=== PATIENT | female | born 1950 | race Native Hawaiian/Other Pacific Islander ===

== ENCOUNTER 2016-12-24 06:19 | Emergency (ER) | payer MEDICARE, OTHER ==
[2016-12-24] MEDS ORDERED: IPRATROPIUM/ALBUTEROL 3 ML NEB INH STA (06:31)
--- NOTE | 2016-12-24 06:32 | ED Physician Documentation ---
PD HPI URI - Stated complaint Stated Complaint: FEVER - Chief complaint Chief Complaint: Fever - History obtained from History obtained from: Patient, Family - History of Present Illness Timing - onset: How many weeks ago (1) Timing details: Gradual onset, Still present Associated symptoms: Fever, Chills, Nasal congestion, Rhinorrhea, Productive cough, Hemoptysis Contributing factors: Sick contact Improves by: Nothing Similar symptoms before: Work up / diagnostics, Treatment Recently seen: Not recently seen - Additional information Additional information: Patient is a 66 year old female who is presenting to the emergency department for cough, congestion and fever. Patient states that the sympotms have been going on for about the last week but they are getting progressively worse. Patient states that she coughed up some blood and was found to have a high fever at home so the family brought her in. Review of Systems Constitutional: reports: Fever, Myalgias Eyes: denies: Loss of vision, Decreased vision Ears: denies: Loss of hearing, Ear pain, Drainage/discharge Nose: reports: Rhinorrhea / runny nose, Congestion, Sinus pressure / pain Throat: denies: Dental pain / toothache, Oral lesions / sores, Sore throat Cardiac: denies: Chest pain / pressure, Pedal edema Respiratory: reports: Dyspnea, Cough GI: denies: Abdominal Pain, Nausea, Vomiting, Constipation, Diarrhea : denies: Dysuria, Frequency, Hesitancy Musculoskeletal: denies: Neck pain, Back pain, Extremity pain, Joint pain, Extremity swelling Neurologic: denies: Generalized weakness, Focal weakness, Numbness Psychiatric: denies: Depressed, Suicidal Immunocompromised: denies: Immunocompromised PD PAST MEDICAL HISTORY - Past Medical History Cardiovascular: Murmur Respiratory: COPD Neuro: None Endocrine/Autoimmune: Type 2 diabetes, HyPOthyroidism GI: GERD LINUX SYSTEM 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: None : Other HEENT: None Psych: None Musculoskeletal: Osteoarthritis Derm: None - Past Surgical History Past Surgical History: Yes General: Appendectomy /LINUX SYSTEM 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: Hysterectomy Cardiovascular: Valve replacement - Present Medications Home Medications: Ambulatory Orders Medication Instructions Recorded Confirmed Fluticasone/Salmeterol [Advair 1 puffs INH BID 10/13/14 09/08/16 500-50 Diskus] Meacham-3 Fatty Acids/Fish Oil [Fish 1,000 mg PO DAILY 10/13/14 09/08/16 Oil 1,000 mg Capsule] Aspirin [Adult Low Dose Aspirin EC] 81 mg PO DAILY 05/12/16 09/08/16 Atorvastatin Calcium 40 mg PO QPM 05/12/16 09/08/16 Levothyroxine [Synthroid] 112 mcg PO DAILY 05/12/16 09/08/16 Losartan [Cozaar] 100 mg PO DAILY 05/12/16 09/08/16 Metoprolol Succinate [Toprol Xl] 12.5 mg PO BID 09/08/16 09/08/16 Multivitamin [Multiple Vitamins] 1 tab PO DAILY 09/08/16 09/08/16 Pantoprazole Sodium [Protonix] 40 mg PO DAILY 09/08/16 09/08/16 Levofloxacin [Levaquin] 750 mg PO DAILY #4 tablet 12/24/16 - Allergies Allergies/Adverse Reactions: Allergies Allergy/AdvReac Type Severity Reaction Status Date / Time gentamicin Allergy Dizziness Verified 12/24/16 06:25 - Social History Does the pt smoke?: No Smoking Status: Former smoker Does the pt drink ETOH?: Yes Does the pt have substance abuse?: No - Immunizations Immunizations are current?: Yes Immunizations: TDAP >10years/unknown - POLST Patient has POLST: No PD ED PE NORMAL - General General: Alert and oriented X 3, Well developed/nourished - HEENT HEENT: Atraumatic, PERRL, Pharynx benign - Neck Neck: Supple, no meningeal sign, No JVD - Cardiac Cardiac: RRR, No murmur - Respiratory Respiratory: No respiratory distress - Abdomen Abdomen: Soft, Non tender, Non distended - Derm Derm: Normal color, No rash - Extremities Extremities: No deformity, No edema - Neuro Neuro: Alert and oriented X 3, coffee grinder 2-12 intact, No motor deficit, No sensory deficit, Normal speech - Psych Psych: Normal mood, Normal affect PD ED PE EXPANDED - General General: Other (diaphoretic) - Respiratory Respiratory: Decreased breath sounds, Right lower lobe, Left lower lobe. No: Labored, Stridor Results - Vitals Vitals: Vital Signs - 24 hr 12/24/16 06:22 Temperature 37.4 C Heart Rate 95 Respiratory 20 Rate Blood Pressure 147/52 H O2 Saturation 99 Oxygen O2 Source [] Room air O2 Source Room air - Labs Labs: Laboratory Tests 12/24/16 12/24/16 12/24/16 06:35 06:37 06:37 WBC 15.9 H RBC 4.05 L Hgb 13.2 Hct 39.8 MCV 98.4 MCH 32.6 H MCHC 33.1 RDW 14.0 Plt Count 159 MPV 8.2 Sodium 137 Potassium 4.0 Chloride 102 Carbon Dioxide 24 Anion Gap 11.0 BUN 27 H Creatinine 1.5 H Estimated GFR (MDRD) 35 L Glucose 168 H Lactic Acid Calcium 9.4 Total Bilirubin 0.8 AST 37 ALT 30 Alkaline Phosphatase 82 Total Protein 8.6 H Albumin 4.2 Globulin 4.4 H Albumin/Globulin Ratio 1.0 Lipase 32 Urine Color YELLOW Urine Clarity CLEAR Urine pH 5.5 Ur Specific [place] 1.025 Urine Protein 100 H Urine Glucose (UA) NEGATIVE Urine Ketones NEGATIVE Urine Occult Blood MODERATE H Urine Nitrite NEGATIVE Urine Bilirubin NEGATIVE Urine Urobilinogen 0.2 (NORMAL) Ur Leukocyte Esterase NEGATIVE Urine RBC 0-5 Urine WBC 0-3 Ur Squamous Epith Cells RARE Squamous Urine Bacteria Rare Ur Microscopic Review INDICATED Urine Culture Comments NOT INDICATED 12/24/16 06:37 WBC RBC Hgb Hct MCV MCH MCHC RDW Plt Count MPV Sodium Potassium Chloride Carbon Dioxide Anion Gap BUN Creatinine Estimated GFR (MDRD) Glucose Lactic Acid 0.9 Calcium Total Bilirubin AST ALT Alkaline Phosphatase Total Protein Albumin Globulin Albumin/Globulin Ratio Lipase Urine Color Urine Clarity Urine pH Ur Specific [place] Urine Protein Urine Glucose (UA) Urine Ketones Urine Occult Blood Urine Nitrite Urine Bilirubin Urine Urobilinogen Ur Leukocyte Esterase Urine RBC Urine WBC Ur Squamous Epith Cells Urine Bacteria Ur Microscopic Review Urine Culture Comments - Rads (name of study) chest x-ray Radiology: EMP read indepedently (new right lower lobe infiltrate, stable consolidation) PD MEDICAL DECISION MAKING - ED course Complexity details: reviewed old records, reviewed results, re-evaluated patient , considered differential, d/w patient, d/w family ED course: Patient was seen and examined at bedside. Labs were drawn and urine was collected. patient had normal vital signs including temperature. Patient was sent for imaging. When patient returned patient was treated with a nebulizer treatment. Chest x-ray revelaed right lower lobe pneumonia. Patient was started on levaquin since she had urinary symptoms and hematuria as well. Patient tolerated the treatement well. Patient had low psi/port score and was stable for discharge with outpatient follow up. Departure - Departure Disposition: 01 Home, Self Care Clinical Impression: Pneumonia Condition: Good Instructions: Pneumonia Tx Follow-Up: Aramis Godfrey MD [Primary Care Provider] - Within 1 week (re-evaluate for symptoms) Prescriptions: Levofloxacin [Levaquin] 750 mg PO DAILY #4 tablet Comments: Your symptoms today are being caused by pneumonia. You had your first dose of antibiotics and you will need to take it daily for the next 4 days. You should take it with yogurt or probiotics to help diminish the GI side effects. You should follow up with your pmd early next week. You may return to the emergency department at any time for new, worsening or uncontrollable symptoms.
[2016-12-24 06:46] LABS: BASOPHILS # (AUTO) 0.1 10^3/uL (0.0-0.1); BASOPHILS % (AUTO) 0.4 %; EOSINOPHILS % (AUTO) 0.3 %; HCT - HEMATOCRIT 39.8 % (37.0-47.0); HGB - HEMOGLOBIN 13.2 g/dL (12.0-16.0); LYMPHOCYTES # (AUTO) 1.2 10^3/uL (1.5-3.5); LYMPHOCYTES % (AUTO) 7.6 %; MEAN CORPUSCULAR HEMOGLOBIN 32.6 pg (27.0-31.0); MEAN CORPUSCULAR HGB CONC 33.1 g/dL (32.0-36.0); MEAN CORPUSCULAR VOLUME 98.4 fL (81.0-99.0); MEAN PLATELET VOLUME 8.2 fL (7.9-10.8); MONOCYTES # (AUTO) 0.9 10^3/uL (0.0-1.0); MONOCYTES % (AUTO) 5.7 %; NEUTROPHILS # (AUTO) 13.7 10^3/uL (1.5-6.6); RED BLOOD COUNT 4.05 10^6/uL (4.20-5.40); UNCORRECTED WHITE BLOOD COUNT 15.9 x10^3/uL; WHITE BLOOD COUNT 15.9 x10^3/uL (4.8-10.8)
[2016-12-24 06:47] LABS: BILIRUBIN,URINE NEGATIVE (NEGATIVE); PH,URINE 5.5 PH (5.0-7.5)
[2016-12-24] MEDS ORDERED: IPRATROPIUM/ALBUTEROL 3 ML NEB INH ONE (06:52)
[2016-12-24 06:54] LABS: UA w/ MICROSCOPIC CHARGE YES
[2016-12-24 06:56] LABS: BILIRUBIN,TOTAL 0.8 mg/dL (0.2-1.0); CALCIUM 9.4 mg/dL (8.5-10.3); CREATININE 1.5 mg/dL (0.4-1.0); TOTAL PROTEIN 8.6 g/dL (6.7-8.2)
[2016-12-24] MEDS ORDERED: levoFLOXacin 250 MG TABLET PO STA ×2 (07:07)
[2016-12-24 07:11] LABS: UR CULTURE IF IND NOT INDICATED; WBC,URINE 0-3 /HPF (0-5)
[2016-12-24] MEDS ORDERED: levoFLOXacin 250 MG TABLET PO ONE (07:16)
--- NOTE | 2016-12-24 07:24 | XRAY Preliminary Report ---
Exam: XR Chest 2 View PA/LAT IMPRESSION: 1. New patchy bibasilar groundglass opacities may reflect pneumonia in the proper clinical setting. 2. Stable somewhat ovoid nodular opacity projecting at the right mid lung. [facility] SITE ID: [id number]
--- NOTE | 2016-12-24 07:26 | XRAY Report ---
EXAM: CHEST RADIOGRAPHY EXAM DATE: 12/24/2016 06:58 AM. CLINICAL HISTORY: Fever, cough. COMPARISON: 09/08/2016. TECHNIQUE: 2 views. FINDINGS: Lungs/Pleura: Mildly low lung volumes. Mild vascular congestion. Patchy groundglass opacities at the lung bases . Ovoid nodular opacity at the right mid lung appear stable. No pleural effusion. No pneum othorax. Mediastinum: Stable cardiac silhouette size and prior sternotomy changes. Atherosclerotic vascular ca lcification. Other: None. IMPRESSION: 1. New patchy bibasilar groundglass opacities may reflect pneumonia in the proper clinical setting. 2. Stable somewhat ovoid nodular opacity projecting at the right mid lung. [facility] Referring Provider Line: [phone] SITE ID: [id number]
[2016-12-24 07:28] VITALS: BP 125/46
[2016-12-24 07:42] LABS: NP AUTO DIFFERENTIAL? NO; NP MAN DIFFERENTIAL? YES; PLATELET ESTIMATE, MANUAL NORMAL (130-450,000) (NORMAL); PLATELET MORPHOLOGY NORMAL APPEARANCE (NORMAL)
== END 2016-12-24 07:45 | disposition home or self-care (01) ==
LOC: ED 06:19
DX: J18.9 Pneumonia, unspecified organism (principal); R31.9 Hematuria, unspecified; J44.9 Chronic obstructive pulmonary disease, unspecified; E11.9 Type 2 diabetes mellitus without complications; E03.9 Hypothyroidism, unspecified; Z95.2 Presence of prosthetic heart valve; Z79.82 Long term (current) use of aspirin; Z87.891 Personal history of nicotine dependence
CPT/HCPCS: 36415; 71020; 80053; 81001; 83605; 83690; 85025; 94640; 99283; 99284; A9270; J7620; 81003; 87086; 94664

== ENCOUNTER 2017-05-19 22:27 | Inpatient (IN) | payer MEDICARE, OTHER ==
[2017-05-19] MEDS ORDERED: SUCRALFATE 1 GM/10 ML UDC PO STA (23:21)
[2017-05-19] MEDS ORDERED: MAG HYDROX/AL HYDROX/SIMETH 30 ML UDC PO STA (23:21)
[2017-05-19] MEDS ORDERED: LIDOCAINE VISCOUS 2% 100 ML BOTTLE MM STA (23:21)
[2017-05-19] MEDS ORDERED: LIDOCAINE VISCOUS 2% 15 ML UDC MM ONE (23:30)
[2017-05-19] MEDS ORDERED: SUCRALFATE 1 GM/10 ML UDC ONE (23:30)
[2017-05-19] MEDS ORDERED: MAG HYDROX/AL HYDROX/SIMETH 30 ML UDC ONE (23:30)
[2017-05-20] MEDS ORDERED: ONDANSETRON 4 MG/2 ML VIAL IVP STA (00:05)
[2017-05-20] MEDS ORDERED: HYDROmorphone 1 MG/ML SYRINGE IVP STA (00:05)
[2017-05-20] MEDS ORDERED: HYDROmorphone 1 MG/ML SYRINGE ONE (00:11)
[2017-05-20] MEDS ORDERED: ONDANSETRON 4 MG/2 ML VIAL ONE (00:11)
[2017-05-20] MEDS ORDERED: SODIUM CHLORIDE 0.9% 1,000 ML IV ONE (00:42)
[2017-05-20] MEDS ORDERED: IOPAMIDOL-300 100 ML VIAL IVP ONE (02:16)
[2017-05-20] MEDS ORDERED: SODIUM CHLORIDE FLUSH 0.9% 10 ML SYRINGE IVP PRN (04:28)
[2017-05-20] MEDS: SODIUM CHLORIDE FLUSH 0.9% 10 ML SYRINGE IVP SCH ×3 (05:09→23:28)
[2017-05-20] MEDS: SODIUM CHLORIDE 0.9% 1,000 ML IV SCH ×2 (05:09→15:42)
[2017-05-20] MEDS: MORPHINE 2 MG/ML SYRINGE IVP PRN ×4 (05:10→23:40)
[2017-05-20] MEDS ORDERED: LEVOTHYROXINE 25 MCG TABLET ONE (06:27)
[2017-05-20] MEDS ORDERED: LEVOTHYROXINE 100 MCG TABLET ONE (06:27)
[2017-05-20] MEDS: LEVOTHYROXINE 112 MCG TABLET PO SCH (06:32)
[2017-05-20] MEDS ORDERED: FLUTICASONE/SALMETEROL 500/50 INHALER INH SCH (07:00)
[2017-05-20] MEDS: LOSARTAN 50 MG TABLET PO SCH (08:27)
[2017-05-20] MEDS: ASPIRIN EC 81 MG TABLET PO SCH (08:27)
[2017-05-20] MEDS: MULTIVITAMIN TABLET PO SCH (08:27)
[2017-05-20] MEDS: METOPROLOL SUCCINATE 25 MG TABLET PO SCH ×2 (08:27→21:34)
[2017-05-20] MEDS: POLYETHYLENE GLYCOL 3350 17 GM PACKET PO SCH (08:31)
[2017-05-20] MEDS ORDERED: PANTOPRAZOLE 40 MG TABLET PO SCH (09:00)
[2017-05-20] MEDS ORDERED: NON FORMULARY MED (Multivitamin [Multiple Vitamins] 1 TAB) PO SCH (09:00)
[2017-05-20] MEDS: HEPARIN 5,000 UNIT/ML VIAL SUBQ SCH ×2 (09:00→21:35)
[2017-05-20] MEDS ORDERED: SALMETEROL INH SCH (09:00)
[2017-05-20] MEDS ORDERED: FLUTICASONE INH SCH (09:00)
[2017-05-20] MEDS ORDERED: AZITHROMYCIN INJ 500 MG in SODIUM CHLORIDE 0.9% 250 ML IV SCH (09:00)
[2017-05-20] MEDS: BUDESONIDE 0.5 MG/2 ML NEB INH SCH ×2 (09:30→19:47)
[2017-05-20] MEDS: FORMOTEROL FUMARATE NEB 20 MCG/2 ML INH SCH ×2 (09:30→19:47)
[2017-05-20] MEDS: metroNIDAZOLE 500 MG/100 ML 100 ML IV SCH ×2 (10:16→17:57)
[2017-05-20] MEDS: ONDANSETRON 4 MG/2 ML VIAL IVP PRN ×2 (10:31→23:40)
[2017-05-20] MEDS: PANTOPRAZOLE 40 MG VIAL IVP SCH (11:00)
[2017-05-20] MEDS: ATORVASTATIN 40 MG TABLET PO SCH ×2 (21:25→21:35)
[2017-05-21] MEDS: SODIUM CHLORIDE 0.9% 1,000 ML IV SCH ×2 (00:46→09:40)
[2017-05-21] MEDS: metroNIDAZOLE 500 MG/100 ML 100 ML IV SCH ×2 (01:38→11:07)
[2017-05-21] MEDS: SODIUM CHLORIDE FLUSH 0.9% 10 ML SYRINGE IVP SCH ×2 (05:34→14:05)
[2017-05-21] MEDS: ONDANSETRON 4 MG/2 ML VIAL IVP PRN (05:59)
[2017-05-21] MEDS: PANTOPRAZOLE 40 MG VIAL IVP SCH (06:01)
[2017-05-21] MEDS: LEVOTHYROXINE 112 MCG TABLET PO SCH (06:03)
[2017-05-21] MEDS: BUDESONIDE 0.5 MG/2 ML NEB INH SCH (07:43)
[2017-05-21] MEDS: FORMOTEROL FUMARATE NEB 20 MCG/2 ML INH SCH (07:44)
[2017-05-21] MEDS: ASPIRIN EC 81 MG TABLET PO SCH (08:50)
[2017-05-21] MEDS: POLYETHYLENE GLYCOL 3350 17 GM PACKET PO SCH (08:50)
[2017-05-21] MEDS: METOPROLOL SUCCINATE 25 MG TABLET PO SCH (08:50)
[2017-05-21] MEDS: LOSARTAN 50 MG TABLET PO SCH (08:50)
[2017-05-21] MEDS: MULTIVITAMIN TABLET PO SCH (08:50)
[2017-05-21] MEDS: HEPARIN 5,000 UNIT/ML VIAL SUBQ SCH (08:51)
[2017-05-21] MEDS ORDERED: DOCUSATE SODIUM 100 MG CAPSULE PO SCH (14:00)
== END 2017-05-21 15:06 | disposition home or self-care (01) | DRG 390 ==
DX: K56.60 Unspecified intestinal obstruction (principal); E78.5 Hyperlipidemia, unspecified; E11.8 Type 2 diabetes mellitus with unspecified complications; I10 Essential (primary) hypertension; K21.9 Gastro-esophageal reflux disease without esophagitis; M19.90 Unspecified osteoarthritis, unspecified site; J45.909 Unspecified asthma, uncomplicated; J44.9 Chronic obstructive pulmonary disease, unspecified; E03.9 Hypothyroidism, unspecified; E11.9 Type 2 diabetes mellitus without complications; Z95.3 Presence of xenogenic heart valve; Z79.82 Long term (current) use of aspirin; Z79.899 Other long term (current) drug therapy; Z87.891 Personal history of nicotine dependence; Z87.01 Personal history of pneumonia (recurrent); Z86.79 Personal history of other diseases of the circulatory system; R91.1 Solitary pulmonary nodule; Z79.51 Long term (current) use of inhaled steroids

== ENCOUNTER 2017-11-11 08:00 | Outpatient (CLI) | payer MEDICARE, OTHER ==
[2017-11-11 16:53] LABS: PT - PROTHROMBIN TIME 59.3 secs (9.9-12.6)
[2017-11-11 17:10] LABS: INR 5.6 (0.8-1.2)
== END 2017-11-11 08:01 | disposition home or self-care (01) ==
LOC: LAB.R 08:00
PROVIDERS: ATTEND Family Medicine
DX: Z95.2 Presence of prosthetic heart valve (principal)
CPT/HCPCS: 85610

== ENCOUNTER 2018-01-18 09:50 | Outpatient (CLI) | payer MEDICARE, OTHER ==
[2018-01-18 10:09] LABS: PT - PROTHROMBIN TIME 11.3 secs (9.9-12.6)
== END 2018-01-18 09:51 | disposition home or self-care (01) ==
LOC: LAB 09:50
PROVIDERS: ATTEND Family Medicine
DX: I10 Essential (primary) hypertension (principal); Z95.2 Presence of prosthetic heart valve; E03.9 Hypothyroidism, unspecified; M12.89 Other specific arthropathies, not elsewhere classified, multiple sites
CPT/HCPCS: 84443; 85610

== ENCOUNTER 2018-01-24 08:44 | Day surgery (SDC) | payer MEDICARE, OTHER ==
[2018-01-24] MEDS ORDERED: ceFAZolin 2 GM/50 ML 2 GM/50 ML BAG IV ONE (08:54)
[2018-01-24] MEDS ORDERED: LACTATED RINGERS 1,000 ML IV ONE (08:57)
[2018-01-24] MEDS ORDERED: BUPIVACAINE 0.5% PF 10 ML VIAL IM ONE (09:30)
[2018-01-24] MEDS ORDERED: LIDOCAINE 1%-EPI 1:100000 20 ML MDV ONE (09:35)
[2018-01-24] MEDS ORDERED: BUPIVACAINE 0.5% PF 10 ML VIAL ONE (09:35)
[2018-01-24] MEDS ORDERED: PROPOFOL 200 MG/20 ML VIAL IVP ONE (12:00)
[2018-01-24] MEDS ORDERED: fentaNYL 250 MCG/5 ML VIAL IVP ONE (12:00)
--- NOTE | 2018-01-24 12:13 | XRAY Report ---
INTRAPROCEDURAL FLUOROSCOPIC PROCEDURE: 01/24/2018 INDICATION: Intraop. TECHNIQUE: Two images, total fluoro time 57 seconds. Total dose 0.09 milligray. FINDINGS: Two images. The final image shows a left central catheter with the tip overlying the superior vena cava. Please refer to the operative report for further details. IMPRESSION: INTRAOPERATIVE FLUORO ABOVE. TD: 01/24/2018 12:12 MTDD
[2018-01-24] MEDS ORDERED: ACETAMINOPHEN 325 MG TABLET PO ONE (12:54)
--- NOTE | 2018-01-24 13:37 | XRAY Report ---
FRONTAL CHEST: 01/24/2018 COMPARISON: Frontal chest 12/24/2016 and intraprocedural views earlier in the day. INDICATION: Port placement. TECHNIQUE: Single frontal view. FINDINGS: Right pleural effusion and right basilar atelectasis are more conspicuous on this exam. No pneumothorax. Mediastinum stable. Sternotomy noted. Left thoracic port, tip overlies possibly the SVC or azygos vein. IMPRESSION: THORACIC PORT ABOVE. LATERAL VIEW MAY HELP IN LOCALIZATION OF THE TIP. TD: 01/24/2018 13:37 [facility]
--- NOTE | 2018-01-24 13:42 | XRAY Report ---
LATERAL CHEST VIEW: 01/24/2018 COMPARISON: Comparison study frontal chest earlier in the day. INDICATION: Line placement. TECHNIQUE: One lateral view only. FINDINGS: Left thoracic port, tip appears to overlie the superior vena cava. Right pleural effusion is noted. Sternotomy and heart valve prosthesis are noted. IMPRESSION: CATHETER TIP APPEARS TO OVERLIE THE SUPERIOR VENA CAVA. TD: 01/24/2018 13:42 [facility]
[2018-01-24 13:44] VITALS: BP 150/72
--- NOTE | 2018-01-24 13:55 | OPERATIVE REPORT ---
Operative Report - General Procedure Date: 01/24/18 Pre-Op Diagnosis: cancer Procedure Performed: indwelling central catheter placement Post Op Diagnosis: cancer - Procedure Note Primary Surgeon: andrew Anesthesia Technique: MAC - Other Other Information/Narrative: Indication for procedure: This is a 67-year-old female with a history of concomitant lung and breast cancer who will require chemotherapy. Findings after obtaining informed consent from the patient she was brought into the operating room and positioned on the operating table in the supine position taking noted pressure points. Shoulder roll was placed. She was administered sedation. She was then prepped and draped in the usual sterile fashion. Perioperative antibiotics were administered. A timeout was taken according to protocol. Using her bony landmarks the finder needle was inserted below the left clavicle and advanced into the left subclavian vein without difficulty. The guidewire was threaded but would not advance. The guidewire was removed and the needle was repositioned however I could not regain access into the subclavian vein. For this reason I attempted ultrasound guidance of subclavian vein cannulation but I was unable to clearly identify the subclavian vein. I then moved to the left internal jugular vein. This was easily accessed under ultrasound guidance. The guidewire was inserted and again did not thread easily. The guidewire was removed and good blood flow from the needle was confirmed. I then exchanged the guidewire for a glide wire which did advance easily.The Port-A-Cath pocket was then created by creating a 1/2 cm incision on the left anterior chest wall and deepened down to the pectoralis fascia. The pocket was created with blunt dissection. The tunneling device was then used to tunnel the catheter from the pocket to the IJ needle insertion site after extending this incision slightly. Under fluoroscopic guidance the dilator and Peel-away sheath were inserted over the Glidewire using a Seldinger technique and was seen to be advancing along appropriate planes and advanced easily. The dilator and wire were removed and the catheter inserted under fluoroscopy. During fluoroscopy the catheter was noted to be flipping up towards the patient' s right subclavian vein as I attempted to advance. I manipulated the catheter several times but was unable to manipulate the catheter to descend into the SVC. I attempted to reinsert both the guide and the Glidewire through the catheter distally to reorient to the catheter but was unable to do so because of the bend in the catheter at the neck. At this point the Guidewires were removed and the catheter was cut at the level of the neck. The distal portion of the catheter was withdrawn through the tunneling site. I then reinserted the Glidewire through the catheter and under fluoroscopic guidance directed down towards the IVC. The wire was noted to be into the right atrium. The catheter was removed. Again under fluoroscopic guidance the dilator and peel- away sheath were inserted over the wire using a Seldinger technique and again were seen to advance along appropriate planes into the SVC. The wire and dilator were removed and the new catheter inserted. This time, however, I had some difficulty advancing the catheter as there seemed to be a kink in the sheath. Sheath was pulled back slightly and eventually I was able to insert the catheter. At this point fluoroscopy demonstrated the catheter to likely be seated in the superior vena cava. The catheter was then pulled back so that no kinks were left in the catheter and trimmed to the appropriate length. It was then connected to the port. The port was then sutured to the pectoralis fascia using 2 3-0 Prolene sutures. Prior to skin closure the port was accessed with a Villegas needle and demonstrated good blood flow with ease of flushing with heparinized saline. The subcutaneous tissue was closed with 3-0 Vicryl and the skin incisions closed with 4-0 Monocryl. Dermabond was applied. The patient was extubated and taken to the recovery room in stable condition. Postoperative chest x-ray demonstrated the catheter to be sitting in the superior vena cava. 25 cc of local anesthetic was used throughout the procedure. EBL 10 cc
== END 2018-01-24 08:45 | disposition home or self-care (01) ==
LOC: SDS 08:44
PROVIDERS: ATTEND Surgery
PROC: 0JH60WZ Insertion of Totally Implantable Vascular Access Device into Chest Subcutaneous Tissue and Fascia, Open Approach (ICD-10-PCS; principal; 2018-01-24 10:00)
DX: C50.919 Malignant neoplasm of unspecified site of unspecified female breast (principal); C34.91 Malignant neoplasm of unspecified part of right bronchus or lung; E11.9 Type 2 diabetes mellitus without complications; Z79.82 Long term (current) use of aspirin; I10 Essential (primary) hypertension; E78.00 Pure hypercholesterolemia, unspecified
CPT/HCPCS: 36561; 71045; A9270; C1788; J0690; J3010; J7120

== ENCOUNTER 2018-03-22 08:00 | Outpatient (CLI) | payer MEDICARE, OTHER ==
[2018-03-22 09:18] LABS: CALCIUM 8.7 mg/dL (8.5-10.3); CREATININE 2.2 mg/dL (0.4-1.0)
[2018-03-22 10:27] LABS: CREATININE,URINE 146.3 mg/dL; PROTEIN/CREATININE RATIO,URINE 0.2 (<=0.2)
== END 2018-03-22 08:01 | disposition home or self-care (01) ==
LOC: LAB.R 08:00
PROVIDERS: ATTEND Internal Medicine Nephrology
DX: N05.9 Unspecified nephritic syndrome with unspecified morphologic changes (principal); R80.9 Proteinuria, unspecified; E83.30 Disorder of phosphorus metabolism, unspecified; N25.81 Secondary hyperparathyroidism of renal origin
CPT/HCPCS: 80048; 82570; 83970; 84100; 84156

== ENCOUNTER 2018-04-02 12:10 | Inpatient (IN) | payer MEDICARE, OTHER ==
[2018-04-02] MEDS ORDERED: MECLIZINE 12.5 MG TABLET PO STA (13:15)
--- NOTE | 2018-04-02 13:18 | ED Physician Documentation ---
PD HPI DYSPNEA - Stated complaint Stated Complaint: COUGHING UP BLOOD - Chief complaint Chief Complaint: Resp - History obtained from History obtained from: Patient, Family () - History of Present Illness Timing - onset: Other (67-year-old woman with history of bovine aortic valve replacement not on anticoagulation and more recently she had a VATS lobectomy for lung cancer in October and has been on chemotherapy via a left chest wall port for the last couple of months. Last chemo was about a week ago. Her last 2 weeks she has had an increasing cough and it has been worsening despite taking Keflex. Now today she has chills and increased shortness of breath, generalized weakness, and gross hemoptysis. There is no leg swelling.) Review of Systems Constitutional: reports: Chills. denies: Fever Nose: denies: Rhinorrhea / runny nose, Congestion Throat: denies: Sore throat Cardiac: denies: Chest pain / pressure, Palpitations, Pedal edema, Calf pain Respiratory: reports: Hemoptysis. denies: Wheezing PD PAST MEDICAL HISTORY - Past Medical History Cardiovascular: Murmur Respiratory: COPD, Other Endocrine/Autoimmune: Type 2 diabetes, HyPOthyroidism GI: GERD PROGRAM SUPERVISOR: None : Other HEENT: None Psych: None Musculoskeletal: Osteoarthritis Derm: None Other Past Medical History: history of Lung CA - Past Surgical History Past Surgical History: Yes General: Appendectomy /PROGRAM SUPERVISOR: Hysterectomy Cardiovascular: Valve replacement - Present Medications Home Medications: Ambulatory Orders Medication Instructions Recorded Confirmed Aspirin [Adult Low Dose Aspirin EC] 81 mg PO DAILY 05/12/16 04/02/18 Levothyroxine [Synthroid] 112 mcg PO QDAC 05/12/16 04/02/18 Pantoprazole Sodium [Protonix] 40 mg PO QDAC 09/08/16 04/02/18 Anastrozole 1 mg PO DAILY 12/21/17 04/02/18 LORazepam [Ativan] 0.5 mg PO Q8HR PRN 03/22/18 04/02/18 Fluticasone/Salmeterol [Advair 1 puffs INH BID 04/02/18 04/02/18 500-50 Diskus] Multivitamin [Theragran] 1 tab PO DAILY 04/02/18 04/02/18 [place]-3 Acid Ethyl Esters [Lovaza] 1 gm PO DAILY 04/02/18 04/02/18 Prochlorperazine Maleate 10 mg PO Q6H PRN 04/02/18 04/02/18 - Allergies Allergies/Adverse Reactions: Allergies Allergy/AdvReac Type Severity Reaction Status Date / Time gentamicin Allergy ototoxicity Verified 04/02/18 12:20 - Social History Does the pt smoke?: No Smoking Status: Never smoker Does the pt drink ETOH?: Yes Does the pt have substance abuse?: No - Family History Family history: reports: Non contributory - Immunizations Immunizations are current?: Yes Immunizations: TDAP >10years/unknown - POLST Patient has POLST: No PD ED PE NORMAL - Vitals Vital signs reviewed: Yes - General General: Alert and oriented X 3, No acute distress, Other (Alopecia from the chemotherapy) - HEENT HEENT: PERRL, EOMI - Neck Neck: Supple, no meningeal sign, No bony TTP - Cardiac Cardiac: RRR, Other (2 out of 6 decrescendo systolic murmur) - Respiratory Respiratory: No respiratory distress, Clear bilaterally - Abdomen Abdomen: Soft, Non tender - Back Back: No CVA TTP, No spinal TTP - Derm Derm: Normal color, Warm and dry - Extremities Extremities: No edema, No calf tenderness / cord - Neuro Neuro: Alert and oriented X 3, Normal speech Results - Vitals Vitals: Vital Signs - 24 hr 04/02/18 04/02/18 04/02/18 12:16 13:30 15:51 Temperature 36.7 C 36.2 C L Heart Rate 86 88 85 Respiratory 18 16 17 Rate Blood Pressure 140/57 H 139/60 H 137/68 H O2 Saturation 100 98 99 04/02/18 04/02/18 16:33 17:52 Temperature 37.3 C Heart Rate 86 83 Respiratory 16 16 Rate Blood Pressure 155/82 H 159/129 H O2 Saturation 99 100 Oxygen O2 Source [Without Activity] Room air O2 Source Room air - Labs Labs: Laboratory Tests 04/02/18 04/02/18 04/02/18 14:13 14:13 14:13 WBC 4.8 RBC 2.02 L Hgb 6.5 L* Hct 19.5 L* MCV 96.5 MCH 32.3 H MCHC 33.5 RDW 15.7 H Plt Count 24 L* MPV 10.2 Neut # 3.0 Lymph # 1.5 [place] # 0.2 Eos # 0.0 Baso # 0.0 Absolute Nucleated RBC 0.00 Nucleated RBC % 0.0 PT 11.4 INR 1.0 D-Dimer Sodium 137 Potassium 4.4 Chloride 104 Carbon Dioxide 23 Anion Gap 10.0 BUN 21 H Creatinine 2.2 H Estimated GFR (MDRD) 22 L Glucose 95 Calcium 8.5 Total Bilirubin 0.8 AST 31 ALT 20 Alkaline Phosphatase 81 Troponin I Total Protein 7.1 Albumin 3.7 Globulin 3.4 Albumin/Globulin Ratio 1.1 Lipase 30 Blood Type Antibody Screen Crossmatch IS Only 04/02/18 04/02/18 04/02/18 15:45 18:20 18:20 WBC RBC Hgb Hct MCV MCH MCHC RDW Plt Count MPV Neut # Lymph # [place] # Eos # Baso # Absolute Nucleated RBC Nucleated RBC % PT INR D-Dimer 629.0 H Sodium Potassium Chloride Carbon Dioxide Anion Gap BUN Creatinine Estimated GFR (MDRD) Glucose Calcium Total Bilirubin AST ALT Alkaline Phosphatase Troponin I < 0.04 Total Protein Albumin Globulin Albumin/Globulin Ratio Lipase Blood Type O POSITIVE Antibody Screen NEGATIVE Crossmatch IS Only See Detail - Rads (name of study) CT CHest Radiology: EMP read contemporaneously (Extensive groundglass opacities throughout the right lung favoring infection.) PD MEDICAL DECISION MAKING - ED course ED course: 67-year-old woman with history of prosthetic aortic valve, lung cancer status post lobectomy undergoing chemotherapy presents with 2 weeks of cough with acute worsening today and hemoptysis. Chest x-ray did not show a clear source. I planned to CT her with contrast but her renal function would not tolerate that. Her blood work is notable for significant anemia and thrombocytopenia. I spoke with Dr. Montes for admission and the concern was there might be a major source of hemoptysis of this was followed by noncontrasted CT showing a pneumonia and I spoke with Dr. Montes again for admission at 5:05 PM. Departure - Departure Disposition: [facility] DC/Xfer Clinical Impression: Hemoptysis, Anemia, Thrombocytopenia, Lung cancer, Maintenance chemotherapy following disease, Pneumonia Condition: Stable Discharge Date/Time: 04/02/18 19:27
[2018-04-02 14:28] LABS: BASOPHILS % (AUTO) 0.4 %; EOSINOPHILS % (AUTO) 0.7 %; LYMPHOCYTES # (AUTO) 1.5 10^3/uL (1.5-3.5); LYMPHOCYTES % (AUTO) 31.6 %; MEAN CORPUSCULAR HEMOGLOBIN 32.3 pg (27.0-31.0); MEAN CORPUSCULAR HGB CONC 33.5 g/dL (32.0-36.0); MEAN CORPUSCULAR VOLUME 96.5 fL (81.0-99.0); MEAN PLATELET VOLUME 10.2 fL (7.9-10.8); MONOCYTES # (AUTO) 0.2 10^3/uL (0.0-1.0); NEUTROPHILS % (AUTO) 62.3 %; RED BLOOD COUNT 2.02 10^6/uL (4.20-5.40); RED CELL DISTRIBUTION WIDTH 15.7 % (12.0-15.0); WHITE BLOOD COUNT 4.8 x10^3/uL (4.8-10.8)
[2018-04-02 14:34] LABS: HGB - HEMOGLOBIN 6.5 g/dL (12.0-16.0); PLT - PLATELET COUNT 24 10^3/uL (130-450)
[2018-04-02 14:39] LABS: ALBUMIN 3.7 g/dL (3.2-5.5); ALBUMIN/GLOBULIN RATIO 1.1 (1.0-2.2); BILIRUBIN,TOTAL 0.8 mg/dL (0.2-1.0); CALCIUM 8.5 mg/dL (8.5-10.3); CREATININE 2.2 mg/dL (0.4-1.0); TOTAL PROTEIN 7.1 g/dL (6.7-8.2)
[2018-04-02 15:33] LABS: PT - PROTHROMBIN TIME 11.4 secs (9.9-12.6)
--- NOTE | 2018-04-02 15:41 | XRAY Report ---
EXAM: CHEST RADIOGRAPHY EXAM DATE: 04/02/2018 03:30 PM. CLINICAL HISTORY: Hemoptysis. COMPARISON: 01/24/2018. TECHNIQUE: 2 views. FINDINGS: Lungs/Pleura: There is increased opacity within the right lung base. The left lung is grossly clear. No evidence of pneumothorax. Mediastinum: There is cardiomegaly. Left Port-A-Cath is in place. Patient has undergone median sterno matias. Other: None. IMPRESSION: 1. There is opacity within the right lower lung which likely represents airspace disease and complex effusion/pleural thickening. 2. Lungs are otherwise clear. 3. There is no evidence of pneumothorax. 4. There is cardiomegaly. [facility] Referring Provider Line: [phone] SITE ID: [id number]
--- NOTE | 2018-04-02 16:59 | CT Report ---
EXAM: CT CHEST EXAM DATE: 04/02/2018 04:21 PM. CLINICAL HISTORY: Hemoptysis. COMPARISONS: 01/19/2015. TECHNIQUE: Routine helical CT imaging was performed through the chest. IV contrast: None. Reconstruct ions: Coronal and sagittal. In accordance with CT protocol optimization, one or more of the following dose reduction techniques w ere utilized for this exam: automated exposure control, adjustment of mA and/or KV based on patient s ize, or use of iterative reconstructive technique. FINDINGS: Lungs/Pleura: No pleural effusion. Postsurgical changes in the right thorax with probable resection o f the right lower lobe. Extensive ground glass throughout the right lung, favored to represent infect ion. Alveolar hemorrhage may also be a consideration given provided clinical history of hemoptysis. T his should be followed to resolution to exclude neoplastic causes of ground glass opacification such as with diffuse bronchioloalveolar carcinoma. The left lung is clear. Mediastinum: Postsurgical changes from median sternotomy. Left-sided chest port with tip in the super ior third of the SVC and oriented laterally. Mitral valve prosthesis. No pericardial effusion. Bones: Postsurgical changes from median sternotomy. Visualized unenhanced upper Abdomen: Status post cholecystectomy. Otherwise unremarkable. Other: None. IMPRESSION: Extensive groundglass opacification throughout the right lung, favor infection, see comment. [facility] Referring Provider Line: [phone] SITE ID: [id number]
[2018-04-02] MEDS ORDERED: AZITHROMYCIN INJ 500 MG in SODIUM CHLORIDE 0.9% 250 ML IV STA (17:05)
[2018-04-02] MEDS ORDERED: cefTRIAXone 1 GM in SODIUM CHLORIDE 0.9% MINIBAG 100 ML IV STA (17:05)
[2018-04-02] MEDS ORDERED: PIPERACILLIN/TAZOBACTAM 4.5 GM in SODIUM CHLORIDE 0.9% MINIBAG 100 ML IV STA (17:22)
[2018-04-02] MEDS ORDERED: ONDANSETRON 4 MG/2 ML VIAL IVP PRN (18:23)
[2018-04-02] MEDS ORDERED: SODIUM CHLORIDE FLUSH 0.9% 10 ML SYRINGE IVP PRN (18:23)
[2018-04-02] MEDS ORDERED: ZOLPIDEM 5 MG TABLET PO PRN (18:23)
[2018-04-02] MEDS ORDERED: LORazepam 0.5 MG TABLET PO PRN (18:30)
[2018-04-02] MEDS ORDERED: cloNIDine 0.1 MG TABLET PO PRN (18:32)
--- NOTE | 2018-04-02 18:36 | HISTORY & PHYSICAL EXAMINATION ---
Chief Complaint - Chief Complaint Chief Complaint: shortness of breath and hemoptysis History of Present Illness - Admitted From Admitted From:: ER - History Obtained From History obtained from: pt - History of Present Illness HPI Comment/Other: Ms. 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 Pt denies fever , and chest pain. Pt report she vomited about 10-20 ml blood when she had a very hard cough. Pt report she has twice hemoptysis before. The vomited volume of blood was similar as before. Pt report she had a penitentiary history of cigarette smoking. Her father had breast caner and from the breast cancer. Pt report her renal function continue to deteriorate since she had all these chemotherapy. Pt report in the last 2 weeks she has been an increasing cough, and even it has became worsening despite she took Keflex. Today morning she had chills but without fever, and increased shortness of breath, generalized weakness, and a small amount of hemoptysis. CT of chest without contrast shows a pneumonia. Pt had significant anemia and thrombocytopenia, CKD stage 4 in ER lab test today. History - Past Medical History Cardiovascular: reports: Murmur Respiratory: reports: COPD, Other Endocrine/Autoimmune: reports: Type 2 diabetes, HyPOthyroidism GI: reports: GERD INSTALLATION DRAFTER: reports: None : reports: Other HEENT: reports: None Psych: reports: None Musculoskeletal: reports: Osteoarthritis Derm: reports: None MRSA Hx?: No Other Past Medical History: history of Lung CA - Past Surgical History General: reports: Appendectomy /INSTALLATION DRAFTER: reports: Hysterectomy Cardiovascular: reports: Valve replacement - Family & Social History Family History: Mother: , Alzheimer's Disease, CAD, Father: , Cancer Family History Comment/Other: Ms. Walls is living [facility] with her . She had three children with 3 grandchildren. Living arrangement: At home Living Situation: With spouse/s.o. - Substance History Use: Uses substance without health or social issues: Tobacco Abuse: Recurrent use of substance despite neg consequences: NONE Dependence: Experiences withdrawal or developed tolerances: NONE - POLST Patient has POLST: No POLST Status: Full Code Meds/Allgy - Home Medications Home Medications: Ambulatory Orders Medication Instructions Recorded Confirmed Aspirin [Adult Low Dose Aspirin EC] 81 mg PO DAILY 05/12/16 04/02/18 Levothyroxine [Synthroid] 112 mcg PO QDAC 05/12/16 04/02/18 Pantoprazole Sodium [Protonix] 40 mg PO QDAC 09/08/16 04/02/18 Anastrozole 1 mg PO DAILY 12/21/17 04/02/18 LORazepam [Ativan] 0.5 mg PO Q8HR PRN 03/22/18 04/02/18 Fluticasone/Salmeterol [Advair 1 puffs INH BID 04/02/18 04/02/18 500-50 Diskus] Multivitamin [Theragran] 1 tab PO DAILY 04/02/18 04/02/18 [place]-3 Acid Ethyl Esters [Lovaza] 1 gm PO DAILY 04/02/18 04/02/18 Prochlorperazine Maleate 10 mg PO Q6H PRN 04/02/18 04/02/18 - Allergies Allergies/Adverse Reactions: Allergies Allergy/AdvReac Type Severity Reaction Status Date / Time gentamicin Allergy ototoxicity Verified 04/02/18 12:20 Review of Systems - Constitutional Constitutional: reports: Fatigue, Chills, Weakness. denies: Fever, Malaise, Poor appetite, Diaphoresis, Night sweats - Eyes Eyes: denies: Pain, Blurred vision, Spots in vision, Field loss, Vision loss, Dipolpia - Ears, Nose & Throat Ears, Nose & Throat: reports: Hearing loss. denies: Ear pain, Hearing aids, Tinnitus, Vertigo, Nasal pain, Nasal discharge, Nosebleeds, Nasal obstruction, Nasal congestion, Postnasal drainage, Dentures, Sore throat, Hoarseness, Mouth lesions, Bleeding gums - Cardiovascular Cariovascular: denies: Irregular heart rate, Palpitations, Chest pain, Edema, Lightheadedness, Syncope, Exertional dyspnea, Decr. exercise tolerance - Respiratory Respiratory: reports: Cough, Sputum production, Hemoptysis, SOB with exertion. denies: Wheezing, Snoring, Orthopnea, SOB at rest, Apnea - Gastrointestinal Gastrointestinal: denies: Abdominal pain, Abdominal distention, Constipation, Diarrhea, Change in bowel habits, Rectal bleeding, Black stools, Bloody stools, Nausea, Vomiting, Bile emesis, Emil blood emesis, Coffee grounds emesis, Reflux /heartburn - Genitourinary Genitourinary: denies: Dysuria, Frequency, Urgency, Hematuria, Incontinence, Flank pain, Nocturia, Urethral discharge - Musculoskeletal Musculoskeletal: denies: Muscle pain, Back pain, Muscle aches, Stiffness, Limited range of motion, Muscle weakness, Gout, Joint pain - Integumentary Integumentary: denies: Rash, Pruritis, Lesions, Dryness, Lumps, Acne, Pigment changes, Nail changes - Neurological Neurological: denies: General weakness, Focal weakness, Headache, Dizziness, Numbness, Memory problems, Pre-existing deficit, Abnormal gait, Seizures, Incoordination, Slurred speech - Psychiatric Psychiatric: denies: Depression, Anxiety, Suicidal, Delusions, Hallucinations, Homicidal - Endocrine Endocrine: denies: Polyuria, Polydypsia, Polyphagia, Intolerance to cold - Hematologic/Lymphatic Hematologic/Lymphatic: reports: Anemia. denies: Bruising, Petechiae, Blood clots, Lymphadenopathy, Bleeding tendencies Exam - Vital Signs Reviewed Vital Signs: Yes Vital Signs: Vital Signs x48h Temp Pulse Resp BP Pulse Ox 04/02/18 17:52 37.3 C 83 16 159/129 H 100 04/02/18 16:33 86 16 155/82 H 99 04/02/18 15:51 36.2 C L 85 17 137/68 H 99 04/02/18 13:30 88 16 139/60 H 98 04/02/18 12:16 36.7 C 86 18 140/57 H 100 - Physical Exam General Appearance: positive: No acute distress, Alert. negative: Lethargic Eyes Bilateral: positive: Normal inspection, PERRL, No lid inflammation, Conjunctivae nml ENT: positive: ENT inspection nml, Pharynx nml, No signs of dehydration. negative: Purulent nasal drainage, Pharyngeal erythema, Oral lesions Neck: positive: Nml inspection, Thyroid nml, No JVD, Trachea midline. negative : Thyromegaly, Lymphadenopathy (R), Lymphadenopathy (L), Stiff neck, Swelling/ bruising, Tracheal deviation Respiratory: positive: Chest non-tender, No respiratory distress, Rhonchi. negative: Wheezes, Rales Cardiovascular: positive: Regular rate & rhythm, No murmur, No gallop. negative : Irregularly irregular, Extrasystoles, Tachycardia, Bradycardia, Systolic murmur, Diastolic murmur Peripheral Pulses: positive: 2+ Abdomen: positive: Non-tender, No organomegaly, Nml bowel sounds, No distention. negative: Tenderness, Guarding, Rebound Back: positive: Nml inspection. negative: CVA tenderness (R), CVA tenderness (L ) Skin: positive: Color nml, No rash, Warm, Dry. negative: Cyanosis, Diaphoresis , Pallor Extremities: positive: Non-tender, Full ROM, Nml appearance. negative: Calf tenderness, Joint swelling, Lucho's sign/cords Neurologic/Psychiatric: positive: Oriented x3, Motor nml, Sensation nml, Mood/ affect nml, Weakness. negative: Sensory loss, Facial droop, Slurred/abnml speech, Depressed mood/affect Conclusion/Plan - Problem List (1) Pneumonia Conclusion/Plan: CT indicate pneumonia, pt also present chill, SOB treat with Zosyn adjust to renal function Levoquin culture blood culture sputum (2) Anemia Conclusion/Plan: it appear mainly secondary to chemotherapy transfusion of blood H&H (3) Thrombocytopenia Conclusion/Plan: it appear mainly secondary to chemotherapy hold blood thinner transfusion of Platelet continue lab monitor, support, closely monitor bleeding (5) Lung cancer Conclusion/Plan: follow up out-pt her oncologist support (6) Breast cancer Conclusion/Plan: follow up out-pt her oncologist support (7) CKD (chronic kidney disease) Conclusion/Plan: it appears worsening with chemotherapy. It is Stage 4 hydration and avoid nephrological toxin agent lab monitor (8) HTN (hypertension) Conclusion/Plan: stable, continue home meds vital monitor (9) History of COPD Conclusion/Plan: stable, continue home meds O2 NC PRN (10) Hypothyroidism Conclusion/Plan: stable, Check TSH (11) DVT prophylaxis Conclusion/Plan: SCD (12) Full code status Conclusion/Plan: pt request full code - Lab Results Fish Bones: 04/03/18 07:50 04/03/18 07:50 Core Measures - Anticipated LOS I expect patient to be DC'd or transferred within 96 hours.: Yes - DVT/VTE - Prophylaxis VTE/DVT Device ordered at admit?: Yes VTE/DVT Prophylaxis med ordered at admit?: No Not Ordered - Medical Reason: Contraindicated
[2018-04-02] MEDS ORDERED: levoFLOXacin 750 MG/150 ML 750 MG/150 ML BAG IV SCH (18:39)
[2018-04-02] MEDS ORDERED: levoFLOXacin 500 MG/100 ML 500 MG/100 ML BAG IV SCH (19:00)
[2018-04-02] MEDS: ACETAMINOPHEN 325 MG TABLET PO PRN (20:02)
[2018-04-02] MEDS: PIPERACILLIN/TAZOBACTAM 2.25 GM in SODIUM CHLORIDE 0.9% MINIBAG 100 ML IV SCH (20:16)
[2018-04-03] MEDS: PIPERACILLIN/TAZOBACTAM 2.25 GM in SODIUM CHLORIDE 0.9% MINIBAG 100 ML IV SCH ×4 (01:11→19:25)
[2018-04-03] MEDS: SODIUM CHLORIDE FLUSH 0.9% 10 ML SYRINGE IVP SCH ×3 (01:11→15:58)
[2018-04-03] MEDS: SODIUM CHLORIDE 0.9% 1,000 ML IV SCH ×2 (01:11→22:51)
[2018-04-03] MEDS: LEVOTHYROXINE 112 MCG TABLET PO SCH (06:49)
[2018-04-03 08:17] LABS: BASOPHILS % (AUTO) 0.5 %; EOSINOPHILS % (AUTO) 1.2 %; HGB - HEMOGLOBIN 8.5 g/dL (12.0-16.0); LYMPHOCYTES # (AUTO) 1.5 10^3/uL (1.5-3.5); MEAN CORPUSCULAR HEMOGLOBIN 31.9 pg (27.0-31.0); MEAN CORPUSCULAR HGB CONC 34.8 g/dL (32.0-36.0); MEAN CORPUSCULAR VOLUME 91.8 fL (81.0-99.0); MEAN PLATELET VOLUME 8.3 fL (7.9-10.8); MONOCYTES # (AUTO) 0.4 10^3/uL (0.0-1.0); MONOCYTES % (AUTO) 10.1 %; NEUTROPHILS # (AUTO) 1.6 10^3/uL (1.5-6.6); NEUTROPHILS % (AUTO) 45.2 %; PLT - PLATELET COUNT 81 10^3/uL (130-450); RED BLOOD COUNT 2.68 10^6/uL (4.20-5.40); RED CELL DISTRIBUTION WIDTH 15.6 % (12.0-15.0); WHITE BLOOD COUNT 3.5 x10^3/uL (4.8-10.8)
[2018-04-03 08:27] LABS: ALBUMIN 3.2 g/dL (3.2-5.5); BILIRUBIN,TOTAL 1.1 mg/dL (0.2-1.0); CALCIUM 8.4 mg/dL (8.5-10.3); CREATININE 2.3 mg/dL (0.4-1.0); MAGNESIUM 1.2 mg/dL (1.7-2.8); TOTAL PROTEIN 6.4 g/dL (6.7-8.2)
[2018-04-03] MEDS: POLYETHYLENE GLYCOL 3350 17 GM PACKET PO SCH (08:27)
[2018-04-03] MEDS: FAMOTIDINE 20 MG TABLET PO SCH (08:27)
[2018-04-03 08:31] LABS: HB2 TOTAL 8.9 g/dL; HEMOGLOBIN A1C 0.43 g/dL; HEMOGLOBIN A1C % 6.6 % (4.6-6.2)
[2018-04-03] MEDS ORDERED: MAGNESIUM SULFATE 2 GRAM 2 GM/50 ML BAG IV SCH ×2 (09:00→14:00)
[2018-04-03] MEDS ORDERED: IPRATROPIUM/ALBUTEROL 3 ML NEB INH PRN (11:00)
--- NOTE | 2018-04-03 14:23 | PROVIDER PROGRESS NOTE ---
Subjective - Prog Note Date Prog Note Date: 04/03/18 - Subjective Pt reports feeling: Improved Subjective: pt report she feel much better, breath better. No fever, chill, CP Current Medications - Current Medications Current Medications: Active Medications Acetaminophen (Tylenol) 650 mg PO Q4HR PRN PRN Reason: Pain 1 to 4 Last Admin: 04/02/18 20:02 Dose: 650 mg Albuterol/Ipratropium (Duoneb) 3 ml INH RTQ4H PRN PRN Reason: Wheezing Clonidine HCl (Catapres) 0.1 mg PO BID PRN PRN Reason: Hypertensive Emergency Famotidine (Pepcid) 20 mg PO DAILY [facility] Last Admin: 04/03/18 08:27 Dose: 20 mg Sodium Chloride (Normal Saline 0.9%) 1,000 mls @ 50 mls/hr IV .Q20H [facility] Last Admin: 04/03/18 01:11 Dose: 50 mls/hr Piperacillin Sod/Tazobactam (Sod 2.25 gm/ Sodium Chloride) 100 mls @ 200 mls/ hr IV Q6H [facility] Last Admin: 04/03/18 13:40 Dose: 200 mls/hr Levofloxacin (Levaquin 500 Mg/100 Ml) 500 mg in 100 mls @ 100 mls/hr IV Q48H [facility] Magnesium Sulfate (Magnesium Sulfate) 2 gm in 50 mls @ 50 mls/hr IV ONCE [facility] Stop: 04/03/18 15:00 Levothyroxine Sodium (Synthroid) 112 mcg PO QDAC [facility] Last Admin: 04/03/18 06:49 Dose: 112 mcg Lorazepam (Ativan) 0.5 mg PO Q8HR PRN PRN Reason: Nausea / Vomiting Ondansetron HCl (Zofran Inj) 4 mg IVP Q6HR PRN PRN Reason: Nausea / Vomiting Polyethylene Glycol (Miralax) 17 gm PO DAILY [facility] Last Admin: 04/03/18 08:27 Dose: 17 gm Sodium Chloride (Normal Saline Flush 0.9%) 10 ml IVP PRN PRN PRN Reason: NEEDED PER PROVIDER ORDERS Sodium Chloride (Normal Saline Flush 0.9%) 10 ml IVP 0100,0900,1700 [facility] Last Admin: 04/03/18 08:27 Dose: Not Given Zolpidem Tartrate (Ambien) 5 mg PO QPM PRN PRN Reason: Insomnia Aspirin [Adult Low Dose Aspirin EC] 81 mg PO DAILY 05/12/16 Levothyroxine [Synthroid] 112 mcg PO QDAC 05/12/16 Pantoprazole Sodium [Protonix] 40 mg PO QDAC 09/08/16 Anastrozole 1 mg PO DAILY 12/21/17 LORazepam [Ativan] 0.5 mg PO Q8HR PRN 03/22/18 Fluticasone/Salmeterol [Advair 500-50 Diskus] 1 puffs INH BID 04/02/18 Multivitamin [Theragran] 1 tab PO DAILY 04/02/18 [place]-3 Acid Ethyl Esters [Lovaza] 1 gm PO DAILY 04/02/18 Prochlorperazine Maleate 10 mg PO Q6H PRN 04/02/18 Objective - Vital Signs/Intake & Output Reviewed Vital Signs: Yes Vital Signs: Vital Signs x48h Temp Pulse Resp BP Pulse Ox 04/03/18 08:00 36.5 C 69 18 145/63 H 100 Intake & Output: Intake & Output 03/31/18 04/01/18 04/02/18 04/03/18 23:59 23:59 23:59 23:59 Intake Total 582 1470 Balance 582 1470 - Objective General Appearance: positive: No acute distress, Alert. negative: Lethargic Eyes Bilateral: positive: Normal inspection, PERRL, No lid inflammation, Conjunctivae nml ENT: positive: ENT inspection nml, Pharynx nml, No signs of dehydration. negative: Purulent nasal drainage, Pharyngeal erythema, Oral lesions Neck: positive: Nml inspection, Thyroid nml, No JVD, Trachea midline. negative : Thyromegaly, Lymphadenopathy (R), Lymphadenopathy (L), Stiff neck, Swelling/ bruising, Tracheal deviation Respiratory: positive: Chest non-tender, No respiratory distress, Other ( reduced lung sound at right lower lobe). negative: Wheezes, Rales Cardiovascular: positive: Regular rate & rhythm. negative: Irregularly irregular, Extrasystoles, Tachycardia, Bradycardia, Systolic murmur, Diastolic murmur Peripheral Pulses: 2+ Radial (R), 2+ Radial (L), 2+ Dorsalis pedis (R), 2+ Dorsalis pedis (L) Abdomen: positive: Non-tender, No organomegaly, Nml bowel sounds, No distention. negative: Tenderness, Guarding, Rebound Back: positive: Nml inspection. negative: CVA tenderness (R), CVA tenderness (L ) Skin: positive: Color nml, No rash, Warm, Dry. negative: Cyanosis, Diaphoresis , Pallor Extremities: positive: Non-tender, Full ROM, Nml appearance. negative: Calf tenderness, Joint swelling, Lucho's sign/cords Neurologic/Psychiatric: positive: Oriented x3, Motor nml, Sensation nml, Mood/ affect nml, Sensory loss. negative: Facial droop, Slurred/abnml speech, Depressed mood/affect - Lab Results Fish Bones: 04/03/18 07:50 04/03/18 07:50 Other Labs: Lab Results x24hrs 04/03/18 04/03/18 04/03/18 Range/Units 07:50 07:50 07:50 WBC (4.8-10.8) x10^3/uL RBC (4.20-5.40) 10^6/uL Hgb (12.0-16.0) g/dL Hct (37.0-47.0) % MCV (81.0-99.0) fL MCH (27.0-31.0) pg MCHC (32.0-36.0) g/dL RDW (12.0-15.0) % Plt Count (130-450) 10^3/uL MPV (7.9-10.8) fL Neut # (1.5-6.6) 10^3/uL Lymph # (1.5-3.5) 10^3/uL [place] # (0.0-1.0) 10^3/uL Eos # (0.0-0.7) 10^3/uL Baso # (0.0-0.1) 10^3/uL Absolute Nucleated RBC x10^3/uL Nucleated RBC % /100WBC Sodium 139 (135-145) mmol/L Potassium 4.4 (3.5-5.0) mmol/L Chloride 107 (101-111) mmol/L Carbon Dioxide 22 (21-32) mmol/L Anion Gap 10.0 (6-13) BUN 20 (6-20) mg/dL Creatinine 2.3 H (0.4-1.0) mg/dL Estimated GFR (MDRD) 21 L (>89) Glucose 88 (70-100) mg/dL Glycated Hemoglobin 6.6 H (4.6-6.2) % Estim Average Glucose 143 H (70-100) Calcium 8.4 L (8.5-10.3) mg/dL Magnesium 1.2 L (1.7-2.8) mg/dL Total Bilirubin 1.1 H (0.2-1.0) mg/dL AST 27 (10-42) IU/L ALT 17 (10-60) IU/L Alkaline Phosphatase 70 (42-121) IU/L Total Protein 6.4 L (6.7-8.2) g/dL Albumin 3.2 (3.2-5.5) g/dL Globulin 3.2 (2.1-4.2) g/dL Albumin/Globulin Ratio 1.0 (1.0-2.2) TSH 13.09 H (0.34-5.60) uIU/mL 04/03/18 Range/Units 07:50 WBC 3.5 L (4.8-10.8) x10^3/uL RBC 2.68 L (4.20-5.40) 10^6/uL Hgb 8.5 L (12.0-16.0) g/dL Hct 24.5 L (37.0-47.0) % MCV 91.8 (81.0-99.0) fL MCH 31.9 H (27.0-31.0) pg MCHC 34.8 (32.0-36.0) g/dL RDW 15.6 H (12.0-15.0) % Plt Count 81 L (130-450) 10^3/uL MPV 8.3 (7.9-10.8) fL Neut # 1.6 (1.5-6.6) 10^3/uL Lymph # 1.5 (1.5-3.5) 10^3/uL [place] # 0.4 (0.0-1.0) 10^3/uL Eos # 0.0 (0.0-0.7) 10^3/uL Baso # 0.0 (0.0-0.1) 10^3/uL Absolute Nucleated RBC 0.00 x10^3/uL Nucleated RBC % 0.0 /100WBC Sodium (135-145) mmol/L Potassium (3.5-5.0) mmol/L Chloride (101-111) mmol/L Carbon Dioxide (21-32) mmol/L Anion Gap (6-13) BUN (6-20) mg/dL Creatinine (0.4-1.0) mg/dL Estimated GFR (MDRD) (>89) Glucose (70-100) mg/dL Glycated Hemoglobin (4.6-6.2) % Estim Average Glucose (70-100) Calcium (8.5-10.3) mg/dL Magnesium (1.7-2.8) mg/dL Total Bilirubin (0.2-1.0) mg/dL AST (10-42) IU/L ALT (10-60) IU/L Alkaline Phosphatase (42-121) IU/L Total Protein (6.7-8.2) g/dL Albumin (3.2-5.5) g/dL Globulin (2.1-4.2) g/dL Albumin/Globulin Ratio (1.0-2.2) TSH (0.34-5.60) uIU/mL ABX Reporting Has patient been on IV antibiotics over the past 48 hours?: Yes Assessment/Plan - Problem List (1) Pneumonia Impression: Conclusion/Plan: pt report she feel much better than yesterday, breath better, 100% sats on room air continue antibiotics continue lab monitor, vital monitor follow up blood and culture culture CT indicate pneumonia, pt also present chill, SOB treat with Zosyn adjust to renal function Levoquin culture blood culture sputum (2) Anemia Conclusion/Plan: after transfusion, HGB 8.5, plt 81 continue lab monitor it appear mainly secondary to chemotherapy transfusion of blood H&H (3) Thrombocytopenia Conclusion/Plan: plt 81, continue monitor it appear mainly secondary to chemotherapy hold blood thinner transfusion of Platelet continue lab monitor, support, closely monitor bleeding (5) Lung cancer Conclusion/Plan: follow up out-pt her oncologist support (6) Breast cancer Conclusion/Plan: follow up out-pt her oncologist support (7) CKD (chronic kidney disease) Conclusion/Plan: stable, continue lab monitor it appears worsening with chemotherapy. It is Stage 4 hydration and avoid nephrological toxin agent lab monitor (8) HTN (hypertension) Conclusion/Plan: stable, continue home meds vital monitor (9) History of COPD Conclusion/Plan: stable stable, continue home meds O2 NC PRN (10) Hypothyroidism Conclusion/Plan: TSH high 13.09. will check T3/4, follow up stable, Check TSH (11) pulmonary HTN ECHO indicate RVSP 58 mmHG, discuss the result with pt, that can partially explain pt's SOB continue support, O2 NC supplement as needed
[2018-04-03 15:09] LABS: HGB - HEMOGLOBIN 8.5 g/dL (12.0-16.0)
[2018-04-04] MEDS: SODIUM CHLORIDE 0.9% 1,000 ML IV SCH (01:11)
[2018-04-04] MEDS: PIPERACILLIN/TAZOBACTAM 2.25 GM in SODIUM CHLORIDE 0.9% MINIBAG 100 ML IV SCH ×4 (01:11→18:58)
[2018-04-04] MEDS: SODIUM CHLORIDE FLUSH 0.9% 10 ML SYRINGE IVP SCH ×3 (01:12→19:46)
[2018-04-04] MEDS: LEVOTHYROXINE 112 MCG TABLET PO SCH (06:16)
[2018-04-04 06:20] LABS: BASOPHILS % (AUTO) 0.3 %; EOSINOPHILS # (AUTO) 0.1 10^3/uL (0.0-0.7); EOSINOPHILS % (AUTO) 2.5 %; LYMPHOCYTES # (AUTO) 1.7 10^3/uL (1.5-3.5); LYMPHOCYTES % (AUTO) 48.5 %; MEAN CORPUSCULAR HEMOGLOBIN 30.8 pg (27.0-31.0); MEAN CORPUSCULAR HGB CONC 33.3 g/dL (32.0-36.0); MEAN CORPUSCULAR VOLUME 92.7 fL (81.0-99.0); MEAN PLATELET VOLUME 7.5 fL (7.9-10.8); MONOCYTES # (AUTO) 0.5 10^3/uL (0.0-1.0); MONOCYTES % (AUTO) 14.7 %; NEUTROPHILS # (AUTO) 1.2 10^3/uL (1.5-6.6); PLT - PLATELET COUNT 81 10^3/uL (130-450); RED BLOOD COUNT 2.59 10^6/uL (4.20-5.40); RED CELL DISTRIBUTION WIDTH 15.7 % (12.0-15.0); WHITE BLOOD COUNT 3.6 x10^3/uL (4.8-10.8)
[2018-04-04 06:36] LABS: ALBUMIN 3.2 g/dL (3.2-5.5); BILIRUBIN,TOTAL 0.6 mg/dL (0.2-1.0); CALCIUM 8.3 mg/dL (8.5-10.3); CREATININE 2.3 mg/dL (0.4-1.0); TOTAL PROTEIN 6.3 g/dL (6.7-8.2)
[2018-04-04] MEDS: POLYETHYLENE GLYCOL 3350 17 GM PACKET PO SCH (10:16)
[2018-04-04] MEDS: FAMOTIDINE 20 MG TABLET PO SCH (10:28)
--- NOTE | 2018-04-04 12:02 | PROVIDER PROGRESS NOTE ---
Subjective - Prog Note Date Prog Note Date: 04/04/18 - Subjective Pt reports feeling: Improved Subjective: pt report she feel better daily, breathing is better. No acute complaint at this point. No fever, chill, chest pain, SOB, bloody vomiting. Current Medications - Current Medications Current Medications: Active Medications Acetaminophen (Tylenol) 650 mg PO Q4HR PRN PRN Reason: Pain 1 to 4 Last Admin: 04/02/18 20:02 Dose: 650 mg Albuterol/Ipratropium (Duoneb) 3 ml INH RTQ4H PRN PRN Reason: Wheezing Clonidine HCl (Catapres) 0.1 mg PO BID PRN PRN Reason: Hypertensive Emergency Famotidine (Pepcid) 20 mg PO DAILY [facility] Last Admin: 04/04/18 10:28 Dose: 20 mg Sodium Chloride (Normal Saline 0.9%) 1,000 mls @ 50 mls/hr IV .Q20H [facility] Last Infusion: 04/04/18 10:17 Dose: 50 mls/hr Piperacillin Sod/Tazobactam (Sod 2.25 gm/ Sodium Chloride) 100 mls @ 200 mls/ hr IV Q6H [facility] Last Admin: 04/04/18 06:16 Dose: 200 mls/hr Levofloxacin (Levaquin 500 Mg/100 Ml) 500 mg in 100 mls @ 100 mls/hr IV Q48H [facility] Levothyroxine Sodium (Synthroid) 112 mcg PO QDAC [facility] Last Admin: 04/04/18 06:16 Dose: 112 mcg Lorazepam (Ativan) 0.5 mg PO Q8HR PRN PRN Reason: Nausea / Vomiting Ondansetron HCl (Zofran Inj) 4 mg IVP Q6HR PRN PRN Reason: Nausea / Vomiting Sodium Chloride (Normal Saline Flush 0.9%) 10 ml IVP PRN PRN PRN Reason: NEEDED PER PROVIDER ORDERS Sodium Chloride (Normal Saline Flush 0.9%) 10 ml IVP 0100,0900,1700 [facility] Last Admin: 04/04/18 07:37 Dose: Not Given Zolpidem Tartrate (Ambien) 5 mg PO QPM PRN PRN Reason: Insomnia Aspirin [Adult Low Dose Aspirin EC] 81 mg PO DAILY 05/12/16 Levothyroxine [Synthroid] 112 mcg PO QDAC 05/12/16 Pantoprazole Sodium [Protonix] 40 mg PO QDAC 09/08/16 Anastrozole 1 mg PO DAILY 12/21/17 LORazepam [Ativan] 0.5 mg PO Q8HR PRN 03/22/18 Fluticasone/Salmeterol [Advair 500-50 Diskus] 1 puffs INH BID 04/02/18 Multivitamin [Theragran] 1 tab PO DAILY 04/02/18 [place]-3 Acid Ethyl Esters [Lovaza] 1 gm PO DAILY 04/02/18 Prochlorperazine Maleate 10 mg PO Q6H PRN 04/02/18 Objective - Vital Signs/Intake & Output Reviewed Vital Signs: Yes Vital Signs: Vital Signs x48h Temp Pulse Resp BP Pulse Ox 04/04/18 08:00 36.5 C 71 16 141/58 H 99 Intake & Output: Intake & Output 04/01/18 04/02/18 04/03/18 04/04/18 23:59 23:59 23:59 23:59 Intake Total 582 3270.000 708.333 Balance 582 3270.000 708.333 - Objective General Appearance: positive: No acute distress, Alert. negative: Lethargic Eyes Bilateral: positive: Normal inspection, PERRL, No lid inflammation, Conjunctivae nml ENT: positive: ENT inspection nml, Pharynx nml, No signs of dehydration. negative: Purulent nasal drainage, Pharyngeal erythema, Oral lesions Neck: positive: Nml inspection, Thyroid nml, No JVD, Trachea midline. negative : Thyromegaly, Lymphadenopathy (R), Lymphadenopathy (L), Stiff neck, Carotid bruit, Swelling/bruising, Tracheal deviation Respiratory: positive: Chest non-tender, No respiratory distress, Breath sounds nml. negative: Wheezes, Rales, Rhonchi Cardiovascular: positive: Regular rate & rhythm, No murmur, No gallop. negative : Irregularly irregular, Extrasystoles, Tachycardia, Bradycardia, Systolic murmur, Diastolic murmur Peripheral Pulses: 2+ Radial (R), 2+ Radial (L), 2+ Dorsalis pedis (R), 2+ Dorsalis pedis (L) Abdomen: positive: Non-tender, No organomegaly, Nml bowel sounds, No distention. negative: Tenderness, Guarding, Rebound Back: positive: Nml inspection. negative: CVA tenderness (R), CVA tenderness (L ) Skin: positive: Color nml, No rash, Warm, Dry. negative: Cyanosis, Diaphoresis , Pallor Extremities: positive: Non-tender, Full ROM, Nml appearance. negative: Calf tenderness, Joint swelling, Lucho's sign/cords Neurologic/Psychiatric: positive: Oriented x3, Sensation nml, Mood/affect nml, Weakness. negative: Sensory loss, Facial droop, Slurred/abnml speech, Depressed mood/affect - Lab Results Fish Bones: 04/04/18 06:13 04/04/18 06:13 Other Labs: Lab Results x24hrs 04/04/18 04/04/18 04/04/18 Range/Units 06:13 06:13 06:13 WBC (4.8-10.8) x10^3/uL RBC (4.20-5.40) 10^6/uL Hgb (12.0-16.0) g/dL Hct (37.0-47.0) % MCV (81.0-99.0) fL MCH (27.0-31.0) pg MCHC (32.0-36.0) g/dL RDW (12.0-15.0) % Plt Count (130-450) 10^3/uL MPV (7.9-10.8) fL Neut # (1.5-6.6) 10^3/uL Lymph # (1.5-3.5) 10^3/uL [place] # (0.0-1.0) 10^3/uL Eos # (0.0-0.7) 10^3/uL Baso # (0.0-0.1) 10^3/uL Absolute Nucleated RBC x10^3/uL Nucleated RBC % /100WBC Sodium 138 (135-145) mmol/L Potassium 4.1 (3.5-5.0) mmol/L Chloride 108 (101-111) mmol/L Carbon Dioxide 22 (21-32) mmol/L Anion Gap 8.0 (6-13) BUN 19 (6-20) mg/dL Creatinine 2.3 H (0.4-1.0) mg/dL Estimated GFR (MDRD) 21 L (>89) Glucose 86 (70-100) mg/dL Calcium 8.3 L (8.5-10.3) mg/dL Total Bilirubin 0.6 (0.2-1.0) mg/dL AST 26 (10-42) IU/L ALT 17 (10-60) IU/L Alkaline Phosphatase 68 (42-121) IU/L Total Protein 6.3 L (6.7-8.2) g/dL Albumin 3.2 (3.2-5.5) g/dL Globulin 3.1 (2.1-4.2) g/dL Albumin/Globulin Ratio 1.0 (1.0-2.2) Free T4 0.69 (0.58-1.64) ng/dL Free T3 pg/mL 2.62 (2.5-3.9) pg/mL 04/04/18 04/03/18 Range/Units 06:13 15:00 WBC 3.6 L (4.8-10.8) x10^3/uL RBC 2.59 L (4.20-5.40) 10^6/uL Hgb 8.0 L 8.5 L (12.0-16.0) g/dL Hct 24.0 L 24.6 L (37.0-47.0) % MCV 92.7 (81.0-99.0) fL MCH 30.8 (27.0-31.0) pg MCHC 33.3 (32.0-36.0) g/dL RDW 15.7 H (12.0-15.0) % Plt Count 81 L (130-450) 10^3/uL MPV 7.5 L (7.9-10.8) fL Neut # 1.2 L (1.5-6.6) 10^3/uL Lymph # 1.7 (1.5-3.5) 10^3/uL [place] # 0.5 (0.0-1.0) 10^3/uL Eos # 0.1 (0.0-0.7) 10^3/uL Baso # 0.0 (0.0-0.1) 10^3/uL Absolute Nucleated RBC 0.01 x10^3/uL Nucleated RBC % 0.2 /100WBC Sodium (135-145) mmol/L Potassium (3.5-5.0) mmol/L Chloride (101-111) mmol/L Carbon Dioxide (21-32) mmol/L Anion Gap (6-13) BUN (6-20) mg/dL Creatinine (0.4-1.0) mg/dL Estimated GFR (MDRD) (>89) Glucose (70-100) mg/dL Calcium (8.5-10.3) mg/dL Total Bilirubin (0.2-1.0) mg/dL AST (10-42) IU/L ALT (10-60) IU/L Alkaline Phosphatase (42-121) IU/L Total Protein (6.7-8.2) g/dL Albumin (3.2-5.5) g/dL Globulin (2.1-4.2) g/dL Albumin/Globulin Ratio (1.0-2.2) Free T4 (0.58-1.64) ng/dL Free T3 pg/mL (2.5-3.9) pg/mL ABX Reporting Has patient been on IV antibiotics over the past 48 hours?: Yes Assessment/Plan - Problem List (1) Pneumonia Impression: Impression: pt report her breath is better, 99% Sat on room air, no fever, chill continue antibiotics preliminary blood culture is negative continue lab and vital monitor pt report she feel much better than yesterday, breath better, 100% sats on room air continue antibiotics continue lab monitor, vital monitor follow up blood and culture culture CT indicate pneumonia, pt also present chill, SOB treat with Zosyn adjust to renal function Levoquin culture blood culture sputum (2) Anemia Conclusion/Plan: slight down HGB 8.0 from 8.5, continue H&H Plt is stable, it appear mainly secondary to chemotherapy, after stop the chemotherapy, expected HGB will be stable, after transfusion, HGB 8.5, plt 81 continue lab monitor it appear mainly secondary to chemotherapy transfusion of blood H&H (3) Thrombocytopenia Conclusion/Plan: stable, PLT plt 81, continue monitor it appear mainly secondary to chemotherapy hold blood thinner transfusion of Platelet continue lab monitor, support, closely monitor bleeding (5) Lung cancer Conclusion/Plan: follow up out-pt her oncologist support (6) Breast cancer Conclusion/Plan: follow up out-pt her oncologist support (7) CKD (chronic kidney disease) Conclusion/Plan: stable, continue lab monitor it appears worsening with chemotherapy. It is Stage 4 hydration and avoid nephrological toxin agent lab monitor (8) HTN (hypertension) Conclusion/Plan: stable, continue home meds vital monitor (9) History of COPD Conclusion/Plan: stable, room air at 99% sats stable stable, continue home meds O2 NC PRN (10) Hypothyroidism Conclusion/Plan: T4/3 are normal, follow up PCP after D/C TSH high 13.09. will check T3/4, follow up stable, Check TSH (11) pulmonary HTN ECHO indicate RVSP 58 mmHG, discuss the result with pt, that can partially explain pt's SOB continue support, O2 NC supplement as needed
--- NOTE | 2018-04-04 12:57 | Nuclear Medicine Report ---
EXAM: VENTILATION/PERFUSION SCAN (V/Q SCAN) EXAM DATE: 04/04/2018 11:18 AM. CLINICAL HISTORY: Elevated D-dimer and SOB. COMPARISON: Chest radiograph 04/02/2018. TECHNIQUE: Patient was administered 39 mCi of technetium 99m DTPA aerosol by inhalation and 8 standar d ventilation images of the lungs were obtained. Next, the patient was injected with 4.9 mCi of techn etium 99m MAA intravenously and 8 standard perfusion images of the lungs were obtained. FINDINGS: Perfusion images demonstrate mildly inhomogeneous perfusion to the lungs bilaterally without convinci ng segmental deficit. Ventilatory images demonstrate corresponding radiotracer distribution without c onvincing mismatch. There is moderate central airway deposition suggesting obstructive pulmonary phys iology. IMPRESSION: 1. No ventilation/perfusion mismatches to indicate pulmonary emboli. Low probability for acute pulmon deysi embolism. 2. Moderate central airway deposition suggesting obstructive pulmonary physiology. [facility] Referring Provider Line: [phone] SITE ID: [id number]
[2018-04-04 19:13] LABS: HGB - HEMOGLOBIN 8.4 g/dL (12.0-16.0)
[2018-04-04] MEDS ORDERED: levoFLOXacin 500 MG/100 ML 500 MG/100 ML BAG IV SCH (21:00)
[2018-04-05] MEDS: ACETAMINOPHEN 325 MG TABLET PO PRN (01:59)
[2018-04-05] MEDS: SODIUM CHLORIDE 0.9% 1,000 ML IV SCH ×4 (01:59→23:41)
[2018-04-05] MEDS: PIPERACILLIN/TAZOBACTAM 2.25 GM in SODIUM CHLORIDE 0.9% MINIBAG 100 ML IV SCH ×4 (02:03→20:06)
[2018-04-05] MEDS ORDERED: SODIUM CHLORIDE FLUSH 0.9% 10 ML SYRINGE IVP PRN (03:55)
[2018-04-05 05:50] LABS: BASOPHILS % (AUTO) 0.5 %; EOSINOPHILS # (AUTO) 0.1 10^3/uL (0.0-0.7); EOSINOPHILS % (AUTO) 2.9 %; HGB - HEMOGLOBIN 7.9 g/dL (12.0-16.0); LYMPHOCYTES # (AUTO) 1.6 10^3/uL (1.5-3.5); LYMPHOCYTES % (AUTO) 48.5 %; MEAN CORPUSCULAR HEMOGLOBIN 30.9 pg (27.0-31.0); MEAN CORPUSCULAR HGB CONC 32.6 g/dL (32.0-36.0); MEAN CORPUSCULAR VOLUME 94.6 fL (81.0-99.0); MEAN PLATELET VOLUME 8.4 fL (7.9-10.8); MONOCYTES # (AUTO) 0.7 10^3/uL (0.0-1.0); MONOCYTES % (AUTO) 19.8 %; NEUTROPHILS # (AUTO) 0.9 10^3/uL (1.5-6.6); NEUTROPHILS % (AUTO) 28.3 %; PLT - PLATELET COUNT 75 10^3/uL (130-450); RED BLOOD COUNT 2.55 10^6/uL (4.20-5.40); RED CELL DISTRIBUTION WIDTH 15.7 % (12.0-15.0); WHITE BLOOD COUNT 3.3 x10^3/uL (4.8-10.8)
[2018-04-05 06:03] LABS: ALBUMIN 3.1 g/dL (3.2-5.5); BILIRUBIN,TOTAL 0.6 mg/dL (0.2-1.0); CALCIUM 8.3 mg/dL (8.5-10.3); CREATININE 2.2 mg/dL (0.4-1.0); TOTAL PROTEIN 6.2 g/dL (6.7-8.2)
[2018-04-05] MEDS: LEVOTHYROXINE 112 MCG TABLET PO SCH (06:20)
[2018-04-05] MEDS: SODIUM CHLORIDE FLUSH 0.9% 10 ML SYRINGE IVP SCH ×4 (06:25→23:27)
[2018-04-05] MEDS: FAMOTIDINE 20 MG TABLET PO SCH (09:54)
[2018-04-05] MEDS ORDERED: ZOLPIDEM 5 MG TABLET PO PRN (13:27)
[2018-04-05] MEDS ORDERED: ONDANSETRON 4 MG/2 ML VIAL IVP PRN (13:29)
[2018-04-05] MEDS ORDERED: LORazepam 0.5 MG TABLET PO PRN (13:29)
[2018-04-05] MEDS ORDERED: ACETAMINOPHEN 325 MG TABLET PO PRN (13:29)
[2018-04-05] MEDS ORDERED: cloNIDine 0.1 MG TABLET PO PRN (13:29)
[2018-04-05] MEDS ORDERED: IPRATROPIUM/ALBUTEROL 3 ML NEB INH PRN (15:11)
--- NOTE | 2018-04-05 15:25 | PROVIDER PROGRESS NOTE ---
Subjective - Prog Note Date Prog Note Date: 04/05/18 Prog Note Time: 15:25 - Subjective Pt reports feeling: Worse Subjective: The patient admits to increased efforts to take a deep breath and overall un- improved condition since yesterday. She denies chest pain induced by activity, worsening SOB, N/V or a new cough. She states that her appetite is not as good today. Current Medications - Current Medications Current Medications: Active Medications Acetaminophen (Tylenol) 650 mg PO Q4HR PRN PRN Reason: Pain 1 to 4 Albuterol/Ipratropium (Duoneb) 3 ml INH Q4HR PRN PRN Reason: Wheezing Albuterol/Ipratropium (Duoneb) 3 ml INH RTTID [facility] Anastrozole (Anastrozole) 1 mg PO DAILY [facility] Aspirin (Ecotrin) 81 mg PO DAILY [facility] Budesonide (Pulmicort) 0.5 mg INH RTBID [facility] Clonidine HCl (Catapres) 0.1 mg PO BID PRN PRN Reason: Hypertensive Emergency Heparin Sodium (Beef Lung) () 30 - 50 unit IVP PRN PRN PRN Reason: Central Line Protocol (<24 hr) Sodium Chloride (Normal Saline 0.9%) 1,000 mls @ 50 mls/hr IV .Q20H [facility] Last Infusion: 04/05/18 14:40 Dose: 50 mls/hr Piperacillin Sod/Tazobactam (Sod 2.25 gm/ Sodium Chloride) 100 mls @ 200 mls/ hr IV Q6H [facility] Last Infusion: 04/05/18 14:57 Dose: Infused Vancomycin HCl 1.5 gm/ Sodium (Chloride) 500 mls @ 250 mls/hr IV 1600 [facility] Last Admin: 04/05/18 17:32 Dose: 250 mls/hr Fluconazole (Diflucan 200 Mg/100 Ml) 100 mls @ 50 mls/hr IV DAILY [facility] PRN Reason: Per Protocol Lactobacillus Rhamnosus (Culturelle) 1 cap PO BID [facility] Lorazepam (Ativan) 0.5 mg PO Q8HR PRN PRN Reason: Nausea / Vomiting Magnesium Oxide (Mag Ox) 400 mg PO BID [facility] Last Admin: 04/05/18 17:31 Dose: 400 mg Ondansetron HCl (Zofran Inj) 4 mg IVP Q6HR PRN PRN Reason: Nausea / Vomiting Sodium Chloride (Normal Saline Flush 0.9%) 10 ml IVP PRN PRN PRN Reason: NEEDED PER PROVIDER ORDERS Sodium Chloride (Normal Saline Flush 0.9%) 10 ml IVP 0100,0900,1700 [facility] Sodium Chloride (Normal Saline Flush 0.9%) 20 ml IVP PRN PRN PRN Reason: After Blood Draw Zolpidem Tartrate (Ambien) 5 mg PO QPM PRN PRN Reason: Insomnia Aspirin [Adult Low Dose Aspirin EC] 81 mg PO DAILY 05/12/16 Levothyroxine [Synthroid] 112 mcg PO QDAC 05/12/16 Pantoprazole Sodium [Protonix] 40 mg PO QDAC 09/08/16 Anastrozole 1 mg PO DAILY 12/21/17 LORazepam [Ativan] 0.5 mg PO Q8HR PRN 03/22/18 Fluticasone/Salmeterol [Advair 500-50 Diskus] 1 puffs INH BID 04/02/18 Multivitamin [Theragran] 1 tab PO DAILY 04/02/18 [place]-3 Acid Ethyl Esters [Lovaza] 1 gm PO DAILY 04/02/18 Prochlorperazine Maleate 10 mg PO Q6H PRN 04/02/18 Objective - Vital Signs/Intake & Output Reviewed Vital Signs: Yes Vital Signs: Vital Signs x48h Temp Pulse Pulse Resp BP Pulse Ox 04/05/18 09:20 74 15 04/05/18 07:44 36.6 C 71 16 148/71 H 98 Intake & Output: Intake & Output 04/02/18 04/03/18 04/04/18 04/05/18 23:59 23:59 23:59 23:59 Intake Total 582 3270.000 3220.000 1281.000 Balance 582 3270.000 3220.000 1281.000 - Objective General Appearance: positive: No acute distress, Alert Eyes Bilateral: positive: Normal inspection, PERRL Eyes: OU Conjunctivae pale ENT: positive: ENT inspection nml, No signs of dehydration, Pharyngeal erythema , Dry mucous membranes, Other (pale appearance to oral mucosa.) Neck: positive: Nml inspection, Thyroid nml, No JVD, Trachea midline Respiratory: positive: Chest non-tender, No respiratory distress, Other ( scattered crackles to bilateral low lobes.) Cardiovascular: positive: Regular rate & rhythm, No gallop, Systolic murmur, Decreased pulse(s) Peripheral Pulses: 1+ Radial (R), 1+ Radial (L) Abdomen: positive: Non-tender, Nml bowel sounds, Other (rounded, soft) Back: positive: Nml inspection Skin: positive: No rash, Warm, Dry, Pallor Extremities: positive: Non-tender, Nml appearance, Pedal edema (BLE, equal dependent.) Neurologic/Psychiatric: positive: Oriented x3, CN's nml (2-12), Motor nml, Sensation nml, Weakness, Depressed mood/affect Reflexes: Bicep (R): 2+, Bicep (L): 2+ - Lab Results Fish Bones: 04/05/18 05:25 04/05/18 05:25 Other Labs: Lab Results x24hrs 04/05/18 04/05/18 04/04/18 Range/Units 05:25 05:25 19:08 WBC 3.3 L (4.8-10.8) x10^3/uL RBC 2.55 L (4.20-5.40) 10^6/uL Hgb 7.9 L 8.4 L (12.0-16.0) g/dL Hct 24.2 L 25.5 L (37.0-47.0) % MCV 94.6 (81.0-99.0) fL MCH 30.9 (27.0-31.0) pg MCHC 32.6 (32.0-36.0) g/dL RDW 15.7 H (12.0-15.0) % Plt Count 75 L (130-450) 10^3/uL MPV 8.4 (7.9-10.8) fL Neut # 0.9 L (1.5-6.6) 10^3/uL Lymph # 1.6 (1.5-3.5) 10^3/uL [place] # 0.7 (0.0-1.0) 10^3/uL Eos # 0.1 (0.0-0.7) 10^3/uL Baso # 0.0 (0.0-0.1) 10^3/uL Absolute Nucleated RBC 0.01 x10^3/uL Nucleated RBC % 0.4 /100WBC Sodium 139 (135-145) mmol/L Potassium 4.2 (3.5-5.0) mmol/L Chloride 109 (101-111) mmol/L Carbon Dioxide 20 L (21-32) mmol/L Anion Gap 10.0 (6-13) BUN 17 (6-20) mg/dL Creatinine 2.2 H (0.4-1.0) mg/dL Estimated GFR (MDRD) 22 L (>89) Glucose 91 (70-100) mg/dL Calcium 8.3 L (8.5-10.3) mg/dL Total Bilirubin 0.6 (0.2-1.0) mg/dL AST 22 (10-42) IU/L ALT 16 (10-60) IU/L Alkaline Phosphatase 69 (42-121) IU/L Total Protein 6.2 L (6.7-8.2) g/dL Albumin 3.1 L (3.2-5.5) g/dL Globulin 3.1 (2.1-4.2) g/dL Albumin/Globulin Ratio 1.0 (1.0-2.2) - Diagnostic Imaging Diagnostic Imaging Results: positive: Final report reviewed Diagnostic Imaging Comments: EXAM: CHEST RADIOGRAPHY EXAM DATE: 04/02/2018 03:30 PM. CLINICAL HISTORY: Hemoptysis. COMPARISON: 01/24/2018. TECHNIQUE: 2 views. FINDINGS: Lungs/Pleura: There is increased opacity within the right lung base. The left lung is grossly clear. No evidence of pneumothorax. Mediastinum: There is cardiomegaly. Left Port-A-Cath is in place. Patient has undergone median sternotomy. Other: None. IMPRESSION: 1. There is opacity within the right lower lung which likely represents airspace disease and complex effusion/pleural thickening. 2. Lungs are otherwise clear. 3. There is no evidence of pneumothorax. 4. There is cardiomegaly. EXAM: CT CHEST EXAM DATE: 04/02/2018 04:21 PM. CLINICAL HISTORY: Hemoptysis. COMPARISONS: 01/19/2015. TECHNIQUE: Routine helical CT imaging was performed through the chest. IV contrast: None. Reconstructions: Coronal and sagittal. In accordance with CT protocol optimization, one or more of the following dose reduction techniques were utilized for this exam: automated exposure control, adjustment of mA and/or KV based on patient size, or use of iterative reconstructive technique. FINDINGS: Lungs/Pleura: No pleural effusion. Postsurgical changes in the right thorax with probable resection of the right lower lobe. Extensive ground glass throughout the right lung, favored to represent infection. Alveolar hemorrhage may also be a consideration given provided clinical history of hemoptysis. This should be followed to resolution to exclude neoplastic causes of ground glass opacification such as with diffuse bronchioloalveolar carcinoma. The left lung is clear. Mediastinum: Postsurgical changes from median sternotomy. Left-sided chest port with tip in the superior third of the SVC and oriented laterally. Mitral valve prosthesis. No pericardial effusion. Bones: Postsurgical changes from median sternotomy. Visualized unenhanced upper Abdomen: Status post cholecystectomy. Otherwise unremarkable. Other: None. IMPRESSION: Extensive groundglass opacification throughout the right lung, favor infection, see comment. EXAM: VENTILATION/PERFUSION SCAN (V/Q SCAN) EXAM DATE: 04/04/2018 11:18 AM. CLINICAL HISTORY: Elevated D-dimer and SOB. COMPARISON: Chest radiograph 04/02/2018. TECHNIQUE: Patient was administered 39 mCi of technetium 99m DTPA aerosol by inhalation and 8 standard ventilation images of the lungs were obtained. Next, the patient was injected with 4.9 mCi of technetium 99m MAA intravenously and 8 standard perfusion images of the lungs were obtained. FINDINGS: Perfusion images demonstrate mildly inhomogeneous perfusion to the lungs bilaterally without convincing segmental deficit. Ventilatory images demonstrate corresponding radiotracer distribution without convincing mismatch. There is moderate central airway deposition suggesting obstructive pulmonary physiology. IMPRESSION: 1. No ventilation/perfusion mismatches to indicate pulmonary emboli. Low probability for acute pulmonary embolism. 2. Moderate central airway deposition suggesting obstructive pulmonary physiology. ABX Reporting Has patient been on IV antibiotics over the past 48 hours?: Yes Assessment/Plan - Problem List (1) Anemia Impression: The patient was found to have a very low H/H upon presentation to the ED back on 04/02/18 of 6.5/19.5, which she was given 2 units of PRBCs. Post transfusion levels were improved to 8.5/24.5. Today, she is stable at 7.9/24.2. Her internal oral mucosa appear pale, and she admits to ongoing moments of SOB with exertion. Plan: Continue to monitor CBC, vital signs and watch for active bleeding. 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 She states that her left breast cancer is considered stable. She is prescribed Anastrazole PO by oncology, who recommends a continuation of this. After meeting with her this evening , he is very reluctant to allow this and wishes that we would HOLD this for now. Plan: Continue to monitor, and plan to meet with oncology tomorrow. Qualifiers: Laterality: left (3) HTN (hypertension) Impression: The patient is post mitral valve repair (open) and has a known history of HTN. She and her admit to using ARBs and beta blockers at home. Blood pressure today was 153/74. Plan: continue to monitor vital signs. (4) Pneumonia Impression: The patient was found to have a right lower lobe pneumonia that was confirmed by a chest CT upon admission. She has a known history of lung CA and is under the care of Elba White, oncology and is nearly complete with her latest 16-week treatment course. All treatment is on hold since she is now being treated for PNA. The patient was slowly improving since admission and was prescribed Zosyn and Levofloxicin. Yesterday, her overall condition began to dwindle and she complained of ongoing SOB with any activity, slight chest pain that occurred after coughing and a loss of appetite today. Antibiotics were changed; Vancomycin added per pharmacy, Levo IV stopped. Anti-fungal started as per neutropenic guidelines in the setting of acute PNA. She was also started on scheduled nebs, respiratory care and scheduled LABA via nebulizer. Plan: Continue to monitor signs of worsening, continue treatment for PNA, daily labs. Qualifiers: Laterality: right Lung location: lower lobe of lung (5) Thrombocytopenia Impression: The patient has low platelets chronically and today her count was 75. In the ED upon presentation, she received 1 unit of platelets as she was compromised by having acute PNA. This is likely caused by her recent chemo treatments. Plan: Continue to monitor daily labs and transfuse platelets for a level of 10 or less. (6) Pulmonary HTN Impression: An echocardiogram was completed on 04/02/18 and showed an elevated RVSP at rest of 58mmHg. The patient is noted to have chronic increased abdominal girth. Plan: Continue treatment of this pneumonia by using nebs, IV antibiotics, steroids, and expectorants.
[2018-04-05] MEDS ORDERED: FLUCONAZOLE 200 MG/100 ML 50 ML IV SCH (16:00)
[2018-04-05] MEDS ORDERED: VANCOMYCIN PER PHARMACY 100 GM in SODIUM CHLORIDE 0.9% 250 ML IV SCH (16:00)
[2018-04-05] MEDS: MAGNESIUM OXIDE 400 MG TABLET PO SCH (17:31)
[2018-04-05] MEDS: VANCOMYCIN INJ 1.5 GM in SODIUM CHLORIDE 0.9% 500 ML IV SCH (17:32)
[2018-04-05] MEDS ORDERED: FLUCONAZOLE 200 MG/100 ML 100 ML IV SCH (18:04)
[2018-04-05] MEDS: LACTOBACILLUS RHAMNOSUS GG CAPSULE PO SCH ×2 (18:53→18:55)
[2018-04-05] MEDS: IPRATROPIUM/ALBUTEROL 3 ML NEB INH SCH (20:25)
[2018-04-05] MEDS: BUDESONIDE 0.5 MG/2 ML NEB INH SCH ×2 (20:25→20:28)
[2018-04-06] MEDS: PIPERACILLIN/TAZOBACTAM 2.25 GM in SODIUM CHLORIDE 0.9% MINIBAG 100 ML IV SCH ×4 (02:06→21:01)
[2018-04-06 06:54] LABS: BASOPHILS % (AUTO) 0.5 %; EOSINOPHILS # (AUTO) 0.1 10^3/uL (0.0-0.7); EOSINOPHILS % (AUTO) 3.1 %; HGB - HEMOGLOBIN 8.6 g/dL (12.0-16.0); LYMPHOCYTES # (AUTO) 1.9 10^3/uL (1.5-3.5); LYMPHOCYTES % (AUTO) 54.8 %; MEAN CORPUSCULAR HEMOGLOBIN 30.6 pg (27.0-31.0); MEAN CORPUSCULAR HGB CONC 32.4 g/dL (32.0-36.0); MEAN CORPUSCULAR VOLUME 94.4 fL (81.0-99.0); MEAN PLATELET VOLUME 8.6 fL (7.9-10.8); MONOCYTES # (AUTO) 0.8 10^3/uL (0.0-1.0); MONOCYTES % (AUTO) 22.5 %; NEUTROPHILS % (AUTO) 19.1 %; PLT - PLATELET COUNT 83 10^3/uL (130-450); RED BLOOD COUNT 2.81 10^6/uL (4.20-5.40); RED CELL DISTRIBUTION WIDTH 15.6 % (12.0-15.0); WHITE BLOOD COUNT 3.4 x10^3/uL (4.8-10.8)
[2018-04-06 06:59] LABS: NEUTROPHILS # (AUTO) 0.6 10^3/uL (1.5-6.6)
[2018-04-06 07:30] LABS: ALBUMIN 3.3 g/dL (3.2-5.5); ALBUMIN/GLOBULIN RATIO 0.9 (1.0-2.2); BILIRUBIN,TOTAL 0.5 mg/dL (0.2-1.0); CALCIUM 8.5 mg/dL (8.5-10.3); CREATININE 2.1 mg/dL (0.4-1.0); MAGNESIUM 1.4 mg/dL (1.7-2.8); TOTAL PROTEIN 6.8 g/dL (6.7-8.2)
[2018-04-06] MEDS: IPRATROPIUM/ALBUTEROL 3 ML NEB INH SCH ×3 (07:43→19:28)
[2018-04-06] MEDS: BUDESONIDE 0.5 MG/2 ML NEB INH SCH ×2 (07:43→19:28)
[2018-04-06] MEDS: SODIUM CHLORIDE FLUSH 0.9% 10 ML SYRINGE IVP SCH ×2 (07:49→18:16)
[2018-04-06] MEDS ORDERED: ANASTROZOLE 1 MG TABLET PO SCH (09:00)
[2018-04-06] MEDS ORDERED: MAGNESIUM SULFATE 2 GRAM 2 GM/50 ML BAG IV ONE (09:15)
[2018-04-06] MEDS: MAGNESIUM OXIDE 400 MG TABLET PO SCH ×2 (10:27→21:14)
[2018-04-06] MEDS: LACTOBACILLUS RHAMNOSUS GG CAPSULE PO SCH ×2 (10:27→21:14)
[2018-04-06] MEDS: ASPIRIN EC 81 MG TABLET PO SCH (10:27)
[2018-04-06] MEDS ORDERED: BENZOCAINE/MENTHOL LOZENGE MM PRN (10:31)
--- NOTE | 2018-04-06 12:11 | PROVIDER PROGRESS NOTE ---
Subjective - Prog Note Date Prog Note Date: 04/06/18 Prog Note Time: 12:09 - Subjective Pt reports feeling: Improved Subjective: Meena feels much improved since yesterday and believes that she may be able to go home in the morning. She denies SOB, chest pain, N/V or a new cough. Objective - Vital Signs/Intake & Output Reviewed Vital Signs: Yes Vital Signs: Vital Signs x48h Temp Pulse Pulse Resp BP Pulse Ox 04/06/18 09:19 36.5 C 85 20 148/56 H 99 04/06/18 07:43 82 16 Intake & Output: Intake & Output 04/03/18 04/04/18 04/05/18 04/06/18 23:59 23:59 23:59 23:59 Intake Total 3270.000 3220.000 2846.833 1236.667 Balance 3270.000 3220.000 2846.833 1236.667 - Objective General Appearance: positive: No acute distress, Alert Eyes Bilateral: positive: Normal inspection, PERRL, No scleral icterus Eyes: OU Conjunctivae pale ENT: positive: ENT inspection nml, Pharynx nml, Pharyngeal erythema, Dry mucous membranes Neck: positive: Nml inspection, Thyroid nml, No JVD, Trachea midline, Lymphadenopathy (R), Lymphadenopathy (L) Respiratory: positive: Chest non-tender, No respiratory distress, Other ( diminished.) Cardiovascular: positive: Regular rate & rhythm, Systolic murmur, Decreased pulse(s) Peripheral Pulses: 2+ Radial (R), 2+ Radial (L) Abdomen: positive: Non-tender, Nml bowel sounds Back: positive: Nml inspection Skin: positive: No rash, Warm, Dry, Pallor Extremities: positive: Non-tender, Full ROM, Pedal edema (mild, dependent BLE) Neurologic/Psychiatric: positive: Oriented x3, CN's nml (2-12), Motor nml, Sensation nml, Depressed mood/affect (mild STM loss) Reflexes: Bicep (R): 2+, Bicep (L): 2+ - Lab Results Fish Bones: 04/07/18 05:37 04/07/18 05:37 Other Labs: Lab Results x24hrs 04/06/18 04/06/18 Range/Units 05:56 05:56 WBC 3.4 L (4.8-10.8) x10^3/uL RBC 2.81 L (4.20-5.40) 10^6/uL Hgb 8.6 L (12.0-16.0) g/dL Hct 26.5 L (37.0-47.0) % MCV 94.4 (81.0-99.0) fL MCH 30.6 (27.0-31.0) pg MCHC 32.4 (32.0-36.0) g/dL RDW 15.6 H (12.0-15.0) % Plt Count 83 L (130-450) 10^3/uL MPV 8.6 (7.9-10.8) fL Neut # 0.6 L (1.5-6.6) 10^3/uL Lymph # 1.9 (1.5-3.5) 10^3/uL [place] # 0.8 (0.0-1.0) 10^3/uL Eos # 0.1 (0.0-0.7) 10^3/uL Baso # 0.0 (0.0-0.1) 10^3/uL Absolute Nucleated RBC 0.01 x10^3/uL Nucleated RBC % 0.2 /100WBC Sodium 141 (135-145) mmol/L Potassium 4.1 (3.5-5.0) mmol/L Chloride 112 H (101-111) mmol/L Carbon Dioxide 20 L (21-32) mmol/L Anion Gap 9.0 (6-13) BUN 15 (6-20) mg/dL Creatinine 2.1 H (0.4-1.0) mg/dL Estimated GFR (MDRD) 23 L (>89) Glucose 90 (70-100) mg/dL Calcium 8.5 (8.5-10.3) mg/dL Magnesium 1.4 L (1.7-2.8) mg/dL Total Bilirubin 0.5 (0.2-1.0) mg/dL AST 31 (10-42) IU/L ALT 18 (10-60) IU/L Alkaline Phosphatase 74 (42-121) IU/L Total Protein 6.8 (6.7-8.2) g/dL Albumin 3.3 (3.2-5.5) g/dL Globulin 3.5 (2.1-4.2) g/dL Albumin/Globulin Ratio 0.9 L (1.0-2.2) - Diagnostic Imaging Diagnostic Imaging Results: positive: Final report reviewed ABX Reporting Has patient been on IV antibiotics over the past 48 hours?: Yes Assessment/Plan - Problem List (1) Pneumonia Impression: The patient was found to have a right lower lobe pneumonia that was confirmed by a chest CT upon admission. She has a known history of lung CA and is under the care of Elba White, oncology and is nearly complete with her latest 16-week treatment course. The patient's lung sounds are improved and overall condition. Anti-fungal, and dual antibiotic coverage seem to be serving her well. She is also getting scheduled nebs, respiratory care and scheduled LABA via nebulizer. Plan: Continue to monitor signs of worsening, continue treatment for PNA, daily labs. The patient has had an extended stay due to her complexity of this pneumonia, which required a change in her IV treatment. She is expected to be discharged by tomorrow. Qualifiers: Laterality: right Lung location: lower lobe of lung (2) Anemia Impression: The patient was found to have a very low H/H upon presentation to the ED back on 04/02/18 of 6.5/19.5, which she was given 2 units of PRBCs. Post transfusion levels were improved to 8.5/24.5. Today, H/H was improved at 8.6/26.5. Her internal oral mucosa appear pale, and she admits to ongoing moments of SOB with exertion. Plan: Continue to monitor CBC, vital signs and watch for active bleeding. 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 Dr. White is aware of this admission and her chemo is on hold until after full PNA treatment. Plan: Continue to monitor respiratory status. (4) Thrombocytopenia Impression: The patient has low platelets chronically and today her count was improved from yesterday at 83. In the ED upon presentation, she received 1 unit of platelets as she was compromised by having acute PNA. This is likely caused by her recent chemo treatments. Plan: Continue to monitor daily labs and transfuse platelets for a level of 10 or less. (5) Breast cancer Impression: The patient denies symptoms and has not required any invasive treatment so far. She states that her left breast cancer is considered stable. She is prescribed Anastrazole PO by oncology, who recommends a continuation of this. This continues to be on HOLD this for now as per family and patient request. Plan: Continue to monitor. Qualifiers: Laterality: left (6) Pulmonary HTN Impression: An echocardiogram was completed on 04/02/18 and showed an elevated RVSP at rest of 58mmHg. The patient is noted to have chronic increased abdominal girth. Plan: Continue treatment of this pneumonia by using nebs, IV antibiotics, steroids, and expectorants. (7) HTN (hypertension) Impression: The patient is post mitral valve repair (open) and has a known history of HTN. She and her admit to using ARBs and beta blockers at home. Blood pressure today was 148/64. Plan: continue to monitor vital signs. Qualifiers: Hypertension type: essential hypertension Qualified Code(s): I10 - Essential (primary) hypertension
[2018-04-06 16:47] LABS: VANCOMYCIN,TROUGH 13.6 ug/mL (5.0-15.0)
[2018-04-06] MEDS: VANCOMYCIN INJ 1.5 GM in SODIUM CHLORIDE 0.9% 500 ML IV SCH (18:06)
[2018-04-06] MEDS: guaiFENesin 600 MG TABLET PO SCH ×2 (18:21→21:14)
[2018-04-06] MEDS: SODIUM CHLORIDE 0.65% NASAL SPRAY NAS SCH ×2 (18:38→21:16)
[2018-04-06] MEDS: FLUCONAZOLE 200 MG/100 ML 100 ML IV SCH (18:39)
[2018-04-06] MEDS ORDERED: levoFLOXacin 500 MG/100 ML 500 MG/100 ML BAG IV SCH (21:00)
[2018-04-07] MEDS: SODIUM CHLORIDE FLUSH 0.9% 10 ML SYRINGE IVP SCH ×3 (00:56→16:02)
[2018-04-07] MEDS: PIPERACILLIN/TAZOBACTAM 2.25 GM in SODIUM CHLORIDE 0.9% MINIBAG 100 ML IV SCH ×4 (02:03→21:07)
[2018-04-07] MEDS: SODIUM CHLORIDE 0.65% NASAL SPRAY NAS SCH ×3 (06:06→23:29)
[2018-04-07 06:18] LABS: ALBUMIN 3.1 g/dL (3.2-5.5); BILIRUBIN,TOTAL 0.7 mg/dL (0.2-1.0); CALCIUM 8.4 mg/dL (8.5-10.3); CREATININE 2.1 mg/dL (0.4-1.0); MAGNESIUM 1.8 mg/dL (1.7-2.8); TOTAL PROTEIN 6.2 g/dL (6.7-8.2)
[2018-04-07 06:25] LABS: BASOPHILS % (AUTO) 0.3 %; EOSINOPHILS % (AUTO) 4.5 %; HGB - HEMOGLOBIN 7.8 g/dL (12.0-16.0); LYMPHOCYTES % (AUTO) 48.6 %; MEAN CORPUSCULAR HEMOGLOBIN 31.1 pg (27.0-31.0); MEAN CORPUSCULAR HGB CONC 32.9 g/dL (32.0-36.0); MEAN CORPUSCULAR VOLUME 94.6 fL (81.0-99.0); MEAN PLATELET VOLUME 7.9 fL (7.9-10.8); MONOCYTES % (AUTO) 31.1 %; NEUTROPHILS % (AUTO) 15.5 %; PLT - PLATELET COUNT 80 10^3/uL (130-450); RED BLOOD COUNT 2.51 10^6/uL (4.20-5.40); RED CELL DISTRIBUTION WIDTH 15.6 % (12.0-15.0); WHITE BLOOD COUNT 3.2 x10^3/uL (4.8-10.8)
[2018-04-07 07:05] LABS: ABNORMAL LYMPHS % (MANUAL) 0 %
[2018-04-07 07:06] LABS: BAND NEUTROPHILS % (MANUAL) 1 %; DIFFERENTIAL COMMENT MANUAL DIFFERENTIAL; EOSINOPHILS # (MANUAL) 0.1 10^3/uL (0-0.7); LYMPHOCYTES # (MANUAL) 2.1 10^3/uL (1.5-3.5); LYMPHOCYTES % (MANUAL) 66 %; MONOCYTES # (MANUAL) 0.3 10^3/uL (0.0-1.0); NEUTROPHILS # (MANUAL) 0.7 10^3/uL (1.5-6.6); NEUTROPHILS % (MANUAL) 22 %; PLATELET ESTIMATE, MANUAL DECREASED (<130,000) (NORMAL); RBC MORPHOLOGY (MULTIPLE) NORMAL APPEARANCE (NORMAL)
[2018-04-07] MEDS: BUDESONIDE 0.5 MG/2 ML NEB INH SCH ×2 (07:43→18:10)
[2018-04-07] MEDS: IPRATROPIUM/ALBUTEROL 3 ML NEB INH SCH ×3 (07:44→18:10)
[2018-04-07] MEDS: SODIUM CHLORIDE 0.9% 1,000 ML IV SCH (08:52)
[2018-04-07] MEDS: ASPIRIN EC 81 MG TABLET PO SCH (08:52)
[2018-04-07] MEDS: guaiFENesin 600 MG TABLET PO SCH ×2 (08:52→20:46)
[2018-04-07] MEDS: MAGNESIUM OXIDE 400 MG TABLET PO SCH ×2 (08:53→20:45)
[2018-04-07] MEDS: LACTOBACILLUS RHAMNOSUS GG CAPSULE PO SCH ×2 (08:53→20:45)
[2018-04-07] MEDS ORDERED: VANCOMYCIN 1 GM VIAL ONE (16:15)
[2018-04-07] MEDS: VANCOMYCIN INJ 1.5 GM in SODIUM CHLORIDE 0.9% 500 ML IV SCH (16:17)
--- NOTE | 2018-04-07 17:43 | PROVIDER PROGRESS NOTE ---
Subjective - Prog Note Date Prog Note Date: 04/07/18 Prog Note Time: 10:00 - Subjective Pt reports feeling: No change Subjective: Although the patient was improved yesterday, today she has increased activity intolerance and becomes easily winded with movement into the bathroom. She denies chest pain, tightness, N/V, or an increased cough or wheezing. I will add a one time dose of oral Prednisone and order for 1 unit of PRBCs to be transfused. Current Medications - Current Medications Current Medications: Active Medications Acetaminophen (Tylenol) 650 mg PO Q4HR PRN PRN Reason: Pain 1 to 4 Albuterol/Ipratropium (Duoneb) 3 ml INH Q4HR PRN PRN Reason: Wheezing Albuterol/Ipratropium (Duoneb) 3 ml INH RTTID [facility] Last Admin: 04/07/18 18:10 Dose: 3 ml Aspirin (Ecotrin) 81 mg PO DAILY [facility] Last Admin: 04/07/18 08:52 Dose: 81 mg Budesonide (Pulmicort) 0.5 mg INH RTBID [facility] Last Admin: 04/07/18 18:10 Dose: 0.5 mg Clonidine HCl (Catapres) 0.1 mg PO BID PRN PRN Reason: Hypertensive Emergency Guaifenesin (Mucinex) 600 mg PO BID [facility] Last Admin: 04/07/18 08:52 Dose: 600 mg Heparin Sodium (Beef Lung) () 30 - 50 unit IVP PRN PRN PRN Reason: Central Line Protocol (<24 hr) Sodium Chloride (Normal Saline 0.9%) 1,000 mls @ 50 mls/hr IV .Q20H [facility] Last Admin: 04/07/18 08:52 Dose: 50 mls/hr Piperacillin Sod/Tazobactam (Sod 2.25 gm/ Sodium Chloride) 100 mls @ 200 mls/ hr IV Q6H [facility] Last Infusion: 04/07/18 14:50 Dose: Infused Vancomycin HCl 1.5 gm/ Sodium (Chloride) 500 mls @ 250 mls/hr IV 1600 [facility] Last Admin: 04/07/18 16:17 Dose: 250 mls/hr Fluconazole (Diflucan 200 Mg/100 Ml) 100 mls @ 50 mls/hr IV Q24H [facility]ASI PRN Reason: Per Protocol Last Infusion: 04/06/18 20:39 Dose: Infused Lactobacillus Rhamnosus (Culturelle) 1 cap PO BID [facility] Last Admin: 04/07/18 08:53 Dose: 1 cap Levothyroxine Sodium (Synthroid) 112 mcg PO QDAC [facility] Lorazepam (Ativan) 0.5 mg PO Q8HR PRN PRN Reason: Nausea / Vomiting Last Admin: 04/07/18 00:07 Dose: 0.5 mg Magnesium Oxide (Mag Ox) 400 mg PO BID [facility] Last Admin: 04/07/18 08:53 Dose: 400 mg Multivitamins (Theragran) 1 tab PO DAILY [facility] [id number] Ethyl Esters (Lovaza) 1 gm PO DAILY [facility] Ondansetron HCl (Zofran Inj) 4 mg IVP Q6HR PRN PRN Reason: Nausea / Vomiting Pantoprazole Sodium (Protonix) 40 mg PO QDAC [facility] Last Admin: 04/07/18 18:08 Dose: 40 mg Prednisone (Deltasone) 20 mg PO DAILYWM [facility] Last Admin: 04/07/18 18:08 Dose: 20 mg Sodium Chloride (Normal Saline Flush 0.9%) 10 ml IVP PRN PRN PRN Reason: NEEDED PER PROVIDER ORDERS Sodium Chloride (Normal Saline Flush 0.9%) 10 ml IVP 0100,0900,1700 [facility] Last Admin: 04/07/18 16:02 Dose: Not Given Sodium Chloride (Normal Saline Flush 0.9%) 20 ml IVP PRN PRN PRN Reason: After Blood Draw Sodium Chloride ([place]) 2 sprays SHAWN TID [facility] Last Admin: 04/07/18 14:19 Dose: 2 sprays Throat Lozenges (Cepacol) 1 lozenge MM Q2HR PRN PRN Reason: Throat pain Last Admin: 04/06/18 11:12 Dose: 1 lozenge Zolpidem Tartrate (Ambien) 5 mg PO QPM PRN PRN Reason: Insomnia Aspirin [Adult Low Dose Aspirin EC] 81 mg PO DAILY 05/12/16 Levothyroxine [Synthroid] 112 mcg PO QDAC 05/12/16 Pantoprazole Sodium [Protonix] 40 mg PO QDAC 09/08/16 Anastrozole 1 mg PO DAILY 12/21/17 LORazepam [Ativan] 0.5 mg PO Q8HR PRN 03/22/18 Fluticasone/Salmeterol [Advair 500-50 Diskus] 1 puffs INH BID 04/02/18 Multivitamin [Theragran] 1 tab PO DAILY 04/02/18 [place]-3 Acid Ethyl Esters [Lovaza] 1 gm PO DAILY 04/02/18 Prochlorperazine Maleate 10 mg PO Q6H PRN 04/02/18 Objective - Vital Signs/Intake & Output Reviewed Vital Signs: Yes Vital Signs: Vital Signs x48h Temp Pulse Pulse Resp BP Pulse Ox 04/07/18 15:38 36.4 C L 73 20 150/73 H 100 04/07/18 13:47 70 14 Intake & Output: Intake & Output 04/04/18 04/05/18 04/06/18 04/07/18 23:59 23:59 23:59 23:59 Intake Total 3220.000 2846.833 3550.000 1130 Balance 3220.000 2846.833 3550.000 1130 - Objective General Appearance: positive: No acute distress, Alert, Anxious Eyes Bilateral: positive: Normal inspection, PERRL Eyes: OU Conjunctivae pale ENT: positive: ENT inspection nml, Pharynx nml, Pharyngeal erythema, Dry mucous membranes Neck: positive: Nml inspection, Thyroid nml, No JVD, Trachea midline, Lymphadenopathy (R), Lymphadenopathy (L) Respiratory: positive: Chest non-tender, No respiratory distress, Breath sounds nml, Other (diminished.) Cardiovascular: positive: Regular rate & rhythm, No gallop, Systolic murmur, Decreased pulse(s) Peripheral Pulses: 2+ Radial (R), 2+ Radial (L) Abdomen: positive: Non-tender, Nml bowel sounds, Other (rounded, soft) Back: positive: Nml inspection Skin: positive: No rash, Warm, Dry, Pallor Extremities: positive: Non-tender, Full ROM, Pedal edema (mild, dependent), Joint swelling Neurologic/Psychiatric: positive: Oriented x3, CN's nml (2-12), Motor nml, Sensation nml, Depressed mood/affect (mild STM loss) Reflexes: Bicep (R): 3+, Bicep (L): 3+ - Lab Results Fish Bones: 04/07/18 05:37 04/07/18 05:37 Other Labs: Lab Results x24hrs 04/07/18 04/07/18 04/07/18 Range/Units 15:15 05:37 05:37 WBC 3.2 L (4.8-10.8) x10^3/uL RBC 2.51 L (4.20-5.40) 10^6/uL Hgb 7.8 L (12.0-16.0) g/dL Hct 23.7 L (37.0-47.0) % MCV 94.6 (81.0-99.0) fL MCH 31.1 H (27.0-31.0) pg MCHC 32.9 (32.0-36.0) g/dL RDW 15.6 H (12.0-15.0) % Plt Count 80 L (130-450) 10^3/uL MPV 7.9 (7.9-10.8) fL Neut # Not Reportable Lymph # Not Reportable [place] # Not Reportable Eos # Not Reportable Baso # Not Reportable Absolute Nucleated RBC Not Reportable Total Counted 100 Band Neuts % (Manual) 1 (0 - 10) % Abnorm Lymph % (Manual) 0 % Nucleated RBC % Not Reportable Neutrophils # (Manual) 0.7 L (1.5-6.6) 10^3/uL Lymphocytes # (Manual) 2.1 (1.5-3.5) 10^3/uL Monocytes # (Manual) 0.3 (0.0-1.0) 10^3/uL Eosinophils # (Manual) 0.1 (0-0.7) 10^3/uL Basophils # (Manual) 0.0 (0-0.1) 10^3/uL Differential Comment MANUAL DIFFERENTIAL Platelet Estimate DECREASED (<130,000) (NORMAL) RBC Morph Micro Appear NORMAL APPEARANCE (NORMAL) Sodium 139 (135-145) mmol/L Potassium 4.2 (3.5-5.0) mmol/L Chloride 112 H (101-111) mmol/L Carbon Dioxide 19 L (21-32) mmol/L Anion Gap 8.0 (6-13) BUN 15 (6-20) mg/dL Creatinine 2.1 H (0.4-1.0) mg/dL Estimated GFR (MDRD) 23 L (>89) Glucose 85 (70-100) mg/dL Calcium 8.4 L (8.5-10.3) mg/dL Magnesium 1.8 (1.7-2.8) mg/dL Total Bilirubin 0.7 (0.2-1.0) mg/dL AST 34 (10-42) IU/L ALT 21 (10-60) IU/L Alkaline Phosphatase 72 (42-121) IU/L Total Protein 6.2 L (6.7-8.2) g/dL Albumin 3.1 L (3.2-5.5) g/dL Globulin 3.1 (2.1-4.2) g/dL Albumin/Globulin Ratio 1.0 (1.0-2.2) Last Dose Date UNKNOWN Last Dose Time UNKNOWN Vancomycin Trough 24.0 H (5.0-15.0) ug/mL - Diagnostic Imaging Diagnostic Imaging Results: positive: Final report reviewed ABX Reporting Has patient been on IV antibiotics over the past 48 hours?: Yes Assessment/Plan - Problem List (1) Pneumonia Impression: The patient was found to have a right lower lobe pneumonia that was confirmed by a chest CT upon admission. She has a known history of lung CA and is under the care of Elba White oncology and is nearly complete with her latest 16-week treatment course. The patient's lung sounds are improved and overall condition. Anti-fungal, and dual antibiotic coverage seem to be serving her well. She is also getting scheduled nebs, respiratory care and scheduled LABA via nebulizer. Today an incentive spirometer was ordered due to decreased activity tolerance. Plan: Continue to monitor signs of worsening, continue treatment for PNA, daily labs. The patient has had an extended stay due to her complexity of this pneumonia, which required a change in her IV treatment. Today, she reports moderate activity intolerance and complains of profound SOB with exertion. Nursing reports that these episodes are charted and she is not found to have low oxygen or low blood pressures. I suspect that this may be a result of being low on red blood cells, so one unit was ordered for tonight. She is expected to be discharged by tomorrow. Qualifiers: Laterality: right Lung location: lower lobe of lung (2) Anemia Impression: She was given 2 units of PRBCs upon admission. Following H/H have been stable, but today some trending down was noticed and her H/H was 7.8 and 23.7. In addition, she describes profound activity intolerance that was first notice last evening, and became worse this AM. She has no evidence of bleeding and this is likely a result of her active chemotherapy and in the setting of acute illness. Plan: Transfuse 1 unit of PRBCs tonight and re-check labs in the AM. 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 Dr. White is aware of this admission and her chemo is on hold until after full PNA treatment. Plan: Continue to monitor respiratory status. (4) Thrombocytopenia Impression: The patient continues to have a low platelet count at 80 today. In the ED upon presentation, she received 1 unit of platelets as she was compromised by having acute PNA. This is likely caused by her recent chemo treatments. Plan: Continue to monitor daily labs and transfuse platelets for a level of 10 or less. (5) Breast cancer Impression: The patient denies symptoms and has not required any invasive treatment so far. She states that her left breast cancer is considered stable. She is prescribed Anastrazole PO by oncology, who recommends a continuation of this. This continues to be on HOLD this for now as per family and patient request. Plan: Continue to monitor. Qualifiers: Laterality: left (6) Pulmonary HTN Impression: An echocardiogram was completed on 04/02/18 and showed an elevated RVSP at rest of 58mmHg. The patient is noted to have chronic increased abdominal girth. Plan: Continue treatment of this pneumonia by using nebs, IV antibiotics, and expectorants. (7) HTN (hypertension) Impression: The patient is post mitral valve repair (open) and has a known history of HTN. She and her admit to using ARBs and beta blockers at home, but this is not listed on her home medication list. Blood pressure today was 150/73. Plan: continue to monitor vital signs. Qualifiers: Hypertension type: essential hypertension Qualified Code(s): I10 - Essential (primary) hypertension
[2018-04-07] MEDS: predniSONE 20 MG TABLET PO SCH (18:08)
[2018-04-07] MEDS: PANTOPRAZOLE 40 MG TABLET PO SCH (18:08)
[2018-04-07] MEDS: FLUCONAZOLE 200 MG/100 ML 100 ML IV SCH (18:49)
[2018-04-07] MEDS ORDERED: FUROSEMIDE 40 MG/4 ML VIAL IVP STA (22:46)
[2018-04-07] MEDS: SODIUM CHLORIDE FLUSH 0.9% 10 ML SYRINGE IVP PRN (23:06)
[2018-04-08] MEDS: SODIUM CHLORIDE FLUSH 0.9% 10 ML SYRINGE IVP SCH ×3 (00:56→18:18)
[2018-04-08] MEDS: PIPERACILLIN/TAZOBACTAM 2.25 GM in SODIUM CHLORIDE 0.9% MINIBAG 100 ML IV SCH ×4 (02:24→20:22)
[2018-04-08] MEDS: SODIUM CHLORIDE FLUSH 0.9% 10 ML SYRINGE IVP PRN ×5 (02:24→15:22)
[2018-04-08 05:03] LABS: BASOPHILS % (AUTO) 0.7 %; EOSINOPHILS % (AUTO) 0.5 %; HGB - HEMOGLOBIN 9.2 g/dL (12.0-16.0); LYMPHOCYTES % (AUTO) 36.2 %; MEAN CORPUSCULAR HEMOGLOBIN 30.7 pg (27.0-31.0); MEAN CORPUSCULAR HGB CONC 33.5 g/dL (32.0-36.0); MEAN CORPUSCULAR VOLUME 91.5 fL (81.0-99.0); MEAN PLATELET VOLUME 7.8 fL (7.9-10.8); MONOCYTES % (AUTO) 20.8 %; NEUTROPHILS % (AUTO) 41.8 %; PLT - PLATELET COUNT 89 10^3/uL (130-450); RED BLOOD COUNT 2.99 10^6/uL (4.20-5.40); RED CELL DISTRIBUTION WIDTH 16.9 % (12.0-15.0); WHITE BLOOD COUNT 2.4 x10^3/uL (4.8-10.8)
[2018-04-08 05:08] LABS: ALBUMIN 3.5 g/dL (3.2-5.5); ALBUMIN/GLOBULIN RATIO 1.1 (1.0-2.2); BILIRUBIN,TOTAL 0.8 mg/dL (0.2-1.0); CALCIUM 8.6 mg/dL (8.5-10.3); MAGNESIUM 1.7 mg/dL (1.7-2.8); TOTAL PROTEIN 6.7 g/dL (6.7-8.2)
[2018-04-08 05:46] LABS: ABNORMAL LYMPHS % (MANUAL) 0 %
[2018-04-08 05:50] LABS: BAND NEUTROPHILS % (MANUAL) 5 %; LYMPHOCYTES # (MANUAL) 0.9 10^3/uL (1.5-3.5); LYMPHOCYTES % (MANUAL) 38 %; MONOCYTES # (MANUAL) 0.3 10^3/uL (0.0-1.0); MYELOCYTES % (MANUAL) 2 %; NEUTROPHILS # (MANUAL) 1.2 10^3/uL (1.5-6.6); NEUTROPHILS % (MANUAL) 43 %; PLATELET ESTIMATE, MANUAL DECREASED (<130,000) (NORMAL); RBC MORPHOLOGY (MULTIPLE) NORMAL APPEARANCE (NORMAL)
[2018-04-08 05:51] LABS: DIFFERENTIAL COMMENT MANUAL DIFFERENTIAL
[2018-04-08] MEDS: PANTOPRAZOLE 40 MG TABLET PO SCH (06:38)
[2018-04-08] MEDS: LEVOTHYROXINE 112 MCG TABLET PO SCH (06:38)
[2018-04-08] MEDS: SODIUM CHLORIDE 0.65% NASAL SPRAY NAS SCH ×3 (06:39→20:40)
--- NOTE | 2018-04-08 08:06 | DISCHARGE SUMMARY ---
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 The patient presented to the ER with complaints of chills, increased shortness of breath, generalized weakness, and gross hemoptysis, where she vomited approximately 10-20 ml of blood when she had a very hard coughing spell that started 2 weeks prior. She admits to this on a previous occasion. She denied fevers, nausea, vomiting or chest pain. 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 Patient reports that her renal function continues to deteriorate since starting chemotherapy and in the last [address] without contrast showed pneumonia. She was found to be significantly anemic and thrombocytopenic, with CKD stage 4 once in the ED. She will be admitted to inpatient for further treatment of her anemia and treatment of pneumonia. - ALLERGIES Allergies/Adverse Reactions: Allergies Allergy/AdvReac Type Severity Reaction Status Date / Time gentamicin Allergy ototoxicity Verified 04/02/18 12:20 - MEDICATIONS Home Medications: Ambulatory Orders Medication Instructions Recorded Confirmed Aspirin [Adult Low Dose Aspirin EC] 81 mg PO DAILY 05/12/16 04/02/18 Levothyroxine [Synthroid] 112 mcg PO QDAC 05/12/16 04/02/18 Pantoprazole Sodium [Protonix] 40 mg PO QDAC 09/08/16 04/02/18 Anastrozole 1 mg PO DAILY 12/21/17 04/02/18 LORazepam [Ativan] 0.5 mg PO Q8HR PRN 03/22/18 04/02/18 Fluticasone/Salmeterol [Advair 1 puffs INH BID 04/02/18 04/02/18 500-50 Diskus] Multivitamin [Theragran] 1 tab PO DAILY 04/02/18 04/02/18 [place]-3 Acid Ethyl Esters [Lovaza] 1 gm PO DAILY 04/02/18 04/02/18 Prochlorperazine Maleate 10 mg PO Q6H PRN 04/02/18 04/02/18 - PHYSICAL EXAM AT DISCHARGE General Appearance: positive: No acute distress, Alert Eyes Bilateral: positive: Normal inspection, PERRL ENT: positive: ENT inspection nml, Pharyngeal erythema, Dry mucous membranes Neck: positive: Nml inspection, Thyroid nml, No JVD, Trachea midline Respiratory: positive: Chest non-tender, No respiratory distress, Wheezes, Other (scattered crackles, very slight wheezing.) Cardiovascular: positive: Regular rate & rhythm, No gallop, Systolic murmur, Decreased pulse(s) Peripheral Pulses: positive: 2+ Abdomen: positive: Non-tender, Nml bowel sounds, Other (rounded, soft) Back: positive: Nml inspection Skin: positive: No rash, Warm, Dry, Pallor Extremities: positive: Non-tender, Full ROM, Pedal edema (chronic, mild), Joint swelling Neurologic/Psychiatric: positive: Oriented x3, CN's nml (2-12), Motor nml, Weakness, Sensory loss, Depressed mood/affect Reflexes: Bicep (R): 3+, Bicep (L): 3+ - LABS Result Diagrams: 04/08/18 04:30 04/08/18 04:30 - DIAGNOSTIC IMAGING Diagnostic Imaging Results: Final report reviewed - TIME SPENT Time Spent in Discharge (Minutes): 60
[2018-04-08] MEDS: predniSONE 20 MG TABLET PO SCH (08:17)
[2018-04-08] MEDS: ASPIRIN EC 81 MG TABLET PO SCH (08:17)
[2018-04-08] MEDS: MULTIVITAMIN TABLET PO SCH (08:17)
[2018-04-08] MEDS: guaiFENesin 600 MG TABLET PO SCH ×2 (08:17→20:36)
[2018-04-08] MEDS: LACTOBACILLUS RHAMNOSUS GG CAPSULE PO SCH ×2 (08:17→20:36)
[2018-04-08] MEDS: MAGNESIUM OXIDE 400 MG TABLET PO SCH ×2 (08:17→20:36)
[2018-04-08] MEDS: OMEGA-3 ACID ETHYL ESTERS 1 GM CAPSULE PO SCH (08:17)
[2018-04-08] MEDS: IPRATROPIUM/ALBUTEROL 3 ML NEB INH SCH ×3 (09:34→19:05)
[2018-04-08] MEDS: BUDESONIDE 0.5 MG/2 ML NEB INH SCH ×2 (09:34→19:05)
--- NOTE | 2018-04-08 14:39 | PROVIDER PROGRESS NOTE ---
Subjective - Prog Note Date Prog Note Date: 04/08/18 Prog Note Time: 12:00 - Subjective Pt reports feeling: No change Subjective: Meena has ongoing SOB with exertion. She denies chest pain, N/V or a new or worsened cough. Current Medications - Current Medications Current Medications: Active Medications Acetaminophen (Tylenol) 650 mg PO Q4HR PRN PRN Reason: Pain 1 to 4 Albuterol/Ipratropium (Duoneb) 3 ml INH Q4HR PRN PRN Reason: Wheezing Albuterol/Ipratropium (Duoneb) 3 ml INH RTTID [facility] Last Admin: 04/08/18 09:34 Dose: 3 ml Aspirin (Ecotrin) 81 mg PO DAILY [facility] Last Admin: 04/08/18 08:17 Dose: 81 mg Budesonide (Pulmicort) 0.5 mg INH RTBID [facility] Last Admin: 04/08/18 09:34 Dose: 0.5 mg Clonidine HCl (Catapres) 0.1 mg PO BID PRN PRN Reason: Hypertensive Emergency Furosemide (Lasix Inj 40 Mg Vial) 20 mg IVP DAILY [facility] Guaifenesin (Mucinex) 600 mg PO BID [facility] Last Admin: 04/08/18 08:17 Dose: 600 mg Heparin Sodium (Beef Lung) () 30 - 50 unit IVP PRN PRN PRN Reason: Central Line Protocol (<24 hr) Piperacillin Sod/Tazobactam (Sod 2.25 gm/ Sodium Chloride) 100 mls @ 200 mls/ hr IV Q6H [facility] Last Admin: 04/08/18 14:29 Dose: 200 mls/hr Vancomycin HCl 1.5 gm/ Sodium (Chloride) 500 mls @ 250 mls/hr IV 1600 [facility] Last Infusion: 04/07/18 18:48 Dose: Infused Fluconazole (Diflucan 200 Mg/100 Ml) 100 mls @ 50 mls/hr IV Q24H [facility] PRN Reason: Per Protocol Last Infusion: 04/07/18 20:49 Dose: Infused Lactobacillus Rhamnosus (Culturelle) 1 cap PO BID [facility] Last Admin: 04/08/18 08:17 Dose: 1 cap Levothyroxine Sodium (Synthroid) 112 mcg PO QDAC [facility] Last Admin: 04/08/18 06:38 Dose: 112 mcg Lorazepam (Ativan) 0.5 mg PO Q8HR PRN PRN Reason: Nausea / Vomiting Last Admin: 04/07/18 00:07 Dose: 0.5 mg Magnesium Oxide (Mag Ox) 400 mg PO BID [facility] Last Admin: 04/08/18 08:17 Dose: 400 mg Multivitamins (Theragran) 1 tab PO DAILY [facility] Last Admin: 04/08/18 08:17 Dose: 1 tab [id number] Ethyl Esters (Lovaza) 1 gm PO DAILY [facility] Last Admin: 04/08/18 08:17 Dose: 1 gm Ondansetron HCl (Zofran Inj) 4 mg IVP Q6HR PRN PRN Reason: Nausea / Vomiting Pantoprazole Sodium (Protonix) 40 mg PO QDAC [facility] Last Admin: 04/08/18 06:38 Dose: 40 mg Prednisone (Deltasone) 20 mg PO DAILYWM [facility] Last Admin: 04/08/18 08:17 Dose: 20 mg Sodium Chloride (Normal Saline Flush 0.9%) 10 ml IVP PRN PRN PRN Reason: NEEDED PER PROVIDER ORDERS Last Admin: 04/08/18 14:29 Dose: 10 ml Sodium Chloride (Normal Saline Flush 0.9%) 10 ml IVP 0100,0900,1700 [facility] Last Admin: 04/08/18 08:18 Dose: 10 ml Sodium Chloride (Normal Saline Flush 0.9%) 20 ml IVP PRN PRN PRN Reason: After Blood Draw Last Admin: 04/08/18 03:08 Dose: 20 ml Sodium Chloride ([employer]) 2 sprays SHAWN TID [facility] Last Admin: 04/08/18 14:29 Dose: 2 sprays Spironolactone (Aldactone) 25 mg PO DAILY [facility] Throat Lozenges (Cepacol) 1 lozenge MM Q2HR PRN PRN Reason: Throat pain Last Admin: 04/06/18 11:12 Dose: 1 lozenge Zolpidem Tartrate (Ambien) 5 mg PO QPM PRN PRN Reason: Insomnia Aspirin [Adult Low Dose Aspirin EC] 81 mg PO DAILY 05/12/16 Levothyroxine [Synthroid] 112 mcg PO QDAC 05/12/16 Pantoprazole Sodium [Protonix] 40 mg PO QDAC 09/08/16 Anastrozole 1 mg PO DAILY 12/21/17 LORazepam [Ativan] 0.5 mg PO Q8HR PRN 03/22/18 Fluticasone/Salmeterol [Advair 500-50 Diskus] 1 puffs INH BID 04/02/18 Multivitamin [Theragran] 1 tab PO DAILY 04/02/18 [place]-3 Acid Ethyl Esters [Lovaza] 1 gm PO DAILY 04/02/18 Prochlorperazine Maleate 10 mg PO Q6H PRN 04/02/18 Objective - Vital Signs/Intake & Output Reviewed Vital Signs: Yes Vital Signs: Vital Signs x48h Temp Pulse Pulse Resp BP Pulse Ox 04/08/18 09:35 79 18 04/08/18 09:00 36.6 C 79 16 159/78 H 100 Intake & Output: Intake & Output 04/05/18 04/06/18 04/07/18 04/08/18 23:59 23:59 23:59 23:59 Intake Total 2846.833 3550.000 2190 1150 Output Total 400 550 Balance 2846.833 3550.000 1790 600 - Objective General Appearance: positive: Alert, Moderate distress Eyes Bilateral: positive: Normal inspection, PERRL Eyes: OU Conjunctivae pale, OU Scleral icterus ENT: positive: ENT inspection nml, Pharynx nml, Pharyngeal erythema, Dry mucous membranes Neck: positive: Nml inspection, Thyroid nml, No JVD, Trachea midline, Lymphadenopathy (R), Lymphadenopathy (L) Respiratory: positive: Chest non-tender, No respiratory distress, Wheezes, Other (scattered crackles.) Cardiovascular: positive: Regular rate & rhythm, Systolic murmur (mitral regurg) , Decreased pulse(s) Peripheral Pulses: 2+ Radial (R), 2+ Radial (L) Abdomen: positive: Non-tender, Nml bowel sounds, Other (Patient complains of bloating, rounded, soft.) Back: positive: Nml inspection Skin: positive: No rash, Warm, Dry, Pallor Extremities: positive: Non-tender, Full ROM, Pedal edema (trace, increased during the day- dependent edema.) Neurologic/Psychiatric: positive: Oriented x3, CN's nml (2-12), Motor nml, Sensation nml, Weakness, Depressed mood/affect Reflexes: Bicep (R): 3+, Bicep (L): 3+ - Lab Results Fish Bones: 04/08/18 04:30 04/08/18 04:30 Other Labs: Lab Results x24hrs 04/08/18 04/08/18 04/08/18 Range/Units 04:35 04:30 04:30 WBC 2.4 L (4.8-10.8) x10^3/uL RBC 2.99 L (4.20-5.40) 10^6/uL Hgb 9.2 L (12.0-16.0) g/dL Hct 27.4 L (37.0-47.0) % MCV 91.5 (81.0-99.0) fL MCH 30.7 (27.0-31.0) pg MCHC 33.5 (32.0-36.0) g/dL RDW 16.9 H (12.0-15.0) % Plt Count 89 L (130-450) 10^3/uL MPV 7.8 L (7.9-10.8) fL Neut # Not Reportable Lymph # Not Reportable Slope # Not Reportable Eos # Not Reportable Baso # Not Reportable Absolute Nucleated RBC Not Reportable Total Counted 100 Band Neuts % (Manual) 5 (0 - 10) % Abnorm Lymph % (Manual) 0 % Myelocytes % 2 H ( - 0) % Nucleated RBC % Not Reportable Neutrophils # (Manual) 1.2 L (1.5-6.6) 10^3/uL Lymphocytes # (Manual) 0.9 L (1.5-3.5) 10^3/uL Monocytes # (Manual) 0.3 (0.0-1.0) 10^3/uL Eosinophils # (Manual) 0.0 (0-0.7) 10^3/uL Basophils # (Manual) 0.0 (0-0.1) 10^3/uL Nucleated RBCs 1 % Differential Comment MANUAL DIFFERENTIAL Manual Slide Review Indicated Platelet Estimate DECREASED (<130,000) (NORMAL) RBC Morph Micro Appear NORMAL APPEARANCE (NORMAL) Sodium 137 (135-145) mmol/L Potassium 5.1 H (3.5-5.0) mmol/L Chloride 109 (101-111) mmol/L Carbon Dioxide 19 L (21-32) mmol/L Anion Gap 9.0 (6-13) BUN 15 (6-20) mg/dL Creatinine 2.0 H (0.4-1.0) mg/dL Estimated GFR (MDRD) 25 L (>89) Glucose 143 H (70-100) mg/dL Calcium 8.6 (8.5-10.3) mg/dL Magnesium 1.7 (1.7-2.8) mg/dL Total Bilirubin 0.8 (0.2-1.0) mg/dL AST 50 H (10-42) IU/L ALT 33 (10-60) IU/L Alkaline Phosphatase 86 (42-121) IU/L B-Natriuretic Peptide 257 H (5-100) pg/mL Total Protein 6.7 (6.7-8.2) g/dL Albumin 3.5 (3.2-5.5) g/dL Globulin 3.2 (2.1-4.2) g/dL Albumin/Globulin Ratio 1.1 (1.0-2.2) Last Dose Date Last Dose Time Vancomycin Trough (5.0-15.0) ug/mL Blood Type Antibody Screen Crossmatch IS Only 04/07/18 04/07/18 Range/Units 18:30 15:15 WBC (4.8-10.8) x10^3/uL RBC (4.20-5.40) 10^6/uL Hgb (12.0-16.0) g/dL Hct (37.0-47.0) % MCV (81.0-99.0) fL MCH (27.0-31.0) pg MCHC (32.0-36.0) g/dL RDW (12.0-15.0) % Plt Count (130-450) 10^3/uL MPV (7.9-10.8) fL Neut # Lymph # Slope # Eos # Baso # Absolute Nucleated RBC Total Counted Band Neuts % (Manual) (0 - 10) % Abnorm Lymph % (Manual) % Myelocytes % ( - 0) % Nucleated RBC % Neutrophils # (Manual) (1.5-6.6) 10^3/uL Lymphocytes # (Manual) (1.5-3.5) 10^3/uL Monocytes # (Manual) (0.0-1.0) 10^3/uL Eosinophils # (Manual) (0-0.7) 10^3/uL Basophils # (Manual) (0-0.1) 10^3/uL Nucleated RBCs % Differential Comment Manual Slide Review Platelet Estimate (NORMAL) RBC Morph Micro Appear (NORMAL) Sodium (135-145) mmol/L Potassium (3.5-5.0) mmol/L Chloride (101-111) mmol/L Carbon Dioxide (21-32) mmol/L Anion Gap (6-13) BUN (6-20) mg/dL Creatinine (0.4-1.0) mg/dL Estimated GFR (MDRD) (>89) Glucose (70-100) mg/dL Calcium (8.5-10.3) mg/dL Magnesium (1.7-2.8) mg/dL Total Bilirubin (0.2-1.0) mg/dL AST (10-42) IU/L ALT (10-60) IU/L Alkaline Phosphatase (42-121) IU/L B-Natriuretic Peptide (5-100) pg/mL Total Protein (6.7-8.2) g/dL Albumin (3.2-5.5) g/dL Globulin (2.1-4.2) g/dL Albumin/Globulin Ratio (1.0-2.2) Last Dose Date UNKNOWN Last Dose Time UNKNOWN Vancomycin Trough 24.0 H (5.0-15.0) ug/mL Blood Type O POSITIVE Antibody Screen NEGATIVE Crossmatch IS Only See Detail - Diagnostic Imaging Diagnostic Imaging Results: positive: Final report reviewed ABX Reporting Has patient been on IV antibiotics over the past 48 hours?: Yes Assessment/Plan - Problem List (1) Pneumonia Impression: The patient was found to have a right lower lobe pneumonia that was confirmed by a chest CT upon admission. She has a known history of lung CA and is under the care of Elba White, oncology and is nearly complete with her latest 16-week treatment course. Anti-fungal, and dual antibiotic coverage seem to be serving her well. She is also getting scheduled nebs, respiratory care and scheduled LABA via nebulizer. Although she was improved after her antibiotic changes, she is still having ongoing activity intolerance in which she becomes easily winded after going into the bathroom or ambulating. A BNP was obtained and was 257 today. Respiratory therapy suggests pulmonary rehab upon discharge. Plan: Continue to monitor signs of worsening, continue treatment for PNA, daily labs, chest x-ray today. The patient has had an extended stay due to her complexity of this pneumonia, which required a change in her IV treatment. Today, she reports moderate activity intolerance and complains of profound SOB with exertion. Nursing reports that these episodes are charted and she is not found to have low oxygen or low blood pressures. I suspect that this may be a result of being low on red blood cells, so one unit was ordered for tonight. She is expected to be discharged by tomorrow. Qualifiers: Laterality: right Lung location: lower lobe of lung (2) Anemia Impression: She was given 2 units of PRBCs upon admission. Following H/H have been stable, but today some trending down was noticed and her H/H was 7.8 and 23.7. In addition, she describes profound activity intolerance that was first notice last evening, and became worse this AM. She has no evidence of bleeding and this is likely a result of her active chemotherapy and in the setting of acute illness. Plan: Transfuse 1 unit of PRBCs tonight and re-check labs in the AM. 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 Dr. White is aware of this admission and her chemo is on hold until after full PNA treatment. Plan: Continue to monitor respiratory status. (4) Thrombocytopenia Impression: The patient continues to have a low platelet count at 80 today. In the ED upon presentation, she received 1 unit of platelets as she was compromised by having acute PNA. This is likely caused by her recent chemo treatments. Plan: Continue to monitor daily labs and transfuse platelets for a level of 10 or less. (5) Breast cancer Impression: The patient denies symptoms and has not required any invasive treatment so far. She states that her left breast cancer is considered stable. She is prescribed Anastrazole PO by oncology, who recommends a continuation of this. This continues to be on HOLD this for now as per family and patient request. Plan: Continue to monitor Qualifiers: Laterality: left (6) Pulmonary HTN Impression: An echocardiogram was completed on 04/02/18 and showed an elevated RVSP at rest of 58mmHg. The patient is noted to have chronic increased abdominal girth. Plan: Continue treatment of this pneumonia by using nebs, IV antibiotics, and expectorants. (7) HTN (hypertension) Impression: The patient is post mitral valve repair (open) and has a known history of HTN. She and her admit to using ARBs and beta blockers at home, but this is not listed on her home medication list. Blood pressure today was 150/73. Plan: continue to monitor vital signs. Qualifiers: Hypertension type: essential hypertension Qualified Code(s): I10 - Essential (primary) hypertension
[2018-04-08] MEDS ORDERED: FUROSEMIDE 40 MG/4 ML VIAL IVP SCH (15:00)
[2018-04-08] MEDS: FUROSEMIDE 20 MG/2 ML VIAL IVP SCH (15:21)
[2018-04-08] MEDS: SPIRONOLACTONE 25 MG TABLET PO SCH (15:21)
[2018-04-08] MEDS: VANCOMYCIN INJ 1.5 GM in SODIUM CHLORIDE 0.9% 500 ML IV SCH (15:45)
--- NOTE | 2018-04-08 18:04 | XRAY Report ---
FRONTAL CHEST: 04/08/2018 CLINICAL INDICATION: Shortness of breath. COMPARISON: CT 04/02/2018. FINDINGS: Frontal view of the chest demonstrates an enlarged cardiac silhouette. Left jugular port is in stable position. Right effusion and patchy basilar airspace disease persists, stable. No new infiltrate or pneumothorax. IMPRESSION: STABLE RIGHT EFFUSION AND PATCHY BASILAR AIRSPACE DISEASE. TD: 04/08/2018 15:11
[2018-04-08] MEDS: FLUCONAZOLE 200 MG/100 ML 100 ML IV SCH (18:18)
[2018-04-09] MEDS: PIPERACILLIN/TAZOBACTAM 2.25 GM in SODIUM CHLORIDE 0.9% MINIBAG 100 ML IV SCH ×2 (01:06→07:40)
[2018-04-09] MEDS: IPRATROPIUM/ALBUTEROL 3 ML NEB INH SCH (06:06)
[2018-04-09] MEDS: BUDESONIDE 0.5 MG/2 ML NEB INH SCH (06:06)
[2018-04-09 06:41] LABS: BASOPHILS % (AUTO) 0.4 %; EOSINOPHILS % (AUTO) 1.1 %; HGB - HEMOGLOBIN 8.7 g/dL (12.0-16.0); LYMPHOCYTES % (AUTO) 35.3 %; MEAN CORPUSCULAR HEMOGLOBIN 30.3 pg (27.0-31.0); MEAN CORPUSCULAR HGB CONC 32.7 g/dL (32.0-36.0); MEAN CORPUSCULAR VOLUME 92.5 fL (81.0-99.0); MEAN PLATELET VOLUME 7.5 fL (7.9-10.8); MONOCYTES % (AUTO) 38.1 %; NEUTROPHILS % (AUTO) 25.1 %; PLT - PLATELET COUNT 108 10^3/uL (130-450); RED BLOOD COUNT 2.86 10^6/uL (4.20-5.40); RED CELL DISTRIBUTION WIDTH 16.8 % (12.0-15.0); WHITE BLOOD COUNT 4.1 x10^3/uL (4.8-10.8)
[2018-04-09 06:44] LABS: ABNORMAL LYMPHS % (MANUAL) 0 %
[2018-04-09] MEDS: PANTOPRAZOLE 40 MG TABLET PO SCH (06:50)
[2018-04-09] MEDS: LEVOTHYROXINE 112 MCG TABLET PO SCH (06:50)
[2018-04-09] MEDS: SODIUM CHLORIDE 0.65% NASAL SPRAY NAS SCH ×2 (06:51→14:25)
[2018-04-09 06:52] LABS: ALBUMIN 3.4 g/dL (3.2-5.5); ALBUMIN/GLOBULIN RATIO 1.1 (1.0-2.2); CALCIUM 8.6 mg/dL (8.5-10.3); CREATININE 2.4 mg/dL (0.4-1.0); TOTAL PROTEIN 6.5 g/dL (6.7-8.2)
[2018-04-09] MEDS: SODIUM CHLORIDE FLUSH 0.9% 10 ML SYRINGE IVP SCH ×2 (06:53→08:51)
[2018-04-09 07:07] LABS: BAND NEUTROPHILS % (MANUAL) 1 %; LYMPHOCYTES # (MANUAL) 1.7 10^3/uL (1.5-3.5); LYMPHOCYTES % (MANUAL) 42 %; MONOCYTES # (MANUAL) 1.3 10^3/uL (0.0-1.0); NEUTROPHILS # (MANUAL) 1.1 10^3/uL (1.5-6.6); NEUTROPHILS % (MANUAL) 25 %; PLATELET ESTIMATE, MANUAL DECREASED (<130,000) (NORMAL); RBC MORPHOLOGY (MULTIPLE) NORMAL APPEARANCE (NORMAL)
[2018-04-09 07:08] LABS: DIFFERENTIAL COMMENT MANUAL DIFFERENTIAL
[2018-04-09] MEDS: predniSONE 20 MG TABLET PO SCH (07:40)
[2018-04-09] MEDS: ASPIRIN EC 81 MG TABLET PO SCH (08:37)
[2018-04-09] MEDS: FUROSEMIDE 20 MG/2 ML VIAL IVP SCH (08:37)
[2018-04-09] MEDS: guaiFENesin 600 MG TABLET PO SCH (08:37)
[2018-04-09] MEDS: MAGNESIUM OXIDE 400 MG TABLET PO SCH (08:37)
[2018-04-09] MEDS: MULTIVITAMIN TABLET PO SCH (08:38)
[2018-04-09] MEDS: OMEGA-3 ACID ETHYL ESTERS 1 GM CAPSULE PO SCH (08:38)
[2018-04-09] MEDS: LACTOBACILLUS RHAMNOSUS GG CAPSULE PO SCH (08:38)
[2018-04-09] MEDS: SPIRONOLACTONE 25 MG TABLET PO SCH (08:45)
[2018-04-09] MEDS: SODIUM CHLORIDE FLUSH 0.9% 10 ML SYRINGE IVP PRN (08:47)
--- NOTE | 2018-04-09 12:55 | Discharge Plan ---
Discharge Plan Disposition: Home, Self Care Condition: Poor Prescriptions: Amox/Clav 500/125 [Augmentin] 1 each PO Q12H #14 tablet Furosemide [Lasix] 20 mg PO DAILY #7 tablet Lactobacillus Rhamnosus GG [Culturelle] 1 cap PO DAILY #10 capsule Magnesium Oxide [Mag Ox] 400 mg PO DAILY #10 tablet predniSONE [Deltasone] 10 mg PO DAILYWM #4 tablet Spironolactone [Aldactone] 25 mg PO DAILY #7 tablet Diet: Regular Activity Restrictions: Activity as Tolerated Shower Restrictions: No (caregiver closely monitor, fall precaution) Assistance Devices: Walker Instruction Topics: Lactobacillus Oral formulations, Amoxicillin Clavulanic Acid tablets, Prednisone tablets, Furosemide tablets, Spironolactone tablets, ED Renal Failure Chronic Additional Instructions or Follow Up instructions: You may follow up your PCP in 2-3 days, follow up oncologist as the schedule, follow up entry level business analyst, and experience designer and pulmonary rehab as out-pt. You may keep hydration, and have CBC/CMP blood work when you see your PCP. Should your symptoms return or worse, you may present ER or call 911 for help. Follow-Up Care: [facility], [facility] No Smoking: If you smoke, Please STOP! Call for help. Follow-up with: Aramis Godfrey MD [Primary Care Provider] -
--- NOTE | 2018-04-09 14:13 | DISCHARGE SUMMARY ---
Discharge Summary Discharge Date: 04/09/18 Discharging Provider: PULIDO Primary Care Provider: Dr. Godfrey Condition at Discharge: Poor Discharge Disposition: 01 Home, Self Care Discharge Facility Name: home - DIAGNOSES Admission Diagnoses: (1) Pneumonia (2) Anemia (3) Thrombocytopenia (5) Lung cancer (6) Breast cancer (7) CKD (chronic kidney disease) (8) HTN (hypertension) (9) History of COPD (10) Hypothyroidism (11) hemoptysis Discharge Diagnoses with Status of Each Condition: (1) Pneumonia no fever, chill, cough. SOB at exertion is better today, per pt report. WBC is back to 4.1 98% sats on room air. continue antibiotics course. (2) Anemia HGB 8.7 now. stable. continue to be managed by oncologist and PCP (3) Thrombocytopenia PLT is back to 108, resolved. (5) Lung cancer continue to be managed by oncologist (6) Breast cancer continue to be managed by oncologist (7) CKD (chronic kidney disease) stage 4. advise pt hydration and avoid nephrotoxical agents. follow up out-pt Primary Clinician (8) HTN (hypertension) stable, continue to be managed by PCP (9) History of COPD resume home regime, continue to be managed by PCP and [employer] Polygraph Operator as out-pt, continue to have pulmonary rehab (10) Hypothyroidism stable, T3/4 normal (11) hemoptysis resolved. continue to be managed by PCP and [employer] Poly[employer] Operator as out-pt (12) shortness of breath is better controlled. pt is prescribed low dosage of Lasix and Aldactone. pt had ECHO reveals RSVP 58. continue to be managed by PCP and [employer] Poly[employer] Operator as out -pt (13) pulmonary HTN pt had RSVP 58. continue to be managed by PCP and [employer] Poly[employer] Operator as out-pt. - HPI History of Present Illness: Ms. 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 Pt denies fever , and chest pain. Pt report she vomited about 10-20 ml blood when she had a very hard cough. Pt report she has twice hemoptysis before. The vomited volume of blood was similar as before. Pt report she had a skilled nursing history of cigarette smoking. Her father had breast caner and from the breast cancer. Pt report her renal function continue to deteriorate since she had all these chemotherapy. Pt report in the last 2 weeks she has been an increasing cough, and even it has became worsening despite she took Keflex. Today morning she had chills but without fever, and increased shortness of breath, generalized weakness, and a small amount of hemoptysis. CT of chest without contrast shows a pneumonia. Pt had significant anemia and thrombocytopenia, CKD stage 4 in ER lab test today. - ALLERGIES Allergies/Adverse Reactions: Allergies Allergy/AdvReac Type Severity Reaction Status Date / Time gentamicin Allergy ototoxicity Verified 04/02/18 12:20 - MEDICATIONS Home Medications: Ambulatory Orders Medication Instructions Recorded Confirmed Aspirin [Adult Low Dose Aspirin EC] 81 mg PO DAILY 05/12/16 04/02/18 Levothyroxine [Synthroid] 112 mcg PO QDAC 05/12/16 04/02/18 Pantoprazole Sodium [Protonix] 40 mg PO QDAC 09/08/16 04/02/18 Anastrozole 1 mg PO DAILY 12/21/17 04/02/18 LORazepam [Ativan] 0.5 mg PO Q8HR PRN 03/22/18 04/02/18 Fluticasone/Salmeterol [Advair 1 puffs INH BID 04/02/18 04/02/18 500-50 Diskus] Multivitamin [Theragran] 1 tab PO DAILY 04/02/18 04/02/18 [place]-3 Acid Ethyl Esters [Lovaza] 1 gm PO DAILY 04/02/18 04/02/18 Prochlorperazine Maleate 10 mg PO Q6H PRN 04/02/18 04/02/18 Amox/Clav 500/125 [Augmentin] 1 each PO Q12H #14 tablet 04/09/18 Furosemide [Lasix] 20 mg PO DAILY #7 tablet 04/09/18 Lactobacillus Rhamnosus GG 1 cap PO DAILY #10 capsule 04/09/18 [Culturelle] Magnesium Oxide [Mag Ox] 400 mg PO DAILY #10 tablet 04/09/18 Spironolactone [Aldactone] 25 mg PO DAILY #7 tablet 04/09/18 predniSONE [Deltasone] 10 mg PO DAILYWM #4 tablet 04/09/18 - PHYSICAL EXAM AT DISCHARGE General Appearance: positive: No acute distress, Alert. negative: Lethargic Eyes Bilateral: positive: Normal inspection, PERRL, No lid inflammation, Conjunctivae nml ENT: positive: ENT inspection nml, Pharynx nml, No signs of dehydration. negative: Purulent nasal drainage, Pharyngeal erythema, Oral lesions Neck: positive: Nml inspection, Thyroid nml, No JVD, Trachea midline. negative : Thyromegaly, Lymphadenopathy (R), Lymphadenopathy (L), Stiff neck, Carotid bruit, Swelling/bruising, Tracheal deviation Respiratory: positive: Chest non-tender, No respiratory distress. negative: Wheezes, Rales, Rhonchi Cardiovascular: positive: Regular rate & rhythm, No murmur. negative: Irregularly irregular, Extrasystoles, Tachycardia, Bradycardia, JVD present, Systolic murmur, Diastolic murmur Peripheral Pulses: positive: 2+ Abdomen: positive: Non-tender, No organomegaly, Nml bowel sounds, No distention. negative: Tenderness, Guarding, Rebound Back: positive: Nml inspection. negative: CVA tenderness (R), CVA tenderness (L ) Skin: positive: Color nml, No rash, Warm, Dry. negative: Cyanosis, Diaphoresis , Pallor Extremities: positive: Non-tender, Full ROM, Nml appearance. negative: Calf tenderness, Joint swelling, Lucho's sign/cords Neurologic/Psychiatric: positive: Oriented x3, Sensation nml, Mood/affect nml. negative: Sensory loss, Facial droop, Slurred/abnml speech, Depressed mood/ affect - LABS Result Diagrams: 04/09/18 06:04 04/09/18 06:04 - DIAGNOSTIC IMAGING Diagnostic Imaging Results Comments: PT NAME: GÓMEZ WALLS MR#: [id number] REG ER/ED AGE: 67 CI DT/TM: 04/02/18 PCP: Aramis Godfrey MD : [id number] ATT: SEX: F ORD: Branden Tompkins MD EXAM: [id number] CT/CHTWO ([id number]) EXAM: CT CHEST EXAM DATE: 04/02/2018 04:21 PM. CLINICAL HISTORY: Hemoptysis. COMPARISONS: 01/19/2015. TECHNIQUE: Routine helical CT imaging was performed through the chest. IV contrast: None. Reconstructions: Coronal and sagittal. In accordance with CT protocol optimization, one or more of the following dose reduction techniques were utilized for this exam: automated exposure control, adjustment of mA and/or KV based on patient size, or use of iterative reconstructive technique. FINDINGS: Lungs/Pleura: No pleural effusion. Postsurgical changes in the right thorax with probable resection of the right lower lobe. Extensive ground glass throughout the right lung, favored to represent infection. Alveolar hemorrhage may also be a consideration given provided clinical history of hemoptysis. This should be followed to resolution to exclude neoplastic causes of ground glass opacification such as with diffuse bronchioloalveolar carcinoma. The left lung is clear. Mediastinum: Postsurgical changes from median sternotomy. Left-sided chest port with tip in the superior third of the SVC and oriented laterally. Mitral valve prosthesis. No pericardial effusion. Bones: Postsurgical changes from median sternotomy. Visualized unenhanced upper Abdomen: Status post cholecystectomy. Otherwise unremarkable. Other: None. IMPRESSION: Extensive groundglass opacification throughout the right lung, favor infection, see comment. [facility] Referring Provider Line: [phone] SITE ID: [id number] Director Of Critical Care: Kevin Radiologist: BREANA CHOI MD Releasing Radiologist: BREANA CHOI MD Released Date Time: 04/02/18 3452 - FOLLOW UP Follow Up: You may follow up your PCP in 2-3 days, follow up oncologist as the schedule, follow up rayon coner, and senior underwriter and pulmonary rehab as out-pt. You may keep hydration, and have CBC/CMP blood work when you see your PCP. Should your symptoms return or worse, you may present ER or call 911 for help. - TIME SPENT Time Spent in Discharge (Minutes): 60
[2018-04-09 14:43] VITALS: BP 160/72
== END 2018-04-09 14:57 | disposition home or self-care (01) | DRG 194 ==
LOC: ED 12:10 → EEVIPCON 18:23 → MS2 18:23 → UNDOADMIN 18:23
PROVIDERS: ADMIT Nurse Practitioner Gerontology; ATTEND Nurse Practitioner Gerontology
PROC: 30243R1 Transfusion of Nonautologous Platelets into Central Vein, Percutaneous Approach (ICD-10-PCS; principal; 2018-04-02)
PROC: 30243N1 Transfusion of Nonautologous Red Blood Cells into Central Vein, Percutaneous Approach (ICD-10-PCS; 2018-04-02)
DX: J18.9 Pneumonia, unspecified organism (principal); D64.9 Anemia, unspecified; D69.6 Thrombocytopenia, unspecified; C34.90 Malignant neoplasm of unspecified part of unspecified bronchus or lung; R04.2 Hemoptysis; J44.0 Chronic obstructive pulmonary disease with (acute) lower respiratory infection; E11.9 Type 2 diabetes mellitus without complications; N18.4 Chronic kidney disease, stage 4 (severe); C34.31 Malignant neoplasm of lower lobe, right bronchus or lung; D70.1 Agranulocytosis secondary to cancer chemotherapy; Z95.828 Presence of other vascular implants and grafts; D69.59 Other secondary thrombocytopenia; T45.1X5A Adverse effect of antineoplastic and immunosuppressive drugs, initial encounter; E03.9 Hypothyroidism, unspecified; I12.9 Hypertensive chronic kidney disease with stage 1 through stage 4 chronic kidney disease, or unspecified chronic kidney disease; E11.22 Type 2 diabetes mellitus with diabetic chronic kidney disease; I27.20 Pulmonary hypertension, unspecified; C50.912 Malignant neoplasm of unspecified site of left female breast; K21.9 Gastro-esophageal reflux disease without esophagitis; Z90.2 Acquired absence of lung [part of]; Z95.3 Presence of xenogenic heart valve; Z80.3 Family history of malignant neoplasm of breast; Z79.82 Long term (current) use of aspirin; Z88.1 Allergy status to other antibiotic agents; Z79.811 Long term (current) use of aromatase inhibitors; Z79.899 Other long term (current) drug therapy; Z72.0 Tobacco use
CPT/HCPCS: 36415; 71045; 71046; 71250; 78582; 80053; 83036; 83690; 83735; 83880; 84439; 84443; 84481; 84484; 85014; 85018; 85025; 85379; 85610; 86850; 86900; 86901; 86920; 87040; 87070; 87205; 93306; 94640; 94761; 96365; 99283; 99284

== ENCOUNTER 2018-06-19 09:05 | Emergency (ER) | payer MEDICARE, OTHER ==
[2018-06-19 09:29] VITALS: BP 146/86
[2018-06-19] MEDS ORDERED: PROPARACAINE 0.5% OPHTH DROPS 15 ML LEFTEYE STA (09:52)
--- NOTE | 2018-06-19 10:34 | ED Physician Documentation ---
History of Present Illness - Stated complaint Stated Complaint: L EYE SWELLING - Chief complaint Chief Complaint: Heent - Additonal information Additional information: hx from pt 67 f was gardening got something in her eye now lower lid swollen and red and has FB sensation and dc no contacts Review of Systems Eyes: reports: Irritation PD PAST MEDICAL HISTORY - Past Medical History Cardiovascular: Murmur Respiratory: COPD, Other Neuro: None Endocrine/Autoimmune: Type 2 diabetes, HyPOthyroidism GI: GERD RECEIVABLE EXECUTIVE: None : Other HEENT: None Psych: None Musculoskeletal: Osteoarthritis Derm: None - Past Surgical History Past Surgical History: Yes General: Appendectomy /RECEIVABLE EXECUTIVE: Hysterectomy Cardiovascular: Valve replacement - Present Medications Home Medications: Ambulatory Orders Medication Instructions Recorded Confirmed Aspirin [Adult Low Dose Aspirin EC] 81 mg PO DAILY 05/12/16 06/07/18 Levothyroxine [Synthroid] 112 mcg PO QDAC 05/12/16 06/07/18 Pantoprazole Sodium [Protonix] 40 mg PO QDAC 09/08/16 06/07/18 Anastrozole 1 mg PO DAILY 12/21/17 06/07/18 Fluticasone/Salmeterol [Advair 1 puffs INH BID 04/02/18 06/07/18 500-50 Diskus] Multivitamin [Theragran] 1 tab PO DAILY 04/02/18 06/07/18 [place]-3 Acid Ethyl Esters [Lovaza] 1 gm PO DAILY 04/02/18 06/07/18 Magnesium Oxide [Mag Ox] 400 mg PO DAILY #10 tablet 04/09/18 06/07/18 Metoprolol Succinate 1 tab PO DAILY 05/10/18 06/07/18 Erythromycin Base [Erythromycin] 1 applic OP Q4H #1 tub 06/19/18 - Allergies Allergies/Adverse Reactions: Allergies Allergy/AdvReac Type Severity Reaction Status Date / Time gentamicin Allergy ototoxicity Verified 06/19/18 09:29 - Social History Does the pt smoke?: No Smoking Status: Never smoker Does the pt drink ETOH?: Yes Does the pt have substance abuse?: No - Immunizations Immunizations are current?: Yes Immunizations: TDAP >10years/unknown - POLST Patient has POLST: No POLST Status: Full Code PD ED PE NORMAL - Vitals Vital signs reviewed: Yes - HEENT HEENT: Other (L eye - lower lid edema, mild erythema, purulent dc in lower lid, no FB even with lid eversion, injected, no uptake with flourescein) - Cardiac Cardiac: RRR - Respiratory Respiratory: No respiratory distress Results - Vitals Vitals: Vital Signs - 24 hr 06/19/18 09:25 Temperature 36.2 C L Heart Rate 91 Respiratory 20 Rate Blood Pressure 146/86 H O2 Saturation 97 Oxygen O2 Source [Without Activity] Room air O2 Source Room air PD MEDICAL DECISION MAKING - Sepsis Event Vital Signs: Vital Signs - 24 hr 06/19/18 09:25 Temperature 36.2 C L Heart Rate 91 Respiratory 20 Rate Blood Pressure 146/86 H O2 Saturation 97 Oxygen O2 Source [Without Activity] Room air O2 Source Room air Departure - Departure Disposition: 01 Home, Self Care Clinical Impression: Conjunctivitis Qualifiers: Conjunctivitis type: acute Acute conjunctivitis type: bacterial Laterality: left Qualified Code(s): H10.32 - Unspecified acute conjunctivitis, left eye Condition: Good Instructions: ED Conjunctivitis Bacterial Follow-Up: Aramis Godfrey MD [Primary Care Provider] - (if not better in 2 days ) Prescriptions: Erythromycin Base [Erythromycin] 1 applic OP Q4H #1 tub Comments: Tylenol and cool compresses for discomfort
== END 2018-06-19 11:12 | disposition home or self-care (01) ==
LOC: ED 09:05
DX: H10.32 Unspecified acute conjunctivitis, left eye (principal); E11.9 Type 2 diabetes mellitus without complications; Z79.82 Long term (current) use of aspirin
CPT/HCPCS: 99281; 99283; J3490

== ENCOUNTER 2018-07-12 08:00 | Outpatient (CLI) | payer MEDICARE, OTHER ==
[2018-07-12 11:57] LABS: CALCIUM 9.2 mg/dL (8.5-10.3); CREATININE 2.4 mg/dL (0.4-1.0)
== END 2018-07-12 08:01 | disposition home or self-care (01) ==
LOC: LAB.R 08:00
PROVIDERS: ATTEND Internal Medicine Nephrology
DX: N05.9 Unspecified nephritic syndrome with unspecified morphologic changes (principal)
CPT/HCPCS: 80048

== ENCOUNTER 2018-09-08 11:57 | Outpatient (CLI) | payer MEDICARE, OTHER ==
--- NOTE | 2018-09-08 12:28 | XRAY Report ---
Reason: PAIN IN RIGHT FOOT Procedure Date: 09/08/2018 Accession Number: [id number] / [id number] Procedure: XRN - Foot 3 View RT CPT Code: FULL RESULT: EXAM: RIGHT FOOT RADIOGRAPHY EXAM DATE: 09/08/2018 12:09 PM. CLINICAL HISTORY: PAIN IN RIGHT FOOT. COMPARISON: None. TECHNIQUE: 3 views. FINDINGS: Bones and Joints: Mild medial subluxation at the second, third, and fourth MTP articulations, greatest at the fourth, possibly secondary to positioning or developmental. Slight irregular bony density along the lateral aspect of the first cuneiform seen on the AP projection which could be secondary to degenerative change. If there is a history of trauma a fracture or infection cannot be excluded. Soft Tissues: Mild soft tissue swelling. No radiopaque foreign body. IMPRESSION: Mild subluxation second, third, and fourth MTP articulations, uncertain significance. Irregularity lateral distal first cuneiform, question degenerative change versus other. Mild soft tissue swelling. If clinical symptoms persist consider MRI RADIA
== END 2018-09-08 11:58 | disposition home or self-care (01) ==
LOC: DI.N 11:57
PROVIDERS: ATTEND Family Medicine
DX: M79.671 Pain in right foot (principal); S93.144A Subluxation of metatarsophalangeal joint of right lesser toe(s), initial encounter

== ENCOUNTER 2018-09-29 09:59 | Outpatient (CLI) | payer MEDICARE, OTHER ==
--- NOTE | 2018-09-29 17:29 | MRI Report ---
Reason: MALIGNANT NEOPLASM UPPER LEFT BREAST Procedure Date: 09/29/2018 Accession Number: [id number] / [id number] Procedure: MRI - Brain W/O CPT Code: FULL RESULT: MRI BRAIN WITHOUT CONTRAST INDICATION: 67-year-old female. Breast cancer. Brain MRI has been requested to assess for possible intracranial metastatic disease. COMPARISON: Head CT 01/06/2015 FINDINGS: There is generalized prominence of the cerebral cortical sulci, essentially unchanged when compared to the prior head CT. Ventricular size is normal. No hydrocephalus. A mild amount of white matter disease is identified in the supratentorial brain, manifested as small T2 hyperintensities that are scattered throughout the periventricular, deep, and subcortical white matter bilaterally. A frontoparietal distribution predominates. Signal intensity of the cortex and white matter is otherwise unremarkable. Flow voids are seen in the main intracranial arteries. The small caliber of the vertebrobasilar system can probably be explained by the presence of fairly large, posterior communicating artery supplying the leadership development instructor bilaterally. No abnormal diffusion restriction is demonstrated. There appears to be a tiny focus of magnetic susceptibility artifact in the midbrain tegmentum on the right (see image 9 of series 801). This may represent artifact or this could represent hemosiderin from previous microhemorrhage. No other potential acute or chronic hemorrhage is identified on the T2*GRE sequence. No abnormal extraaxial fluid collection. No mass effect or midline shift. There is bilateral exophthalmos of uncertain etiology. No intraorbital mass lesion is identified. The paranasal sinuses are essentially clear. No mastoid or middle ear effusion. Marrow signal intensity in the regional skeletal structures appears normal. IMPRESSION: 1. A mild amount of white matter disease is identified in the supratentorial brain. The findings are relatively nonspecific; however, this most likely represents chronic microangiopathy. 2. There appears to be a tiny focus of magnetic susceptibility artifact in the midbrain tegmentum on the right. This could represent artifact or this may represent hemosiderin from previous microhemorrhage. Main differential diagnostic considerations for microhemorrhage in a patient of this age would be prior trauma, amyloid angiopathy and chronic hypertension. 3. Otherwise unremarkable, unenhanced brain MRI. In particular, there is no evidence of intracranial metastatic disease. COMMENT: The possibility of intracranial metastatic disease cannot entirely be excluded on this study performed without IV gadolinium. However, gadolinium could not be administered for the study due to renal insufficiency (creatinine of 2.1 with GFR of 23).
== END 2018-09-29 10:00 | disposition home or self-care (01) ==
LOC: DI 09:59
PROVIDERS: ATTEND Specialist
DX: C50.412 Malignant neoplasm of upper-outer quadrant of left female breast (principal); R90.0 Intracranial space-occupying lesion found on diagnostic imaging of central nervous system; H53.9 Unspecified visual disturbance; Z85.118 Personal history of other malignant neoplasm of bronchus and lung
CPT/HCPCS: 70551

== ENCOUNTER 2018-10-20 11:49 | Outpatient (CLI) | payer MEDICARE, OTHER ==
--- NOTE | 2018-10-20 14:21 | XRAY Report ---
Reason: ACUTE BRONCHITIS, UNSPECIFIED Procedure Date: 10/20/2018 Accession Number: [id number] / [id number] Procedure: XRN - Chest 2 View X-Ray CPT Code: 88683 FULL RESULT: EXAM: CHEST RADIOGRAPHY EXAM DATE: 10/20/2018 12:05 PM. CLINICAL HISTORY: ACUTE BRONCHITIS, UNSPECIFIED. COMPARISON: CHEST 1 VIEW 04/08/2018 2:47 PM. TECHNIQUE: 2 views. FINDINGS: Lungs/Pleura: There is a persistent small right pleural effusion. No new consolidation is identified. No pneumothorax is seen. Mediastinum: Cardiomegaly appears unchanged accounting for differences in technique. Subtle calcification of the aortic arch is noted. Other: The patient is status post median sternotomy with aortic valve repair. Central venous port has been removed in the interval. IMPRESSION: Persistent small right pleural effusion, likely unchanged accounting for differences in technique. Cardiomegaly. No acute superimposed airspace disease is detected. RADIA
== END 2018-10-20 11:50 | disposition home or self-care (01) ==
LOC: DI.N 11:49
PROVIDERS: ATTEND Family Medicine
DX: J20.9 Acute bronchitis, unspecified (principal); J90 Pleural effusion, not elsewhere classified; I51.7 Cardiomegaly
CPT/HCPCS: 71046

== ENCOUNTER 2019-02-03 15:29 | Outpatient (CLI) | payer MEDICARE, OTHER ==
--- NOTE | 2019-02-03 16:33 | XRAY Report ---
Reason: LOBAR PNEUMONIA, UNSPECIFIED ORGANISM Procedure Date: 02/03/2019 Accession Number: [id number] / [id number] Procedure: XRN - Chest 2 View X-Ray CPT Code: 17696 FULL RESULT: EXAM: CHEST RADIOGRAPHY EXAM DATE: 02/03/2019 03:43 PM. CLINICAL HISTORY: Lobar pneumonia, unspecified organism. COMPARISON: CHEST 2 VIEW 10/20/2018 12:09 PM CHEST 2 VIEW PA/LAT 09/08/2016 9:29 AM CHEST W/O 04/02/2018 4:17 PM. TECHNIQUE: 2 views. FINDINGS: Lungs/Pleura: Stable blunting of the right lateral costophrenic sulcus with relative preservation of the posterior costophrenic sulcus favoring loculated pleural fluid versus pleural thickening. Possible trace free-flowing effusion. No confluent airspace opacity. No extraventilatory air. Mediastinum: Stable cardiomegaly. Pulmonary vascular pattern remains prominent but there is no aide edema. Stable sequela of prior median sternotomy with fracture of the superior-most sternotomy wire. Aortic valvuloplasty component in stable position. Clips are noted over the left upper quadrant. Other: None. IMPRESSION: 1. Stable blunting of the right lateral costophrenic sulcus favors pleural thickening versus loculated fluid. Possible trace free-flowing effusion on the lateral radiograph. 2. Stable cardiomegaly with evidence of increased intravascular fluid volume but no aide edema. 3. No appreciable infiltrates. RADIA
== END 2019-02-03 15:30 | disposition home or self-care (01) ==
LOC: DI.N 15:29
PROVIDERS: ATTEND Family Medicine
DX: J18.1 Lobar pneumonia, unspecified organism (principal); I51.7 Cardiomegaly
CPT/HCPCS: 71046

== ENCOUNTER 2019-06-27 12:41 | Outpatient (CLI) | payer MEDICARE, OTHER ==
--- NOTE | 2019-06-27 16:20 | Mammography Report ---
Reason: BREAST CANCER Procedure Date: 06/27/2019 Accession Number: [id number] / [id number] Procedure: HOSSEIN - Diagnostic Dig Bilat CPT Code: FULL RESULT: EXAM: Diagnostic Dig Bilat DATE: 06/27/2019 1:44 PM CLINICAL HISTORY: Diagnostic examination. Personal history of left breast cancer status post lumpectomy June 2018. TECHNIQUE: (B) - Bilateral CC and MLO views were obtained. Left ML, left magnified ML and left magnified CC views are obtained. COMPARISON: 06/30/2018 through 07/18/2010. PARENCHYMAL PATTERN: (A) - The breast(s) demonstrate(s) scattered fibroglandular densities. FINDINGS: Postlumpectomy and posttreatment changes are seen in the left breast including skin thickening. There are no suspicious masses, calcifications, or areas of distortion. IMPRESSION: Probably Benign. BI-RADS category 3. RECOMMENDATION: (6MOS) - Recommend 6 month follow-up exam. Left breast. BI-RADS CATEGORY: (3) - Probably Benign. STANDARD QUALIFYING STATEMENTS: 1. This examination was not reviewed with the aid of Computer-Aided Detection (CAD). 2. A negative or benign imaging report should not preclude biopsy if clinically suspicious findings are present. 3. Dense breasts may obscure an underlying neoplasm. 4. This examination was reviewed with the aid of 3D breast imaging (tomosynthesis).
== END 2019-06-27 12:42 | disposition home or self-care (01) ==
LOC: DI 12:41
PROVIDERS: ATTEND Internal Medicine Hematology & Oncology
DX: C50.912 Malignant neoplasm of unspecified site of left female breast (principal)
CPT/HCPCS: 77062; 77066

== ENCOUNTER 2021-04-01 10:09 | Outpatient (CLI) | payer MEDICARE, OTHER ==
--- NOTE | 2021-04-01 11:45 | DEXA Report ---
PROCEDURE: Dexa Spine and/or Hip INDICATIONS: POSTMENOPAUSAL TECHNIQUE: Dual energy x-ray absorptiometry (DXA) was performed on a [employer] System. Regions measur ed are the AP Spine, femoral neck, and if needed forearm. COMPARISON: None. FINDINGS: Lumbar Spine: Bone Mineral Density 0.988 g/cm/cm,T score -1.6, Left Femoral Neck: Bone Mineral Density 0.777 g/cm/cm, T score -1.8, (T score greater or equal to -1.0: NORMAL) (T score from -1.1 to -2.4: OSTEOPENIA) (T score less than or equal to -2.5 to: OSTEOPOROSIS) Impression: Osteopenia Patients with diagnosis of osteoporosis or osteopenia should have regular bone mineral density assess ment. For those eligible for Medicare, routine testing is allowed once every 2 years. Testing frequ ency can be increased for patients who have rapidly progressing disease or for those who are receivin g medical therapy to restore bone mass. Reviewed by: Eros Arrington MD on 04/01/2021 11:43 AM PDT Approved by: Eros Arrington MD on 04/01/2021 11:43 AM PDT Station ID: [id number]
== END 2021-04-01 10:10 | disposition home or self-care (01) ==
LOC: DI 10:09
PROVIDERS: ATTEND Internal Medicine Hematology & Oncology
DX: M85.89 Other specified disorders of bone density and structure, multiple sites (principal); C34.90 Malignant neoplasm of unspecified part of unspecified bronchus or lung; C50.912 Malignant neoplasm of unspecified site of left female breast; Z90.12 Acquired absence of left breast and nipple

== ENCOUNTER 2021-05-01 17:51 | Outpatient (CLI) | payer MEDICARE, OTHER | END 2021-05-01 17:52 | disposition home or self-care (01) | LOC: COV 17:51 | PROVIDERS: ATTEND Family Medicine | DX: R05 Cough (principal); R09.81 Nasal congestion; J34.89 Other specified disorders of nose and nasal sinuses; Z20.822 Contact with and (suspected) exposure to COVID-19 ==

== ENCOUNTER 2021-12-02 07:44 | Emergency (ER) | payer MEDICARE, OTHER ==
[2021-12-02] MEDS ORDERED: ACETAMINOPHEN 325 MG TABLET PO STA (08:20)
--- NOTE | 2021-12-02 08:51 | XRAY Report ---
PROCEDURE: Chest 1 View X-Ray INDICATIONS: Chest pain TECHNIQUE: One view of the chest was acquired. COMPARISON: 01/07/[address] FINDINGS: Surgical changes and devices: Median sternotomy and valvuloplasty changes. Lungs and pleura: No pleural effusions or pneumothorax. Increased interstitial and airspace opacitie s in both lungs with cephalization of pulmonary vessels. Mediastinum: Mediastinal contours appear normal. Cardiomegaly as seen on prior studies. Bones and chest wall: No suspicious bony lesions. Overlying soft tissues appear unremarkable. IMPRESSION: Cardiomegaly with findings of moderate pulmonary edema. Reviewed by: Alex Dominguez MD on 12/02/2021 8:50 AM PST Approved by: Alex Dominguez MD on 12/02/2021 8:50 AM [facility] Station ID: [id number]
--- NOTE | 2021-12-02 08:53 | ED Physician Documentation ---
PD HPI URI - Stated complaint Stated Complaint: SOA,FEVER - Chief complaint Chief Complaint: Resp - History obtained from History obtained from: Patient - History of Present Illness Timing - onset: How many weeks ago (1) Timing duration: Weeks (1) Timing details: Gradual onset, Still present Associated symptoms: Fever, Chills, Sweats, Nasal congestion, Dry cough, Dyspnea Contributing factors: Sick contact Improves by: Rest, Medication Worsened by: Activity Similar symptoms before: Has not had sx before Recently seen: Clinic - Additional information Additional information: 71-year-old female with a history of breast and lung cancer in remission has been immunized with 2 doses and she has had exposure to a grandchild with COVID and she has developed symptoms 1 week ago. She denies excessive dyspnea or chest pain. Fever +. Has type 2 diabetes. Had recent visit to oncologist with favorable profile. Review of Systems Constitutional: reports: Fever, Chills, Myalgias, Fatigue Eyes: denies: Decreased vision Ears: denies: Ear pain Nose: reports: Congestion. 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: None : Other HEENT: None Psych: None Musculoskeletal: Osteoarthritis Derm: None - Past Surgical History Past Surgical History: Yes General: Appendectomy /BOOK SALESMAN: Hysterectomy Cardiovascular: Valve replacement - Present Medications Home Medications: Ambulatory Orders Medication Instructions Recorded Confirmed Levothyroxine [Synthroid] 100 mcg PO QDAC 05/12/16 04/22/21 Anastrozole 1 mg PO DAILY 12/21/17 04/22/21 Fluticasone/Salmeterol [Advair 1 puffs INH BID 04/02/18 04/22/21 500-50 Diskus] Multivitamin [Theragran] 1 tab PO DAILY 04/02/18 04/22/21 Levothyroxine Sodium 1 tab ORAL DAILY 12/08/19 04/22/21 Magnesium 1 tab ORAL BID 12/08/19 04/22/21 Torsemide 20 mg PO BID 12/08/19 04/22/21 Ascorbic Acid [Vitamin C] 1 cap PO DAILY 03/26/20 04/22/21 Ubidecarenone [Co Q-10] 100 mg PO DAILY 03/26/20 04/22/21 - Allergies Allergies/Adverse Reactions: Allergies Allergy/AdvReac Type Severity Reaction Status Date / Time gentamicin Allergy ototoxicity Verified 12/02/21 07:59 - Social History Does the pt smoke?: No Smoking Status: Never smoker Does the pt drink ETOH?: Yes Does the pt have substance abuse?: No - Immunizations Immunizations are current?: Yes Immunizations: TDAP >10years/unknown - POLST Patient has POLST: No POLST Status: Full Code PD ED PE NORMAL - Vitals Vital signs reviewed: Yes (febrile and tachycardic) - General General: Alert and oriented X 3, No acute distress, Well developed/nourished - HEENT HEENT: Atraumatic, PERRL, EOMI - Neck Neck: Supple, no meningeal sign, No bony TTP - Cardiac Cardiac: RRR, No murmur - Respiratory Respiratory: No respiratory distress, Clear bilaterally - Abdomen Abdomen: Normal bowel sounds, Soft, Non tender, Non distended, No organomegaly - Back Back: No CVA TTP, No spinal TTP - Derm Derm: Normal color, Warm and dry, No rash - Extremities Extremities: No deformity, No edema - Neuro Neuro: Alert and oriented X 3, laborer powerhouse 2-12 intact, No motor deficit, No sensory deficit, Normal speech Eye Opening: Spontaneous Motor: Obeys Commands Verbal: Oriented GCS Score: 15 - Psych Psych: Normal mood, Normal affect Results - Vitals Vitals: Vital Signs - 24 hr 12/02/21 07:49 Temperature 38.4 C H Heart Rate 110 H Respiratory 19 Rate Blood Pressure 139/86 H O2 Saturation 96 Oxygen O2 Source [] Room air O2 Source Room air - Labs Labs: Laboratory Tests 12/02/21 12/02/21 12/02/21 08:30 09:12 09:12 WBC 7.7 RBC 3.51 L Hgb 11.9 L Hct 35.8 L MCV 102.0 H MCH 33.9 H MCHC 33.2 RDW 13.7 Plt Count 88 L MPV 10.6 Neut # (Auto) 5.8 Lymph # (Auto) 1.3 L Josephine # (Auto) 0.4 Eos # (Auto) 0.1 Baso # (Auto) 0.0 Absolute Nucleated RBC 0.00 Nucleated RBC % 0.0 Sodium 135 Potassium 3.3 L Chloride 104 Carbon Dioxide 19 L Anion Gap 12.0 BUN 24 H Creatinine 2.0 H Estimated GFR (MDRD) 24 L Glucose 111 H Calcium 8.7 Total Bilirubin 1.1 H AST 51 H ALT 29 Alkaline Phosphatase 124 H Total Protein 8.2 Albumin 3.6 Globulin 4.6 H Albumin/Globulin Ratio 0.8 L Lipase 43 Nasal Adenovirus (PCR) NOT DETECTED Nasal B. parapertussis DNA (PCR) NOT DETECTED Nasal Coronavir 229E PCR NOT DETECTED Nasal Coronavir HKU1 PCR NOT DETECTED Nasal Coronavir NL63 PCR NOT DETECTED Nasal Coronavir OC43 PCR NOT DETECTED Nasal Enterovir/Rhinovir PCR NOT DETECTED Nasal Influenza B PCR NOT DETECTED Nasal Influenza A PCR NOT DETECTED Nasal Parainfluen 1 PCR NOT DETECTED Nasal Parainfluen 2 PCR NOT DETECTED Nasal Parainfluen 3 PCR NOT DETECTED Nasal Parainfluen 4 PCR NOT DETECTED Nasal RSV (PCR) NOT DETECTED Nasal B.pertussis DNA PCR NOT DETECTED Nasal C.pneumoniae (PCR) NOT DETECTED Kris Human Metapneumo PCR NOT DETECTED Nasal M.pneumoniae (PCR) NOT DETECTED Nasal SARS-CoV-2 (PCR) DETECTED A - Rads (name of study) chest Radiology: Prelim report reviewed (Impression: Cardiomegaly with findings of moderate pulmonary edema.), EMP read indepedently, See rad report PD MEDICAL DECISION MAKING - ED course Complexity details: reviewed old records, reviewed results, re-evaluated patient, considered differential, d/w patient ED course: 71-year-old female with a history of type 2 diabetes and heart disease with congestive heart failure and valvular disease as well as breast and lung cancer in remission has developed COVID. She is immunized she appears to have a mild case 1 week into the illness. She is administered 6 mg of dexamethasone here in the emergency department as well as acetaminophen. Her main concern today in the ED was for pneumonia as she has had this twice in one year previously. I do not find evidence for pneumonia here. Departure - Departure Disposition: 01 Home, Self Care Clinical Impression: COVID-19 Condition: Stable Instructions: COVID-19 [facility], Flu and Cold: Nutrition, Prevention and Treatment Tips Follow-Up: Aramis Godfrey MD [Primary Care Provider] - Comments: Meena, today on your seventh day of illness you are not hypoxic which is a good prognostic indicator for complete recovery. It is important to treat the fever with repeated doses of tylenol to prevent dehydration. Extra fluids are indicated. If you develop progressive shortness of breath or confusion come back to see us. You are still sick and can expect several more days of not feeling well.
[2021-12-02 09:23] LABS: BASOPHILS % (AUTO) 0.1 %; EOSINOPHILS # (AUTO) 0.1 10^3/uL (0.0-0.7); EOSINOPHILS % (AUTO) 0.7 %; HCT - HEMATOCRIT 35.8 % (37.0-47.0); HGB - HEMOGLOBIN 11.9 g/dL (12.0-16.0); LYMPHOCYTES # (AUTO) 1.3 10^3/uL (1.5-3.5); LYMPHOCYTES % (AUTO) 17.4 %; MEAN CORPUSCULAR HEMOGLOBIN 33.9 pg (27.0-31.0); MEAN CORPUSCULAR HGB CONC 33.2 g/dL (32.0-36.0); MEAN PLATELET VOLUME 10.6 fL (7.9-10.8); MONOCYTES # (AUTO) 0.4 10^3/uL (0.0-1.0); MONOCYTES % (AUTO) 5.6 %; NEUTROPHILS # (AUTO) 5.8 10^3/uL (1.5-6.6); NEUTROPHILS % (AUTO) 75.8 %; PLT - PLATELET COUNT 88 10^3/uL (130-450); RED BLOOD COUNT 3.51 10^6/uL (4.20-5.40); RED CELL DISTRIBUTION WIDTH 13.7 % (12.0-15.0); WHITE BLOOD COUNT 7.7 x10^3/uL (4.8-10.8)
[2021-12-02 09:35] LABS: ALBUMIN 3.6 g/dL (3.2-5.5); ALBUMIN/GLOBULIN RATIO 0.8 (1.0-2.2); BILIRUBIN,TOTAL 1.1 mg/dL (0.2-1.0); CALCIUM 8.7 mg/dL (8.5-10.3); POTASSIUM 3.3 mmol/L (3.5-5.0); TOTAL PROTEIN 8.2 g/dL (6.7-8.2)
[2021-12-02 09:53] LABS: B. PARAPERTUSSIS- RESP PCR PAN NOT DETECTED; B. PERTUSSIS- RESP PCR PANEL NOT DETECTED; C. PNEUMONIAE- RESP PCR PANEL NOT DETECTED; CORONAVIRUS 229E-RESP PCR NOT DETECTED; CORONAVIRUS HKU1-RESP PCR NOT DETECTED; CORONAVIRUS NL63-RESP PCR NOT DETECTED; CORONAVIRUS OC43-RESP PCR NOT DETECTED; HUMAN METAPNEUMOVIRUS NOT DETECTED; INFLUENZA A- RESP PCR PANEL NOT DETECTED; INFLUENZA B - RESP PCR PANEL NOT DETECTED; M. PNEUMONIAE- RESP PCR PANEL NOT DETECTED; PARAINFLUENZA VIRUS 1 NOT DETECTED; PARAINFLUENZA VIRUS 2 NOT DETECTED; PARAINFLUENZA VIRUS 3 NOT DETECTED; PARAINFLUENZA VIRUS 4 NOT DETECTED; RHINOVIRUS/ENTEROVIRUS NOT DETECTED; RSV- RESP PCR PANEL NOT DETECTED
[2021-12-02 09:57] LABS: SARS-CoV-2 -RESP PCR PANEL DETECTED
[2021-12-02] MEDS ORDERED: DEXAMETHASONE 10 MG/ML VIAL PO STA (09:57)
[2021-12-02] MEDS ORDERED: CHERRY SYRUP 10 ML UDC PO ONE (09:57)
[2021-12-02 11:03] VITALS: BP 139/76
== END 2021-12-02 11:03 | disposition home or self-care (01) ==
LOC: ED 07:44
DX: U07.1 COVID-19 (principal); E11.9 Type 2 diabetes mellitus without complications
CPT/HCPCS: 36415; 71045; 80053; 83690; 85025; 87631; 99282; 99283; A9270; 0202U

== ENCOUNTER 2022-02-24 09:05 | Emergency (ER) | payer MEDICARE, OTHER ==
--- NOTE | 2022-02-24 10:04 | XRAY Report ---
PROCEDURE: Chest 2 View X-Ray INDICATIONS: cough, shortness of air TECHNIQUE: 2 views of the chest. COMPARISON: Chest radiographs 12/02/2021. FINDINGS: Surgical changes and devices: Sternotomy wires and a prosthetic heart valve are noted. The superiormo st sternotomy wire is fractured, which is stable. Surgical clips are seen in the left axilla. Lungs and pleura: A small right pleural effusion is seen with atelectasis of the right lung base. Pro minence of the central pulmonary vasculature is noted. No pneumothorax. Mediastinum: Mediastinal contours are normal. Heart size is enlarged. Bones and chest wall: No suspicious bony abnormalities. Soft tissues appear unremarkable. IMPRESSION: Cardiomegaly with prominence of the pulmonary vasculature and a small right pleural effu johan are most consistent with pulmonary edema and congestive heart failure. Reviewed by: Matheus Ledesma MD on 02/24/2022 10:03 AM PDT Approved by: Matheus Ledesma MD on 02/24/2022 10:03 AM PDT Station ID: [id number]
--- NOTE | 2022-02-24 10:27 | ED Physician Documentation ---
PD HPI DYSPNEA - Stated complaint Stated Complaint: SOA - Chief complaint Chief Complaint: Resp - History obtained from History obtained from: Patient - History of Present Illness Timing - onset: How many weeks ago (has had cough and dyspnea the past week. HAd COVID In December and had improved, but still some mild cough, which has increased the past week.) Timing - onset during: Light activity Timing - duration: Weeks (the past week with increased cough and dyspnea, but has had some element of it since December.) Timing - details: Gradual onset, Still present Inciting event(s): URI. No: Out of meds Improved by: No: Inhaler/neb Associated symptoms: Cough, Wheezing, Chest pain / discomfort (tightness), Bilateral edema (mild chronic, not recently increased.). No: Fever Similar symptoms before: Has not had sx before Recently seen: Not recently seen Review of Systems Constitutional: reports: Myalgias. denies: Fever, Chills Nose: reports: Congestion. denies: Rhinorrhea / runny nose Throat: denies: Sore throat Cardiac: reports: Chest pain / pressure, Pedal edema (mild). denies: Palpitations, Calf pain Respiratory: reports: Dyspnea, Cough, Wheezing GI: denies: Nausea, Vomiting, Diarrhea, Bloody / black stool Skin: denies: Rash Neurologic: reports: Generalized weakness. denies: Near syncope, Altered mental status PD PAST MEDICAL HISTORY - Past Medical History Cardiovascular: Hypertension, High cholesterol, Murmur Respiratory: COPD, Other (prior lung cancer with lower lobectomy) Neuro: None Endocrine/Autoimmune: Type 2 diabetes, HyPOthyroidism GI: GERD AUTO DEALER: None : Other HEENT: None Psych: None Musculoskeletal: Osteoarthritis Derm: None Other Past Medical History: lung cancer, s/p lobectomy - Past Surgical History Past Surgical History: Yes General: Appendectomy /AUTO DEALER: Hysterectomy Cardiovascular: Valve replacement - Present Medications Home Medications: Ambulatory Orders Medication Instructions Recorded Confirmed Levothyroxine [Synthroid] 100 mcg PO QDAC 05/12/16 02/24/22 Anastrozole 1 mg PO DAILY 12/21/17 02/24/22 Fluticasone/Salmeterol [Advair 1 puffs INH BID 04/02/18 02/24/22 500-50 Diskus] Multivitamin [Theragran] 1 tab PO DAILY 04/02/18 02/24/22 Magnesium 1 tab ORAL BID 12/08/19 02/24/22 Torsemide 20 mg PO BID 12/08/19 02/24/22 Ascorbic Acid [Vitamin C] 1 cap PO DAILY 03/26/20 02/24/22 Ubidecarenone [Co Q-10] 100 mg PO DAILY 03/26/20 02/24/22 Aspirin EC [Ecotrin] 81 mg PO DAILY 02/24/22 02/24/22 Benzonatate [Tessalon] 100 mg PO TID PRN #20 cap 02/24/22 carvediloL [Coreg] 0 mg PO BID 02/24/22 02/24/22 dexAMETHasone [Decadron] 4 mg PO DAILY #5 tablet 02/24/22 guaiFENesin [Guaifenesin ER] 600 mg PO BID 5 Days #10 tab 02/24/22 - Allergies Allergies/Adverse Reactions: Allergies Allergy/AdvReac Type Severity Reaction Status Date / Time gentamicin Allergy ototoxicity Verified 02/24/22 09:17 - Social History Does the pt smoke?: No Smoking Status: Former smoker Does the pt drink ETOH?: Yes Does the pt have substance abuse?: No - Immunizations Immunizations are current?: Yes Immunizations: TDAP >10years/unknown - POLST Patient has POLST: No POLST Status: Full Code PD ED PE NORMAL - Vitals Vital signs reviewed: Yes (not hypoxic) - General General: Alert and oriented X 3, No acute distress, Well developed/nourished - HEENT HEENT: Pharynx benign - Neck Neck: Supple, no meningeal sign, No adenopathy, No JVD - Cardiac Cardiac: RRR, No murmur - Respiratory Respiratory: No: Clear bilaterally (no congested sounds. Has some expiratory wheezing and diminished tidal volume. ) - Abdomen Abdomen: Soft, Non tender - Derm Derm: Normal color, Warm and dry - Extremities Extremities: No tenderness to palpate, Normal ROM s pain, No calf tenderness / cord, Other (1+ edema in ankles and lower legs. ) - Neuro Neuro: Alert and oriented X 3, No motor deficit, Normal speech Results - Vitals Vitals: Oxygen O2 Source [Without Activity] Room air O2 Source Room air - Labs Labs: Laboratory Tests 02/24/22 02/24/22 02/24/22 09:22 11:02 11:02 WBC 6.4 RBC 3.20 L Hgb 11.1 L Hct 34.7 L MCV 108.4 H MCH 34.7 H MCHC 32.0 RDW 14.6 Plt Count 39 L MPV 12.5 H Neut # (Auto) 4.5 Lymph # (Auto) 0.9 L Pan[place] # (Auto) 0.8 Eos # (Auto) 0.1 Baso # (Auto) 0.1 Absolute Nucleated RBC 0.00 Nucleated RBC % 0.0 Sodium 141 Potassium 4.2 Chloride 106 Carbon Dioxide 23 Anion Gap 12.0 BUN 29 H Creatinine 2.2 H Estimated GFR (MDRD) 22 L Glucose 119 H Calcium 8.9 Total Bilirubin 1.1 H AST 38 ALT 25 Alkaline Phosphatase 138 H B-Natriuretic Peptide Total Protein 7.9 Albumin 4.0 Globulin 3.9 Albumin/Globulin Ratio 1.0 Lipase 45 Coronavirus (PCR) NEGATIVE 02/24/22 11:02 WBC RBC Hgb Hct MCV MCH MCHC RDW Plt Count MPV Neut # (Auto) Lymph # (Auto) [place] # (Auto) Eos # (Auto) Baso # (Auto) Absolute Nucleated RBC Nucleated RBC % Sodium Potassium Chloride Carbon Dioxide Anion Gap BUN Creatinine Estimated GFR (MDRD) Glucose Calcium Total Bilirubin AST ALT Alkaline Phosphatase B-Natriuretic Peptide 447 H Total Protein Albumin Globulin Albumin/Globulin Ratio Lipase Coronavirus (PCR) - Rads (name of study) chest xray Radiology: Prelim report reviewed (right pleural effusion and enlarged heart with some vascular congestion. ), EMP read contemporaneously (comparison with prior shows chronic effusion. ), See rad report PD MEDICAL DECISION MAKING - ED course Complexity details: re-evaluated patient (improved with neb treatment. PErhaps some element of fluid congestion, but mostly seems COPD flare. ), considered differential (consider reactive airways/bronchial irritation s/p COVID with perhaps new viral URI. Can get CXR TO eval for pneumonia. Eval for CHF.), d/w patient Departure - Departure Disposition: 01 Home, Self Care Clinical Impression: Cough Dyspnea Qualifiers: Dyspnea type: shortness of breath Qualified Code(s): R06.02 - Shortness of breath Exacerbation of asthma Qualifiers: Asthma severity: mild Asthma persistence: intermittent Qualified Code(s): J45.21 - Mild intermittent asthma with (acute) exacerbation Condition: Stable Record reviewed to determine appropriate education?: Yes Instructions: ED Dyspnea Shortness of Breath Follow-Up: Aramis Godfrey MD [Primary Care Provider] - Prescriptions: dexAMETHasone [Decadron] 4 mg PO DAILY #5 tablet guaiFENesin [Guaifenesin ER] 600 mg PO BID 5 Days #10 tab Benzonatate [Tessalon] 100 mg PO TID PRN #20 cap PRN Reason: Cough Comments: No signs of pneumonia on your x-ray. I presume there is some irritation of the bronchials and airways given your cough and wheezing. Continue with your albuterol inhaler 2 to 3 puffs 4 times a day with the spacer regularly for the next week or so. Also add Decadron steroid daily for the next 5 days. This will be more potent than your Advair to help with inflammation in the airways. Tessalon/benzonatate as needed for cough. Also guaifenesin twice daily for the next 5 days to help with congestion. There may be some element of fluid in the lungs as well but it does not look to be the primary cause of your symptoms. You could increase your torsemide to twice daily for the next 3 days and then resume back to the once daily. Recheck if not improving well over the next few days and return if worse. I transmitted your prescriptions to [facility] pharmacy in [place]. Discharge Date/Time: 02/24/22 12:44
[2022-02-24] MEDS ORDERED: ALBUTEROL NEB 2.5 MG/3 ML INH STA (10:48)
[2022-02-24] MEDS ORDERED: DEXAMETHASONE 10 MG/ML VIAL PO STA (10:49)
[2022-02-24] MEDS ORDERED: guaiFENesin 100 MG/5 ML UDC PO STA (10:49)
[2022-02-24] MEDS ORDERED: BENZONATATE 100 MG CAPSULE PO STA (10:49)
[2022-02-24] MEDS ORDERED: CHERRY SYRUP 10 ML UDC PO ONE (10:49)
[2022-02-24 11:09] LABS: BASOPHILS # (AUTO) 0.1 10^3/uL (0.0-0.1); BASOPHILS % (AUTO) 0.8 %; EOSINOPHILS # (AUTO) 0.1 10^3/uL (0.0-0.7); EOSINOPHILS % (AUTO) 1.7 %; HCT - HEMATOCRIT 34.7 % (37.0-47.0); HGB - HEMOGLOBIN 11.1 g/dL (12.0-16.0); LYMPHOCYTES # (AUTO) 0.9 10^3/uL (1.5-3.5); LYMPHOCYTES % (AUTO) 13.8 %; MEAN CORPUSCULAR HEMOGLOBIN 34.7 pg (27.0-31.0); MEAN CORPUSCULAR VOLUME 108.4 fL (81.0-99.0); MEAN PLATELET VOLUME 12.5 fL (7.9-10.8); MONOCYTES # (AUTO) 0.8 10^3/uL (0.0-1.0); MONOCYTES % (AUTO) 12.8 %; NEUTROPHILS # (AUTO) 4.5 10^3/uL (1.5-6.6); NEUTROPHILS % (AUTO) 70.4 %; PLT - PLATELET COUNT 39 10^3/uL (130-450); RED CELL DISTRIBUTION WIDTH 14.6 % (12.0-15.0); WHITE BLOOD COUNT 6.4 x10^3/uL (4.8-10.8)
[2022-02-24 11:20] LABS: BILIRUBIN,TOTAL 1.1 mg/dL (0.2-1.0); CALCIUM 8.9 mg/dL (8.5-10.3); CREATININE 2.2 mg/dL (0.4-1.0); POTASSIUM 4.2 mmol/L (3.5-5.0); TOTAL PROTEIN 7.9 g/dL (6.7-8.2)
[2022-02-24] MEDS ORDERED: FUROSEMIDE 20 MG TABLET PO STA (11:30)
[2022-02-24] MEDS ORDERED: IPRATROPIUM/ALBUTEROL 3 ML NEB INH STA (11:30)
[2022-02-24 12:44] VITALS: BP 170/98
== END 2022-02-24 12:44 | disposition home or self-care (01) ==
LOC: ED 09:05
DX: J45.21 Mild intermittent asthma with (acute) exacerbation (principal); I10 Essential (primary) hypertension; E11.9 Type 2 diabetes mellitus without complications; Z79.84 Long term (current) use of oral hypoglycemic drugs; Z87.891 Personal history of nicotine dependence
CPT/HCPCS: 36415; 71046; 80053; 83690; 83880; 85025; 94640; 94664; 99284; A9270; U0004

== ENCOUNTER 2022-08-25 10:42 | Outpatient (CLI) | payer MEDICARE, OTHER ==
--- NOTE | 2022-08-25 16:57 | XRAY Report ---
PROCEDURE: Chest 2 View X-Ray INDICATIONS: COUGH TECHNIQUE: 2 view(s) of the chest. COMPARISON: None. FINDINGS: Surgical changes and devices: Mediastinum tenotomy wires and prosthetic heart valve are seen. Surgic al clips are noted in left axilla. Lungs and pleura: No pleural effusions or pneumothorax. Hyperinflation is seen, no focal infiltrate. Mediastinum: Mediastinal contours are normal. Heart size is enlarged. Bones and chest wall: No suspicious bony abnormalities. Soft tissues appear unremarkable. IMPRESSION: COPD. Cardiomegaly. No focal infiltrate, significant pleural effusion or pneumothorax. Reviewed by: Praveen Dey MD on 08/25/2022 4:56 PM PDT Approved by: Praveen Dey MD on 08/25/2022 4:56 PM PDT Station ID: [id number]
== END 2022-08-25 10:43 | disposition home or self-care (01) ==
LOC: DI.N 10:42
PROVIDERS: ATTEND Internal Medicine
DX: J44.9 Chronic obstructive pulmonary disease, unspecified (principal)

== ENCOUNTER 2022-09-21 09:10 | Inpatient (IN) | payer MEDICARE, OTHER ==
--- OUTSIDE RECORDS SUMMARY | 2022-09-21 09:37 | EXTERNAL MEDICAL SUMMARY RPT | Continuity of Care Document ---
:1950 Author Organization [facility] Address [address] [place] [address] Phone Allergies No information. Encounters No information. Functional Status No information. Immunizations No information. Medications No information. Problems No information. Procedures No information. Results/Labs test date author facility value unit interpret ation Result panel 1 (unknown) (no (unknown) (unknown) (no value) (units (unk nown) date) unknown) (unknown) (no (unknown) (unknown) +---------+ (units (un known) date) [phone] +--------- unknown) (unknown) (no (unknown) (unknown) +---------+ (units (un known) date) Hospital +--------- unknown) (unknown) (no (unknown) (unknown) + (units (unknown) date) unknown) --- (unknown) (no (unknown) (unknown) 09/09/22 (units (unkno wn) date) unknown) (unknown) (no (unknown) (unknown) [address] [place] [address] (units (unknown) date) unknown) (unknown) (no (unknown) (unknown) 21 mm magna AVR. (units (unknown) date) It demonstrates unknown) moderate aortic stenosis. There is no (unknown) (no (unknown) (unknown) [address] (units (unkno wn) date) unknown) (unknown) (no (unknown) (unknown) 70%. Diastolic (units (unknown) date) function could not unknown) be accurately assessed due to confounding (unknown) (no (unknown) (unknown) : : 1211 . (units (unknown) date) : : unknown) (unknown) (no (unknown) (unknown) : : [address] : : (units ( unknown) date) unknown) (unknown) (no (unknown) (unknown) : : JUAN CARLOS Watson (units (unknown) date) : : unknown) (unknown) (no (unknown) (unknown) : : Phone: [phone] (units (unknown) date) : unknown) (unknown) (no (unknown) (unknown) :Account #: (units (un known) date) [id number] Gender: unknown) Female BSA: 1.8 m2 : (unknown) (no (unknown) (unknown) :DISEASE : (units (unk nown) date) unknown) (unknown) (no (unknown) (unknown) :: 1950 (units (unknown) date) Age: 71 yrs BP: unknown) 128/65 mmHg: (unknown) (no (unknown) (unknown) :Hospital MRN #: (units (unknown) date) [id number] unknown) ReadingLocation: Weight: 176 lb : (unknown) (no (unknown) (unknown) :Name: GÓMEZ WALLS (units (unknown) date) R Study Date: unknown) 09/09/2022 Height: 63 in : (unknown) (no (unknown) (unknown) :Ordering (units (unkn own) date) Physician: unknown) EMEKA, : (unknown) (no (unknown) (unknown) :TOY Castillo (units (unkn own) date) Performed By: unknown) Franny Carter : (unknown) (no (unknown) (unknown) :Reason For Study: (units (unknown) date) HYPERTENSIVE HEART unknown) AND CHRONIC KIDNEY : (unknown) (no (unknown) (unknown) :Referring: (units (un known) date) TOY HENDRICKSON unknown) : (unknown) (no (unknown) (unknown) sev ratio: 0.30 (units (unknown) date) unknown) (unknown) (no (unknown) (unknown) CATALINA indexed to BSA (units (unknown) date) (cm2/m2): 0.51 unknown) (unknown) (no (unknown) (unknown) Accession Number: (units (unknown) date) [id number] unknown) (unknown) (no (unknown) (unknown) Age/Sex: 71 / F (units (unknown) date) Date of Service: unknown) (unknown) (no (unknown) (unknown) [place], [place] (units ( unknown) date) [id number] unknown) (unknown) (no (unknown) (unknown) Ao V2 VTI: 75.3 cm (units (unknown) date) CATALINA(V,D): 0.87 cm2 unknown) (unknown) (no (unknown) (unknown) Ao V2 max: 350.4 (units (unknown) date) cm/sec LVOT Max unknown) Delvis: 99.7 cm/sec (unknown) (no (unknown) (unknown) Ao V2 mean: 221.3 (units (unknown) date) cm/sec LV V1 max unknown) P.0 mmHg (unknown) (no (unknown) (unknown) Ao max P.1 (units (unknown) date) mmHg LV V1 VTI: unknown) 22.9 cm (unknown) (no (unknown) (unknown) Ao mean P.2 (units (unknown) date) mmHg CATALINA(I,D): 0.93 unknown) cm2 (unknown) (no (unknown) (unknown) Aortic Valve: (units ( unknown) date) There is a unknown) bioprosthetic aortic valve. The peak aortic (unknown) (no (unknown) (unknown) Atria: The left (units (unknown) date) atrium is severely unknown) dilated. The right atrium is severely (unknown) (no (unknown) (unknown) By history patient (units (unknown) date) is status post unknown) aortic valve replacement with a pericardial (unknown) (no (unknown) (unknown) By history patient (units (unknown) date) underwent mitral unknown) valve annuloplasty and [id number]-tm-ygyo repair (unknown) (no (unknown) (unknown) Compared to prior (units (unknown) date) echo a 04/24/2022, unknown) filamentous lesion on the ventricular (unknown) (no (unknown) (unknown) Comparison is made (units (unknown) date) with the unknown) echocardiogram of 04/24/2022. The patient was in (unknown) (no (unknown) (unknown) : 1950 (units (unknown) date) Acct:[id number] unknown) (unknown) (no (unknown) (unknown) Doppler (units (unkno wn) date) Measurements + unknown) Calculations (unknown) (no (unknown) (unknown) Echocardiogram (units (unknown) date) Report unknown) (unknown) (no (unknown) (unknown) Echocardiography (units (unknown) date) Report unknown) (unknown) (no (unknown) (unknown) Electronically (units (unknown) date) signed by: Evelyn unknown) Tiffany Guzman on (unknown) (no (unknown) (unknown) FS: 32.4 % Ao Arch (units (unknown) date) Diam (Prox Trans): unknown) 2.4 cm (unknown) (no (unknown) (unknown) Great Vessels: The (units (unknown) date) aortic root is not unknown) well visualized. The dimensions of the (unknown) (no (unknown) (unknown) IVSd: 1.1 cm (units (u nknown) date) unknown) (unknown) (no (unknown) (unknown) Interpretation (units (unknown) date) Summary unknown) (unknown) (no (unknown) (unknown) [facility] (units (unknown) date) unknown) (unknown) (no (unknown) (unknown) [place] (units (unkno wn) date) unknown) (unknown) (no (unknown) (unknown) [place] A2 area: 32.4 (units (unknown) date) cm2 RA long axis: unknown) 6.2 cm (unknown) (no (unknown) (unknown) [place] A4 area: 30.6 (units (unknown) date) cm2 RA area: 24.8 unknown) cm2 (unknown) (no (unknown) (unknown) LA length (vol): (units (unknown) date) 6.9 cm RA vol: 85.3 unknown) ml (unknown) (no (unknown) (unknown) LA vol index: 66.6 (units (unknown) date) ml/m2 IVC diam: 2.7 unknown) cm (unknown) (no (unknown) (unknown) LA vol: 122.0 ml (units (unknown) date) RA : 46.6 ml/m2 unknown) (unknown) (no (unknown) (unknown) LV brown. (units (unkno wn) date) diameter/BSA unknown) (cm/m2): 2.7 (unknown) (no (unknown) (unknown) LV sys. (units (unkno wn) date) diameter/BSA unknown) (cm/m2): 1.9 (unknown) (no (unknown) (unknown) LVIDd: 5.0 cm LVOT (units (unknown) date) diam: 2.0 cm unknown) (unknown) (no (unknown) (unknown) LVIDs: 3.4 cm asc (units (unknown) date) Aorta Diam: 3.1 cm unknown) (unknown) (no (unknown) (unknown) LVPWd: 0.95 cm (units (unknown) date) unknown) (unknown) (no (unknown) (unknown) Lampron procedure (units (unknown) date) in 2019 and valve unknown) in valve replacement complicated by valve (unknown) (no (unknown) (unknown) Lat Peak E' Delvis: (units (unknown) date) 6.1 cm/sec TR max unknown) P.1 mmHg (unknown) (no (unknown) (unknown) Left Ventricle: (units (unknown) date) The left ventricle unknown) is normal in size. Left ventricular wall (unknown) (no (unknown) (unknown) Loc: ECHO (units (unkn own) date) unknown) (unknown) (no (unknown) (unknown) MMode/2D (units (unkno wn) date) Measurements + unknown) Calculations (unknown) (no (unknown) (unknown) MV V2 VTI: 77.9 cm (units (unknown) date) unknown) (unknown) (no (unknown) (unknown) MV V2 mean: 129.1 (units (unknown) date) cm/sec SV(LVOT): unknown) 70.2 ml (unknown) (no (unknown) (unknown) MV mean P.1 (units (unknown) date) mmHg unknown) (unknown) (no (unknown) (unknown) MVA(VTI): 0.90 cm2 (units (unknown) date) PA V2 max: 127.5 unknown) cm/sec (unknown) (no (unknown) (unknown) Med Peak E' Delvis: (units (unknown) date) 5.0 cm/sec TR max unknown) delvis: 357.5 cm/sec (unknown) (no (unknown) (unknown) Mitral Valve: (units ( unknown) date) There is an unknown) echogenic independently mobile filamentous lesion (unknown) (no (unknown) (unknown) Normal LV size and (units (unknown) date) wall thickness. unknown) Ejection fraction is 65-70%. (unknown) (no (unknown) (unknown) Normal sinus (units (u nknown) date) rhythm. unknown) (unknown) (no (unknown) (unknown) Ordering Provider: (units (unknown) date) Toy Hendrickson MD unknown) (unknown) (no (unknown) (unknown) PA V2 mean: 81.7 (units (unknown) date) cm/sec unknown) (unknown) (no (unknown) (unknown) PA mean P.1 (units (unknown) date) mmHg unknown) (unknown) (no (unknown) (unknown) PA pr(Accel): 46.5 (units (unknown) date) mmHg unknown) (unknown) (no (unknown) (unknown) PASP is stable at (units (unknown) date) 59 mm Hg. Tricuspid unknown) regurgitation looks worse. (unknown) (no (unknown) (unknown) Patient: (units (unkno wn) date) Gómez Walls MR#: unknown) [id number] (unknown) (no (unknown) (unknown) Pericardium/ (units (u nknown) date) Pleura There is no unknown) pericardial effusion. There is no pleural (unknown) (no (unknown) (unknown) Procedure: A (units (u nknown) date) two-dimensional unknown) transthoracic echocardiogram with color flow (unknown) (no (unknown) (unknown) Procedure: EC echo (units (unknown) date) doppler complete unknown) (unknown) (no (unknown) (unknown) Pulmonic Valve: (units (unknown) date) The pulmonic valve unknown) leaflets are thin and pliable; valve (unknown) (no (unknown) (unknown) RVD1 (basal): 4.4 (units (unknown) date) cm unknown) (unknown) (no (unknown) (unknown) RVD2 (mid): 3.7 cm (units (unknown) date) unknown) (unknown) (no (unknown) (unknown) Reading (units (unkno wn) date) Physician: unknown) 2 05:59 AM (unknown) (no (unknown) (unknown) Right Ventricle: (units (unknown) date) The right ventricle unknown) is mildly dilated. The right (unknown) (no (unknown) (unknown) Signed (units (unkno wn) date) unknown) (unknown) (no (unknown) (unknown) TAPSE: 1.7 cm (units ( unknown) date) unknown) (unknown) (no (unknown) (unknown) There is an (units (un known) date) echogenic unknown) independently mobile filamentous lesion on the (unknown) (no (unknown) (unknown) Tricuspid Valve: (units (unknown) date) The tricuspid valve unknown) leaflets are thin and pliable. There is (unknown) (no (unknown) (unknown) (units (unknown) date) unknown) ___ (unknown) (no (unknown) (unknown) across the aortic (units (unknown) date) valve decreased unknown) from 3.9 m/sec to 3.5 m/sec. (unknown) (no (unknown) (unknown) and Doppler was (units (unknown) date) performed. The unknown) study quality was technically adequate. (unknown) (no (unknown) (unknown) ascending aorta (units (unknown) date) are normal. The IVC unknown) is dilated (diameter is greater than 2.1 (unknown) (no (unknown) (unknown) aspect of the (units ( unknown) date) mitral valve is unknown) stable. Aortic stenosis is stable. Peak velocity (unknown) (no (unknown) (unknown) atrial pressure of (units (unknown) date) 8 mm Hg. unknown) (unknown) (no (unknown) (unknown) calculated aortic (units (unknown) date) valve area is 0.87 unknown) cm2. There is trace aortic regurgitation. (unknown) (no (unknown) (unknown) cm) yet it (units (unk nown) date) collapses greater unknown) than 50% with a sniff. This suggests a right (unknown) (no (unknown) (unknown) dilated. (units (unkno wn) date) unknown) (unknown) (no (unknown) (unknown) effusion. (units (unkn own) date) unknown) (unknown) (no (unknown) (unknown) in 2015 (units (unkno wn) date) complicated by unknown) severe mitral stenosis. Unfortunately, she required (unknown) (no (unknown) (unknown) migration (units (unkn own) date) unknown) (unknown) (no (unknown) (unknown) mitral (units (unkno wn) date) regurgitation. unknown) (unknown) (no (unknown) (unknown) mitral stenosis. (units (unknown) date) Mean gradient is 8 unknown) mm He. There is mild-moderate central (unknown) (no (unknown) (unknown) mitral valve. The (units (unknown) date) mitral valve mean unknown) gradient is 8.1 mmHg. There is mild to (unknown) (no (unknown) (unknown) moderate mitral (units (unknown) date) regurgitation. unknown) (unknown) (no (unknown) (unknown) moderate to severe (units (unknown) date) tricuspid unknown) regurgitation. The right ventricular systolic (unknown) (no (unknown) (unknown) motion is normal. (units (unknown) date) There is mild unknown) pulmonic regurgitation. (unknown) (no (unknown) (unknown) on the ventricular (units (unknown) date) side of anterior unknown) mitral leaflet. There is a mechanical (unknown) (no (unknown) (unknown) pressure is (units (un known) date) estimated to be at unknown) least 59 mmHg based on an estimated right (unknown) (no (unknown) (unknown) prosthesis (units (unk nown) date) rocking. No unknown) paravalvular leak. (unknown) (no (unknown) (unknown) sinus bradycardia (units (unknown) date) with heart rates unknown) between 58-65 bpm during the exam. (unknown) (no (unknown) (unknown) status post second (units (unknown) date) ROCAEL 26 mitral unknown) valve placement. (unknown) (no (unknown) (unknown) thickness is (units (u nknown) date) mildly increased. unknown) The ejection fraction is estimated to be 65 (unknown) (no (unknown) (unknown) valvular disease. (units (unknown) date) unknown) (unknown) (no (unknown) (unknown) velocity is 3.5 (units (unknown) date) m/sec. The aortic unknown) valve mean gradient is 26 mmHg. The (unknown) (no (unknown) (unknown) ventricular side (units (unknown) date) of anterior mitral unknown) leaflet. There is moderate associated (unknown) (no (unknown) (unknown) ventricular (units (un known) date) systolic function unknown) is normal. Social History No information. Vital Signs No information.
--- NOTE | 2022-09-21 09:40 | XRAY Report ---
PROCEDURE: Chest 2 View X-Ray INDICATIONS: cough TECHNIQUE: 2 views of the chest were obtained. COMPARISON: None. FINDINGS: Cardiomediastinal silhouette is enlarged. Bibasilar opacities are present as well as blunting of the left costophrenic angle.. No pneumothorax. Osseous and soft tissue structures are unremarkable. Gutierres al wires including stable fractured superior sternal wire is unchanged. Valve replacement is noted. IMPRESSION: Cardiomegaly with appearance of increased vascularity suggestive of edema. Bibasilar opacities including blunting of the right costophrenic angle are present. Findings are sugg estive of effusions. Superimposed areas of developing pneumonia and/or atelectasis cannot be excluded . Reviewed by: Rivka Armijo MD on 09/21/2022 9:38 AM [facility] Approved by: Rivka Armijo MD on 09/21/2022 9:38 AM [facility] Station ID: [id number]
--- NOTE | 2022-09-21 10:38 | ED Physician Documentation ---
History of Present Illness - Stated complaint Stated Complaint: FEVER/WEAKNESS - Chief complaint Chief Complaint: Resp - Additonal information Additional information: Patient 71-year-old female presenting to the emergency department with shortness of breath. Symptoms ongoing x1 week. Past medical significant for hypertension, dyslipidemia, COPD, Breast CA,aortic and mitral valve replacements. Reports initially had cough and congestion which she attributed to an upper respiratory tract infection. Stated that her kids Grandchildren were having similar symptoms. Reports increasing shortness of breath at home. He denies weight gain or lower extremity swelling. Reports chest pain that is associated with coughing and reports that her sputum seems "pink- tinged".Endorses for nausea without vomiting and decreased p.o. intake x2 days. States has had a "small" amount of diarrhea. Review of Systems Ten Systems: 10 systems reviewed and negative Constitutional: reports: Fever, Chills, Fatigue Eyes: denies: Loss of vision Ears: denies: Loss of hearing Nose: reports: Congestion Throat: denies: Sore throat Cardiac: reports: Chest pain / pressure Respiratory: reports: Dyspnea, Cough GI: reports: Nausea, Diarrhea. denies: Abdominal Pain, Vomiting : denies: Dysuria Skin: denies: Rash PD PAST MEDICAL HISTORY - Past Medical History Cardiovascular: Hypertension, High cholesterol, Murmur Respiratory: COPD, Other (prior lung cancer with lower lobectomy) Neuro: None Endocrine/Autoimmune: Type 2 diabetes, HyPOthyroidism GI: GERD PAN HELPER: None : Other HEENT: None Psych: None Musculoskeletal: Osteoarthritis Derm: None - Past Surgical History Past Surgical History: Yes General: Appendectomy /PAN HELPER: Hysterectomy Cardiovascular: Valve replacement - Present Medications Home Medications: Ambulatory Orders Medication Instructions Recorded Confirmed Levothyroxine [Synthroid] 100 mcg PO QDAC 05/12/16 05/12/22 Anastrozole 1 mg PO DAILY 12/21/17 05/12/22 Fluticasone/Salmeterol [Advair 1 puffs INH BID 04/02/18 05/12/22 500-50 Diskus] Multivitamin [Theragran] 1 tab PO DAILY 04/02/18 05/12/22 Magnesium 1 tab ORAL BID 12/08/19 05/12/22 Torsemide 20 mg PO BID 12/08/19 05/12/22 Ascorbic Acid [Vitamin C] 1 cap PO DAILY 03/26/20 05/12/22 Ubidecarenone [Co Q-10] 100 mg PO DAILY 03/26/20 05/12/22 Aspirin EC [Ecotrin] 81 mg PO DAILY 02/24/22 05/12/22 Benzonatate [Tessalon] 100 mg PO TID PRN #20 cap 02/24/22 05/12/22 carvediloL [Coreg] 0 mg PO BID 02/24/22 05/12/22 dexAMETHasone [Decadron] 4 mg PO DAILY #5 tablet 02/24/22 05/12/22 guaiFENesin [Guaifenesin ER] 600 mg PO BID 5 Days #10 tab 02/24/22 05/12/22 - Allergies Allergies/Adverse Reactions: Allergies Allergy/AdvReac Type Severity Reaction Status Date / Time gentamicin Allergy ototoxicity Verified 09/21/22 09:19 - Social History Does the pt smoke?: No Smoking Status: Former smoker Does the pt drink ETOH?: Yes Does the pt have substance abuse?: No - Immunizations Immunizations are current?: Yes Immunizations: TDAP >10years/unknown - POLST Patient has POLST: No POLST Status: Full Code PD ED PE NORMAL - Vitals Vital signs reviewed: Yes (Tachycardic, tachypneic) - General General: Alert and oriented X 3, No acute distress - HEENT HEENT: Atraumatic, PERRL, EOMI, Moist mucous membranes - Neck Neck: Supple, no meningeal sign - Cardiac Cardiac: RRR - Respiratory Respiratory: Other (Bilateral rhonchi) - Abdomen Abdomen: Normal bowel sounds, Non tender - Female Female : Deferred - Rectal Rectal: Deferred - Derm Derm: Normal color - Extremities Extremities: No deformity - Neuro Neuro: Alert and oriented X 3, civil structural designer 2-12 intact, No motor deficit, No sensory deficit, Normal speech Results - Vitals Vitals: Vital Signs - 24 hr 09/21/22 09/21/22 09/21/22 09:16 12:00 13:25 Temperature 37.2 C Heart Rate 140 H 137 H Respiratory 26 H 24 Rate Blood Pressure 125/64 107/70 O2 Saturation 93 91 L 94 If not protocol : Oxygen Flow, liters/minute 09/21/22 15:00 Temperature Heart Rate 143 H Respiratory 26 H Rate Blood Pressure 151/86 H O2 Saturation 92 If not protocol 2 : Oxygen Flow, liters/minute Oxygen O2 Source [Without Activity] Room air O2 Source Nasal cannula - EKG (time done) 1009 Rate: Rate (enter#) (134) Rhythm: NSR [place]: Normal Intervals: Normal OR, QRS normal. No: Prolonged QT Ischemia: ST depression, Non specific changes Compare to prior EKG: Changed from prior EKG - Labs Labs: Laboratory Tests 09/21/22 09/21/22 09/21/22 10:26 10:26 10:26 WBC 11.9 H RBC 3.13 L Hgb 10.4 L Hct 32.6 L MCV 104.2 H MCH 33.2 H MCHC 31.9 L RDW 18.6 H Plt Count 88 L MPV 11.5 H Neut # (Auto) Not Reportable Lymph # (Auto) Not Reportable Cherry # (Auto) Not Reportable Eos # (Auto) Not Reportable Baso # (Auto) Not Reportable Absolute Nucleated RBC Not Reportable Total Counted 100 Band Neuts % (Manual) 5 Abnorm Lymph % (Manual) 0 Nucleated RBC % Not Reportable Neutrophils # (Manual) 10.9 H Lymphocytes # (Manual) 0.6 L Monocytes # (Manual) 0.4 Eosinophils # (Manual) 0.0 Basophils # (Manual) 0.0 Differential Comment MANUAL DIFFERENTIAL Platelet Estimate NORMAL (130-450,000) Platelet Morphology NORMAL APPEARANCE RBC Morph Micro Appear NORMAL APPEARANCE PT 14.7 H INR 1.3 H Sodium 138 Potassium 3.3 L Chloride 103 Carbon Dioxide 22 Anion Gap 13.0 BUN 41 H Creatinine 2.5 H Estimated GFR (MDRD) 19 L Glucose 190 H Lactic Acid Calcium 8.3 L Total Bilirubin 1.1 H AST 43 H ALT 23 Alkaline Phosphatase 91 Troponin I High Sens B-Natriuretic Peptide Total Protein 6.8 Albumin 3.3 Globulin 3.5 Albumin/Globulin Ratio 0.9 L Lipase 25 Urine Color Urine Clarity Urine pH Ur Specific [place] Urine Protein Urine Glucose (UA) Urine Ketones Urine Occult Blood Urine Nitrite Urine Bilirubin Urine Urobilinogen Ur Leukocyte Esterase Urine RBC Urine WBC Ur Squamous Epith Cells Amorphous Sediment Urine Bacteria Urine Casts Ur Microscopic Review Urine Culture Comments Nasal Adenovirus (PCR) Nasal B. parapertussis DNA (PCR) Nasal Coronavir 229E PCR Nasal Coronavir HKU1 PCR Nasal Coronavir NL63 PCR Nasal Coronavir OC43 PCR Nasal Enterovir/Rhinovir PCR Nasal Influenza B PCR Nasal Influenza A PCR Nasal Parainfluen 1 PCR Nasal Parainfluen 2 PCR Nasal Parainfluen 3 PCR Nasal Parainfluen 4 PCR Nasal RSV (PCR) Nasal B.pertussis DNA PCR Nasal C.pneumoniae (PCR) Kris Human Metapneumo PCR Nasal M.pneumoniae (PCR) Nasal SARS-CoV-2 (PCR) 09/21/22 09/21/22 09/21/22 10:26 10:26 10:26 WBC RBC Hgb Hct MCV MCH MCHC RDW Plt Count MPV Neut # (Auto) Lymph # (Auto) Cherry # (Auto) Eos # (Auto) Baso # (Auto) Absolute Nucleated RBC Total Counted Band Neuts % (Manual) Abnorm Lymph % (Manual) Nucleated RBC % Neutrophils # (Manual) Lymphocytes # (Manual) Monocytes # (Manual) Eosinophils # (Manual) Basophils # (Manual) Differential Comment Platelet Estimate Platelet Morphology RBC Morph Micro Appear PT INR Sodium Potassium Chloride Carbon Dioxide Anion Gap BUN Creatinine Estimated GFR (MDRD) Glucose Lactic Acid 2.9 H Calcium Total Bilirubin AST ALT Alkaline Phosphatase Troponin I High Sens 79.1 H* B-Natriuretic Peptide 786 H Total Protein Albumin Globulin Albumin/Globulin Ratio Lipase Urine Color Urine Clarity Urine pH Ur Specific [place] Urine Protein Urine Glucose (UA) Urine Ketones Urine Occult Blood Urine Nitrite Urine Bilirubin Urine Urobilinogen Ur Leukocyte Esterase Urine RBC Urine WBC Ur Squamous Epith Cells Amorphous Sediment Urine Bacteria Urine Casts Ur Microscopic Review Urine Culture Comments Nasal Adenovirus (PCR) Nasal B. parapertussis DNA (PCR) Nasal Coronavir 229E PCR Nasal Coronavir HKU1 PCR Nasal Coronavir NL63 PCR Nasal Coronavir OC43 PCR Nasal Enterovir/Rhinovir PCR Nasal Influenza B PCR Nasal Influenza A PCR Nasal Parainfluen 1 PCR Nasal Parainfluen 2 PCR Nasal Parainfluen 3 PCR Nasal Parainfluen 4 PCR Nasal RSV (PCR) Nasal B.pertussis DNA PCR Nasal C.pneumoniae (PCR) Kris Human Metapneumo PCR Nasal M.pneumoniae (PCR) Nasal SARS-CoV-2 (PCR) 09/21/22 09/21/22 09/21/22 10:30 10:45 12:53 WBC RBC Hgb Hct MCV MCH MCHC RDW Plt Count MPV Neut # (Auto) Lymph # (Auto) Cherry # (Auto) Eos # (Auto) Baso # (Auto) Absolute Nucleated RBC Total Counted Band Neuts % (Manual) Abnorm Lymph % (Manual) Nucleated RBC % Neutrophils # (Manual) Lymphocytes # (Manual) Monocytes # (Manual) Eosinophils # (Manual) Basophils # (Manual) Differential Comment Platelet Estimate Platelet Morphology RBC Morph Micro Appear PT INR Sodium Potassium Chloride Carbon Dioxide Anion Gap BUN Creatinine Estimated GFR (MDRD) Glucose Lactic Acid Calcium Total Bilirubin AST ALT Alkaline Phosphatase Troponin I High Sens 77.0 H* B-Natriuretic Peptide Total Protein Albumin Globulin Albumin/Globulin Ratio Lipase Urine Color YELLOW Urine Clarity HAZY Urine pH 5.5 Ur Specific [place] 1.020 Urine Protein 30 H Urine Glucose (UA) NEGATIVE Urine Ketones NEGATIVE Urine Occult Blood TRACE-INTA Urine Nitrite NEGATIVE Urine Bilirubin NEGATIVE Urine Urobilinogen 0.2 (NORMAL) Ur Leukocyte Esterase NEGATIVE Urine RBC 0-5 Urine WBC 0-3 Ur Squamous Epith Cells RARE Squamous Amorphous Sediment Few Urine Bacteria Rare Urine Casts 3-5 Granular Casts Ur Microscopic Review INDICATED Urine Culture Comments NOT INDICATED Nasal Adenovirus (PCR) NOT DETECTED Nasal B. parapertussis DNA (PCR) NOT DETECTED Nasal Coronavir 229E PCR NOT DETECTED Nasal Coronavir HKU1 PCR NOT DETECTED Nasal Coronavir NL63 PCR NOT DETECTED Nasal Coronavir OC43 PCR NOT DETECTED Nasal Enterovir/Rhinovir PCR NOT DETECTED Nasal Influenza B PCR NOT DETECTED Nasal Influenza A PCR NOT DETECTED Nasal Parainfluen 1 PCR DETECTED A Nasal Parainfluen 2 PCR NOT DETECTED Nasal Parainfluen 3 PCR NOT DETECTED Nasal Parainfluen 4 PCR NOT DETECTED Nasal RSV (PCR) DETECTED A Nasal B.pertussis DNA PCR NOT DETECTED Nasal C.pneumoniae (PCR) NOT DETECTED Kris Human Metapneumo PCR NOT DETECTED Nasal M.pneumoniae (PCR) NOT DETECTED Nasal SARS-CoV-2 (PCR) NOT DETECTED PD MEDICAL DECISION MAKING - ED course Complexity details: reviewed results, re-evaluated patient, d/w patient ED course: Patient 71-year-old female presenting to the emergency department with shortness of breath, cough, Subjective fever. Afebrile, tachycardic And tachypneic but otherwise hemodynamically stable on arrival to the emergency department. Chest x-ray performed here in the emergency department demonstrated edema, with bilateral effusions. No clear pneumonia however this cannot be ruled out per radiology report. Antibiotics ordered. Patient did have a local area reaction to Zithromax. This medication was transitioned to doxycycline. Renal function is at baseline. Patient had low level elevation in troponin which did not Change significantly on repeat. Did have some increased work of breathing and respiratory therapy started on BiPAP. Consulted with hospitalist service who agreed to hospitalize the patient for further evaluation and treatment. Departure - Departure Disposition: 66 [facility] DC/Xfer Clinical Impression: CHF exacerbation, PNA (pneumonia), Chronic renal insufficiency, Hypokalemia Discharge Date/Time: 09/21/22 17:40
[2022-09-21 10:39] LABS: BASOPHILS % (AUTO) 0.8 %; EOSINOPHILS % (AUTO) 2.3 %; HCT - HEMATOCRIT 32.6 % (37.0-47.0); HGB - HEMOGLOBIN 10.4 g/dL (12.0-16.0); LYMPHOCYTES % (AUTO) 6.1 %; MEAN CORPUSCULAR HEMOGLOBIN 33.2 pg (27.0-31.0); MEAN CORPUSCULAR HGB CONC 31.9 g/dL (32.0-36.0); MEAN CORPUSCULAR VOLUME 104.2 fL (81.0-99.0); MEAN PLATELET VOLUME 11.5 fL (7.9-10.8); MONOCYTES % (AUTO) 3.4 %; PLT - PLATELET COUNT 88 10^3/uL (130-450); RED BLOOD COUNT 3.13 10^6/uL (4.20-5.40); RED CELL DISTRIBUTION WIDTH 18.6 % (12.0-15.0); WHITE BLOOD COUNT 11.9 x10^3/uL (4.8-10.8)
[2022-09-21 10:41] LABS: ABNORMAL LYMPHS % (MANUAL) 0 %
[2022-09-21 10:42] LABS: INR 1.3 (0.8-1.2); PT - PROTHROMBIN TIME 14.7 secs (9.9-12.6)
[2022-09-21 10:54] LABS: BILIRUBIN,URINE NEGATIVE (NEGATIVE); GLUCOSE, URINE (UA) NEGATIVE (NEGATIVE); KETONES,URINE (UA) NEGATIVE (NEGATIVE); LEUKOCYTE ESTERASE, URINE NEGATIVE (NEGATIVE); NITRITE,URINE NEGATIVE (NEGATIVE); OCCULT BLOOD,URINE TRACE-INTA (NEGATIVE); PH,URINE 5.5 PH (5.0-7.5); PROTEIN,URINE 30 mg/dL (NEGATIVE); UROBILINOGEN,URINE 0.2 (NORMAL) E.U./dL (NORMAL)
[2022-09-21 10:54] LABS: ALBUMIN 3.3 g/dL (3.2-5.5); ALBUMIN/GLOBULIN RATIO 0.9 (1.0-2.2); BILIRUBIN,TOTAL 1.1 mg/dL (0.2-1.0); CALCIUM 8.3 mg/dL (8.5-10.3); CREATININE 2.5 mg/dL (0.4-1.0); POTASSIUM 3.3 mmol/L (3.5-5.0); TOTAL PROTEIN 6.8 g/dL (6.7-8.2)
[2022-09-21] MEDS ORDERED: AZITHROMYCIN INJ 500 MG in SODIUM CHLORIDE 0.9% 250 ML IV STA (10:56)
[2022-09-21] MEDS ORDERED: cefTRIAXone 1 GM VIAL IVP STA (10:56)
[2022-09-21 10:57] LABS: CLARITY,URINE HAZY (CLEAR)
[2022-09-21] MEDS ORDERED: FUROSEMIDE 20 MG/2 ML VIAL IVP STA ×2 (11:02→15:46)
[2022-09-21 11:14] LABS: BAND NEUTROPHILS % (MANUAL) 5 %; LYMPHOCYTES # (MANUAL) 0.6 10^3/uL (1.5-3.5); LYMPHOCYTES % (MANUAL) 5 %; MONOCYTES # (MANUAL) 0.4 10^3/uL (0.0-1.0); NEUTROPHILS # (MANUAL) 10.9 10^3/uL (1.5-6.6); PLATELET ESTIMATE, MANUAL NORMAL (130-450,000) (NORMAL); PLATELET MORPHOLOGY NORMAL APPEARANCE (NORMAL); RBC MORPHOLOGY (MULTIPLE) NORMAL APPEARANCE (NORMAL)
[2022-09-21 11:15] LABS: DIFFERENTIAL COMMENT MANUAL DIFFERENTIAL
[2022-09-21 11:28] LABS: AMORPHOUS SEDIMENT,UR Few /LPF; BACTERIA,URINE Rare /HPF (None Seen); CASTS, URINE 3-5 Granular Casts /LPF; RBC,URINE 0-5 /HPF (0-5); SQUAMOUS EPITHELIAL CELL,UR RARE Squamous (<= Few); WBC,URINE 0-3 /HPF (0-5)
[2022-09-21] MEDS ORDERED: DOXYCYCLINE INJ 100 MG in SODIUM CHLORIDE 0.9% MINIBAG 100 ML IV STA (11:43)
[2022-09-21 11:59] LABS: B. PARAPERTUSSIS- RESP PCR PAN NOT DETECTED; B. PERTUSSIS- RESP PCR PANEL NOT DETECTED; C. PNEUMONIAE- RESP PCR PANEL NOT DETECTED; CORONAVIRUS 229E-RESP PCR NOT DETECTED; CORONAVIRUS HKU1-RESP PCR NOT DETECTED; CORONAVIRUS NL63-RESP PCR NOT DETECTED; CORONAVIRUS OC43-RESP PCR NOT DETECTED; HUMAN METAPNEUMOVIRUS NOT DETECTED; INFLUENZA A- RESP PCR PANEL NOT DETECTED; INFLUENZA B - RESP PCR PANEL NOT DETECTED; M. PNEUMONIAE- RESP PCR PANEL NOT DETECTED; PARAINFLUENZA VIRUS 1 DETECTED; PARAINFLUENZA VIRUS 2 NOT DETECTED; PARAINFLUENZA VIRUS 3 NOT DETECTED; PARAINFLUENZA VIRUS 4 NOT DETECTED; RHINOVIRUS/ENTEROVIRUS NOT DETECTED; RSV- RESP PCR PANEL DETECTED; SARS-CoV-2 -RESP PCR PANEL NOT DETECTED
[2022-09-21] MEDS: POTASSIUM CHLOR 10 MEQ/100 ML 10 MEQ/100 ML BAG IV SCH ×6 (11:59→22:58)
[2022-09-21] MEDS ORDERED: ACETAMINOPHEN 325 MG TABLET PO PRN (15:37)
[2022-09-21] MEDS ORDERED: ONDANSETRON 4 MG/2 ML VIAL IVP PRN (15:37)
[2022-09-21] MEDS ORDERED: PROCHLORPERAZINE 10 MG/2 ML VIAL IVP PRN (15:37)
[2022-09-21] MEDS ORDERED: LEVALBUTEROL 1.25 MG/3 ML NEB INH PRN (15:48)
--- NOTE | 2022-09-21 15:58 | HISTORY & PHYSICAL EXAMINATION ---
Chief Complaint - Chief Complaint Chief Complaint: SOB History of Present Illness - Admitted From Admitted From:: ED - History Obtained From History obtained from: ED provider and the patient - History of Present Illness HPI Comment/Other: This is a 71-year-old female with a history of lung cancer status post RLL lobectomy and chemotherapy, diabetes mellitus diet controlled, CKD grade 4 with baseline creatinine 2.2, anemia of chronic disease, previous thrombocytopenia, C OPD not on home oxygen, history of TAVR and mitral valve repair, Hx of endocarditis, and history of breast cancer followed by Dr White in [facility]. Her Lidar Analyst is Dr. Evelyn Allen and last Echo done about a year ago showed normal LVEF and normally functioning bioprosthetic aortic valve. Her Stitching Machine Operator is Dr Leach. Patient been having a cough with shortness of breath and a fever at home for approximately a week. She said she got a URI from her grandchildren. She reports worsening shortness of breath and pleuritic chest pain with coughing. Now there have been 2 days of nausea vomiting and diarrhea. Because of feeling worse the last 2 days she came to the ER. In the ER she is found to have oxygen saturations of 91% on room air, resp rate 26, and was started on 2 L of O2 by nasal cannula. Blood pressure was stable but heart rate is 120-140 and ED provider thought it was from missing her B-lakshmi dose due to N.V. Her chest x-ray was done and shows pulmonary edema as well as bilateral opacities. Her lung exam showed rhonchi and wheezing. She started to receive IV antibiotics of Rocephin and Zithromax in the ED but developed skin redness after the Zithromax which was then stopped. Doxycycline was given. Lasix only 20 mg iv x1 was ordered in the ED. Her labs show a creatinine of 2.5, Troponins of 79 and 77, potassium of 3.3. Her respiratory panel showed COVID-negative but positive for parainfluenza 1 and positive for RSV. Her WBC is 11.9 with 5% Bands, Hgb is 10.4 , and plts are 88. Her Lactic Acid is elevated at 2.9. Her EKG was read as sinus tachycardia at a rate of [address]-T changes, that are new since her last EKG of February 2017. The ED provider and I reviewed her EKG and this is atrial flutter, not sinus tachycardia. The ED provider reached out to the Hospitalist team to have this patient admitted for acute respiratory failure with hypoxia, sepsis, pneumonia, CHF exacerbation, COPD exacerbation, new onset Aflutter with RVR, na usea/vomiting/diarrhea with positive parainfluenza and RSV. Her CODE STATUS is Full Code. History - Past Medical History Cardiovascular: reports: Hypertension, High cholesterol, Murmur Respiratory: reports: COPD, Other (prior lung cancer with lower lobectomy) Neuro: reports: None Endocrine/Autoimmune: reports: Type 2 diabetes, HyPOthyroidism GI: reports: GERD LEAD JAVA SOFTWARE ENGINEER: reports: None : reports: Other HEENT: reports: None Psych: reports: None Musculoskeletal: reports: Osteoarthritis Derm: reports: None MRSA Hx?: No - Past Surgical History General: reports: Appendectomy /LEAD JAVA SOFTWARE ENGINEER: reports: Hysterectomy Cardiovascular: reports: Valve replacement - Family & Social History Family History: Mother: , Alzheimer's Disease, CAD, Father: , Cancer Family History Comment/Other: Ms. Walls is living [facility] with her . She had three children with 3 grandchildren. Living arrangement: At home Living Situation: With spouse/s.o. - Substance History Use: Uses substance without health or social issues: Tobacco, Alcohol - POLST Patient has POLST: No POLST Status: Full Code Meds/Allgy - Home Medications Home Medications: Ambulatory Orders Medication Instructions Recorded Confirmed Levothyroxine [Synthroid] 100 mcg PO QDAC 05/12/16 05/12/22 Anastrozole 1 mg PO DAILY 12/21/17 05/12/22 Fluticasone/Salmeterol [Advair 1 puffs INH BID 04/02/18 05/12/22 500-50 Diskus] Multivitamin [Theragran] 1 tab PO DAILY 04/02/18 05/12/22 Magnesium 1 tab ORAL BID 12/08/19 05/12/22 Torsemide 20 mg PO BID 12/08/19 05/12/22 Ascorbic Acid [Vitamin C] 1 cap PO DAILY 03/26/20 05/12/22 Ubidecarenone [Co Q-10] 100 mg PO DAILY 03/26/20 05/12/22 Aspirin EC [Ecotrin] 81 mg PO DAILY 02/24/22 05/12/22 Benzonatate [Tessalon] 100 mg PO TID PRN #20 cap 02/24/22 05/12/22 carvediloL [Coreg] 0 mg PO BID 02/24/22 05/12/22 dexAMETHasone [Decadron] 4 mg PO DAILY #5 tablet 02/24/22 05/12/22 guaiFENesin [Guaifenesin ER] 600 mg PO BID 5 Days #10 tab 02/24/22 05/12/22 - Allergies Allergies/Adverse Reactions: Allergies Allergy/AdvReac Type Severity Reaction Status Date / Time gentamicin Allergy ototoxicity Verified 09/21/22 09:19 Review of Systems - Constitutional Constitutional: reports: Fever - Respiratory Respiratory: reports: Cough, Sputum production - Gastrointestinal Gastrointestinal: reports: Diarrhea, Nausea, Vomiting - All Other Systems All Other Systems: reports: Reviewed and negative Exam - Vital Signs Vital Signs: Vital Signs x48h Temp Pulse Resp BP Pulse Ox O2 Flow Rate 09/21/22 15:00 143 H 26 H 151/86 H 92 2 09/21/22 13:25 94 09/21/22 12:00 137 H 24 107/70 91 L 09/21/22 09:16 37.2 C 140 H 26 H 125/64 93 - Physical Exam General Appearance: positive: Other (In no distress but she is on BiPAP) Eyes Bilateral: positive: No lid inflammation ENT: positive: Other (Cannot evaluate oral mucosa since she is on bite) Neck: positive: Nml inspection Respiratory: positive: Rhonchi Cardiovascular: positive: Tachycardia Abdomen: positive: No distention Skin: positive: Warm, Dry Extremities: positive: No pedal edema Neurologic/Psychiatric: positive: Oriented x3 (Non-focal) Sepsis Event Note (H) - Evaluation Current Stage of Sepsis: Sepsis - Sepsis Criteria Sepsis Criteria: Recorded Heart Rate greater than 90 bpm, Recorded Respiratory Rate greater than 20, Respiratory: Increasing oxygen requirements, Metabolic: lactate > 2 mmol/L, Hematologic: platelets < 100,000; INR > 1.5, or a PTT>60 seconds Conclusion/Plan - Problem List (1) Acute respiratory failure with hypoxia Conclusion/Plan: Continue with supplemental oxygen. The target will be saturations of 80% and above. Treat the underlying problems (CHF exacerbation, COPD exacerbation, pneumonia) (2) Sepsis Conclusion/Plan: This patient is septic by virtue of tachycardia, elevated lactic acid level, elevated white count with elevated bands, Resp rate 26 and the source appears to be her lungs. Admit to the ICU. The patient is in critical condition. We will not order aggressive crystalloid replacement because she is in florid CHF. Follow lactic acid level till it improves. Follow CBC daily Treat empirically the underlying pneumonia and treat her GI sx. (3) New onset atrial flutter Conclusion/Plan: Etiology could be from her underlying pneumonia, COPD exacerbation or lung cancer. Alternatively her underlying valvular disease may be causing this atrial flutter. Troponins have ruled her out for an acute ACS. Will work on rate control (see below). (4) Atrial flutter with rapid ventricular response Conclusion/Plan: We will place the patient on a Cardizem drip and titrate to achieve rate control, heart rate under 100 is the target. We will change her carvedilol to metoprolol, since it is beta-1 selective, in t his patient with COPD exacerbation. We will treat any fever spikes which could add to tachycardia. Will start IV Lopressor pushes if the blood pressure will allow. Her [id number] score =3 Thus anticoagulants would be preferred for stroke prophylaxis however she has a low platelet count (? Chronically). Will continue her daily baby aspirin treatment. Would not begin therapeutic dose heparin drip either, given her low platelet count Follow plt count daily and will consider Coumadin use going forward The DOAC's are probably not an option for her because of her underlying valve disease (DOACs do not have an indication to be used for Afib-flutter caused by cardiac valve disease). We may need to reach out to her oracle identity management consultant, Dr. Evelyn Allen and determine what her recommendations would be. (5) Pneumonia Conclusion/Plan: Will order a sputum cx. Blood cx were done in ED. Await cx results Will cover for a potential bacterial community-acquired pneumonia. Continue with empiric ceftriaxone and doxycycline (6) CHF exacerbation Conclusion/Plan: CHF is seen on chest x-ray. BNP is mildly elevated but she has renal failure which would also increase the BNP. From a April 2022 [facility] [place] note, she was on carvedilol unknown dose twice daily, baby aspirin daily and torsemide 20 mg twice daily. Will give daily IV Lasix 80 mg We will change her carvedilol to metoprolol, since it is beta-1 selective, in this patient with COPD exacerbation Follow I's and O's and daily weights. Obtain a complete Echocardiogram. (7) COPD exacerbation Conclusion/Plan: Will order Xopenex, 4 times daily scheduled and every 4 hours as needed. Will begin Pulmicort via nebulizer. Will give IV Solu-Medrol 80 3 times daily. Will order Mucinex for expectoration and Robitussin for cough suppression if needed. We will change her carvedilol to metoprolol, since Metoprolol is beta-1 selectiv e, in this patient with a COPD exacerbation Continue with supplemental oxygen, target O2 saturations 88% or above (8) Parainfluenza infection Conclusion/Plan: Will order isolation precautions for airborne infection. We will start the patient on clear liquid diet because of her nausea vomiting and diarrhea. Depending on volume of diarrhea, Imodium may need to be ordered. Will order IV antiemetics. Will give some of her meds by IV form (like Pepcid for stress ulcwer prophylaxis) and not p.o. in order to not promote her vomiting (9) RSV infection Conclusion/Plan: Will order isolation precautions for airborne infection. (10) Acute kidney injury superimposed on chronic kidney disease Conclusion/Plan: This may be cardiorenal syndrome and creatinine will improve with diuretics then. This may also be worsened creatinine from volume depletion related to her 2 days of nausea vomiting and diarrhea. Avoid nephrotoxins. Follow BMP daily (11) Thrombocytopenia Conclusion/Plan: As per history. Her anticoagulants depend on whether she has recovery of platelets to greater than 100 (12) Anemia of chronic disease Conclusion/Plan: As per history. Follow CBC daily. Would transfuse if hemoglobin under 8, given her significant CHF (13) DM type 2 (diabetes mellitus, type 2) Conclusion/Plan: Review of this EMR shows that she has recently been a diet-controlled diabetic. We are starting with clear liquids for bowel rest but when her diet is advanced she will need carb controlled diet. Will order before meals and at bedtime fingerstick glucose checks, hypoglycemia protocol, sliding scale insulin coverage and will check her A1c with a.m. labs (14) Heart valve replaced Conclusion/Plan: There are confusing and different documentation regarding her valves in the CMR. 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 1 place says that the aortic valve was done percutaneously with a TAVR however if that was for aortic valve endocarditis they likely would have had an open chest procedure to remove the infected aortic leaflets. Will obtain a complete Echocardiogram. - Lab Results Fish Bones: 09/21/22 10:26 09/21/22 10:26 - EKG Results EKG Interpreted Independently: Yes EKG Comparison: Changed from prior EKG EKG Findings: Atrial flutter with 2:1 (or possibly 3:1) block, rate 143, diffuse nonspecific ST-T changes. Since her EKG from 2017, the tachycardia, atrial flutter and ST-T abnormalities are all new. - Other Other Results/Comments: Attestation: The patient is expected to be discharged or transferred to another facility within 96 hours: Yes.
[2022-09-21] MEDS ORDERED: diltiaZEM INJ 125 MG in DEXTROSE 5% 100 ML IV SCH (16:00)
[2022-09-21 16:47] LABS: ABG PCO2 32 mmHg (34-45); ABG PH 7.48 (7.35-7.45); ABG PO2 115 mmHg (80-100); ABG TCO2 23.9 MMOL/L (21.0-29.0)
[2022-09-21 16:48] LABS: ABG OXYGEN SATURATION 98 % (94-98)
[2022-09-21] MEDS: diltiaZEM INJ 125 MG in DEXTROSE 5% 100 ML IV SCH (17:14)
[2022-09-21] MEDS: INSULIN LISPRO 300 UNIT/3 ML PEN SUBQ SCH ×2 (18:18→21:04)
[2022-09-21] MEDS: methylPREDNISolone SUCCINATE 40 MG/ML VIAL IVP SCH ×2 (18:18→22:22)
[2022-09-21] MEDS: SODIUM CHLORIDE FLUSH 0.9% 10 ML SYRINGE IVP SCH (18:58)
[2022-09-21] MEDS: METOPROLOL 5 MG/5 ML VIAL IVP SCH (20:06)
[2022-09-21] MEDS: SODIUM CHLORIDE FLUSH 0.9% 10 ML SYRINGE IVP PRN (20:45)
[2022-09-21] MEDS ORDERED: HEPARIN 5,000 UNIT/ML VIAL SUBQ SCH (21:00)
[2022-09-21] MEDS: METOPROLOL TARTRATE 50 MG TABLET PO SCH (21:03)
[2022-09-21] MEDS: FAMOTIDINE 20 MG/2 ML VIAL IVP SCH (21:04)
[2022-09-21] MEDS: DOXYCYCLINE INJ 100 MG in SODIUM CHLORIDE 0.9% MINIBAG 100 ML IV SCH (21:04)
[2022-09-21] MEDS: LEVALBUTEROL 1.25 MG/3 ML NEB INH SCH (21:10)
[2022-09-21] MEDS: BUDESONIDE 0.5 MG/2 ML NEB INH SCH (21:10)
[2022-09-21 22:18] LABS: MAGNESIUM 1.7 mg/dL (1.7-2.8); POTASSIUM 3.8 mmol/L (3.5-5.0)
[2022-09-21] MEDS ORDERED: MAGNESIUM OXIDE 400 MG TABLET PO ONE (22:26)
[2022-09-22] MEDS: SODIUM CHLORIDE FLUSH 0.9% 10 ML SYRINGE IVP SCH ×3 (00:42→17:10)
[2022-09-22] MEDS: POTASSIUM CHLOR 10 MEQ/100 ML 10 MEQ/100 ML BAG IV SCH (01:07)
[2022-09-22] MEDS: diltiaZEM INJ 125 MG in DEXTROSE 5% 100 ML IV SCH (05:17)
[2022-09-22 05:26] LABS: BASOPHILS % (AUTO) 0.5 %; HCT - HEMATOCRIT 32.6 % (37.0-47.0); HGB - HEMOGLOBIN 10.1 g/dL (12.0-16.0); LYMPHOCYTES % (AUTO) 11.4 %; MEAN CORPUSCULAR HEMOGLOBIN 32.6 pg (27.0-31.0); MEAN CORPUSCULAR VOLUME 105.2 fL (81.0-99.0); MEAN PLATELET VOLUME 10.5 fL (7.9-10.8); MONOCYTES % (AUTO) 2.7 %; NEUTROPHILS % (AUTO) 85.1 %; PLT - PLATELET COUNT 77 10^3/uL (130-450); RED CELL DISTRIBUTION WIDTH 18.6 % (12.0-15.0); WHITE BLOOD COUNT 7.3 x10^3/uL (4.8-10.8)
[2022-09-22 05:33] LABS: ABNORMAL LYMPHS % (MANUAL) 0 %
[2022-09-22] MEDS: METOPROLOL 5 MG/5 ML VIAL IVP SCH (05:33)
[2022-09-22 05:37] LABS: CALCIUM, IONIZED 0.97 mmol/L (1.15-1.33); VBG PH 7.458 (7.31-7.41)
[2022-09-22 05:40] LABS: CALCIUM 7.8 mg/dL (8.5-10.3); CREATININE 2.6 mg/dL (0.4-1.0); MAGNESIUM 2.2 mg/dL (1.7-2.8); POTASSIUM 4.4 mmol/L (3.5-5.0)
[2022-09-22 05:46] LABS: BAND NEUTROPHILS % (MANUAL) 5 %; LYMPHOCYTES # (MANUAL) 0.6 10^3/uL (1.5-3.5); LYMPHOCYTES % (MANUAL) 8 %; MONOCYTES # (MANUAL) 0.2 10^3/uL (0.0-1.0); NEUTROPHILS # (MANUAL) 6.5 10^3/uL (1.5-6.6)
[2022-09-22 05:47] LABS: DIFFERENTIAL COMMENT MANUAL DIFFERENTIAL; PLATELET ESTIMATE, MANUAL DECREASED (<130,000) (NORMAL); PLATELET MORPHOLOGY NORMAL APPEARANCE (NORMAL); RBC MORPHOLOGY (MULTIPLE) NORMAL APPEARANCE (NORMAL); WBC MORPHOLOGY (MULTIPLE) NORMAL APPEARANCE (NORMAL)
[2022-09-22] MEDS ORDERED: CALCIUM GLUCONATE IN NS 0.9% 2,000 MG/100 ML BAG IV ONE (06:00)
[2022-09-22] MEDS: methylPREDNISolone SUCCINATE 40 MG/ML VIAL IVP SCH ×3 (06:15→22:39)
[2022-09-22] MEDS: LEVOTHYROXINE 100 MCG TABLET PO SCH (06:16)
[2022-09-22] MEDS: SODIUM CHLORIDE FLUSH 0.9% 10 ML SYRINGE IVP PRN ×2 (06:16→20:54)
[2022-09-22] MEDS: BUDESONIDE 0.5 MG/2 ML NEB INH SCH (07:25)
[2022-09-22] MEDS: FAMOTIDINE 20 MG/2 ML VIAL IVP SCH ×2 (08:45→20:54)
[2022-09-22] MEDS: FUROSEMIDE 40 MG/4 ML VIAL IVP SCH (08:45)
[2022-09-22] MEDS: guaiFENesin 600 MG TABLET PO SCH (08:51)
[2022-09-22] MEDS: ASPIRIN EC 81 MG TABLET PO SCH (08:51)
[2022-09-22] MEDS: METOPROLOL TARTRATE 50 MG TABLET PO SCH ×2 (08:51→21:03)
[2022-09-22] MEDS: cefTRIAXone 1 GM in SODIUM CHLORIDE 0.9% MINIBAG 100 ML IV SCH (08:51)
[2022-09-22] MEDS: INSULIN LISPRO 300 UNIT/3 ML PEN SUBQ SCH ×4 (09:03→21:05)
[2022-09-22] MEDS: DOXYCYCLINE INJ 100 MG in SODIUM CHLORIDE 0.9% MINIBAG 100 ML IV SCH ×2 (09:35→20:54)
[2022-09-22] MEDS ORDERED: METOPROLOL 5 MG/5 ML VIAL IVP PRN (09:41)
[2022-09-22] MEDS: LEVALBUTEROL 1.25 MG/3 ML NEB INH SCH ×2 (11:31→15:27)
--- NOTE | 2022-09-22 12:37 | PHARMACY PROGRESS NOTE ---
- Best Possible Medication History Admit Date and Time: 09/21/22 1537 Processed by: Pharmacy Medication History completed: Yes Patient Interview: Completed Secondary Source(s): Pharmacy records As the person ultimately responsible for medication therapy, providers are able to order a medication from an existing home medication list in [facility] via the "Reconcile Routine" prior to Confirmation of that medication by retail support specialist. Such practice is discouraged except when the physician, in their clinical judgment, deems that a medical need exists for a medication without regard to previous use.
[2022-09-22 13:39] LABS: ESTIMATED AVERAGE GLUCOSE 134 mg/dL (70-100); HEMOGLOBIN A1c% 6.3 % (4.27-6.07)
--- NOTE | 2022-09-22 16:26 | PROVIDER PROGRESS NOTE ---
Subjective - Prog Note Date Prog Note Date: 09/22/22 Prog Note Time: 16:24 - Subjective Subjective: She is improved and that she is less short of breath but still requiring 2 L nasal cannula to maintain O2 sats. She came off BiPAP briefly this morning to be able to eat, get up and go to the bathroom. But the activity made her short of breath and tachycardic so she had to go back on BiPAP and her Cardizem drip needed to be increased. Since she is more alert, less dyspneic she is asking for food. Current Medications - Current Medications Current Medications: Active Medications Acetaminophen (Acetaminophen 325 Mg Tablet) 650 mg PO Q4HR PRN PRN Reason: Pain 1 to 4, or Fever Aspirin (Aspirin Ec 81 Mg Tablet) 81 mg PO DAILY [facility] Last Admin: 09/22/22 08:51 Dose: 81 mg Budesonide (Budesonide 0.5 Mg/2 Ml Neb) 0.5 mg INH RTBID KASI Last Admin: 09/22/22 07:25 Dose: 0.5 mg Famotidine (Famotidine 20 Mg/2 Ml Vial) 20 mg IVP BID KASI Last Admin: 09/22/22 08:45 Dose: 20 mg Furosemide (Furosemide 40 Mg/4 Ml Vial) 80 mg IVP DAILY KASI Last Admin: 09/22/22 08:45 Dose: 80 mg Guaifenesin (Guaifenesin 600 Mg Tablet) 600 mg PO DAILY KASI Last Admin: 09/22/22 08:51 Dose: 600 mg Ceftriaxone Sodium 1 gm/ (Sodium Chloride) 100 mls @ 200 mls/hr IV DAILY KASI Last Infusion: 09/22/22 09:25 Dose: Infused Doxycycline Hyclate 100 mg/ (Sodium Chloride) 100 mls @ 100 mls/hr IV BID KASI Last Infusion: 09/22/22 10:40 Dose: Infused Diltiazem HCl 125 mg/ Dextrose 125 mls @ 5 mls/hr IV .Q25H [facility]; Protocol Last Titration: 09/22/22 15:33 Dose: 7.5 mg/hr, 7.5 mls/hr Insulin Human Lispro (Insulin Lispro 300 Unit/3 Ml Pen) 1 - 9 unit SUBQ 0800,1200,1700,2100 [facility]; Protocol Last Admin: 09/22/22 12:08 Dose: 3 unit Levalbuterol HCl (Levalbuterol 1.25 Mg/3 Ml Neb) 1.25 mg INH Q4H PRN PRN Reason: Shortness of Air/Wheezing Levalbuterol HCl (Levalbuterol 1.25 Mg/3 Ml Neb) 1.25 mg INH QID [facility] Last Admin: 09/22/22 15:27 Dose: 1.25 mg Levothyroxine Sodium (Levothyroxine 100 Mcg Tablet) 100 mcg PO QDAC [facility] Last Admin: 09/22/22 06:16 Dose: 100 mcg Methylprednisolone (Methylprednisolone Succinate 40 Mg/Ml Vial) 80 mg IVP TID [facility] Last Admin: 09/22/22 13:11 Dose: 80 mg Metoprolol Tartrate (Metoprolol Tartrate 50 Mg Tablet) 50 mg PO BID [facility] Last Admin: 09/22/22 08:51 Dose: 50 mg Metoprolol Tartrate (Metoprolol 5 Mg/5 Ml Vial) 5 mg IVP Q6HR PRN PRN Reason: NEEDED PER PROVIDER ORDERS Ondansetron HCl (Ondansetron 4 Mg/2 Ml Vial) 4 mg IVP Q6HR PRN PRN Reason: Nausea / Vomiting Prochlorperazine Edisylate (Prochlorperazine 10 Mg/2 Ml Vial) 10 mg IVP Q6HR PRN PRN Reason: Nausea / Vomiting Sodium Chloride (Sodium Chloride Flush 0.9% 10 Ml Syringe) 10 ml IVP 0100,0900,1700 [facility] Last Admin: 09/22/22 11:22 Dose: 10 ml Sodium Chloride (Sodium Chloride Flush 0.9% 10 Ml Syringe) 10 ml IVP PRN PRN PRN Reason: NEEDED PER PROVIDER ORDERS Last Admin: 09/22/22 06:16 Dose: 10 ml Anastrozole 1 mg PO DAILY 12/21/17 Fluticasone/Salmeterol [Advair 500-50 Diskus] 1 puffs INH BID 04/02/18 Multivitamin [Theragran] 1 tab PO DAILY 04/02/18 Torsemide 40 mg PO DAILY 12/08/19 Ascorbic Acid [Vitamin C] 1 cap PO DAILY 03/26/20 Ubidecarenone [Co Q-10] 100 mg PO DAILY 03/26/20 Aspirin EC [Ecotrin] 81 mg PO DAILY 02/24/22 Albuterol Sulfate [Proair Respiclick] 1 - 2 puffs PO BID PRN 09/22/22 Atorvastatin Calcium 40 mg PO HS 09/22/22 Cholecalciferol [Vitamin D3] 1 tab PO DAILY 09/22/22 Cyanocobalamin (Vitamin B-12) [Vitamin B-12] 1,000 mcg PO DAILY 09/22/22 Levothyroxine [Synthroid] 100 mcg PO QDAC 09/22/22 Magnesium Oxide [Mag Ox] 400 mg PO QPM 09/22/22 Metoprolol Succinate 100 mg PO DAILY 09/22/22 Objective - Vital Signs/Intake & Output Reviewed Vital Signs: Yes Vital Signs: Vital Signs Pulse Pulse Resp BP Pulse Ox O2 Flow Rate 09/22/22 16:00 69 23 105/73 100 09/22/22 15:34 62 09/22/22 15:25 114 H 20 09/22/22 15:00 96 21 124/106 H 98 09/22/22 14:00 125 H 17 135/92 H 100 09/22/22 13:45 2 09/22/22 13:00 110 H 127 H 21 122/84 H 97 2 Intake & Output: Intake & Output 09/20/22 09/20/22 09/21/22 09/22/22 00:59 23:59 23:59 23:59 Intake Total 863.734 2875.001 Output Total 1028 205 Balance -342.804 5056.001 - Objective General Appearance: positive: Alert, Mild distress (Gets tachypneic and tachycardic with minimal exertion) Eyes Bilateral: positive: PERRL, EOMI ENT: positive: Other (Hoarse, congested, productive cough, runny nose) Neck: positive: No JVD Respiratory: positive: Wheezes (Every once in a while. Not always present.), Other (Coarse tubular breath sounds in all lung solorzano.) Cardiovascular: positive: Regular rate & rhythm, Tachycardia (She goes between 58 heartbeats a minute as high as 118) Abdomen: positive: Non-tender, No organomegaly, Nml bowel sounds, No distention Skin: positive: Warm, Dry Extremities: positive: Full ROM, Pedal edema Neurologic/Psychiatric: positive: Oriented x3, CN's nml (2-12), Motor nml (Using trapeze above her bed to reach situate herself in bed. That she is so tired that she will need a two-person assist to sit her up.) - Lab Results Fish Bones: 09/22/22 04:35 09/22/22 04:35 Other Labs: Lab Results x24hrs 09/22/22 09/22/22 09/22/22 Range/Units 04:35 04:35 04:35 WBC (4.8-10.8) x10^3/uL RBC (4.20-5.40) 10^6/uL Hgb (12.0-16.0) g/dL Hct (37.0-47.0) % MCV (81.0-99.0) fL MCH (27.0-31.0) pg MCHC (32.0-36.0) g/dL RDW (12.0-15.0) % Plt Count (130-450) 10^3/uL MPV (7.9-10.8) fL Neut # (Auto) Lymph # (Auto) [place] # (Auto) Eos # (Auto) Baso # (Auto) Absolute Nucleated RBC Total Counted Band Neuts % (Manual) (0 - 10) % Abnorm Lymph % (Manual) % Nucleated RBC % Neutrophils # (Manual) (1.5-6.6) 10^3/uL Lymphocytes # (Manual) (1.5-3.5) 10^3/uL Monocytes # (Manual) (0.0-1.0) 10^3/uL Eosinophils # (Manual) (0-0.7) 10^3/uL Basophils # (Manual) (0-0.1) 10^3/uL Differential Comment WBC Morphology (NORMAL) Platelet Estimate (NORMAL) Platelet Morphology (NORMAL) RBC Morph Micro Appear (NORMAL) Bld Gas Analysis Time Sample Site ABG pH (7.35-7.45) ABG pCO2 (34-45) mmHg ABG pO2 (80-100) mmHg ABG HCO3 (22.0-26.0) mmol/L ABG Total CO2 (21.0-29.0) MMOL/L ABG O2 Saturation (94-98) % ABG Base Excess (-2.0-3.0) mmol/L Manav Test VBG pH 7.458 H (7.31-7.41) Ionized Calcium 0.97 L (1.15-1.33) mmol/L O2 Delivery Device FiO2 EPAP cmH2O IPAP cmH2O Sodium 137 (135-145) mmol/L Potassium 4.4 (3.5-5.0) mmol/L Chloride 104 (101-111) mmol/L Carbon Dioxide 21 (21-32) mmol/L Anion Gap 12.0 (6-13) BUN 50 H (6-20) mg/dL Creatinine 2.6 H (0.4-1.0) mg/dL Estimated GFR (MDRD) 18 L (>89) Glucose 191 H (70-100) mg/dL POC Whole Bld Glucose (70 - 100) mg/dL Estimat Average Glucose 134 H (70-100) mg/dL Hemoglobin A1c % 6.3 H (4.27-6.07) % Calcium 7.8 L (8.5-10.3) mg/dL Phosphorus 3.0 (2.5-4.6) mg/dL Magnesium 2.2 (1.7-2.8) mg/dL Nasal Screen MRSA (PCR) (NEGATIVE) 09/22/22 09/21/22 09/21/22 Range/Units 04:35 22:00 20:24 WBC 7.3 (4.8-10.8) x10^3/uL RBC 3.10 L (4.20-5.40) 10^6/uL Hgb 10.1 L (12.0-16.0) g/dL Hct 32.6 L (37.0-47.0) % MCV 105.2 H (81.0-99.0) fL MCH 32.6 H (27.0-31.0) pg MCHC 31.0 L (32.0-36.0) g/dL RDW 18.6 H (12.0-15.0) % Plt Count 77 L (130-450) 10^3/uL MPV 10.5 (7.9-10.8) fL Neut # (Auto) Not Reportable Lymph # (Auto) Not Reportable [place] # (Auto) Not Reportable Eos # (Auto) Not Reportable Baso # (Auto) Not Reportable Absolute Nucleated RBC Not Reportable Total Counted 100 Band Neuts % (Manual) 5 (0 - 10) % Abnorm Lymph % (Manual) 0 % Nucleated RBC % Not Reportable Neutrophils # (Manual) 6.5 (1.5-6.6) 10^3/uL Lymphocytes # (Manual) 0.6 L (1.5-3.5) 10^3/uL Monocytes # (Manual) 0.2 (0.0-1.0) 10^3/uL Eosinophils # (Manual) 0.0 (0-0.7) 10^3/uL Basophils # (Manual) 0.0 (0-0.1) 10^3/uL Differential Comment MANUAL DIFFERENTIAL WBC Morphology NORMAL APPEARANCE (NORMAL) Platelet Estimate DECREASED (<130,000) (NORMAL) Platelet Morphology NORMAL APPEARANCE (NORMAL) RBC Morph Micro Appear NORMAL APPEARANCE (NORMAL) Bld Gas Analysis Time Sample Site ABG pH (7.35-7.45) ABG pCO2 (34-45) mmHg ABG pO2 (80-100) mmHg ABG HCO3 (22.0-26.0) mmol/L ABG Total CO2 (21.0-29.0) MMOL/L ABG O2 Saturation (94-98) % ABG Base Excess (-2.0-3.0) mmol/L Manav Test VBG pH (7.31-7.41) Ionized Calcium (1.15-1.33) mmol/L O2 Delivery Device FiO2 EPAP cmH2O IPAP cmH2O Sodium (135-145) mmol/L Potassium 3.8 (3.5-5.0) mmol/L Chloride (101-111) mmol/L Carbon Dioxide (21-32) mmol/L Anion Gap (6-13) BUN (6-20) mg/dL Creatinine (0.4-1.0) mg/dL Estimated GFR (MDRD) (>89) Glucose (70-100) mg/dL POC Whole Bld Glucose 166 H (70 - 100) mg/dL Estimat Average Glucose (70-100) mg/dL Hemoglobin A1c % (4.27-6.07) % Calcium (8.5-10.3) mg/dL Phosphorus (2.5-4.6) mg/dL Magnesium 1.7 (1.7-2.8) mg/dL Nasal Screen MRSA (PCR) (NEGATIVE) 09/21/22 09/21/22 09/21/22 Range/Units 18:25 17:52 16:40 WBC (4.8-10.8) x10^3/uL RBC (4.20-5.40) 10^6/uL Hgb (12.0-16.0) g/dL Hct (37.0-47.0) % MCV (81.0-99.0) fL MCH (27.0-31.0) pg MCHC (32.0-36.0) g/dL RDW (12.0-15.0) % Plt Count (130-450) 10^3/uL MPV (7.9-10.8) fL Neut # (Auto) Lymph # (Auto) [place] # (Auto) Eos # (Auto) Baso # (Auto) Absolute Nucleated RBC Total Counted Band Neuts % (Manual) (0 - 10) % Abnorm Lymph % (Manual) % Nucleated RBC % Neutrophils # (Manual) (1.5-6.6) 10^3/uL Lymphocytes # (Manual) (1.5-3.5) 10^3/uL Monocytes # (Manual) (0.0-1.0) 10^3/uL Eosinophils # (Manual) (0-0.7) 10^3/uL Basophils # (Manual) (0-0.1) 10^3/uL Differential Comment WBC Morphology (NORMAL) Platelet Estimate (NORMAL) Platelet Morphology (NORMAL) RBC Morph Micro Appear (NORMAL) Bld Gas Analysis Time 1747 Sample Site LEFT BRACHIAL ABG pH 7.48 H (7.35-7.45) ABG pCO2 32 L (34-45) mmHg ABG pO2 115 H (80-100) mmHg ABG HCO3 23.0 (22.0-26.0) mmol/L ABG Total CO2 23.9 (21.0-29.0) MMOL/L ABG O2 Saturation 98 (94-98) % ABG Base Excess 0.0 (-2.0-3.0) mmol/L Manav Test NOT APPLICABLE VBG pH (7.31-7.41) Ionized Calcium (1.15-1.33) mmol/L O2 Delivery Device BiPAP FiO2 30.00 EPAP 5 cmH2O IPAP 10 cmH2O Sodium (135-145) mmol/L Potassium (3.5-5.0) mmol/L Chloride (101-111) mmol/L Carbon Dioxide (21-32) mmol/L Anion Gap (6-13) BUN (6-20) mg/dL Creatinine (0.4-1.0) mg/dL Estimated GFR (MDRD) (>89) Glucose (70-100) mg/dL POC Whole Bld Glucose 147 H (70 - 100) mg/dL Estimat Average Glucose (70-100) mg/dL Hemoglobin A1c % (4.27-6.07) % Calcium (8.5-10.3) mg/dL Phosphorus (2.5-4.6) mg/dL Magnesium (1.7-2.8) mg/dL Nasal Screen MRSA (PCR) NEGATIVE (NEGATIVE) Sepsis Event Note (H) - Evaluation Current Stage of Sepsis: Sepsis - Sepsis Criteria Sepsis Criteria: Recorded Heart Rate greater than 90 bpm, Recorded Respiratory Rate greater than 20, Respiratory: Increasing oxygen requirements, Metabolic: lactate > 2 mmol/L, Hematologic: platelets < 100,000; INR > 1.5, or a PTT>60 seconds Assessment/Plan - Problem List (1) Acute respiratory failure with hypoxia Impression: Due to viral infection. Continue with supplemental oxygen. The target will be saturations of 80% and above. Treat the underlying problems (CHF exacerbation, COPD exacerbation, pneumonia) (2) Sepsis Conclusion/Plan: This patient is septic by virtue of tachycardia, elevated lactic acid level, elevated white count with elevated bands, Resp rate 26 and the source appears to be her lungs. She was admitted to the ICU September 21, and she was regarded in critical condit ion. Aggressive crystalloid replacement was not done due to the fact she is in florid CHF. Follow lactic acid level till it improves. Will order a second level since only one done. A lactic acid level had not been repeated so I will order for today. White cell count has come down to 7.3 and is now normal. We are treating empirically with ceftriaxone and doxycycline in case she has bacterial pneumonia. I will tend to discontinue this in 3 days total treatment if there is no clear sign of bact erial pneumonia. (3) New onset atrial flutter Conclusion/Plan: Etiology could be from her underlying pneumonia, COPD exacerbation or lung cancer. Alternatively her underlying valvular disease may be causing this atrial flutter. Troponins have ruled her out for an acute ACS. Will do a second set since only one done. Will work on rate control (see below). (4) Atrial flutter with rapid ventricular response Conclusion/Plan: She has been placed on a Cardizem drip and that is being titrated to achieve rate control. Heart rate under 100 is the target and her rate has not slowed down consistently. Carvedilol was changed to metoprolol and she was getting both p.o. and IV metoprolol on a scheduled dose. I have changed the IV to as needed and continue the metoprolol p.o. on a regular dose. Her [id number] score =3 Thus anticoagulants would be preferred for stroke prophylaxis however she has a low platelet count (? Chronically) And she is not been begun on therapeutic heparin or Lovenox. Will continue her daily baby aspirin treatment. Follow plt count daily and will consider Coumadin use going forward The DOAC's are probably not an option for her because of her underlying valve disease (DOACs do not have an indication to be used for Afib-flutter caused by cardiac valve disease). We are not at goal today. I will add digoxin 0.25 IV push every 6x4 doses. 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 Evelyn Allen and determine what her recommendations would be. (5) Pneumonia Conclusion/Plan: Blood cultures been negative. Sputum culture gram stain shows moderate gram- positive cocci in pairs. Rare gram-positive bacilli. Rare epithelial cells. Culture is in progress. She is being covered for a potential bacterial community-acquired pneumonia. Continue with empiric ceftriaxone and doxycycline, Day #2. (6) CHF exacerbation Conclusion/Plan: CHF is seen on chest x-ray. BNP is mildly elevated but she has renal failure which would also increase the BNP. From a April 2022 [facility] clinic note, she was on carvedilol unknown dose twice daily, baby aspirin daily and torsemide 20 mg twice daily. Yesterday her output was 1028 cc. Today her output has only been 205 cc. She is being given Lasix 80 mg IV push daily. Minimal response to today's dose. We will change her carvedilol to metoprolol, since it is beta-1 selective, in this patient with COPD exacerbation Follow I's and O's and daily weights. Obtain a complete Echocardiogram when tech is available (tomorrow) (7) COPD exacerbation Conclusion/Plan: On Xopenex, 4 times daily scheduled and every 4 hours as needed, Pulmicort via nebulizer, IV Solu-Medrol 80 3 times daily, Mucinex for expectoration and Robitussin for cough suppression if needed. We will change her carvedilol to metoprolol, since Metoprolol is beta-1 selective, in this patient with a COPD exacerbation Continue with supplemental oxygen, target O2 saturations 88% or above I will lower solumedrol from 80 mg to 40 mg and if no rebound continue to lower the dosing. (8) Parainfluenza infection Conclusion/Plan: She is on isolation precautions. I will advance her diet from clear liquids to a soft mechanical diet because of her nausea vomiting and diarrhea. So far immodium has not been needed. She is on IV Zofran, and IV Pepcid. (9) RSV infection Conclusion/Plan: Will order isolation precautions for airborne infection. (10) Acute kidney injury superimposed on chronic kidney disease Conclusion/Plan: This may be cardiorenal syndrome and creatinine will improve with diuretics then. This may also be worsened creatinine from volume depletion related to her 2 days of nausea vomiting and diarrhea. Avoid nephrotoxins. Creatinine 2.5>>2.6 so stable. Follow BMP daily (11) Thrombocytopenia Conclusion/Plan: As per history. One admit 88>>77 today. Her anticoagulants depend on whether she has recovery of platelets to greater than 100 (12) Anemia of chronic disease Conclusion/Plan: As per history. Follow CBC daily. Would transfuse if hemoglobin under 8, given her significant CHF (13) DM type 2 (diabetes mellitus, type 2) Conclusion/Plan: Review of this EMR shows that she has recently been a diet-controlled diabetic. I started carb controlled diet on her today. 5 choices. Glucose yesterday was 147, 166 even on 80 mg of Solu-Medrol. Today she is 201 and 212. Again on 80 mg of Solu-Medrol. We will continue to watch. I am tapering Solu-Medrol from 80 mg to 40 mg. We will continue before meals and at bedtime fingerstick glucose checks, hypoglycemia protocol, sliding scale insulin coverage and will check her A1c with a.m. labs (14) Heart valve replaced Conclusion/Plan: There are confusing and different documentation regarding her valves in the CMR. 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 1 lizet says that the aortic valve was done percutaneously with a TAVR however if that was for aortic valve endocarditis they likely would have had an open chest procedure to remove the infected aortic leaflets. Will obtain a complete Echocardiogram.
[2022-09-22] MEDS: DIGOXIN 500 MCG/2 ML AMP IVP SCH ×2 (17:04→22:43)
[2022-09-23] MEDS: SODIUM CHLORIDE FLUSH 0.9% 10 ML SYRINGE IVP SCH ×3 (00:13→17:23)
[2022-09-23] MEDS: DIGOXIN 500 MCG/2 ML AMP IVP SCH (05:08)
[2022-09-23 05:15] LABS: BASOPHILS # (AUTO) 0.1 10^3/uL (0.0-0.1); BASOPHILS % (AUTO) 0.6 %; EOSINOPHILS # (AUTO) 0.1 10^3/uL (0.0-0.7); EOSINOPHILS % (AUTO) 0.8 %; HCT - HEMATOCRIT 30.4 % (37.0-47.0); HGB - HEMOGLOBIN 9.8 g/dL (12.0-16.0); LYMPHOCYTES # (AUTO) 0.7 10^3/uL (1.5-3.5); LYMPHOCYTES % (AUTO) 7.3 %; MEAN CORPUSCULAR HEMOGLOBIN 33.2 pg (27.0-31.0); MEAN CORPUSCULAR HGB CONC 32.2 g/dL (32.0-36.0); MEAN CORPUSCULAR VOLUME 103.1 fL (81.0-99.0); MEAN PLATELET VOLUME 11.9 fL (7.9-10.8); MONOCYTES # (AUTO) 0.6 10^3/uL (0.0-1.0); NEUTROPHILS # (AUTO) 8.1 10^3/uL (1.5-6.6); NEUTROPHILS % (AUTO) 84.2 %; NRBC ABSOLUTE COUNT (AUTO) 0.05 x10^3/uL; NUCLEATED RED BLOOD CELLS AUTO 0.5 /100WBC; PLT - PLATELET COUNT 98 10^3/uL (130-450); RED BLOOD COUNT 2.95 10^6/uL (4.20-5.40); RED CELL DISTRIBUTION WIDTH 17.8 % (12.0-15.0); WHITE BLOOD COUNT 9.7 x10^3/uL (4.8-10.8)
[2022-09-23 05:19] LABS: CALCIUM, IONIZED 1.1 mmol/L (1.15-1.33); VBG PH 7.377 (7.31-7.41)
[2022-09-23 05:28] LABS: CALCIUM 8.5 mg/dL (8.5-10.3); CREATININE 3.1 mg/dL (0.4-1.0); MAGNESIUM 2.6 mg/dL (1.7-2.8); PHOSPHORUS 3.2 mg/dL (2.5-4.6); POTASSIUM 4.3 mmol/L (3.5-5.0)
[2022-09-23] MEDS: LEVOTHYROXINE 100 MCG TABLET PO SCH (06:28)
[2022-09-23] MEDS: SODIUM CHLORIDE FLUSH 0.9% 10 ML SYRINGE IVP PRN ×4 (06:28→22:08)
[2022-09-23] MEDS: methylPREDNISolone SUCCINATE 40 MG/ML VIAL IVP SCH ×3 (06:28→22:08)
[2022-09-23] MEDS: LEVALBUTEROL 1.25 MG/3 ML NEB INH SCH ×6 (07:08→20:57)
[2022-09-23] MEDS: BUDESONIDE 0.5 MG/2 ML NEB INH SCH ×3 (08:12→20:57)
[2022-09-23] MEDS: INSULIN LISPRO 300 UNIT/3 ML PEN SUBQ SCH ×4 (08:33→21:13)
[2022-09-23] MEDS: METOPROLOL TARTRATE 50 MG TABLET PO SCH ×2 (09:24→21:10)
[2022-09-23] MEDS: ASPIRIN EC 81 MG TABLET PO SCH (09:24)
--- NOTE | 2022-09-23 09:36 | Ultrasound Report ---
PROCEDURE: Retroperitoneal INDICATIONS: new oliguric renal failure TECHNIQUE: Real-time scanning was performed of the retroperitoneal organs, with image documentation. COMPARISON: CT of abdomen and pelvis dated 05/20/2017 and abdominal ultrasound dated 09/08/2016. FINDINGS: Kidneys: Kidneys are normal in size. Right kidney measures 8.4 cm long; left kidney measures 8.6 cm long. Right renal cortical thickness is 1.0 cm; left renal cortical thickness is 1.5 cm. No solid masses, hydronephrosis, or nephrolithiasis. Bladder: Villanueva catheter is seen in a decompressed urinary bladder. Miscellaneous: No free abdominal fluid. IMPRESSION: 1. Slightly atrophic bilateral kidneys. No hydronephrosis. No solid appearing renal lesion. No gross nephrolithiasis. 2. Villanueva catheter is seen in a decompressed urinary bladder. Reviewed by: Praveen Dey MD on 09/23/2022 9:35 AM PST Approved by: Praveen Dey MD on 09/23/2022 9:35 AM PST Station ID: [id number]
[2022-09-23] MEDS: FAMOTIDINE 20 MG/2 ML VIAL IVP SCH (09:43)
[2022-09-23] MEDS: FUROSEMIDE 40 MG/4 ML VIAL IVP SCH (10:03)
[2022-09-23] MEDS: cefTRIAXone 1 GM in SODIUM CHLORIDE 0.9% MINIBAG 100 ML IV SCH (10:06)
--- NOTE | 2022-09-23 11:37 | PROVIDER PROGRESS NOTE ---
Subjective - Prog Note Date Prog Note Date: 09/23/22 Prog Note Time: 11:44 - Subjective Subjective: Tired, coughing. But able to get out of bed and walk to the bathroom for toileting. It resulted in tachypnea, shortness of breath and slow recovery so s he wants the BiPAP back on. If she has been at rest, not eating, not speaking, she can go to nasal cannula. Urine output is low. Approximately 250 cc between midnight and now. Denies chest pain, abdominal pain Current Medications - Current Medications Current Medications: Active Medications Acetaminophen (Acetaminophen 325 Mg Tablet) 650 mg PO Q4HR PRN PRN Reason: Pain 1 to 4, or Fever Amoxicillin/Clavulanate Potassium (Amox/Clav 500 Mg/125 Mg Tablet) 1 tab PO BID [facility] Stop: 09/25/22 21:59 Aspirin (Aspirin Ec 81 Mg Tablet) 81 mg PO DAILY [facility] Last Admin: 09/23/22 09:24 Dose: 81 mg Budesonide (Budesonide 0.5 Mg/2 Ml Neb) 0.5 mg INH RTBID [facility] Last Admin: 09/23/22 09:26 Dose: 0.5 mg Doxycycline Hyclate (Doxycycline 100 Mg Tablet) 100 mg PO BID [facility] Stop: 09/25/22 21:59 Last Admin: 09/23/22 12:02 Dose: 100 mg Famotidine (Famotidine 20 Mg Tablet) 20 mg PO Q48H [facility] Furosemide (Furosemide 40 Mg/4 Ml Vial) 80 mg IVP DAILY [facility] Last Admin: 09/23/22 10:03 Dose: 80 mg Guaifenesin (Guaifenesin 600 Mg Tablet) 600 mg PO DAILY [facility] Last Admin: 09/23/22 12:02 Dose: 600 mg Insulin Human Lispro (Insulin Lispro 300 Unit/3 Ml Pen) 3 - 11 unit SUBQ 0800,1200,1700,2100 [facility]; Protocol Last Admin: 09/23/22 12:08 Dose: 7 unit Levalbuterol HCl (Levalbuterol 1.25 Mg/3 Ml Neb) 1.25 mg INH Q4H PRN PRN Reason: Shortness of Air/Wheezing Levalbuterol HCl (Levalbuterol 1.25 Mg/3 Ml Neb) 1.25 mg INH QID [facility] Last Admin: 09/23/22 09:35 Dose: 1.25 mg Levothyroxine Sodium (Levothyroxine 100 Mcg Tablet) 100 mcg PO QDAC [facility] Last Admin: 09/23/22 06:28 Dose: 100 mcg Methylprednisolone (Methylprednisolone Succinate 40 Mg/Ml Vial) 40 mg IVP TID [facility] Last Admin: 09/23/22 06:28 Dose: 40 mg Metoprolol Tartrate (Metoprolol Tartrate 50 Mg Tablet) 50 mg PO BID [facility] Last Admin: 09/23/22 09:24 Dose: 50 mg Ondansetron HCl (Ondansetron 4 Mg/2 Ml Vial) 4 mg IVP Q6HR PRN PRN Reason: Nausea / Vomiting Prochlorperazine Edisylate (Prochlorperazine 10 Mg/2 Ml Vial) 10 mg IVP Q6HR PRN PRN Reason: Nausea / Vomiting Sodium Chloride (Sodium Chloride Flush 0.9% 10 Ml Syringe) 10 ml IVP 0100,0900,1700 [facility] Last Admin: 09/23/22 11:39 Dose: Not Given Sodium Chloride (Sodium Chloride Flush 0.9% 10 Ml Syringe) 10 ml IVP PRN PRN PRN Reason: NEEDED PER PROVIDER ORDERS Last Admin: 09/23/22 11:38 Dose: 10 ml Anastrozole 1 mg PO DAILY 12/21/17 Fluticasone/Salmeterol [Advair 500-50 Diskus] 1 puffs INH BID 04/02/18 Multivitamin [Theragran] 1 tab PO DAILY 04/02/18 Torsemide 40 mg PO DAILY 12/08/19 Ascorbic Acid [Vitamin C] 1 cap PO DAILY 03/26/20 Ubidecarenone [Co Q-10] 100 mg PO DAILY 03/26/20 Aspirin EC [Ecotrin] 81 mg PO DAILY 02/24/22 Albuterol Sulfate [Proair Respiclick] 1 - 2 puffs PO BID PRN 09/22/22 Atorvastatin Calcium 40 mg PO HS 09/22/22 Cholecalciferol [Vitamin D3] 1 tab PO DAILY 09/22/22 Cyanocobalamin (Vitamin B-12) [Vitamin B-12] 1,000 mcg PO DAILY 09/22/22 Levothyroxine [Synthroid] 100 mcg PO QDAC 09/22/22 Magnesium Oxide [Mag Ox] 400 mg PO QPM 09/22/22 Metoprolol Succinate 100 mg PO DAILY 09/22/22 Objective - Vital Signs/Intake & Output Reviewed Vital Signs: Yes Vital Signs: Vital Signs Temp Pulse Pulse Resp BP BP Pulse Ox 09/23/22 10:00 75 16 103/69 100 09/23/22 09:36 69 23 09/23/22 09:31 73 09/23/22 09:24 109/78 09/23/22 09:00 75 22 109/78 97 09/23/22 08:00 36.3 C L 82 24 125/78 96 O2 Flow Rate 09/23/22 10:00 30 09/23/22 09:36 09/23/22 09:31 09/23/22 09:24 09/23/22 09:00 09/23/22 08:00 2 Intake & Output: Intake & Output 09/20/22 09/21/22 09/22/22 09/23/22 23:59 23:59 23:59 23:59 Intake Total 922.206 7926.501 465.584 Output Total 1028 290 275 Balance -476.065 5598.501 190.584 - Objective General Appearance: positive: Alert, Mild distress, Other (5 feet 3 inches tall, 78 kg black female) Eyes Bilateral: positive: PERRL, EOMI ENT: positive: No signs of dehydration Neck: negative: Stiff neck Respiratory: positive: Wheezes, Rhonchi, Other (Tachypnea but no tripoding or use of accessory muscles) Cardiovascular: positive: Irregularly irregular, Tachycardia, Systolic murmur Abdomen: positive: Non-tender, No organomegaly, Nml bowel sounds, No distention Skin: positive: Warm, Dry Extremities: positive: Full ROM, Pedal edema Neurologic/Psychiatric: positive: Oriented x3, CN's nml (2-12), Motor nml - Lab Results Fish Bones: 09/23/22 04:36 09/23/22 04:36 Other Labs: Lab Results x24hrs 09/23/22 09/23/22 09/23/22 Range/Units 04:36 04:36 04:36 WBC 9.7 (4.8-10.8) x10^3/uL RBC 2.95 L (4.20-5.40) 10^6/uL Hgb 9.8 L (12.0-16.0) g/dL Hct 30.4 L (37.0-47.0) % MCV 103.1 H (81.0-99.0) fL MCH 33.2 H (27.0-31.0) pg MCHC 32.2 (32.0-36.0) g/dL RDW 17.8 H (12.0-15.0) % Plt Count 98 L (130-450) 10^3/uL MPV 11.9 H (7.9-10.8) fL Neut # (Auto) 8.1 H (1.5-6.6) 10^3/uL Lymph # (Auto) 0.7 L (1.5-3.5) 10^3/uL [place] # (Auto) 0.6 (0.0-1.0) 10^3/uL Eos # (Auto) 0.1 (0.0-0.7) 10^3/uL Baso # (Auto) 0.1 (0.0-0.1) 10^3/uL Absolute Nucleated RBC 0.05 x10^3/uL Nucleated RBC % 0.5 /100WBC VBG pH 7.377 (7.31-7.41) Ionized Calcium 1.10 L (1.15-1.33) mmol/L Sodium 135 (135-145) mmol/L Potassium 4.3 (3.5-5.0) mmol/L Chloride 102 (101-111) mmol/L Carbon Dioxide 20 L (21-32) mmol/L Anion Gap 13.0 (6-13) BUN 76 H (6-20) mg/dL Creatinine 3.1 H (0.4-1.0) mg/dL Estimated GFR (MDRD) 15 L (>89) Glucose 170 H (70-100) mg/dL POC Whole Bld Glucose (70 - 100) mg/dL Estimat Average Glucose (70-100) mg/dL Hemoglobin A1c % (4.27-6.07) % Lactic Acid (0.5-2.2) mmol/L Calcium 8.5 (8.5-10.3) mg/dL Phosphorus 3.2 (2.5-4.6) mg/dL Magnesium 2.6 (1.7-2.8) mg/dL Troponin I High Sens (2.3-14.8) ng/L 09/22/22 09/22/22 09/22/22 Range/Units 21:26 20:50 17:19 WBC (4.8-10.8) x10^3/uL RBC (4.20-5.40) 10^6/uL Hgb (12.0-16.0) g/dL Hct (37.0-47.0) % MCV (81.0-99.0) fL MCH (27.0-31.0) pg MCHC (32.0-36.0) g/dL RDW (12.0-15.0) % Plt Count (130-450) 10^3/uL MPV (7.9-10.8) fL Neut # (Auto) (1.5-6.6) 10^3/uL Lymph # (Auto) (1.5-3.5) 10^3/uL [place] # (Auto) (0.0-1.0) 10^3/uL Eos # (Auto) (0.0-0.7) 10^3/uL Baso # (Auto) (0.0-0.1) 10^3/uL Absolute Nucleated RBC x10^3/uL Nucleated RBC % /100WBC VBG pH (7.31-7.41) Ionized Calcium (1.15-1.33) mmol/L Sodium (135-145) mmol/L Potassium (3.5-5.0) mmol/L Chloride (101-111) mmol/L Carbon Dioxide (21-32) mmol/L Anion Gap (6-13) BUN (6-20) mg/dL Creatinine (0.4-1.0) mg/dL Estimated GFR (MDRD) (>89) Glucose (70-100) mg/dL POC Whole Bld Glucose 298 H (70 - 100) mg/dL Estimat Average Glucose (70-100) mg/dL Hemoglobin A1c % (4.27-6.07) % Lactic Acid 2.6 H (0.5-2.2) mmol/L Calcium (8.5-10.3) mg/dL Phosphorus (2.5-4.6) mg/dL Magnesium (1.7-2.8) mg/dL Troponin I High Sens 49.5 H* (2.3-14.8) ng/L 09/22/22 09/22/22 09/22/22 Range/Units 16:56 11:57 08:11 WBC (4.8-10.8) x10^3/uL RBC (4.20-5.40) 10^6/uL Hgb (12.0-16.0) g/dL Hct (37.0-47.0) % MCV (81.0-99.0) fL MCH (27.0-31.0) pg MCHC (32.0-36.0) g/dL RDW (12.0-15.0) % Plt Count (130-450) 10^3/uL MPV (7.9-10.8) fL Neut # (Auto) (1.5-6.6) 10^3/uL Lymph # (Auto) (1.5-3.5) 10^3/uL [place] # (Auto) (0.0-1.0) 10^3/uL Eos # (Auto) (0.0-0.7) 10^3/uL Baso # (Auto) (0.0-0.1) 10^3/uL Absolute Nucleated RBC x10^3/uL Nucleated RBC % /100WBC VBG pH (7.31-7.41) Ionized Calcium (1.15-1.33) mmol/L Sodium (135-145) mmol/L Potassium (3.5-5.0) mmol/L Chloride (101-111) mmol/L Carbon Dioxide (21-32) mmol/L Anion Gap (6-13) BUN (6-20) mg/dL Creatinine (0.4-1.0) mg/dL Estimated GFR (MDRD) (>89) Glucose (70-100) mg/dL POC Whole Bld Glucose 234 H 212 H 201 H (70 - 100) mg/dL Estimat Average Glucose (70-100) mg/dL Hemoglobin A1c % (4.27-6.07) % Lactic Acid (0.5-2.2) mmol/L Calcium (8.5-10.3) mg/dL Phosphorus (2.5-4.6) mg/dL Magnesium (1.7-2.8) mg/dL Troponin I High Sens (2.3-14.8) ng/L 09/22/22 Range/Units 04:35 WBC (4.8-10.8) x10^3/uL RBC (4.20-5.40) 10^6/uL Hgb (12.0-16.0) g/dL Hct (37.0-47.0) % MCV (81.0-99.0) fL MCH (27.0-31.0) pg MCHC (32.0-36.0) g/dL RDW (12.0-15.0) % Plt Count (130-450) 10^3/uL MPV (7.9-10.8) fL Neut # (Auto) (1.5-6.6) 10^3/uL Lymph # (Auto) (1.5-3.5) 10^3/uL [place] # (Auto) (0.0-1.0) 10^3/uL Eos # (Auto) (0.0-0.7) 10^3/uL Baso # (Auto) (0.0-0.1) 10^3/uL Absolute Nucleated RBC x10^3/uL Nucleated RBC % /100WBC VBG pH (7.31-7.41) Ionized Calcium (1.15-1.33) mmol/L Sodium (135-145) mmol/L Potassium (3.5-5.0) mmol/L Chloride (101-111) mmol/L Carbon Dioxide (21-32) mmol/L Anion Gap (6-13) BUN (6-20) mg/dL Creatinine (0.4-1.0) mg/dL Estimated GFR (MDRD) (>89) Glucose (70-100) mg/dL POC Whole Bld Glucose (70 - 100) mg/dL Estimat Average Glucose 134 H (70-100) mg/dL Hemoglobin A1c % 6.3 H (4.27-6.07) % Lactic Acid (0.5-2.2) mmol/L Calcium (8.5-10.3) mg/dL Phosphorus (2.5-4.6) mg/dL Magnesium (1.7-2.8) mg/dL Troponin I High Sens (2.3-14.8) ng/L Sepsis Event Note (H) - Evaluation Current Stage of Sepsis: Sepsis - Sepsis Criteria Sepsis Criteria: Recorded Heart Rate greater than 90 bpm, Recorded Respiratory Rate greater than 20, Respiratory: Increasing oxygen requirements, Metabolic: lactate > 2 mmol/L, Hematologic: platelets < 100,000; INR > 1.5, or a PTT>60 seconds Assessment/Plan - Problem List (1) Acute kidney injury superimposed on chronic kidney disease Impression: Initially it was thought that she had cardiorenal syndrome and that the creatinine would improve when she was diuresed with diuretics. We also thought that she had dehydration/volume depletion from her diarrhea and nausea and vomiting prior to admission. She tells me that Dr. LANA Leach is her body masker at [facility]. She is already getting Lasix 80 mg IV push daily. The first day she had 1028 cc out. Yesterday she had 290 cc out. As of midnight last night till this morning she has 275 cc out. She has been rate controlled and bradycardic now in the 50s since yesterday afternoon. Blood pressure yesterday was stable. She vary from 116 systolic 128 systolic. Even with the bradycardiac her systolic was 128-134. At around 3 in the morning today she has been 104, 101 systolic but back up to 125 by late morning. Creatinine 2.5>>2.6>>3.1 so she is worsening. Plan: Follow BMP daily I called and left a message at Dr. Leach's office at [phone] to have him give me a call. 500 cc bolus of NS Retroperitoneal ultrasound to make sure there is no hydronephrosis (2) Acute respiratory failure with hypoxia, Improved Impression: Due to viral infection. Continue with supplemental oxygen. The target will be saturations of 80% and above. Treat the underlying problems (CHF exacerbation, COPD exacerbation, pneumonia) Her O2 sats are actually good on nasal cannula. But she feels so much better with BiPAP. She says that she struggles less when she is on BiPAP. As such when she is not eating or going to the bathroom, she prefers to have BiPAP over nasal cannula. (3) New onset atrial flutter Conclusion/Plan: Etiology could be from her underlying pneumonia, COPD exacerbation or lung cancer. Alternatively her underlying valvular disease may be causing this atrial flutter. Troponins have ruled her out for an acute ACS. Will do a second set since only one done. Will work on rate control (see below). (4) Atrial flutter with rapid ventricular response, now rate controlled. Conclusion/Plan: She was placed on a Cardizem drip on admiision to the ICU and that was titrated to achieve rate control. Heart rate under 100 is the target and her rate did slow down consistently. Carvedilol was changed to metoprolol and she was getting both p.o. and IV metoprolol on a scheduled dose. I changed the IV dosing to prn and as continued the metoprolol p.o. on a regular dose. Her [id number] score =3 Thus anticoagulants would be preferred for stroke prophylaxis however she has a low platelet count (? Chronically) And she is not been begun on therapeutic heparin or Lovenox. Will continue her daily baby aspirin treatment. Follow plt count daily and will consider Coumadin use going forward The DOAC's are probably not an option for her because of her underlying valve disease (DOACs do not have an indication to be used for Afib-flutter caused by cardiac valve disease). Since she was not at goal with the Cardizem drip plus the metoprolol p.o. on September 22, I added digoxin 0.25 IV push every 6x4 doses. She dropped her pulse to the 50s and 60s and is now controlled. Cardizem drip has been stopped. I w ill continue metoprolol po to control the rate. No more dig or cardizem for now. I did call Dr. Evelyn Allen's office @ [phone] to determine what her recommendations would be. She is at the hospital and her pager is [phone] so I have left a page for her to call me (5) Pneumonia Conclusion/Plan: Blood cultures been negative. Sputum culture gram stain shows moderate gram- positive cocci in pairs. Rare gram-positive bacilli. Rare epithelial cells. Culture is in progress. She is being covered for a potential bacterial community-acquired pneumonia. Continue with empiric ceftriaxone and doxycycline, Day #3. I will stop IV and change to po for tomorrow. Only do 2 days of oral for a total of 5 days since there is no fever and WBC better.. (6) CHF exacerbation Conclusion/Plan: CHF is seen on chest x-ray. BNP is mildly elevated but she has renal failure which would also increase the BNP. From a April 2022 [facility] [place] [facility] [place] note, she was on carvedilol unknown dose twice daily, baby aspirin daily and torsemide 20 mg twice daily. 09/21 her output was 1028 cc. 09/22 her output has only been 290 cc. She is being given Lasix 80 mg IV push daily. As of this afternon, she is 450 cc. Her carvedilol was changed to metoprolol, since it is beta-1 selective, in this patient with COPD exacerbation Follow I's and O's and daily weights. Obtain a complete Echocardiogram when tech is available (today) (7) COPD exacerbation Conclusion/Plan: On Xopenex, 4 times daily scheduled and every 4 hours as needed, Pulmicort via nebulizer, IV Solu-Medrol 80 3 times daily changed to 40 mg IV tid for a day and now stopped, Mucinex for expectoration and Robitussin for cough suppression if needed. Continue with supplemental oxygen, target O2 saturations 88% or above Watch for rebound since I stopped her steroids this morning. (8) Parainfluenza infection Conclusion/Plan: She is on isolation precautions. Diet advanced 09/22 from clear liquids (for N/V/D) to a soft mechanical diet So far immodium has not been needed. She is on IV Zofran, and IV Pepcid. (9) RSV infection Conclusion/Plan: Will order isolation precautions for airborne infection. (10) Sepsis resolved Conclusion/Plan: This patient was septic by virtue of tachycardia, elevated lactic acid level, elevated white count with elevated bands, Resp rate 26 and the source appears to be her lungs. She was admitted to the ICU September 21, and she was regarded in critical condition. Aggressive crystalloid replacement was not done due to the fact she is in florid CHF. White cell count became normal. Lactic acid improved but did not completely go down to normal. She was 2.9 with admission, and 2.6 yesterday. I do think that she has a viral pneumonia with subsequent complications of the hypoxia, A. fib, congestive heart failure. She is on empiric antibiotic therapy but I do not recommend to be continuing it beyond IV therapy for 3 days, and then p.o. therapy for 2 days for a total of 5 days of therapy.
[2022-09-23] MEDS ORDERED: SODIUM CHLORIDE 0.9% 500 ML IV ONE (11:40)
[2022-09-23] MEDS: guaiFENesin 600 MG TABLET PO SCH (12:02)
[2022-09-23] MEDS: DOXYCYCLINE 100 MG TABLET PO SCH ×2 (12:02→21:10)
[2022-09-24] MEDS: SODIUM CHLORIDE FLUSH 0.9% 10 ML SYRINGE IVP SCH ×3 (01:07→17:08)
[2022-09-24 05:20] LABS: BASOPHILS % (AUTO) 0.3 %; HCT - HEMATOCRIT 30.7 % (37.0-47.0); HGB - HEMOGLOBIN 9.7 g/dL (12.0-16.0); LYMPHOCYTES # (AUTO) 0.6 10^3/uL (1.5-3.5); LYMPHOCYTES % (AUTO) 6.4 %; MEAN CORPUSCULAR HGB CONC 31.6 g/dL (32.0-36.0); MEAN CORPUSCULAR VOLUME 104.4 fL (81.0-99.0); MEAN PLATELET VOLUME 11.5 fL (7.9-10.8); MONOCYTES # (AUTO) 0.6 10^3/uL (0.0-1.0); MONOCYTES % (AUTO) 6.9 %; NEUTROPHILS # (AUTO) 7.1 10^3/uL (1.5-6.6); NRBC ABSOLUTE COUNT (AUTO) 0.06 x10^3/uL; NUCLEATED RED BLOOD CELLS AUTO 0.7 /100WBC; PLT - PLATELET COUNT 110 10^3/uL (130-450); RED BLOOD COUNT 2.94 10^6/uL (4.20-5.40); RED CELL DISTRIBUTION WIDTH 17.8 % (12.0-15.0); WHITE BLOOD COUNT 8.7 x10^3/uL (4.8-10.8)
[2022-09-24 05:25] LABS: CALCIUM, IONIZED 1.11 mmol/L (1.15-1.33); VBG PH 7.366 (7.31-7.41)
[2022-09-24 05:35] LABS: CALCIUM 8.5 mg/dL (8.5-10.3); MAGNESIUM 2.5 mg/dL (1.7-2.8); PHOSPHORUS 4.5 mg/dL (2.5-4.6); POTASSIUM 3.9 mmol/L (3.5-5.0)
[2022-09-24] MEDS: SODIUM CHLORIDE FLUSH 0.9% 10 ML SYRINGE IVP PRN ×2 (06:20→13:57)
[2022-09-24] MEDS: methylPREDNISolone SUCCINATE 40 MG/ML VIAL IVP SCH ×3 (06:20→21:44)
[2022-09-24] MEDS: LEVOTHYROXINE 100 MCG TABLET PO SCH (06:20)
[2022-09-24] MEDS: BUDESONIDE 0.5 MG/2 ML NEB INH SCH ×2 (07:42→22:41)
[2022-09-24] MEDS: LEVALBUTEROL 1.25 MG/3 ML NEB INH SCH ×4 (07:43→22:41)
[2022-09-24] MEDS ORDERED: SODIUM CHLORIDE 0.9% 1,000 ML IV SCH (09:00)
[2022-09-24] MEDS: INSULIN LISPRO 300 UNIT/3 ML PEN SUBQ SCH ×4 (09:43→20:17)
[2022-09-24] MEDS: ASPIRIN EC 81 MG TABLET PO SCH (09:46)
[2022-09-24] MEDS: AMOX/CLAV 500 MG/125 MG TABLET PO SCH ×2 (09:46→20:14)
[2022-09-24] MEDS: DOXYCYCLINE 100 MG TABLET PO SCH ×2 (09:47→20:14)
[2022-09-24] MEDS: METOPROLOL TARTRATE 50 MG TABLET PO SCH ×2 (09:47→20:15)
[2022-09-24] MEDS: TORSEMIDE 20 MG TABLET PO SCH (09:47)
[2022-09-24 16:32] LABS: CALCIUM 8.7 mg/dL (8.5-10.3); CREATININE 2.9 mg/dL (0.4-1.0); POTASSIUM 4.1 mmol/L (3.5-5.0)
[2022-09-24] MEDS ORDERED: METOPROLOL 5 MG/5 ML VIAL IVP STA (18:57)
[2022-09-24] MEDS ORDERED: LORazepam 2 MG/ML VIAL IVP PRN (18:58)
--- NOTE | 2022-09-24 18:59 | PROVIDER PROGRESS NOTE ---
Subjective - Prog Note Date Prog Note Date: 09/24/22 Prog Note Time: 18:59 - Subjective Subjective: We spoke for over 30 minutes. She has a very stressful life. She has a younger daughter who is afflicted with substance abuse problems and mental health issues. As a result this patient/grandmother now has custody of the 89-year-old kids that belonged to her daughter. They had to throw her daughter out of the house. She is not getting along with her . She laments that she is exhausted all the time, cooking, cleaning, trying to take care of these kids. And her does not quite get how debilitated she is. We spoke about her heart disease. The severe mitral and aortic valve stenosis. How this is going to limit her life span. On the one hand she acknowledges that, and would like to think about the inevitability of her , but she says she does not have time to grasp it because the day-to-day moments of life are so all-encompassing with these grandkids and her family situation. And the fact that she just does not get along with her anymore. These are not his blood grandchildren. He is increasingly resentful of the time and energy she develops to other people and not to him. Objective - Vital Signs/Intake & Output Reviewed Vital Signs: Yes Vital Signs: Vital Signs x48h Temp Pulse Pulse Resp BP Pulse Ox O2 Flow Rate 09/24/22 18:00 80 22 97 09/24/22 17:50 65 24 09/24/22 17:00 72 20 149/80 H 95 09/24/22 16:00 36.6 C 74 19 138/75 H 96 09/24/22 15:00 66 20 109/87 H 95 09/24/22 14:00 66 18 144/67 H 96 09/24/22 13:30 60 16 09/24/22 13:00 68 20 98 09/24/22 12:00 36.6 C 70 21 168/76 H 96 09/24/22 11:00 80 18 140/57 H 100 2 Intake & Output: Intake & Output 09/21/22 09/22/22 09/23/22 09/24/22 23:59 23:59 23:59 23:59 Intake Total 504.880 0282.501 1705.584 970 Output Total 2026 299 1181 1005 Balance -541.925 2161.501 505.584 -35 - Objective General Appearance: positive: No acute distress (When she gets anxious, she will get tachycardic and get very short of breath. Nurse works very hard at doing relaxing and calming techniques, to do deep breathing, etc.), Alert ENT: positive: Dry mucous membranes Neck: positive: No JVD. negative: Stiff neck Respiratory: positive: Rales Cardiovascular: positive: Regular rate & rhythm, Systolic murmur, Diastolic murmur Abdomen: positive: Non-tender, No organomegaly, Nml bowel sounds, No distention Skin: positive: Warm, Dry Extremities: positive: Full ROM, Pedal edema Neurologic/Psychiatric: positive: Oriented x3, CN's nml (2-12), Motor nml - Lab Results Fish Bones: 09/25/22 04:35 09/25/22 04:35 Other Labs: Lab Results x24hrs 09/24/22 09/24/22 09/24/22 Range/Units 16:58 16:14 12:24 WBC (4.8-10.8) x10^3/uL RBC (4.20-5.40) 10^6/uL Hgb (12.0-16.0) g/dL Hct (37.0-47.0) % MCV (81.0-99.0) fL MCH (27.0-31.0) pg MCHC (32.0-36.0) g/dL RDW (12.0-15.0) % Plt Count (130-450) 10^3/uL MPV (7.9-10.8) fL Neut # (Auto) (1.5-6.6) 10^3/uL Lymph # (Auto) (1.5-3.5) 10^3/uL Concho # (Auto) (0.0-1.0) 10^3/uL Eos # (Auto) (0.0-0.7) 10^3/uL Baso # (Auto) (0.0-0.1) 10^3/uL Absolute Nucleated RBC x10^3/uL Nucleated RBC % /100WBC VBG pH (7.31-7.41) Ionized Calcium (1.15-1.33) mmol/L Sodium 138 (135-145) mmol/L Potassium 4.1 (3.5-5.0) mmol/L Chloride 102 (101-111) mmol/L Carbon Dioxide 19 L (21-32) mmol/L Anion Gap 17.0 H (6-13) BUN 87 H* (6-20) mg/dL Creatinine 2.9 H (0.4-1.0) mg/dL Estimated GFR (MDRD) 16 L (>89) Glucose 298 H (70-100) mg/dL POC Whole Bld Glucose 254 H 270 H (70 - 100) mg/dL Calcium 8.7 (8.5-10.3) mg/dL Phosphorus (2.5-4.6) mg/dL Magnesium (1.7-2.8) mg/dL 09/24/22 09/24/22 09/24/22 Range/Units 07:38 04:34 04:34 WBC (4.8-10.8) x10^3/uL RBC (4.20-5.40) 10^6/uL Hgb (12.0-16.0) g/dL Hct (37.0-47.0) % MCV (81.0-99.0) fL MCH (27.0-31.0) pg MCHC (32.0-36.0) g/dL RDW (12.0-15.0) % Plt Count (130-450) 10^3/uL MPV (7.9-10.8) fL Neut # (Auto) (1.5-6.6) 10^3/uL Lymph # (Auto) (1.5-3.5) 10^3/uL Concho # (Auto) (0.0-1.0) 10^3/uL Eos # (Auto) (0.0-0.7) 10^3/uL Baso # (Auto) (0.0-0.1) 10^3/uL Absolute Nucleated RBC x10^3/uL Nucleated RBC % /100WBC VBG pH 7.366 (7.31-7.41) Ionized Calcium 1.11 L (1.15-1.33) mmol/L Sodium 139 (135-145) mmol/L Potassium 3.9 (3.5-5.0) mmol/L Chloride 105 (101-111) mmol/L Carbon Dioxide 20 L (21-32) mmol/L Anion Gap 14.0 H (6-13) BUN 86 H* (6-20) mg/dL Creatinine 3.0 H (0.4-1.0) mg/dL Estimated GFR (MDRD) 15 L (>89) Glucose 162 H (70-100) mg/dL POC Whole Bld Glucose 175 H (70 - 100) mg/dL Calcium 8.5 (8.5-10.3) mg/dL Phosphorus 4.5 (2.5-4.6) mg/dL Magnesium 2.5 (1.7-2.8) mg/dL 09/24/22 09/23/22 09/23/22 Range/Units 04:34 21:03 16:33 WBC 8.7 (4.8-10.8) x10^3/uL RBC 2.94 L (4.20-5.40) 10^6/uL Hgb 9.7 L (12.0-16.0) g/dL Hct 30.7 L (37.0-47.0) % MCV 104.4 H (81.0-99.0) fL MCH 33.0 H (27.0-31.0) pg MCHC 31.6 L (32.0-36.0) g/dL RDW 17.8 H (12.0-15.0) % Plt Count 110 L (130-450) 10^3/uL MPV 11.5 H (7.9-10.8) fL Neut # (Auto) 7.1 H (1.5-6.6) 10^3/uL Lymph # (Auto) 0.6 L (1.5-3.5) 10^3/uL [place]cho # (Auto) 0.6 (0.0-1.0) 10^3/uL Eos # (Auto) 0.0 (0.0-0.7) 10^3/uL Baso # (Auto) 0.0 (0.0-0.1) 10^3/uL Absolute Nucleated RBC 0.06 x10^3/uL Nucleated RBC % 0.7 /100WBC VBG pH (7.31-7.41) Ionized Calcium (1.15-1.33) mmol/L Sodium (135-145) mmol/L Potassium (3.5-5.0) mmol/L Chloride (101-111) mmol/L Carbon Dioxide (21-32) mmol/L Anion Gap (6-13) BUN (6-20) mg/dL Creatinine (0.4-1.0) mg/dL Estimated GFR (MDRD) (>89) Glucose (70-100) mg/dL POC Whole Bld Glucose 249 H 215 H (70 - 100) mg/dL Calcium (8.5-10.3) mg/dL Phosphorus (2.5-4.6) mg/dL Magnesium (1.7-2.8) mg/dL 09/23/22 09/23/22 Range/Units 11:52 07:54 WBC (4.8-10.8) x10^3/uL RBC (4.20-5.40) 10^6/uL Hgb (12.0-16.0) g/dL Hct (37.0-47.0) % MCV (81.0-99.0) fL MCH (27.0-31.0) pg MCHC (32.0-36.0) g/dL RDW (12.0-15.0) % Plt Count (130-450) 10^3/uL MPV (7.9-10.8) fL Neut # (Auto) (1.5-6.6) 10^3/uL Lymph # (Auto) (1.5-3.5) 10^3/uL Concho # (Auto) (0.0-1.0) 10^3/uL Eos # (Auto) (0.0-0.7) 10^3/uL Baso # (Auto) (0.0-0.1) 10^3/uL Absolute Nucleated RBC x10^3/uL Nucleated RBC % /100WBC VBG pH (7.31-7.41) Ionized Calcium (1.15-1.33) mmol/L Sodium (135-145) mmol/L Potassium (3.5-5.0) mmol/L Chloride (101-111) mmol/L Carbon Dioxide (21-32) mmol/L Anion Gap (6-13) BUN (6-20) mg/dL Creatinine (0.4-1.0) mg/dL Estimated GFR (MDRD) (>89) Glucose (70-100) mg/dL POC Whole Bld Glucose 251 H 170 H (70 - 100) mg/dL Calcium (8.5-10.3) mg/dL Phosphorus (2.5-4.6) mg/dL Magnesium (1.7-2.8) mg/dL Sepsis Event Note (H) - Evaluation Current Stage of Sepsis: Sepsis - Sepsis Criteria Sepsis Criteria: Recorded Heart Rate greater than 90 bpm, Recorded Respiratory Rate greater than 20, Respiratory: Increasing oxygen requirements, Metabolic: lactate > 2 mmol/L, Hematologic: platelets < 100,000; INR > 1.5, or a PTT>60 seconds Assessment/Plan - Problem List (1) Acute kidney injury superimposed on chronic kidney disease Impression: Initially it was thought that she had cardiorenal syndrome and that the creatinine would improve when she was diuresed with diuretics. We also thought that she had dehydration/volume depletion from her diarrhea and nausea and vomiting prior to admission. She tells me that Dr. LANA Leach is her rehabilitation tech at [facility]. She is already getting Lasix 80 mg IV push daily. The first day she had 1028 cc out. Yesterday she had 290 cc out. As of midnight last night till this morning she has 275 cc out. She has been rate controlled and bradycardic now in the 50s since yesterday afternoon. Blood pressure yesterday was stable. She vary from 116 systolic 128 systolic. Even with the bradycardiac her systolic was 128-134. At around 3 in the morning today she has been 104, 101 systolic but back up to 125 by late morning. Creatinine 2.5>>2.6>>3.1>>3.0 today Plan: Follow BMP daily Dr. Leach said there is not much to do for her. She just please forward a copy of her labs so that he can have a record when he next sees her. 500 cc bolus of NS today Retroperitoneal ultrasound to make sure there is no hydronephrosis recheck this afternoon change lasix usual po dose of torsemide (2) Acute respiratory failure with hypoxia, Improved Impression: She will get hypoxic if she gets tachycardic. Right now a lot of emotional stress decompensates her. Current episode exacerbation Due to viral infection. Continue with supplemental oxygen. The target will be saturations of 80% and above. Treat the underlying problems (CHF exacerbation, COPD exacerbation, pneumonia) Long talk about her anxiety today. I explained that the BiPAP is used for respiratory failure and she is using it more to calm down her nerves. When she gets home she will not have BiPAP. We need to focus on other techniques to help her feel like she is not suffocating. (3) New onset atrial flutter Conclusion/Plan: Etiology could be from her underlying pneumonia, COPD exacerbation or lung cancer. Alternatively her underlying valvular disease may be causing this atrial flutter. Serial troponins were flat. Metoprolol seems to be slowing down her heart rate enough. (4) Atrial flutter with rapid ventricular response, now rate controlled. Conclusion/Plan: She was placed on a Cardizem drip on admiision to the ICU and that was titrated to achieve rate control. Heart rate under 100 is the target and her rate did slow down consistently. Carvedilol was changed to metoprolol and she was getting both p.o. and IV metoprolol on a scheduled dose. I changed the IV dosing to prn and as continued the metoprolol p.o. on a regular dose. Her [id number] score =3 Thus anticoagulants would be preferred for stroke prophylaxis however she has a low platelet count (? Chronically) And she is not been begun on therapeutic heparin or Lovenox. Will continue her daily baby aspirin treatment. Follow plt count daily and will consider Coumadin use going forward The DOAC's are probably not an option for her because of her underlying valve disease (DOACs do not have an indication to be used for Afib-flutter caused by cardiac valve disease). Since she was not at goal with the Cardizem drip plus the metoprolol p.o. on , I added digoxin 0.25 IV push every 6x4 doses. She dropped her pulse to the 50s and 60s and is now controlled. Cardizem drip has been stopped. I will continue metoprolol po to control the rate. No more dig or cardizem for now. I had a long conversation with Dr. Evelyn Allen @ [phone] And goal is to keep her between 50 and 65 pulse rate. Diurese judiciously. It is difficult to balance her fluid intake and output because of her kidney disease. (5) Pneumonia Conclusion/Plan: Blood cultures been negative. Sputum culture gram stain shows moderate gram- positive cocci in pairs. Rare gram-positive bacilli. Rare epithelial cells. Culture is in progress. She is being covered for a potential bacterial community-acquired pneumonia. Continue with empiric ceftriaxone and doxycycline, Day #4. I have stopped IV and she will be switched to p.o. today and tomorrow. Total of 5 days of therapy. (6) CHF exacerbation Conclusion/Plan: CHF is seen on chest x-ray. BNP is mildly elevated but she has renal failure which would also increase the BNP. From a April 2022 [facility] [place] note, she was on carvedilol unknown dose twice daily, baby aspirin daily and torsemide 20 mg twice daily. Urine output has come down since September 22. This is in spite of 80 mg of Lasix IV. But I have probably gotten to her baseline and that her creatinine is coming up. I will now switch to p.o. diuretic. Her usual home diuretic. See how she does with this and her rate control and consider discharge in the next day or 2.Echocardiogram showed an ejection fraction of 60 to 65%. Indeterminant diastolic function due to her valve. Left ventricular septal wall is flattened in systole which is consistent with right ventricular overload. Mild to moderate right ventricular enlargement. The right ventricular systolic function mildly impaired. Atria were not well visualized. The extent of her valvular heart disease is documented. (7) COPD exacerbation Conclusion/Plan: On Xopenex, 4 times daily scheduled and every 4 hours as needed, Pulmicort via nebulizer, IV Solu-Medrol 80 3 times daily changed to 40 mg IV tid . September 23. Mucinex for expectoration and Robitussin for cough suppression if needed. Continue with supplemental oxygen, target O2 saturations 88% or above Stop steroids today. (8) Parainfluenza infection Conclusion/Plan: She is on isolation precautions. Diet advanced 09/22 from clear liquids (for N/V/D) to a soft mechanical diet So far immodium has not been needed. She is on IV Zofran, and IV Pepcid. We will change IV Pepcid to p.o. Pepcid (9) RSV infection Conclusion/Plan: Will order isolation precautions for airborne infection. (10) Sepsis resolved Conclusion/Plan: This patient was septic by virtue of tachycardia, elevated lactic acid level, elevated white count with elevated bands, Resp rate 26 and the source appears to be her lungs. She was admitted to the ICU September 21, and she was regarded in critical condition. Aggressive crystalloid replacement was not done due to the fact she is in florid CHF. White cell count became normal. Lactic acid improved but did not completely go down to normal. She was 2.9 with admission, and 2.6 yesterday. I do think that she has a viral pneumonia with subsequent complications of the hypoxia, A. fib, congestive heart failure. She is on empiric antibiotic therapy but I do not recommend to be continuing it beyond IV therapy for 3 days, and then p.o. therapy for 2 days for a total of 5 days of therapy.
[2022-09-25] MEDS: SODIUM CHLORIDE FLUSH 0.9% 10 ML SYRINGE IVP SCH ×4 (01:25→19:36)
[2022-09-25 05:25] LABS: BASOPHILS % (AUTO) 0.4 %; HCT - HEMATOCRIT 30.9 % (37.0-47.0); LYMPHOCYTES % (AUTO) 5.8 %; MEAN CORPUSCULAR HEMOGLOBIN 33.2 pg (27.0-31.0); MEAN CORPUSCULAR HGB CONC 32.4 g/dL (32.0-36.0); MEAN CORPUSCULAR VOLUME 102.7 fL (81.0-99.0); MEAN PLATELET VOLUME 11.4 fL (7.9-10.8); MONOCYTES % (AUTO) 9.4 %; NEUTROPHILS % (AUTO) 74.8 %; PLT - PLATELET COUNT 139 10^3/uL (130-450); RED BLOOD COUNT 3.01 10^6/uL (4.20-5.40)
[2022-09-25 05:38] LABS: CALCIUM 8.7 mg/dL (8.5-10.3); CREATININE 2.6 mg/dL (0.4-1.0); POTASSIUM 3.6 mmol/L (3.5-5.0)
[2022-09-25 05:39] LABS: ABNORMAL LYMPHS % (MANUAL) 0 %
[2022-09-25] MEDS ORDERED: POTASSIUM CHLORIDE 20 MEQ TABLET PO ONE (06:00)
[2022-09-25 06:04] LABS: BAND NEUTROPHILS % (MANUAL) 8 %; LYMPHOCYTES # (MANUAL) 0.6 10^3/uL (1.5-3.5); LYMPHOCYTES % (MANUAL) 6 %; METAMYELOCYTES % (MANUAL) 3 %; MONOCYTES # (MANUAL) 0.9 10^3/uL (0.0-1.0); MYELOCYTES % (MANUAL) 4 %; NEUTROPHILS # (MANUAL) 7.8 10^3/uL (1.5-6.6)
[2022-09-25 06:06] LABS: DIFFERENTIAL COMMENT MANUAL DIFFERENTIAL; PLATELET ESTIMATE, MANUAL NORMAL (130-450,000) (NORMAL)
[2022-09-25] MEDS: methylPREDNISolone SUCCINATE 40 MG/ML VIAL IVP SCH (06:18)
[2022-09-25] MEDS: SODIUM CHLORIDE FLUSH 0.9% 10 ML SYRINGE IVP PRN (06:18)
[2022-09-25] MEDS: LEVOTHYROXINE 100 MCG TABLET PO SCH (06:18)
[2022-09-25 06:20] LABS: MAGNESIUM 2.3 mg/dL (1.7-2.8); PHOSPHORUS 4.6 mg/dL (2.5-4.6)
[2022-09-25] MEDS: BUDESONIDE 0.5 MG/2 ML NEB INH SCH ×2 (07:33→21:24)
[2022-09-25] MEDS: LEVALBUTEROL 1.25 MG/3 ML NEB INH SCH ×4 (07:33→21:24)
[2022-09-25] MEDS: INSULIN LISPRO 300 UNIT/3 ML PEN SUBQ SCH ×4 (08:02→20:17)
[2022-09-25] MEDS: AMOX/CLAV 500 MG/125 MG TABLET PO SCH ×2 (09:00→20:16)
[2022-09-25] MEDS ORDERED: FAMOTIDINE 20 MG TABLET PO SCH (09:00)
[2022-09-25] MEDS: ASPIRIN EC 81 MG TABLET PO SCH (09:00)
[2022-09-25] MEDS: DOXYCYCLINE 100 MG TABLET PO SCH ×2 (09:00→20:16)
[2022-09-25] MEDS: TORSEMIDE 20 MG TABLET PO SCH (09:01)
[2022-09-25] MEDS: METOPROLOL TARTRATE 50 MG TABLET PO SCH ×2 (09:01→20:22)
--- NOTE | 2022-09-25 16:50 | PROVIDER PROGRESS NOTE ---
Subjective - Prog Note Date Prog Note Date: 09/25/22 Prog Note Time: 16:48 - Subjective Subjective: For the most part she is stable at rest. When she had to go to the bathroom or argues with her family that she gets tachycardic, starts to gasp for air and gets very anxious. Last night was a contentious night between herself, her , and children. Today for the most part she is in the 60s but will occasionally go up 220. Current Medications - Current Medications Current Medications: Active Medications Acetaminophen (Acetaminophen 325 Mg Tablet) 650 mg PO Q4HR PRN PRN Reason: Pain 1 to 4, or Fever Amoxicillin/Clavulanate Potassium (Amox/Clav 500 Mg/125 Mg Tablet) 1 tab PO BID [facility] Stop: 09/25/22 21:59 Last Admin: 09/25/22 09:00 Dose: 1 tab Aspirin (Aspirin Ec 81 Mg Tablet) 81 mg PO DAILY [facility] Last Admin: 09/25/22 09:00 Dose: 81 mg Budesonide (Budesonide 0.5 Mg/2 Ml Neb) 0.5 mg INH RTBID [facility] Last Admin: 09/25/22 07:33 Dose: 0.5 mg Doxycycline Hyclate (Doxycycline 100 Mg Tablet) 100 mg PO BID [facility] Stop: 09/25/22 21:59 Last Admin: 09/25/22 09:00 Dose: 100 mg Famotidine (Famotidine 20 Mg Tablet) 20 mg PO Q48H [facility] Last Admin: 09/25/22 09:00 Dose: 20 mg Insulin Human Lispro (Insulin Lispro 300 Unit/3 Ml Pen) 3 - 11 unit SUBQ 0800,1200,1700,2100 [facility]; Protocol Last Admin: 09/25/22 12:04 Dose: 9 unit Levalbuterol HCl (Levalbuterol 1.25 Mg/3 Ml Neb) 1.25 mg INH Q4H PRN PRN Reason: Shortness of Air/Wheezing Levalbuterol HCl (Levalbuterol 1.25 Mg/3 Ml Neb) 1.25 mg INH QID [facility] Last Admin: 09/25/22 12:17 Dose: 1.25 mg Levothyroxine Sodium (Levothyroxine 100 Mcg Tablet) 100 mcg PO QDAC [facility] Last Admin: 09/25/22 06:18 Dose: 100 mcg Lorazepam (Lorazepam 2 Mg/Ml Vial) 0.5 mg IVP Q2H PRN PRN Reason: Anxiety Last Admin: 09/24/22 20:14 Dose: 0.5 mg Metoprolol Tartrate (Metoprolol Tartrate 50 Mg Tablet) 75 mg PO BID [facility] Ondansetron HCl (Ondansetron 4 Mg/2 Ml Vial) 4 mg IVP Q6HR PRN PRN Reason: Nausea / Vomiting Prochlorperazine Edisylate (Prochlorperazine 10 Mg/2 Ml Vial) 10 mg IVP Q6HR PRN PRN Reason: Nausea / Vomiting Sodium Chloride (Sodium Chloride Flush 0.9% 10 Ml Syringe) 10 ml IVP 0100,0900,1700 [facility] Last Admin: 09/25/22 09:01 Dose: 10 ml Sodium Chloride (Sodium Chloride Flush 0.9% 10 Ml Syringe) 10 ml IVP PRN PRN PRN Reason: NEEDED PER PROVIDER ORDERS Last Admin: 09/25/22 06:18 Dose: 10 ml Torsemide (Torsemide 20 Mg Tablet) 40 mg PO DAILY [facility] Last Admin: 09/25/22 09:01 Dose: 40 mg Anastrozole 1 mg PO DAILY 12/21/17 Fluticasone/Salmeterol [Advair 500-50 Diskus] 1 puffs INH BID 04/02/18 Multivitamin [Theragran] 1 tab PO DAILY 04/02/18 Torsemide 40 mg PO DAILY 12/08/19 Ascorbic Acid [Vitamin C] 1 cap PO DAILY 03/26/20 Ubidecarenone [Co Q-10] 100 mg PO DAILY 03/26/20 Aspirin EC [Ecotrin] 81 mg PO DAILY 02/24/22 Albuterol Sulfate [Proair Respiclick] 1 - 2 puffs PO BID PRN 09/22/22 Atorvastatin Calcium 40 mg PO HS 09/22/22 Cholecalciferol [Vitamin D3] 1 tab PO DAILY 09/22/22 Cyanocobalamin (Vitamin B-12) [Vitamin B-12] 1,000 mcg PO DAILY 09/22/22 Levothyroxine [Synthroid] 100 mcg PO QDAC 09/22/22 Magnesium Oxide [Mag Ox] 400 mg PO QPM 09/22/22 Metoprolol Succinate 100 mg PO DAILY 09/22/22 Objective - Vital Signs/Intake & Output Reviewed Vital Signs: Yes Vital Signs: Vital Signs x48h Temp Pulse Pulse Resp BP BP BP 09/25/22 16:00 36.6 C 61 17 140/83 H 09/25/22 15:00 72 18 151/79 H 09/25/22 14:00 74 22 142/76 H 09/25/22 13:00 70 22 138/65 H 09/25/22 12:19 64 22 09/25/22 12:00 67 21 148/103 H 09/25/22 11:00 36.9 C 67 18 142/64 H 09/25/22 10:00 78 23 143/68 H 09/25/22 09:01 135/75 H 09/25/22 09:00 89 23 138/65 H Pulse Ox 09/25/22 16:00 98 09/25/22 15:00 95 09/25/22 14:00 98 09/25/22 13:00 99 09/25/22 12:19 09/25/22 12:00 98 09/25/22 11:00 98 09/25/22 10:00 98 09/25/22 09:01 09/25/22 09:00 99 Intake & Output: Intake & Output 09/22/22 09/23/22 09/24/22 09/25/22 23:59 23:59 23:59 23:59 Intake Total 4326.591 9200.584 1210 1030 Output Total 290 1200 1405 551 Balance 1263.501 505.584 -195 479 - Objective General Appearance: positive: Alert, Other (Comfortable at rest. Has not had BiPAP for 24 hours.) Eyes Bilateral: positive: PERRL, EOMI ENT: positive: No signs of dehydration Neck: positive: No JVD. negative: Stiff neck Respiratory: positive: No respiratory distress, Wheezes (Faint, not always present). negative: Rales, Rhonchi Cardiovascular: positive: Irregularly irregular, Systolic murmur, Diastolic murmur Abdomen: positive: Non-tender, No organomegaly, Nml bowel sounds, No distention Skin: positive: Warm, Dry Extremities: positive: Full ROM, No pedal edema Neurologic/Psychiatric: positive: Oriented x3, CN's nml (2-12), Motor nml - Lab Results Fish Bones: 09/25/22 04:35 09/25/22 04:35 Other Labs: Lab Results x24hrs 09/25/22 09/25/22 09/25/22 Range/Units 11:38 07:55 04:35 WBC (4.8-10.8) x10^3/uL RBC (4.20-5.40) 10^6/uL Hgb (12.0-16.0) g/dL Hct (37.0-47.0) % MCV (81.0-99.0) fL MCH (27.0-31.0) pg MCHC (32.0-36.0) g/dL RDW (12.0-15.0) % Plt Count (130-450) 10^3/uL MPV (7.9-10.8) fL Neut # (Auto) Lymph # (Auto) [place] # (Auto) Eos # (Auto) Baso # (Auto) Absolute Nucleated RBC Total Counted Band Neuts % (Manual) (0 - 10) % Abnorm Lymph % (Manual) % Metamyelocytes % ( - 0) % Myelocytes % ( - 0) % Nucleated RBC % Neutrophils # (Manual) (1.5-6.6) 10^3/uL Lymphocytes # (Manual) (1.5-3.5) 10^3/uL Monocytes # (Manual) (0.0-1.0) 10^3/uL Eosinophils # (Manual) (0-0.7) 10^3/uL Basophils # (Manual) (0-0.1) 10^3/uL Differential Comment Platelet Estimate (NORMAL) RBC Morph Micro Appear (NORMAL) Sodium (135-145) mmol/L Potassium (3.5-5.0) mmol/L Chloride (101-111) mmol/L Carbon Dioxide (21-32) mmol/L Anion Gap (6-13) BUN (6-20) mg/dL Creatinine (0.4-1.0) mg/dL Estimated GFR (MDRD) (>89) Glucose (70-100) mg/dL POC Whole Bld Glucose 283 H 235 H (70 - 100) mg/dL Calcium (8.5-10.3) mg/dL Phosphorus 4.6 (2.5-4.6) mg/dL Magnesium 2.3 (1.7-2.8) mg/dL 09/25/22 09/25/22 09/24/22 Range/Units 04:35 04:35 20:13 WBC 10.0 (4.8-10.8) x10^3/uL RBC 3.01 L (4.20-5.40) 10^6/uL Hgb 10.0 L (12.0-16.0) g/dL Hct 30.9 L (37.0-47.0) % MCV 102.7 H (81.0-99.0) fL MCH 33.2 H (27.0-31.0) pg MCHC 32.4 (32.0-36.0) g/dL RDW 18.0 H (12.0-15.0) % Plt Count 139 (130-450) 10^3/uL MPV 11.4 H (7.9-10.8) fL Neut # (Auto) Not Reportable Lymph # (Auto) Not Reportable [place] # (Auto) Not Reportable Eos # (Auto) Not Reportable Baso # (Auto) Not Reportable Absolute Nucleated RBC Not Reportable Total Counted 100 Band Neuts % (Manual) 8 (0 - 10) % Abnorm Lymph % (Manual) 0 % Metamyelocytes % 3 H ( - 0) % Myelocytes % 4 H ( - 0) % Nucleated RBC % Not Reportable Neutrophils # (Manual) 7.8 H (1.5-6.6) 10^3/uL Lymphocytes # (Manual) 0.6 L (1.5-3.5) 10^3/uL Monocytes # (Manual) 0.9 (0.0-1.0) 10^3/uL Eosinophils # (Manual) 0.0 (0-0.7) 10^3/uL Basophils # (Manual) 0.0 (0-0.1) 10^3/uL Differential Comment MANUAL DIFFERENTIAL Platelet Estimate NORMAL (130-450,000) (NORMAL) RBC Morph Micro Appear 1+ OVALOCYTES (NORMAL) Sodium 138 (135-145) mmol/L Potassium 3.6 (3.5-5.0) mmol/L Chloride 103 (101-111) mmol/L Carbon Dioxide 19 L (21-32) mmol/L Anion Gap 16.0 H (6-13) BUN 89 H* (6-20) mg/dL Creatinine 2.6 H (0.4-1.0) mg/dL Estimated GFR (MDRD) 18 L (>89) Glucose 195 H (70-100) mg/dL POC Whole Bld Glucose 299 H (70 - 100) mg/dL Calcium 8.7 (8.5-10.3) mg/dL Phosphorus (2.5-4.6) mg/dL Magnesium (1.7-2.8) mg/dL 09/24/22 Range/Units 16:58 WBC (4.8-10.8) x10^3/uL RBC (4.20-5.40) 10^6/uL Hgb (12.0-16.0) g/dL Hct (37.0-47.0) % MCV (81.0-99.0) fL MCH (27.0-31.0) pg MCHC (32.0-36.0) g/dL RDW (12.0-15.0) % Plt Count (130-450) 10^3/uL MPV (7.9-10.8) fL Neut # (Auto) Lymph # (Auto) [place] # (Auto) Eos # (Auto) Baso # (Auto) Absolute Nucleated RBC Total Counted Band Neuts % (Manual) (0 - 10) % Abnorm Lymph % (Manual) % Metamyelocytes % ( - 0) % Myelocytes % ( - 0) % Nucleated RBC % Neutrophils # (Manual) (1.5-6.6) 10^3/uL Lymphocytes # (Manual) (1.5-3.5) 10^3/uL Monocytes # (Manual) (0.0-1.0) 10^3/uL Eosinophils # (Manual) (0-0.7) 10^3/uL Basophils # (Manual) (0-0.1) 10^3/uL Differential Comment Platelet Estimate (NORMAL) RBC Morph Micro Appear (NORMAL) Sodium (135-145) mmol/L Potassium (3.5-5.0) mmol/L Chloride (101-111) mmol/L Carbon Dioxide (21-32) mmol/L Anion Gap (6-13) BUN (6-20) mg/dL Creatinine (0.4-1.0) mg/dL Estimated GFR (MDRD) (>89) Glucose (70-100) mg/dL POC Whole Bld Glucose 254 H (70 - 100) mg/dL Calcium (8.5-10.3) mg/dL Phosphorus (2.5-4.6) mg/dL Magnesium (1.7-2.8) mg/dL Sepsis Event Note (H) - Evaluation Current Stage of Sepsis: Sepsis - Sepsis Criteria Sepsis Criteria: Recorded Heart Rate greater than 90 bpm, Recorded Respiratory Rate greater than 20, Respiratory: Increasing oxygen requirements, Metabolic: lactate > 2 mmol/L, Hematologic: platelets < 100,000; INR > 1.5, or a PTT>60 seconds Assessment/Plan - Problem List (1) Acute kidney injury superimposed on chronic kidney disease Impression: Initially it was thought that she had cardiorenal syndrome and that the creatinine would improve when she was diuresed with diuretics. We also thought that she had dehydration/volume depletion from her diarrhea and nausea and vomiting prior to admission. 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 She is already getting Lasix 80 mg IV push daily. The first day she had 1028 cc out. Yesterday she had 290 cc out. As of midnight last night till this morning she has 275 cc out. She has been rate controlled and bradycardic now in the 50s since yesterday afternoon. Blood pressure yesterday was stable. She vary from 116 systolic 128 systolic. Even with the bradycardiac her systolic was 128-134. Yesterday she was rate controlled. That was until the evening hours when she began having a fight with her and children. The nurse actually had to take the phone out of her hand and disconnect her and say you can't talk to your family right now. You need to calm down, take some deep breaths, and you can talk to them tomorrow Creatinine 2.5>>2.6>>3.1>>3.0>> (500 cc bolus) 2.9>>2.6 today. Retroperitoneal ultrasound did not have any hydronephrosis. Small shrunken kidneys. Plan: Follow BMP daily Dr. Leach said there is not much to do for her. He asked if we could just please forward a copy of her labs so that he can have a record when he next sees her.She has been changed to p.o. torsemide today. Her usual home dose. Urine output has not been spectacular but her BUN and creatinine are responding. And she does not appear to be going into fulminant CHF unless she is tachycardic and fighting with her family. (2) Acute respiratory failure with hypoxia, Improved Impression: She will get hypoxic if she gets tachycardic. Right now a lot of emotional stress decompensates her. Current episode exacerbation Due to viral infection. Continue with supplemental oxygen. The target will be saturations of 80% and above. Treat the underlying problems (CHF exacerbation, COPD exacerbation, pneumonia) Since I spoke to her yesterday, she has not been on BiPAP. She is saturating well on nasal cannula oxygen. She will need to go home on oxygen. (3) New onset atrial flutter Conclusion/Plan: Etiology could be from her underlying pneumonia, COPD exacerbation or lung cancer. Alternatively her underlying valvular disease may be causing this atrial flutter. Serial troponins were flat. Metoprolol seems to be slowing down her heart rate enough. (4) Atrial flutter with rapid ventricular response, now rate controlled. Conclusion/Plan: She was placed on a Cardizem drip on admiision to the ICU and that was titrated to achieve rate control. Heart rate under 100 is the target and her rate did slow down consistently. Carvedilol was changed to metoprolol and she was gettin g both p.o. and IV metoprolol on a scheduled dose. I changed the IV dosing to prn and as continued the metoprolol p.o. on a regular dose. Her [id number] score =3 Thus anticoagulants would be preferred for stroke prophylaxis however she has a low platelet count (? Chronically) And she is not been begun on therapeutic heparin or Lovenox. Will continue her daily baby aspirin treatment. Follow plt count daily and will consider Coumadin use going forward The DOAC's are probably not an option for her because of her underlying valve disease (DOACs do not have an indication to be used for Afib-flutter caused by cardiac valve disease). Since she was not at goal with the Cardizem drip plus the metoprolol p.o. on September 22, I added digoxin 0.25 IV push every 6x4 doses. She dropped her pulse to the 50s and 60s and is now controlled. Cardizem drip has been stopped. I will continue metoprolol po to control the rate. No more dig or cardizem for now. I had a long conversation with Dr. Evelyn Allen @ [phone] And goal is to keep her between 50 and 65 pulse rate. Diurese judiciously. It is difficult to balance her fluid intake and output because of her kidney disease. I will increase her Cardizem to 75 mg p.o. twice daily since she is still having burst of tachycardia over 100 today (5) Pneumonia Conclusion/Plan: Blood cultures been negative. Sputum culture gram stain shows moderate gram- positive cocci in pairs. Rare gram-positive bacilli. Rare epithelial cells. Culture is in progress. She is being covered for a potential bacterial community-acquired pneumonia. Continue with empiric ceftriaxone and doxycycline, Day #4. I have stopped IV and she will be switched to p.o.Yesterday and today. (6) CHF exacerbation Conclusion/Plan: CHF is seen on chest x-ray. BNP is mildly elevated but she has renal failure which would also increase the BNP. From a April 2022 [facility] clinic note, she was on carvedilol unknown dose twice daily, baby aspirin daily and torsemide 20 mg twice daily. Urine output has come down since September 22. This is in spite of 80 mg of Lasix IV. But I have probably gotten to her baseline and that her creatinine is coming up. I switched her to torsemide today, Her usual home diuretic. See how she does with this and her rate control and consider discharge in the next day or 2.Echocardiogram showed an ejection fraction of 60 to 65%. Indeterminant diastolic function due to her valve. Left ventricular septal wall is flattened in systole which is consistent with right ventricular overload. Mild to moderate right ventricular enlargement. The right ventricular systolic function mildly impaired. Atria were not well visualized. The extent of her valvular heart disease is documented. (7) COPD exacerbation Conclusion/Plan: On Xopenex, 4 times daily scheduled and every 4 hours as needed, Pulmicort via nebulizer, IV Solu-Medrol 80 3 times daily changed to 40 mg IV tid . September 23. Mucinex for expectoration and Robitussin for cough suppression if needed. Continue with supplemental oxygen, target O2 saturations 88% or above Stop steroids today. (8) Parainfluenza infection Conclusion/Plan: She is on isolation precautions. Diet advanced 09/22 from clear liquids (for N/V/D) to a soft mechanical diet So far immodium has not been needed. She was on IV Zofran, and IV Pepcid. Pepcid changed to p.o. September 24 (9) RSV infection Conclusion/Plan: Isolation precautions for airborne infection. (10) Sepsis resolved Conclusion/Plan: This patient was septic by virtue of tachycardia, elevated lactic acid level, elevated white count with elevated bands, Resp rate 26 and the source appears to be her lungs. She was admitted to the ICU September 21, and she was regarded in critical condition. Aggressive crystalloid replacement was not done due to the fact she is in florid CHF. White cell count became normal. Lactic acid improved but did not completely go down to normal. She was 2.9 with admission, and 2.6 yesterday. I do think that she has a viral pneumonia with subsequent complications of the hypoxia, A. fib, congestive heart failure. She is on empiric antibiotic therapy but I do not r ecommend to be continuing it beyond IV therapy for 3 days, and then p.o. therapy for 2 days for a total of 5 days of therapy.
[2022-09-25] MEDS ORDERED: METOPROLOL 5 MG/5 ML VIAL IVP ONE (17:31)
[2022-09-25] MEDS ORDERED: ZINC OXIDE 20% OINT 30 GM TUBE TOP PRN (19:47)
[2022-09-26] MEDS: SODIUM CHLORIDE FLUSH 0.9% 10 ML SYRINGE IVP SCH ×2 (04:50→08:43)
[2022-09-26 05:10] LABS: BASOPHILS % (AUTO) 0.4 %; LYMPHOCYTES % (AUTO) 6.5 %; MEAN CORPUSCULAR HEMOGLOBIN 33.1 pg (27.0-31.0); MEAN CORPUSCULAR HGB CONC 32.4 g/dL (32.0-36.0); MEAN CORPUSCULAR VOLUME 102.4 fL (81.0-99.0); MEAN PLATELET VOLUME 9.4 fL (7.9-10.8); MONOCYTES % (AUTO) 12.4 %; NEUTROPHILS % (AUTO) 71.2 %; PLT - PLATELET COUNT 165 10^3/uL (130-450); RED BLOOD COUNT 3.32 10^6/uL (4.20-5.40); RED CELL DISTRIBUTION WIDTH 17.9 % (12.0-15.0); WHITE BLOOD COUNT 11.6 x10^3/uL (4.8-10.8)
[2022-09-26 05:12] LABS: ABNORMAL LYMPHS % (MANUAL) 0 %
[2022-09-26 05:29] LABS: CREATININE 2.4 mg/dL (0.4-1.0); MAGNESIUM 2.1 mg/dL (1.7-2.8); PHOSPHORUS 4.8 mg/dL (2.5-4.6)
[2022-09-26 05:49] LABS: BAND NEUTROPHILS % (MANUAL) 6 %; DIFFERENTIAL COMMENT MANUAL DIFFERENTIAL; LYMPHOCYTES % (MANUAL) 9 %; METAMYELOCYTES % (MANUAL) 1 %; MYELOCYTES % (MANUAL) 1 %; NEUTROPHILS # (MANUAL) 9.3 10^3/uL (1.5-6.6); PLATELET ESTIMATE, MANUAL NORMAL (130-450,000) (NORMAL); RBC MORPHOLOGY (MULTIPLE) NORMAL APPEARANCE (NORMAL)
[2022-09-26] MEDS: LEVOTHYROXINE 100 MCG TABLET PO SCH (06:50)
[2022-09-26] MEDS: BUDESONIDE 0.5 MG/2 ML NEB INH SCH (07:56)
[2022-09-26] MEDS: LEVALBUTEROL 1.25 MG/3 ML NEB INH SCH (07:56)
--- NOTE | 2022-09-26 08:00 | Discharge Plan ---
Discharge Plan Problem Reviewed?: Yes Disposition: Home, Self Care Condition: Stable Prescriptions: Famotidine [Pepcid] 20 mg PO Q48H #30 tab Diet: Low Sodium Activity Restrictions: Activity as Tolerated Shower Restrictions: No Driving Restrictions: No Health Concerns: You are 71 years old and have a history of diabetes, lung cancer, breast cancer and currently untreated lymphoma that became ill with viral pneumonia due to RSV and parainfluenza. This resulted in low oxygen levels, and stress on your body with a new fast heart rate called atrial fibrillation. You have severe valvular heart disease with the 2 valves on the left side of your heart. That valvular heart disease does not allow your body to tolerate fast heart rate. Un fortunately the viral pneumonia and viral infections resulted in the new fast heart rate and you went into severe congestive heart failure. As you have recovered from the viral pneumonia, your heart rate has slowed down, and your oxygen needs have gone away. However any little stress results in severe shortness of breath for you. We spoke about your limited life span, and how sad you are to still have to do so much work in your life in the face of severe heart disease. Plan of Treatment: 1. 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 2. New atrial fibrillation usually results in someone needing blood thinners. However you have severe valvular heart disease so those blood thinners may not be indicated for you. Please discuss this with Dr. Allen. Your atrial fibrillation has resolved and now you are in sinus rhythm. She may decide that you do not need the blood thinners. 3. Dr. Allen explained that your heart rate cannot go above 75 on a regular basis. It does not allow your heart to pump well because of the valves on your left side being so severely narrowed. So try and not to yell, get too emot ional, get into fights, and start letting your family know that you need a lot of help with regards to routine chores of cooking, cleaning, washing laundry, etc. 4. During your stay we had increased her metoprolol. You take a long-acting metoprolol called extended release. We had you on a short acting metoprolol here. By the time you are discharged you are on short acting metoprolol 75 mg twice a day. That is 50 mg more in the course of the day that you would take with your usual long-acting metoprolol of 100 mg a day. I would suggest you continue your metoprolol extended release 100 mg a day. I am going to send a prescription to [facility] for short acting metoprolol 25 mg. On the days that your heart rate is consistently above 75, take the extra 25 mg tablet. You do not have to do that on a daily basis. I am trying to balance keeping your heart rate below 70 versus getting your heart rate to slow below 50. Care Goals: At this time your care goals should center around removing as much stress from your life as possible. I would strongly suggest that you reach out to your family and friends to start helping you more. Your body really cannot take the stress much longer. Assessment: Patient is an alert, oriented, female who is still making her own decisions, as has many difficult decisions to make for her future. No Smoking: If you smoke, Please STOP! Call for help. Follow-up with: Aramis Godfrey MD [Primary Care Provider] -
[2022-09-26] MEDS: METOPROLOL TARTRATE 50 MG TABLET PO SCH (08:41)
[2022-09-26] MEDS: ASPIRIN EC 81 MG TABLET PO SCH (08:42)
[2022-09-26] MEDS: INSULIN LISPRO 300 UNIT/3 ML PEN SUBQ SCH (08:42)
[2022-09-26] MEDS: TORSEMIDE 20 MG TABLET PO SCH (08:42)
[2022-09-26 09:05] VITALS: BP 136/79
--- NOTE | 2022-09-26 10:29 | DISCHARGE SUMMARY ---
"Discharge Summary Admit Date: 09/21/22 Discharge Date: 09/26/22 Discharging Provider: Jamila Montes MD Primary Care Provider: Aramis Godfrey MD Code Status: Do Not Attempt Resuscitation Condition at Discharge: Stable Discharge Disposition: 01 Home, Self Care - DIAGNOSES Discharge Diagnoses with Status of Each Condition: 1. Acute respiratory failure with hypoxia 2. COPD with exacerbation 3. RSV pneumonia with sepsis 4. Acute on chronic renal failure 5. New onset atrial fibrillation, resolved 6. Atrial fibrillation with rapid ventricular rate 7. Acute heart failure due to valvular heart disease 8. Lymphoma 9. Breast cancer 10. History of lung cancer 11. Type 2 DM controlled 12. Anemia of chronic disease - HPI History of Present Illness: This is a 71-year-old female with a history of lung cancer status post RLL lobectomy and chemotherapy, diabetes mellitus diet controlled, CKD grade 4 with baseline creatinine 2.2, anemia of chronic disease, previous thrombocytopenia, COPD not on home oxygen, history of TAVR and mitral valve repair, Hx of endocarditis, and history of breast cancer followed by Dr White in [facility]. Her Podiatrist is Dr. Evelyn Allen and last Echo done about a year ago showed normal LVEF and normally functioning bioprosthetic aortic valve. Her Refrigeration Plant Operator is Dr Leach. Patient been having a cough with shortness of breath and a fever at home for approximately a week. She said she got a URI from her grandchildren. She reports worsening shortness of breath and pleuritic chest pain with coughing. Now there have been 2 days of nausea vomiting and diarrhea. Because of feeling worse the last 2 days she came to the ER. In the ER she is found to have oxygen saturations of 91% on room air, resp rate 26, and was started on 2 L of O2 by nasal cannula. Blood pressure was stable but heart rate is 120-140 and ED provider thought it was from missing her B-lakshmi dose due to N.V. Her chest x-ray was done and shows pulmonary edema as well as bilateral opacities. Her lung exam showed rhonchi and wheezing. She started to receive IV antibiotics of Rocephin and Zithromax in the ED but developed skin redness after the Zithromax which was then stopped. Doxycycline was given. Lasix only 20 mg iv x1 was ordered in the ED. Her labs show a creatinine of 2.5, Troponins of 79 and 77, potassium of 3.3. Her respiratory panel showed COVID-negative but positive for parainfluenza 1 and positive for RSV. Her WBC is 11.9 with 5% Bands, Hgb is 10.4, and plts are 88. Her Lactic Acid is elevated at 2.9. Her EKG was read as sinus tachycardia at a rate of [address]-T changes, that are new since her last EKG of February 2017. The ED provider and I reviewed her EKG and this is atrial flutter, not sinus tachycardia. The ED provider reached out to the Hospitalist team to have this patient admitted for acute respiratory failure with hypoxia, sepsis, pneumonia, CHF exacerbation, COPD exacerbation, new onset Aflutter with RVR, nausea/vomiting/diarrhea with positive parainfluenza and RSV. Her CODE STATUS is Full Code. - Past Medical History Cardiovascular: reports: Hypertension, High cholesterol, Murmur Respiratory: reports: COPD, Other (prior lung cancer with lower lobectomy) Neuro: reports: None Endocrine/Autoimmune: reports: Type 2 diabetes, HyPOthyroidism GI: reports: GERD AUTO OVERHAULER: reports: None : reports: Other HEENT: reports: None Psych: reports: None Musculoskeletal: reports: Osteoarthritis Derm: reports: None MRSA Hx?: No - Past Surgical History General: reports: Appendectomy /AUTO OVERHAULER: reports: Hysterectomy Cardiovascular: reports: Valve replacement - CONSULTS | PROCEDURES Procedures: Chest x-ray is with cardiomegaly, increased vascularity suggestive of edema. Bibasilar opacities blunting the right costophrenic angle. Suggestive of effusion. Retroperitoneal ultrasound is with slightly atrophic bilateral kidneys. No hydronephrosis. No solid appearing lesions. No gross nephrolithiasis. Echocardiogram with normal LV size and systolic function. Ejection fraction 60 to 65%. Dilated RV with mildly reduced systolic function. Moderate to severe tricuspid regurgitation. Status post T MVR with mild regurgitation. Status post AVR with elevated gradients. - HOSPITAL COURSE Hospital Course: The patient was placed in the ICU with severe congestive heart failure. Her heart rate was slowed and at 1 point she needed triple agents. Then she became bradycardic so we backed off on medications to metoprolol only. However there are times that she gets tachycardic in spite of home metoprolol 100 mg a day. While in the hospital she was on short acting metoprolol, 75 mg twice daily. At times she would get excessively bradycardic with that. To compromise, and to keep her heart rate slow, we will send her home on her usual long-acting metoprolol 100 mg a day. And then an extra 25 mg short acting metoprolol on those times where she gets to tachycardic. Long conversation was had with her what job titles mean who described her anatomy at length. The gist of it is that this patient needs to remain euvolemic, and with a slow heart rate. There is not much more that can be done for her from a cardiology perspective. The patient is aware that she is probably living on borrowed time. She needs to reduce the amount of stress in her life considering what is going on with the adoption of 2 grandchildren, and her not being as helpful as she would like. Anxiety was a significant part of her air hunger. She grew to like the BiPAP that we would give her at night for sleep to help her breathe. But we explained for that she did not meet criteria for BiPAP at home or CPAP at home. She was eventually able to be discharged on room air. Acute kidney injury superimposed on chronic kidney disease due to overdiuresis slowly corrected on its own. Her acute respiratory failure with hypoxia resolved. She had a new onset atrial flutter. Serial troponins were flat. Metoprolol controlled her heart rate and she was not a candidate for anticoagulation with a DOAC's considering she has valvular heart disease. I am asking her to please see her primary care provider or Dr. Allen. While we felt that she had a viral pneumonia with RSV and parainfluenza, we were worried about a secondary bacterial pneumonia. Blood cultures were negative. She was treated with ceftriaxone and doxycycline and treatment was stopped after 5 days. COPD exacerbation was treated with Xopenex, and 5 days of steroids. At discharge a long conversation was held with her, her and her brother. I stressed that anxiety and agitation need to be reduced in her life is much as possible. Temperature was 37. Heart rate 82. Blood pressure 136/79. Respirations 17. 97% on room air. When she was first admitted she was in severe respiratory failure requiring BiPAP. At discharge she is able to get up, walk to a chair, walk to the bathroom with mild tachycardia to about 110 and mild tachypnea to about 24 that resolves quickly with rest. She is now sinus arrhythmia, and back to sinus rhythm, not atrial fibrillation. Abdomen is soft, nontender. Lungs have no crackles. Ankles have no edema. Greater than 30 minutes was spent coordinating discharge. - ALLERGIES Allergies/Adverse Reactions: Allergies Allergy/AdvReac Type Severity Reaction Status Date / Time gentamicin Allergy ototoxicity Verified 09/21/22 09:19 azithromycin AdvReac Rash Verified 09/24/22 05:15 - MEDICATIONS Home Medications: Ambulatory Orders Medication Instructions Recorded Confirmed Anastrozole 1 mg PO DAILY 12/21/17 09/22/22 Fluticasone/Salmeterol [Advair 1 puffs INH BID 04/02/18 09/22/22 500-50 Diskus] Multivitamin [Theragran] 1 tab PO DAILY 04/02/18 09/22/22 Torsemide 40 mg PO DAILY 12/08/19 09/22/22 Ascorbic Acid [Vitamin C] 1 cap PO DAILY 03/26/20 09/22/22 Ubidecarenone [Co Q-10] 100 mg PO DAILY 03/26/20 09/22/22 Aspirin EC [Ecotrin] 81 mg PO DAILY 02/24/22 09/22/22 Albuterol Sulfate [Proair 1 - 2 puffs PO BID PRN 09/22/22 09/22/22 Respiclick] Atorvastatin Calcium 40 mg PO HS 09/22/22 09/22/22 Cholecalciferol [Vitamin D3] 1 tab PO DAILY 09/22/22 09/22/22 Cyanocobalamin (Vitamin B-12) 1,000 mcg PO DAILY 09/22/22 09/22/22 [Vitamin B-12] Levothyroxine [Synthroid] 100 mcg PO QDAC 09/22/22 09/22/22 Magnesium Oxide [Mag Ox] 400 mg PO QPM 09/22/22 09/22/22 Metoprolol Succinate 100 mg PO DAILY 09/22/22 09/22/22 Famotidine [Pepcid] 20 mg PO Q48H #30 tab 09/26/22 Metoprolol Tartrate [Lopressor] 25 mg PO DAILY PRN #30 tablet 09/26/22 - LABS Result Diagrams: 09/26/22 05:00 09/26/22 05:00 - SEPSIS Current Stage of Sepsis: Sepsis Sepsis Criteria: Recorded Heart Rate greater than 90 bpm, Recorded Respiratory Rate greater than 20, Respiratory: Increasing oxygen requirements, Metabolic: lactate > 2 mmol/L, Hematologic: platelets < 100,000; INR > 1.5, or a PTT>60 seconds"
== END 2022-09-26 10:30 | disposition home or self-care (01) | DRG 871 ==
LOC: ED 09:10 → ICU 15:37
PROVIDERS: ADMIT Internal Medicine; ATTEND Specialist
DX: J18.9 Pneumonia, unspecified organism (principal); A41.89 Other specified sepsis; J10.08 Influenza due to other identified influenza virus with other specified pneumonia; N18.9 Chronic kidney disease, unspecified; J96.01 Acute respiratory failure with hypoxia; E78.5 Hyperlipidemia, unspecified; J12.1 Respiratory syncytial virus pneumonia; Z20.822 Contact with and (suspected) exposure to COVID-19; E87.6 Hypokalemia; Z85.3 Personal history of malignant neoplasm of breast; E03.9 Hypothyroidism, unspecified; J44.0 Chronic obstructive pulmonary disease with (acute) lower respiratory infection; J44.1 Chronic obstructive pulmonary disease with (acute) exacerbation; Z87.891 Personal history of nicotine dependence; N17.9 Acute kidney failure, unspecified; Y92.538 Other ambulatory health services establishments as the place of occurrence of the external cause; R06.4 Hyperventilation; I48.92 Unspecified atrial flutter; C85.90 Non-Hodgkin lymphoma, unspecified, unspecified site; I13.0 Hypertensive heart and chronic kidney disease with heart failure and stage 1 through stage 4 chronic kidney disease, or unspecified chronic kidney disease; N18.4 Chronic kidney disease, stage 4 (severe); I48.91 Unspecified atrial fibrillation; C50.919 Malignant neoplasm of unspecified site of unspecified female breast; Z85.118 Personal history of other malignant neoplasm of bronchus and lung; Z90.2 Acquired absence of lung [part of]; E11.22 Type 2 diabetes mellitus with diabetic chronic kidney disease; I50.9 Heart failure, unspecified; D63.1 Anemia in chronic kidney disease; D69.6 Thrombocytopenia, unspecified; I35.0 Nonrheumatic aortic (valve) stenosis; I05.0 Rheumatic mitral stenosis; L27.0 Generalized skin eruption due to drugs and medicaments taken internally; T36.3X5A Adverse effect of macrolides, initial encounter; Y92.239 Unspecified place in hospital as the place of occurrence of the external cause
CPT/HCPCS: 36415; 36600; 71046; 76770; 80048; 80053; 81001; 82330; 82803; 83036; 83605; 83690; 83735; 83880; 84100; 84132; 84484; 85025; 85610; 87040; 87070; 87150; 87205; 87633; 93005; 93306; 94640; 94660; 99284; 99285; A9270; J2060; J7626; 81003; 87086

== ENCOUNTER 2022-10-21 18:26 | Outpatient (CLI) | payer MEDICARE, OTHER | END 2022-10-21 23:59 | disposition EMS.NT | LOC: EMS 18:26 | DX: R50.9 Fever, unspecified (principal); R05.9 Cough, unspecified ==

== ENCOUNTER 2023-01-22 10:40 | Emergency (ER) | payer MEDICARE, OTHER ==
[2023-01-22 10:52] VITALS: BP 108/36
--- OUTSIDE RECORDS SUMMARY | 2023-01-22 11:15 | EXTERNAL MEDICAL SUMMARY RPT | Continuity of Care Document ---
:1950 Author Organization [facility] Address [address] [place] [address] Phone Care Team Providers Name Role Phone Unavailable Unavailable Unavailable Aramis Godfrey Unavailable Unavailable Allergies and Intolerances date description facility type (no date) gentamicin [facility] (unknown) Encounters No information. Functional Status No information. Immunizations No information. Medications No information. Problems date description facility 2022-12-13 00:00 Acute on chronic congestive heart failu re [facility] 2022-12-13 00:00 Constipation [facility] 2022-12-13 00:00 [facility]:00 Chronic shortness of breath [facility] p[facility] Procedures date description facility 2022-12-13 00:00 Computed tomography of abdomen and pelv is [facility] without contrast 2022-12-13 00:00 X-ray of chest, single view [facility] 2022-12-13 00:00 XR abdomen 1V [facility] Results/Labs test date author facility value unit interpret ation Result panel 1 (unknown) (no date) (unknown) [place] [facility]) Result panel 2 (unknown) (no date) (unknown) [place] [facility]) Result panel 3 (unknown) (no date) (unknown) [place] [facility]) Result panel 4 (unknown) (no date) (unknown[facility] [place] [facility]) Result panel 5 (unknown) (no date) (unknown[facility]) Result panel 6 (unknown) (no date) (unknown[facility]) Result panel 7 (unknown) (no date) (unknown[facility]) Result panel 8 (unknown) (no date) (unknown[facility]) Result panel 9 (unknown) (no date) (unknown[facility]) Result panel 10 (unknown) (no date) (unknown[facility]) Result panel 11 (unknown) (no date) (unknown[facility]) Result panel 12 (unknown) (no date) (unknown[facility]) Result panel 13 (unknown) (no date) (unknown[facility]) Result panel 14 (unknown) (no date) (unknown[facility]) Result panel 15 (unknown) (no date) (unknown[facility]) Result panel 16 (unknown) (no date) (unknown[facility]) Result panel 17 (unknown) (no date) (unknown[facility]) Result panel 18 (unknown) (no date) (unknown[facility]) Result panel 19 (unknown) (no date) (unknown[facility]) Result panel 20 (unknown) (no date) (unknown[facility]) Result panel 21 (unknown) (no date) (unknown[facility]) Result panel 22 (unknown) (no date) (unknown[facility]) Result panel 23 (unknown) (no date) (unknown[facility]) Result panel 24 (unknown) (no date) (unknown[facility]) Result panel 25 (unknown) (no date) (unknown[facility]) Result panel 26 (unknown) (no date) (unknown[facility]) Result panel 27 (unknown) (no date) (unknown[facility]) Result panel 28 (unknown) (no date) (unknown[facility]) Result panel 29 (unknown) (no date) (unknown[facility]) Result panel 30 (unknown) (no date) (unknown[facility]) Result panel 31 (unknown) (no date) (unknown[facility]) Result panel 32 (unknown) (no date) (unknown[facility]) Result panel 33 (unknown) (no date) (unknown[facility]) Result panel 34 (unknown) (no date) (unknown[facility]) Result panel 35 (unknown) (no date) (unknown[facility]) Result panel 36 (unknown) (no date) (unknown[facility]) Result panel 37 (unknown) (no date) (unknown[facility]) Result panel 38 (unknown) (no date) (unknown[facility]) Result panel 39 (unknown) (no date) (unknown[facility]) Result panel 40 (unknown) (no date) (unknown[facility]) Result panel 41 (unknown) (no date) (unknown[facility]) Result panel 42 (unknown) (no date) (unknown[facility]) Result panel 43 (unknown) (no date) (unknown[facility]) Result panel 44 (unknown) (no date) (unknown[facility]) Result panel 45 (unknown) (no date) (unknown[facility]) Result panel 46 (unknown) (no date) (unknown[facility]) Result panel 47 (unknown) (no date) (unknown[facility]) Result panel 48 (unknown) (no date) (unknown[facility]) Result panel 49 (unknown) (no date) (unknown[facility]) Result panel 50 (unknown) (no date) (unknown[facility]) Result panel 51 (unknown) (no date) (unknown[facility]) Result panel 52 (unknown) (no date) (unknown[facility]) Result panel 53 (unknown) (no date) (unknown[facility]) Result panel 54 (unknown) (no date) (unknown[facility]) Result panel 55 (unknown) (no date) (unknown[facility]) Result panel 56 (unknown) (no date) (unknown[facility]) Result panel 57 (unknown) (no date) (unknown[facility]) Result panel 58 (unknown) (no date) (unknown[facility]) Result panel 59 (unknown) (no date) (unknown[facility]) Result panel 60 (unknown) (no date) (unknown[facility]) Result panel 61 (unknown) (no date) (unknown[facility]) Result panel 62 (unknown) (no date) (unknown[facility]) Result panel 63 (unknown) (no date) (unknown[facility]) Result panel 64 (unknown) (no date) (unknown[facility]) Result panel 65 (unknown) (no date) (unknown[facility]) Result panel 66 (unknown) (no date) (unknown[facility]) Result panel 67 (unknown) (no date) (unknown[facility]) Result panel 68 (unknown) (no date) (unknown[facility]) Result panel 69 (unknown) (no date) (unknown[facility]) Result panel 70 (unknown) (no date) (unknown[facility]) Result panel 71 (unknown) (no date) (unknown[facility]) Result panel 72 (unknown) (no date) (unknown[facility]) Result panel 73 (unknown) (no date) (unknown[facility]) Result panel 74 (unknown) (no date) (unknown[facility]) Result panel 75 (unknown) (no date) (unknown[facility]) Result panel 76 (unknown) (no date) (unknown[facility]) Result panel 77 (unknown) (no date) (unknown[facility]) Result panel 78 (unknown) (no date) (unknown[facility]) Result panel 79 (unknown) (no date) (unknown[facility]) Result panel 80 (unknown) (no date) (unknown[facility]) Result panel 81 (unknown) (no date) (unknown[facility]) Result panel 82 (unknown) (no date) (unknown[facility]) Result panel 83 (unknown) (no date) (unknown[facility]) Result panel 84 (unknown) (no date) (unknown[facility]) Result panel 85 (unknown) (no date) (unknown[facility]) Result panel 86 (unknown) (no date) (unknown[facility]) Result panel 87 (unknown) (no date) (unknown[facility]) Result panel 88 (unknown) (no date) (unknown[facility]) Result panel 89 (unknown) (no date) (unknown[facility]) Result panel 90 (unknown) (no date) (unknown[facility]) Result panel 91 (unknown) (no date) (unknown[facility]) Result panel 92 (unknown) (no date) (unknown[facility]) Result panel 93 (unknown) (no date) (unknown[facility]) Result panel 94 (unknown) (no date) (unknown[facility]) Result panel 95 (unknown) (no date) (unknown[facility]) Result panel 96 (unknown) (no date) (unknown[facility]) Result panel 97 (unknown) (no date) (unknown[facility]) Result panel 98 (unknown) (no date) (unknown[facility]) Result panel 99 (unknown) (no date) (unknown[facility]) Result panel 100 (unknown) (no date) (unknown[facility]) Result panel 101 (unknown) (no date) (unknown[facility]) Result panel 102 (unknown) (no date) (unknown[facility]) Result panel 103 (unknown) (no date) (unknown[facility]) Result panel 104 (unknown) (no date) (unknown[facility]) Result panel 105 (unknown) (no date) (unknown[facility]) Result panel 106 (unknown) (no date) (unknown[facility]) Result panel 107 (unknown) (no date) (unknown[facility]) Result panel 108 (unknown) (no date) (unknown[facility]) Result panel 109 (unknown) (no date) (unknown[facility]) Result panel 110 (unknown) (no date) (unknown[facility]) Result panel 111 (unknown) (no date) (unknown[facility]) Result panel 112 (unknown) (no date) (unknown[facility]) Result panel 113 (unknown) (no date) (unknown[facility]) Result panel 114 (unknown) (no date) (unknown[facility]) Result panel 115 (unknown) (no date) (unknown[facility]) Result panel 116 (unknown) (no date) (unknown[facility]) Result panel 117 (unknown) (no date) (unknown[facility]) Result panel 118 (unknown) (no date) (unknown[facility]) Result panel 119 (unknown) (no date) (unknown[facility]) Result panel 120 (unknown) (no date) (unknown[facility]) Result panel 121 (unknown) (no date) (unknown[facility]) Result panel 122 (unknown) (no date) (unknown[facility]) Result panel 123 (unknown) (no date) (unknown[facility]) Result panel 124 (unknown) (no date) (unknown[facility]) Result panel 125 (unknown) (no date) (unknown[facility]) Result panel 126 (unknown) (no date) (unknown[facility]) Result panel 127 (unknown) (no date) (unknown[facility]) Result panel 128 (unknown) (no date) (unknown[facility]) Result panel 129 (unknown) (no date) (unknown[facility]) Result panel 130 (unknown) (no date) (unknown[facility]) Result panel 131 (unknown) (no date) (unknown[facility]) Result panel 132 (unknown) (no date) (unknown[facility]) Result panel 133 (unknown) (no date) (unknown[facility]) Result panel 134 (unknown) (no date) (unknown[facility]) Result panel 135 (unknown) (no date) (unknown[facility]) Result panel 136 (unknown) (no date) (unknown[facility]) Result panel 137 (unknown) (no date) (unknown[facility]) Result panel 138 (unknown) (no date) (unknown[facility]) Result panel 139 (unknown) (no date) (unknown[facility]) Result panel 140 (unknown) (no date) (unknown[facility]) Result panel 141 (unknown) (no date) (unknown[facility]) Result panel 142 (unknown) (no date) (unknown[facility]) Result panel 143 (unknown) (no date) (unknown[facility]) Result panel 144 (unknown) (no date) (unknown[facility]) Result panel 145 (unknown) (no date) (unknown[facility]) Result panel 146 (unknown) (no date) (unknown[facility]) Result panel 147 (unknown) (no date) (unknown[facility]) Result panel 148 (unknown) (no date) (unknown[facility]) Result panel 149 (unknown) (no date) (unknown[facility]) Result panel 150 (unknown) (no date) (unknown[facility]) Result panel 151 (unknown) (no date) (unknown[facility]) Result panel 152 (unknown) (no date) (unknown[facility]) Result panel 153 (unknown) (no date) (unknown[facility]) Result panel 154 (unknown) (no date) (unknown) [facility]) Result panel 155 (unknown) (no date) (unknown[facility]) Result panel 156 (unknown) (no date) (unknown[facility]) Result panel 157 (unknown) (no date) (unknown[facility]) Result panel 158 (unknown) (no date) (unknown[facility]) Result panel 159 (unknown) (no date) (unknown[facility]) Result panel 160 (unknown) (no date) (unknown) [facility]) Result panel 161 (unknown) (no date) (unknown) [facility]) Result panel 162 (unknown) (no date) (unknown[facility]) Result panel 163 (unknown) (no date) (unknown) [facility]) Result panel 164 (unknown) (no date) (unknown[facility]) Result panel 165 (unknown) (no date) (unknown[facility]) Result panel 166 (unknown) (no date) (unknown[facility]) Result panel 167 (unknown) (no date) (unknown) [facility]) Result panel 168 (unknown) (no date) (unknown) [facility]) Result panel 169 (unknown) (no date) (unknown) [facility]) Result panel 170 (unknown) (no (unknown) (unknown) (no value) (units (unk nown) date) unknown) (unknown) (no (unknown) (unknown) 12/13/22 (units (unkno wn) date) unknown) (unknown) (no (unknown) (unknown) [address] [place] [address] (units (unknown) date) unknown) (unknown) (no (unknown) (unknown) [id number] (units (unkno wn) date) unknown) (unknown) (no (unknown) (unknown) Accession Number: (units (unknown) date) [id number] unknown) (unknown) (no (unknown) (unknown) Age/Sex: 72 / F (units (unknown) date) Date of Service: unknown) (unknown) (no (unknown) (unknown) [place] (units ( unknown) date) [id number] unknown) (unknown) (no (unknown) (unknown) Approved by: (units (u nknown) date) rickie Watters M.D. on 12/13/2022 at 10:50 (unknown) (no (unknown) (unknown) Bones: No (units (unkn own) date) suspicious bony unknown) lesions. Age-appropriate bony degenerative changes (unknown) (no (unknown) (unknown) Bowel: Bowel gas (units (unknown) date) pattern is normal. unknown) There is a mild amount of stool seen (unknown) (no (unknown) (unknown) COMPARISON: None. (units (unknown) date) unknown) (unknown) (no (unknown) (unknown) : 1950 (units (unknown) date) Acct:[id number] unknown) (unknown) (no (unknown) (unknown) Dictated by: (units (u nknown) date) Connor Kumari, rickie Guzman on 12/13/2022 at 10:49 (unknown) (no (unknown) (unknown) FINDINGS: (units (unkn own) date) unknown) (unknown) (no (unknown) (unknown) IMPRESSION: There (units (unknown) date) is only a mild unknown) amount of stool seen within the distal colon. (unknown) (no (unknown) (unknown) INDICATIONS: no (units (unknown) date) bm, constipation unknown) (unknown) (no (unknown) (unknown) [facility] (units (unknown) date) unknown) (unknown) (no (unknown) (unknown) Loc: ED (units (unkno wn) date) unknown) (unknown) (no (unknown) (unknown) Ordering (units (unkno wn) date) Provider: unknown) Jennifer Guallpa D.O. (unknown) (no (unknown) (unknown) PROCEDURE: XR (units ( unknown) date) ABDOMEN 1V unknown) (unknown) (no (unknown) (unknown) Patient: (units (unkno wn) date) Gómez Walls MR#: unknown) [id number] (unknown) (no (unknown) (unknown) Postoperative and (units (unknown) date) degenerative unknown) changes are seen. (unknown) (no (unknown) (unknown) Procedure: XR (units ( unknown) date) abdomen 1V unknown) (unknown) (no (unknown) (unknown) Signed (units (unkno wn) date) unknown) (unknown) (no (unknown) (unknown) Small right-sided (units (unknown) date) pleural effusion. unknown) (unknown) (no (unknown) (unknown) Soft tissues: No (units (unknown) date) suspicious unknown) abdominal calcifications. Visualized solid organ (unknown) (no (unknown) (unknown) Surgical changes (units (unknown) date) and devices: A unknown) percutaneously placed aortic valve replacement (unknown) (no (unknown) (unknown) TECHNIQUE: One (units (unknown) date) view of the unknown) abdomen acquired. (unknown) (no (unknown) (unknown) XRay Report (units (un known) date) unknown) (unknown) (no (unknown) (unknown) appear normal in (units (unknown) date) size. There is a unknown) small right-sided pleural effusion. (unknown) (no (unknown) (unknown) are seen. (units (unkn own) date) unknown) (unknown) (no (unknown) (unknown) can be (units (unkno wn) date) unknown) (unknown) (no (unknown) (unknown) contours (units (unkno wn) date) unknown) (unknown) (no (unknown) (unknown) distal colon. (units ( unknown) date) unknown) (unknown) (no (unknown) (unknown) seen. (units (unkno wn) date) Cholecystectomy unknown) clips are seen. Left breast clips are seen. (unknown) (no (unknown) (unknown) within the (units (unk nown) date) unknown) Result panel 171 (unknown) (no (unknown) (unknown) (no value) (units (unk nown) date) unknown) (unknown) (no (unknown) (unknown) 12/13/22 11:27 (units (unknown) date) unknown) (unknown) (no (unknown) (unknown) 12/13/22 (units (unkno wn) date) unknown) (unknown) (no (unknown) (unknown) 1 inh INHALATION (units (unknown) date) BID unknown) (unknown) (no (unknown) (unknown) 1 mg PO DAILY (units ( unknown) date) unknown) (unknown) (no (unknown) (unknown) 100 mcg PO DAILY (units (unknown) date) unknown) (unknown) (no (unknown) (unknown) 100 mg PO DAILY (units (unknown) date) Qty: 90 0RF unknown) (unknown) (no (unknown) (unknown) 100 mg PO DAILY (units (unknown) date) unknown) (unknown) (no (unknown) (unknown) 10:16 (units (unkno wn) date) unknown) (unknown) (no (unknown) (unknown) 3097 (units (unkno wn) date) unknown) (unknown) (no (unknown) (unknown) 325 mg PO DAILY (units (unknown) date) unknown) (unknown) (no (unknown) (unknown) 40 mg PO BEDTIME (units (unknown) date) unknown) (unknown) (no (unknown) (unknown) 40 mg PO DAILY (units (unknown) date) unknown) (unknown) (no (unknown) (unknown) 64 mg PO DAILY (units (unknown) date) unknown) (unknown) (no (unknown) (unknown) 81 mg PO DAILY (units (unknown) date) unknown) (unknown) (no (unknown) (unknown) Age/Sex: 72 / F (units (unknown) date) unknown) (unknown) (no (unknown) (unknown) Allergies (units (unkn own) date) unknown) (unknown) (no (unknown) (unknown) Allergy/AdvReac (units (unknown) date) Type Severity unknown) Reaction Status Date / Time (unknown) (no (unknown) (unknown) Blood Pressure (units (unknown) date) 191/97 H 12/13/22 unknown) 10:16 (unknown) (no (unknown) (unknown) Blood Pressure (units (unknown) date) 191/97 H unknown) (unknown) (no (unknown) (unknown) Chief Complaint: (units (unknown) date) Back Pain/Injury unknown) (unknown) (no (unknown) (unknown) Course (units (unkno wn) date) unknown) (unknown) (no (unknown) (unknown) : 1950 (units (unknown) date) Acct:[id number] unknown) (unknown) (no (unknown) (unknown) Date of Service: (units (unknown) date) 12/13/22 unknown) (unknown) (no (unknown) (unknown) Departure (units (unkn own) date) unknown) (unknown) (no (unknown) (unknown) Discharge Plan (units (unknown) date) unknown) (unknown) (no (unknown) (unknown) ED Orders (units (unkn own) date) unknown) (unknown) (no (unknown) (unknown) ER Physician: (units ( unknown) date) Olga Talbert unknown) P.A-C (unknown) (no (unknown) (unknown) Emergency Report (units (unknown) date) unknown) (unknown) (no (unknown) (unknown) Exam (units (unkno wn) date) unknown) (unknown) (no (unknown) (unknown) General (units (unkno wn) date) unknown) (unknown) (no (unknown) (unknown) HPI - Back (units (unk nown) date) Pain/Injury unknown) (unknown) (no (unknown) (unknown) Home Medications (units (unknown) date) unknown) (unknown) (no (unknown) (unknown) Initial Vital (units ( unknown) date) Signs unknown) (unknown) (no (unknown) (unknown) Initial Vital (units ( unknown) date) Signs: unknown) (unknown) (no (unknown) (unknown) [facility] (units (unknown) date) [address] [place] [address] unknown) [place] [address] (unknown) (no (unknown) (unknown) Aramis Godfrey, (units (unknown) date) MD [Primary Care unknown) Provider] (unknown) (no (unknown) (unknown) Medication (units (unk nown) date) Instructions unknown) Recorded Confirmed (unknown) (no (unknown) (unknown) Medication (units (unk nown) date) Instructions unknown) Recorded (unknown) (no (unknown) (unknown) No Action (units (unkn own) date) unknown) (unknown) (no (unknown) (unknown) Ordered: (units (unkno wn) date) unknown) (unknown) (no (unknown) (unknown) Orders (units (unkno wn) date) unknown) (unknown) (no (unknown) (unknown) Oxygen Delivery (units (unknown) date) Method 12/13/22 unknown) 10:16 (unknown) (no (unknown) (unknown) Oxygen Delivery (units (unknown) date) Method Room Air unknown) (unknown) (no (unknown) (unknown) Patient History (units (unknown) date) unknown) (unknown) (no (unknown) (unknown) Patient: (units (unkno wn) date) Gómez Walls MR#: unknown) [id number] (unknown) (no (unknown) (unknown) Prescriptions: (units (unknown) date) unknown) (unknown) (no (unknown) (unknown) Previous Rx's (units ( unknown) date) unknown) (unknown) (no (unknown) (unknown) Pulse Oximetry (units (unknown) date) 96 12/13/22 10:16 unknown) (unknown) (no (unknown) (unknown) Pulse Oximetry (units (unknown) date) 96 unknown) (unknown) (no (unknown) (unknown) Pulse Rate 60 (units ( unknown) date) 12/13/22 10:16 unknown) (unknown) (no (unknown) (unknown) Pulse Rate 60 (units ( unknown) date) unknown) (unknown) (no (unknown) (unknown) Referrals: (units (unk nown) date) unknown) (unknown) (no (unknown) (unknown) Related Data (units (u nknown) date) unknown) (unknown) (no (unknown) (unknown) Respiratory Rate (units (unknown) date) 18 12/13/22 10:16 unknown) (unknown) (no (unknown) (unknown) Respiratory Rate (units (unknown) date) 18 unknown) (unknown) (no (unknown) (unknown) Signed By: (units (unk nown) date) unknown) (unknown) (no (unknown) (unknown) Smoking Status: (units (unknown) date) Former smoker unknown) (unknown) (no (unknown) (unknown) Social History (units (unknown) date) (Reviewed unknown) 10/15/22 @ 18:46 by Ciara Pacheoc DO) (unknown) (no (unknown) (unknown) Source: patient (units (unknown) date) unknown) (unknown) (no (unknown) (unknown) Stated (units (unkno wn) date) Complaint: unknown) Constipation no BM x7days (unknown) (no (unknown) (unknown) Substance Use (units ( unknown) date) Type: does not unknown) use (unknown) (no (unknown) (unknown) Temperature 97.7 (units (unknown) date) F 12/13/22 10:16 unknown) (unknown) (no (unknown) (unknown) Temperature 97.7 (units (unknown) date) F unknown) (unknown) (no (unknown) (unknown) Time Seen by (units (u nknown) date) Provider: unknown) 12/13/22 12:32 (unknown) (no (unknown) (unknown) Vital Signs - 8 (units (unknown) date) hr unknown) (unknown) (no (unknown) (unknown) Vital Signs (units (un known) date) unknown) (unknown) (no (unknown) (unknown) Vital signs: (units (u nknown) date) unknown) (unknown) (no (unknown) (unknown) XR abdomen 1V (units ( unknown) date) Stat unknown) (unknown) (no (unknown) (unknown) alcohol intake (units (unknown) date) frequency: unknown) holidays/special occasions only (unknown) (no (unknown) (unknown) alcohol intake: (units (unknown) date) current unknown) (unknown) (no (unknown) (unknown) allopurinol 100 (units (unknown) date) mg tablet 100 mg unknown) PO DAILY 10/15/22 10/15/22 (unknown) (no (unknown) (unknown) allopurinol 100 (units (unknown) date) mg tablet unknown) (unknown) (no (unknown) (unknown) anastrozole 1 mg (units (unknown) date) tablet 1 mg PO unknown) DAILY 10/15/22 10/15/22 (unknown) (no (unknown) (unknown) anastrozole 1 mg (units (unknown) date) tablet unknown) (unknown) (no (unknown) (unknown) aspirin 81 mg (units ( unknown) date) Capsule unknown) (unknown) (no (unknown) (unknown) aspirin 81 mg (units ( unknown) date) capsule 81 mg PO unknown) DAILY 10/15/22 10/15/22 (unknown) (no (unknown) (unknown) atorvastatin 40 (units (unknown) date) mg tablet 40 mg unknown) PO BEDTIME 10/15/22 10/15/22 (unknown) (no (unknown) (unknown) atorvastatin 40 (units (unknown) date) mg tablet unknown) (unknown) (no (unknown) (unknown) device (units (unkno wn) date) unknown) (unknown) (no (unknown) (unknown) ferrous sulfate (units (unknown) date) 325 mg (65 mg 325 unknown) mg PO DAILY 10/15/22 10/15/22 (unknown) (no (unknown) (unknown) ferrous sulfate (units (unknown) date) 325 mg (65 mg unknown) iron) Tablet (unknown) (no (unknown) (unknown) fluticasone 500 (units (unknown) date) mcg-salmeterol 50 unknown) 1 inh inhalation BID 10/15/22 10/15/22 (unknown) (no (unknown) (unknown) fluticasone (units (un known) date) propion-salmetero unknown) l [Advair Diskus] 500-50 mcg/dose blister with (unknown) (no (unknown) (unknown) gentamicin (units (unk nown) date) Allergy Verified unknown) 10/15/22 17:02 (unknown) (no (unknown) (unknown) household (units (unkn own) date) members: spouse unknown) (unknown) (no (unknown) (unknown) inhalation (units (unk nown) date) (Advair Diskus) unknown) (unknown) (no (unknown) (unknown) iron) tablet (units (u nknown) date) unknown) (unknown) (no (unknown) (unknown) levothyroxine (units ( unknown) date) 100 mcg tablet unknown) 100 mcg PO DAILY 10/15/22 10/15/22 (unknown) (no (unknown) (unknown) levothyroxine (units ( unknown) date) 100 mcg tablet unknown) (unknown) (no (unknown) (unknown) magnesium (units (unkn own) date) chloride 64 mg 64 unknown) mg PO DAILY 10/15/22 10/15/22 (unknown) (no (unknown) (unknown) magnesium (units (unkn own) date) chloride 64 mg unknown) Tablet Extended Release (unknown) (no (unknown) (unknown) mcg/dose blistr (units (unknown) date) powdr for unknown) (unknown) (no (unknown) (unknown) metoprolol (units (unk nown) date) succinate 100 mg unknown) 100 mg PO DAILY #90 tabs 10/18/22 (unknown) (no (unknown) (unknown) metoprolol (units (unk nown) date) succinate 100 mg unknown) tablet extended release 24 hr (unknown) (no (unknown) (unknown) tablet,extended (units (unknown) date) release 24 hr unknown) (unknown) (no (unknown) (unknown) tablet,extended (units (unknown) date) release unknown) (unknown) (no (unknown) (unknown) torsemide 20 mg (units (unknown) date) tablet 40 mg PO unknown) DAILY 10/15/22 10/15/22 (unknown) (no (unknown) (unknown) torsemide 20 mg (units (unknown) date) tablet unknown) Result panel 172 (unknown) (no date) (unknown) (unknown) 0 /ul (unkn own) (unknown) (no date) (unknown) (unknown) 0.6 % (unkn own) (unknown) (no date) (unknown) (unknown) 100 /ul (unkn own) (unknown) (no date) (unknown) (unknown) 1000 /ul (unkn own) (unknown) (no date) (unknown) (unknown) 102.6 fl (unkn own) (unknown) (no date) (unknown) (unknown) 16.0 % (unkn own) (unknown) (no date) (unknown) (unknown) 19.0 % (unkn own) (unknown) (no date) (unknown) (unknown) 19.9 % (unkn own) (unknown) (no date) (unknown) (unknown) 2.3 % (unkn own) (unknown) (no date) (unknown) (unknown) 2.92 x10 6/ul (unkn own) (unknown) (no date) (unknown) (unknown) 29.9 % (unkn own) (unknown) (no date) (unknown) (unknown) 32.1 % (unkn own) (unknown) (no date) (unknown) (unknown) 32.9 pg (unkn own) (unknown) (no date) (unknown) (unknown) 3300 /ul (unkn own) (unknown) (no date) (unknown) (unknown) 5.3 x10 3/ul (unkn own) (unknown) (no date) (unknown) (unknown) 62.1 % (unkn own) (unknown) (no date) (unknown) (unknown) 800 /ul (unkn own) (unknown) (no date) (unknown) (unknown) 86 x10 3/ul (unkn own) (unknown) (no date) (unknown) (unknown) 9.6 g/dl (unkn own) Result panel 173 (unknown) (no date) (unknown) (unknown) 0.9 mg/dl (unkn own) (unknown) (no date) (unknown) (unknown) 1.0 (units unknown) (unknown) (unknown) (no date) (unknown) (unknown) 103 mmol/l (unkn own) (unknown) (no date) (unknown) (unknown) 130 u/l (unkn own) (unknown) (no date) (unknown) (unknown) 132 mg/dl (unkn own) (unknown) (no date) (unknown) (unknown) 132 mg/dl (unkn own) (unknown) (no date) (unknown) (unknown) 138 mmol/l (unkn own) (unknown) (no date) (unknown) (unknown) 15.7 (units unknown) (unknown) (unknown) (no date) (unknown) (unknown) 2.35 mg/dl (unkn own) (unknown) (no date) (unknown) (unknown) 21 iu/l (unkn own) (unknown) (no date) (unknown) (unknown) 21 ml/min (unkn own) (unknown) (no date) (unknown) (unknown) 21 ml/min (unkn own) (unknown) (no date) (unknown) (unknown) 25 mmol/l (unkn own) (unknown) (no date) (unknown) (unknown) 3.8 g/dl (unkn own) (unknown) (no date) (unknown) (unknown) 3.9 g/dl (unkn own) (unknown) (no date) (unknown) (unknown) 37 mg/dl (unkn own) (unknown) (no date) (unknown) (unknown) 4.1 mmol/l (unkn own) (unknown) (no date) (unknown) (unknown) 42 iu/l (unkn own) (unknown) (no date) (unknown) (unknown) 7.7 g/dl (unkn own) (unknown) (no date) (unknown) (unknown) 8.5 mg/dl (unkn own) Result panel 174 (unknown) (no date) (unknown) (unknown) 201 u/l (unkn own) Result panel 175 (unknown) (no (unknown) (unknown) (no value) (units (unk nown) date) unknown) (unknown) (no (unknown) (unknown) 12/13/22 (units (unkno wn) date) 12/13/22 12/13/22 unknown) Range/Units (unknown) (no (unknown) (unknown) 12/13/22 11:27 (units (unknown) date) unknown) (unknown) (no (unknown) (unknown) 12/13/22 12:35 (units (unknown) date) unknown) (unknown) (no (unknown) (unknown) 12/13/22 13:15 (units (unknown) date) unknown) (unknown) (no (unknown) (unknown) 12/13/22 (units (unkno wn) date) unknown) (unknown) (no (unknown) (unknown) 1 inh INHALATION (units (unknown) date) BID unknown) (unknown) (no (unknown) (unknown) 1 mg PO DAILY (units ( unknown) date) unknown) (unknown) (no (unknown) (unknown) 100 mcg PO DAILY (units (unknown) date) unknown) (unknown) (no (unknown) (unknown) 100 mg PO DAILY (units (unknown) date) Qty: 90 0RF unknown) (unknown) (no (unknown) (unknown) 100 mg PO DAILY (units (unknown) date) unknown) (unknown) (no (unknown) (unknown) 10:16 (units (unkno wn) date) unknown) (unknown) (no (unknown) (unknown) 12:35 12:35 (units (un known) date) 12:35 unknown) (unknown) (no (unknown) (unknown) 3097 (units (unkno wn) date) unknown) (unknown) (no (unknown) (unknown) 325 mg PO DAILY (units (unknown) date) unknown) (unknown) (no (unknown) (unknown) 40 mg PO BEDTIME (units (unknown) date) unknown) (unknown) (no (unknown) (unknown) 40 mg PO DAILY (units (unknown) date) unknown) (unknown) (no (unknown) (unknown) 64 mg PO DAILY (units (unknown) date) unknown) (unknown) (no (unknown) (unknown) 81 mg PO DAILY (units (unknown) date) unknown) (unknown) (no (unknown) (unknown) ALT 21 (<35) (units (u nknown) date) IU/L unknown) (unknown) (no (unknown) (unknown) AST 42 H (14-36) (units (unknown) date) IU/L unknown) (unknown) (no (unknown) (unknown) Age/Sex: 72 / F (units (unknown) date) unknown) (unknown) (no (unknown) (unknown) Albumin 3.8 (units (un known) date) (3.5-5.0) g/dL unknown) (unknown) (no (unknown) (unknown) Albumin/Globulin (units (unknown) date) Ratio 1.0 unknown) (1.0-2.8) (unknown) (no (unknown) (unknown) Alkaline (units (unkno wn) date) Phosphatase 130 H unknown) (38-126) U/L (unknown) (no (unknown) (unknown) Allergies (units (unkn own) date) unknown) (unknown) (no (unknown) (unknown) Allergy/AdvReac (units (unknown) date) Type Severity unknown) Reaction Status Date / Time (unknown) (no (unknown) (unknown) BUN 37 H (7-17) (units (unknown) date) mg/dL unknown) (unknown) (no (unknown) (unknown) BUN/Creatinine (units (unknown) date) Ratio 15.7 (6-22) unknown) (unknown) (no (unknown) (unknown) Baso # (Auto) 0 (units (unknown) date) (0-100) /uL unknown) (unknown) (no (unknown) (unknown) Baso % (Auto) (units ( unknown) date) 0.6 (0-2) % unknown) (unknown) (no (unknown) (unknown) Bedside Urine (units ( unknown) date) Bilirubin - unknown) Negative (unknown) (no (unknown) (unknown) Bedside Urine (units ( unknown) date) Glucose Negative unknown) (unknown) (no (unknown) (unknown) Bedside Urine (units ( unknown) date) Ketone - Negative unknown) (unknown) (no (unknown) (unknown) Bedside Urine (units ( unknown) date) Leukocytes +/- 15 unknown) (unknown) (no (unknown) (unknown) Bedside Urine (units ( unknown) date) Nitrite - unknown) Negative (unknown) (no (unknown) (unknown) Bedside Urine (units ( unknown) date) Occult Blood - unknown) Negative (unknown) (no (unknown) (unknown) Bedside Urine (units ( unknown) date) Protein + 30 unknown) (unknown) (no (unknown) (unknown) Bedside Urine (units ( unknown) date) Urobilinogen - unknown) Negative (unknown) (no (unknown) (unknown) Bedside Urine pH (units (unknown) date) 6.5 unknown) (unknown) (no (unknown) (unknown) Blood Pressure (units (unknown) date) 191/97 H 12/13/22 unknown) 10:16 (unknown) (no (unknown) (unknown) Blood Pressure (units (unknown) date) 191/97 H unknown) (unknown) (no (unknown) (unknown) CBC Auto Diff (units ( unknown) date) [Complete Blood unknown) Count AUTO DIFF] Stat (unknown) (no (unknown) (unknown) CMP (units (unkno wn) date) [Comprehensive unknown) Metabolic Panel] Stat (unknown) (no (unknown) (unknown) Calcium 8.5 (units (un known) date) (8.4-10.2) mg/dL unknown) (unknown) (no (unknown) (unknown) Carbon Dioxide (units (unknown) date) 25 (22-32) mmol/L unknown) (unknown) (no (unknown) (unknown) Chief Complaint: (units (unknown) date) Back Pain/Injury unknown) (unknown) (no (unknown) (unknown) Chloride 103 (units (u nknown) date) (98-107) mmol/L unknown) (unknown) (no (unknown) (unknown) Course (units (unkno wn) date) unknown) (unknown) (no (unknown) (unknown) Creatinine 2.35 (units (unknown) date) H (0.52-1.04) unknown) mg/dL (unknown) (no (unknown) (unknown) : 1950 (units (unknown) date) Acct:[id number] unknown) (unknown) (no (unknown) (unknown) Date of Service: (units (unknown) date) 12/13/22 unknown) (unknown) (no (unknown) (unknown) Departure (units (unkn own) date) unknown) (unknown) (no (unknown) (unknown) Discharge Plan (units (unknown) date) unknown) (unknown) (no (unknown) (unknown) ED Orders (units (unkn own) date) unknown) (unknown) (no (unknown) (unknown) ER Physician: (units ( unknown) date) Olga Talbert unknown) P.A-C (unknown) (no (unknown) (unknown) Emergency Report (units (unknown) date) unknown) (unknown) (no (unknown) (unknown) Eos # (Auto) 100 (units (unknown) date) (0-450) /uL unknown) (unknown) (no (unknown) (unknown) Eos % (Auto) 2.3 (units (unknown) date) (2-4) % unknown) (unknown) (no (unknown) (unknown) Esterase (units (unkno wn) date) unknown) (unknown) (no (unknown) (unknown) Estimated GFR 21 (units (unknown) date) L (>60) mL/min unknown) (unknown) (no (unknown) (unknown) Exam (units (unkno wn) date) unknown) (unknown) (no (unknown) (unknown) General (units (unkno wn) date) unknown) (unknown) (no (unknown) (unknown) Globulin 3.9 (units (u nknown) date) (1.7-4.1) g/dL unknown) (unknown) (no (unknown) (unknown) Glucose 132 H (units ( unknown) date) (80-110) mg/dL unknown) (unknown) (no (unknown) (unknown) HPI - Back (units (unk nown) date) Pain/Injury unknown) (unknown) (no (unknown) (unknown) Hct 29.9 L (units (unk nown) date) (36-46) % unknown) (unknown) (no (unknown) (unknown) Hgb 9.6 L (units (unkn own) date) (12.0-16.0) g/dL unknown) (unknown) (no (unknown) (unknown) Home Medications (units (unknown) date) unknown) (unknown) (no (unknown) (unknown) Initial Vital (units ( unknown) date) Signs unknown) (unknown) (no (unknown) (unknown) Initial Vital (units ( unknown) date) Signs: unknown) (unknown) (no (unknown) (unknown) [facility] (units (unknown) date) [address] unknown) [place] [address] (unknown) (no (unknown) (unknown) Lab Data (units (unkno wn) date) unknown) (unknown) (no (unknown) (unknown) Lab Results (units (un known) date) unknown) (unknown) (no (unknown) (unknown) Labs: (units (unkno wn) date) unknown) (unknown) (no (unknown) (unknown) Lipase 201 (units (unk nown) date) (23-300) U/L unknown) (unknown) (no (unknown) (unknown) Lipase Stat (units (un known) date) unknown) (unknown) (no (unknown) (unknown) Aramis Godfrey, (units (unknown) date) [Primary Care unknown) Provider] (unknown) (no (unknown) (unknown) Lymph # (Auto) (units (unknown) date) 1000 L unknown) ([id number]) /uL (unknown) (no (unknown) (unknown) Lymph % (Auto) (units (unknown) date) 19.0 L (25-40) % unknown) (unknown) (no (unknown) (unknown) MCH 32.9 (26-34) (units (unknown) date) PG unknown) (unknown) (no (unknown) (unknown) MCHC 32.1 (units (unkn own) date) (30-36) % unknown) (unknown) (no (unknown) (unknown) MCV 102.6 H (units (un known) date) (80-100) fL unknown) (unknown) (no (unknown) (unknown) MDM - Back (units (unk nown) date) Pain/Injury unknown) (unknown) (no (unknown) (unknown) Medication (units (unk nown) date) Instructions unknown) Recorded Confirmed (unknown) (no (unknown) (unknown) Medication (units (unk nown) date) Instructions unknown) Recorded (unknown) (no (unknown) (unknown) Stone # (Auto) (units ( unknown) date) 800 (0-900) /uL unknown) (unknown) (no (unknown) (unknown) [place] % (Auto) (units ( unknown) date) 16.0 H (3-14) % unknown) (unknown) (no (unknown) (unknown) Neut # (Auto) (units ( unknown) date) 3300 (9035-7978) unknown) /uL (unknown) (no (unknown) (unknown) Neut % (Auto) (units ( unknown) date) 62.1 (50-75) % unknown) (unknown) (no (unknown) (unknown) No Action (units (unkn own) date) unknown) (unknown) (no (unknown) (unknown) Ordered: (units (unkno wn) date) unknown) (unknown) (no (unknown) (unknown) Orders (units (unkno wn) date) unknown) (unknown) (no (unknown) (unknown) Oxygen Delivery (units (unknown) date) Method 12/13/22 unknown) 10:16 (unknown) (no (unknown) (unknown) Oxygen Delivery (units (unknown) date) Method Room Air unknown) (unknown) (no (unknown) (unknown) Patient History (units (unknown) date) unknown) (unknown) (no (unknown) (unknown) Patient: (units (unkno wn) date) Gómez Walls MR#: unknown) [id number] (unknown) (no (unknown) (unknown) Plt Count 86 L (units (unknown) date) (150-400) X103/uL unknown) (unknown) (no (unknown) (unknown) Potassium 4.1 (units ( unknown) date) (3.4-5.1) mmol/L unknown) (unknown) (no (unknown) (unknown) Prescriptions: (units (unknown) date) unknown) (unknown) (no (unknown) (unknown) Previous Rx's (units ( unknown) date) unknown) (unknown) (no (unknown) (unknown) Pulse Oximetry (units (unknown) date) 96 12/13/22 10:16 unknown) (unknown) (no (unknown) (unknown) Pulse Oximetry (units (unknown) date) 96 unknown) (unknown) (no (unknown) (unknown) Pulse Rate 60 (units ( unknown) date) 12/13/22 10:16 unknown) (unknown) (no (unknown) (unknown) Pulse Rate 60 (units ( unknown) date) unknown) (unknown) (no (unknown) (unknown) RBC 2.92 L (units (unk nown) date) (4.0-5.2) X106/uL unknown) (unknown) (no (unknown) (unknown) RDW 19.9 H (units (unk nown) date) (11.6-14.8) % unknown) (unknown) (no (unknown) (unknown) Referrals: (units (unk nown) date) unknown) (unknown) (no (unknown) (unknown) Related Data (units (u nknown) date) unknown) (unknown) (no (unknown) (unknown) Respiratory Rate (units (unknown) date) 18 12/13/22 10:16 unknown) (unknown) (no (unknown) (unknown) Respiratory Rate (units (unknown) date) 18 unknown) (unknown) (no (unknown) (unknown) Signed By: (units (unk nown) date) unknown) (unknown) (no (unknown) (unknown) Smoking Status: (units (unknown) date) Former smoker unknown) (unknown) (no (unknown) (unknown) Social History (units (unknown) date) (Reviewed unknown) 10/15/22 @ 18:46 by Ciara Pacheco DO) (unknown) (no (unknown) (unknown) Sodium 138 (units (unk nown) date) (137-145) mmol/L unknown) (unknown) (no (unknown) (unknown) Source: patient (units (unknown) date) unknown) (unknown) (no (unknown) (unknown) Stated (units (unkno wn) date) Complaint: unknown) Constipation no BM x7days (unknown) (no (unknown) (unknown) Substance Use (units ( unknown) date) Type: does not unknown) use (unknown) (no (unknown) (unknown) Temperature 97.7 (units (unknown) date) F 12/13/22 10:16 unknown) (unknown) (no (unknown) (unknown) Temperature 97.7 (units (unknown) date) F unknown) (unknown) (no (unknown) (unknown) Time Seen by (units (u nknown) date) Provider: unknown) 12/13/22 12:32 (unknown) (no (unknown) (unknown) Total Bilirubin (units (unknown) date) 0.9 (0.2-1.3) unknown) mg/dL (unknown) (no (unknown) (unknown) Total Protein (units ( unknown) date) 7.7 (6.3-8.2) unknown) g/dL (unknown) (no (unknown) (unknown) Urinalysis and (units (unknown) date) Microscopic Stat unknown) (unknown) (no (unknown) (unknown) Urine Dip (units (unkn own) date) unknown) (unknown) (no (unknown) (unknown) Urine Specific (units (unknown) date) [place] 1.01 unknown) (unknown) (no (unknown) (unknown) Vital Signs - 8 (units (unknown) date) hr unknown) (unknown) (no (unknown) (unknown) Vital Signs (units (un known) date) unknown) (unknown) (no (unknown) (unknown) Vital signs: (units (u nknown) date) unknown) (unknown) (no (unknown) (unknown) WBC 5.3 (units (unkno wn) date) (4.5-11.0) unknown) X103/uL (unknown) (no (unknown) (unknown) XR abdomen 1V (units ( unknown) date) Stat unknown) (unknown) (no (unknown) (unknown) [Embedded Image (units (unknown) date) Not Available] unknown) (unknown) (no (unknown) (unknown) alcohol intake (units (unknown) date) frequency: unknown) holidays/special occasions only (unknown) (no (unknown) (unknown) alcohol intake: (units (unknown) date) current unknown) (unknown) (no (unknown) (unknown) allopurinol 100 (units (unknown) date) mg tablet 100 mg unknown) PO DAILY 10/15/22 10/15/22 (unknown) (no (unknown) (unknown) allopurinol 100 (units (unknown) date) mg tablet unknown) (unknown) (no (unknown) (unknown) anastrozole 1 mg (units (unknown) date) tablet 1 mg PO unknown) DAILY 10/15/22 10/15/22 (unknown) (no (unknown) (unknown) anastrozole 1 mg (units (unknown) date) tablet unknown) (unknown) (no (unknown) (unknown) aspirin 81 mg (units ( unknown) date) Capsule unknown) (unknown) (no (unknown) (unknown) aspirin 81 mg (units ( unknown) date) capsule 81 mg PO unknown) DAILY 10/15/22 10/15/22 (unknown) (no (unknown) (unknown) atorvastatin 40 (units (unknown) date) mg tablet 40 mg unknown) PO BEDTIME 10/15/22 10/15/22 (unknown) (no (unknown) (unknown) atorvastatin 40 (units (unknown) date) mg tablet unknown) (unknown) (no (unknown) (unknown) device (units (unkno wn) date) unknown) (unknown) (no (unknown) (unknown) ferrous sulfate (units (unknown) date) 325 mg (65 mg 325 unknown) mg PO DAILY 10/15/22 10/15/22 (unknown) (no (unknown) (unknown) ferrous sulfate (units (unknown) date) 325 mg (65 mg unknown) iron) Tablet (unknown) (no (unknown) (unknown) fluticasone 500 (units (unknown) date) mcg-salmeterol 50 unknown) 1 inh inhalation BID 10/15/22 10/15/22 (unknown) (no (unknown) (unknown) fluticasone (units (un known) date) propion-salmetero unknown) l [Advair Diskus] 500-50 mcg/dose blister with (unknown) (no (unknown) (unknown) gentamicin (units (unk nown) date) Allergy Verified unknown) 10/15/22 17:02 (unknown) (no (unknown) (unknown) household (units (unkn own) date) members: spouse unknown) (unknown) (no (unknown) (unknown) inhalation (units (unk nown) date) (Advair Diskus) unknown) (unknown) (no (unknown) (unknown) iron) tablet (units (u nknown) date) unknown) (unknown) (no (unknown) (unknown) levothyroxine (units ( unknown) date) 100 mcg tablet unknown) 100 mcg PO DAILY 10/15/22 10/15/22 (unknown) (no (unknown) (unknown) levothyroxine (units ( unknown) date) 100 mcg tablet unknown) (unknown) (no (unknown) (unknown) magnesium (units (unkn own) date) chloride 64 mg 64 unknown) mg PO DAILY 10/15/22 10/15/22 (unknown) (no (unknown) (unknown) magnesium (units (unkn own) date) chloride 64 mg unknown) Tablet Extended Release (unknown) (no (unknown) (unknown) mcg/dose blistr (units (unknown) date) powdr for unknown) (unknown) (no (unknown) (unknown) metoprolol (units (unk nown) date) succinate 100 mg unknown) 100 mg PO DAILY #90 tabs 10/18/22 (unknown) (no (unknown) (unknown) metoprolol (units (unk nown) date) succinate 100 mg unknown) tablet extended release 24 hr (unknown) (no (unknown) (unknown) tablet,extended (units (unknown) date) release 24 hr unknown) (unknown) (no (unknown) (unknown) tablet,extended (units (unknown) date) release unknown) (unknown) (no (unknown) (unknown) torsemide 20 mg (units (unknown) date) tablet 40 mg PO unknown) DAILY 10/15/22 10/15/22 (unknown) (no (unknown) (unknown) torsemide 20 mg (units (unknown) date) tablet unknown) Result panel 176 (unknown) (no date) (unknown) (unknown) 0-1/HPF (units (unkn own) unknown) (unknown) (no date) (unknown) (unknown) 1 (units (unkn own) unknown) (unknown) (no date) (unknown) (unknown) 1-5 /HPF (units (unkn own) unknown) (unknown) (no date) (unknown) (unknown) 1-5/HPF (units (unkn own) unknown) (unknown) (no date) (unknown) (unknown) 1.0 e.u./dl (unkn own) (unknown) (no date) (unknown) (unknown) 1.010 (units (unkn own) unknown) (unknown) (no date) (unknown) (unknown) 7.0 (units (unkn own) unknown) (unknown) (no date) (unknown) (unknown) CLEAR (units (unkn own) unknown) (unknown) (no date) (unknown) (unknown) Few (2-10) (units (un known) unknown) (unknown) (no date) (unknown) (unknown) NEGATIVE (units (unkn own) unknown) (unknown) (no date) (unknown) (unknown) NEGATIVE g/dl (unkn own) (unknown) (no date) (unknown) (unknown) Specimen (units (unkn own) Cultured unknown) (unknown) (no date) (unknown) (unknown) YELLOW (units (unkn own) unknown) (unknown) (no date) (unknown) (unknown) YELLOW (units (unkn own) unknown) Result panel 177 (unknown) (no (unknown) (unknown) (no value) (units (unk nown) date) unknown) (unknown) (no (unknown) (unknown) 12/13/22 (units (unkno wn) date) unknown) (unknown) (no (unknown) (unknown) [address] [place] [address] (units (unknown) date) unknown) (unknown) (no (unknown) (unknown) [address] (units (unkno wn) date) unknown) (unknown) (no (unknown) (unknown) Accession (units (unkn own) date) Number: unknown) [id number] (unknown) (no (unknown) (unknown) Age/Sex: 72 / F (units (unknown) date) Date of Service: unknown) (unknown) (no (unknown) (unknown) [place]units ( unknown[place] date[place] [id number] unknown) (unknown) (no (unknown) (unknown) Approved by: (units (u nknown) date) job Watters) Thomas on 12/13/2022 at 13:39 (unknown) (no (unknown) (unknown) Bones and chest (units (unknown) date) wall: No unknown) suspicious bony lesions. Age-appropriate bony (unknown) (no (unknown) (unknown) COMPARISON: (units (un known) date) [facility], unknown) CR, XR CHEST 2V, 2022, 16:46. [place] (unknown) (no (unknown) (unknown) : 1950 (units (unknown) date) Acct:[id number] unknown) (unknown) (no (unknown) (unknown) Dictated by: (units (u nknown) date) job Watters) Thomas on 12/13/2022 at 13:38 (unknown) (no (unknown) (unknown) FINDINGS: (units (unkn own) date) unknown) (unknown) (no (unknown) (unknown) Generalized (units (un known) date) interstitial unknown) prominence can be seen. No pneumothorax is seen. (unknown) (no (unknown) (unknown) Hospital, CR, (units ( unknown) date) unknown) (unknown) (no (unknown) (unknown) IMPRESSION: (units (un known) date) Cardiomegaly, unknown) pleural effusions, and interstitial prominence. CHF (unknown) (no (unknown) (unknown) INDICATIONS: (units (u nknown) date) short of breath unknown) (unknown) (no (unknown) (unknown) [facility] (units (unknown) date) unknown) (unknown) (no (unknown) (unknown) Loc: ED (units (unkno wn) date) unknown) (unknown) (no (unknown) (unknown) Lungs and (units (unkn own) date) pleura: Bilateral unknown) pleural effusions are seen, right larger than (unknown) (no (unknown) (unknown) Mediastinum: (units (u nknown) date) Mediastinal unknown) contours appear normal. Heart size is prominently (unknown) (no (unknown) (unknown) Ordering (units (unkno wn) date) Provider: unknown) Jennifer Guallpa D.O. 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 (unknown) (no (unknown) (unknown) Procedure: XR (units ( unknown) date) chest 1V unknown) (unknown) (no (unknown) (unknown) Signed (units (unkno wn) date) unknown) (unknown) (no (unknown) (unknown) Surgical changes (units (unknown) date) and devices: unknown) Sternotomy wires and prosthetic valves are seen. (unknown) (no (unknown) (unknown) TECHNIQUE: One (units (unknown) date) view of the chest unknown) was acquired. (unknown) (no (unknown) (unknown) XR CHEST 1V, (units (u nknown) date) 10/16/2022, 6:41. unknown) (unknown) (no (unknown) (unknown) XRay Report (units (un known) date) unknown) (unknown) (no (unknown) (unknown) changes are (units (un known) date) seen. Overlying unknown) soft tissues appear unremarkable. (unknown) (no (unknown) (unknown) degenerative (units (u nknown) date) unknown) (unknown) (no (unknown) (unknown) enlarged. (units (unkn own) date) unknown) (unknown) (no (unknown) (unknown) is (units (unkno wn) date) unknown) (unknown) (no (unknown) (unknown) left. (units (unkno wn) date) unknown) (unknown) (no (unknown) (unknown) suspected. (units (unk nown) date) unknown) Result panel 178 (unknown) (no (unknown) (unknown) (no value) (units (unk nown) date) unknown) (unknown) (no (unknown) (unknown) 12/13/22 (units (unkno wn) date) 12/13/22 12/13/22 unknown) Range/Units (unknown) (no (unknown) (unknown) 12/13/22 11:27 (units (unknown) date) unknown) (unknown) (no (unknown) (unknown) 12/13/22 12:35 (units (unknown) date) unknown) (unknown) (no (unknown) (unknown) 12/13/22 13:15 (units (unknown) date) unknown) (unknown) (no (unknown) (unknown) 12/13/22 14:05 (units (unknown) date) unknown) (unknown) (no (unknown) (unknown) 12/13/22 14:23 (units (unknown) date) unknown) (unknown) (no (unknown) (unknown) 12/13/22 14:24 (units (unknown) date) unknown) (unknown) (no (unknown) (unknown) 12/13/22 (units (unkno wn) date) Range/Units unknown) (unknown) (no (unknown) (unknown) 12/13/22 (units (unkno wn) date) unknown) (unknown) (no (unknown) (unknown) 1 inh INHALATION (units (unknown) date) BID unknown) (unknown) (no (unknown) (unknown) 1 mg PO DAILY (units ( unknown) date) unknown) (unknown) (no (unknown) (unknown) 100 mcg PO DAILY (units (unknown) date) unknown) (unknown) (no (unknown) (unknown) 100 mg PO DAILY (units (unknown) date) Qty: 90 0RF unknown) (unknown) (no (unknown) (unknown) 100 mg PO DAILY (units (unknown) date) unknown) (unknown) (no (unknown) (unknown) 10:16 12/13/22 (units (unknown) date) unknown) (unknown) (no (unknown) (unknown) 12:10 12/13/22 (units (unknown) date) unknown) (unknown) (no (unknown) (unknown) 12:11 12/13/22 (units (unknown) date) unknown) (unknown) (no (unknown) (unknown) 12:11 (units (unkno wn) date) unknown) (unknown) (no (unknown) (unknown) 12:30 12/13/22 (units (unknown) date) unknown) (unknown) (no (unknown) (unknown) 12:35 12:35 (units (un known) date) 12:35 unknown) (unknown) (no (unknown) (unknown) 13:00 (units (unkno wn) date) unknown) (unknown) (no (unknown) (unknown) 13:03 12/13/22 (units (unknown) date) unknown) (unknown) (no (unknown) (unknown) 13:15 (units (unkno wn) date) unknown) (unknown) (no (unknown) (unknown) 13:30 (units (unkno wn) date) unknown) (unknown) (no (unknown) (unknown) 14:00 12/13/22 (units (unknown) date) unknown) (unknown) (no (unknown) (unknown) 14:01 12/13/22 (units (unknown) date) unknown) (unknown) (no (unknown) (unknown) 14:01 (units (unkno wn) date) unknown) (unknown) (no (unknown) (unknown) 3097 (units (unkno wn) date) unknown) (unknown) (no (unknown) (unknown) 325 mg PO DAILY (units (unknown) date) unknown) (unknown) (no (unknown) (unknown) 40 mg PO BEDTIME (units (unknown) date) unknown) (unknown) (no (unknown) (unknown) 40 mg PO DAILY (units (unknown) date) unknown) (unknown) (no (unknown) (unknown) 64 mg PO DAILY (units (unknown) date) unknown) (unknown) (no (unknown) (unknown) 81 mg PO DAILY (units (unknown) date) unknown) (unknown) (no (unknown) (unknown) ALT (<35) IU/L (units (unknown) date) unknown) (unknown) (no (unknown) (unknown) ALT 21 (<35) (units (u nknown) date) IU/L unknown) (unknown) (no (unknown) (unknown) AST (14-36) IU/L (units (unknown) date) unknown) (unknown) (no (unknown) (unknown) AST 42 H (14-36) (units (unknown) date) IU/L unknown) (unknown) (no (unknown) (unknown) Age/Sex: 72 / F (units (unknown) date) unknown) (unknown) (no (unknown) (unknown) Albumin (units (unkno wn) date) (3.5-5.0) g/dL unknown) (unknown) (no (unknown) (unknown) Albumin 3.8 (units (un known) date) (3.5-5.0) g/dL unknown) (unknown) (no (unknown) (unknown) Albumin/Globulin (units (unknown) date) Ratio (1.0-2.8) unknown) (unknown) (no (unknown) (unknown) Albumin/Globulin (units (unknown) date) Ratio 1.0 unknown) (1.0-2.8) (unknown) (no (unknown) (unknown) Alkaline (units (unkno wn) date) Phosphatase unknown) (38-126) U/L (unknown) (no (unknown) (unknown) Alkaline (units (unkno wn) date) Phosphatase 130 H unknown) (38-126) U/L (unknown) (no (unknown) (unknown) Allergies (units (unkn own) date) unknown) (unknown) (no (unknown) (unknown) Allergy/AdvReac (units (unknown) date) Type Severity unknown) Reaction Status Date / Time (unknown) (no (unknown) (unknown) BNP [NT-proBNP (units (unknown) date) (BNP-Adult 18+)] unknown) Stat (unknown) (no (unknown) (unknown) BUN (7-17) mg/dL (units (unknown) date) unknown) (unknown) (no (unknown) (unknown) BUN 37 H (7-17) (units (unknown) date) mg/dL unknown) (unknown) (no (unknown) (unknown) BUN/Creatinine (units (unknown) date) Ratio (6-22) unknown) (unknown) (no (unknown) (unknown) BUN/Creatinine (units (unknown) date) Ratio 15.7 (6-22) unknown) (unknown) (no (unknown) (unknown) Baso # (Auto) (units ( unknown) date) (0-100) /uL unknown) (unknown) (no (unknown) (unknown) Baso # (Auto) 0 (units (unknown) date) (0-100) /uL unknown) (unknown) (no (unknown) (unknown) Baso % (Auto) (units ( unknown) date) (0-2) % unknown) (unknown) (no (unknown) (unknown) Baso % (Auto) (units ( unknown) date) 0.6 (0-2) % unknown) (unknown) (no (unknown) (unknown) Bedside Urine (units ( unknown) date) Bilirubin - unknown) Negative (unknown) (no (unknown) (unknown) Bedside Urine (units ( unknown) date) Glucose Negative unknown) (unknown) (no (unknown) (unknown) Bedside Urine (units ( unknown) date) Ketone - Negative unknown) (unknown) (no (unknown) (unknown) Bedside Urine (units ( unknown) date) Leukocytes +/- 15 unknown) (unknown) (no (unknown) (unknown) Bedside Urine (units ( unknown) date) Nitrite - unknown) Negative (unknown) (no (unknown) (unknown) Bedside Urine (units ( unknown) date) Occult Blood - unknown) Negative (unknown) (no (unknown) (unknown) Bedside Urine (units ( unknown) date) Protein + 30 unknown) (unknown) (no (unknown) (unknown) Bedside Urine (units ( unknown) date) Urobilinogen - unknown) Negative (unknown) (no (unknown) (unknown) Bedside Urine pH (units (unknown) date) 6.5 unknown) (unknown) (no (unknown) (unknown) Blood Pressure (units (unknown) date) 160/73 H unknown) (unknown) (no (unknown) (unknown) Blood Pressure (units (unknown) date) 165/87 H unknown) (unknown) (no (unknown) (unknown) Blood Pressure (units (unknown) date) 191/97 H 12/13/22 unknown) 10:16 (unknown) (no (unknown) (unknown) Blood Pressure (units (unknown) date) 191/97 H 168/71 H unknown) (unknown) (no (unknown) (unknown) Blood Pressure (units (unknown) date) unknown) (unknown) (no (unknown) (unknown) CBC Auto Diff (units ( unknown) date) [Complete Blood unknown) Count AUTO DIFF] Stat (unknown) (no (unknown) (unknown) CMP (units (unkno wn) date) [Comprehensive unknown) Metabolic Panel] Stat (unknown) (no (unknown) (unknown) CT chest abd pel (units (unknown) date) w con Stat unknown) (unknown) (no (unknown) (unknown) Calcium (units (unkno wn) date) (8.4-10.2) mg/dL unknown) (unknown) (no (unknown) (unknown) Calcium 8.5 (units (un known) date) (8.4-10.2) mg/dL unknown) (unknown) (no (unknown) (unknown) Carbon Dioxide (units (unknown) date) (22-32) mmol/L unknown) (unknown) (no (unknown) (unknown) Carbon Dioxide (units (unknown) date) 25 (22-32) mmol/L unknown) (unknown) (no (unknown) (unknown) Chest [XR chest (units (unknown) date) 1V] Stat unknown) (unknown) (no (unknown) (unknown) Chief Complaint: (units (unknown) date) Back Pain/Injury unknown) (unknown) (no (unknown) (unknown) Chloride (units (unkno wn) date) (98-107) mmol/L unknown) (unknown) (no (unknown) (unknown) Chloride 103 (units (u nknown) date) (98-107) mmol/L unknown) (unknown) (no (unknown) (unknown) Course (units (unkno wn) date) unknown) (unknown) (no (unknown) (unknown) Creatinine (units (unk nown) date) (0.52-1.04) mg/dL unknown) (unknown) (no (unknown) (unknown) Creatinine 2.35 (units (unknown) date) H (0.52-1.04) unknown) mg/dL (unknown) (no (unknown) (unknown) : 1950 (units (unknown) date) Acct:[id number] unknown) (unknown) (no (unknown) (unknown) Date of Service: (units (unknown) date) 12/13/22 unknown) (unknown) (no (unknown) (unknown) Departure (units (unkn own) date) unknown) (unknown) (no (unknown) (unknown) Discharge Plan (units (unknown) date) unknown) (unknown) (no (unknown) (unknown) Documented By: (units (unknown) date) KB unknown) (unknown) (no (unknown) (unknown) ED Orders (units (unkn own) date) unknown) (unknown) (no (unknown) (unknown) EKG-12 Lead Stat (units (unknown) date) unknown) (unknown) (no (unknown) (unknown) ER Physician: (units ( unknown) date) Olga Talbert unknown) P.A-C (unknown) (no (unknown) (unknown) Emergency Report (units (unknown) date) unknown) (unknown) (no (unknown) (unknown) Eos # (Auto) (units (u nknown) date) (0-450) /uL unknown) (unknown) (no (unknown) (unknown) Eos # (Auto) 100 (units (unknown) date) (0-450) /uL unknown) (unknown) (no (unknown) (unknown) Eos % (Auto) (units (u nknown) date) (2-4) % unknown) (unknown) (no (unknown) (unknown) Eos % (Auto) 2.3 (units (unknown) date) (2-4) % unknown) (unknown) (no (unknown) (unknown) Esterase (units (unkno wn) date) unknown) (unknown) (no (unknown) (unknown) Estimated GFR (units ( unknown) date) (>60) mL/min unknown) (unknown) (no (unknown) (unknown) Estimated GFR 21 (units (unknown) date) L (>60) mL/min unknown) (unknown) (no (unknown) (unknown) Exam (units (unkno wn) date) unknown) (unknown) (no (unknown) (unknown) General (units (unkno wn) date) unknown) (unknown) (no (unknown) (unknown) Globulin (units (unkno wn) date) (1.7-4.1) g/dL unknown) (unknown) (no (unknown) (unknown) Globulin 3.9 (units (u nknown) date) (1.7-4.1) g/dL unknown) (unknown) (no (unknown) (unknown) Glucose (80-110) (units (unknown) date) mg/dL unknown) (unknown) (no (unknown) (unknown) Glucose 132 H (units ( unknown) date) (80-110) mg/dL unknown) (unknown) (no (unknown) (unknown) HPI - Back (units (unk nown) date) Pain/Injury unknown) (unknown) (no (unknown) (unknown) Hct (36-46) % (units ( unknown) date) unknown) (unknown) (no (unknown) (unknown) Hct 29.9 L (units (unk nown) date) (36-46) % unknown) (unknown) (no (unknown) (unknown) Hgb (12.0-16.0) (units (unknown) date) g/dL unknown) (unknown) (no (unknown) (unknown) Hgb 9.6 L (units (unkn own) date) (12.0-16.0) g/dL unknown) (unknown) (no (unknown) (unknown) Home Medications (units (unknown) date) unknown) (unknown) (no (unknown) (unknown) Initial Vital (units ( unknown) date) Signs unknown) (unknown) (no (unknown) (unknown) Initial Vital (units ( unknown) date) Signs: unknown) (unknown) (no (unknown) (unknown) [facility] (units (unknown) date) [address] unknown) [place] [address] (unknown) (no (unknown) (unknown) Lab Data (units (unkno wn) date) unknown) (unknown) (no (unknown) (unknown) Lab Results (units (un known) date) unknown) (unknown) (no (unknown) (unknown) Labs: (units (unkno wn) date) unknown) (unknown) (no (unknown) (unknown) Last Admin: (units (un known) date) 12/13/22 14:15 unknown) Dose: 1,000 mls/hr (unknown) (no (unknown) (unknown) Lipase (23-300) (units (unknown) date) U/L unknown) (unknown) (no (unknown) (unknown) Lipase 201 (units (unk nown) date) (23-300) U/L unknown) (unknown) (no (unknown) (unknown) Lipase Stat (units (un known) date) unknown) (unknown) (no (unknown) (unknown) Aramis Godfrey, (units (unknown) date) [Primary Care unknown) Provider] (unknown) (no (unknown) (unknown) Lymph # (Auto) (units (unknown) date) (0633-5573) /uL unknown) (unknown) (no (unknown) (unknown) Lymph # (Auto) (units (unknown) date) 1000 L unknown) (8026-4176) /uL (unknown) (no (unknown) (unknown) Lymph % (Auto) (units (unknown) date) (25-40) % unknown) (unknown) (no (unknown) (unknown) Lymph % (Auto) (units (unknown) date) 19.0 L (25-40) % unknown) (unknown) (no (unknown) (unknown) MCH (26-34) PG (units (unknown) date) unknown) (unknown) (no (unknown) (unknown) MCH 32.9 (26-34) (units (unknown) date) PG unknown) (unknown) (no (unknown) (unknown) MCHC (30-36) % (units (unknown) date) unknown) (unknown) (no (unknown) (unknown) MCHC 32.1 (units (unkn own) date) (30-36) % unknown) (unknown) (no (unknown) (unknown) MCV (80-100) fL (units (unknown) date) unknown) (unknown) (no (unknown) (unknown) MCV 102.6 H (units (un known) date) (80-100) fL unknown) (unknown) (no (unknown) (unknown) MDM - Back (units (unk nown) date) Pain/Injury unknown) (unknown) (no (unknown) (unknown) Medication (units (unk nown) date) Instructions unknown) Recorded Confirmed (unknown) (no (unknown) (unknown) Medication (units (unk nown) date) Instructions unknown) Recorded (unknown) (no (unknown) (unknown) [place] # (Auto) (units ( unknown) date) (0-900) /uL unknown) (unknown) (no (unknown) (unknown) Stone # (Auto) (units ( unknown) date) 800 (0-900) /uL unknown) (unknown) (no (unknown) (unknown) Stone % (Auto) (units ( unknown) date) (3-14) % unknown) (unknown) (no (unknown) (unknown) Stone % (Auto) (units ( unknown) date) 16.0 H (3-14) % unknown) (unknown) (no (unknown) (unknown) Neut # (Auto) (units ( unknown) date) (3910-2607) /uL unknown) (unknown) (no (unknown) (unknown) Neut # (Auto) (units ( unknown) date) 3300 (0219-3210) unknown) /uL (unknown) (no (unknown) (unknown) Neut % (Auto) (units ( unknown) date) (50-75) % unknown) (unknown) (no (unknown) (unknown) Neut % (Auto) (units ( unknown) date) 62.1 (50-75) % unknown) (unknown) (no (unknown) (unknown) No Action (units (unkn own) date) unknown) (unknown) (no (unknown) (unknown) Ordered: (units (unkno wn) date) unknown) (unknown) (no (unknown) (unknown) Orders (units (unkno wn) date) unknown) (unknown) (no (unknown) (unknown) Oxygen Delivery (units (unknown) date) Method 12/13/22 unknown) 10:16 (unknown) (no (unknown) (unknown) Oxygen Delivery (units (unknown) date) Method Room Air unknown) (unknown) (no (unknown) (unknown) Oxygen Delivery (units (unknown) date) Method unknown) (unknown) (no (unknown) (unknown) Patient History (units (unknown) date) unknown) (unknown) (no (unknown) (unknown) Patient: (units (unkno wn) date) Gómez Walls MR#: unknown) [id number] (unknown) (no (unknown) (unknown) Plt Count (units (unkn own) date) (150-400) X103/uL unknown) (unknown) (no (unknown) (unknown) Plt Count 86 L (units (unknown) date) (150-400) X103/uL unknown) (unknown) (no (unknown) (unknown) Potassium (units (unkn own) date) (3.4-5.1) mmol/L unknown) (unknown) (no (unknown) (unknown) Potassium 4.1 (units ( unknown) date) (3.4-5.1) mmol/L unknown) (unknown) (no (unknown) (unknown) Prescriptions: (units (unknown) date) unknown) (unknown) (no (unknown) (unknown) Previous Rx's (units ( unknown) date) unknown) (unknown) (no (unknown) (unknown) Pulse Oximetry (units (unknown) date) 94 98 98 unknown) (unknown) (no (unknown) (unknown) Pulse Oximetry (units (unknown) date) 96 12/13/22 10:16 unknown) (unknown) (no (unknown) (unknown) Pulse Oximetry (units (unknown) date) 96 95 unknown) (unknown) (no (unknown) (unknown) Pulse Oximetry (units (unknown) date) 97 96 unknown) (unknown) (no (unknown) (unknown) Pulse Oximetry (units (unknown) date) 98 98 unknown) (unknown) (no (unknown) (unknown) Pulse Rate 60 (units ( unknown) date) 12/13/22 10:16 unknown) (unknown) (no (unknown) (unknown) Pulse Rate 60 59 (units (unknown) date) L unknown) (unknown) (no (unknown) (unknown) Pulse Rate 60 (units ( unknown) date) unknown) (unknown) (no (unknown) (unknown) Pulse Rate 65 65 (units (unknown) date) unknown) (unknown) (no (unknown) (unknown) Pulse Rate 66 63 (units (unknown) date) 61 unknown) (unknown) (no (unknown) (unknown) RBC (4.0-5.2) (units ( unknown) date) X106/uL unknown) (unknown) (no (unknown) (unknown) RBC 2.92 L (units (unk nown) date) (4.0-5.2) X106/uL unknown) (unknown) (no (unknown) (unknown) RDW (11.6-14.8) (units (unknown) date) % unknown) (unknown) (no (unknown) (unknown) RDW 19.9 H (units (unk nown) date) (11.6-14.8) % unknown) (unknown) (no (unknown) (unknown) Referrals: (units (unk nown) date) unknown) (unknown) (no (unknown) (unknown) Related Data (units (u nknown) date) unknown) (unknown) (no (unknown) (unknown) Respiratory Rate (units (unknown) date) 18 12/13/22 10:16 unknown) (unknown) (no (unknown) (unknown) Respiratory Rate (units (unknown) date) 18 unknown) (unknown) (no (unknown) (unknown) Respiratory Rate (units (unknown) date) unknown) (unknown) (no (unknown) (unknown) Signed By: (units (unk nown) date) unknown) (unknown) (no (unknown) (unknown) Smoking Status: (units (unknown) date) Former smoker unknown) (unknown) (no (unknown) (unknown) Social History (units (unknown) date) (Reviewed unknown) 10/15/22 @ 18:46 by Ciara Pacheco DO) (unknown) (no (unknown) (unknown) Sodium (137-145) (units (unknown) date) mmol/L unknown) (unknown) (no (unknown) (unknown) Sodium 138 (units (unk nown) date) (137-145) mmol/L unknown) (unknown) (no (unknown) (unknown) Sodium Chloride (units (unknown) date) (Normal Saline unknown) 0.9%) 500 mls @ 1,000 mls/hr IV BOLUS ONE (unknown) (no (unknown) (unknown) Source: patient (units (unknown) date) unknown) (unknown) (no (unknown) (unknown) Stated (units (unkno wn) date) Complaint: unknown) Constipation no BM x7days (unknown) (no (unknown) (unknown) Stop: 12/13/22 (units (unknown) date) 14:39 unknown) (unknown) (no (unknown) (unknown) Substance Use (units ( unknown) date) Type: does not unknown) use (unknown) (no (unknown) (unknown) Temperature 97.7 (units (unknown) date) F 12/13/22 10:16 unknown) (unknown) (no (unknown) (unknown) Temperature 97.7 (units (unknown) date) F unknown) (unknown) (no (unknown) (unknown) Temperature (units (un known) date) unknown) (unknown) (no (unknown) (unknown) Time Seen by (units (u nknown) date) Provider: unknown) 12/13/22 12:32 (unknown) (no (unknown) (unknown) Total Bilirubin (units (unknown) date) (0.2-1.3) mg/dL unknown) (unknown) (no (unknown) (unknown) Total Bilirubin (units (unknown) date) 0.9 (0.2-1.3) unknown) mg/dL (unknown) (no (unknown) (unknown) Total Protein (units ( unknown) date) (6.3-8.2) g/dL unknown) (unknown) (no (unknown) (unknown) Total Protein (units ( unknown) date) 7.7 (6.3-8.2) unknown) g/dL (unknown) (no (unknown) (unknown) Troponin + CK (units ( unknown) date) Cardiac Panel unknown) Stat (unknown) (no (unknown) (unknown) Ur Culture (units (unk nown) date) Indicated? unknown) Specimen cultured (unknown) (no (unknown) (unknown) Ur Culture (units (unk nown) date) Indicated? unknown) (unknown) (no (unknown) (unknown) Ur Leukocyte (units (u nknown) date) Esterase unknown) (NEGATIVE) (unknown) (no (unknown) (unknown) Ur Leukocyte (units (u nknown) date) Esterase 1+ H unknown) (NEGATIVE) (unknown) (no (unknown) (unknown) Ur Specific (units (un known) date) [place] unknown) (1.000-1.035) (unknown) (no (unknown) (unknown) Ur Specific (units (un known) date) [place] 1.010 unknown) (1.000-1.035) (unknown) (no (unknown) (unknown) Ur Squamous (units (un known) date) Epith Cells unknown) (0-5/HPF) (unknown) (no (unknown) (unknown) Ur Squamous (units (un known) date) Epith Cells 1-5 unknown) /hpf (0-5/HPF) (unknown) (no (unknown) (unknown) Urinalysis and (units (unknown) date) Microscopic Stat unknown) (unknown) (no (unknown) (unknown) Urine Appearance (units (unknown) date) Clear unknown) (unknown) (no (unknown) (unknown) Urine Appearance (units (unknown) date) unknown) (unknown) (no (unknown) (unknown) Urine Bacteria (units (unknown) date) (None) unknown) (unknown) (no (unknown) (unknown) Urine Bacteria (units (unknown) date) Few (2-10) H unknown) (None) (unknown) (no (unknown) (unknown) Urine Bilirubin (units (unknown) date) (NEGATIVE) unknown) (unknown) (no (unknown) (unknown) Urine Bilirubin (units (unknown) date) Negative unknown) (NEGATIVE) (unknown) (no (unknown) (unknown) Urine Color (units (un known) date) Yellow unknown) (unknown) (no (unknown) (unknown) Urine Color (units (un known) date) unknown) (unknown) (no (unknown) (unknown) Urine Culture (units ( unknown) date) Stat unknown) (unknown) (no (unknown) (unknown) Urine Dip (units (unkn own) date) unknown) (unknown) (no (unknown) (unknown) Urine Glucose (units ( unknown) date) (UA) (Negative) unknown) g/dL (unknown) (no (unknown) (unknown) Urine Glucose (units ( unknown) date) (UA) Negative unknown) (Negative) g/dL (unknown) (no (unknown) (unknown) Urine Ketones (units ( unknown) date) (NEGATIVE) unknown) (unknown) (no (unknown) (unknown) Urine Ketones (units ( unknown) date) Negative unknown) (NEGATIVE) (unknown) (no (unknown) (unknown) Urine Nitrate (units ( unknown) date) (Negative) unknown) (unknown) (no (unknown) (unknown) Urine Nitrate (units ( unknown) date) Negative unknown) (Negative) (unknown) (no (unknown) (unknown) Urine Occult (units (u nknown) date) Blood (Negative) unknown) (unknown) (no (unknown) (unknown) Urine Occult (units (u nknown) date) Blood Negative unknown) (Negative) (unknown) (no (unknown) (unknown) Urine Protein (units ( unknown) date) (Negative) unknown) (unknown) (no (unknown) (unknown) Urine Protein 1+ (units (unknown) date) H (Negative) unknown) (unknown) (no (unknown) (unknown) Urine RBC (units (unkn own) date) (0-5/HPF) unknown) (unknown) (no (unknown) (unknown) Urine RBC (units (unkn own) date) 0-1/hpf (0-5/HPF) unknown) (unknown) (no (unknown) (unknown) Urine Specific (units (unknown) date) [place] 1.01 unknown) (unknown) (no (unknown) (unknown) Urine (units (unkno wn) date) Urobilinogen unknown) (0.2) E.U./dL (unknown) (no (unknown) (unknown) Urine (units (unkno wn) date) Urobilinogen 1.0 unknown) (0.2) E.U./dL (unknown) (no (unknown) (unknown) Urine WBC (units (unkn own) date) (0-5/HPF) unknown) (unknown) (no (unknown) (unknown) Urine WBC (units (unkn own) date) 1-5/hpf (0-5/HPF) unknown) (unknown) (no (unknown) (unknown) Urine pH (units (unkno wn) date) (4.5-8.0) unknown) (unknown) (no (unknown) (unknown) Urine pH 7.0 (units (u nknown) date) (4.5-8.0) unknown) (unknown) (no (unknown) (unknown) Vital Signs - 8 (units (unknown) date) hr unknown) (unknown) (no (unknown) (unknown) Vital Signs (units (un known) date) unknown) (unknown) (no (unknown) (unknown) Vital signs: (units (u nknown) date) unknown) (unknown) (no (unknown) (unknown) WBC (4.5-11.0) (units (unknown) date) X103/uL unknown) (unknown) (no (unknown) (unknown) WBC 5.3 (units (unkno wn) date) (4.5-11.0) unknown) X103/uL (unknown) (no (unknown) (unknown) XR abdomen 1V (units ( unknown) date) Stat unknown) (unknown) (no (unknown) (unknown) [Embedded Image (units (unknown) date) Not Available] unknown) (unknown) (no (unknown) (unknown) alcohol intake (units (unknown) date) frequency: unknown) holidays/special occasions only (unknown) (no (unknown) (unknown) alcohol intake: (units (unknown) date) current unknown) (unknown) (no (unknown) (unknown) allopurinol 100 (units (unknown) date) mg tablet 100 mg unknown) PO DAILY 10/15/22 10/15/22 (unknown) (no (unknown) (unknown) allopurinol 100 (units (unknown) date) mg tablet unknown) (unknown) (no (unknown) (unknown) anastrozole 1 mg (units (unknown) date) tablet 1 mg PO unknown) DAILY 10/15/22 10/15/22 (unknown) (no (unknown) (unknown) anastrozole 1 mg (units (unknown) date) tablet unknown) (unknown) (no (unknown) (unknown) aspirin 81 mg (units ( unknown) date) Capsule unknown) (unknown) (no (unknown) (unknown) aspirin 81 mg (units ( unknown) date) capsule 81 mg PO unknown) DAILY 10/15/22 10/15/22 (unknown) (no (unknown) (unknown) atorvastatin 40 (units (unknown) date) mg tablet 40 mg unknown) PO BEDTIME 10/15/22 10/15/22 (unknown) (no (unknown) (unknown) atorvastatin 40 (units (unknown) date) mg tablet unknown) (unknown) (no (unknown) (unknown) device (units (unkno wn) date) unknown) (unknown) (no (unknown) (unknown) ferrous sulfate (units (unknown) date) 325 mg (65 mg 325 unknown) mg PO DAILY 10/15/22 10/15/22 (unknown) (no (unknown) (unknown) ferrous sulfate (units (unknown) date) 325 mg (65 mg unknown) iron) Tablet (unknown) (no (unknown) (unknown) fluticasone 500 (units (unknown) date) mcg-salmeterol 50 unknown) 1 inh inhalation BID 10/15/22 10/15/22 (unknown) (no (unknown) (unknown) fluticasone (units (un known) date) propion-salmetero unknown) l [Advair Diskus] 500-50 mcg/dose blister with (unknown) (no (unknown) (unknown) gentamicin (units (unk nown) date) Allergy Verified unknown) 10/15/22 17:02 (unknown) (no (unknown) (unknown) household (units (unkn own) date) members: spouse unknown) (unknown) (no (unknown) (unknown) inhalation (units (unk nown) date) (Advair Diskus) unknown) (unknown) (no (unknown) (unknown) iron) tablet (units (u nknown) date) unknown) (unknown) (no (unknown) (unknown) levothyroxine (units ( unknown) date) 100 mcg tablet unknown) 100 mcg PO DAILY 10/15/22 10/15/22 (unknown) (no (unknown) (unknown) levothyroxine (units ( unknown) date) 100 mcg tablet unknown) (unknown) (no (unknown) (unknown) magnesium (units (unkn own) date) chloride 64 mg 64 unknown) mg PO DAILY 10/15/22 10/15/22 (unknown) (no (unknown) (unknown) magnesium (units (unkn own) date) chloride 64 mg unknown) Tablet Extended Release (unknown) (no (unknown) (unknown) mcg/dose blistr (units (unknown) date) powdr for unknown) (unknown) (no (unknown) (unknown) metoprolol (units (unk nown) date) succinate 100 mg unknown) 100 mg PO DAILY #90 tabs 10/18/22 (unknown) (no (unknown) (unknown) metoprolol (units (unk nown) date) succinate 100 mg unknown) tablet extended release 24 hr (unknown) (no (unknown) (unknown) tablet,extended (units (unknown) date) release 24 hr unknown) (unknown) (no (unknown) (unknown) tablet,extended (units (unknown) date) release unknown) (unknown) (no (unknown) (unknown) torsemide 20 mg (units (unknown) date) tablet 40 mg PO unknown) DAILY 10/15/22 10/15/22 (unknown) (no (unknown) (unknown) torsemide 20 mg (units (unknown) date) tablet unknown) Result panel 179 (unknown) (no date) (unknown) (unknown) 0 /ul (unkn own) (unknown) (no date) (unknown) (unknown) 0.6 % (unkn own) (unknown) (no date) (unknown) (unknown) 100 /ul (unkn own) (unknown) (no date) (unknown) (unknown) 1000 /ul (unkn own) (unknown) (no date) (unknown) (unknown) 102.6 fl (unkn own) (unknown) (no date) (unknown) (unknown) 16.0 % (unkn own) (unknown) (no date) (unknown) (unknown) 19.0 % (unkn own) (unknown) (no date) (unknown) (unknown) 19.9 % (unkn own) (unknown) (no date) (unknown) (unknown) 2.3 % (unkn own) (unknown) (no date) (unknown) (unknown) 2.92 x10 6/ul (unkn own) (unknown) (no date) (unknown) (unknown) 29.9 % (unkn own) (unknown) (no date) (unknown) (unknown) 32.1 % (unkn own) (unknown) (no date) (unknown) (unknown) 32.9 pg (unkn own) (unknown) (no date) (unknown) (unknown) 3300 /ul (unkn own) (unknown) (no date) (unknown) (unknown) 5.3 x10 3/ul (unkn own) (unknown) (no date) (unknown) (unknown) 62.1 % (unkn own) (unknown) (no date) (unknown) (unknown) 800 /ul (unkn own) (unknown) (no date) (unknown) (unknown) 86 x10 3/ul (unkn own) (unknown) (no date) (unknown) (unknown) 9.6 g/dl (unkn own) Result panel 180 (unknown) (no date) (unknown) (unknown) 0 /ul (unkn own) (unknown) (no date) (unknown) (unknown) 0.6 % (unkn own) (unknown) (no date) (unknown) (unknown) 1 (units unknown) (unknown) (unknown) (no date) (unknown) (unknown) 100 /ul (unkn own) (unknown) (no date) (unknown) (unknown) 1000 /ul (unkn own) (unknown) (no date) (unknown) (unknown) 102.6 fl (unkn own) (unknown) (no date) (unknown) (unknown) 16.0 % (unkn own) (unknown) (no date) (unknown) (unknown) 19.0 % (unkn own) (unknown) (no date) (unknown) (unknown) 19.9 % (unkn own) (unknown) (no date) (unknown) (unknown) 2.3 % (unkn own) (unknown) (no date) (unknown) (unknown) 2.92 x10 6/ul (unkn own) (unknown) (no date) (unknown) (unknown) 29.9 % (unkn own) (unknown) (no date) (unknown) (unknown) 3 (units unknown) (unknown) (unknown) (no date) (unknown) (unknown) 32.1 % (unkn own) (unknown) (no date) (unknown) (unknown) 32.9 pg (unkn own) (unknown) (no date) (unknown) (unknown) 3300 /ul (unkn own) (unknown) (no date) (unknown) (unknown) 5.3 x10 3/ul (unkn own) (unknown) (no date) (unknown) (unknown) 62.1 % (unkn own) (unknown) (no date) (unknown) (unknown) 800 /ul (unkn own) (unknown) (no date) (unknown) (unknown) 86 x10 3/ul (unkn own) (unknown) (no date) (unknown) (unknown) 9.6 g/dl (unkn own) Result panel 181 (unknown) (no date) (unknown) (unknown) 150 u/l (unkn own) Result panel 182 (unknown) (no date) (unknown) (unknown) 0.030 ng/ml (unkn own) (unknown) (no date) (unknown) (unknown) 0.030 ng/ml (unkn own) (unknown) (no date) (unknown) (unknown) 150 u/l (unkn own) (unknown) (no date) (unknown) (unknown) 4890 pg/ml (unkn own) (unknown) (no date) (unknown) (unknown) 4890 pg/ml (unkn own) Result panel 183 (unknown) (no date) (unknown) (unknown) 0.030 ng/ml (unkn own) (unknown) (no date) (unknown) (unknown) 0.030 ng/ml (unkn own) (unknown) (no date) (unknown) (unknown) 0.6 % (unkn own) (unknown) (no date) (unknown) (unknown) 0.85 ng/ml (unkn own) (unknown) (no date) (unknown) (unknown) 150 u/l (unkn own) (unknown) (no date) (unknown) (unknown) 4890 pg/ml (unkn own) (unknown) (no date) (unknown) (unknown) 4890 pg/ml (unkn own) Result panel 184 (unknown) (no (unknown) (unknown) (no value) (units (unk nown) date) unknown) (unknown) (no (unknown) (unknown) 12/13/22 (units (unkno wn) date) 12/13/22 12/13/22 unknown) Range/Units (unknown) (no (unknown) (unknown) 12/13/22 (units (unkno wn) date) 12/13/22 unknown) Range/Units (unknown) (no (unknown) (unknown) 12/13/22 11:27 (units (unknown) date) unknown) (unknown) (no (unknown) (unknown) 12/13/22 12:35 (units (unknown) date) unknown) (unknown) (no (unknown) (unknown) 12/13/22 13:15 (units (unknown) date) unknown) (unknown) (no (unknown) (unknown) 12/13/22 14:05 (units (unknown) date) unknown) (unknown) (no (unknown) (unknown) 12/13/22 14:24 (units (unknown) date) unknown) (unknown) (no (unknown) (unknown) 12/13/22 (units (unkno wn) date) unknown) (unknown) (no (unknown) (unknown) 1 inh INHALATION (units (unknown) date) BID unknown) (unknown) (no (unknown) (unknown) 1 mg PO DAILY (units ( unknown) date) unknown) (unknown) (no (unknown) (unknown) 100 mcg PO DAILY (units (unknown) date) unknown) (unknown) (no (unknown) (unknown) 100 mg PO DAILY (units (unknown) date) Qty: 90 0RF unknown) (unknown) (no (unknown) (unknown) 100 mg PO DAILY (units (unknown) date) unknown) (unknown) (no (unknown) (unknown) 10:16 12/13/22 (units (unknown) date) unknown) (unknown) (no (unknown) (unknown) 12:10 12/13/22 (units (unknown) date) unknown) (unknown) (no (unknown) (unknown) 12:11 12/13/22 (units (unknown) date) unknown) (unknown) (no (unknown) (unknown) 12:11 (units (unkno wn) date) unknown) (unknown) (no (unknown) (unknown) 12:30 12/13/22 (units (unknown) date) unknown) (unknown) (no (unknown) (unknown) 12:35 12:35 (units (un known) date) 12:35 unknown) (unknown) (no (unknown) (unknown) 12:35 13:15 (units (un known) date) unknown) (unknown) (no (unknown) (unknown) 13:00 (units (unkno wn) date) unknown) (unknown) (no (unknown) (unknown) 13:03 12/13/22 (units (unknown) date) unknown) (unknown) (no (unknown) (unknown) 13:30 (units (unkno wn) date) unknown) (unknown) (no (unknown) (unknown) 14:00 12/13/22 (units (unknown) date) unknown) (unknown) (no (unknown) (unknown) 14:01 12/13/22 (units (unknown) date) unknown) (unknown) (no (unknown) (unknown) 14:01 (units (unkno wn) date) unknown) (unknown) (no (unknown) (unknown) 3097 (units (unkno wn) date) unknown) (unknown) (no (unknown) (unknown) 325 mg PO DAILY (units (unknown) date) unknown) (unknown) (no (unknown) (unknown) 40 mg PO BEDTIME (units (unknown) date) unknown) (unknown) (no (unknown) (unknown) 40 mg PO DAILY (units (unknown) date) unknown) (unknown) (no (unknown) (unknown) 64 mg PO DAILY (units (unknown) date) unknown) (unknown) (no (unknown) (unknown) 81 mg PO DAILY (units (unknown) date) unknown) (unknown) (no (unknown) (unknown) ALT (<35) IU/L (units (unknown) date) unknown) (unknown) (no (unknown) (unknown) ALT 21 (<35) (units (u nknown) date) IU/L unknown) (unknown) (no (unknown) (unknown) AST (14-36) IU/L (units (unknown) date) unknown) (unknown) (no (unknown) (unknown) AST 42 H (14-36) (units (unknown) date) IU/L unknown) (unknown) (no (unknown) (unknown) Age/Sex: 72 / F (units (unknown) date) unknown) (unknown) (no (unknown) (unknown) Albumin (units (unkno wn) date) (3.5-5.0) g/dL unknown) (unknown) (no (unknown) (unknown) Albumin 3.8 (units (un known) date) (3.5-5.0) g/dL unknown) (unknown) (no (unknown) (unknown) Albumin/Globulin (units (unknown) date) Ratio (1.0-2.8) unknown) (unknown) (no (unknown) (unknown) Albumin/Globulin (units (unknown) date) Ratio 1.0 unknown) (1.0-2.8) (unknown) (no (unknown) (unknown) Alkaline (units (unkno wn) date) Phosphatase unknown) (38-126) U/L (unknown) (no (unknown) (unknown) Alkaline (units (unkno wn) date) Phosphatase 130 H unknown) (38-126) U/L (unknown) (no (unknown) (unknown) Allergies (units (unkn own) date) unknown) (unknown) (no (unknown) (unknown) Allergy/AdvReac (units (unknown) date) Type Severity unknown) Reaction Status Date / Time (unknown) (no (unknown) (unknown) Anisocytosis 3+ (units (unknown) date) H unknown) (unknown) (no (unknown) (unknown) Anisocytosis (units (u nknown) date) unknown) (unknown) (no (unknown) (unknown) BNP [NT-proBNP (units (unknown) date) (BNP-Adult 18+)] unknown) Stat (unknown) (no (unknown) (unknown) BUN (7-17) mg/dL (units (unknown) date) unknown) (unknown) (no (unknown) (unknown) BUN 37 H (7-17) (units (unknown) date) mg/dL unknown) (unknown) (no (unknown) (unknown) BUN/Creatinine (units (unknown) date) Ratio (6-22) unknown) (unknown) (no (unknown) (unknown) BUN/Creatinine (units (unknown) date) Ratio 15.7 (6-22) unknown) (unknown) (no (unknown) (unknown) Baso # (Auto) (units ( unknown) date) (0-100) /uL unknown) (unknown) (no (unknown) (unknown) Baso # (Auto) 0 (units (unknown) date) (0-100) /uL unknown) (unknown) (no (unknown) (unknown) Baso % (Auto) (units ( unknown) date) (0-2) % unknown) (unknown) (no (unknown) (unknown) Baso % (Auto) (units ( unknown) date) 0.6 (0-2) % unknown) (unknown) (no (unknown) (unknown) Bedside Urine (units ( unknown) date) Bilirubin - unknown) Negative (unknown) (no (unknown) (unknown) Bedside Urine (units ( unknown) date) Glucose Negative unknown) (unknown) (no (unknown) (unknown) Bedside Urine (units ( unknown) date) Ketone - Negative unknown) (unknown) (no (unknown) (unknown) Bedside Urine (units ( unknown) date) Leukocytes +/- 15 unknown) (unknown) (no (unknown) (unknown) Bedside Urine (units ( unknown) date) Nitrite - unknown) Negative (unknown) (no (unknown) (unknown) Bedside Urine (units ( unknown) date) Occult Blood - unknown) Negative (unknown) (no (unknown) (unknown) Bedside Urine (units ( unknown) date) Protein + 30 unknown) (unknown) (no (unknown) (unknown) Bedside Urine (units ( unknown) date) Urobilinogen - unknown) Negative (unknown) (no (unknown) (unknown) Bedside Urine pH (units (unknown) date) 6.5 unknown) (unknown) (no (unknown) (unknown) Blood Pressure (units (unknown) date) 160/73 H unknown) (unknown) (no (unknown) (unknown) Blood Pressure (units (unknown) date) 165/87 H unknown) (unknown) (no (unknown) (unknown) Blood Pressure (units (unknown) date) 191/97 H 12/13/22 unknown) 10:16 (unknown) (no (unknown) (unknown) Blood Pressure (units (unknown) date) 191/97 H 168/71 H unknown) (unknown) (no (unknown) (unknown) Blood Pressure (units (unknown) date) unknown) (unknown) (no (unknown) (unknown) CBC Auto Diff (units ( unknown) date) [Complete Blood unknown) Count AUTO DIFF] Stat (unknown) (no (unknown) (unknown) CK-MB (CK-2) (units (u nknown) date) (<2.37) ng/mL unknown) (unknown) (no (unknown) (unknown) CK-MB (CK-2) (units (u nknown) date) 0.85 (<2.37) unknown) ng/mL (unknown) (no (unknown) (unknown) CK-MB (CK-2) Rel (units (unknown) date) Index (1.5-5.0) % unknown) (unknown) (no (unknown) (unknown) CK-MB (CK-2) Rel (units (unknown) date) Index 0.6 L unknown) (1.5-5.0) % (unknown) (no (unknown) (unknown) CMP (units (unkno wn) date) [Comprehensive unknown) Metabolic Panel] Stat (unknown) (no (unknown) (unknown) CT chest abd pel (units (unknown) date) w con Stat unknown) (unknown) (no (unknown) (unknown) Calcium (units (unkno wn) date) (8.4-10.2) mg/dL unknown) (unknown) (no (unknown) (unknown) Calcium 8.5 (units (un known) date) (8.4-10.2) mg/dL unknown) (unknown) (no (unknown) (unknown) Carbon Dioxide (units (unknown) date) (22-32) mmol/L unknown) (unknown) (no (unknown) (unknown) Carbon Dioxide (units (unknown) date) 25 (22-32) mmol/L unknown) (unknown) (no (unknown) (unknown) Chest [XR chest (units (unknown) date) 1V] Stat unknown) (unknown) (no (unknown) (unknown) Chief Complaint: (units (unknown) date) Back Pain/Injury unknown) (unknown) (no (unknown) (unknown) Chloride (units (unkno wn) date) (98-107) mmol/L unknown) (unknown) (no (unknown) (unknown) Chloride 103 (units (u nknown) date) (98-107) mmol/L unknown) (unknown) (no (unknown) (unknown) Course (units (unkno wn) date) unknown) (unknown) (no (unknown) (unknown) Creatinine (units (unk nown) date) (0.52-1.04) mg/dL unknown) (unknown) (no (unknown) (unknown) Creatinine 2.35 (units (unknown) date) H (0.52-1.04) unknown) mg/dL (unknown) (no (unknown) (unknown) : 1950 (units (unknown) date) Acct:[id number] unknown) (unknown) (no (unknown) (unknown) Date of Service: (units (unknown) date) 12/13/22 unknown) (unknown) (no (unknown) (unknown) Departure (units (unkn own) date) unknown) (unknown) (no (unknown) (unknown) Discharge Plan (units (unknown) date) unknown) (unknown) (no (unknown) (unknown) Discontinued (units (u nknown) date) Medications unknown) (unknown) (no (unknown) (unknown) Documented By: (units (unknown) date) KB unknown) (unknown) (no (unknown) (unknown) ED Orders (units (unkn own) date) unknown) (unknown) (no (unknown) (unknown) EKG-12 Lead Stat (units (unknown) date) unknown) (unknown) (no (unknown) (unknown) ER Physician: (units ( unknown) date) Olga Talbert unknown) P.A-C (unknown) (no (unknown) (unknown) Emergency Report (units (unknown) date) unknown) (unknown) (no (unknown) (unknown) Eos # (Auto) (units (u nknown) date) (0-450) /uL unknown) (unknown) (no (unknown) (unknown) Eos # (Auto) 100 (units (unknown) date) (0-450) /uL unknown) (unknown) (no (unknown) (unknown) Eos % (Auto) (units (u nknown) date) (2-4) % unknown) (unknown) (no (unknown) (unknown) Eos % (Auto) 2.3 (units (unknown) date) (2-4) % unknown) (unknown) (no (unknown) (unknown) Esterase (units (unkno wn) date) unknown) (unknown) (no (unknown) (unknown) Estimated GFR (units ( unknown) date) (>60) mL/min unknown) (unknown) (no (unknown) (unknown) Estimated GFR 21 (units (unknown) date) L (>60) mL/min unknown) (unknown) (no (unknown) (unknown) Exam (units (unkno wn) date) unknown) (unknown) (no (unknown) (unknown) General (units (unkno wn) date) unknown) (unknown) (no (unknown) (unknown) Globulin (units (unkno wn) date) (1.7-4.1) g/dL unknown) (unknown) (no (unknown) (unknown) Globulin 3.9 (units (u nknown) date) (1.7-4.1) g/dL unknown) (unknown) (no (unknown) (unknown) Glucose (80-110) (units (unknown) date) mg/dL unknown) (unknown) (no (unknown) (unknown) Glucose 132 H (units ( unknown) date) (80-110) mg/dL unknown) (unknown) (no (unknown) (unknown) HPI - Back (units (unk nown) date) Pain/Injury unknown) (unknown) (no (unknown) (unknown) Hct (36-46) % (units ( unknown) date) unknown) (unknown) (no (unknown) (unknown) Hct 29.9 L (units (unk nown) date) (36-46) % unknown) (unknown) (no (unknown) (unknown) Hgb (12.0-16.0) (units (unknown) date) g/dL unknown) (unknown) (no (unknown) (unknown) Hgb 9.6 L (units (unkn own) date) (12.0-16.0) g/dL unknown) (unknown) (no (unknown) (unknown) Home Medications (units (unknown) date) unknown) (unknown) (no (unknown) (unknown) Initial Vital (units ( unknown) date) Signs unknown) (unknown) (no (unknown) (unknown) Initial Vital (units ( unknown) date) Signs: unknown) (unknown) (no (unknown) (unknown) [facility] (units (unknown) date) [address] unknown) [place] [address] (unknown) (no (unknown) (unknown) Lab Data (units (unkno wn) date) unknown) (unknown) (no (unknown) (unknown) Lab Results (units (un known) date) unknown) (unknown) (no (unknown) (unknown) Labs: (units (unkno wn) date) unknown) (unknown) (no (unknown) (unknown) Last Admin: (units (un known) date) 12/13/22 14:15 unknown) Dose: 1,000 mls/hr (unknown) (no (unknown) (unknown) Lipase (23-300) (units (unknown) date) U/L unknown) (unknown) (no (unknown) (unknown) Lipase 201 (units (unk nown) date) (23-300) U/L unknown) (unknown) (no (unknown) (unknown) Lipase Stat (units (un known) date) unknown) (unknown) (no (unknown) (unknown) Aramis Godfrey, (units (unknown) date) [Primary Care unknown) Provider] (unknown) (no (unknown) (unknown) Lymph # (Auto) (units (unknown) date) (0452-1817) /uL unknown) (unknown) (no (unknown) (unknown) Lymph # (Auto) (units (unknown) date) 1000 L unknown) (8453-4369) /uL (unknown) (no (unknown) (unknown) Lymph % (Auto) (units (unknown) date) (25-40) % unknown) (unknown) (no (unknown) (unknown) Lymph % (Auto) (units (unknown) date) 19.0 L (25-40) % unknown) (unknown) (no (unknown) (unknown) MCH (26-34) PG (units (unknown) date) unknown) (unknown) (no (unknown) (unknown) MCH 32.9 (26-34) (units (unknown) date) PG unknown) (unknown) (no (unknown) (unknown) MCHC (30-36) % (units (unknown) date) unknown) (unknown) (no (unknown) (unknown) MCHC 32.1 (units (unkn own) date) (30-36) % unknown) (unknown) (no (unknown) (unknown) MCV (80-100) fL (units (unknown) date) unknown) (unknown) (no (unknown) (unknown) MCV 102.6 H (units (un known) date) (80-100) fL unknown) (unknown) (no (unknown) (unknown) MDM - Back (units (unk nown) date) Pain/Injury unknown) (unknown) (no (unknown) (unknown) Macrocytosis 1+ (units (unknown) date) H unknown) (unknown) (no (unknown) (unknown) Macrocytosis (units (u nknown) date) unknown) (unknown) (no (unknown) (unknown) Medication (units (unk nown) date) Instructions unknown) Recorded Confirmed (unknown) (no (unknown) (unknown) Medication (units (unk nown) date) Instructions unknown) Recorded (unknown) (no (unknown) (unknown) Stone # (Auto) (units ( unknown) date) (0-900) /uL unknown) (unknown) (no (unknown) (unknown) Stone # (Auto) (units ( unknown) date) 800 (0-900) /uL unknown) (unknown) (no (unknown) (unknown) Stone % (Auto) (units ( unknown) date) (3-14) % unknown) (unknown) (no (unknown) (unknown) Stone % (Auto) (units ( unknown) date) 16.0 H (3-14) % unknown) (unknown) (no (unknown) (unknown) NT-Pro-B (units (unkno wn) date) Natriuret Pep unknown) (<125) pg/mL (unknown) (no (unknown) (unknown) NT-Pro-B (units (unkno wn) date) Natriuret Pep unknown) 4890 H (<125) pg/mL (unknown) (no (unknown) (unknown) Neut # (Auto) (units ( unknown) date) (9892-4327) /uL unknown) (unknown) (no (unknown) (unknown) Neut # (Auto) (units ( unknown) date) 3300 (4865-7465) unknown) /uL (unknown) (no (unknown) (unknown) Neut % (Auto) (units ( unknown) date) (50-75) % unknown) (unknown) (no (unknown) (unknown) Neut % (Auto) (units ( unknown) date) 62.1 (50-75) % unknown) (unknown) (no (unknown) (unknown) No Action (units (unkn own) date) unknown) (unknown) (no (unknown) (unknown) Ordered: (units (unkno wn) date) unknown) (unknown) (no (unknown) (unknown) Orders (units (unkno wn) date) unknown) (unknown) (no (unknown) (unknown) Oxygen Delivery (units (unknown) date) Method 12/13/22 unknown) 10:16 (unknown) (no (unknown) (unknown) Oxygen Delivery (units (unknown) date) Method Room Air unknown) (unknown) (no (unknown) (unknown) Oxygen Delivery (units (unknown) date) Method unknown) (unknown) (no (unknown) (unknown) Patient History (units (unknown) date) unknown) (unknown) (no (unknown) (unknown) Patient: (units (unkno wn) date) Gómez Walls MR#: unknown) [id number] (unknown) (no (unknown) (unknown) Plt Count (units (unkn own) date) (150-400) X103/uL unknown) (unknown) (no (unknown) (unknown) Plt Count 86 L (units (unknown) date) (150-400) X103/uL unknown) (unknown) (no (unknown) (unknown) Potassium (units (unkn own) date) (3.4-5.1) mmol/L unknown) (unknown) (no (unknown) (unknown) Potassium 4.1 (units ( unknown) date) (3.4-5.1) mmol/L unknown) (unknown) (no (unknown) (unknown) Prescriptions: (units (unknown) date) unknown) (unknown) (no (unknown) (unknown) Previous Rx's (units ( unknown) date) unknown) (unknown) (no (unknown) (unknown) Pulse Oximetry (units (unknown) date) 94 98 98 unknown) (unknown) (no (unknown) (unknown) Pulse Oximetry (units (unknown) date) 96 12/13/22 10:16 unknown) (unknown) (no (unknown) (unknown) Pulse Oximetry (units (unknown) date) 96 95 unknown) (unknown) (no (unknown) (unknown) Pulse Oximetry (units (unknown) date) 97 96 unknown) (unknown) (no (unknown) (unknown) Pulse Oximetry (units (unknown) date) 98 98 unknown) (unknown) (no (unknown) (unknown) Pulse Rate 60 (units ( unknown) date) 12/13/22 10:16 unknown) (unknown) (no (unknown) (unknown) Pulse Rate 60 59 (units (unknown) date) L unknown) (unknown) (no (unknown) (unknown) Pulse Rate 60 (units ( unknown) date) unknown) (unknown) (no (unknown) (unknown) Pulse Rate 65 65 (units (unknown) date) unknown) (unknown) (no (unknown) (unknown) Pulse Rate 66 63 (units (unknown) date) 61 unknown) (unknown) (no (unknown) (unknown) RBC (4.0-5.2) (units ( unknown) date) X106/uL unknown) (unknown) (no (unknown) (unknown) RBC 2.92 L (units (unk nown) date) (4.0-5.2) X106/uL unknown) (unknown) (no (unknown) (unknown) RBC Morphology (units (unknown) date) Not Reportable unknown) (unknown) (no (unknown) (unknown) RBC Morphology (units (unknown) date) unknown) (unknown) (no (unknown) (unknown) RDW (11.6-14.8) (units (unknown) date) % unknown) (unknown) (no (unknown) (unknown) RDW 19.9 H (units (unk nown) date) (11.6-14.8) % unknown) (unknown) (no (unknown) (unknown) Referrals: (units (unk nown) date) unknown) (unknown) (no (unknown) (unknown) Related Data (units (u nknown) date) unknown) (unknown) (no (unknown) (unknown) Respiratory Rate (units (unknown) date) 18 12/13/22 10:16 unknown) (unknown) (no (unknown) (unknown) Respiratory Rate (units (unknown) date) 18 unknown) (unknown) (no (unknown) (unknown) Respiratory Rate (units (unknown) date) unknown) (unknown) (no (unknown) (unknown) Signed By: (units (unk nown) date) unknown) (unknown) (no (unknown) (unknown) Smoking Status: (units (unknown) date) Former smoker unknown) (unknown) (no (unknown) (unknown) Social History (units (unknown) date) (Reviewed unknown) 10/15/22 @ 18:46 by Ciara Pacheco DO) (unknown) (no (unknown) (unknown) Sodium (137-145) (units (unknown) date) mmol/L unknown) (unknown) (no (unknown) (unknown) Sodium 138 (units (unk nown) date) (137-145) mmol/L unknown) (unknown) (no (unknown) (unknown) Sodium Chloride (units (unknown) date) (Normal Saline unknown) 0.9%) 500 mls @ 1,000 mls/hr IV BOLUS ONE (unknown) (no (unknown) (unknown) Source: patient (units (unknown) date) unknown) (unknown) (no (unknown) (unknown) Stated (units (unkno wn) date) Complaint: unknown) Constipation no BM x7days (unknown) (no (unknown) (unknown) Stop: 12/13/22 (units (unknown) date) 14:39 unknown) (unknown) (no (unknown) (unknown) Substance Use (units ( unknown) date) Type: does not unknown) use (unknown) (no (unknown) (unknown) Temperature 97.7 (units (unknown) date) F 12/13/22 10:16 unknown) (unknown) (no (unknown) (unknown) Temperature 97.7 (units (unknown) date) F unknown) (unknown) (no (unknown) (unknown) Temperature (units (un known) date) unknown) (unknown) (no (unknown) (unknown) Time Seen by (units (u nknown) date) Provider: unknown) 12/13/22 12:32 (unknown) (no (unknown) (unknown) Total Bilirubin (units (unknown) date) (0.2-1.3) mg/dL unknown) (unknown) (no (unknown) (unknown) Total Bilirubin (units (unknown) date) 0.9 (0.2-1.3) unknown) mg/dL (unknown) (no (unknown) (unknown) Total Creatine (units (unknown) date) Kinase (30-135) unknown) U/L (unknown) (no (unknown) (unknown) Total Creatine (units (unknown) date) Kinase 150 H unknown) (30-135) U/L (unknown) (no (unknown) (unknown) Total Protein (units ( unknown) date) (6.3-8.2) g/dL unknown) (unknown) (no (unknown) (unknown) Total Protein (units ( unknown) date) 7.7 (6.3-8.2) unknown) g/dL (unknown) (no (unknown) (unknown) Troponin + CK (units ( unknown) date) Cardiac Panel unknown) Stat (unknown) (no (unknown) (unknown) Troponin I (units (unk nown) date) (0.01-0.034) unknown) ng/mL (unknown) (no (unknown) (unknown) Troponin I 0.030 (units (unknown) date) (0.01-0.034) unknown) ng/mL (unknown) (no (unknown) (unknown) Ur Culture (units (unk nown) date) Indicated? unknown) Specimen cultured (unknown) (no (unknown) (unknown) Ur Culture (units (unk nown) date) Indicated? unknown) (unknown) (no (unknown) (unknown) Ur Leukocyte (units (u nknown) date) Esterase unknown) (NEGATIVE) (unknown) (no (unknown) (unknown) Ur Leukocyte (units (u nknown) date) Esterase 1+ H unknown) (NEGATIVE) (unknown) (no (unknown) (unknown) Ur Specific (units (un known) date) [place] unknown) (1.000-1.035) (unknown) (no (unknown) (unknown) Ur Specific (units (un known) date) [place] 1.010 unknown) (1.000-1.035) (unknown) (no (unknown) (unknown) Ur Squamous (units (un known) date) Epith Cells unknown) (0-5/HPF) (unknown) (no (unknown) (unknown) Ur Squamous (units (un known) date) Epith Cells 1-5 unknown) /hpf (0-5/HPF) (unknown) (no (unknown) (unknown) Urinalysis and (units (unknown) date) Microscopic Stat unknown) (unknown) (no (unknown) (unknown) Urine Appearance (units (unknown) date) Clear unknown) (unknown) (no (unknown) (unknown) Urine Appearance (units (unknown) date) unknown) (unknown) (no (unknown) (unknown) Urine Bacteria (units (unknown) date) (None) unknown) (unknown) (no (unknown) (unknown) Urine Bacteria (units (unknown) date) Few (2-10) H unknown) (None) (unknown) (no (unknown) (unknown) Urine Bilirubin (units (unknown) date) (NEGATIVE) unknown) (unknown) (no (unknown) (unknown) Urine Bilirubin (units (unknown) date) Negative unknown) (NEGATIVE) (unknown) (no (unknown) (unknown) Urine Color (units (un known) date) Yellow unknown) (unknown) (no (unknown) (unknown) Urine Color (units (un known) date) unknown) (unknown) (no (unknown) (unknown) Urine Culture (units ( unknown) date) Stat unknown) (unknown) (no (unknown) (unknown) Urine Dip (units (unkn own) date) unknown) (unknown) (no (unknown) (unknown) Urine Glucose (units ( unknown) date) (UA) (Negative) unknown) g/dL (unknown) (no (unknown) (unknown) Urine Glucose (units ( unknown) date) (UA) Negative unknown) (Negative) g/dL (unknown) (no (unknown) (unknown) Urine Ketones (units ( unknown) date) (NEGATIVE) unknown) (unknown) (no (unknown) (unknown) Urine Ketones (units ( unknown) date) Negative unknown) (NEGATIVE) (unknown) (no (unknown) (unknown) Urine Nitrate (units ( unknown) date) (Negative) unknown) (unknown) (no (unknown) (unknown) Urine Nitrate (units ( unknown) date) Negative unknown) (Negative) (unknown) (no (unknown) (unknown) Urine Occult (units (u nknown) date) Blood (Negative) unknown) (unknown) (no (unknown) (unknown) Urine Occult (units (u nknown) date) Blood Negative unknown) (Negative) (unknown) (no (unknown) (unknown) Urine Protein (units ( unknown) date) (Negative) unknown) (unknown) (no (unknown) (unknown) Urine Protein 1+ (units (unknown) date) H (Negative) unknown) (unknown) (no (unknown) (unknown) Urine RBC (units (unkn own) date) (0-5/HPF) unknown) (unknown) (no (unknown) (unknown) Urine RBC (units (unkn own) date) 0-1/hpf (0-5/HPF) unknown) (unknown) (no (unknown) (unknown) Urine Specific (units (unknown) date) [place] 1.01 unknown) (unknown) (no (unknown) (unknown) Urine (units (unkno wn) date) Urobilinogen unknown) (0.2) E.U./dL (unknown) (no (unknown) (unknown) Urine (units (unkno wn) date) Urobilinogen 1.0 unknown) (0.2) E.U./dL (unknown) (no (unknown) (unknown) Urine WBC (units (unkn own) date) (0-5/HPF) unknown) (unknown) (no (unknown) (unknown) Urine WBC (units (unkn own) date) 1-5/hpf (0-5/HPF) unknown) (unknown) (no (unknown) (unknown) Urine pH (units (unkno wn) date) (4.5-8.0) unknown) (unknown) (no (unknown) (unknown) Urine pH 7.0 (units (u nknown) date) (4.5-8.0) unknown) (unknown) (no (unknown) (unknown) Vital Signs - 8 (units (unknown) date) hr unknown) (unknown) (no (unknown) (unknown) Vital Signs (units (un known) date) unknown) (unknown) (no (unknown) (unknown) Vital signs: (units (u nknown) date) unknown) (unknown) (no (unknown) (unknown) WBC (4.5-11.0) (units (unknown) date) X103/uL unknown) (unknown) (no (unknown) (unknown) WBC 5.3 (units (unkno wn) date) (4.5-11.0) unknown) X103/uL (unknown) (no (unknown) (unknown) XR abdomen 1V (units ( unknown) date) Stat unknown) (unknown) (no (unknown) (unknown) [Embedded Image (units (unknown) date) Not Available] unknown) (unknown) (no (unknown) (unknown) alcohol intake (units (unknown) date) frequency: unknown) holidays/special occasions only (unknown) (no (unknown) (unknown) alcohol intake: (units (unknown) date) current unknown) (unknown) (no (unknown) (unknown) allopurinol 100 (units (unknown) date) mg tablet 100 mg unknown) PO DAILY 10/15/22 10/15/22 (unknown) (no (unknown) (unknown) allopurinol 100 (units (unknown) date) mg tablet unknown) (unknown) (no (unknown) (unknown) anastrozole 1 mg (units (unknown) date) tablet 1 mg PO unknown) DAILY 10/15/22 10/15/22 (unknown) (no (unknown) (unknown) anastrozole 1 mg (units (unknown) date) tablet unknown) (unknown) (no (unknown) (unknown) aspirin 81 mg (units ( unknown) date) Capsule unknown) (unknown) (no (unknown) (unknown) aspirin 81 mg (units ( unknown) date) capsule 81 mg PO unknown) DAILY 10/15/22 10/15/22 (unknown) (no (unknown) (unknown) atorvastatin 40 (units (unknown) date) mg tablet 40 mg unknown) PO BEDTIME 10/15/22 10/15/22 (unknown) (no (unknown) (unknown) atorvastatin 40 (units (unknown) date) mg tablet unknown) (unknown) (no (unknown) (unknown) device (units (unkno wn) date) unknown) (unknown) (no (unknown) (unknown) ferrous sulfate (units (unknown) date) 325 mg (65 mg 325 unknown) mg PO DAILY 10/15/22 10/15/22 (unknown) (no (unknown) (unknown) ferrous sulfate (units (unknown) date) 325 mg (65 mg unknown) iron) Tablet (unknown) (no (unknown) (unknown) fluticasone 500 (units (unknown) date) mcg-salmeterol 50 unknown) 1 inh inhalation BID 10/15/22 10/15/22 (unknown) (no (unknown) (unknown) fluticasone (units (un known) date) propion-salmetero unknown) l [Advair Diskus] 500-50 mcg/dose blister with (unknown) (no (unknown) (unknown) gentamicin (units (unk nown) date) Allergy Verified unknown) 10/15/22 17:02 (unknown) (no (unknown) (unknown) household (units (unkn own) date) members: spouse unknown) (unknown) (no (unknown) (unknown) inhalation (units (unk nown) date) (Advair Diskus) unknown) (unknown) (no (unknown) (unknown) iron) tablet (units (u nknown) date) unknown) (unknown) (no (unknown) (unknown) levothyroxine (units ( unknown) date) 100 mcg tablet unknown) 100 mcg PO DAILY 10/15/22 10/15/22 (unknown) (no (unknown) (unknown) levothyroxine (units ( unknown) date) 100 mcg tablet unknown) (unknown) (no (unknown) (unknown) magnesium (units (unkn own) date) chloride 64 mg 64 unknown) mg PO DAILY 10/15/22 10/15/22 (unknown) (no (unknown) (unknown) magnesium (units (unkn own) date) chloride 64 mg unknown) Tablet Extended Release (unknown) (no (unknown) (unknown) mcg/dose blistr (units (unknown) date) powdr for unknown) (unknown) (no (unknown) (unknown) metoprolol (units (unk nown) date) succinate 100 mg unknown) 100 mg PO DAILY #90 tabs 10/18/22 (unknown) (no (unknown) (unknown) metoprolol (units (unk nown) date) succinate 100 mg unknown) tablet extended release 24 hr (unknown) (no (unknown) (unknown) tablet,extended (units (unknown) date) release 24 hr unknown) (unknown) (no (unknown) (unknown) tablet,extended (units (unknown) date) release unknown) (unknown) (no (unknown) (unknown) torsemide 20 mg (units (unknown) date) tablet 40 mg PO unknown) DAILY 10/15/22 10/15/22 (unknown) (no (unknown) (unknown) torsemide 20 mg (units (unknown) date) tablet unknown) Result panel 185 (unknown) (no (unknown) (unknown) (no value) (units (unk nown) date) unknown) (unknown) (no (unknown) (unknown) 12/13/22 (units (unkno wn) date) unknown) (unknown) (no (unknown) (unknown) 12/13/2022, 14:22. (units (unknown) date) unknown) (unknown) (no (unknown) (unknown) [address] [place] [address] (units (unknown) date) unknown) (unknown) (no (unknown) (unknown) 16:35. (units (unkno wn) date) unknown) (unknown) (no (unknown) (unknown) [id number] (units (unkno wn) date) unknown) (unknown) (no (unknown) (unknown) ABDOMEN: (units (unkno wn) date) unknown) (unknown) (no (unknown) (unknown) Abdominal Nodes: (units (unknown) date) No enlarged unknown) retroperitoneal or mesenteric lymph nodes. (unknown) (no (unknown) (unknown) Accession Number: (units (unknown) date) [id number] unknown) (unknown) (no (unknown) (unknown) Additional (units (unk nown) date) findings: unknown) (unknown) (no (unknown) (unknown) Adrenal Glands: (units (unknown) date) Unremarkable. unknown) (unknown) (no (unknown) (unknown) Age/Sex: 72 / F (units (unknown) date) Date of Service: unknown) (unknown) (no (unknown) (unknown) [place], [place] (units ( unknown) date) [id number] unknown) (unknown) (no (unknown) (unknown) Approved by: (units (u nknown) date) rickie Watters M.D. on 12/13/2022 at 15:11 (unknown) (no (unknown) (unknown) Areas of (units (unkno wn) date) abdominal fatty unknown) stranding can be seen. Please correlate with (unknown) (no (unknown) (unknown) At least moderate (units (unknown) date) cardiomegaly. unknown) (unknown) (no (unknown) (unknown) Axial sections (units (unknown) date) were acquired from unknown) the lung bases to the pubic symphysis. (unknown) (no (unknown) (unknown) Biliary ducts: (units (unknown) date) Unremarkable. unknown) (unknown) (no (unknown) (unknown) Bladder: Normal (units (unknown) date) wall thickness. No unknown) stones. (unknown) (no (unknown) (unknown) Bones: (units (unkno wn) date) Unremarkable. unknown) Sternotomy wires are seen. (unknown) (no (unknown) (unknown) CHEST 1V, (units (unkn own) date) unknown) (unknown) (no (unknown) (unknown) [facility]: ([facility] (un known) [facility] 04/28/2022, (unknown) (no (unknown) (unknown) CT Scan Report (units (unknown) date) unknown) (unknown) (no (unknown) (unknown) Cholecystectomy (units (unknown) date) unknown) (unknown) (no (unknown) (unknown) Coronal and (units (un known) date) unknown) (unknown) (no (unknown) (unknown) : 1950 (units (unknown) date) Acct:[id number] unknown) (unknown) (no (unknown) (unknown) Dictated by: (units (u nknown) date) Connor Kumari, unknown) Thomas on 12/13/2022 at 15:07 (unknown) (no (unknown) (unknown) FINDINGS: (units (unkn own) date) unknown) (unknown) (no (unknown) (unknown) Gallbladder: (units (u nknown) date) Removed. unknown) (unknown) (no (unknown) (unknown) Heart: There is (units (unknown) date) at least moderate unknown) cardiomegaly. Prosthetic valves are (unknown) (no (unknown) (unknown) Hysterectomy (units (u nknown) date) unknown) (unknown) (no (unknown) (unknown) IMPRESSION: No (units (unknown) date) significant bowel unknown) abnormality is seen. (unknown) (no (unknown) (unknown) INDICATIONS: abd (units (unknown) date) pain RUQ LUQ unknown) (unknown) (no (unknown) (unknown) Image quality: (units (unknown) date) Excellent. unknown) (unknown) (no (unknown) (unknown) In (units (unkno wn) date) unknown) (unknown) (no (unknown) (unknown) [facility] (units (unknown) date) unknown) (unknown) (no (unknown) (unknown) [facility], (units (unknown) date) CR, XR ABDOMEN 1V, unknown) 12/13/2022, 11:38. [facility], CR, XR (unknown) (no (unknown) (unknown) Left Kidney: No (units (unknown) date) stones or unknown) hydronephrosis. (unknown) (no (unknown) (unknown) Left Ureter: No (units (unknown) date) hydroureter. unknown) (unknown) (no (unknown) (unknown) Liver: (units (unkno wn) date) Unremarkable. unknown) (unknown) (no (unknown) (unknown) Loc: ED (units (unkno wn) date) unknown) (unknown) (no (unknown) (unknown) Lung bases: There (units (unknown) date) is a small unknown) right-sided pleural effusion. (unknown) (no (unknown) (unknown) Mild ascites. (units ( unknown) date) unknown) (unknown) (no (unknown) (unknown) Miscellaneous: No (units (unknown) date) inguinal hernias unknown) are seen. (unknown) (no (unknown) (unknown) No significant (units (unknown) date) stool can be seen unknown) within the colon (unknown) (no (unknown) (unknown) Ordering (units (unkno wn) date) Provider: unknown) Olga Talbert P.A-C (unknown) (no (unknown) (unknown) PELVIS: (units (unkno wn) date) unknown) (unknown) (no (unknown) (unknown) PROCEDURE: CT (units ( unknown) date) ABDOMEN PELVIS WO unknown) CON (unknown) (no (unknown) (unknown) Pancreas: (units (unkn own) date) Unremarkable. unknown) (unknown) (no (unknown) (unknown) Patient: (units (unkno wn) date) Gómez Walls MR#: unknown) [id number] (unknown) (no (unknown) (unknown) Pelvic Nodes: (units ( unknown) date) Unremarkable. unknown) (unknown) (no (unknown) (unknown) Pelvic Organs: (units (unknown) date) This patient is unknown) status post hysterectomy. No adnexal masses are (unknown) (no (unknown) (unknown) Peritoneum: Mild (units (unknown) date) ascites is seen. unknown) No free air. (unknown) (no (unknown) (unknown) Procedure: CT (units ( unknown) date) abdomen pelvis wo unknown) con (unknown) (no (unknown) (unknown) Prosthetic (units (unk nown) date) cardiac valves unknown) partially seen (unknown) (no (unknown) (unknown) Right Kidney: No (units (unknown) date) stones or unknown) hydronephrosis. (unknown) (no (unknown) (unknown) Right Ureter: No (units (unknown) date) hydroureter. unknown) (unknown) (no (unknown) (unknown) Signed (units (unkno wn) date) unknown) (unknown) (no (unknown) (unknown) Small right-sided (units (unknown) date) pleural effusion. unknown) (unknown) (no (unknown) (unknown) Spleen: (units (unkno wn) date) Unremarkable. unknown) (unknown) (no (unknown) (unknown) Sternotomy (units (unk nown) date) unknown) (unknown) (no (unknown) (unknown) Stomach and (units (un known) date) Bowel: Stomach, unknown) small bowel loops, and colon are unremarkable. No (unknown) (no (unknown) (unknown) TECHNIQUE: (units (unk nown) date) unknown) (unknown) (no (unknown) (unknown) URINARY: (units (unkno wn) date) unknown) (unknown) (no (unknown) (unknown) Ventral Wall: No (units (unknown) date) hernia. Areas of unknown) abdominal wall fatty stranding can be (unknown) (no (unknown) (unknown) Vessels: Aorta (units (unknown) date) and inferior vena unknown) cava are normal in size. Atherosclerotic (unknown) (no (unknown) (unknown) automated (units (unkn own) date) exposure control, unknown) adjustment of mA and/or kV according to patient (unknown) (no (unknown) (unknown) calcification (units ( unknown) date) unknown) (unknown) (no (unknown) (unknown) cellulitis. (units (un known) date) unknown) (unknown) (no (unknown) (unknown) is noted. (units (unkn own) date) unknown) (unknown) (no (unknown) (unknown) partially seen. (units (unknown) date) unknown) (unknown) (no (unknown) (unknown) sagittal (units (unkno wn) date) reformats were unknown) performed. For radiation dose reduction, the following (unknown) (no (unknown) (unknown) seen. (units (unkno wn) date) unknown) (unknown) (no (unknown) (unknown) significant stool (units (unknown) date) can be seen within unknown) the colon. (unknown) (no (unknown) (unknown) size. (units (unkno wn) date) unknown) (unknown) (no (unknown) (unknown) was used: (units (unkn own) date) unknown) Result panel 186 (unknown) (no (unknown) (unknown) (no value) (units (unk nown) date) unknown) (unknown) (no (unknown) (unknown) 12/13/22 (units (unkno wn) date) 12/13/22 12/13/22 unknown) Range/Units (unknown) (no (unknown) (unknown) 12/13/22 (units (unkno wn) date) 12/13/22 unknown) Range/Units (unknown) (no (unknown) (unknown) 12/13/22 11:27 (units (unknown) date) unknown) (unknown) (no (unknown) (unknown) 12/13/22 12:35 (units (unknown) date) unknown) (unknown) (no (unknown) (unknown) 12/13/22 13:15 (units (unknown) date) unknown) (unknown) (no (unknown) (unknown) 12/13/22 14:24 (units (unknown) date) unknown) (unknown) (no (unknown) (unknown) 12/13/22 (units (unkno wn) date) unknown) (unknown) (no (unknown) (unknown) 1 inh INHALATION (units (unknown) date) BID unknown) (unknown) (no (unknown) (unknown) 1 mg PO DAILY (units ( unknown) date) unknown) (unknown) (no (unknown) (unknown) 100 mcg PO DAILY (units (unknown) date) unknown) (unknown) (no (unknown) (unknown) 100 mg PO DAILY (units (unknown) date) Qty: 90 0RF unknown) (unknown) (no (unknown) (unknown) 100 mg PO DAILY (units (unknown) date) unknown) (unknown) (no (unknown) (unknown) 10:16 12/13/22 (units (unknown) date) unknown) (unknown) (no (unknown) (unknown) 12:10 12/13/22 (units (unknown) date) unknown) (unknown) (no (unknown) (unknown) 12:11 12/13/22 (units (unknown) date) unknown) (unknown) (no (unknown) (unknown) 12:11 (units (unkno wn) date) unknown) (unknown) (no (unknown) (unknown) 12:30 12/13/22 (units (unknown) date) unknown) (unknown) (no (unknown) (unknown) 12:35 12:35 (units (un known) date) 12:35 unknown) (unknown) (no (unknown) (unknown) 12:35 13:15 (units (un known) date) unknown) (unknown) (no (unknown) (unknown) 13:00 (units (unkno wn) date) unknown) (unknown) (no (unknown) (unknown) 13:03 12/13/22 (units (unknown) date) unknown) (unknown) (no (unknown) (unknown) 13:30 (units (unkno wn) date) unknown) (unknown) (no (unknown) (unknown) 14:00 12/13/22 (units (unknown) date) unknown) (unknown) (no (unknown) (unknown) 14:01 12/13/22 (units (unknown) date) unknown) (unknown) (no (unknown) (unknown) 14:01 (units (unkno wn) date) unknown) (unknown) (no (unknown) (unknown) 3097 (units (unkno wn) date) unknown) (unknown) (no (unknown) (unknown) 325 mg PO DAILY (units (unknown) date) unknown) (unknown) (no (unknown) (unknown) 40 mg PO BEDTIME (units (unknown) date) unknown) (unknown) (no (unknown) (unknown) 40 mg PO DAILY (units (unknown) date) unknown) (unknown) (no (unknown) (unknown) 64 mg PO DAILY (units (unknown) date) unknown) (unknown) (no (unknown) (unknown) 81 mg PO DAILY (units (unknown) date) unknown) (unknown) (no (unknown) (unknown) ALT (<35) IU/L (units (unknown) date) unknown) (unknown) (no (unknown) (unknown) ALT 21 (<35) (units (u nknown) date) IU/L unknown) (unknown) (no (unknown) (unknown) AST (14-36) IU/L (units (unknown) date) unknown) (unknown) (no (unknown) (unknown) AST 42 H (14-36) (units (unknown) date) IU/L unknown) (unknown) (no (unknown) (unknown) Age/Sex: 72 / F (units (unknown) date) unknown) (unknown) (no (unknown) (unknown) Albumin (units (unkno wn) date) (3.5-5.0) g/dL unknown) (unknown) (no (unknown) (unknown) Albumin 3.8 (units (un known) date) (3.5-5.0) g/dL unknown) (unknown) (no (unknown) (unknown) Albumin/Globulin (units (unknown) date) Ratio (1.0-2.8) unknown) (unknown) (no (unknown) (unknown) Albumin/Globulin (units (unknown) date) Ratio 1.0 unknown) (1.0-2.8) (unknown) (no (unknown) (unknown) Alkaline (units (unkno wn) date) Phosphatase unknown) (38-126) U/L (unknown) (no (unknown) (unknown) Alkaline (units (unkno wn) date) Phosphatase 130 H unknown) (38-126) U/L (unknown) (no (unknown) (unknown) Allergies (units (unkn own) date) unknown) (unknown) (no (unknown) (unknown) Allergy/AdvReac (units (unknown) date) Type Severity unknown) Reaction Status Date / Time (unknown) (no (unknown) (unknown) Anisocytosis 3+ (units (unknown) date) H unknown) (unknown) (no (unknown) (unknown) Anisocytosis (units (u nknown) date) unknown) (unknown) (no (unknown) (unknown) BNP [NT-proBNP (units (unknown) date) (BNP-Adult 18+)] unknown) Stat (unknown) (no (unknown) (unknown) BUN (7-17) mg/dL (units (unknown) date) unknown) (unknown) (no (unknown) (unknown) BUN 37 H (7-17) (units (unknown) date) mg/dL unknown) (unknown) (no (unknown) (unknown) BUN/Creatinine (units (unknown) date) Ratio (6-22) unknown) (unknown) (no (unknown) (unknown) BUN/Creatinine (units (unknown) date) Ratio 15.7 (6-22) unknown) (unknown) (no (unknown) (unknown) Baso # (Auto) (units ( unknown) date) (0-100) /uL unknown) (unknown) (no (unknown) (unknown) Baso # (Auto) 0 (units (unknown) date) (0-100) /uL unknown) (unknown) (no (unknown) (unknown) Baso % (Auto) (units ( unknown) date) (0-2) % unknown) (unknown) (no (unknown) (unknown) Baso % (Auto) (units ( unknown) date) 0.6 (0-2) % unknown) (unknown) (no (unknown) (unknown) Bedside Urine (units ( unknown) date) Bilirubin - unknown) Negative (unknown) (no (unknown) (unknown) Bedside Urine (units ( unknown) date) Glucose Negative unknown) (unknown) (no (unknown) (unknown) Bedside Urine (units ( unknown) date) Ketone - Negative unknown) (unknown) (no (unknown) (unknown) Bedside Urine (units ( unknown) date) Leukocytes +/- 15 unknown) (unknown) (no (unknown) (unknown) Bedside Urine (units ( unknown) date) Nitrite - unknown) Negative (unknown) (no (unknown) (unknown) Bedside Urine (units ( unknown) date) Occult Blood - unknown) Negative (unknown) (no (unknown) (unknown) Bedside Urine (units ( unknown) date) Protein + 30 unknown) (unknown) (no (unknown) (unknown) Bedside Urine (units ( unknown) date) Urobilinogen - unknown) Negative (unknown) (no (unknown) (unknown) Bedside Urine pH (units (unknown) date) 6.5 unknown) (unknown) (no (unknown) (unknown) Blood Pressure (units (unknown) date) 160/73 H unknown) (unknown) (no (unknown) (unknown) Blood Pressure (units (unknown) date) 165/87 H unknown) (unknown) (no (unknown) (unknown) Blood Pressure (units (unknown) date) 191/97 H 12/13/22 unknown) 10:16 (unknown) (no (unknown) (unknown) Blood Pressure (units (unknown) date) 191/97 H 168/71 H unknown) (unknown) (no (unknown) (unknown) Blood Pressure (units (unknown) date) unknown) (unknown) (no (unknown) (unknown) CBC Auto Diff (units ( unknown) date) [Complete Blood unknown) Count AUTO DIFF] Stat (unknown) (no (unknown) (unknown) CK-MB (CK-2) (units (u nknown) date) (<2.37) ng/mL unknown) (unknown) (no (unknown) (unknown) CK-MB (CK-2) (units (u nknown) date) 0.85 (<2.37) unknown) ng/mL (unknown) (no (unknown) (unknown) CK-MB (CK-2) Rel (units (unknown) date) Index (1.5-5.0) % unknown) (unknown) (no (unknown) (unknown) CK-MB (CK-2) Rel (units (unknown) date) Index 0.6 L unknown) (1.5-5.0) % (unknown) (no (unknown) (unknown) CMP (units (unkno wn) date) [Comprehensive unknown) Metabolic Panel] Stat (unknown) (no (unknown) (unknown) Calcium (units (unkno wn) date) (8.4-10.2) mg/dL unknown) (unknown) (no (unknown) (unknown) Calcium 8.5 (units (un known) date) (8.4-10.2) mg/dL unknown) (unknown) (no (unknown) (unknown) Carbon Dioxide (units (unknown) date) (22-32) mmol/L unknown) (unknown) (no (unknown) (unknown) Carbon Dioxide (units (unknown) date) 25 (22-32) mmol/L unknown) (unknown) (no (unknown) (unknown) Chest [XR chest (units (unknown) date) 1V] Stat unknown) (unknown) (no (unknown) (unknown) Chief Complaint: (units (unknown) date) Back Pain/Injury unknown) (unknown) (no (unknown) (unknown) Chloride (units (unkno wn) date) (98-107) mmol/L unknown) (unknown) (no (unknown) (unknown) Chloride 103 (units (u nknown) date) (98-107) mmol/L unknown) (unknown) (no (unknown) (unknown) Course (units (unkno wn) date) unknown) (unknown) (no (unknown) (unknown) Creatinine (units (unk nown) date) (0.52-1.04) mg/dL unknown) (unknown) (no (unknown) (unknown) Creatinine 2.35 (units (unknown) date) H (0.52-1.04) unknown) mg/dL (unknown) (no (unknown) (unknown) : 1950 (units (unknown) date) Acct:[id number] unknown) (unknown) (no (unknown) (unknown) Date of Service: (units (unknown) date) 12/13/22 unknown) (unknown) (no (unknown) (unknown) Departure (units (unkn own) date) unknown) (unknown) (no (unknown) (unknown) Discharge Plan (units (unknown) date) unknown) (unknown) (no (unknown) (unknown) Discontinued (units (u nknown) date) Medications unknown) (unknown) (no (unknown) (unknown) Documented By: (units (unknown) date) KB unknown) (unknown) (no (unknown) (unknown) ED Orders (units (unkn own) date) unknown) (unknown) (no (unknown) (unknown) EKG-12 Lead Stat (units (unknown) date) unknown) (unknown) (no (unknown) (unknown) ER Physician: (units ( unknown) date) Olga Talbert unknown) P.A-C (unknown) (no (unknown) (unknown) Emergency Report (units (unknown) date) unknown) (unknown) (no (unknown) (unknown) Eos # (Auto) (units (u nknown) date) (0-450) /uL unknown) (unknown) (no (unknown) (unknown) Eos # (Auto) 100 (units (unknown) date) (0-450) /uL unknown) (unknown) (no (unknown) (unknown) Eos % (Auto) (units (u nknown) date) (2-4) % unknown) (unknown) (no (unknown) (unknown) Eos % (Auto) 2.3 (units (unknown) date) (2-4) % unknown) (unknown) (no (unknown) (unknown) Esterase (units (unkno wn) date) unknown) (unknown) (no (unknown) (unknown) Estimated GFR (units ( unknown) date) (>60) mL/min unknown) (unknown) (no (unknown) (unknown) Estimated GFR 21 (units (unknown) date) L (>60) mL/min unknown) (unknown) (no (unknown) (unknown) Exam (units (unkno wn) date) unknown) (unknown) (no (unknown) (unknown) General (units (unkno wn) date) unknown) (unknown) (no (unknown) (unknown) Globulin (units (unkno wn) date) (1.7-4.1) g/dL unknown) (unknown) (no (unknown) (unknown) Globulin 3.9 (units (u nknown) date) (1.7-4.1) g/dL unknown) (unknown) (no (unknown) (unknown) Glucose (80-110) (units (unknown) date) mg/dL unknown) (unknown) (no (unknown) (unknown) Glucose 132 H (units ( unknown) date) (80-110) mg/dL unknown) (unknown) (no (unknown) (unknown) HPI - Back (units (unk nown) date) Pain/Injury unknown) (unknown) (no (unknown) (unknown) Hct (36-46) % (units ( unknown) date) unknown) (unknown) (no (unknown) (unknown) Hct 29.9 L (units (unk nown) date) (36-46) % unknown) (unknown) (no (unknown) (unknown) Hgb (12.0-16.0) (units (unknown) date) g/dL unknown) (unknown) (no (unknown) (unknown) Hgb 9.6 L (units (unkn own) date) (12.0-16.0) g/dL unknown) (unknown) (no (unknown) (unknown) Home Medications (units (unknown) date) unknown) (unknown) (no (unknown) (unknown) Initial Vital (units ( unknown) date) Signs unknown) (unknown) (no (unknown) (unknown) Initial Vital (units ( unknown) date) Signs: unknown) (unknown) (no (unknown) (unknown) [facility] (units (unknown) date) [address] unknown) [place] [address] (unknown) (no (unknown) (unknown) Lab Data (units (unkno wn) date) unknown) (unknown) (no (unknown) (unknown) Lab Results (units (un known) date) unknown) (unknown) (no (unknown) (unknown) Labs: (units (unkno wn) date) unknown) (unknown) (no (unknown) (unknown) Last Admin: (units (un known) date) 12/13/22 14:15 unknown) Dose: 1,000 mls/hr (unknown) (no (unknown) (unknown) Lipase (23-300) (units (unknown) date) U/L unknown) (unknown) (no (unknown) (unknown) Lipase 201 (units (unk nown) date) (23-300) U/L unknown) (unknown) (no (unknown) (unknown) Lipase Stat (units (un known) date) unknown) (unknown) (no (unknown) (unknown) Aramis Godfrey, (units (unknown) date) MD [Primary Care unknown) Provider] (unknown) (no (unknown) (unknown) Lymph # (Auto) (units (unknown) date) (8500-3247) /uL unknown) (unknown) (no (unknown) (unknown) Lymph # (Auto) (units (unknown) date) 1000 L unknown) (9045-4025) /uL (unknown) (no (unknown) (unknown) Lymph % (Auto) (units (unknown) date) (25-40) % unknown) (unknown) (no (unknown) (unknown) Lymph % (Auto) (units (unknown) date) 19.0 L (25-40) % unknown) (unknown) (no (unknown) (unknown) MCH (26-34) PG (units (unknown) date) unknown) (unknown) (no (unknown) (unknown) MCH 32.9 (26-34) (units (unknown) date) PG unknown) (unknown) (no (unknown) (unknown) MCHC (30-36) % (units (unknown) date) unknown) (unknown) (no (unknown) (unknown) MCHC 32.1 (units (unkn own) date) (30-36) % unknown) (unknown) (no (unknown) (unknown) MCV (80-100) fL (units (unknown) date) unknown) (unknown) (no (unknown) (unknown) MCV 102.6 H (units (un known) date) (80-100) fL unknown) (unknown) (no (unknown) (unknown) MDM - Back (units (unk nown) date) Pain/Injury unknown) (unknown) (no (unknown) (unknown) Macrocytosis 1+ (units (unknown) date) H unknown) (unknown) (no (unknown) (unknown) Macrocytosis (units (u nknown) date) unknown) (unknown) (no (unknown) (unknown) Medication (units (unk nown) date) Instructions unknown) Recorded Confirmed (unknown) (no (unknown) (unknown) Medication (units (unk nown) date) Instructions unknown) Recorded (unknown) (no (unknown) (unknown) Stone # (Auto) (units ( unknown) date) (0-900) /uL unknown) (unknown) (no (unknown) (unknown) Stone # (Auto) (units ( unknown) date) 800 (0-900) /uL unknown) (unknown) (no (unknown) (unknown) Stone % (Auto) (units ( unknown) date) (3-14) % unknown) (unknown) (no (unknown) (unknown) Stone % (Auto) (units ( unknown) date) 16.0 H (3-14) % unknown) (unknown) (no (unknown) (unknown) NT-Pro-B (units (unkno wn) date) Natriuret Pep unknown) (<125) pg/mL (unknown) (no (unknown) (unknown) NT-Pro-B (units (unkno wn) date) Natriuret Pep unknown) 4890 H (<125) pg/mL (unknown) (no (unknown) (unknown) Neut # (Auto) (units ( unknown) date) (2031-1542) /uL unknown) (unknown) (no (unknown) (unknown) Neut # (Auto) (units ( unknown) date) 3300 (5377-1534) unknown) /uL (unknown) (no (unknown) (unknown) Neut % (Auto) (units ( unknown) date) (50-75) % unknown) (unknown) (no (unknown) (unknown) Neut % (Auto) (units ( unknown) date) 62.1 (50-75) % unknown) (unknown) (no (unknown) (unknown) No Action (units (unkn own) date) unknown) (unknown) (no (unknown) (unknown) Ordered: (units (unkno wn) date) unknown) (unknown) (no (unknown) (unknown) Orders (units (unkno wn) date) unknown) (unknown) (no (unknown) (unknown) Oxygen Delivery (units (unknown) date) Method 12/13/22 unknown) 10:16 (unknown) (no (unknown) (unknown) Oxygen Delivery (units (unknown) date) Method Room Air unknown) (unknown) (no (unknown) (unknown) Oxygen Delivery (units (unknown) date) Method unknown) (unknown) (no (unknown) (unknown) Patient History (units (unknown) date) unknown) (unknown) (no (unknown) (unknown) Patient: (units (unkno wn) date) Gómez Walls MR#: unknown) [id number] (unknown) (no (unknown) (unknown) Plt Count (units (unkn own) date) (150-400) X103/uL unknown) (unknown) (no (unknown) (unknown) Plt Count 86 L (units (unknown) date) (150-400) X103/uL unknown) (unknown) (no (unknown) (unknown) Potassium (units (unkn own) date) (3.4-5.1) mmol/L unknown) (unknown) (no (unknown) (unknown) Potassium 4.1 (units ( unknown) date) (3.4-5.1) mmol/L unknown) (unknown) (no (unknown) (unknown) Prescriptions: (units (unknown) date) unknown) (unknown) (no (unknown) (unknown) Previous Rx's (units ( unknown) date) unknown) (unknown) (no (unknown) (unknown) Pulse Oximetry (units (unknown) date) 94 98 98 unknown) (unknown) (no (unknown) (unknown) Pulse Oximetry (units (unknown) date) 96 12/13/22 10:16 unknown) (unknown) (no (unknown) (unknown) Pulse Oximetry (units (unknown) date) 96 95 unknown) (unknown) (no (unknown) (unknown) Pulse Oximetry (units (unknown) date) 97 96 unknown) (unknown) (no (unknown) (unknown) Pulse Oximetry (units (unknown) date) 98 98 unknown) (unknown) (no (unknown) (unknown) Pulse Rate 60 (units ( unknown) date) 12/13/22 10:16 unknown) (unknown) (no (unknown) (unknown) Pulse Rate 60 59 (units (unknown) date) L unknown) (unknown) (no (unknown) (unknown) Pulse Rate 60 (units ( unknown) date) unknown) (unknown) (no (unknown) (unknown) Pulse Rate 65 65 (units (unknown) date) unknown) (unknown) (no (unknown) (unknown) Pulse Rate 66 63 (units (unknown) date) 61 unknown) (unknown) (no (unknown) (unknown) RBC (4.0-5.2) (units ( unknown) date) X106/uL unknown) (unknown) (no (unknown) (unknown) RBC 2.92 L (units (unk nown) date) (4.0-5.2) X106/uL unknown) (unknown) (no (unknown) (unknown) RBC Morphology (units (unknown) date) Not Reportable unknown) (unknown) (no (unknown) (unknown) RBC Morphology (units (unknown) date) unknown) (unknown) (no (unknown) (unknown) RDW (11.6-14.8) (units (unknown) date) % unknown) (unknown) (no (unknown) (unknown) RDW 19.9 H (units (unk nown) date) (11.6-14.8) % unknown) (unknown) (no (unknown) (unknown) Referrals: (units (unk nown) date) unknown) (unknown) (no (unknown) (unknown) Related Data (units (u nknown) date) unknown) (unknown) (no (unknown) (unknown) Respiratory Rate (units (unknown) date) 18 12/13/22 10:16 unknown) (unknown) (no (unknown) (unknown) Respiratory Rate (units (unknown) date) 18 unknown) (unknown) (no (unknown) (unknown) Respiratory Rate (units (unknown) date) unknown) (unknown) (no (unknown) (unknown) Signed By: (units (unk nown) date) unknown) (unknown) (no (unknown) (unknown) Smoking Status: (units (unknown) date) Former smoker unknown) (unknown) (no (unknown) (unknown) Social History (units (unknown) date) (Reviewed unknown) 10/15/22 @ 18:46 by Ciara Pacheco DO) (unknown) (no (unknown) (unknown) Sodium (137-145) (units (unknown) date) mmol/L unknown) (unknown) (no (unknown) (unknown) Sodium 138 (units (unk nown) date) (137-145) mmol/L unknown) (unknown) (no (unknown) (unknown) Sodium Chloride (units (unknown) date) (Normal Saline unknown) 0.9%) 500 mls @ 1,000 mls/hr IV BOLUS ONE (unknown) (no (unknown) (unknown) Source: patient (units (unknown) date) unknown) (unknown) (no (unknown) (unknown) Stated (units (unkno wn) date) Complaint: unknown) Constipation no BM x7days (unknown) (no (unknown) (unknown) Stop: 12/13/22 (units (unknown) date) 14:39 unknown) (unknown) (no (unknown) (unknown) Substance Use (units ( unknown) date) Type: does not unknown) use (unknown) (no (unknown) (unknown) Temperature 97.7 (units (unknown) date) F 12/13/22 10:16 unknown) (unknown) (no (unknown) (unknown) Temperature 97.7 (units (unknown) date) F unknown) (unknown) (no (unknown) (unknown) Temperature (units (un known) date) unknown) (unknown) (no (unknown) (unknown) Time Seen by (units (u nknown) date) Provider: unknown) 01/29/23 12:32 (unknown) (no (unknown) (unknown) Total Bilirubin (units (unknown) date) (0.2-1.3) mg/dL unknown) (unknown) (no (unknown) (unknown) Total Bilirubin (units (unknown) date) 0.9 (0.2-1.3) unknown) mg/dL (unknown) (no (unknown) (unknown) Total Creatine (units (unknown) date) Kinase (30-135) unknown) U/L (unknown) (no (unknown) (unknown) Total Creatine (units (unknown) date) Kinase 150 H unknown) (30-135) U/L (unknown) (no (unknown) (unknown) Total Protein (units ( unknown) date) (6.3-8.2) g/dL unknown) (unknown) (no (unknown) (unknown) Total Protein (units ( unknown) date) 7.7 (6.3-8.2) unknown) g/dL (unknown) (no (unknown) (unknown) Troponin + CK (units ( unknown) date) Cardiac Panel unknown) Stat (unknown) (no (unknown) (unknown) Troponin I (units (unk nown) date) (0.01-0.034) unknown) ng/mL (unknown) (no (unknown) (unknown) Troponin I 0.030 (units (unknown) date) (0.01-0.034) unknown) ng/mL (unknown) (no (unknown) (unknown) Ur Culture (units (unk nown) date) Indicated? unknown) Specimen cultured (unknown) (no (unknown) (unknown) Ur Culture (units (unk nown) date) Indicated? unknown) (unknown) (no (unknown) (unknown) Ur Leukocyte (units (u nknown) date) Esterase unknown) (NEGATIVE) (unknown) (no (unknown) (unknown) Ur Leukocyte (units (u nknown) date) Esterase 1+ H unknown) (NEGATIVE) (unknown) (no (unknown) (unknown) Ur Specific (units (un known) date) [place] unknown) (1.000-1.035) (unknown) (no (unknown) (unknown) Ur Specific (units (un known) date) [place] 1.010 unknown) (1.000-1.035) (unknown) (no (unknown) (unknown) Ur Squamous (units (un known) date) Epith Cells unknown) (0-5/HPF) (unknown) (no (unknown) (unknown) Ur Squamous (units (un known) date) Epith Cells 1-5 unknown) /hpf (0-5/HPF) (unknown) (no (unknown) (unknown) Urinalysis and (units (unknown) date) Microscopic Stat unknown) (unknown) (no (unknown) (unknown) Urine Appearance (units (unknown) date) Clear unknown) (unknown) (no (unknown) (unknown) Urine Appearance (units (unknown) date) unknown) (unknown) (no (unknown) (unknown) Urine Bacteria (units (unknown) date) (None) unknown) (unknown) (no (unknown) (unknown) Urine Bacteria (units (unknown) date) Few (2-10) H unknown) (None) (unknown) (no (unknown) (unknown) Urine Bilirubin (units (unknown) date) (NEGATIVE) unknown) (unknown) (no (unknown) (unknown) Urine Bilirubin (units (unknown) date) Negative unknown) (NEGATIVE) (unknown) (no (unknown) (unknown) Urine Color (units (un known) date) Yellow unknown) (unknown) (no (unknown) (unknown) Urine Color (units (un known) date) unknown) (unknown) (no (unknown) (unknown) Urine Culture (units ( unknown) date) Stat unknown) (unknown) (no (unknown) (unknown) Urine Dip (units (unkn own) date) unknown) (unknown) (no (unknown) (unknown) Urine Glucose (units ( unknown) date) (UA) (Negative) unknown) g/dL (unknown) (no (unknown) (unknown) Urine Glucose (units ( unknown) date) (UA) Negative unknown) (Negative) g/dL (unknown) (no (unknown) (unknown) Urine Ketones (units ( unknown) date) (NEGATIVE) unknown) (unknown) (no (unknown) (unknown) Urine Ketones (units ( unknown) date) Negative unknown) (NEGATIVE) (unknown) (no (unknown) (unknown) Urine Nitrate (units ( unknown) date) (Negative) unknown) (unknown) (no (unknown) (unknown) Urine Nitrate (units ( unknown) date) Negative unknown) (Negative) (unknown) (no (unknown) (unknown) Urine Occult (units (u nknown) date) Blood (Negative) unknown) (unknown) (no (unknown) (unknown) Urine Occult (units (u nknown) date) Blood Negative unknown) (Negative) (unknown) (no (unknown) (unknown) Urine Protein (units ( unknown) date) (Negative) unknown) (unknown) (no (unknown) (unknown) Urine Protein 1+ (units (unknown) date) H (Negative) unknown) (unknown) (no (unknown) (unknown) Urine RBC (units (unkn own) date) (0-5/HPF) unknown) (unknown) (no (unknown) (unknown) Urine RBC (units (unkn own) date) 0-1/hpf (0-5/HPF) unknown) (unknown) (no (unknown) (unknown) Urine Specific (units (unknown) date) [place] 1.01 unknown) (unknown) (no (unknown) (unknown) Urine (units (unkno wn) date) Urobilinogen unknown) (0.2) E.U./dL (unknown) (no (unknown) (unknown) Urine (units (unkno wn) date) Urobilinogen 1.0 unknown) (0.2) E.U./dL (unknown) (no (unknown) (unknown) Urine WBC (units (unkn own) date) (0-5/HPF) unknown) (unknown) (no (unknown) (unknown) Urine WBC (units (unkn own) date) 1-5/hpf (0-5/HPF) unknown) (unknown) (no (unknown) (unknown) Urine pH (units (unkno wn) date) (4.5-8.0) unknown) (unknown) (no (unknown) (unknown) Urine pH 7.0 (units (u nknown) date) (4.5-8.0) unknown) (unknown) (no (unknown) (unknown) Vital Signs - 8 (units (unknown) date) hr unknown) (unknown) (no (unknown) (unknown) Vital Signs (units (un known) date) unknown) (unknown) (no (unknown) (unknown) Vital signs: (units (u nknown) date) unknown) (unknown) (no (unknown) (unknown) WBC (4.5-11.0) (units (unknown) date) X103/uL unknown) (unknown) (no (unknown) (unknown) WBC 5.3 (units (unkno wn) date) (4.5-11.0) unknown) X103/uL (unknown) (no (unknown) (unknown) XR abdomen 1V (units ( unknown) date) Stat unknown) (unknown) (no (unknown) (unknown) [Embedded Image (units (unknown) date) Not Available] unknown) (unknown) (no (unknown) (unknown) alcohol intake (units (unknown) date) frequency: unknown) holidays/special occasions only (unknown) (no (unknown) (unknown) alcohol intake: (units (unknown) date) current unknown) (unknown) (no (unknown) (unknown) allopurinol 100 (units (unknown) date) mg tablet 100 mg unknown) PO DAILY 10/15/22 10/15/22 (unknown) (no (unknown) (unknown) allopurinol 100 (units (unknown) date) mg tablet unknown) (unknown) (no (unknown) (unknown) anastrozole 1 mg (units (unknown) date) tablet 1 mg PO unknown) DAILY 10/15/22 10/15/22 (unknown) (no (unknown) (unknown) anastrozole 1 mg (units (unknown) date) tablet unknown) (unknown) (no (unknown) (unknown) aspirin 81 mg (units ( unknown) date) Capsule unknown) (unknown) (no (unknown) (unknown) aspirin 81 mg (units ( unknown) date) capsule 81 mg PO unknown) DAILY 10/15/22 10/15/22 (unknown) (no (unknown) (unknown) atorvastatin 40 (units (unknown) date) mg tablet 40 mg unknown) PO BEDTIME 10/15/22 10/15/22 (unknown) (no (unknown) (unknown) atorvastatin 40 (units (unknown) date) mg tablet unknown) (unknown) (no (unknown) (unknown) device (units (unkno wn) date) unknown) (unknown) (no (unknown) (unknown) ferrous sulfate (units (unknown) date) 325 mg (65 mg 325 unknown) mg PO DAILY 10/15/22 10/15/22 (unknown) (no (unknown) (unknown) ferrous sulfate (units (unknown) date) 325 mg (65 mg unknown) iron) Tablet (unknown) (no (unknown) (unknown) fluticasone 500 (units (unknown) date) mcg-salmeterol 50 unknown) 1 inh inhalation BID 10/15/22 10/15/22 (unknown) (no (unknown) (unknown) fluticasone (units (un known) date) propion-salmetero unknown) l [Advair Diskus] 500-50 mcg/dose blister with (unknown) (no (unknown) (unknown) gentamicin (units (unk nown) date) Allergy Verified unknown) 10/15/22 17:02 (unknown) (no (unknown) (unknown) household (units (unkn own) date) members: spouse unknown) (unknown) (no (unknown) (unknown) inhalation (units (unk nown) date) (Advair Diskus) unknown) (unknown) (no (unknown) (unknown) iron) tablet (units (u nknown) date) unknown) (unknown) (no (unknown) (unknown) levothyroxine (units ( unknown) date) 100 mcg tablet unknown) 100 mcg PO DAILY 10/15/22 10/15/22 (unknown) (no (unknown) (unknown) levothyroxine (units ( unknown) date) 100 mcg tablet unknown) (unknown) (no (unknown) (unknown) magnesium (units (unkn own) date) chloride 64 mg 64 unknown) mg PO DAILY 10/15/22 10/15/22 (unknown) (no (unknown) (unknown) magnesium (units (unkn own) date) chloride 64 mg unknown) Tablet Extended Release (unknown) (no (unknown) (unknown) mcg/dose blistr (units (unknown) date) powdr for unknown) (unknown) (no (unknown) (unknown) metoprolol (units (unk nown) date) succinate 100 mg unknown) 100 mg PO DAILY #90 tabs 10/18/22 (unknown) (no (unknown) (unknown) metoprolol (units (unk nown) date) succinate 100 mg unknown) tablet extended release 24 hr (unknown) (no (unknown) (unknown) tablet,extended (units (unknown) date) release 24 hr unknown) (unknown) (no (unknown) (unknown) tablet,extended (units (unknown) date) release unknown) (unknown) (no (unknown) (unknown) torsemide 20 mg (units (unknown) date) tablet 40 mg PO unknown) DAILY 10/15/22 10/15/22 (unknown) (no (unknown) (unknown) torsemide 20 mg (units (unknown) date) tablet unknown) Result panel 187 (unknown) (no (unknown) (unknown) (no value) (units (unk nown) date) unknown) (unknown) (no (unknown) (unknown) 12/13/22 (units (unkno wn) date) 12/13/22 12/13/22 unknown) Range/Units (unknown) (no (unknown) (unknown) 12/13/22 (units (unkno wn) date) 12/13/22 unknown) Range/Units (unknown) (no (unknown) (unknown) 12/13/22 11:27 (units (unknown) date) unknown) (unknown) (no (unknown) (unknown) 12/13/22 12:35 (units (unknown) date) unknown) (unknown) (no (unknown) (unknown) 12/13/22 13:15 (units (unknown) date) unknown) (unknown) (no (unknown) (unknown) 12/13/22 14:24 (units (unknown) date) unknown) (unknown) (no (unknown) (unknown) 12/13/22 15:35 (units (unknown) date) unknown) (unknown) (no (unknown) (unknown) 12/13/22 (units (unkno wn) date) unknown) (unknown) (no (unknown) (unknown) 1 inh INHALATION (units (unknown) date) BID unknown) (unknown) (no (unknown) (unknown) 1 mg PO DAILY (units ( unknown) date) unknown) (unknown) (no (unknown) (unknown) 100 mcg PO DAILY (units (unknown) date) unknown) (unknown) (no (unknown) (unknown) 100 mg PO DAILY (units (unknown) date) Qty: 90 0RF unknown) (unknown) (no (unknown) (unknown) 100 mg PO DAILY (units (unknown) date) unknown) (unknown) (no (unknown) (unknown) 10:16 12/13/22 (units (unknown) date) unknown) (unknown) (no (unknown) (unknown) 12:10 12/13/22 (units (unknown) date) unknown) (unknown) (no (unknown) (unknown) 12:11 12/13/22 (units (unknown) date) unknown) (unknown) (no (unknown) (unknown) 12:11 (units (unkno wn) date) unknown) (unknown) (no (unknown) (unknown) 12:30 12/13/22 (units (unknown) date) unknown) (unknown) (no (unknown) (unknown) 12:35 12:35 (units (un known) date) 12:35 unknown) (unknown) (no (unknown) (unknown) 12:35 13:15 (units (un known) date) unknown) (unknown) (no (unknown) (unknown) 13:00 (units (unkno wn) date) unknown) (unknown) (no (unknown) (unknown) 13:03 12/13/22 (units (unknown) date) unknown) (unknown) (no (unknown) (unknown) 13:30 (units (unkno wn) date) unknown) (unknown) (no (unknown) (unknown) 14:00 12/13/22 (units (unknown) date) unknown) (unknown) (no (unknown) (unknown) 14:01 12/13/22 (units (unknown) date) unknown) (unknown) (no (unknown) (unknown) 14:01 (units (unkno wn) date) unknown) (unknown) (no (unknown) (unknown) 3097 (units (unkno wn) date) unknown) (unknown) (no (unknown) (unknown) 325 mg PO DAILY (units (unknown) date) unknown) (unknown) (no (unknown) (unknown) 40 mg PO BEDTIME (units (unknown) date) unknown) (unknown) (no (unknown) (unknown) 40 mg PO DAILY (units (unknown) date) unknown) (unknown) (no (unknown) (unknown) 64 mg PO DAILY (units (unknown) date) unknown) (unknown) (no (unknown) (unknown) 81 mg PO DAILY (units (unknown) date) unknown) (unknown) (no (unknown) (unknown) ALT (<35) IU/L (units (unknown) date) unknown) (unknown) (no (unknown) (unknown) ALT 21 (<35) (units (u nknown) date) IU/L unknown) (unknown) (no (unknown) (unknown) AST (14-36) IU/L (units (unknown) date) unknown) (unknown) (no (unknown) (unknown) AST 42 H (14-36) (units (unknown) date) IU/L unknown) (unknown) (no (unknown) (unknown) Age/Sex: 72 / F (units (unknown) date) unknown) (unknown) (no (unknown) (unknown) Albumin (units (unkno wn) date) (3.5-5.0) g/dL unknown) (unknown) (no (unknown) (unknown) Albumin 3.8 (units (un known) date) (3.5-5.0) g/dL unknown) (unknown) (no (unknown) (unknown) Albumin/Globulin (units (unknown) date) Ratio (1.0-2.8) unknown) (unknown) (no (unknown) (unknown) Albumin/Globulin (units (unknown) date) Ratio 1.0 unknown) (1.0-2.8) (unknown) (no (unknown) (unknown) Alkaline (units (unkno wn) date) Phosphatase unknown) (38-126) U/L (unknown) (no (unknown) (unknown) Alkaline (units (unkno wn) date) Phosphatase 130 H unknown) (38-126) U/L (unknown) (no (unknown) (unknown) Allergies (units (unkn own) date) unknown) (unknown) (no (unknown) (unknown) Allergy/AdvReac (units (unknown) date) Type Severity unknown) Reaction Status Date / Time (unknown) (no (unknown) (unknown) Anisocytosis 3+ (units (unknown) date) H unknown) (unknown) (no (unknown) (unknown) Anisocytosis (units (u nknown) date) unknown) (unknown) (no (unknown) (unknown) BNP [NT-proBNP (units (unknown) date) (BNP-Adult 18+)] unknown) Stat (unknown) (no (unknown) (unknown) BUN (7-17) mg/dL (units (unknown) date) unknown) (unknown) (no (unknown) (unknown) BUN 37 H (7-17) (units (unknown) date) mg/dL unknown) (unknown) (no (unknown) (unknown) BUN/Creatinine (units (unknown) date) Ratio (6-22) unknown) (unknown) (no (unknown) (unknown) BUN/Creatinine (units (unknown) date) Ratio 15.7 (6-22) unknown) (unknown) (no (unknown) (unknown) Baso # (Auto) (units ( unknown) date) (0-100) /uL unknown) (unknown) (no (unknown) (unknown) Baso # (Auto) 0 (units (unknown) date) (0-100) /uL unknown) (unknown) (no (unknown) (unknown) Baso % (Auto) (units ( unknown) date) (0-2) % unknown) (unknown) (no (unknown) (unknown) Baso % (Auto) (units ( unknown) date) 0.6 (0-2) % unknown) (unknown) (no (unknown) (unknown) Bedside Urine (units ( unknown) date) Bilirubin - unknown) Negative (unknown) (no (unknown) (unknown) Bedside Urine (units ( unknown) date) Glucose Negative unknown) (unknown) (no (unknown) (unknown) Bedside Urine (units ( unknown) date) Ketone - Negative unknown) (unknown) (no (unknown) (unknown) Bedside Urine (units ( unknown) date) Leukocytes +/- 15 unknown) (unknown) (no (unknown) (unknown) Bedside Urine (units ( unknown) date) Nitrite - unknown) Negative (unknown) (no (unknown) (unknown) Bedside Urine (units ( unknown) date) Occult Blood - unknown) Negative (unknown) (no (unknown) (unknown) Bedside Urine (units ( unknown) date) Protein + 30 unknown) (unknown) (no (unknown) (unknown) Bedside Urine (units ( unknown) date) Urobilinogen - unknown) Negative (unknown) (no (unknown) (unknown) Bedside Urine pH (units (unknown) date) 6.5 unknown) (unknown) (no (unknown) (unknown) Blood Pressure (units (unknown) date) 160/73 H unknown) (unknown) (no (unknown) (unknown) Blood Pressure (units (unknown) date) 165/87 H unknown) (unknown) (no (unknown) (unknown) Blood Pressure (units (unknown) date) 191/97 H 12/13/22 unknown) 10:16 (unknown) (no (unknown) (unknown) Blood Pressure (units (unknown) date) 191/97 H 168/71 H unknown) (unknown) (no (unknown) (unknown) Blood Pressure (units (unknown) date) unknown) (unknown) (no (unknown) (unknown) CBC Auto Diff (units ( unknown) date) [Complete Blood unknown) Count AUTO DIFF] Stat (unknown) (no (unknown) (unknown) CK-MB (CK-2) (units (u nknown) date) (<2.37) ng/mL unknown) (unknown) (no (unknown) (unknown) CK-MB (CK-2) (units (u nknown) date) 0.85 (<2.37) unknown) ng/mL (unknown) (no (unknown) (unknown) CK-MB (CK-2) Rel (units (unknown) date) Index (1.5-5.0) % unknown) (unknown) (no (unknown) (unknown) CK-MB (CK-2) Rel (units (unknown) date) Index 0.6 L unknown) (1.5-5.0) % (unknown) (no (unknown) (unknown) CMP (units (unkno wn) date) [Comprehensive unknown) Metabolic Panel] Stat (unknown) (no (unknown) (unknown) CT abdomen (units (unk nown) date) pelvis wo con unknown) Stat (unknown) (no (unknown) (unknown) Calcium (units (unkno wn) date) (8.4-10.2) mg/dL unknown) (unknown) (no (unknown) (unknown) Calcium 8.5 (units (un known) date) (8.4-10.2) mg/dL unknown) (unknown) (no (unknown) (unknown) Carbon Dioxide (units (unknown) date) (22-32) mmol/L unknown) (unknown) (no (unknown) (unknown) Carbon Dioxide (units (unknown) date) 25 (22-32) mmol/L unknown) (unknown) (no (unknown) (unknown) Chest [XR chest (units (unknown) date) 1V] Stat unknown) (unknown) (no (unknown) (unknown) Chief Complaint: (units (unknown) date) Back Pain/Injury unknown) (unknown) (no (unknown) (unknown) Chloride (units (unkno wn) date) (98-107) mmol/L unknown) (unknown) (no (unknown) (unknown) Chloride 103 (units (u nknown) date) (98-107) mmol/L unknown) (unknown) (no (unknown) (unknown) Course (units (unkno wn) date) unknown) (unknown) (no (unknown) (unknown) Creatinine (units (unk nown) date) (0.52-1.04) mg/dL unknown) (unknown) (no (unknown) (unknown) Creatinine 2.35 (units (unknown) date) H (0.52-1.04) unknown) mg/dL (unknown) (no (unknown) (unknown) : 1950 (units (unknown) date) Acct:[id number] unknown) (unknown) (no (unknown) (unknown) Date of Service: (units (unknown) date) 12/13/22 unknown) (unknown) (no (unknown) (unknown) Departure (units (unkn own) date) unknown) (unknown) (no (unknown) (unknown) Discharge Plan (units (unknown) date) unknown) (unknown) (no (unknown) (unknown) Discontinued (units (u nknown) date) Medications unknown) (unknown) (no (unknown) (unknown) Documented By: (units (unknown) date) KB unknown) (unknown) (no (unknown) (unknown) ED Orders (units (unkn own) date) unknown) (unknown) (no (unknown) (unknown) EKG-12 Lead Stat (units (unknown) date) unknown) (unknown) (no (unknown) (unknown) ER Physician: (units ( unknown) date) Olga Talbert unknown) P.A-C (unknown) (no (unknown) (unknown) Emergency Report (units (unknown) date) unknown) (unknown) (no (unknown) (unknown) Eos # (Auto) (units (u nknown) date) (0-450) /uL unknown) (unknown) (no (unknown) (unknown) Eos # (Auto) 100 (units (unknown) date) (0-450) /uL unknown) (unknown) (no (unknown) (unknown) Eos % (Auto) (units (u nknown) date) (2-4) % unknown) (unknown) (no (unknown) (unknown) Eos % (Auto) 2.3 (units (unknown) date) (2-4) % unknown) (unknown) (no (unknown) (unknown) Esterase (units (unkno wn) date) unknown) (unknown) (no (unknown) (unknown) Estimated GFR (units ( unknown) date) (>60) mL/min unknown) (unknown) (no (unknown) (unknown) Estimated GFR 21 (units (unknown) date) L (>60) mL/min unknown) (unknown) (no (unknown) (unknown) Exam (units (unkno wn) date) unknown) (unknown) (no (unknown) (unknown) General (units (unkno wn) date) unknown) (unknown) (no (unknown) (unknown) Globulin (units (unkno wn) date) (1.7-4.1) g/dL unknown) (unknown) (no (unknown) (unknown) Globulin 3.9 (units (u nknown) date) (1.7-4.1) g/dL unknown) (unknown) (no (unknown) (unknown) Glucose (80-110) (units (unknown) date) mg/dL unknown) (unknown) (no (unknown) (unknown) Glucose 132 H (units ( unknown) date) (80-110) mg/dL unknown) (unknown) (no (unknown) (unknown) HPI - Back (units (unk nown) date) Pain/Injury unknown) (unknown) (no (unknown) (unknown) Hct (36-46) % (units ( unknown) date) unknown) (unknown) (no (unknown) (unknown) Hct 29.9 L (units (unk nown) date) (36-46) % unknown) (unknown) (no (unknown) (unknown) Hgb (12.0-16.0) (units (unknown) date) g/dL unknown) (unknown) (no (unknown) (unknown) Hgb 9.6 L (units (unkn own) date) (12.0-16.0) g/dL unknown) (unknown) (no (unknown) (unknown) Home Medications (units (unknown) date) unknown) (unknown) (no (unknown) (unknown) Initial Vital (units ( unknown) date) Signs unknown) (unknown) (no (unknown) (unknown) Initial Vital (units ( unknown) date) Signs: unknown) (unknown) (no (unknown) (unknown) [facility] (units (unknown) date) [address] unknown) [place] [address] (unknown) (no (unknown) (unknown) Lab Data (units (unkno wn) date) unknown) (unknown) (no (unknown) (unknown) Lab Results (units (un known) date) unknown) (unknown) (no (unknown) (unknown) Labs: (units (unkno wn) date) unknown) (unknown) (no (unknown) (unknown) Last Admin: (units (un known) date) 12/13/22 14:15 unknown) Dose: 1,000 mls/hr (unknown) (no (unknown) (unknown) Lipase (23-300) (units (unknown) date) U/L unknown) (unknown) (no (unknown) (unknown) Lipase 201 (units (unk nown) date) (23-300) U/L unknown) (unknown) (no (unknown) (unknown) Lipase Stat (units (un known) date) unknown) (unknown) (no (unknown) (unknown) Aramis Godfrey, (units (unknown) date) [Primary Care unknown) Provider] (unknown) (no (unknown) (unknown) Lymph # (Auto) (units (unknown) date) (7990-8647) /uL unknown) (unknown) (no (unknown) (unknown) Lymph # (Auto) (units (unknown) date) 1000 L unknown) (9727-8931) /uL (unknown) (no (unknown) (unknown) Lymph % (Auto) (units (unknown) date) (25-40) % unknown) (unknown) (no (unknown) (unknown) Lymph % (Auto) (units (unknown) date) 19.0 L (25-40) % unknown) (unknown) (no (unknown) (unknown) MCH (26-34) PG (units (unknown) date) unknown) (unknown) (no (unknown) (unknown) MCH 32.9 (26-34) (units (unknown) date) PG unknown) (unknown) (no (unknown) (unknown) MCHC (30-36) % (units (unknown) date) unknown) (unknown) (no (unknown) (unknown) MCHC 32.1 (units (unkn own) date) (30-36) % unknown) (unknown) (no (unknown) (unknown) MCV (80-100) fL (units (unknown) date) unknown) (unknown) (no (unknown) (unknown) MCV 102.6 H (units (un known) date) (80-100) fL unknown) (unknown) (no (unknown) (unknown) MDM - Back (units (unk nown) date) Pain/Injury unknown) (unknown) (no (unknown) (unknown) Macrocytosis 1+ (units (unknown) date) H unknown) (unknown) (no (unknown) (unknown) Macrocytosis (units (u nknown) date) unknown) (unknown) (no (unknown) (unknown) Medication (units (unk nown) date) Instructions unknown) Recorded Confirmed (unknown) (no (unknown) (unknown) Medication (units (unk nown) date) Instructions unknown) Recorded (unknown) (no (unknown) (unknown) Stone # (Auto) (units ( unknown) date) (0-900) /uL unknown) (unknown) (no (unknown) (unknown) Stone # (Auto) (units ( unknown) date) 800 (0-900) /uL unknown) (unknown) (no (unknown) (unknown) Stone % (Auto) (units ( unknown) date) (3-14) % unknown) (unknown) (no (unknown) (unknown) Stone % (Auto) (units ( unknown) date) 16.0 H (3-14) % unknown) (unknown) (no (unknown) (unknown) NT-Pro-B (units (unkno wn) date) Natriuret Pep unknown) (<125) pg/mL (unknown) (no (unknown) (unknown) NT-Pro-B (units (unkno wn) date) Natriuret Pep unknown) 4890 H (<125) pg/mL (unknown) (no (unknown) (unknown) Neut # (Auto) (units ( unknown) date) (4134-4688) /uL unknown) (unknown) (no (unknown) (unknown) Neut # (Auto) (units ( unknown) date) 3300 (7859-8085) unknown) /uL (unknown) (no (unknown) (unknown) Neut % (Auto) (units ( unknown) date) (50-75) % unknown) (unknown) (no (unknown) (unknown) Neut % (Auto) (units ( unknown) date) 62.1 (50-75) % unknown) (unknown) (no (unknown) (unknown) No Action (units (unkn own) date) unknown) (unknown) (no (unknown) (unknown) Ordered: (units (unkno wn) date) unknown) (unknown) (no (unknown) (unknown) Orders (units (unkno wn) date) unknown) (unknown) (no (unknown) (unknown) Oxygen Delivery (units (unknown) date) Method 12/13/22 unknown) 10:16 (unknown) (no (unknown) (unknown) Oxygen Delivery (units (unknown) date) Method Room Air unknown) (unknown) (no (unknown) (unknown) Oxygen Delivery (units (unknown) date) Method unknown) (unknown) (no (unknown) (unknown) Patient History (units (unknown) date) unknown) (unknown) (no (unknown) (unknown) Patient: (units (unkno wn) date) Gómez Walls MR#: unknown) [id number] (unknown) (no (unknown) (unknown) Plt Count (units (unkn own) date) (150-400) X103/uL unknown) (unknown) (no (unknown) (unknown) Plt Count 86 L (units (unknown) date) (150-400) X103/uL unknown) (unknown) (no (unknown) (unknown) Potassium (units (unkn own) date) (3.4-5.1) mmol/L unknown) (unknown) (no (unknown) (unknown) Potassium 4.1 (units ( unknown) date) (3.4-5.1) mmol/L unknown) (unknown) (no (unknown) (unknown) Prescriptions: (units (unknown) date) unknown) (unknown) (no (unknown) (unknown) Previous Rx's (units ( unknown) date) unknown) (unknown) (no (unknown) (unknown) Pulse Oximetry (units (unknown) date) 94 98 98 unknown) (unknown) (no (unknown) (unknown) Pulse Oximetry (units (unknown) date) 96 12/13/22 10:16 unknown) (unknown) (no (unknown) (unknown) Pulse Oximetry (units (unknown) date) 96 95 unknown) (unknown) (no (unknown) (unknown) Pulse Oximetry (units (unknown) date) 97 96 unknown) (unknown) (no (unknown) (unknown) Pulse Oximetry (units (unknown) date) 98 98 unknown) (unknown) (no (unknown) (unknown) Pulse Rate 60 (units ( unknown) date) 12/13/22 10:16 unknown) (unknown) (no (unknown) (unknown) Pulse Rate 60 59 (units (unknown) date) L unknown) (unknown) (no (unknown) (unknown) Pulse Rate 60 (units ( unknown) date) unknown) (unknown) (no (unknown) (unknown) Pulse Rate 65 65 (units (unknown) date) unknown) (unknown) (no (unknown) (unknown) Pulse Rate 66 63 (units (unknown) date) 61 unknown) (unknown) (no (unknown) (unknown) RBC (4.0-5.2) (units ( unknown) date) X106/uL unknown) (unknown) (no (unknown) (unknown) RBC 2.92 L (units (unk nown) date) (4.0-5.2) X106/uL unknown) (unknown) (no (unknown) (unknown) RBC Morphology (units (unknown) date) Not Reportable unknown) (unknown) (no (unknown) (unknown) RBC Morphology (units (unknown) date) unknown) (unknown) (no (unknown) (unknown) RDW (11.6-14.8) (units (unknown) date) % unknown) (unknown) (no (unknown) (unknown) RDW 19.9 H (units (unk nown) date) (11.6-14.8) % unknown) (unknown) (no (unknown) (unknown) Referrals: (units (unk nown) date) unknown) (unknown) (no (unknown) (unknown) Related Data (units (u nknown) date) unknown) (unknown) (no (unknown) (unknown) Respiratory Rate (units (unknown) date) 18 12/13/22 10:16 unknown) (unknown) (no (unknown) (unknown) Respiratory Rate (units (unknown) date) 18 unknown) (unknown) (no (unknown) (unknown) Respiratory Rate (units (unknown) date) unknown) (unknown) (no (unknown) (unknown) Signed By: (units (unk nown) date) unknown) (unknown) (no (unknown) (unknown) Smoking Status: (units (unknown) date) Former smoker unknown) (unknown) (no (unknown) (unknown) Social History (units (unknown) date) (Reviewed unknown) 10/15/22 @ 18:46 by Ciara Pacheco DO) (unknown) (no (unknown) (unknown) Sodium (137-145) (units (unknown) date) mmol/L unknown) (unknown) (no (unknown) (unknown) Sodium 138 (units (unk nown) date) (137-145) mmol/L unknown) (unknown) (no (unknown) (unknown) Sodium Chloride (units (unknown) date) (Normal Saline unknown) 0.9%) 500 mls @ 1,000 mls/hr IV BOLUS ONE (unknown) (no (unknown) (unknown) Source: patient (units (unknown) date) unknown) (unknown) (no (unknown) (unknown) Stated (units (unkno wn) date) Complaint: unknown) Constipation no BM x7days (unknown) (no (unknown) (unknown) Stop: 12/13/22 (units (unknown) date) 14:39 unknown) (unknown) (no (unknown) (unknown) Substance Use (units ( unknown) date) Type: does not unknown) use (unknown) (no (unknown) (unknown) Temperature 97.7 (units (unknown) date) F 12/13/22 10:16 unknown) (unknown) (no (unknown) (unknown) Temperature 97.7 (units (unknown) date) F unknown) (unknown) (no (unknown) (unknown) Temperature (units (un known) date) unknown) (unknown) (no (unknown) (unknown) Time Seen by (units (u nknown) date) Provider: unknown) 12/13/22 12:32 (unknown) (no (unknown) (unknown) Total Bilirubin (units (unknown) date) (0.2-1.3) mg/dL unknown) (unknown) (no (unknown) (unknown) Total Bilirubin (units (unknown) date) 0.9 (0.2-1.3) unknown) mg/dL (unknown) (no (unknown) (unknown) Total Creatine (units (unknown) date) Kinase (30-135) unknown) U/L (unknown) (no (unknown) (unknown) Total Creatine (units (unknown) date) Kinase 150 H unknown) (30-135) U/L (unknown) (no (unknown) (unknown) Total Protein (units ( unknown) date) (6.3-8.2) g/dL unknown) (unknown) (no (unknown) (unknown) Total Protein (units ( unknown) date) 7.7 (6.3-8.2) unknown) g/dL (unknown) (no (unknown) (unknown) Troponin + CK (units ( unknown) date) Cardiac Panel unknown) Stat (unknown) (no (unknown) (unknown) Troponin I (units (unk nown) date) (0.01-0.034) unknown) ng/mL (unknown) (no (unknown) (unknown) Troponin I 0.030 (units (unknown) date) (0.01-0.034) unknown) ng/mL (unknown) (no (unknown) (unknown) Ur Culture (units (unk nown) date) Indicated? unknown) Specimen cultured (unknown) (no (unknown) (unknown) Ur Culture (units (unk nown) date) Indicated? unknown) (unknown) (no (unknown) (unknown) Ur Leukocyte (units (u nknown) date) Esterase unknown) (NEGATIVE) (unknown) (no (unknown) (unknown) Ur Leukocyte (units (u nknown) date) Esterase 1+ H unknown) (NEGATIVE) (unknown) (no (unknown) (unknown) Ur Specific (units (un known) date) [place] unknown) (1.000-1.035) (unknown) (no (unknown) (unknown) Ur Specific (units (un known) date) [place] 1.010 unknown) (1.000-1.035) (unknown) (no (unknown) (unknown) Ur Squamous (units (un known) date) Epith Cells unknown) (0-5/HPF) (unknown) (no (unknown) (unknown) Ur Squamous (units (un known) date) Epith Cells 1-5 unknown) /hpf (0-5/HPF) (unknown) (no (unknown) (unknown) Urinalysis and (units (unknown) date) Microscopic Stat unknown) (unknown) (no (unknown) (unknown) Urine Appearance (units (unknown) date) Clear unknown) (unknown) (no (unknown) (unknown) Urine Appearance (units (unknown) date) unknown) (unknown) (no (unknown) (unknown) Urine Bacteria (units (unknown) date) (None) unknown) (unknown) (no (unknown) (unknown) Urine Bacteria (units (unknown) date) Few (2-10) H unknown) (None) (unknown) (no (unknown) (unknown) Urine Bilirubin (units (unknown) date) (NEGATIVE) unknown) (unknown) (no (unknown) (unknown) Urine Bilirubin (units (unknown) date) Negative unknown) (NEGATIVE) (unknown) (no (unknown) (unknown) Urine Color (units (un known) date) Yellow unknown) (unknown) (no (unknown) (unknown) Urine Color (units (un known) date) unknown) (unknown) (no (unknown) (unknown) Urine Culture (units ( unknown) date) Stat unknown) (unknown) (no (unknown) (unknown) Urine Dip (units (unkn own) date) unknown) (unknown) (no (unknown) (unknown) Urine Glucose (units ( unknown) date) (UA) (Negative) unknown) g/dL (unknown) (no (unknown) (unknown) Urine Glucose (units ( unknown) date) (UA) Negative unknown) (Negative) g/dL (unknown) (no (unknown) (unknown) Urine Ketones (units ( unknown) date) (NEGATIVE) unknown) (unknown) (no (unknown) (unknown) Urine Ketones (units ( unknown) date) Negative unknown) (NEGATIVE) (unknown) (no (unknown) (unknown) Urine Nitrate (units ( unknown) date) (Negative) unknown) (unknown) (no (unknown) (unknown) Urine Nitrate (units ( unknown) date) Negative unknown) (Negative) (unknown) (no (unknown) (unknown) Urine Occult (units (u nknown) date) Blood (Negative) unknown) (unknown) (no (unknown) (unknown) Urine Occult (units (u nknown) date) Blood Negative unknown) (Negative) (unknown) (no (unknown) (unknown) Urine Protein (units ( unknown) date) (Negative) unknown) (unknown) (no (unknown) (unknown) Urine Protein 1+ (units (unknown) date) H (Negative) unknown) (unknown) (no (unknown) (unknown) Urine RBC (units (unkn own) date) (0-5/HPF) unknown) (unknown) (no (unknown) (unknown) Urine RBC (units (unkn own) date) 0-1/hpf (0-5/HPF) unknown) (unknown) (no (unknown) (unknown) Urine Specific (units (unknown) date) [place] 1.01 unknown) (unknown) (no (unknown) (unknown) Urine (units (unkno wn) date) Urobilinogen unknown) (0.2) E.U./dL (unknown) (no (unknown) (unknown) Urine (units (unkno wn) date) Urobilinogen 1.0 unknown) (0.2) E.U./dL (unknown) (no (unknown) (unknown) Urine WBC (units (unkn own) date) (0-5/HPF) unknown) (unknown) (no (unknown) (unknown) Urine WBC (units (unkn own) date) 1-5/hpf (0-5/HPF) unknown) (unknown) (no (unknown) (unknown) Urine pH (units (unkno wn) date) (4.5-8.0) unknown) (unknown) (no (unknown) (unknown) Urine pH 7.0 (units (u nknown) date) (4.5-8.0) unknown) (unknown) (no (unknown) (unknown) Vital Signs - 8 (units (unknown) date) hr unknown) (unknown) (no (unknown) (unknown) Vital Signs (units (un known) date) unknown) (unknown) (no (unknown) (unknown) Vital signs: (units (u nknown) date) unknown) (unknown) (no (unknown) (unknown) WBC (4.5-11.0) (units (unknown) date) X103/uL unknown) (unknown) (no (unknown) (unknown) WBC 5.3 (units (unkno wn) date) (4.5-11.0) unknown) X103/uL (unknown) (no (unknown) (unknown) XR abdomen 1V (units ( unknown) date) Stat unknown) (unknown) (no (unknown) (unknown) [Embedded Image (units (unknown) date) Not Available] unknown) (unknown) (no (unknown) (unknown) alcohol intake (units (unknown) date) frequency: unknown) holidays/special occasions only (unknown) (no (unknown) (unknown) alcohol intake: (units (unknown) date) current unknown) (unknown) (no (unknown) (unknown) allopurinol 100 (units (unknown) date) mg tablet 100 mg unknown) PO DAILY 10/15/22 10/15/22 (unknown) (no (unknown) (unknown) allopurinol 100 (units (unknown) date) mg tablet unknown) (unknown) (no (unknown) (unknown) anastrozole 1 mg (units (unknown) date) tablet 1 mg PO unknown) DAILY 10/15/22 10/15/22 (unknown) (no (unknown) (unknown) anastrozole 1 mg (units (unknown) date) tablet unknown) (unknown) (no (unknown) (unknown) aspirin 81 mg (units ( unknown) date) Capsule unknown) (unknown) (no (unknown) (unknown) aspirin 81 mg (units ( unknown) date) capsule 81 mg PO unknown) DAILY 10/15/22 10/15/22 (unknown) (no (unknown) (unknown) atorvastatin 40 (units (unknown) date) mg tablet 40 mg unknown) PO BEDTIME 10/15/22 10/15/22 (unknown) (no (unknown) (unknown) atorvastatin 40 (units (unknown) date) mg tablet unknown) (unknown) (no (unknown) (unknown) device (units (unkno wn) date) unknown) (unknown) (no (unknown) (unknown) ferrous sulfate (units (unknown) date) 325 mg (65 mg 325 unknown) mg PO DAILY 10/15/22 10/15/22 (unknown) (no (unknown) (unknown) ferrous sulfate (units (unknown) date) 325 mg (65 mg unknown) iron) Tablet (unknown) (no (unknown) (unknown) fluticasone 500 (units (unknown) date) mcg-salmeterol 50 unknown) 1 inh inhalation BID 10/15/22 10/15/22 (unknown) (no (unknown) (unknown) fluticasone (units (un known) date) propion-salmetero unknown) l [Advair Diskus] 500-50 mcg/dose blister with (unknown) (no (unknown) (unknown) gentamicin (units (unk nown) date) Allergy Verified unknown) 10/15/22 17:02 (unknown) (no (unknown) (unknown) household (units (unkn own) date) members: spouse unknown) (unknown) (no (unknown) (unknown) inhalation (units (unk nown) date) (Advair Diskus) unknown) (unknown) (no (unknown) (unknown) iron) tablet (units (u nknown) date) unknown) (unknown) (no (unknown) (unknown) levothyroxine (units ( unknown) date) 100 mcg tablet unknown) 100 mcg PO DAILY 10/15/22 10/15/22 (unknown) (no (unknown) (unknown) levothyroxine (units ( unknown) date) 100 mcg tablet unknown) (unknown) (no (unknown) (unknown) magnesium (units (unkn own) date) chloride 64 mg 64 unknown) mg PO DAILY 10/15/22 10/15/22 (unknown) (no (unknown) (unknown) magnesium (units (unkn own) date) chloride 64 mg unknown) Tablet Extended Release (unknown) (no (unknown) (unknown) mcg/dose blistr (units (unknown) date) powdr for unknown) (unknown) (no (unknown) (unknown) metoprolol (units (unk nown) date) succinate 100 mg unknown) 100 mg PO DAILY #90 tabs 10/18/22 (unknown) (no (unknown) (unknown) metoprolol (units (unk nown) date) succinate 100 mg unknown) tablet extended release 24 hr (unknown) (no (unknown) (unknown) tablet,extended (units (unknown) date) release 24 hr unknown) (unknown) (no (unknown) (unknown) tablet,extended (units (unknown) date) release unknown) (unknown) (no (unknown) (unknown) torsemide 20 mg (units (unknown) date) tablet 40 mg PO unknown) DAILY 10/15/22 10/15/22 (unknown) (no (unknown) (unknown) torsemide 20 mg (units (unknown) date) tablet unknown) Result panel 188 (unknown) (no (unknown) (unknown) (no value) (units (unk nown) date) unknown) (unknown) (no (unknown) (unknown) 12/13/22 (units (unkno wn) date) 12/13/22 12/13/22 unknown) Range/Units (unknown) (no (unknown) (unknown) 12/13/22 (units (unkno wn) date) 12/13/22 unknown) Range/Units (unknown) (no (unknown) (unknown) 12/13/22 11:27 (units (unknown) date) unknown) (unknown) (no (unknown) (unknown) 12/13/22 12:35 (units (unknown) date) unknown) (unknown) (no (unknown) (unknown) 12/13/22 13:15 (units (unknown) date) unknown) (unknown) (no (unknown) (unknown) 12/13/22 14:24 (units (unknown) date) unknown) (unknown) (no (unknown) (unknown) 12/13/22 15:35 (units (unknown) date) unknown) (unknown) (no (unknown) (unknown) 12/13/22 (units (unkno wn) date) unknown) (unknown) (no (unknown) (unknown) 1 inh INHALATION (units (unknown) date) BID unknown) (unknown) (no (unknown) (unknown) 1 mg PO DAILY (units ( unknown) date) unknown) (unknown) (no (unknown) (unknown) 100 mcg PO DAILY (units (unknown) date) unknown) (unknown) (no (unknown) (unknown) 100 mg PO DAILY (units (unknown) date) Qty: 90 0RF unknown) (unknown) (no (unknown) (unknown) 100 mg PO DAILY (units (unknown) date) unknown) (unknown) (no (unknown) (unknown) 10:16 12/13/22 (units (unknown) date) unknown) (unknown) (no (unknown) (unknown) 12:10 12/13/22 (units (unknown) date) unknown) (unknown) (no (unknown) (unknown) 12:11 12/13/22 (units (unknown) date) unknown) (unknown) (no (unknown) (unknown) 12:11 (units (unkno wn) date) unknown) (unknown) (no (unknown) (unknown) 12:30 12/13/22 (units (unknown) date) unknown) (unknown) (no (unknown) (unknown) 12:35 12:35 (units (un known) date) 12:35 unknown) (unknown) (no (unknown) (unknown) 12:35 13:15 (units (un known) date) unknown) (unknown) (no (unknown) (unknown) 13:00 (units (unkno wn) date) unknown) (unknown) (no (unknown) (unknown) 13:03 12/13/22 (units (unknown) date) unknown) (unknown) (no (unknown) (unknown) 13:30 (units (unkno wn) date) unknown) (unknown) (no (unknown) (unknown) 14:00 12/13/22 (units (unknown) date) unknown) (unknown) (no (unknown) (unknown) 14:01 12/13/22 (units (unknown) date) unknown) (unknown) (no (unknown) (unknown) 14:01 (units (unkno wn) date) unknown) (unknown) (no (unknown) (unknown) 3097 (units (unkno wn) date) unknown) (unknown) (no (unknown) (unknown) 325 mg PO DAILY (units (unknown) date) unknown) (unknown) (no (unknown) (unknown) 40 mg PO BEDTIME (units (unknown) date) unknown) (unknown) (no (unknown) (unknown) 40 mg PO DAILY (units (unknown) date) unknown) (unknown) (no (unknown) (unknown) 64 mg PO DAILY (units (unknown) date) unknown) (unknown) (no (unknown) (unknown) 81 mg PO DAILY (units (unknown) date) unknown) (unknown) (no (unknown) (unknown) ALT (<35) IU/L (units (unknown) date) unknown) (unknown) (no (unknown) (unknown) ALT 21 (<35) (units (u nknown) date) IU/L unknown) (unknown) (no (unknown) (unknown) AST (14-36) IU/L (units (unknown) date) unknown) (unknown) (no (unknown) (unknown) AST 42 H (14-36) (units (unknown) date) IU/L unknown) (unknown) (no (unknown) (unknown) Age/Sex: 72 / F (units (unknown) date) unknown) (unknown) (no (unknown) (unknown) Albumin (units (unkno wn) date) (3.5-5.0) g/dL unknown) (unknown) (no (unknown) (unknown) Albumin 3.8 (units (un known) date) (3.5-5.0) g/dL unknown) (unknown) (no (unknown) (unknown) Albumin/Globulin (units (unknown) date) Ratio (1.0-2.8) unknown) (unknown) (no (unknown) (unknown) Albumin/Globulin (units (unknown) date) Ratio 1.0 unknown) (1.0-2.8) (unknown) (no (unknown) (unknown) Alkaline (units (unkno wn) date) Phosphatase unknown) (38-126) U/L (unknown) (no (unknown) (unknown) Alkaline (units (unkno wn) date) Phosphatase 130 H unknown) (38-126) U/L (unknown) (no (unknown) (unknown) Allergies (units (unkn own) date) unknown) (unknown) (no (unknown) (unknown) Allergy/AdvReac (units (unknown) date) Type Severity unknown) Reaction Status Date / Time (unknown) (no (unknown) (unknown) Anisocytosis 3+ (units (unknown) date) H unknown) (unknown) (no (unknown) (unknown) Anisocytosis (units (u nknown) date) unknown) (unknown) (no (unknown) (unknown) BNP [NT-proBNP (units (unknown) date) (BNP-Adult 18+)] unknown) Stat (unknown) (no (unknown) (unknown) BUN (7-17) mg/dL (units (unknown) date) unknown) (unknown) (no (unknown) (unknown) BUN 37 H (7-17) (units (unknown) date) mg/dL unknown) (unknown) (no (unknown) (unknown) BUN/Creatinine (units (unknown) date) Ratio (6-22) unknown) (unknown) (no (unknown) (unknown) BUN/Creatinine (units (unknown) date) Ratio 15.7 (6-22) unknown) (unknown) (no (unknown) (unknown) Baso # (Auto) (units ( unknown) date) (0-100) /uL unknown) (unknown) (no (unknown) (unknown) Baso # (Auto) 0 (units (unknown) date) (0-100) /uL unknown) (unknown) (no (unknown) (unknown) Baso % (Auto) (units ( unknown) date) (0-2) % unknown) (unknown) (no (unknown) (unknown) Baso % (Auto) (units ( unknown) date) 0.6 (0-2) % unknown) (unknown) (no (unknown) (unknown) Bedside Urine (units ( unknown) date) Bilirubin - unknown) Negative (unknown) (no (unknown) (unknown) Bedside Urine (units ( unknown) date) Glucose Negative unknown) (unknown) (no (unknown) (unknown) Bedside Urine (units ( unknown) date) Ketone - Negative unknown) (unknown) (no (unknown) (unknown) Bedside Urine (units ( unknown) date) Leukocytes +/- 15 unknown) (unknown) (no (unknown) (unknown) Bedside Urine (units ( unknown) date) Nitrite - unknown) Negative (unknown) (no (unknown) (unknown) Bedside Urine (units ( unknown) date) Occult Blood - unknown) Negative (unknown) (no (unknown) (unknown) Bedside Urine (units ( unknown) date) Protein + 30 unknown) (unknown) (no (unknown) (unknown) Bedside Urine (units ( unknown) date) Urobilinogen - unknown) Negative (unknown) (no (unknown) (unknown) Bedside Urine pH (units (unknown) date) 6.5 unknown) (unknown) (no (unknown) (unknown) Blood Pressure (units (unknown) date) 160/73 H unknown) (unknown) (no (unknown) (unknown) Blood Pressure (units (unknown) date) 165/87 H unknown) (unknown) (no (unknown) (unknown) Blood Pressure (units (unknown) date) 191/97 H 12/13/22 unknown) 10:16 (unknown) (no (unknown) (unknown) Blood Pressure (units (unknown) date) 191/97 H 168/71 H unknown) (unknown) (no (unknown) (unknown) Blood Pressure (units (unknown) date) unknown) (unknown) (no (unknown) (unknown) CBC Auto Diff (units ( unknown) date) [Complete Blood unknown) Count AUTO DIFF] Stat (unknown) (no (unknown) (unknown) CK-MB (CK-2) (units (u nknown) date) (<2.37) ng/mL unknown) (unknown) (no (unknown) (unknown) CK-MB (CK-2) (units (u nknown) date) 0.85 (<2.37) unknown) ng/mL (unknown) (no (unknown) (unknown) CK-MB (CK-2) Rel (units (unknown) date) Index (1.5-5.0) % unknown) (unknown) (no (unknown) (unknown) CK-MB (CK-2) Rel (units (unknown) date) Index 0.6 L unknown) (1.5-5.0) % (unknown) (no (unknown) (unknown) CMP (units (unkno wn) date) [Comprehensive unknown) Metabolic Panel] Stat (unknown) (no (unknown) (unknown) CT abdomen (units (unk nown) date) pelvis wo con unknown) Stat (unknown) (no (unknown) (unknown) Calcium (units (unkno wn) date) (8.4-10.2) mg/dL unknown) (unknown) (no (unknown) (unknown) Calcium 8.5 (units (un known) date) (8.4-10.2) mg/dL unknown) (unknown) (no (unknown) (unknown) Carbon Dioxide (units (unknown) date) (22-32) mmol/L unknown) (unknown) (no (unknown) (unknown) Carbon Dioxide (units (unknown) date) 25 (22-32) mmol/L unknown) (unknown) (no (unknown) (unknown) Chest [XR chest (units (unknown) date) 1V] Stat unknown) (unknown) (no (unknown) (unknown) Chief Complaint: (units (unknown) date) Back Pain/Injury unknown) (unknown) (no (unknown) (unknown) Chloride (units (unkno wn) date) (98-107) mmol/L unknown) (unknown) (no (unknown) (unknown) Chloride 103 (units (u nknown) date) (98-107) mmol/L unknown) (unknown) (no (unknown) (unknown) Course (units (unkno wn) date) unknown) (unknown) (no (unknown) (unknown) Creatinine (units (unk nown) date) (0.52-1.04) mg/dL unknown) (unknown) (no (unknown) (unknown) Creatinine 2.35 (units (unknown) date) H (0.52-1.04) unknown) mg/dL (unknown) (no (unknown) (unknown) : 1950 (units (unknown) date) Acct:[id number] unknown) (unknown) (no (unknown) (unknown) Date of Service: (units (unknown) date) 12/13/22 unknown) (unknown) (no (unknown) (unknown) Departure (units (unkn own) date) unknown) (unknown) (no (unknown) (unknown) Discharge Plan (units (unknown) date) unknown) (unknown) (no (unknown) (unknown) Discontinued (units (u nknown) date) Medications unknown) (unknown) (no (unknown) (unknown) Documented By: (units (unknown) date) KB unknown) (unknown) (no (unknown) (unknown) ED Orders (units (unkn own) date) unknown) (unknown) (no (unknown) (unknown) EKG-12 Lead Stat (units (unknown) date) unknown) (unknown) (no (unknown) (unknown) ER Physician: (units ( unknown) date) Yarczower,Olga unknown) P.A-C (unknown) (no (unknown) (unknown) Emergency Report (units (unknown) date) unknown) (unknown) (no (unknown) (unknown) Eos # (Auto) (units (u nknown) date) (0-450) /uL unknown) (unknown) (no (unknown) (unknown) Eos # (Auto) 100 (units (unknown) date) (0-450) /uL unknown) (unknown) (no (unknown) (unknown) Eos % (Auto) (units (u nknown) date) (2-4) % unknown) (unknown) (no (unknown) (unknown) Eos % (Auto) 2.3 (units (unknown) date) (2-4) % unknown) (unknown) (no (unknown) (unknown) Esterase (units (unkno wn) date) unknown) (unknown) (no (unknown) (unknown) Estimated GFR (units ( unknown) date) (>60) mL/min unknown) (unknown) (no (unknown) (unknown) Estimated GFR 21 (units (unknown) date) L (>60) mL/min unknown) (unknown) (no (unknown) (unknown) Exam (units (unkno wn) date) unknown) (unknown) (no (unknown) (unknown) Furosemide 60 (units ( unknown) date) mg/ Sodium unknown) (Chloride) 56 mls @ 112 mls/hr IV NOW ONE (unknown) (no (unknown) (unknown) General (units (unkno wn) date) unknown) (unknown) (no (unknown) (unknown) Globulin (units (unkno wn) date) (1.7-4.1) g/dL unknown) (unknown) (no (unknown) (unknown) Globulin 3.9 (units (u nknown) date) (1.7-4.1) g/dL unknown) (unknown) (no (unknown) (unknown) Glucose (80-110) (units (unknown) date) mg/dL unknown) (unknown) (no (unknown) (unknown) Glucose 132 H (units ( unknown) date) (80-110) mg/dL unknown) (unknown) (no (unknown) (unknown) HPI - Back (units (unk nown) date) Pain/Injury unknown) (unknown) (no (unknown) (unknown) Hct (36-46) % (units ( unknown) date) unknown) (unknown) (no (unknown) (unknown) Hct 29.9 L (units (unk nown) date) (36-46) % unknown) (unknown) (no (unknown) (unknown) Hgb (12.0-16.0) (units (unknown) date) g/dL unknown) (unknown) (no (unknown) (unknown) Hgb 9.6 L (units (unkn own) date) (12.0-16.0) g/dL unknown) (unknown) (no (unknown) (unknown) Home Medications (units (unknown) date) unknown) (unknown) (no (unknown) (unknown) Initial Vital (units ( unknown) date) Signs unknown) (unknown) (no (unknown) (unknown) Initial Vital (units ( unknown) date) Signs: unknown) (unknown) (no (unknown) (unknown) [facility] (units (unknown) date) [address] [place] [address] unknown) [place] [address] (unknown) (no (unknown) (unknown) Lab Data (units (unkno wn) date) unknown) (unknown) (no (unknown) (unknown) Lab Results (units (un known) date) unknown) (unknown) (no (unknown) (unknown) Labs: (units (unkno wn) date) unknown) (unknown) (no (unknown) (unknown) Last Admin: (units (un known) date) 12/13/22 14:15 unknown) Dose: 1,000 mls/hr (unknown) (no (unknown) (unknown) Lipase (23-300) (units (unknown) date) U/L unknown) (unknown) (no (unknown) (unknown) Lipase 201 (units (unk nown) date) (23-300) U/L unknown) (unknown) (no (unknown) (unknown) Lipase Stat (units (un known) date) unknown) (unknown) (no (unknown) (unknown) Aramis Godfrey, (units (unknown) date) [Primary Care unknown) Provider] (unknown) (no (unknown) (unknown) Lymph # (Auto) (units (unknown) date) (5018-7587) /uL unknown) (unknown) (no (unknown) (unknown) Lymph # (Auto) (units (unknown) date) 1000 L unknown) (9661-2265) /uL (unknown) (no (unknown) (unknown) Lymph % (Auto) (units (unknown) date) (25-40) % unknown) (unknown) (no (unknown) (unknown) Lymph % (Auto) (units (unknown) date) 19.0 L (25-40) % unknown) (unknown) (no (unknown) (unknown) MCH (26-34) PG (units (unknown) date) unknown) (unknown) (no (unknown) (unknown) MCH 32.9 (26-34) (units (unknown) date) PG unknown) (unknown) (no (unknown) (unknown) MCHC (30-36) % (units (unknown) date) unknown) (unknown) (no (unknown) (unknown) MCHC 32.1 (units (unkn own) date) (30-36) % unknown) (unknown) (no (unknown) (unknown) MCV (80-100) fL (units (unknown) date) unknown) (unknown) (no (unknown) (unknown) MCV 102.6 H (units (un known) date) (80-100) fL unknown) (unknown) (no (unknown) (unknown) MDM - Back (units (unk nown) date) Pain/Injury unknown) (unknown) (no (unknown) (unknown) Macrocytosis 1+ (units (unknown) date) H unknown) (unknown) (no (unknown) (unknown) Macrocytosis (units (u nknown) date) unknown) (unknown) (no (unknown) (unknown) Medication (units (unk nown) date) Instructions unknown) Recorded Confirmed (unknown) (no (unknown) (unknown) Medication (units (unk nown) date) Instructions unknown) Recorded (unknown) (no (unknown) (unknown) Stone # (Auto) (units ( unknown) date) (0-900) /uL unknown) (unknown) (no (unknown) (unknown) Stone # (Auto) (units ( unknown) date) 800 (0-900) /uL unknown) (unknown) (no (unknown) (unknown) Stone % (Auto) (units ( unknown) date) (3-14) % unknown) (unknown) (no (unknown) (unknown) Stone % (Auto) (units ( unknown) date) 16.0 H (3-14) % unknown) (unknown) (no (unknown) (unknown) NT-Pro-B (units (unkno wn) date) Natriuret Pep unknown) (<125) pg/mL (unknown) (no (unknown) (unknown) NT-Pro-B (units (unkno wn) date) Natriuret Pep unknown) 4890 H (<125) pg/mL (unknown) (no (unknown) (unknown) Neut # (Auto) (units ( unknown) date) (2056-9869) /uL unknown) (unknown) (no (unknown) (unknown) Neut # (Auto) (units ( unknown) date) 3300 (8172-7918) unknown) /uL (unknown) (no (unknown) (unknown) Neut % (Auto) (units ( unknown) date) (50-75) % unknown) (unknown) (no (unknown) (unknown) Neut % (Auto) (units ( unknown) date) 62.1 (50-75) % unknown) (unknown) (no (unknown) (unknown) No Action (units (unkn own) date) unknown) (unknown) (no (unknown) (unknown) Ordered: (units (unkno wn) date) unknown) (unknown) (no (unknown) (unknown) Orders (units (unkno wn) date) unknown) (unknown) (no (unknown) (unknown) Oxygen Delivery (units (unknown) date) Method 12/13/22 unknown) 10:16 (unknown) (no (unknown) (unknown) Oxygen Delivery (units (unknown) date) Method Room Air unknown) (unknown) (no (unknown) (unknown) Oxygen Delivery (units (unknown) date) Method unknown) (unknown) (no (unknown) (unknown) Patient History (units (unknown) date) unknown) (unknown) (no (unknown) (unknown) Patient: (units (unkno wn) date) Gómez Walls MR#: unknown) [id number] (unknown) (no (unknown) (unknown) Plt Count (units (unkn own) date) (150-400) X103/uL unknown) (unknown) (no (unknown) (unknown) Plt Count 86 L (units (unknown) date) (150-400) X103/uL unknown) (unknown) (no (unknown) (unknown) Potassium (units (unkn own) date) (3.4-5.1) mmol/L unknown) (unknown) (no (unknown) (unknown) Potassium 4.1 (units ( unknown) date) (3.4-5.1) mmol/L unknown) (unknown) (no (unknown) (unknown) Prescriptions: (units (unknown) date) unknown) (unknown) (no (unknown) (unknown) Previous Rx's (units ( unknown) date) unknown) (unknown) (no (unknown) (unknown) Pulse Oximetry (units (unknown) date) 94 98 98 unknown) (unknown) (no (unknown) (unknown) Pulse Oximetry (units (unknown) date) 96 12/13/22 10:16 unknown) (unknown) (no (unknown) (unknown) Pulse Oximetry (units (unknown) date) 96 95 unknown) (unknown) (no (unknown) (unknown) Pulse Oximetry (units (unknown) date) 97 96 unknown) (unknown) (no (unknown) (unknown) Pulse Oximetry (units (unknown) date) 98 98 unknown) (unknown) (no (unknown) (unknown) Pulse Rate 60 (units ( unknown) date) 12/13/22 10:16 unknown) (unknown) (no (unknown) (unknown) Pulse Rate 60 59 (units (unknown) date) L unknown) (unknown) (no (unknown) (unknown) Pulse Rate 60 (units ( unknown) date) unknown) (unknown) (no (unknown) (unknown) Pulse Rate 65 65 (units (unknown) date) unknown) (unknown) (no (unknown) (unknown) Pulse Rate 66 63 (units (unknown) date) 61 unknown) (unknown) (no (unknown) (unknown) RBC (4.0-5.2) (units ( unknown) date) X106/uL unknown) (unknown) (no (unknown) (unknown) RBC 2.92 L (units (unk nown) date) (4.0-5.2) X106/uL unknown) (unknown) (no (unknown) (unknown) RBC Morphology (units (unknown) date) Not Reportable unknown) (unknown) (no (unknown) (unknown) RBC Morphology (units (unknown) date) unknown) (unknown) (no (unknown) (unknown) RDW (11.6-14.8) (units (unknown) date) % unknown) (unknown) (no (unknown) (unknown) RDW 19.9 H (units (unk nown) date) (11.6-14.8) % unknown) (unknown) (no (unknown) (unknown) Referrals: (units (unk nown) date) unknown) (unknown) (no (unknown) (unknown) Related Data (units (u nknown) date) unknown) (unknown) (no (unknown) (unknown) Respiratory Rate (units (unknown) date) 18 12/13/22 10:16 unknown) (unknown) (no (unknown) (unknown) Respiratory Rate (units (unknown) date) 18 unknown) (unknown) (no (unknown) (unknown) Respiratory Rate (units (unknown) date) unknown) (unknown) (no (unknown) (unknown) Signed By: (units (unk nown) date) unknown) (unknown) (no (unknown) (unknown) Smoking Status: (units (unknown) date) Former smoker unknown) (unknown) (no (unknown) (unknown) Social History (units (unknown) date) (Reviewed unknown) 10/15/22 @ 18:46 by Ciara Pacheco DO) (unknown) (no (unknown) (unknown) Sodium (137-145) (units (unknown) date) mmol/L unknown) (unknown) (no (unknown) (unknown) Sodium 138 (units (unk nown) date) (137-145) mmol/L unknown) (unknown) (no (unknown) (unknown) Sodium Chloride (units (unknown) date) (Normal Saline unknown) 0.9%) 500 mls @ 1,000 mls/hr IV BOLUS ONE (unknown) (no (unknown) (unknown) Source: patient (units (unknown) date) unknown) (unknown) (no (unknown) (unknown) Stated (units (unkno wn) date) Complaint: unknown) Constipation no BM x7days (unknown) (no (unknown) (unknown) Stop: 12/13/22 (units (unknown) date) 14:39 unknown) (unknown) (no (unknown) (unknown) Stop: 12/13/22 (units (unknown) date) 15:45 unknown) (unknown) (no (unknown) (unknown) Substance Use (units ( unknown) date) Type: does not unknown) use (unknown) (no (unknown) (unknown) Temperature 97.7 (units (unknown) date) F 12/13/22 10:16 unknown) (unknown) (no (unknown) (unknown) Temperature 97.7 (units (unknown) date) F unknown) (unknown) (no (unknown) (unknown) Temperature (units (un known) date) unknown) (unknown) (no (unknown) (unknown) Time Seen by (units (u nknown) date) Provider: unknown) 12/13/22 12:32 (unknown) (no (unknown) (unknown) Total Bilirubin (units (unknown) date) (0.2-1.3) mg/dL unknown) (unknown) (no (unknown) (unknown) Total Bilirubin (units (unknown) date) 0.9 (0.2-1.3) unknown) mg/dL (unknown) (no (unknown) (unknown) Total Creatine (units (unknown) date) Kinase (30-135) unknown) U/L (unknown) (no (unknown) (unknown) Total Creatine (units (unknown) date) Kinase 150 H unknown) (30-135) U/L (unknown) (no (unknown) (unknown) Total Protein (units ( unknown) date) (6.3-8.2) g/dL unknown) (unknown) (no (unknown) (unknown) Total Protein (units ( unknown) date) 7.7 (6.3-8.2) unknown) g/dL (unknown) (no (unknown) (unknown) Troponin + CK (units ( unknown) date) Cardiac Panel unknown) Stat (unknown) (no (unknown) (unknown) Troponin I (units (unk nown) date) (0.01-0.034) unknown) ng/mL (unknown) (no (unknown) (unknown) Troponin I 0.030 (units (unknown) date) (0.01-0.034) unknown) ng/mL (unknown) (no (unknown) (unknown) Ur Culture (units (unk nown) date) Indicated? unknown) Specimen cultured (unknown) (no (unknown) (unknown) Ur Culture (units (unk nown) date) Indicated? unknown) (unknown) (no (unknown) (unknown) Ur Leukocyte (units (u nknown) date) Esterase unknown) (NEGATIVE) (unknown) (no (unknown) (unknown) Ur Leukocyte (units (u nknown) date) Esterase 1+ H unknown) (NEGATIVE) (unknown) (no (unknown) (unknown) Ur Specific (units (un known) date) [place] unknown) (1.000-1.035) (unknown) (no (unknown) (unknown) Ur Specific (units (un known) date) [place] 1.010 unknown) (1.000-1.035) (unknown) (no (unknown) (unknown) Ur Squamous (units (un known) date) Epith Cells unknown) (0-5/HPF) (unknown) (no (unknown) (unknown) Ur Squamous (units (un known) date) Epith Cells 1-5 unknown) /hpf (0-5/HPF) (unknown) (no (unknown) (unknown) Urinalysis and (units (unknown) date) Microscopic Stat unknown) (unknown) (no (unknown) (unknown) Urine Appearance (units (unknown) date) Clear unknown) (unknown) (no (unknown) (unknown) Urine Appearance (units (unknown) date) unknown) (unknown) (no (unknown) (unknown) Urine Bacteria (units (unknown) date) (None) unknown) (unknown) (no (unknown) (unknown) Urine Bacteria (units (unknown) date) Few (2-10) H unknown) (None) (unknown) (no (unknown) (unknown) Urine Bilirubin (units (unknown) date) (NEGATIVE) unknown) (unknown) (no (unknown) (unknown) Urine Bilirubin (units (unknown) date) Negative unknown) (NEGATIVE) (unknown) (no (unknown) (unknown) Urine Color (units (un known) date) Yellow unknown) (unknown) (no (unknown) (unknown) Urine Color (units (un known) date) unknown) (unknown) (no (unknown) (unknown) Urine Culture (units ( unknown) date) Stat unknown) (unknown) (no (unknown) (unknown) Urine Dip (units (unkn own) date) unknown) (unknown) (no (unknown) (unknown) Urine Glucose (units ( unknown) date) (UA) (Negative) unknown) g/dL (unknown) (no (unknown) (unknown) Urine Glucose (units ( unknown) date) (UA) Negative unknown) (Negative) g/dL (unknown) (no (unknown) (unknown) Urine Ketones (units ( unknown) date) (NEGATIVE) unknown) (unknown) (no (unknown) (unknown) Urine Ketones (units ( unknown) date) Negative unknown) (NEGATIVE) (unknown) (no (unknown) (unknown) Urine Nitrate (units ( unknown) date) (Negative) unknown) (unknown) (no (unknown) (unknown) Urine Nitrate (units ( unknown) date) Negative unknown) (Negative) (unknown) (no (unknown) (unknown) Urine Occult (units (u nknown) date) Blood (Negative) unknown) (unknown) (no (unknown) (unknown) Urine Occult (units (u nknown) date) Blood Negative unknown) (Negative) (unknown) (no (unknown) (unknown) Urine Protein (units ( unknown) date) (Negative) unknown) (unknown) (no (unknown) (unknown) Urine Protein 1+ (units (unknown) date) H (Negative) unknown) (unknown) (no (unknown) (unknown) Urine RBC (units (unkn own) date) (0-5/HPF) unknown) (unknown) (no (unknown) (unknown) Urine RBC (units (unkn own) date) 0-1/hpf (0-5/HPF) unknown) (unknown) (no (unknown) (unknown) Urine Specific (units (unknown) date) [place] 1.01 unknown) (unknown) (no (unknown) (unknown) Urine (units (unkno wn) date) Urobilinogen unknown) (0.2) E.U./dL (unknown) (no (unknown) (unknown) Urine (units (unkno wn) date) Urobilinogen 1.0 unknown) (0.2) E.U./dL (unknown) (no (unknown) (unknown) Urine WBC (units (unkn own) date) (0-5/HPF) unknown) (unknown) (no (unknown) (unknown) Urine WBC (units (unkn own) date) 1-5/hpf (0-5/HPF) unknown) (unknown) (no (unknown) (unknown) Urine pH (units (unkno wn) date) (4.5-8.0) unknown) (unknown) (no (unknown) (unknown) Urine pH 7.0 (units (u nknown) date) (4.5-8.0) unknown) (unknown) (no (unknown) (unknown) Vital Signs - 8 (units (unknown) date) hr unknown) (unknown) (no (unknown) (unknown) Vital Signs (units (un known) date) unknown) (unknown) (no (unknown) (unknown) Vital signs: (units (u nknown) date) unknown) (unknown) (no (unknown) (unknown) WBC (4.5-11.0) (units (unknown) date) X103/uL unknown) (unknown) (no (unknown) (unknown) WBC 5.3 (units (unkno wn) date) (4.5-11.0) unknown) X103/uL (unknown) (no (unknown) (unknown) XR abdomen 1V (units ( unknown) date) Stat unknown) (unknown) (no (unknown) (unknown) [Embedded Image (units (unknown) date) Not Available] unknown) (unknown) (no (unknown) (unknown) alcohol intake (units (unknown) date) frequency: unknown) holidays/special occasions only (unknown) (no (unknown) (unknown) alcohol intake: (units (unknown) date) current unknown) (unknown) (no (unknown) (unknown) allopurinol 100 (units (unknown) date) mg tablet 100 mg unknown) PO DAILY 10/15/22 10/15/22 (unknown) (no (unknown) (unknown) allopurinol 100 (units (unknown) date) mg tablet unknown) (unknown) (no (unknown) (unknown) anastrozole 1 mg (units (unknown) date) tablet 1 mg PO unknown) DAILY 10/15/22 10/15/22 (unknown) (no (unknown) (unknown) anastrozole 1 mg (units (unknown) date) tablet unknown) (unknown) (no (unknown) (unknown) aspirin 81 mg (units ( unknown) date) Capsule unknown) (unknown) (no (unknown) (unknown) aspirin 81 mg (units ( unknown) date) capsule 81 mg PO unknown) DAILY 10/15/22 10/15/22 (unknown) (no (unknown) (unknown) atorvastatin 40 (units (unknown) date) mg tablet 40 mg unknown) PO BEDTIME 10/15/22 10/15/22 (unknown) (no (unknown) (unknown) atorvastatin 40 (units (unknown) date) mg tablet unknown) (unknown) (no (unknown) (unknown) device (units (unkno wn) date) unknown) (unknown) (no (unknown) (unknown) ferrous sulfate (units (unknown) date) 325 mg (65 mg 325 unknown) mg PO DAILY 10/15/22 10/15/22 (unknown) (no (unknown) (unknown) ferrous sulfate (units (unknown) date) 325 mg (65 mg unknown) iron) Tablet (unknown) (no (unknown) (unknown) fluticasone 500 (units (unknown) date) mcg-salmeterol 50 unknown) 1 inh inhalation BID 10/15/22 10/15/22 (unknown) (no (unknown) (unknown) fluticasone (units (un known) date) propion-salmetero unknown) l [Advair Diskus] 500-50 mcg/dose blister with (unknown) (no (unknown) (unknown) gentamicin (units (unk nown) date) Allergy Verified unknown) 10/15/22 17:02 (unknown) (no (unknown) (unknown) household (units (unkn own) date) members: spouse unknown) (unknown) (no (unknown) (unknown) inhalation (units (unk nown) date) (Advair Diskus) unknown) (unknown) (no (unknown) (unknown) iron) tablet (units (u nknown) date) unknown) (unknown) (no (unknown) (unknown) levothyroxine (units ( unknown) date) 100 mcg tablet unknown) 100 mcg PO DAILY 10/15/22 10/15/22 (unknown) (no (unknown) (unknown) levothyroxine (units ( unknown) date) 100 mcg tablet unknown) (unknown) (no (unknown) (unknown) magnesium (units (unkn own) date) chloride 64 mg 64 unknown) mg PO DAILY 10/15/22 10/15/22 (unknown) (no (unknown) (unknown) magnesium (units (unkn own) date) chloride 64 mg unknown) Tablet Extended Release (unknown) (no (unknown) (unknown) mcg/dose blistr (units (unknown) date) powdr for unknown) (unknown) (no (unknown) (unknown) metoprolol (units (unk nown) date) succinate 100 mg unknown) 100 mg PO DAILY #90 tabs 10/18/22 (unknown) (no (unknown) (unknown) metoprolol (units (unk nown) date) succinate 100 mg unknown) tablet extended release 24 hr (unknown) (no (unknown) (unknown) tablet,extended (units (unknown) date) release 24 hr unknown) (unknown) (no (unknown) (unknown) tablet,extended (units (unknown) date) release unknown) (unknown) (no (unknown) (unknown) torsemide 20 mg (units (unknown) date) tablet 40 mg PO unknown) DAILY 10/15/22 10/15/22 (unknown) (no (unknown) (unknown) torsemide 20 mg (units (unknown) date) tablet unknown) Result panel 189 (unknown) (no (unknown) (unknown) (no value) (units (unk nown) date) unknown) (unknown) (no (unknown) (unknown) 12/13/22 (units (unkno wn) date) 12/13/22 12/13/22 unknown) Range/Units (unknown) (no (unknown) (unknown) 12/13/22 (units (unkno wn) date) 12/13/22 unknown) Range/Units (unknown) (no (unknown) (unknown) 12/13/22 11:27 (units (unknown) date) unknown) (unknown) (no (unknown) (unknown) 12/13/22 12:35 (units (unknown) date) unknown) (unknown) (no (unknown) (unknown) 12/13/22 13:15 (units (unknown) date) unknown) (unknown) (no (unknown) (unknown) 12/13/22 14:24 (units (unknown) date) unknown) (unknown) (no (unknown) (unknown) 12/13/22 15:35 (units (unknown) date) unknown) (unknown) (no (unknown) (unknown) 12/13/22 (units (unkno wn) date) unknown) (unknown) (no (unknown) (unknown) 1 inh INHALATION (units (unknown) date) BID unknown) (unknown) (no (unknown) (unknown) 1 mg PO DAILY (units ( unknown) date) unknown) (unknown) (no (unknown) (unknown) 100 mcg PO DAILY (units (unknown) date) unknown) (unknown) (no (unknown) (unknown) 100 mg PO DAILY (units (unknown) date) Qty: 90 0RF unknown) (unknown) (no (unknown) (unknown) 100 mg PO DAILY (units (unknown) date) unknown) (unknown) (no (unknown) (unknown) 10:16 12/13/22 (units (unknown) date) unknown) (unknown) (no (unknown) (unknown) 12:10 12/13/22 (units (unknown) date) unknown) (unknown) (no (unknown) (unknown) 12:11 12/13/22 (units (unknown) date) unknown) (unknown) (no (unknown) (unknown) 12:11 (units (unkno wn) date) unknown) (unknown) (no (unknown) (unknown) 12:30 12/13/22 (units (unknown) date) unknown) (unknown) (no (unknown) (unknown) 12:35 12:35 (units (un known) date) 12:35 unknown) (unknown) (no (unknown) (unknown) 12:35 13:15 (units (un known) date) unknown) (unknown) (no (unknown) (unknown) 13:00 (units (unkno wn) date) unknown) (unknown) (no (unknown) (unknown) 13:03 12/13/22 (units (unknown) date) unknown) (unknown) (no (unknown) (unknown) 13:30 (units (unkno wn) date) unknown) (unknown) (no (unknown) (unknown) 14:00 12/13/22 (units (unknown) date) unknown) (unknown) (no (unknown) (unknown) 14:01 12/13/22 (units (unknown) date) unknown) (unknown) (no (unknown) (unknown) 14:01 (units (unkno wn) date) unknown) (unknown) (no (unknown) (unknown) 14:30 12/13/22 (units (unknown) date) unknown) (unknown) (no (unknown) (unknown) 14:51 12/13/22 (units (unknown) date) unknown) (unknown) (no (unknown) (unknown) 14:51 (units (unkno wn) date) unknown) (unknown) (no (unknown) (unknown) 15:00 12/13/22 (units (unknown) date) unknown) (unknown) (no (unknown) (unknown) 15:01 12/13/22 (units (unknown) date) unknown) (unknown) (no (unknown) (unknown) 15:01 (units (unkno wn) date) unknown) (unknown) (no (unknown) (unknown) 15:30 12/13/22 (units (unknown) date) unknown) (unknown) (no (unknown) (unknown) 15:31 12/13/22 (units (unknown) date) unknown) (unknown) (no (unknown) (unknown) 15:31 (units (unkno wn) date) unknown) (unknown) (no (unknown) (unknown) 16:01 (units (unkno wn) date) unknown) (unknown) (no (unknown) (unknown) 3097 (units (unkno wn) date) unknown) (unknown) (no (unknown) (unknown) 325 mg PO DAILY (units (unknown) date) unknown) (unknown) (no (unknown) (unknown) 40 mg PO BEDTIME (units (unknown) date) unknown) (unknown) (no (unknown) (unknown) 40 mg PO DAILY (units (unknown) date) unknown) (unknown) (no (unknown) (unknown) 64 mg PO DAILY (units (unknown) date) unknown) (unknown) (no (unknown) (unknown) 81 mg PO DAILY (units (unknown) date) unknown) (unknown) (no (unknown) (unknown) ALT (<35) IU/L (units (unknown) date) unknown) (unknown) (no (unknown) (unknown) ALT 21 (<35) (units (u nknown) date) IU/L unknown) (unknown) (no (unknown) (unknown) AST (14-36) IU/L (units (unknown) date) unknown) (unknown) (no (unknown) (unknown) AST 42 H (14-36) (units (unknown) date) IU/L unknown) (unknown) (no (unknown) (unknown) Age/Sex: 72 / F (units (unknown) date) unknown) (unknown) (no (unknown) (unknown) Albumin (units (unkno wn) date) (3.5-5.0) g/dL unknown) (unknown) (no (unknown) (unknown) Albumin 3.8 (units (un known) date) (3.5-5.0) g/dL unknown) (unknown) (no (unknown) (unknown) Albumin/Globulin (units (unknown) date) Ratio (1.0-2.8) unknown) (unknown) (no (unknown) (unknown) Albumin/Globulin (units (unknown) date) Ratio 1.0 unknown) (1.0-2.8) (unknown) (no (unknown) (unknown) Alkaline (units (unkno wn) date) Phosphatase unknown) (38-126) U/L (unknown) (no (unknown) (unknown) Alkaline (units (unkno wn) date) Phosphatase 130 H unknown) (38-126) U/L (unknown) (no (unknown) (unknown) Allergies (units (unkn own) date) unknown) (unknown) (no (unknown) (unknown) Allergy/AdvReac (units (unknown) date) Type Severity unknown) Reaction Status Date / Time (unknown) (no (unknown) (unknown) Anisocytosis 3+ (units (unknown) date) H unknown) (unknown) (no (unknown) (unknown) Anisocytosis (units (u nknown) date) unknown) (unknown) (no (unknown) (unknown) BNP [NT-proBNP (units (unknown) date) (BNP-Adult 18+)] unknown) Stat (unknown) (no (unknown) (unknown) BUN (7-17) mg/dL (units (unknown) date) unknown) (unknown) (no (unknown) (unknown) BUN 37 H (7-17) (units (unknown) date) mg/dL unknown) (unknown) (no (unknown) (unknown) BUN/Creatinine (units (unknown) date) Ratio (6-22) unknown) (unknown) (no (unknown) (unknown) BUN/Creatinine (units (unknown) date) Ratio 15.7 (6-22) unknown) (unknown) (no (unknown) (unknown) Baso # (Auto) (units ( unknown) date) (0-100) /uL unknown) (unknown) (no (unknown) (unknown) Baso # (Auto) 0 (units (unknown) date) (0-100) /uL unknown) (unknown) (no (unknown) (unknown) Baso % (Auto) (units ( unknown) date) (0-2) % unknown) (unknown) (no (unknown) (unknown) Baso % (Auto) (units ( unknown) date) 0.6 (0-2) % unknown) (unknown) (no (unknown) (unknown) Bedside Urine (units ( unknown) date) Bilirubin - unknown) Negative (unknown) (no (unknown) (unknown) Bedside Urine (units ( unknown) date) Glucose Negative unknown) (unknown) (no (unknown) (unknown) Bedside Urine (units ( unknown) date) Ketone - Negative unknown) (unknown) (no (unknown) (unknown) Bedside Urine (units ( unknown) date) Leukocytes +/- 15 unknown) (unknown) (no (unknown) (unknown) Bedside Urine (units ( unknown) date) Nitrite - unknown) Negative (unknown) (no (unknown) (unknown) Bedside Urine (units ( unknown) date) Occult Blood - unknown) Negative (unknown) (no (unknown) (unknown) Bedside Urine (units ( unknown) date) Protein + 30 unknown) (unknown) (no (unknown) (unknown) Bedside Urine (units ( unknown) date) Urobilinogen - unknown) Negative (unknown) (no (unknown) (unknown) Bedside Urine pH (units (unknown) date) 6.5 unknown) (unknown) (no (unknown) (unknown) Blood Pressure (units (unknown) date) 160/73 H unknown) (unknown) (no (unknown) (unknown) Blood Pressure (units (unknown) date) 163/75 H unknown) (unknown) (no (unknown) (unknown) Blood Pressure (units (unknown) date) 165/87 H unknown) (unknown) (no (unknown) (unknown) Blood Pressure (units (unknown) date) 181/72 H unknown) (unknown) (no (unknown) (unknown) Blood Pressure (units (unknown) date) 181/75 H unknown) (unknown) (no (unknown) (unknown) Blood Pressure (units (unknown) date) 191/97 H 12/13/22 unknown) 10:16 (unknown) (no (unknown) (unknown) Blood Pressure (units (unknown) date) 191/97 H 168/71 H unknown) (unknown) (no (unknown) (unknown) Blood Pressure (units (unknown) date) unknown) (unknown) (no (unknown) (unknown) CBC Auto Diff (units ( unknown) date) [Complete Blood unknown) Count AUTO DIFF] Stat (unknown) (no (unknown) (unknown) CK-MB (CK-2) (units (u nknown) date) (<2.37) ng/mL unknown) (unknown) (no (unknown) (unknown) CK-MB (CK-2) (units (u nknown) date) 0.85 (<2.37) unknown) ng/mL (unknown) (no (unknown) (unknown) CK-MB (CK-2) Rel (units (unknown) date) Index (1.5-5.0) % unknown) (unknown) (no (unknown) (unknown) CK-MB (CK-2) Rel (units (unknown) date) Index 0.6 L unknown) (1.5-5.0) % (unknown) (no (unknown) (unknown) CMP (units (unkno wn) date) [Comprehensive unknown) Metabolic Panel] Stat (unknown) (no (unknown) (unknown) CT abdomen (units (unk nown) date) pelvis wo con unknown) Stat (unknown) (no (unknown) (unknown) Calcium (units (unkno wn) date) (8.4-10.2) mg/dL unknown) (unknown) (no (unknown) (unknown) Calcium 8.5 (units (un known) date) (8.4-10.2) mg/dL unknown) (unknown) (no (unknown) (unknown) Carbon Dioxide (units (unknown) date) (22-32) mmol/L unknown) (unknown) (no (unknown) (unknown) Carbon Dioxide (units (unknown) date) 25 (22-32) mmol/L unknown) (unknown) (no (unknown) (unknown) Chest [XR chest (units (unknown) date) 1V] Stat unknown) (unknown) (no (unknown) (unknown) Chief Complaint: (units (unknown) date) Back Pain/Injury unknown) (unknown) (no (unknown) (unknown) Chloride (units (unkno wn) date) (98-107) mmol/L unknown) (unknown) (no (unknown) (unknown) Chloride 103 (units (u nknown) date) (98-107) mmol/L unknown) (unknown) (no (unknown) (unknown) Course (units (unkno wn) date) unknown) (unknown) (no (unknown) (unknown) Creatinine (units (unk nown) date) (0.52-1.04) mg/dL unknown) (unknown) (no (unknown) (unknown) Creatinine 2.35 (units (unknown) date) H (0.52-1.04) unknown) mg/dL (unknown) (no (unknown) (unknown) : 1950 (units (unknown) date) Acct:[id number] unknown) (unknown) (no (unknown) (unknown) Date of Service: (units (unknown) date) 12/13/22 unknown) (unknown) (no (unknown) (unknown) Departure (units (unkn own) date) unknown) (unknown) (no (unknown) (unknown) Discharge Plan (units (unknown) date) unknown) (unknown) (no (unknown) (unknown) Discontinued (units (u nknown) date) Medications unknown) (unknown) (no (unknown) (unknown) Documented By: (units (unknown) date) KB unknown) (unknown) (no (unknown) (unknown) ED Orders (units (unkn own) date) unknown) (unknown) (no (unknown) (unknown) EKG-12 Lead Stat (units (unknown) date) unknown) (unknown) (no (unknown) (unknown) ER Physician: (units ( unknown) date) Olga Talbert unknown) P.A-C (unknown) (no (unknown) (unknown) Emergency Report (units (unknown) date) unknown) (unknown) (no (unknown) (unknown) Eos # (Auto) (units (u nknown) date) (0-450) /uL unknown) (unknown) (no (unknown) (unknown) Eos # (Auto) 100 (units (unknown) date) (0-450) /uL unknown) (unknown) (no (unknown) (unknown) Eos % (Auto) (units (u nknown) date) (2-4) % unknown) (unknown) (no (unknown) (unknown) Eos % (Auto) 2.3 (units (unknown) date) (2-4) % unknown) (unknown) (no (unknown) (unknown) Esterase (units (unkno wn) date) unknown) (unknown) (no (unknown) (unknown) Estimated GFR (units ( unknown) date) (>60) mL/min unknown) (unknown) (no (unknown) (unknown) Estimated GFR 21 (units (unknown) date) L (>60) mL/min unknown) (unknown) (no (unknown) (unknown) Exam (units (unkno wn) date) unknown) (unknown) (no (unknown) (unknown) Furosemide 60 (units ( unknown) date) mg/ Sodium unknown) (Chloride) 56 mls @ 112 mls/hr IV NOW ONE (unknown) (no (unknown) (unknown) General (units (unkno wn) date) unknown) (unknown) (no (unknown) (unknown) Globulin (units (unkno wn) date) (1.7-4.1) g/dL unknown) (unknown) (no (unknown) (unknown) Globulin 3.9 (units (u nknown) date) (1.7-4.1) g/dL unknown) (unknown) (no (unknown) (unknown) Glucose (80-110) (units (unknown) date) mg/dL unknown) (unknown) (no (unknown) (unknown) Glucose 132 H (units ( unknown) date) (80-110) mg/dL unknown) (unknown) (no (unknown) (unknown) HPI - Back (units (unk nown) date) Pain/Injury unknown) (unknown) (no (unknown) (unknown) Hct (36-46) % (units ( unknown) date) unknown) (unknown) (no (unknown) (unknown) Hct 29.9 L (units (unk nown) date) (36-46) % unknown) (unknown) (no (unknown) (unknown) Hgb (12.0-16.0) (units (unknown) date) g/dL unknown) (unknown) (no (unknown) (unknown) Hgb 9.6 L (units (unkn own) date) (12.0-16.0) g/dL unknown) (unknown) (no (unknown) (unknown) Home Medications (units (unknown) date) unknown) (unknown) (no (unknown) (unknown) Initial Vital (units ( unknown) date) Signs unknown) (unknown) (no (unknown) (unknown) Initial Vital (units ( unknown) date) Signs: unknown) (unknown) (no (unknown) (unknown) [facility] (units (unknown) date) [address] [place] [address] unknown) [place] [address] (unknown) (no (unknown) (unknown) Lab Data (units (unkno wn) date) unknown) (unknown) (no (unknown) (unknown) Lab Results (units (un known) date) unknown) (unknown) (no (unknown) (unknown) Labs: (units (unkno wn) date) unknown) (unknown) (no (unknown) (unknown) Last Admin: (units (un known) date) 12/13/22 14:15 unknown) Dose: 1,000 mls/hr (unknown) (no (unknown) (unknown) Last Admin: (units (un known) date) 12/13/22 16:10 unknown) Dose: 112 mls/hr (unknown) (no (unknown) (unknown) Lipase (23-300) (units (unknown) date) U/L unknown) (unknown) (no (unknown) (unknown) Lipase 201 (units (unk nown) date) (23-300) U/L unknown) (unknown) (no (unknown) (unknown) Lipase Stat (units (un known) date) unknown) (unknown) (no (unknown) (unknown) Aramis Godfrey, (units (unknown) date) [Primary Care unknown) Provider] (unknown) (no (unknown) (unknown) Lymph # (Auto) (units (unknown) date) (3596-1156) /uL unknown) (unknown) (no (unknown) (unknown) Lymph # (Auto) (units (unknown) date) 1000 L unknown) (3948-2733) /uL (unknown) (no (unknown) (unknown) Lymph % (Auto) (units (unknown) date) (25-40) % unknown) (unknown) (no (unknown) (unknown) Lymph % (Auto) (units (unknown) date) 19.0 L (25-40) % unknown) (unknown) (no (unknown) (unknown) MCH (26-34) PG (units (unknown) date) unknown) (unknown) (no (unknown) (unknown) MCH 32.9 (26-34) (units (unknown) date) PG unknown) (unknown) (no (unknown) (unknown) MCHC (30-36) % (units (unknown) date) unknown) (unknown) (no (unknown) (unknown) MCHC 32.1 (units (unkn own) date) (30-36) % unknown) (unknown) (no (unknown) (unknown) MCV (80-100) fL (units (unknown) date) unknown) (unknown) (no (unknown) (unknown) MCV 102.6 H (units (un known) date) (80-100) fL unknown) (unknown) (no (unknown) (unknown) MDM - Back (units (unk nown) date) Pain/Injury unknown) (unknown) (no (unknown) (unknown) Macrocytosis 1+ (units (unknown) date) H unknown) (unknown) (no (unknown) (unknown) Macrocytosis (units (u nknown) date) unknown) (unknown) (no (unknown) (unknown) Medication (units (unk nown) date) Instructions unknown) Recorded Confirmed (unknown) (no (unknown) (unknown) Medication (units (unk nown) date) Instructions unknown) Recorded (unknown) (no (unknown) (unknown) Stone # (Auto) (units ( unknown) date) (0-900) /uL unknown) (unknown) (no (unknown) (unknown) Stone # (Auto) (units ( unknown) date) 800 (0-900) /uL unknown) (unknown) (no (unknown) (unknown) Stone % (Auto) (units ( unknown) date) (3-14) % unknown) (unknown) (no (unknown) (unknown) Stone % (Auto) (units ( unknown) date) 16.0 H (3-14) % unknown) (unknown) (no (unknown) (unknown) NT-Pro-B (units (unkno wn) date) Natriuret Pep unknown) (<125) pg/mL (unknown) (no (unknown) (unknown) NT-Pro-B (units (unkno wn) date) Natriuret Pep unknown) 4890 H (<125) pg/mL (unknown) (no (unknown) (unknown) Neut # (Auto) (units ( unknown) date) (4955-0271) /uL unknown) (unknown) (no (unknown) (unknown) Neut # (Auto) (units ( unknown) date) 3300 (3477-0276) unknown) /uL (unknown) (no (unknown) (unknown) Neut % (Auto) (units ( unknown) date) (50-75) % unknown) (unknown) (no (unknown) (unknown) Neut % (Auto) (units ( unknown) date) 62.1 (50-75) % unknown) (unknown) (no (unknown) (unknown) No Action (units (unkn own) date) unknown) (unknown) (no (unknown) (unknown) Ordered: (units (unkno wn) date) unknown) (unknown) (no (unknown) (unknown) Orders (units (unkno wn) date) unknown) (unknown) (no (unknown) (unknown) Oxygen Delivery (units (unknown) date) Method 12/13/22 unknown) 10:16 (unknown) (no (unknown) (unknown) Oxygen Delivery (units (unknown) date) Method Room Air unknown) (unknown) (no (unknown) (unknown) Oxygen Delivery (units (unknown) date) Method unknown) (unknown) (no (unknown) (unknown) Patient History (units (unknown) date) unknown) (unknown) (no (unknown) (unknown) Patient: (units (unkno wn) date) Gómez Walls MR#: unknown) [id number] (unknown) (no (unknown) (unknown) Plt Count (units (unkn own) date) (150-400) X103/uL unknown) (unknown) (no (unknown) (unknown) Plt Count 86 L (units (unknown) date) (150-400) X103/uL unknown) (unknown) (no (unknown) (unknown) Potassium (units (unkn own) date) (3.4-5.1) mmol/L unknown) (unknown) (no (unknown) (unknown) Potassium 4.1 (units ( unknown) date) (3.4-5.1) mmol/L unknown) (unknown) (no (unknown) (unknown) Prescriptions: (units (unknown) date) unknown) (unknown) (no (unknown) (unknown) Previous Rx's (units ( unknown) date) unknown) (unknown) (no (unknown) (unknown) Pulse Oximetry (units (unknown) date) 94 98 98 unknown) (unknown) (no (unknown) (unknown) Pulse Oximetry (units (unknown) date) 95 unknown) (unknown) (no (unknown) (unknown) Pulse Oximetry (units (unknown) date) 96 12/13/22 10:16 unknown) (unknown) (no (unknown) (unknown) Pulse Oximetry (units (unknown) date) 96 95 unknown) (unknown) (no (unknown) (unknown) Pulse Oximetry (units (unknown) date) 97 96 unknown) (unknown) (no (unknown) (unknown) Pulse Oximetry (units (unknown) date) 97 97 unknown) (unknown) (no (unknown) (unknown) Pulse Oximetry (units (unknown) date) 97 98 unknown) (unknown) (no (unknown) (unknown) Pulse Oximetry (units (unknown) date) 98 98 unknown) (unknown) (no (unknown) (unknown) Pulse Oximetry (units (unknown) date) 98 99 unknown) (unknown) (no (unknown) (unknown) Pulse Rate 60 (units ( unknown) date) 12/13/22 10:16 unknown) (unknown) (no (unknown) (unknown) Pulse Rate 60 59 (units (unknown) date) L unknown) (unknown) (no (unknown) (unknown) Pulse Rate 60 (units ( unknown) date) unknown) (unknown) (no (unknown) (unknown) Pulse Rate 63 63 (units (unknown) date) unknown) (unknown) (no (unknown) (unknown) Pulse Rate 63 64 (units (unknown) date) unknown) (unknown) (no (unknown) (unknown) Pulse Rate 65 65 (units (unknown) date) unknown) (unknown) (no (unknown) (unknown) Pulse Rate 66 63 (units (unknown) date) 61 unknown) (unknown) (no (unknown) (unknown) Pulse Rate 73 (units ( unknown) date) unknown) (unknown) (no (unknown) (unknown) RBC (4.0-5.2) (units ( unknown) date) X106/uL unknown) (unknown) (no (unknown) (unknown) RBC 2.92 L (units (unk nown) date) (4.0-5.2) X106/uL unknown) (unknown) (no (unknown) (unknown) RBC Morphology (units (unknown) date) Not Reportable unknown) (unknown) (no (unknown) (unknown) RBC Morphology (units (unknown) date) unknown) (unknown) (no (unknown) (unknown) RDW (11.6-14.8) (units (unknown) date) % unknown) (unknown) (no (unknown) (unknown) RDW 19.9 H (units (unk nown) date) (11.6-14.8) % unknown) (unknown) (no (unknown) (unknown) Referrals: (units (unk nown) date) unknown) (unknown) (no (unknown) (unknown) Related Data (units (u nknown) date) unknown) (unknown) (no (unknown) (unknown) Respiratory Rate (units (unknown) date) 18 12/13/22 10:16 unknown) (unknown) (no (unknown) (unknown) Respiratory Rate (units (unknown) date) 18 unknown) (unknown) (no (unknown) (unknown) Respiratory Rate (units (unknown) date) 20 unknown) (unknown) (no (unknown) (unknown) Respiratory Rate (units (unknown) date) unknown) (unknown) (no (unknown) (unknown) Signed By: (units (unk nown) date) unknown) (unknown) (no (unknown) (unknown) Smoking Status: (units (unknown) date) Former smoker unknown) (unknown) (no (unknown) (unknown) Social History (units (unknown) date) (Reviewed unknown) 10/15/22 @ 18:46 by Ciara Pacheco DO) (unknown) (no (unknown) (unknown) Sodium (137-145) (units (unknown) date) mmol/L unknown) (unknown) (no (unknown) (unknown) Sodium 138 (units (unk nown) date) (137-145) mmol/L unknown) (unknown) (no (unknown) (unknown) Sodium Chloride (units (unknown) date) (Normal Saline unknown) 0.9%) 500 mls @ 1,000 mls/hr IV BOLUS ONE (unknown) (no (unknown) (unknown) Source: patient (units (unknown) date) unknown) (unknown) (no (unknown) (unknown) Stated (units (unkno wn) date) Complaint: unknown) Constipation no BM x7days (unknown) (no (unknown) (unknown) Stop: 12/13/22 (units (unknown) date) 14:39 unknown) (unknown) (no (unknown) (unknown) Stop: 12/13/22 (units (unknown) date) 15:45 unknown) (unknown) (no (unknown) (unknown) Substance Use (units ( unknown) date) Type: does not unknown) use (unknown) (no (unknown) (unknown) Temperature 97.7 (units (unknown) date) F 12/13/22 10:16 unknown) (unknown) (no (unknown) (unknown) Temperature 97.7 (units (unknown) date) F unknown) (unknown) (no (unknown) (unknown) Temperature (units (un known) date) unknown) (unknown) (no (unknown) (unknown) Time Seen by (units (u nknown) date) Provider: unknown) 12/13/22 12:32 (unknown) (no (unknown) (unknown) Total Bilirubin (units (unknown) date) (0.2-1.3) mg/dL unknown) (unknown) (no (unknown) (unknown) Total Bilirubin (units (unknown) date) 0.9 (0.2-1.3) unknown) mg/dL (unknown) (no (unknown) (unknown) Total Creatine (units (unknown) date) Kinase (30-135) unknown) U/L (unknown) (no (unknown) (unknown) Total Creatine (units (unknown) date) Kinase 150 H unknown) (30-135) U/L (unknown) (no (unknown) (unknown) Total Protein (units ( unknown) date) (6.3-8.2) g/dL unknown) (unknown) (no (unknown) (unknown) Total Protein (units ( unknown) date) 7.7 (6.3-8.2) unknown) g/dL (unknown) (no (unknown) (unknown) Troponin + CK (units ( unknown) date) Cardiac Panel unknown) Stat (unknown) (no (unknown) (unknown) Troponin I (units (unk nown) date) (0.01-0.034) unknown) ng/mL (unknown) (no (unknown) (unknown) Troponin I 0.030 (units (unknown) date) (0.01-0.034) unknown) ng/mL (unknown) (no (unknown) (unknown) Ur Culture (units (unk nown) date) Indicated? unknown) Specimen cultured (unknown) (no (unknown) (unknown) Ur Culture (units (unk nown) date) Indicated? unknown) (unknown) (no (unknown) (unknown) Ur Leukocyte (units (u nknown) date) Esterase unknown) (NEGATIVE) (unknown) (no (unknown) (unknown) Ur Leukocyte (units (u nknown) date) Esterase 1+ H unknown) (NEGATIVE) (unknown) (no (unknown) (unknown) Ur Specific (units (un known) date) [place] unknown) (1.000-1.035) (unknown) (no (unknown) (unknown) Ur Specific (units (un known) date) [place] 1.010 unknown) (1.000-1.035) (unknown) (no (unknown) (unknown) Ur Squamous (units (un known) date) Epith Cells unknown) (0-5/HPF) (unknown) (no (unknown) (unknown) Ur Squamous (units (un known) date) Epith Cells 1-5 unknown) /hpf (0-5/HPF) (unknown) (no (unknown) (unknown) Urinalysis and (units (unknown) date) Microscopic Stat unknown) (unknown) (no (unknown) (unknown) Urine Appearance (units (unknown) date) Clear unknown) (unknown) (no (unknown) (unknown) Urine Appearance (units (unknown) date) unknown) (unknown) (no (unknown) (unknown) Urine Bacteria (units (unknown) date) (None) unknown) (unknown) (no (unknown) (unknown) Urine Bacteria (units (unknown) date) Few (2-10) H unknown) (None) (unknown) (no (unknown) (unknown) Urine Bilirubin (units (unknown) date) (NEGATIVE) unknown) (unknown) (no (unknown) (unknown) Urine Bilirubin (units (unknown) date) Negative unknown) (NEGATIVE) (unknown) (no (unknown) (unknown) Urine Color (units (un known) date) Yellow unknown) (unknown) (no (unknown) (unknown) Urine Color (units (un known) date) unknown) (unknown) (no (unknown) (unknown) Urine Culture (units ( unknown) date) Stat unknown) (unknown) (no (unknown) (unknown) Urine Dip (units (unkn own) date) unknown) (unknown) (no (unknown) (unknown) Urine Glucose (units ( unknown) date) (UA) (Negative) unknown) g/dL (unknown) (no (unknown) (unknown) Urine Glucose (units ( unknown) date) (UA) Negative unknown) (Negative) g/dL (unknown) (no (unknown) (unknown) Urine Ketones (units ( unknown) date) (NEGATIVE) unknown) (unknown) (no (unknown) (unknown) Urine Ketones (units ( unknown) date) Negative unknown) (NEGATIVE) (unknown) (no (unknown) (unknown) Urine Nitrate (units ( unknown) date) (Negative) unknown) (unknown) (no (unknown) (unknown) Urine Nitrate (units ( unknown) date) Negative unknown) (Negative) (unknown) (no (unknown) (unknown) Urine Occult (units (u nknown) date) Blood (Negative) unknown) (unknown) (no (unknown) (unknown) Urine Occult (units (u nknown) date) Blood Negative unknown) (Negative) (unknown) (no (unknown) (unknown) Urine Protein (units ( unknown) date) (Negative) unknown) (unknown) (no (unknown) (unknown) Urine Protein 1+ (units (unknown) date) H (Negative) unknown) (unknown) (no (unknown) (unknown) Urine RBC (units (unkn own) date) (0-5/HPF) unknown) (unknown) (no (unknown) (unknown) Urine RBC (units (unkn own) date) 0-1/hpf (0-5/HPF) unknown) (unknown) (no (unknown) (unknown) Urine Specific (units (unknown) date) [place] 1.01 unknown) (unknown) (no (unknown) (unknown) Urine (units (unkno wn) date) Urobilinogen unknown) (0.2) E.U./dL (unknown) (no (unknown) (unknown) Urine (units (unkno wn) date) Urobilinogen 1.0 unknown) (0.2) E.U./dL (unknown) (no (unknown) (unknown) Urine WBC (units (unkn own) date) (0-5/HPF) unknown) (unknown) (no (unknown) (unknown) Urine WBC (units (unkn own) date) 1-5/hpf (0-5/HPF) unknown) (unknown) (no (unknown) (unknown) Urine pH (units (unkno wn) date) (4.5-8.0) unknown) (unknown) (no (unknown) (unknown) Urine pH 7.0 (units (u nknown) date) (4.5-8.0) unknown) (unknown) (no (unknown) (unknown) Vital Signs - 8 (units (unknown) date) hr unknown) (unknown) (no (unknown) (unknown) Vital Signs (units (un known) date) unknown) (unknown) (no (unknown) (unknown) Vital signs: (units (u nknown) date) unknown) (unknown) (no (unknown) (unknown) WBC (4.5-11.0) (units (unknown) date) X103/uL unknown) (unknown) (no (unknown) (unknown) WBC 5.3 (units (unkno wn) date) (4.5-11.0) unknown) X103/uL (unknown) (no (unknown) (unknown) XR abdomen 1V (units ( unknown) date) Stat unknown) (unknown) (no (unknown) (unknown) [Embedded Image (units (unknown) date) Not Available] unknown) (unknown) (no (unknown) (unknown) alcohol intake (units (unknown) date) frequency: unknown) holidays/special occasions only (unknown) (no (unknown) (unknown) alcohol intake: (units (unknown) date) current unknown) (unknown) (no (unknown) (unknown) allopurinol 100 (units (unknown) date) mg tablet 100 mg unknown) PO DAILY 10/15/22 10/15/22 (unknown) (no (unknown) (unknown) allopurinol 100 (units (unknown) date) mg tablet unknown) (unknown) (no (unknown) (unknown) anastrozole 1 mg (units (unknown) date) tablet 1 mg PO unknown) DAILY 10/15/22 10/15/22 (unknown) (no (unknown) (unknown) anastrozole 1 mg (units (unknown) date) tablet unknown) (unknown) (no (unknown) (unknown) aspirin 81 mg (units ( unknown) date) Capsule unknown) (unknown) (no (unknown) (unknown) aspirin 81 mg (units ( unknown) date) capsule 81 mg PO unknown) DAILY 10/15/22 10/15/22 (unknown) (no (unknown) (unknown) atorvastatin 40 (units (unknown) date) mg tablet 40 mg unknown) PO BEDTIME 10/15/22 10/15/22 (unknown) (no (unknown) (unknown) atorvastatin 40 (units (unknown) date) mg tablet unknown) (unknown) (no (unknown) (unknown) device (units (unkno wn) date) unknown) (unknown) (no (unknown) (unknown) ferrous sulfate (units (unknown) date) 325 mg (65 mg 325 unknown) mg PO DAILY 10/15/22 10/15/22 (unknown) (no (unknown) (unknown) ferrous sulfate (units (unknown) date) 325 mg (65 mg unknown) iron) Tablet (unknown) (no (unknown) (unknown) fluticasone 500 (units (unknown) date) mcg-salmeterol 50 unknown) 1 inh inhalation BID 10/15/22 10/15/22 (unknown) (no (unknown) (unknown) fluticasone (units (un known) date) propion-salmetero unknown) l [Advair Diskus] 500-50 mcg/dose blister with (unknown) (no (unknown) (unknown) gentamicin (units (unk nown) date) Allergy Verified unknown) 10/15/22 17:02 (unknown) (no (unknown) (unknown) household (units (unkn own) date) members: spouse unknown) (unknown) (no (unknown) (unknown) inhalation (units (unk nown) date) (Advair Diskus) unknown) (unknown) (no (unknown) (unknown) iron) tablet (units (u nknown) date) unknown) (unknown) (no (unknown) (unknown) levothyroxine (units ( unknown) date) 100 mcg tablet unknown) 100 mcg PO DAILY 10/15/22 10/15/22 (unknown) (no (unknown) (unknown) levothyroxine (units ( unknown) date) 100 mcg tablet unknown) (unknown) (no (unknown) (unknown) magnesium (units (unkn own) date) chloride 64 mg 64 unknown) mg PO DAILY 10/15/22 10/15/22 (unknown) (no (unknown) (unknown) magnesium (units (unkn own) date) chloride 64 mg unknown) Tablet Extended Release (unknown) (no (unknown) (unknown) mcg/dose blistr (units (unknown) date) powdr for unknown) (unknown) (no (unknown) (unknown) metoprolol (units (unk nown) date) succinate 100 mg unknown) 100 mg PO DAILY #90 tabs 10/18/22 (unknown) (no (unknown) (unknown) metoprolol (units (unk nown) date) succinate 100 mg unknown) tablet extended release 24 hr (unknown) (no (unknown) (unknown) tablet,extended (units (unknown) date) release 24 hr unknown) (unknown) (no (unknown) (unknown) tablet,extended (units (unknown) date) release unknown) (unknown) (no (unknown) (unknown) torsemide 20 mg (units (unknown) date) tablet 40 mg PO unknown) DAILY 10/15/22 10/15/22 (unknown) (no (unknown) (unknown) torsemide 20 mg (units (unknown) date) tablet unknown) Result panel 190 (unknown) (no (unknown) (unknown) (no value) (units (unk nown) date) unknown) (unknown) (no (unknown) (unknown) *Please continue (units (unknown) date) to take your unknown) regular medications as directed. (unknown) (no (unknown) (unknown) *Please follow (units (unknown) date) up with your unknown) primary care provider in as soon as possible call (unknown) (no (unknown) (unknown) *Return to (units (unk nown) date) Emergency unknown) Department if you should have any new, worsening or (unknown) (no (unknown) (unknown) *What to do: (units (u nknown) date) unknown) (unknown) (no (unknown) (unknown) *You have been (units (unknown) date) diagnosed with unknown) Exacerbation of congestive heart failure which (unknown) (no (unknown) (unknown) 12/13/22 (units (unkno wn) date) 12/13/22 12/13/22 unknown) Range/Units (unknown) (no (unknown) (unknown) 12/13/22 (units (unkno wn) date) 12/13/22 unknown) Range/Units (unknown) (no (unknown) (unknown) 12/13/22 12:35 (units (unknown) date) unknown) (unknown) (no (unknown) (unknown) 12/13/22 13:15 (units (unknown) date) unknown) (unknown) (no (unknown) (unknown) 12/13/22 14:24 (units (unknown) date) unknown) (unknown) (no (unknown) (unknown) 12/13/22 15:35 (units (unknown) date) unknown) (unknown) (no (unknown) (unknown) 12/13/22 (units (unkno wn) date) unknown) (unknown) (no (unknown) (unknown) 1 inh INHALATION (units (unknown) date) BID unknown) (unknown) (no (unknown) (unknown) 1 mg PO DAILY (units ( unknown) date) unknown) (unknown) (no (unknown) (unknown) 100 mcg PO DAILY (units (unknown) date) unknown) (unknown) (no (unknown) (unknown) 100 mg PO DAILY (units (unknown) date) Qty: 90 0RF unknown) (unknown) (no (unknown) (unknown) 100 mg PO DAILY (units (unknown) date) unknown) (unknown) (no (unknown) (unknown) 101 F, shaking (units (unknown) date) chills, worsening unknown) pain, persistent vomiting or other bothersome (unknown) (no (unknown) (unknown) 12:35 12:35 (units (un known) date) 12:35 unknown) (unknown) (no (unknown) (unknown) 12:35 13:15 (units (un known) date) unknown) (unknown) (no (unknown) (unknown) 14:30 12/13/22 (units (unknown) date) unknown) (unknown) (no (unknown) (unknown) 14:51 12/13/22 (units (unknown) date) unknown) (unknown) (no (unknown) (unknown) 14:51 (units (unkno wn) date) unknown) (unknown) (no (unknown) (unknown) 15:00 12/13/22 (units (unknown) date) unknown) (unknown) (no (unknown) (unknown) 15:01 12/13/22 (units (unknown) date) unknown) (unknown) (no (unknown) (unknown) 15:01 (units (unkno wn) date) unknown) (unknown) (no (unknown) (unknown) 15:30 12/13/22 (units (unknown) date) unknown) (unknown) (no (unknown) (unknown) 15:31 12/13/22 (units (unknown) date) unknown) (unknown) (no (unknown) (unknown) 15:31 (units (unkno wn) date) unknown) (unknown) (no (unknown) (unknown) 16:01 12/13/22 (units (unknown) date) unknown) (unknown) (no (unknown) (unknown) 16:30 12/13/22 (units (unknown) date) unknown) (unknown) (no (unknown) (unknown) 17:18 (units (unkno wn) date) unknown) (unknown) (no (unknown) (unknown) 17:19 12/13/22 (units (unknown) date) unknown) (unknown) (no (unknown) (unknown) 17:25 (units (unkno wn) date) unknown) (unknown) (no (unknown) (unknown) 3097 (units (unkno wn) date) unknown) (unknown) (no (unknown) (unknown) 325 mg PO DAILY (units (unknown) date) unknown) (unknown) (no (unknown) (unknown) 40 mg PO BEDTIME (units (unknown) date) unknown) (unknown) (no (unknown) (unknown) 40 mg PO DAILY (units (unknown) date) unknown) (unknown) (no (unknown) (unknown) 64 mg PO DAILY (units (unknown) date) unknown) (unknown) (no (unknown) (unknown) 81 mg PO DAILY (units (unknown) date) unknown) (unknown) (no (unknown) (unknown) ALT (<35) IU/L (units (unknown) date) unknown) (unknown) (no (unknown) (unknown) ALT 21 (<35) (units (u nknown) date) IU/L unknown) (unknown) (no (unknown) (unknown) AST (14-36) IU/L (units (unknown) date) unknown) (unknown) (no (unknown) (unknown) AST 42 H (14-36) (units (unknown) date) IU/L unknown) (unknown) (no (unknown) (unknown) Activity (units (unkno wn) date) Restrictions/Juan unknown) tional Instructions: (unknown) (no (unknown) (unknown) Admin: 12/13/22 (units (unknown) date) 14:15 Dose: 1,000 unknown) mls/hr (unknown) (no (unknown) (unknown) Admin: 12/13/22 (units (unknown) date) 16:10 Dose: 112 unknown) mls/hr (unknown) (no (unknown) (unknown) Age/Sex: 72 / F (units (unknown) date) unknown) (unknown) (no (unknown) (unknown) Albumin (units (unkno wn) date) (3.5-5.0) g/dL unknown) (unknown) (no (unknown) (unknown) Albumin 3.8 (units (un known) date) (3.5-5.0) g/dL unknown) (unknown) (no (unknown) (unknown) Albumin/Globulin (units (unknown) date) Ratio (1.0-2.8) unknown) (unknown) (no (unknown) (unknown) Albumin/Globulin (units (unknown) date) Ratio 1.0 unknown) (1.0-2.8) (unknown) (no (unknown) (unknown) Alkaline (units (unkno wn) date) Phosphatase unknown) (38-126) U/L (unknown) (no (unknown) (unknown) Alkaline (units (unkno wn) date) Phosphatase 130 H unknown) (38-126) U/L (unknown) (no (unknown) (unknown) Allergies (units (unkn own) date) unknown) (unknown) (no (unknown) (unknown) Allergy/AdvReac (units (unknown) date) Type Severity unknown) Reaction Status Date / Time (unknown) (no (unknown) (unknown) Anemia (units (unkno wn) date) associated with unknown) chronic renal failure, Chronic shortness of breath, (unknown) (no (unknown) (unknown) Anisocytosis 3+ (units (unknown) date) H unknown) (unknown) (no (unknown) (unknown) Anisocytosis (units (u nknown) date) unknown) (unknown) (no (unknown) (unknown) BUN (7-17) mg/dL (units (unknown) date) unknown) (unknown) (no (unknown) (unknown) BUN 37 H (7-17) (units (unknown) date) mg/dL unknown) (unknown) (no (unknown) (unknown) BUN/Creatinine (units (unknown) date) Ratio (6-22) unknown) (unknown) (no (unknown) (unknown) BUN/Creatinine (units (unknown) date) Ratio 15.7 (6-22) unknown) (unknown) (no (unknown) (unknown) Baso # (Auto) (units ( unknown) date) (0-100) /uL unknown) (unknown) (no (unknown) (unknown) Baso # (Auto) 0 (units (unknown) date) (0-100) /uL unknown) (unknown) (no (unknown) (unknown) Baso % (Auto) (units ( unknown) date) (0-2) % unknown) (unknown) (no (unknown) (unknown) Baso % (Auto) (units ( unknown) date) 0.6 (0-2) % unknown) (unknown) (no (unknown) (unknown) Bedside Urine (units ( unknown) date) Bilirubin - unknown) Negative (unknown) (no (unknown) (unknown) Bedside Urine (units ( unknown) date) Glucose Negative unknown) (unknown) (no (unknown) (unknown) Bedside Urine (units ( unknown) date) Ketone - Negative unknown) (unknown) (no (unknown) (unknown) Bedside Urine (units ( unknown) date) Leukocytes +/- 15 unknown) (unknown) (no (unknown) (unknown) Bedside Urine (units ( unknown) date) Nitrite - unknown) Negative (unknown) (no (unknown) (unknown) Bedside Urine (units ( unknown) date) Occult Blood - unknown) Negative (unknown) (no (unknown) (unknown) Bedside Urine (units ( unknown) date) Protein + 30 unknown) (unknown) (no (unknown) (unknown) Bedside Urine (units ( unknown) date) Urobilinogen - unknown) Negative (unknown) (no (unknown) (unknown) Bedside Urine pH (units (unknown) date) 6.5 unknown) (unknown) (no (unknown) (unknown) Blood Pressure (units (unknown) date) 143/72 H unknown) (unknown) (no (unknown) (unknown) Blood Pressure (units (unknown) date) 163/75 H unknown) (unknown) (no (unknown) (unknown) Blood Pressure (units (unknown) date) 181/72 H unknown) (unknown) (no (unknown) (unknown) Blood Pressure (units (unknown) date) 181/75 H unknown) (unknown) (no (unknown) (unknown) Blood Pressure (units (unknown) date) 191/97 H 12/13/22 unknown) 10:16 (unknown) (no (unknown) (unknown) Blood Pressure (units (unknown) date) unknown) (unknown) (no (unknown) (unknown) CHF exacerbation (units (unknown) date) unknown) (unknown) (no (unknown) (unknown) CK-MB (CK-2) (units (u nknown) date) (<2.37) ng/mL unknown) (unknown) (no (unknown) (unknown) CK-MB (CK-2) (units (u nknown) date) 0.85 (<2.37) unknown) ng/mL (unknown) (no (unknown) (unknown) CK-MB (CK-2) Rel (units (unknown) date) Index (1.5-5.0) % unknown) (unknown) (no (unknown) (unknown) CK-MB (CK-2) Rel (units (unknown) date) Index 0.6 L unknown) (1.5-5.0) % (unknown) (no (unknown) (unknown) CT abdomen (units (unk n) date) pelvis wo con unknown) Stat (unknown) (no (unknown) (unknown) Calcium (units (unkno wn) date) (8.4-10.2) mg/dL unknown) (unknown) (no (unknown) (unknown) Calcium 8.5 (units (un known) date) (8.4-10.2) mg/dL unknown) (unknown) (no (unknown) (unknown) Carbon Dioxide (units (unknown) date) (22-32) mmol/L unknown) (unknown) (no (unknown) (unknown) Carbon Dioxide (units (unknown) date) 25 (22-32) mmol/L unknown) (unknown) (no (unknown) (unknown) Chest [XR chest (units (unknown) date) 1V] Stat unknown) (unknown) (no (unknown) (unknown) Chief Complaint: (units (unknown) date) Back Pain/Injury unknown) (unknown) (no (unknown) (unknown) Chloride (units (unkno wn) date) (98-107) mmol/L unknown) (unknown) (no (unknown) (unknown) Chloride 103 (units (u nknown) date) (98-107) mmol/L unknown) (unknown) (no (unknown) (unknown) Clinical (units (unkno wn) date) Impression: unknown) (unknown) (no (unknown) (unknown) Constipation, (units ( unknown) date) unspecified unknown) (unknown) (no (unknown) (unknown) Course (units (unkno wn) date) unknown) (unknown) (no (unknown) (unknown) Creatinine (units (unk n) date) (0.52-1.04) mg/dL unknown) (unknown) (no (unknown) (unknown) Creatinine 2.35 (units (unknown) date) H (0.52-1.04) unknown) mg/dL (unknown) (no (unknown) (unknown) : 1950 (units (unknown) date) Acct:[id number] unknown) (unknown) (no (unknown) (unknown) Date of Service: (units (unknown) date) 12/13/22 unknown) (unknown) (no (unknown) (unknown) Departure (units (unkn own) date) unknown) (unknown) (no (unknown) (unknown) Discharge Plan (units (unknown) date) unknown) (unknown) (no (unknown) (unknown) Discontinued (units (u nknown) date) Medications unknown) (unknown) (no (unknown) (unknown) Documented By: (units (unknown) date) KB unknown) (unknown) (no (unknown) (unknown) Documented By: (units (unknown) date) RLS unknown) (unknown) (no (unknown) (unknown) ED Orders (units (unkn own) date) unknown) (unknown) (no (unknown) (unknown) EKG-12 Lead Stat (units (unknown) date) unknown) (unknown) (no (unknown) (unknown) ER Physician: (units ( unknown) date) Olga Talbert unknown) P.A-C (unknown) (no (unknown) (unknown) Emergency Report (units (unknown) date) unknown) (unknown) (no (unknown) (unknown) Eos # (Auto) (units (u nknown) date) (0-450) /uL unknown) (unknown) (no (unknown) (unknown) Eos # (Auto) 100 (units (unknown) date) (0-450) /uL unknown) (unknown) (no (unknown) (unknown) Eos % (Auto) (units (u nknown) date) (2-4) % unknown) (unknown) (no (unknown) (unknown) Eos % (Auto) 2.3 (units (unknown) date) (2-4) % unknown) (unknown) (no (unknown) (unknown) Esterase (units (unkno wn) date) unknown) (unknown) (no (unknown) (unknown) Estimated GFR (units ( unknown) date) (>60) mL/min unknown) (unknown) (no (unknown) (unknown) Estimated GFR 21 (units (unknown) date) L (>60) mL/min unknown) (unknown) (no (unknown) (unknown) Exam (units (unkno wn) date) unknown) (unknown) (no (unknown) (unknown) Furosemide 60 (units ( unknown) date) mg/ Sodium unknown) (Chloride) 56 mls @ 112 mls/hr IV NOW ONE (unknown) (no (unknown) (unknown) General (units (unkno wn) date) unknown) (unknown) (no (unknown) (unknown) Globulin (units (unkno wn) date) (1.7-4.1) g/dL unknown) (unknown) (no (unknown) (unknown) Globulin 3.9 (units (u nknown) date) (1.7-4.1) g/dL unknown) (unknown) (no (unknown) (unknown) Glucose (80-110) (units (unknown) date) mg/dL unknown) (unknown) (no (unknown) (unknown) Glucose 132 H (units ( unknown) date) (80-110) mg/dL unknown) (unknown) (no (unknown) (unknown) HPI - Back (units (unk nown) date) Pain/Injury unknown) (unknown) (no (unknown) (unknown) Hct (36-46) % (units ( unknown) date) unknown) (unknown) (no (unknown) (unknown) Hct 29.9 L (units (unk nown) date) (36-46) % unknown) (unknown) (no (unknown) (unknown) He also reported (units (unknown) date) constipation. unknown) Imaging studies confirmed congestive heart (unknown) (no (unknown) (unknown) Heart failure (units ( unknown) date) type: unspecified unknown) Qualified Code(s): I50.9 - Heart failure, (unknown) (no (unknown) (unknown) Hgb (12.0-16.0) (units (unknown) date) g/dL unknown) (unknown) (no (unknown) (unknown) Hgb 9.6 L (units (unkn own) date) (12.0-16.0) g/dL unknown) (unknown) (no (unknown) (unknown) Home Medications (units (unknown) date) unknown) (unknown) (no (unknown) (unknown) Initial Vital (units ( unknown) date) Signs unknown) (unknown) (no (unknown) (unknown) Initial Vital (units ( unknown) date) Signs: unknown) (unknown) (no (unknown) (unknown) Instructions: DI (units (unknown) date) for Heart Failure unknown) (unknown) (no (unknown) (unknown) [facility] (units (unknown) date) [address] unknown) [place] [id number] (unknown) (no (unknown) (unknown) Lab Data (units (unkno wn) date) unknown) (unknown) (no (unknown) (unknown) Lab Results (units (un known) date) unknown) (unknown) (no (unknown) (unknown) Labs: (units (unkno wn) date) unknown) (unknown) (no (unknown) (unknown) Last Infusion: (units (unknown) date) 12/13/22 15:38 unknown) Dose: 0 mls/hr (unknown) (no (unknown) (unknown) Last Infusion: (units (unknown) date) 12/13/22 17:04 unknown) Dose: 0 mls/hr (unknown) (no (unknown) (unknown) Lipase (23-300) (units (unknown) date) U/L unknown) (unknown) (no (unknown) (unknown) Lipase 201 (units (unk nown) date) (23-300) U/L unknown) (unknown) (no (unknown) (unknown) Aramis Godfrey, (units (unknown) date) [Primary Care unknown) Provider] (unknown) (no (unknown) (unknown) Lymph # (Auto) (units (unknown) date) ([id number]) /uL unknown) (unknown) (no (unknown) (unknown) Lymph # (Auto) (units (unknown) date) 1000 L unknown) ([id number]) /uL (unknown) (no (unknown) (unknown) Lymph % (Auto) (units (unknown) date) (25-40) % unknown) (unknown) (no (unknown) (unknown) Lymph % (Auto) (units (unknown) date) 19.0 L (25-40) % unknown) (unknown) (no (unknown) (unknown) M[facility] (26-34) PG (units (unknown) date) unknown) (unknown) (no (unknown) (unknown) MCH 32.9 (26-34) (units (unknown) date) PG unknown) (unknown) (no (unknown) (unknown) MCHC (30-36) % (units (unknown) date) unknown) (unknown) (no (unknown) (unknown) MCHC 32.1 (units (unkn own) date) (30-36) % unknown) (unknown) (no (unknown) (unknown) MCV (80-100) fL (units (unknown) date) unknown) (unknown) (no (unknown) (unknown) MCV 102.6 H (units (un known) date) (80-100) fL unknown) (unknown) (no (unknown) (unknown) MDM - Back (units (unk nown) date) Pain/Injury unknown) (unknown) (no (unknown) (unknown) Macrocytosis 1+ (units (unknown) date) H unknown) (unknown) (no (unknown) (unknown) Macrocytosis (units (u nknown) date) unknown) (unknown) (no (unknown) (unknown) Medication (units (unk nown) date) Instructions unknown) Recorded Confirmed (unknown) (no (unknown) (unknown) Medication (units (unk nown) date) Instructions unknown) Recorded (unknown) (no (unknown) (unknown) Stone # (Auto) (units ( unknown) date) (0-900) /uL unknown) (unknown) (no (unknown) (unknown) Stone # (Auto) (units ( unknown) date) 800 (0-900) /uL unknown) (unknown) (no (unknown) (unknown) Stone % (Auto) (units ( unknown) date) (3-14) % unknown) (unknown) (no (unknown) (unknown) Stone % (Auto) (units ( unknown) date) 16.0 H (3-14) % unknown) (unknown) (no (unknown) (unknown) NT-Pro-B (units (unkno wn) date) Natriuret Pep unknown) (<125) pg/mL (unknown) (no (unknown) (unknown) NT-Pro-B (units (unkno wn) date) Natriuret Pep unknown) 4890 H (<125) pg/mL (unknown) (no (unknown) (unknown) Neut # (Auto) (units ( unknown) date) (1837-0346) /uL unknown) (unknown) (no (unknown) (unknown) Neut # (Auto) (units ( unknown) date) 3300 (6883-4578) unknown) /uL (unknown) (no (unknown) (unknown) Neut % (Auto) (units ( unknown) date) (50-75) % unknown) (unknown) (no (unknown) (unknown) Neut % (Auto) (units ( unknown) date) 62.1 (50-75) % unknown) (unknown) (no (unknown) (unknown) No Action (units (unkn own) date) unknown) (unknown) (no (unknown) (unknown) No new (units (unkno wn) date) medications given unknown) (unknown) (no (unknown) (unknown) Ordered: (units (unkno wn) date) unknown) (unknown) (no (unknown) (unknown) Orders (units (unkno wn) date) unknown) (unknown) (no (unknown) (unknown) Oxygen Delivery (units (unknown) date) Method 12/13/22 unknown) 10:16 (unknown) (no (unknown) (unknown) Patient (units (unkno wn) date) Disposition: Home unknown) (unknown) (no (unknown) (unknown) Patient History (units (unknown) date) unknown) (unknown) (no (unknown) (unknown) Patient: (units (unkno wn) date) Gómez Walls MR#: unknown) [id number] (unknown) (no (unknown) (unknown) Plt Count (units (unkn own) date) (150-400) X103/uL unknown) (unknown) (no (unknown) (unknown) Plt Count 86 L (units (unknown) date) (150-400) X103/uL unknown) (unknown) (no (unknown) (unknown) Potassium (units (unkn own) date) (3.4-5.1) mmol/L unknown) (unknown) (no (unknown) (unknown) Potassium 4.1 (units ( unknown) date) (3.4-5.1) mmol/L unknown) (unknown) (no (unknown) (unknown) Prescriptions: (units (unknown) date) unknown) (unknown) (no (unknown) (unknown) Previous Rx's (units ( unknown) date) unknown) (unknown) (no (unknown) (unknown) Pulse Oximetry (units (unknown) date) 95 97 92 unknown) (unknown) (no (unknown) (unknown) Pulse Oximetry (units (unknown) date) 96 12/13/22 10:16 unknown) (unknown) (no (unknown) (unknown) Pulse Oximetry (units (unknown) date) 97 97 unknown) (unknown) (no (unknown) (unknown) Pulse Oximetry (units (unknown) date) 97 98 unknown) (unknown) (no (unknown) (unknown) Pulse Oximetry (units (unknown) date) 98 99 unknown) (unknown) (no (unknown) (unknown) Pulse Rate 60 (units ( unknown) date) 12/13/22 10:16 unknown) (unknown) (no (unknown) (unknown) Pulse Rate 63 63 (units (unknown) date) unknown) (unknown) (no (unknown) (unknown) Pulse Rate 63 64 (units (unknown) date) unknown) (unknown) (no (unknown) (unknown) Pulse Rate 65 65 (units (unknown) date) unknown) (unknown) (no (unknown) (unknown) Pulse Rate 69 (units ( unknown) date) unknown) (unknown) (no (unknown) (unknown) Pulse Rate 73 65 (units (unknown) date) 72 unknown) (unknown) (no (unknown) (unknown) Qualifiers: (units (un known) date) unknown) (unknown) (no (unknown) (unknown) RBC (4.0-5.2) (units ( unknown) date) X106/uL unknown) (unknown) (no (unknown) (unknown) RBC 2.92 L (units (unk nown) date) (4.0-5.2) X106/uL unknown) (unknown) (no (unknown) (unknown) RBC Morphology (units (unknown) date) Not Reportable unknown) (unknown) (no (unknown) (unknown) RBC Morphology (units (unknown) date) unknown) (unknown) (no (unknown) (unknown) RDW (11.6-14.8) (units (unknown) date) % unknown) (unknown) (no (unknown) (unknown) RDW 19.9 H (units (unk nown) date) (11.6-14.8) % unknown) (unknown) (no (unknown) (unknown) Referrals: (units (unk nown) date) unknown) (unknown) (no (unknown) (unknown) Related Data (units (u nknown) date) unknown) (unknown) (no (unknown) (unknown) Respiratory Rate (units (unknown) date) 16 unknown) (unknown) (no (unknown) (unknown) Respiratory Rate (units (unknown) date) 18 12/13/22 10:16 unknown) (unknown) (no (unknown) (unknown) Respiratory Rate (units (unknown) date) 20 unknown) (unknown) (no (unknown) (unknown) Respiratory Rate (units (unknown) date) unknown) (unknown) (no (unknown) (unknown) Signed By: (units (unk nown) date) unknown) (unknown) (no (unknown) (unknown) Smoking Status: (units (unknown) date) Former smoker unknown) (unknown) (no (unknown) (unknown) Social History (units (unknown) date) (Reviewed unknown) 10/15/22 @ 18:46 by Ciara Pacheco DO) (unknown) (no (unknown) (unknown) Sodium (137-145) (units (unknown) date) mmol/L unknown) (unknown) (no (unknown) (unknown) Sodium 138 (units (unk nown) date) (137-145) mmol/L unknown) (unknown) (no (unknown) (unknown) Sodium Chloride (units (unknown) date) (Normal Saline unknown) 0.9%) 500 mls @ 1,000 mls/hr IV BOLUS ONE (unknown) (no (unknown) (unknown) Source: patient (units (unknown) date) unknown) (unknown) (no (unknown) (unknown) Stand Alone (units (un known) date) Forms: Patient unknown) Portal/API (unknown) (no (unknown) (unknown) Stated (units (unkno wn) date) Complaint: unknown) Constipation no BM x7days (unknown) (no (unknown) (unknown) Stop: 12/13/22 (units (unknown) date) 14:39 unknown) (unknown) (no (unknown) (unknown) Stop: 12/13/22 (units (unknown) date) 15:45 unknown) (unknown) (no (unknown) (unknown) Substance Use (units ( unknown) date) Type: does not unknown) use (unknown) (no (unknown) (unknown) Temperature 97.7 (units (unknown) date) F 12/13/22 10:16 unknown) (unknown) (no (unknown) (unknown) Time Seen by (units (u nknown) date) Provider: unknown) 12/13/22 12:32 (unknown) (no (unknown) (unknown) Total Bilirubin (units (unknown) date) (0.2-1.3) mg/dL unknown) (unknown) (no (unknown) (unknown) Total Bilirubin (units (unknown) date) 0.9 (0.2-1.3) unknown) mg/dL (unknown) (no (unknown) (unknown) Total Creatine (units (unknown) date) Kinase (30-135) unknown) U/L (unknown) (no (unknown) (unknown) Total Creatine (units (unknown) date) Kinase 150 H unknown) (30-135) U/L (unknown) (no (unknown) (unknown) Total Protein (units ( unknown) date) (6.3-8.2) g/dL unknown) (unknown) (no (unknown) (unknown) Total Protein (units ( unknown) date) 7.7 (6.3-8.2) unknown) g/dL (unknown) (no (unknown) (unknown) Troponin I (units (unk nown) date) (0.01-0.034) unknown) ng/mL (unknown) (no (unknown) (unknown) Troponin I 0.030 (units (unknown) date) (0.01-0.034) unknown) ng/mL (unknown) (no (unknown) (unknown) Ur Culture (units (unk nown) date) Indicated? unknown) Specimen cultured (unknown) (no (unknown) (unknown) Ur Culture (units (unk nown) date) Indicated? unknown) (unknown) (no (unknown) (unknown) Ur Leukocyte (units (u nknown) date) Esterase unknown) (NEGATIVE) (unknown) (no (unknown) (unknown) Ur Leukocyte (units (u nknown) date) Esterase 1+ H unknown) (NEGATIVE) (unknown) (no (unknown) (unknown) Ur Specific (units (un known) date) [place] unknown) (1.000-1.035) (unknown) (no (unknown) (unknown) Ur Specific (units (un known) date) [place] 1.010 unknown) (1.000-1.035) (unknown) (no (unknown) (unknown) Ur Squamous (units (un known) date) Epith Cells unknown) (0-5/HPF) (unknown) (no (unknown) (unknown) Ur Squamous (units (un known) date) Epith Cells 1-5 unknown) /hpf (0-5/HPF) (unknown) (no (unknown) (unknown) Urinalysis and (units (unknown) date) Microscopic Stat unknown) (unknown) (no (unknown) (unknown) Urine Appearance (units (unknown) date) Clear unknown) (unknown) (no (unknown) (unknown) Urine Appearance (units (unknown) date) unknown) (unknown) (no (unknown) (unknown) Urine Bacteria (units (unknown) date) (None) unknown) (unknown) (no (unknown) (unknown) Urine Bacteria (units (unknown) date) Few (2-10) H unknown) (None) (unknown) (no (unknown) (unknown) Urine Bilirubin (units (unknown) date) (NEGATIVE) unknown) (unknown) (no (unknown) (unknown) Urine Bilirubin (units (unknown) date) Negative unknown) (NEGATIVE) (unknown) (no (unknown) (unknown) Urine Color (units (un known) date) Yellow unknown) (unknown) (no (unknown) (unknown) Urine Color (units (un known) date) unknown) (unknown) (no (unknown) (unknown) Urine Culture (units ( unknown) date) Stat unknown) (unknown) (no (unknown) (unknown) Urine Dip (units (unkn own) date) unknown) (unknown) (no (unknown) (unknown) Urine Glucose (units ( unknown) date) (UA) (Negative) unknown) g/dL (unknown) (no (unknown) (unknown) Urine Glucose (units ( unknown) date) (UA) Negative unknown) (Negative) g/dL (unknown) (no (unknown) (unknown) Urine Ketones (units ( unknown) date) (NEGATIVE) unknown) (unknown) (no (unknown) (unknown) Urine Ketones (units ( unknown) date) Negative unknown) (NEGATIVE) (unknown) (no (unknown) (unknown) Urine Nitrate (units ( unknown) date) (Negative) unknown) (unknown) (no (unknown) (unknown) Urine Nitrate (units ( unknown) date) Negative unknown) (Negative) (unknown) (no (unknown) (unknown) Urine Occult (units (u nknown) date) Blood (Negative) unknown) (unknown) (no (unknown) (unknown) Urine Occult (units (u nknown) date) Blood Negative unknown) (Negative) (unknown) (no (unknown) (unknown) Urine Protein (units ( unknown) date) (Negative) unknown) (unknown) (no (unknown) (unknown) Urine Protein 1+ (units (unknown) date) H (Negative) unknown) (unknown) (no (unknown) (unknown) Urine RBC (units (unkn own) date) (0-5/HPF) unknown) (unknown) (no (unknown) (unknown) Urine RBC (units (unkn own) date) 0-1/hpf (0-5/HPF) unknown) (unknown) (no (unknown) (unknown) Urine Specific (units (unknown) date) [place] 1.01 unknown) (unknown) (no (unknown) (unknown) Urine (units (unkno wn) date) Urobilinogen unknown) (0.2) E.U./dL (unknown) (no (unknown) (unknown) Urine (units (unkno wn) date) Urobilinogen 1.0 unknown) (0.2) E.U./dL (unknown) (no (unknown) (unknown) Urine WBC (units (unkn own) date) (0-5/HPF) unknown) (unknown) (no (unknown) (unknown) Urine WBC (units (unkn own) date) 1-5/hpf (0-5/HPF) unknown) (unknown) (no (unknown) (unknown) Urine pH (units (unkno wn) date) (4.5-8.0) unknown) (unknown) (no (unknown) (unknown) Urine pH 7.0 (units (u nknown) date) (4.5-8.0) unknown) (unknown) (no (unknown) (unknown) Vital Signs - 8 (units (unknown) date) hr unknown) (unknown) (no (unknown) (unknown) Vital Signs (units (un known) date) unknown) (unknown) (no (unknown) (unknown) Vital signs: (units (u nknown) date) unknown) (unknown) (no (unknown) (unknown) WBC (4.5-11.0) (units (unknown) date) X103/uL unknown) (unknown) (no (unknown) (unknown) WBC 5.3 (units (unkno wn) date) (4.5-11.0) unknown) X103/uL (unknown) (no (unknown) (unknown) [Embedded Image (units (unknown) date) Not Available] unknown) (unknown) (no (unknown) (unknown) alcohol intake (units (unknown) date) frequency: unknown) holidays/special occasions only (unknown) (no (unknown) (unknown) alcohol intake: (units (unknown) date) current unknown) (unknown) (no (unknown) (unknown) allopurinol 100 (units (unknown) date) mg tablet 100 mg unknown) PO DAILY 10/15/22 10/15/22 (unknown) (no (unknown) (unknown) allopurinol 100 (units (unknown) date) mg tablet unknown) (unknown) (no (unknown) (unknown) anastrozole 1 mg (units (unknown) date) tablet 1 mg PO unknown) DAILY 10/15/22 10/15/22 (unknown) (no (unknown) (unknown) anastrozole 1 mg (units (unknown) date) tablet unknown) (unknown) (no (unknown) (unknown) and then (units (unkno wn) date) continue with unknown) your usual dose 40 mg daily unless it would be changed (unknown) (no (unknown) (unknown) aspirin 81 mg (units ( unknown) date) Capsule unknown) (unknown) (no (unknown) (unknown) aspirin 81 mg (units ( unknown) date) capsule 81 mg PO unknown) DAILY 10/15/22 10/15/22 (unknown) (no (unknown) (unknown) atorvastatin 40 (units (unknown) date) mg tablet 40 mg unknown) PO BEDTIME 10/15/22 10/15/22 (unknown) (no (unknown) (unknown) atorvastatin 40 (units (unknown) date) mg tablet unknown) (unknown) (no (unknown) (unknown) by your (units (unkno wn) date) hand bulldozer or unknown) primary care provider (unknown) (no (unknown) (unknown) concerning (units (unk nown) date) symptoms, such as unknown) Worsening shortness of breath,fever greater than (unknown) (no (unknown) (unknown) device (units (unkno wn) date) unknown) (unknown) (no (unknown) (unknown) failure, no (units (un known) date) acute unknown) intra-abdominal findings. (unknown) (no (unknown) (unknown) ferrous sulfate (units (unknown) date) 325 mg (65 mg 325 unknown) mg PO DAILY 10/15/22 10/15/22 (unknown) (no (unknown) (unknown) ferrous sulfate (units (unknown) date) 325 mg (65 mg unknown) iron) Tablet (unknown) (no (unknown) (unknown) fluticasone 500 (units (unknown) date) mcg-salmeterol 50 unknown) 1 inh inhalation BID 10/15/22 10/15/22 (unknown) (no (unknown) (unknown) fluticasone (units (un known) date) propion-salmetero unknown) l [Advair Diskus] 500-50 mcg/dose blister with (unknown) (no (unknown) (unknown) for an (units (unkno wn) date) appointment. Let unknown) them know you were seen in the Emergency Department and (unknown) (no (unknown) (unknown) gentamicin (units (unk nown) date) Allergy Verified unknown) 10/15/22 17:02 (unknown) (no (unknown) (unknown) household (units (unkn own) date) members: spouse unknown) (unknown) (no (unknown) (unknown) however for next (units (unknown) date) 2 days please unknown) increase the dose of the torsemide to 40 (unknown) (no (unknown) (unknown) if constipation (units (unknown) date) continues to be a unknown) problem, try stool softeners, occasional (unknown) (no (unknown) (unknown) in turn can (units (un known) date) trigger worsening unknown) shortness of breath and dyspnea on exertion as (unknown) (no (unknown) (unknown) inhalation (units (unk nown) date) (Advair Diskus) unknown) (unknown) (no (unknown) (unknown) iron) tablet (units (u nknown) date) unknown) (unknown) (no (unknown) (unknown) levothyroxine (units ( unknown) date) 100 mcg tablet unknown) 100 mcg PO DAILY 10/15/22 10/15/22 (unknown) (no (unknown) (unknown) levothyroxine (units ( unknown) date) 100 mcg tablet unknown) (unknown) (no (unknown) (unknown) magnesium (units (unkn own) date) chloride 64 mg 64 unknown) mg PO DAILY 10/15/22 10/15/22 (unknown) (no (unknown) (unknown) magnesium (units (unkn own) date) chloride 64 mg unknown) Tablet Extended Release (unknown) (no (unknown) (unknown) mcg/dose blistr (units (unknown) date) powdr for unknown) (unknown) (no (unknown) (unknown) metoprolol (units (unk nown) date) succinate 100 mg unknown) 100 mg PO DAILY #90 tabs 10/18/22 (unknown) (no (unknown) (unknown) metoprolol (units (unk nown) date) succinate 100 mg unknown) tablet extended release 24 hr (unknown) (no (unknown) (unknown) mg twice daily (units (unknown) date) unknown) (unknown) (no (unknown) (unknown) record of (units (unkn own) date) today's note if unknown) your PCP is in our system (unknown) (no (unknown) (unknown) senna laxative. (units (unknown) date) unknown) (unknown) (no (unknown) (unknown) symptoms (units (unkno wn) date) unknown) (unknown) (no (unknown) (unknown) tablet,extended (units (unknown) date) release 24 hr unknown) (unknown) (no (unknown) (unknown) tablet,extended (units (unknown) date) release unknown) (unknown) (no (unknown) (unknown) that we ask that (units (unknown) date) you be seen in unknown) follow up. We will electronically transmit a (unknown) (no (unknown) (unknown) torsemide 20 mg (units (unknown) date) tablet 40 mg PO unknown) DAILY 10/15/22 10/15/22 (unknown) (no (unknown) (unknown) torsemide 20 mg (units (unknown) date) tablet unknown) (unknown) (no (unknown) (unknown) unspecified (units (un known) date) unknown) (unknown) (no (unknown) (unknown) well as anemia, (units (unknown) date) which also could unknown) be a culprit of your symptoms. Result panel 191 (unknown) (no (unknown) (unknown) (no value) (units (unk nown) date) unknown) (unknown) (no (unknown) (unknown) *Please continue (units (unknown) date) to take your unknown) regular medications as directed. (unknown) (no (unknown) (unknown) *Please follow up (units (unknown) date) with your primary unknown) care provider in as soon as possible call (unknown) (no (unknown) (unknown) *Return to (units (unk nown) date) Emergency unknown) Department if you should have any new, worsening or (unknown) (no (unknown) (unknown) *What to do: (units (u nknown) date) unknown) (unknown) (no (unknown) (unknown) *You have been (units (unknown) date) diagnosed with unknown) Exacerbation of congestive heart failure which (unknown) (no (unknown) (unknown) 12/13/22 12/13/22 (units (unknown) date) 12/13/22 unknown) Range/Units (unknown) (no (unknown) (unknown) 12/13/22 12/13/22 (units (unknown) date) Range/Units unknown) (unknown) (no (unknown) (unknown) 12/13/22 12:35 (units (unknown) date) unknown) (unknown) (no (unknown) (unknown) 12/13/22 13:15 (units (unknown) date) unknown) (unknown) (no (unknown) (unknown) 12/13/22 14:24 (units (unknown) date) unknown) (unknown) (no (unknown) (unknown) 12/13/22 15:35 (units (unknown) date) unknown) (unknown) (no (unknown) (unknown) 12/13/22 (units (unkno wn) date) unknown) (unknown) (no (unknown) (unknown) 1 inh INHALATION (units (unknown) date) BID unknown) (unknown) (no (unknown) (unknown) 1 mg PO DAILY (units ( unknown) date) unknown) (unknown) (no (unknown) (unknown) 100 mcg PO DAILY (units (unknown) date) unknown) (unknown) (no (unknown) (unknown) 100 mg PO DAILY (units (unknown) date) Qty: 90 0RF unknown) (unknown) (no (unknown) (unknown) 100 mg PO DAILY (units (unknown) date) unknown) (unknown) (no (unknown) (unknown) 101 F, shaking (units (unknown) date) chills, worsening unknown) pain, persistent vomiting or other bothersome (unknown) (no (unknown) (unknown) 12 point review (units (unknown) date) of systems is unknown) negative except for those stated above (unknown) (no (unknown) (unknown) 12:35 12:35 12:35 (units (unknown) date) unknown) (unknown) (no (unknown) (unknown) 12:35 13:15 (units (un known) date) unknown) (unknown) (no (unknown) (unknown) 14:30 12/13/22 (units (unknown) date) unknown) (unknown) (no (unknown) (unknown) 14:51 12/13/22 (units (unknown) date) unknown) (unknown) (no (unknown) (unknown) 14:51 (units (unkno wn) date) unknown) (unknown) (no (unknown) (unknown) 15:00 12/13/22 (units (unknown) date) unknown) (unknown) (no (unknown) (unknown) 15:01 12/13/22 (units (unknown) date) unknown) (unknown) (no (unknown) (unknown) 15:01 (units (unkno wn) date) unknown) (unknown) (no (unknown) (unknown) 15:30 12/13/22 (units (unknown) date) unknown) (unknown) (no (unknown) (unknown) 15:31 12/13/22 (units (unknown) date) unknown) (unknown) (no (unknown) (unknown) 15:31 (units (unkno wn) date) unknown) (unknown) (no (unknown) (unknown) 16:01 12/13/22 (units (unknown) date) unknown) (unknown) (no (unknown) (unknown) 16:30 12/13/22 (units (unknown) date) unknown) (unknown) (no (unknown) (unknown) 17:18 (units (unkno wn) date) unknown) (unknown) (no (unknown) (unknown) 17:19 12/13/22 (units (unknown) date) unknown) (unknown) (no (unknown) (unknown) 17:25 (units (unkno wn) date) unknown) (unknown) (no (unknown) (unknown) 2018 ), she (units (un known) date) follows routinely unknown) with her oncologist, also cardiac history (unknown) (no (unknown) (unknown) 3097 (units (unkno wn) date) unknown) (unknown) (no (unknown) (unknown) 325 mg PO DAILY (units (unknown) date) unknown) (unknown) (no (unknown) (unknown) 40 mg PO BEDTIME (units (unknown) date) unknown) (unknown) (no (unknown) (unknown) 40 mg PO DAILY (units (unknown) date) unknown) (unknown) (no (unknown) (unknown) 64 mg PO DAILY (units (unknown) date) unknown) (unknown) (no (unknown) (unknown) 81 mg PO DAILY (units (unknown) date) unknown) (unknown) (no (unknown) (unknown) ALT (<35) IU/L (units (unknown) date) unknown) (unknown) (no (unknown) (unknown) ALT 21 (<35) IU/L (units (unknown) date) unknown) (unknown) (no (unknown) (unknown) AST (14-36) IU/L (units (unknown) date) unknown) (unknown) (no (unknown) (unknown) AST 42 H (14-36) (units (unknown) date) IU/L unknown) (unknown) (no (unknown) (unknown) Activity (units (unkno wn) date) Restrictions/Addit unknown) ional Instructions: (unknown) (no (unknown) (unknown) Additionally (units (u nknown) date) patient is aware unknown) of being anemic for some time, takes iron. She (unknown) (no (unknown) (unknown) Admin: 12/13/22 (units (unknown) date) 14:15 Dose: 1,000 unknown) mls/hr (unknown) (no (unknown) (unknown) Admin: 12/13/22 (units (unknown) date) 16:10 Dose: 112 unknown) mls/hr (unknown) (no (unknown) (unknown) Age/Sex: 72 / F (units (unknown) date) unknown) (unknown) (no (unknown) (unknown) Albumin (3.5-5.0) (units (unknown) date) g/dL unknown) (unknown) (no (unknown) (unknown) Albumin 3.8 (units (un known) date) (3.5-5.0) g/dL unknown) (unknown) (no (unknown) (unknown) Albumin/Globulin (units (unknown) date) Ratio (1.0-2.8) unknown) (unknown) (no (unknown) (unknown) Albumin/Globulin (units (unknown) date) Ratio 1.0 unknown) (1.0-2.8) (unknown) (no (unknown) (unknown) Alkaline (units (unkno wn) date) Phosphatase unknown) (38-126) U/L (unknown) (no (unknown) (unknown) Alkaline (units (unkno wn) date) Phosphatase 130 H unknown) (38-126) U/L (unknown) (no (unknown) (unknown) Allergies (units (unkn own) date) unknown) (unknown) (no (unknown) (unknown) Allergy/AdvReac (units (unknown) date) Type Severity unknown) Reaction Status Date / Time (unknown) (no (unknown) (unknown) 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, Chronic shortness of breath, (unknown) (no (unknown) (unknown) Anisocytosis 3+ H (units (unknown) date) unknown) (unknown) (no (unknown) (unknown) Anisocytosis (units (u nknown) date) unknown) (unknown) (no (unknown) (unknown) BUN (7-17) mg/dL (units (unknown) date) unknown) (unknown) (no (unknown) (unknown) BUN 37 H (7-17) (units (unknown) date) mg/dL unknown) (unknown) (no (unknown) (unknown) BUN/Creatinine (units (unknown) date) Ratio (6-22) unknown) (unknown) (no (unknown) (unknown) BUN/Creatinine (units (unknown) date) Ratio 15.7 (6-22) unknown) (unknown) (no (unknown) (unknown) Baso # (Auto) (units ( unknown) date) (0-100) /uL unknown) (unknown) (no (unknown) (unknown) Baso # (Auto) 0 (units (unknown) date) (0-100) /uL unknown) (unknown) (no (unknown) (unknown) Baso % (Auto) (units ( unknown) date) (0-2) % unknown) (unknown) (no (unknown) (unknown) Baso % (Auto) 0.6 (units (unknown) date) (0-2) % unknown) (unknown) (no (unknown) (unknown) Bedside Urine (units ( unknown) date) Bilirubin - unknown) Negative (unknown) (no (unknown) (unknown) Bedside Urine (units ( unknown) date) Glucose Negative unknown) (unknown) (no (unknown) (unknown) Bedside Urine (units ( unknown) date) Ketone - Negative unknown) (unknown) (no (unknown) (unknown) Bedside Urine (units ( unknown) date) Leukocytes +/- 15 unknown) (unknown) (no (unknown) (unknown) Bedside Urine (units ( unknown) date) Nitrite - Negative unknown) (unknown) (no (unknown) (unknown) Bedside Urine (units ( unknown) date) Occult Blood - unknown) Negative (unknown) (no (unknown) (unknown) Bedside Urine (units ( unknown) date) Protein + 30 unknown) (unknown) (no (unknown) (unknown) Bedside Urine (units ( unknown) date) Urobilinogen - unknown) Negative (unknown) (no (unknown) (unknown) Bedside Urine pH (units (unknown) date) 6.5 unknown) (unknown) (no (unknown) (unknown) Blood Pressure (units (unknown) date) 143/72 H unknown) (unknown) (no (unknown) (unknown) Blood Pressure (units (unknown) date) 163/75 H unknown) (unknown) (no (unknown) (unknown) Blood Pressure (units (unknown) date) 181/72 H unknown) (unknown) (no (unknown) (unknown) Blood Pressure (units (unknown) date) 181/75 H unknown) (unknown) (no (unknown) (unknown) Blood Pressure (units (unknown) date) 191/97 H 12/13/22 unknown) 10:16 (unknown) (no (unknown) (unknown) Blood Pressure (units (unknown) date) unknown) (unknown) (no (unknown) (unknown) CARDIOVASCULAR: (units (unknown) date) Denies chest pain, unknown) palpitations, orthopnea, edema, (unknown) (no (unknown) (unknown) CHF exacerbation (units (unknown) date) unknown) (unknown) (no (unknown) (unknown) CK-MB (CK-2) (units (u nknown) date) (<2.37) ng/mL unknown) (unknown) (no (unknown) (unknown) CK-MB (CK-2) 0.85 (units (unknown) date) (<2.37) ng/mL unknown) (unknown) (no (unknown) (unknown) CK-MB (CK-2) Rel (units (unknown) date) Index (1.5-5.0) % unknown) (unknown) (no (unknown) (unknown) CK-MB (CK-2) Rel (units (unknown) date) Index 0.6 L unknown) (1.5-5.0) % (unknown) (no (unknown) (unknown) CT abdomen pelvis (units (unknown) date) wo con Stat unknown) (unknown) (no (unknown) (unknown) Calcium (units (unkno wn) date) (8.4-10.2) mg/dL unknown) (unknown) (no (unknown) (unknown) Calcium 8.5 (units (un known) date) (8.4-10.2) mg/dL unknown) (unknown) (no (unknown) (unknown) Carbon Dioxide (units (unknown) date) (22-32) mmol/L unknown) (unknown) (no (unknown) (unknown) Carbon Dioxide 25 (units (unknown) date) (22-32) mmol/L unknown) (unknown) (no (unknown) (unknown) Chest [XR chest (units (unknown) date) 1V] Stat unknown) (unknown) (no (unknown) (unknown) Chief Complaint: (units (unknown) date) Back Pain/Injury unknown) (unknown) (no (unknown) (unknown) Chloride (98-107) (units (unknown) date) mmol/L unknown) (unknown) (no (unknown) (unknown) Chloride 103 (units (u nknown) date) (98-107) mmol/L unknown) (unknown) (no (unknown) (unknown) Clinical (units (unkno wn) date) Impression: unknown) (unknown) (no (unknown) (unknown) Constipation, (units ( unknown) date) unspecified unknown) (unknown) (no (unknown) (unknown) Course (units (unkno wn) date) unknown) (unknown) (no (unknown) (unknown) Creatinine (units (unk nown) date) (0.52-1.04) mg/dL unknown) (unknown) (no (unknown) (unknown) Creatinine 2.35 H (units (unknown) date) (0.52-1.04) mg/dL unknown) (unknown) (no (unknown) (unknown) : 1950 (units (unknown) date) Acct:[id number] unknown) (unknown) (no (unknown) (unknown) Date of Service: (units (unknown) date) 12/13/22 unknown) (unknown) (no (unknown) (unknown) Departure (units (unkn own) date) unknown) (unknown) (no (unknown) (unknown) Discharge Plan (units (unknown) date) unknown) (unknown) (no (unknown) (unknown) Discontinued (units (u nknown) date) Medications unknown) (unknown) (no (unknown) (unknown) Documented By: KB (units (unknown) date) unknown) (unknown) (no (unknown) (unknown) Documented By: (units (unknown) date) RLS unknown) (unknown) (no (unknown) (unknown) ED Orders (units (unkn own) date) unknown) (unknown) (no (unknown) (unknown) EKG-12 Lead Stat (units (unknown) date) unknown) (unknown) (no (unknown) (unknown) ER Physician: (units ( unknown) date) Olga Talbert unknown) P.A-C (unknown) (no (unknown) (unknown) Emergency Report (units (unknown) date) unknown) (unknown) (no (unknown) (unknown) Eos # (Auto) (units (u nknown) date) (0-450) /uL unknown) (unknown) (no (unknown) (unknown) Eos # (Auto) 100 (units (unknown) date) (0-450) /uL unknown) (unknown) (no (unknown) (unknown) Eos % (Auto) (units (u nknown) date) (2-4) % unknown) (unknown) (no (unknown) (unknown) Eos % (Auto) 2.3 (units (unknown) date) (2-4) % unknown) (unknown) (no (unknown) (unknown) Esterase (units (unkno wn) date) unknown) (unknown) (no (unknown) (unknown) Estimated GFR (units ( unknown) date) (>60) mL/min unknown) (unknown) (no (unknown) (unknown) Estimated GFR 21 (units (unknown) date) L (>60) mL/min unknown) (unknown) (no (unknown) (unknown) Exam (units (unkno wn) date) unknown) (unknown) (no (unknown) (unknown) Furosemide 60 mg/ (units (unknown) date) Sodium (Chloride) unknown) 56 mls @ 112 mls/hr IV NOW ONE (unknown) (no (unknown) (unknown) GASTROINTESTINAL: (units (unknown) date) Denies nausea, unknown) vomiting, abdominal pain, diarrhea, (unknown) (no (unknown) (unknown) GENERAL: Denies (units (unknown) date) chills, admits to unknown) fatigue, no malaise, fever, sweats. (unknown) (no (unknown) (unknown) : Denies (units (unk nown) date) dysuria, unknown) frequency, incontinence, hematuria, urinary retention. (unknown) (no (unknown) (unknown) General (units (unkno wn) date) unknown) (unknown) (no (unknown) (unknown) Globulin (units (unkno wn) date) (1.7-4.1) g/dL unknown) (unknown) (no (unknown) (unknown) Globulin 3.9 (units (u nknown) date) (1.7-4.1) g/dL unknown) (unknown) (no (unknown) (unknown) Glucose (80-110) (units (unknown) date) mg/dL unknown) (unknown) (no (unknown) (unknown) Glucose 132 H (units ( unknown) date) (80-110) mg/dL unknown) (unknown) (no (unknown) (unknown) HEENT: Denies (units ( unknown) date) sinus pain, ear unknown) pain, sore throat, difficulty swallowing, (unknown) (no (unknown) (unknown) HPI - Back (units (unk nown) date) Pain/Injury unknown) (unknown) (no (unknown) (unknown) HPI Narrative: (units (unknown) date) unknown) (unknown) (no (unknown) (unknown) Has had (units (unkno wn) date) colonoscopy many unknown) years ago, over 15 years she admits, with 1 benign (unknown) (no (unknown) (unknown) Hct (36-46) % (units ( unknown) date) unknown) (unknown) (no (unknown) (unknown) Hct 29.9 L (units (unk nown) date) (36-46) % unknown) (unknown) (no (unknown) (unknown) He also reported (units (unknown) date) constipation. unknown) Imaging studies confirmed congestive heart (unknown) (no (unknown) (unknown) Heart failure (units ( unknown) date) type: unspecified unknown) Qualified Code(s): I50.9 - Heart failure, (unknown) (no (unknown) (unknown) Hgb (12.0-16.0) (units (unknown) date) g/dL unknown) (unknown) (no (unknown) (unknown) Hgb 9.6 L (units (unkn own) date) (12.0-16.0) g/dL unknown) (unknown) (no (unknown) (unknown) History of (units (unk nown) date) Present Illness unknown) (unknown) (no (unknown) (unknown) Home Medications (units (unknown) date) unknown) (unknown) (no (unknown) (unknown) Initial Vital (units ( unknown) date) Signs unknown) (unknown) (no (unknown) (unknown) Initial Vital (units ( unknown) date) Signs: unknown) (unknown) (no (unknown) (unknown) Instructions: DI (units (unknown) date) for Heart Failure unknown) (unknown) (no (unknown) (unknown) [facility] (units (unknown) date) [address] unknown) [place] [address] (unknown) (no (unknown) (unknown) Lab Data (units (unkno wn) date) unknown) (unknown) (no (unknown) (unknown) Lab Results (units (un known) date) unknown) (unknown) (no (unknown) (unknown) Labs: (units (unkno wn) date) unknown) (unknown) (no (unknown) (unknown) Last Infusion: (units (unknown) date) 12/13/22 15:38 unknown) Dose: 0 mls/hr (unknown) (no (unknown) (unknown) Last Infusion: (units (unknown) date) 12/13/22 17:04 unknown) Dose: 0 mls/hr (unknown) (no (unknown) (unknown) Lipase (23-300) (units (unknown) date) U/L unknown) (unknown) (no (unknown) (unknown) Lipase 201 (units (unk nown) date) (23-300) U/L unknown) (unknown) (no (unknown) (unknown) Aramis Godfrey, (units (unknown) date) [Primary Care unknown) Provider] (unknown) (no (unknown) (unknown) Lymph # (Auto) (units (unknown) date) (7116-3613) /uL unknown) (unknown) (no (unknown) (unknown) Lymph # (Auto) (units (unknown) date) 1000 L (8253-9279) unknown) /uL (unknown) (no (unknown) (unknown) Lymph % (Auto) (units (unknown) date) (25-40) % unknown) (unknown) (no (unknown) (unknown) Lymph % (Auto) (units (unknown) date) 19.0 L (25-40) % unknown) (unknown) (no (unknown) (unknown) MCH (26-34) PG (units (unknown) date) unknown) (unknown) (no (unknown) (unknown) MCH 32.9 (26-34) (units (unknown) date) PG unknown) (unknown) (no (unknown) (unknown) MCHC (30-36) % (units (unknown) date) unknown) (unknown) (no (unknown) (unknown) MCHC 32.1 (30-36) (units (unknown) date) % unknown) (unknown) (no (unknown) (unknown) MCV (80-100) fL (units (unknown) date) unknown) (unknown) (no (unknown) (unknown) MCV 102.6 H (units (un known) date) (80-100) fL unknown) (unknown) (no (unknown) (unknown) MDM - Back (units (unk nown) date) Pain/Injury unknown) (unknown) (no (unknown) (unknown) MUSCULOSKELETAL: (units (unknown) date) denies weakness, unknown) joint pain, or bony pain (unknown) (no (unknown) (unknown) Macrocytosis 1+ H (units (unknown) date) unknown) (unknown) (no (unknown) (unknown) Macrocytosis (units (u nknown) date) unknown) (unknown) (no (unknown) (unknown) Medication (units (unk nown) date) Instructions unknown) Recorded Confirmed (unknown) (no (unknown) (unknown) Medication (units (unk nown) date) Instructions unknown) Recorded (unknown) (no (unknown) (unknown) Stone # (Auto) (units ( unknown) date) (0-900) /uL unknown) (unknown) (no (unknown) (unknown) Stone # (Auto) 800 (units (unknown) date) (0-900) /uL unknown) (unknown) (no (unknown) (unknown) Stone % (Auto) (units ( unknown) date) (3-14) % unknown) (unknown) (no (unknown) (unknown) Stone % (Auto) (units ( unknown) date) 16.0 H (3-14) % unknown) (unknown) (no (unknown) (unknown) NEUROLOGIC: (units (un known) date) Denies weakness, unknown) headache, numbness, change in speech, confusion, (unknown) (no (unknown) (unknown) NT-Pro-B (units (unkno wn) date) Natriuret Pep unknown) (<125) pg/mL (unknown) (no (unknown) (unknown) NT-Pro-B (units (unkno wn) date) Natriuret Pep 4890 unknown) H (<125) pg/mL (unknown) (no (unknown) (unknown) Narrative: (units (unk nown) date) unknown) (unknown) (no (unknown) (unknown) Neut # (Auto) (units ( unknown) date) (7031-3920) /uL unknown) (unknown) (no (unknown) (unknown) Neut # (Auto) (units ( unknown) date) 3300 (5716-3582) unknown) /uL (unknown) (no (unknown) (unknown) Neut % (Auto) (units ( unknown) date) (50-75) % unknown) (unknown) (no (unknown) (unknown) Neut % (Auto) (units ( unknown) date) 62.1 (50-75) % unknown) (unknown) (no (unknown) (unknown) No Action (units (unkn own) date) unknown) (unknown) (no (unknown) (unknown) No blood in stool (units (unknown) date) unknown) (unknown) (no (unknown) (unknown) No new (units (unkno wn) date) medications given unknown) (unknown) (no (unknown) (unknown) Onset (ago): (units (u nknown) date) day(s) (7) unknown) (unknown) (no (unknown) (unknown) Ordered: (units (unkno wn) date) unknown) (unknown) (no (unknown) (unknown) Orders (units (unkno wn) date) unknown) (unknown) (no (unknown) (unknown) Oxygen Delivery (units (unknown) date) Method 12/13/22 unknown) 10:16 (unknown) (no (unknown) (unknown) PSYCHIATRIC: No (units (unknown) date) concerning unknown) psychosocial issues. (unknown) (no (unknown) (unknown) Patient (units (unkno wn) date) Disposition: Home unknown) (unknown) (no (unknown) (unknown) Patient History (units (unknown) date) unknown) (unknown) (no (unknown) (unknown) Patient also (units (u nknown) date) noted she is more unknown) short of breath then usual, and has difficulty (unknown) (no (unknown) (unknown) Patient got (units (un known) date) alarmed about unknown) change in BM, and tried OTC miralax and colace wo (unknown) (no (unknown) (unknown) Patient states (units (unknown) date) she does not eat unknown) as much but she does have difficulty to Lose (unknown) (no (unknown) (unknown) Patient: (units (unkno wn) date) Gómez Walls MR#: unknown) [id number] (unknown) (no (unknown) (unknown) Plt Count (units (unkn own) date) (150-400) X103/uL unknown) (unknown) (no (unknown) (unknown) Plt Count 86 L (units (unknown) date) (150-400) X103/uL unknown) (unknown) (no (unknown) (unknown) Potassium (units (unkn own) date) (3.4-5.1) mmol/L unknown) (unknown) (no (unknown) (unknown) Potassium 4.1 (units ( unknown) date) (3.4-5.1) mmol/L unknown) (unknown) (no (unknown) (unknown) Prescriptions: (units (unknown) date) unknown) (unknown) (no (unknown) (unknown) Previous Rx's (units ( unknown) date) unknown) (unknown) (no (unknown) (unknown) Pulse Oximetry 95 (units (unknown) date) 97 92 unknown) (unknown) (no (unknown) (unknown) Pulse Oximetry 96 (units (unknown) date) 12/13/22 10:16 unknown) (unknown) (no (unknown) (unknown) Pulse Oximetry 97 (units (unknown) date) 97 unknown) (unknown) (no (unknown) (unknown) Pulse Oximetry 97 (units (unknown) date) 98 unknown) (unknown) (no (unknown) (unknown) Pulse Oximetry 98 (units (unknown) date) 99 unknown) (unknown) (no (unknown) (unknown) Pulse Rate 60 (units ( unknown) date) 12/13/22 10:16 unknown) (unknown) (no (unknown) (unknown) Pulse Rate 63 63 (units (unknown) date) unknown) (unknown) (no (unknown) (unknown) Pulse Rate 63 64 (units (unknown) date) unknown) (unknown) (no (unknown) (unknown) Pulse Rate 65 65 (units (unknown) date) unknown) (unknown) (no (unknown) (unknown) Pulse Rate 69 (units ( unknown) date) unknown) (unknown) (no (unknown) (unknown) Pulse Rate 73 65 (units (unknown) date) 72 unknown) (unknown) (no (unknown) (unknown) Qualifiers: (units (un known) date) unknown) (unknown) (no (unknown) (unknown) RBC (4.0-5.2) (units ( unknown) date) X106/uL unknown) (unknown) (no (unknown) (unknown) RBC 2.92 L (units (unk nown) date) (4.0-5.2) X106/uL unknown) (unknown) (no (unknown) (unknown) RBC Morphology (units (unknown) date) Not Reportable unknown) (unknown) (no (unknown) (unknown) RBC Morphology (units (unknown) date) unknown) (unknown) (no (unknown) (unknown) RDW (11.6-14.8) % (units (unknown) date) unknown) (unknown) (no (unknown) (unknown) RDW 19.9 H (units (unk nown) date) (11.6-14.8) % unknown) (unknown) (no (unknown) (unknown) RESPIRATORY: (units (u nknown) date) Denies dyspnea, unknown) cough, wheezing, hemoptysis, sputum. (unknown) (no (unknown) (unknown) Referrals: (units (unk nown) date) unknown) (unknown) (no (unknown) (unknown) Related Data (units (u nknown) date) unknown) (unknown) (no (unknown) (unknown) Respiratory Rate (units (unknown) date) 16 unknown) (unknown) (no (unknown) (unknown) Respiratory Rate (units (unknown) date) 18 12/13/22 10:16 unknown) (unknown) (no (unknown) (unknown) Respiratory Rate (units (unknown) date) 20 unknown) (unknown) (no (unknown) (unknown) Respiratory Rate (units (unknown) date) unknown) (unknown) (no (unknown) (unknown) Review of Systems (units (unknown) date) unknown) (unknown) (no (unknown) (unknown) SKIN: Denies (units (u nknown) date) rash, skin unknown) lesions, or other (unknown) (no (unknown) (unknown) She admits to (units ( unknown) date) flatulence, urge unknown) to defecate, but not much comes out (unknown) (no (unknown) (unknown) She does not take (units (unknown) date) blood thinners, unknown) but on low dose ASA (unknown) (no (unknown) (unknown) She sees multiple (units (unknown) date) specialists, unknown) cardiology, nephrology, oncology, has a close (unknown) (no (unknown) (unknown) She states for (units (unknown) date) about 1 week she unknown) noticed some weight abdominal pain initially (unknown) (no (unknown) (unknown) Signed By: (units (unk nown) date) unknown) (unknown) (no (unknown) (unknown) Smoking Status: (units (unknown) date) Former smoker unknown) (unknown) (no (unknown) (unknown) Social History (units (unknown) date) (Reviewed 10/15/22 unknown) @ 18:46 by Ciara Pacheco DO) (unknown) (no (unknown) (unknown) Sodium (137-145) (units (unknown) date) mmol/L unknown) (unknown) (no (unknown) (unknown) Sodium 138 (units (unk nown) date) (137-145) mmol/L unknown) (unknown) (no (unknown) (unknown) Sodium Chloride (units (unknown) date) (Normal Saline unknown) 0.9%) 500 mls @ 1,000 mls/hr IV BOLUS ONE (unknown) (no (unknown) (unknown) Source: patient (units (unknown) date) unknown) (unknown) (no (unknown) (unknown) Stand Alone (units (un known) date) Forms: Patient unknown) Portal/API (unknown) (no (unknown) (unknown) Stated Complaint: (units (unknown) date) Constipation no BM unknown) x7days (unknown) (no (unknown) (unknown) Stop: 12/13/22 (units (unknown) date) 14:39 unknown) (unknown) (no (unknown) (unknown) Stop: 12/13/22 (units (unknown) date) 15:45 unknown) (unknown) (no (unknown) (unknown) Substance Use (units ( unknown) date) Type: does not use unknown) (unknown) (no (unknown) (unknown) Temperature 97.7 (units (unknown) date) F 12/13/22 10:16 unknown) (unknown) (no (unknown) (unknown) Time Seen by (units (u nknown) date) Provider: 12/13/22 unknown) 12:32 (unknown) (no (unknown) (unknown) Total Bilirubin (units (unknown) date) (0.2-1.3) mg/dL unknown) (unknown) (no (unknown) (unknown) Total Bilirubin (units (unknown) date) 0.9 (0.2-1.3) unknown) mg/dL (unknown) (no (unknown) (unknown) Total Creatine (units (unknown) date) Kinase (30-135) unknown) U/L (unknown) (no (unknown) (unknown) Total Creatine (units (unknown) date) Kinase 150 H unknown) (30-135) U/L (unknown) (no (unknown) (unknown) Total Protein (units ( unknown) date) (6.3-8.2) g/dL unknown) (unknown) (no (unknown) (unknown) Total Protein 7.7 (units (unknown) date) (6.3-8.2) g/dL unknown) (unknown) (no (unknown) (unknown) Troponin I (units (unk nown) date) (0.01-0.034) ng/mL unknown) (unknown) (no (unknown) (unknown) Troponin I 0.030 (units (unknown) date) (0.01-0.034) ng/mL unknown) (unknown) (no (unknown) (unknown) Ur Culture (units (unk nown) date) Indicated? unknown) Specimen cultured (unknown) (no (unknown) (unknown) Ur Culture (units (unk nown) date) Indicated? unknown) (unknown) (no (unknown) (unknown) Ur Leukocyte (units (u nknown) date) Esterase unknown) (NEGATIVE) (unknown) (no (unknown) (unknown) Ur Leukocyte (units (u nknown) date) Esterase 1+ H unknown) (NEGATIVE) (unknown) (no (unknown) (unknown) Ur Specific (units (un known) date) [place] unknown) (1.000-1.035) (unknown) (no (unknown) (unknown) Ur Specific (units (un known) date) [place] 1.010 unknown) (1.000-1.035) (unknown) (no (unknown) (unknown) Ur Squamous Epith (units (unknown) date) Cells (0-5/HPF) unknown) (unknown) (no (unknown) (unknown) Ur Squamous Epith (units (unknown) date) Cells 1-5 /hpf unknown) (0-5/HPF) (unknown) (no (unknown) (unknown) Urinalysis and (units (unknown) date) Microscopic Stat unknown) (unknown) (no (unknown) (unknown) Urine Appearance (units (unknown) date) Clear unknown) (unknown) (no (unknown) (unknown) Urine Appearance (units (unknown) date) unknown) (unknown) (no (unknown) (unknown) Urine Bacteria (units (unknown) date) (None) unknown) (unknown) (no (unknown) (unknown) Urine Bacteria (units (unknown) date) Few (2-10) H unknown) (None) (unknown) (no (unknown) (unknown) Urine Bilirubin (units (unknown) date) (NEGATIVE) unknown) (unknown) (no (unknown) (unknown) Urine Bilirubin (units (unknown) date) Negative unknown) (NEGATIVE) (unknown) (no (unknown) (unknown) Urine Color (units (un known) date) Yellow unknown) (unknown) (no (unknown) (unknown) Urine Color (units (un known) date) unknown) (unknown) (no (unknown) (unknown) Urine Culture (units ( unknown) date) Stat unknown) (unknown) (no (unknown) (unknown) Urine Dip (units (unkn own) date) unknown) (unknown) (no (unknown) (unknown) Urine Glucose (units ( unknown) date) (UA) (Negative) unknown) g/dL (unknown) (no (unknown) (unknown) Urine Glucose (units ( unknown) date) (UA) Negative unknown) (Negative) g/dL (unknown) (no (unknown) (unknown) Urine Ketones (units ( unknown) date) (NEGATIVE) unknown) (unknown) (no (unknown) (unknown) Urine Ketones (units ( unknown) date) Negative unknown) (NEGATIVE) (unknown) (no (unknown) (unknown) Urine Nitrate (units ( unknown) date) (Negative) unknown) (unknown) (no (unknown) (unknown) Urine Nitrate (units ( unknown) date) Negative unknown) (Negative) (unknown) (no (unknown) (unknown) Urine Occult (units (u nknown) date) Blood (Negative) unknown) (unknown) (no (unknown) (unknown) Urine Occult (units (u nknown) date) Blood Negative unknown) (Negative) (unknown) (no (unknown) (unknown) Urine Protein (units ( unknown) date) (Negative) unknown) (unknown) (no (unknown) (unknown) Urine Protein 1+ (units (unknown) date) H (Negative) unknown) (unknown) (no (unknown) (unknown) Urine RBC (units (unkn own) date) (0-5/HPF) unknown) (unknown) (no (unknown) (unknown) Urine RBC 0-1/hpf (units (unknown) date) (0-5/HPF) unknown) (unknown) (no (unknown) (unknown) Urine Specific (units (unknown) date) [place] 1.01 unknown) (unknown) (no (unknown) (unknown) Urine (units (unkno wn) date) Urobilinogen (0.2) unknown) E.U./dL (unknown) (no (unknown) (unknown) Urine (units (unkno wn) date) Urobilinogen 1.0 unknown) (0.2) E.U./dL (unknown) (no (unknown) (unknown) Urine WBC (units (unkn own) date) (0-5/HPF) unknown) (unknown) (no (unknown) (unknown) Urine WBC 1-5/hpf (units (unknown) date) (0-5/HPF) unknown) (unknown) (no (unknown) (unknown) Urine pH (units (unkno wn) date) (4.5-8.0) unknown) (unknown) (no (unknown) (unknown) Urine pH 7.0 (units (u nknown) date) (4.5-8.0) unknown) (unknown) (no (unknown) (unknown) Vital Signs - 8 (units (unknown) date) hr unknown) (unknown) (no (unknown) (unknown) Vital Signs (units (un known) date) unknown) (unknown) (no (unknown) (unknown) Vital signs: (units (u nknown) date) unknown) (unknown) (no (unknown) (unknown) WBC (4.5-11.0) (units (unknown) date) X103/uL unknown) (unknown) (no (unknown) (unknown) WBC 5.3 (units (unkno wn) date) (4.5-11.0) X103/uL unknown) (unknown) (no (unknown) (unknown) [Embedded Image (units (unknown) date) Not Available] unknown) (unknown) (no (unknown) (unknown) adjuvant (units (unkno wn) date) chemotherapyand 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 mastectomy, (unknown) (no (unknown) (unknown) alcohol intake (units (unknown) date) frequency: unknown) holidays/special occasions only (unknown) (no (unknown) (unknown) alcohol intake: (units (unknown) date) current unknown) (unknown) (no (unknown) (unknown) allopurinol 100 (units (unknown) date) mg tablet 100 mg unknown) PO DAILY 10/15/22 10/15/22 (unknown) (no (unknown) (unknown) allopurinol 100 (units (unknown) date) mg tablet unknown) (unknown) (no (unknown) (unknown) also has poor (units ( unknown) date) renal function, unknown) she is on multi drug regimen for her many medical (unknown) (no (unknown) (unknown) anastrozole 1 mg (units (unknown) date) tablet 1 mg PO unknown) DAILY 10/15/22 10/15/22 (unknown) (no (unknown) (unknown) anastrozole 1 mg (units (unknown) date) tablet unknown) (unknown) (no (unknown) (unknown) and then continue (units (unknown) date) with your usual unknown) dose 40 mg daily unless it would be changed (unknown) (no (unknown) (unknown) aspirin 81 mg (units ( unknown) date) Capsule unknown) (unknown) (no (unknown) (unknown) aspirin 81 mg (units ( unknown) date) capsule 81 mg PO unknown) DAILY 10/15/22 10/15/22 (unknown) (no (unknown) (unknown) atorvastatin 40 (units (unknown) date) mg tablet 40 mg PO unknown) BEDTIME 10/15/22 10/15/22 (unknown) (no (unknown) (unknown) atorvastatin 40 (units (unknown) date) mg tablet unknown) (unknown) (no (unknown) (unknown) by your (units (unkno wn) date) hand bulldozer or unknown) primary care provider (unknown) (no (unknown) (unknown) concerning (units (unk nown) date) symptoms, such as unknown) Worsening shortness of breath,fever greater than (unknown) (no (unknown) (unknown) conditions (units (unk nown) date) unknown) (unknown) (no (unknown) (unknown) constipation, (units ( unknown) date) melena. unknown) (unknown) (no (unknown) (unknown) device (units (unkno wn) date) unknown) (unknown) (no (unknown) (unknown) dizziness. (units (unk nown) date) unknown) (unknown) (no (unknown) (unknown) emergency room (units (unknown) date) with complaints of unknown) constipation. (unknown) (no (unknown) (unknown) failure, no acute (units (unknown) date) intra-abdominal unknown) findings. (unknown) (no (unknown) (unknown) ferrous sulfate (units (unknown) date) 325 mg (65 mg 325 unknown) mg PO DAILY 10/15/22 10/15/22 (unknown) (no (unknown) (unknown) ferrous sulfate (units (unknown) date) 325 mg (65 mg unknown) iron) Tablet (unknown) (no (unknown) (unknown) fluticasone 500 (units (unknown) date) mcg-salmeterol 50 unknown) 1 inh inhalation BID 10/15/22 10/15/22 (unknown) (no (unknown) (unknown) fluticasone (units (un known) date) propion-salmeterol unknown) [Advair Diskus] 500-50 mcg/dose blister with (unknown) (no (unknown) (unknown) follow with her (units (unknown) date) PCP, whom she is unknown) planningto see tomorrow (unknown) (no (unknown) (unknown) for an (units (unkno wn) date) appointment. Let unknown) them know you were seen in the Emergency Department and (unknown) (no (unknown) (unknown) for viral (units (unkn own) date) pneumonia unknown) (COVID-19 in October 2022) exacerbation of CHF presents to (unknown) (no (unknown) (unknown) gentamicin (units (unk nown) date) Allergy Verified unknown) 10/15/22 17:02 (unknown) (no (unknown) (unknown) her appetite was (units (unknown) date) poor as well. unknown) (unknown) (no (unknown) (unknown) household (units (unkn own) date) members: spouse unknown) (unknown) (no (unknown) (unknown) however for next (units (unknown) date) 2 days please unknown) increase the dose of the torsemide to 40 (unknown) (no (unknown) (unknown) if constipation (units (unknown) date) continues to be a unknown) problem, try stool softeners, occasional (unknown) (no (unknown) (unknown) in turn can (units (un known) date) trigger worsening unknown) shortness of breath and dyspnea on exertion as (unknown) (no (unknown) (unknown) including lung (units (unknown) date) cancer, status unknown) post partial lobectomy right lung, treated with (unknown) (no (unknown) (unknown) including mitral (units (unknown) date) valve replacement, unknown) congestive heart failure, recent admission (unknown) (no (unknown) (unknown) inhalation (units (unk nown) date) (Advair Diskus) unknown) (unknown) (no (unknown) (unknown) iron) tablet (units (u nknown) date) unknown) (unknown) (no (unknown) (unknown) levothyroxine 100 (units (unknown) date) mcg tablet 100 mcg unknown) PO DAILY 10/15/22 10/15/22 (unknown) (no (unknown) (unknown) levothyroxine 100 (units (unknown) date) mcg tablet unknown) (unknown) (no (unknown) (unknown) magnesium (units (unkn own) date) chloride 64 mg 64 unknown) mg PO DAILY 10/15/22 10/15/22 (unknown) (no (unknown) (unknown) magnesium (units (unkn own) date) chloride 64 mg unknown) Tablet Extended Release (unknown) (no (unknown) (unknown) mcg/dose blistr (units (unknown) date) powdr for unknown) (unknown) (no (unknown) (unknown) metoprolol (units (unk nown) date) succinate 100 mg unknown) 100 mg PO DAILY #90 tabs 10/18/22 (unknown) (no (unknown) (unknown) metoprolol (units (unk nown) date) succinate 100 mg unknown) tablet extended release 24 hr (unknown) (no (unknown) (unknown) mg twice daily (units (unknown) date) unknown) (unknown) (no (unknown) (unknown) negotiating steps (units (unknown) date) with some dyspnea unknown) on excertion (unknown) (no (unknown) (unknown) patient has very (units (unknown) date) little bowel unknown) movement, which was mostly soft. She did admit (unknown) (no (unknown) (unknown) polyp removed. (units (unknown) date) unknown) (unknown) (no (unknown) (unknown) radiation and now (units (unknown) date) on anastrozole unknown) (both diagnosis and treatment took place in (unknown) (no (unknown) (unknown) record of today's (units (unknown) date) note if your PCP unknown) is in our system (unknown) (no (unknown) (unknown) seizures, (units (unkn own) date) incoordination. unknown) (unknown) (no (unknown) (unknown) senna laxative. (units (unknown) date) unknown) (unknown) (no (unknown) (unknown) settled in the (units ( unknown) date) midback, also she unknown) has had sensation of bloatedness, low appetite. (unknown) (no (unknown) (unknown) significant (units (un known) date) improvement unknown) (unknown) (no (unknown) (unknown) started in right (units (unknown) date) upper quadrant unknown) then migrated to left upper quadrant, then (unknown) (no (unknown) (unknown) symptoms (units (unkno wn) date) unknown) (unknown) (no (unknown) (unknown) tablet,extended (units (unknown) date) release 24 hr unknown) (unknown) (no (unknown) (unknown) tablet,extended (units (unknown) date) release unknown) (unknown) (no (unknown) (unknown) that we ask that (units (unknown) date) you be seen in unknown) follow up. We will electronically transmit a (unknown) (no (unknown) (unknown) the patient is 72 (units (unknown) date) years old unknown) female, with extensive medical history (unknown) (no (unknown) (unknown) torsemide 20 mg (units (unknown) date) tablet 40 mg PO unknown) DAILY 10/15/22 10/15/22 (unknown) (no (unknown) (unknown) torsemide 20 mg (units (unknown) date) tablet unknown) (unknown) (no (unknown) (unknown) unspecified (units (un known) date) unknown) (unknown) (no (unknown) (unknown) weight. she (units (un known) date) describes her unknown) bowel habits as regular however within past week, (unknown) (no (unknown) (unknown) well as anemia, (units (unknown) date) which also could unknown) be a culprit of your symptoms. Result panel 192 (unknown) (no (unknown) (unknown) (no value) (units (unk nown) date) unknown) (unknown) (no (unknown) (unknown) *Please continue (units (unknown) date) to take your unknown) regular medications as directed. (unknown) (no (unknown) (unknown) *Please follow up (units (unknown) date) with your primary unknown) care provider in as soon as possible call (unknown) (no (unknown) (unknown) *Return to (units (unk nown) date) Emergency unknown) Department if you should have any new, worsening or (unknown) (no (unknown) (unknown) *What to do: (units (u nknown) date) unknown) (unknown) (no (unknown) (unknown) *You have been (units (unknown) date) diagnosed with unknown) Exacerbation of congestive heart failure which (unknown) (no (unknown) (unknown) 12/13/22 12/13/22 (units (unknown) date) 12/13/22 unknown) Range/Units (unknown) (no (unknown) (unknown) 12/13/22 12/13/22 (units (unknown) date) Range/Units unknown) (unknown) (no (unknown) (unknown) 12/13/22 12:35 (units (unknown) date) unknown) (unknown) (no (unknown) (unknown) 12/13/22 13:15 (units (unknown) date) unknown) (unknown) (no (unknown) (unknown) 12/13/22 14:24 (units (unknown) date) unknown) (unknown) (no (unknown) (unknown) 12/13/22 15:35 (units (unknown) date) unknown) (unknown) (no (unknown) (unknown) 12/13/22 (units (unkno wn) date) unknown) (unknown) (no (unknown) (unknown) 1 inh INHALATION (units (unknown) date) BID unknown) (unknown) (no (unknown) (unknown) 1 mg PO DAILY (units ( unknown) date) unknown) (unknown) (no (unknown) (unknown) 100 mcg PO DAILY (units (unknown) date) unknown) (unknown) (no (unknown) (unknown) 100 mg PO DAILY (units (unknown) date) Qty: 90 0RF unknown) (unknown) (no (unknown) (unknown) 100 mg PO DAILY (units (unknown) date) unknown) (unknown) (no (unknown) (unknown) 101 F, shaking (units (unknown) date) chills, worsening unknown) pain, persistent vomiting or other bothersome (unknown) (no (unknown) (unknown) 12:35 12:35 12:35 (units (unknown) date) unknown) (unknown) (no (unknown) (unknown) 12:35 13:15 (units (un known) date) unknown) (unknown) (no (unknown) (unknown) 14:30 12/13/22 (units (unknown) date) unknown) (unknown) (no (unknown) (unknown) 14:51 12/13/22 (units (unknown) date) unknown) (unknown) (no (unknown) (unknown) 14:51 (units (unkno wn) date) unknown) (unknown) (no (unknown) (unknown) 15:00 12/13/22 (units (unknown) date) unknown) (unknown) (no (unknown) (unknown) 15:01 12/13/22 (units (unknown) date) unknown) (unknown) (no (unknown) (unknown) 15:01 (units (unkno wn) date) unknown) (unknown) (no (unknown) (unknown) 15:30 12/13/22 (units (unknown) date) unknown) (unknown) (no (unknown) (unknown) 15:31 12/13/22 (units (unknown) date) unknown) (unknown) (no (unknown) (unknown) 15:31 (units (unkno wn) date) unknown) (unknown) (no (unknown) (unknown) 16:01 12/13/22 (units (unknown) date) unknown) (unknown) (no (unknown) (unknown) 16:30 12/13/22 (units (unknown) date) unknown) (unknown) (no (unknown) (unknown) 17:18 (units (unkno wn) date) unknown) (unknown) (no (unknown) (unknown) 17:19 12/13/22 (units (unknown) date) unknown) (unknown) (no (unknown) (unknown) 17:25 (units (unkno wn) date) unknown) (unknown) (no (unknown) (unknown) 2018 ), she (units (un known) date) follows routinely unknown) with her oncologist, also cardiac history (unknown) (no (unknown) (unknown) 3097 (units (unkno wn) date) unknown) (unknown) (no (unknown) (unknown) 325 mg PO DAILY (units (unknown) date) unknown) (unknown) (no (unknown) (unknown) 40 mg PO BEDTIME (units (unknown) date) unknown) (unknown) (no (unknown) (unknown) 40 mg PO DAILY (units (unknown) date) unknown) (unknown) (no (unknown) (unknown) 64 mg PO DAILY (units (unknown) date) unknown) (unknown) (no (unknown) (unknown) 81 mg PO DAILY (units (unknown) date) unknown) (unknown) (no (unknown) (unknown) ? (units (unkno wn) date) unknown) (unknown) (no (unknown) (unknown) ALT (<35) IU/L (units (unknown) date) unknown) (unknown) (no (unknown) (unknown) ALT 21 (<35) IU/L (units (unknown) date) unknown) (unknown) (no (unknown) (unknown) AST (14-36) IU/L (units (unknown) date) unknown) (unknown) (no (unknown) (unknown) AST 42 H (14-36) (units (unknown) date) IU/L unknown) (unknown) (no (unknown) (unknown) Abdominal x-ray: (units (unknown) date) unknown) (unknown) (no (unknown) (unknown) Activity (units (unkno wn) date) Restrictions/Additi unknown) onal Instructions: (unknown) (no (unknown) (unknown) Additionally (units (u nknown) date) patient is aware of unknown) being anemic for some time, takes iron. She (unknown) (no (unknown) (unknown) Admin: 12/13/22 (units (unknown) date) 14:15 Dose: 1,000 unknown) mls/hr (unknown) (no (unknown) (unknown) Admin: 12/13/22 (units (unknown) date) 16:10 Dose: 112 unknown) mls/hr (unknown) (no (unknown) (unknown) Age/Sex: 72 / F (units (unknown) date) unknown) (unknown) (no (unknown) (unknown) Albumin (3.5-5.0) (units (unknown) date) g/dL unknown) (unknown) (no (unknown) (unknown) Albumin 3.8 (units (un known) date) (3.5-5.0) g/dL unknown) (unknown) (no (unknown) (unknown) Albumin/Globulin (units (unknown) date) Ratio (1.0-2.8) unknown) (unknown) (no (unknown) (unknown) Albumin/Globulin (units (unknown) date) Ratio 1.0 (1.0-2.8) unknown) (unknown) (no (unknown) (unknown) Alkaline (units (unkno wn) date) Phosphatase unknown) (38-126) U/L (unknown) (no (unknown) (unknown) Alkaline (units (unkno wn) date) Phosphatase 130 H unknown) (38-126) U/L (unknown) (no (unknown) (unknown) Allergies (units (unkn own) date) unknown) (unknown) (no (unknown) (unknown) Allergy/AdvReac (units (unknown) date) Type Severity unknown) Reaction Status Date / Time (unknown) (no (unknown) (unknown) 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 No flank tenderness. (unknown) (no (unknown) (unknown) BUN (7-17) mg/dL (units (unknown) date) unknown) (unknown) (no (unknown) (unknown) BUN 37 H (7-17) (units (unknown) date) mg/dL unknown) (unknown) (no (unknown) (unknown) BUN/Creatinine (units (unknown) date) Ratio (6-22) unknown) (unknown) (no (unknown) (unknown) BUN/Creatinine (units (unknown) date) Ratio 15.7 (6-22) unknown) (unknown) (no (unknown) (unknown) Baso # (Auto) (units ( unknown) date) (0-100) /uL unknown) (unknown) (no (unknown) (unknown) Baso # (Auto) 0 (units (unknown) date) (0-100) /uL unknown) (unknown) (no (unknown) (unknown) Baso % (Auto) (units ( unknown) date) (0-2) % unknown) (unknown) (no (unknown) (unknown) Baso % (Auto) 0.6 (units (unknown) date) (0-2) % unknown) (unknown) (no (unknown) (unknown) Bedside Urine (units ( unknown) date) Bilirubin - unknown) Negative (unknown) (no (unknown) (unknown) Bedside Urine (units ( unknown) date) Glucose Negative unknown) (unknown) (no (unknown) (unknown) Bedside Urine (units ( unknown) date) Ketone - Negative unknown) (unknown) (no (unknown) (unknown) Bedside Urine (units ( unknown) date) Leukocytes +/- 15 unknown) (unknown) (no (unknown) (unknown) Bedside Urine (units ( unknown) date) Nitrite - Negative unknown) (unknown) (no (unknown) (unknown) Bedside Urine (units ( unknown) date) Occult Blood - unknown) Negative (unknown) (no (unknown) (unknown) Bedside Urine (units ( unknown) date) Protein + 30 unknown) (unknown) (no (unknown) (unknown) Bedside Urine (units ( unknown) date) Urobilinogen - unknown) Negative (unknown) (no (unknown) (unknown) Bedside Urine pH (units (unknown) date) 6.5 unknown) (unknown) (no (unknown) (unknown) Blood Pressure (units (unknown) date) 143/72 H unknown) (unknown) (no (unknown) (unknown) Blood Pressure (units (unknown) date) 163/75 H unknown) (unknown) (no (unknown) (unknown) Blood Pressure (units (unknown) date) 181/72 H unknown) (unknown) (no (unknown) (unknown) Blood Pressure (units (unknown) date) 181/75 H unknown) (unknown) (no (unknown) (unknown) Blood Pressure (units (unknown) date) 191/97 H 12/13/22 unknown) 10:16 (unknown) (no (unknown) (unknown) Blood Pressure (units (unknown) date) unknown) (unknown) (no (unknown) (unknown) CARDIOVASCULAR: (units (unknown) date) Denies chest pain, unknown) palpitations, admits to orthopnea, no leg (unknown) (no (unknown) (unknown) CARDIOVASCULAR: (units (unknown) date) Regular rate and unknown) rhythm without murmurs, gallops, or rubs. (unknown) (no (unknown) (unknown) CHF exacerbation (units (unknown) date) unknown) (unknown) (no (unknown) (unknown) CK-MB (CK-2) (units (u nknown) date) (<2.37) ng/mL unknown) (unknown) (no (unknown) (unknown) CK-MB (CK-2) 0.85 (units (unknown) date) (<2.37) ng/mL unknown) (unknown) (no (unknown) (unknown) CK-MB (CK-2) Rel (units (unknown) date) Index (1.5-5.0) % unknown) (unknown) (no (unknown) (unknown) CK-MB (CK-2) Rel (units (unknown) date) Index 0.6 L unknown) (1.5-5.0) % (unknown) (no (unknown) (unknown) CT abdomen pelvis (units (unknown) date) wo con Stat unknown) (unknown) (no (unknown) (unknown) Calcium (8.4-10.2) (units (unknown) date) mg/dL unknown) (unknown) (no (unknown) (unknown) Calcium 8.5 (units (un known) date) (8.4-10.2) mg/dL unknown) (unknown) (no (unknown) (unknown) Carbon Dioxide (units (unknown) date) (22-32) mmol/L unknown) (unknown) (no (unknown) (unknown) Carbon Dioxide 25 (units (unknown) date) (22-32) mmol/L unknown) (unknown) (no (unknown) (unknown) Chest [XR chest (units (unknown) date) 1V] Stat unknown) (unknown) (no (unknown) (unknown) Chest x-ray: (units (u nknown) date) unknown) (unknown) (no (unknown) (unknown) Chief Complaint: (units (unknown) date) Back Pain/Injury unknown) (unknown) (no (unknown) (unknown) Chloride (98-107) (units (unknown) date) mmol/L unknown) (unknown) (no (unknown) (unknown) Chloride 103 (units (u nknown) date) (98-107) mmol/L unknown) (unknown) (no (unknown) (unknown) Clinical (units (unkno wn) date) Impression: unknown) (unknown) (no (unknown) (unknown) Constipation, (units ( unknown) date) unspecified unknown) (unknown) (no (unknown) (unknown) Course (units (unkno wn) date) unknown) (unknown) (no (unknown) (unknown) Creatinine (units (unk nown) date) (0.52-1.04) mg/dL unknown) (unknown) (no (unknown) (unknown) Creatinine 2.35 H (units (unknown) date) (0.52-1.04) mg/dL unknown) (unknown) (no (unknown) (unknown) : 1950 (units (unknown) date) Acct:[id number] unknown) (unknown) (no (unknown) (unknown) Date of Service: (units (unknown) date) 12/13/22 unknown) (unknown) (no (unknown) (unknown) Departure (units (unkn own) date) unknown) (unknown) (no (unknown) (unknown) Discharge Plan (units (unknown) date) unknown) (unknown) (no (unknown) (unknown) Discontinued (units (u nknown) date) Medications unknown) (unknown) (no (unknown) (unknown) Documented By: KB (units (unknown) date) unknown) (unknown) (no (unknown) (unknown) Documented By: RLS (units (unknown) date) unknown) (unknown) (no (unknown) (unknown) ED Orders (units (unkn own) date) unknown) (unknown) (no (unknown) (unknown) EKG-12 Lead Stat (units (unknown) date) unknown) (unknown) (no (unknown) (unknown) ENT: Nose without (units (unknown) date) bleeding, purulent unknown) drainage. Throat without erythema, (unknown) (no (unknown) (unknown) ER Physician: (units ( unknown) date) Olga Talbert unknown) P.A-C (unknown) (no (unknown) (unknown) EXTREMITIES: No (units (unknown) date) edema LE unknown) (unknown) (no (unknown) (unknown) EYES: Pupils equal (units (unknown) date) round and reactive. unknown) Extraocular motions intact. No scleral (unknown) (no (unknown) (unknown) Emergency Report (units (unknown) date) unknown) (unknown) (no (unknown) (unknown) Eos # (Auto) (units (u nknown) date) (0-450) /uL unknown) (unknown) (no (unknown) (unknown) Eos # (Auto) 100 (units (unknown) date) (0-450) /uL unknown) (unknown) (no (unknown) (unknown) Eos % (Auto) (2-4) (units (unknown) date) % unknown) (unknown) (no (unknown) (unknown) Eos % (Auto) 2.3 (units (unknown) date) (2-4) % unknown) (unknown) (no (unknown) (unknown) Esterase (units (unkno wn) date) unknown) (unknown) (no (unknown) (unknown) Estimated GFR (units ( unknown) date) (>60) mL/min unknown) (unknown) (no (unknown) (unknown) Estimated GFR 21 L (units (unknown) date) (>60) mL/min unknown) (unknown) (no (unknown) (unknown) Exam Narrative: (units (unknown) date) unknown) (unknown) (no (unknown) (unknown) Exam (units (unkno wn) date) unknown) (unknown) (no (unknown) (unknown) Furosemide 60 mg/ (units (unknown) date) Sodium (Chloride) unknown) 56 mls @ 112 mls/hr IV NOW ONE (unknown) (no (unknown) (unknown) GASTROINTESTINAL: (units (unknown) date) Abdomen soft, unknown) non-tender, slightly distended. Normal BS no (unknown) (no (unknown) (unknown) GASTROINTESTINAL: (units (unknown) date) Denies nausea, unknown) vomiting, has had RUQ and LUQ abdominal pain, (unknown) (no (unknown) (unknown) GENERAL: 72 year (units (unknown) date) old patient appears unknown) stated age. Well-developed patient, in no (unknown) (no (unknown) (unknown) GENERAL: Denies (units (unknown) date) chills, admits to unknown) fatigue, no malaise, fever, sweats. (unknown) (no (unknown) (unknown) : Denies (units (unk nown) date) dysuria,has a unknown) frequency, takes diuretics (unknown) (no (unknown) (unknown) General (units (unkno wn) date) unknown) (unknown) (no (unknown) (unknown) Globulin (1.7-4.1) (units (unknown) date) g/dL unknown) (unknown) (no (unknown) (unknown) Globulin 3.9 (units (u nknown) date) (1.7-4.1) g/dL unknown) (unknown) (no (unknown) (unknown) Glucose (80-110) (units (unknown) date) mg/dL unknown) (unknown) (no (unknown) (unknown) Glucose 132 H (units ( unknown) date) (80-110) mg/dL unknown) (unknown) (no (unknown) (unknown) HEAD: Atraumatic. (units (unknown) date) Normocephalic. unknown) (unknown) (no (unknown) (unknown) HEENT: Denies (units ( unknown) date) sinus pain, ear unknown) pain, sore throat, difficulty swallowing, (unknown) (no (unknown) (unknown) HPI - Back (units (unk nown) date) Pain/Injury unknown) (unknown) (no (unknown) (unknown) HPI Narrative: (units (unknown) date) unknown) (unknown) (no (unknown) (unknown) Has had (units (unkno wn) date) colonoscopy many unknown) years ago, over 15 years she admits, with 1 benign (unknown) (no (unknown) (unknown) Hct (36-46) % (units ( unknown) date) unknown) (unknown) (no (unknown) (unknown) Hct 29.9 L (36-46) (units (unknown) date) % unknown) (unknown) (no (unknown) (unknown) He also reported (units (unknown) date) constipation. unknown) Imaging studies confirmed congestive heart (unknown) (no (unknown) (unknown) Heart failure (units ( unknown) date) type: unspecified unknown) Qualified Code(s): I50.9 - Heart failure, (unknown) (no (unknown) (unknown) Hgb (12.0-16.0) (units (unknown) date) g/dL unknown) (unknown) (no (unknown) (unknown) Hgb 9.6 L (units (unkn own) date) (12.0-16.0) g/dL unknown) (unknown) (no (unknown) (unknown) History of Present (units (unknown) date) Illness unknown) (unknown) (no (unknown) (unknown) Home Medications (units (unknown) date) unknown) (unknown) (no (unknown) (unknown) IMPRESSION:? (units (u nknown) date) Cardiomegaly, unknown) pleural effusions, and interstitial prominence.? CHF (unknown) (no (unknown) (unknown) IMPRESSION:? There (units (unknown) date) is only a mild unknown) amount of stool seen within the distal colon.? (unknown) (no (unknown) (unknown) Imaging Data (units (u nknown) date) unknown) (unknown) (no (unknown) (unknown) Initial Vital (units ( unknown) date) Signs unknown) (unknown) (no (unknown) (unknown) Initial Vital (units ( unknown) date) Signs: unknown) (unknown) (no (unknown) (unknown) Instructions: DI (units (unknown) date) for Heart Failure unknown) (unknown) (no (unknown) (unknown) [facility] (units (unknown) date) [address] unknown) [place] [address] (unknown) (no (unknown) (unknown) Lab Data (units (unkno wn) date) unknown) (unknown) (no (unknown) (unknown) Lab Results (units (un known) date) unknown) (unknown) (no (unknown) (unknown) Lab results (units (un known) date) narrative: unknown) (unknown) (no (unknown) (unknown) Labs: (units (unkno wn) date) unknown) (unknown) (no (unknown) (unknown) Last Infusion: (units (unknown) date) 12/13/22 15:38 unknown) Dose: 0 mls/hr (unknown) (no (unknown) (unknown) Last Infusion: (units (unknown) date) 12/13/22 17:04 unknown) Dose: 0 mls/hr (unknown) (no (unknown) (unknown) Lipase (23-300) (units (unknown) date) U/L unknown) (unknown) (no (unknown) (unknown) Lipase 201 (units (unk nown) date) (23-300) U/L unknown) (unknown) (no (unknown) (unknown) Aramis Godfrey, (units (unknown) date) [Primary Care unknown) Provider] (unknown) (no (unknown) (unknown) Lymph # (Auto) (units (unknown) date) ([phone]) /uL unknown) (unknown) (no (unknown) (unknown) Lymph # (Auto) (units (unknown) date) 1000 L ([id number]) unknown) /uL (unknown) (no (unknown) (unknown) Lymph % (Auto) (units (unknown) date) (25-40) % unknown) (unknown) (no (unknown) (unknown) Lymph % (Auto) (units (unknown) date) 19.0 L (25-40) % unknown) (unknown) (no (unknown) (unknown) MCH (26-34) PG (units (unknown) date) unknown) (unknown) (no (unknown) (unknown) MCH 32.9 (26-34) (units (unknown) date) PG unknown) (unknown) (no (unknown) (unknown) MCHC (30-36) % (units (unknown) date) unknown) (unknown) (no (unknown) (unknown) MCHC 32.1 (30-36) (units (unknown) date) % unknown) (unknown) (no (unknown) (unknown) MCV (80-100) fL (units (unknown) date) unknown) (unknown) (no (unknown) (unknown) MCV 102.6 H (units (un known) date) (80-100) fL unknown) (unknown) (no (unknown) (unknown) MDM - Back (units (unk nown) date) Pain/Injury unknown) (unknown) (no (unknown) (unknown) MUSCULOSKELETAL: (units (unknown) date) denies weakness, unknown) joint pain, or bony pain (unknown) (no (unknown) (unknown) Macrocytosis 1+ H (units (unknown) date) unknown) (unknown) (no (unknown) (unknown) Macrocytosis (units (u nknown) date) unknown) (unknown) (no (unknown) (unknown) Medication (units (unk nown) date) Instructions unknown) Recorded Confirmed (unknown) (no (unknown) (unknown) Medication (units (unk nown) date) Instructions unknown) Recorded (unknown) (no (unknown) (unknown) Stone # (Auto) (units ( unknown) date) (0-900) /uL unknown) (unknown) (no (unknown) (unknown) Stone # (Auto) 800 (units (unknown) date) (0-900) /uL unknown) (unknown) (no (unknown) (unknown) Stone % (Auto) (units ( unknown) date) (3-14) % unknown) (unknown) (no (unknown) (unknown) Stone % (Auto) 16.0 (units (unknown) date) H (3-14) % unknown) (unknown) (no (unknown) (unknown) NECK: Trachea (units ( unknown) date) midline. Non tender unknown) (unknown) (no (unknown) (unknown) NEURO: AOx3. (units (u nknown) date) unknown) (unknown) (no (unknown) (unknown) NEUROLOGIC: Denies (units (unknown) date) weakness, headache, unknown) numbness, change in speech, confusion, (unknown) (no (unknown) (unknown) NT-Pro-B Natriuret (units (unknown) date) Pep (<125) pg/mL unknown) (unknown) (no (unknown) (unknown) NT-Pro-B Natriuret (units (unknown) date) Pep 4890 H (<125) unknown) pg/mL (unknown) (no (unknown) (unknown) Narrative (units (unkn own) date) unknown) (unknown) (no (unknown) (unknown) Narrative: (units (unk nown) date) unknown) (unknown) (no (unknown) (unknown) Neut # (Auto) (units ( unknown) date) (0224-3378) /uL unknown) (unknown) (no (unknown) (unknown) Neut # (Auto) 3300 (units (unknown) date) (0972-0625) /uL unknown) (unknown) (no (unknown) (unknown) Neut % (Auto) (units ( unknown) date) (50-75) % unknown) (unknown) (no (unknown) (unknown) Neut % (Auto) 62.1 (units (unknown) date) (50-75) % unknown) (unknown) (no (unknown) (unknown) No Action (units (unkn own) date) unknown) (unknown) (no (unknown) (unknown) No blood in stool (units (unknown) date) unknown) (unknown) (no (unknown) (unknown) No new medications (units (unknown) date) given unknown) (unknown) (no (unknown) (unknown) Onset (ago): (units (u nknown) date) day(s) (7) unknown) (unknown) (no (unknown) (unknown) Ordered: (units (unkno wn) date) unknown) (unknown) (no (unknown) (unknown) Orders (units (unkno wn) date) unknown) (unknown) (no (unknown) (unknown) Oxygen Delivery (units (unknown) date) Method 12/13/22 unknown) 10:16 (unknown) (no (unknown) (unknown) PSYCHIATRIC: No (units (unknown) date) concerning unknown) psychosocial issues. (unknown) (no (unknown) (unknown) Patient (units (unkno wn) date) Disposition: Home unknown) (unknown) (no (unknown) (unknown) Patient History (units (unknown) date) unknown) (unknown) (no (unknown) (unknown) Patient also noted (units (unknown) date) she is more short unknown) of breath then usual, and has difficulty (unknown) (no (unknown) (unknown) Patient got (units (un known) date) alarmed about unknown) change in BM, and tried OTC miralax and colace wo (unknown) (no (unknown) (unknown) Patient states she (units (unknown) date) does not eat as unknown) much but she does have difficulty to Lose (unknown) (no (unknown) (unknown) Patient: (units (unkno wn) date) Gómez Walls MR#: unknown) [id number] (unknown) (no (unknown) (unknown) Plt Count (units (unkn own) date) (150-400) X103/uL unknown) (unknown) (no (unknown) (unknown) Plt Count 86 L (units (unknown) date) (150-400) X103/uL unknown) (unknown) (no (unknown) (unknown) Postoperative and (units (unknown) date) degenerative unknown) changes are seen.? 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 (unknown) (no (unknown) (unknown) Potassium (units (unkn own) date) (3.4-5.1) mmol/L unknown) (unknown) (no (unknown) (unknown) Potassium 4.1 (units ( unknown) date) (3.4-5.1) mmol/L unknown) (unknown) (no (unknown) (unknown) Prescriptions: (units (unknown) date) unknown) (unknown) (no (unknown) (unknown) Previous Rx's (units ( unknown) date) unknown) (unknown) (no (unknown) (unknown) Pulse Oximetry 95 (units (unknown) date) 97 92 unknown) (unknown) (no (unknown) (unknown) Pulse Oximetry 96 (units (unknown) date) 12/13/22 10:16 unknown) (unknown) (no (unknown) (unknown) Pulse Oximetry 97 (units (unknown) date) 97 unknown) (unknown) (no (unknown) (unknown) Pulse Oximetry 97 (units (unknown) date) 98 unknown) (unknown) (no (unknown) (unknown) Pulse Oximetry 98 (units (unknown) date) 99 unknown) (unknown) (no (unknown) (unknown) Pulse Rate 60 (units ( unknown) date) 12/13/22 10:16 unknown) (unknown) (no (unknown) (unknown) Pulse Rate 63 63 (units (unknown) date) unknown) (unknown) (no (unknown) (unknown) Pulse Rate 63 64 (units (unknown) date) unknown) (unknown) (no (unknown) (unknown) Pulse Rate 65 65 (units (unknown) date) unknown) (unknown) (no (unknown) (unknown) Pulse Rate 69 (units ( unknown) date) unknown) (unknown) (no (unknown) (unknown) Pulse Rate 73 65 (units (unknown) date) 72 unknown) (unknown) (no (unknown) (unknown) Qualifiers: (units (un known) date) unknown) (unknown) (no (unknown) (unknown) RBC (4.0-5.2) (units ( unknown) date) X106/uL unknown) (unknown) (no (unknown) (unknown) RBC 2.92 L (units (unk nown) date) (4.0-5.2) X106/uL unknown) (unknown) (no (unknown) (unknown) RBC Morphology Not (units (unknown) date) Reportable unknown) (unknown) (no (unknown) (unknown) RBC Morphology (units (unknown) date) unknown) (unknown) (no (unknown) (unknown) RDW (11.6-14.8) % (units (unknown) date) unknown) (unknown) (no (unknown) (unknown) RDW 19.9 H (units (unk nown) date) (11.6-14.8) % unknown) (unknown) (no (unknown) (unknown) RESPIRATORY: (units (u nknown) date) admits to dyspnea, unknown) no cough, wheezing, hemoptysis, sputum. (unknown) (no (unknown) (unknown) RESPIRATORY: there (units (unknown) date) are scattered rales unknown) not cleared with cough (unknown) (no (unknown) (unknown) Radiologist's (units ( unknown) date) Impression: unknown) (unknown) (no (unknown) (unknown) Referrals: (units (unk nown) date) unknown) (unknown) (no (unknown) (unknown) Related Data (units (u nknown) date) unknown) (unknown) (no (unknown) (unknown) Respiratory Rate (units (unknown) date) 16 unknown) (unknown) (no (unknown) (unknown) Respiratory Rate (units (unknown) date) 18 12/13/22 10:16 unknown) (unknown) (no (unknown) (unknown) Respiratory Rate (units (unknown) date) 20 unknown) (unknown) (no (unknown) (unknown) Respiratory Rate (units (unknown) date) unknown) (unknown) (no (unknown) (unknown) Review of Systems (units (unknown) date) unknown) (unknown) (no (unknown) (unknown) SKIN: Denies rash, (units (unknown) date) skin lesions, or unknown) other feels skin is dry (unknown) (no (unknown) (unknown) SKIN: No rash or (units (unknown) date) erythema of visible unknown) areas dry skin noted (unknown) (no (unknown) (unknown) She admits to (units ( unknown) date) flatulence, urge to unknown) defecate, but not much comes out (unknown) (no (unknown) (unknown) She does not take (units (unknown) date) blood thinners, but unknown) on low dose ASA (unknown) (no (unknown) (unknown) She sees multiple (units (unknown) date) specialists, unknown) cardiology, nephrology, oncology, has a close (unknown) (no (unknown) (unknown) She states for (units (unknown) date) about 1 week she unknown) noticed some weight abdominal pain initially (unknown) (no (unknown) (unknown) Signed By: (units (unk nown) date) unknown) (unknown) (no (unknown) (unknown) Small right-sided (units (unknown) date) pleural effusion. unknown) (unknown) (no (unknown) (unknown) Smoking Status: (units (unknown) date) Former smoker unknown) (unknown) (no (unknown) (unknown) Social History (units (unknown) date) (Reviewed 12/13/22 unknown) @ 22:22 by Olga Talbert PA-C) (unknown) (no (unknown) (unknown) Sodium (137-145) (units (unknown) date) mmol/L unknown) (unknown) (no (unknown) (unknown) Sodium 138 (units (unk nown) date) (137-145) mmol/L unknown) (unknown) (no (unknown) (unknown) Sodium Chloride (units (unknown) date) (Normal Saline unknown) 0.9%) 500 mls @ 1,000 mls/hr IV BOLUS ONE (unknown) (no (unknown) (unknown) Source: patient (units (unknown) date) unknown) (unknown) (no (unknown) (unknown) Stand Alone Forms: (units (unknown) date) Patient Portal/API unknown) (unknown) (no (unknown) (unknown) Stated Complaint: (units (unknown) date) Constipation no BM unknown) x7days (unknown) (no (unknown) (unknown) Stop: 12/13/22 (units (unknown) date) 14:39 unknown) (unknown) (no (unknown) (unknown) Stop: 12/13/22 (units (unknown) date) 15:45 unknown) (unknown) (no (unknown) (unknown) Substance Use (units ( unknown) date) Type: does not use unknown) (unknown) (no (unknown) (unknown) Temperature 97.7 F (units (unknown) date) 12/13/22 10:16 unknown) (unknown) (no (unknown) (unknown) Time Seen by (units (u nknown) date) Provider: 12/13/22 unknown) 12:32 (unknown) (no (unknown) (unknown) Total Bilirubin (units (unknown) date) (0.2-1.3) mg/dL unknown) (unknown) (no (unknown) (unknown) Total Bilirubin (units (unknown) date) 0.9 (0.2-1.3) mg/dL unknown) (unknown) (no (unknown) (unknown) Total Creatine (units (unknown) date) Kinase (30-135) U/L unknown) (unknown) (no (unknown) (unknown) Total Creatine (units (unknown) date) Kinase 150 H unknown) (30-135) U/L (unknown) (no (unknown) (unknown) Total Protein (units ( unknown) date) (6.3-8.2) g/dL unknown) (unknown) (no (unknown) (unknown) Total Protein 7.7 (units (unknown) date) (6.3-8.2) g/dL unknown) (unknown) (no (unknown) (unknown) Troponin I (units (unk nown) date) (0.01-0.034) ng/mL unknown) (unknown) (no (unknown) (unknown) Troponin I 0.030 (units (unknown) date) (0.01-0.034) ng/mL unknown) (unknown) (no (unknown) (unknown) Ur Culture (units (unk nown) date) Indicated? Specimen unknown) cultured (unknown) (no (unknown) (unknown) Ur Culture (units (unk nown) date) Indicated? unknown) (unknown) (no (unknown) (unknown) Ur Leukocyte (units (u nknown) date) Esterase (NEGATIVE) unknown) (unknown) (no (unknown) (unknown) Ur Leukocyte (units (u nknown) date) Esterase 1+ H unknown) (NEGATIVE) (unknown) (no (unknown) (unknown) Ur Specific (units (un known) date) [place] unknown) (1.000-1.035) (unknown) (no (unknown) (unknown) Ur Specific (units (un known) date) [place] 1.010 unknown) (1.000-1.035) (unknown) (no (unknown) (unknown) Ur Squamous Epith (units (unknown) date) Cells (0-5/HPF) unknown) (unknown) (no (unknown) (unknown) Ur Squamous Epith (units (unknown) date) Cells 1-5 /hpf unknown) (0-5/HPF) (unknown) (no (unknown) (unknown) Urinalysis and (units (unknown) date) Microscopic Stat unknown) (unknown) (no (unknown) (unknown) Urine Appearance (units (unknown) date) Clear unknown) (unknown) (no (unknown) (unknown) Urine Appearance (units (unknown) date) unknown) (unknown) (no (unknown) (unknown) Urine Bacteria (units (unknown) date) (None) unknown) (unknown) (no (unknown) (unknown) Urine Bacteria Few (units (unknown) date) (2-10) H (None) unknown) (unknown) (no (unknown) (unknown) Urine Bilirubin (units (unknown) date) (NEGATIVE) unknown) (unknown) (no (unknown) (unknown) Urine Bilirubin (units (unknown) date) Negative (NEGATIVE) unknown) (unknown) (no (unknown) (unknown) Urine Color Yellow (units (unknown) date) unknown) (unknown) (no (unknown) (unknown) Urine Color (units (un known) date) unknown) (unknown) (no (unknown) (unknown) Urine Culture Stat (units (unknown) date) unknown) (unknown) (no (unknown) (unknown) Urine Dip (units (unkn own) date) unknown) (unknown) (no (unknown) (unknown) Urine Glucose (UA) (units (unknown) date) (Negative) g/dL unknown) (unknown) (no (unknown) (unknown) Urine Glucose (UA) (units (unknown) date) Negative (Negative) unknown) g/dL (unknown) (no (unknown) (unknown) Urine Ketones (units ( unknown) date) (NEGATIVE) unknown) (unknown) (no (unknown) (unknown) Urine Ketones (units ( unknown) date) Negative (NEGATIVE) unknown) (unknown) (no (unknown) (unknown) Urine Nitrate (units ( unknown) date) (Negative) unknown) (unknown) (no (unknown) (unknown) Urine Nitrate (units ( unknown) date) Negative (Negative) unknown) (unknown) (no (unknown) (unknown) Urine Occult Blood (units (unknown) date) (Negative) unknown) (unknown) (no (unknown) (unknown) Urine Occult Blood (units (unknown) date) Negative (Negative) unknown) (unknown) (no (unknown) (unknown) Urine Protein (units ( unknown) date) (Negative) unknown) (unknown) (no (unknown) (unknown) Urine Protein 1+ H (units (unknown) date) (Negative) unknown) (unknown) (no (unknown) (unknown) Urine RBC (units (unkn own) date) (0-5/HPF) unknown) (unknown) (no (unknown) (unknown) Urine RBC 0-1/hpf (units (unknown) date) (0-5/HPF) unknown) (unknown) (no (unknown) (unknown) Urine Specific (units (unknown) date) [place] 1.01 unknown) (unknown) (no (unknown) (unknown) Urine Urobilinogen (units (unknown) date) (0.2) E.U./dL unknown) (unknown) (no (unknown) (unknown) Urine Urobilinogen (units (unknown) date) 1.0 (0.2) E.U./dL unknown) (unknown) (no (unknown) (unknown) Urine WBC (units (unkn own) date) (0-5/HPF) unknown) (unknown) (no (unknown) (unknown) Urine WBC 1-5/hpf (units (unknown) date) (0-5/HPF) unknown) (unknown) (no (unknown) (unknown) Urine pH (4.5-8.0) (units (unknown) date) unknown) (unknown) (no (unknown) (unknown) Urine pH 7.0 (units (u nknown) date) (4.5-8.0) unknown) (unknown) (no (unknown) (unknown) Vital Signs - 8 hr (units (unknown) date) unknown) (unknown) (no (unknown) (unknown) Vital Signs (units (un known) date) unknown) (unknown) (no (unknown) (unknown) Vital signs: (units (u nknown) date) unknown) (unknown) (no (unknown) (unknown) WBC (4.5-11.0) (units (unknown) date) X103/uL unknown) (unknown) (no (unknown) (unknown) WBC 5.3 (4.5-11.0) (units (unknown) date) X103/uL unknown) (unknown) (no (unknown) (unknown) [Embedded Image (units (unknown) date) Not Available] unknown) (unknown) (no (unknown) (unknown) acute distress. 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 mastectomy, (unknown) (no (unknown) (unknown) alcohol intake (units (unknown) date) frequency: unknown) holidays/special occasions only (unknown) (no (unknown) (unknown) alcohol intake: (units (unknown) date) current unknown) (unknown) (no (unknown) (unknown) allopurinol 100 mg (units (unknown) date) tablet 100 mg PO unknown) DAILY 10/15/22 10/15/22 (unknown) (no (unknown) (unknown) allopurinol 100 mg (units (unknown) date) tablet unknown) (unknown) (no (unknown) (unknown) also has poor (units ( unknown) date) renal function, she unknown) is on multi drug regimen for her many medical (unknown) (no (unknown) (unknown) anastrozole 1 mg (units (unknown) date) tablet 1 mg PO unknown) DAILY 10/15/22 10/15/22 (unknown) (no (unknown) (unknown) anastrozole 1 mg (units (unknown) date) tablet unknown) (unknown) (no (unknown) (unknown) and believes she (units (unknown) date) has a constipation, unknown) no melena. (unknown) (no (unknown) (unknown) and then continue (units (unknown) date) with your usual unknown) dose 40 mg daily unless it would be changed (unknown) (no (unknown) (unknown) aspirin 81 mg (units ( unknown) date) Capsule unknown) (unknown) (no (unknown) (unknown) aspirin 81 mg (units ( unknown) date) capsule 81 mg PO unknown) DAILY 10/15/22 10/15/22 (unknown) (no (unknown) (unknown) atorvastatin 40 mg (units (unknown) date) tablet 40 mg PO unknown) BEDTIME 10/15/22 10/15/22 (unknown) (no (unknown) (unknown) atorvastatin 40 mg (units (unknown) date) tablet unknown) (unknown) (no (unknown) (unknown) by your (units (unkno wn) date) hand bulldozer or unknown) primary care provider (unknown) (no (unknown) (unknown) cardiac enzymes (units (unknown) date) were NL however BNP unknown) is high suggesting exacerbation of her CHF (unknown) (no (unknown) (unknown) concerning (units (unk nown) date) symptoms, such as unknown) Worsening shortness of breath,fever greater than (unknown) (no (unknown) (unknown) conditions (units (unk nown) date) unknown) (unknown) (no (unknown) (unknown) device (units (o wn) date) unknown) (unknown) (no (unknown) (unknown) dizziness. (units (unk nown) date) unknown) (unknown) (no (unknown) (unknown) edema, (units (unkno wn) date) unknown) (unknown) (no (unknown) (unknown) emergency room (units (unknown) date) with complaints of unknown) constipation. (unknown) (no (unknown) (unknown) failure, no acute (units (unknown) date) intra-abdominal unknown) findings. (unknown) (no (unknown) (unknown) ferrous sulfate (units (unknown) date) 325 mg (65 mg 325 unknown) mg PO DAILY 10/15/22 10/15/22 (unknown) (no (unknown) (unknown) ferrous sulfate (units (unknown) date) 325 mg (65 mg iron) unknown) Tablet (unknown) (no (unknown) (unknown) fluticasone 500 (units (unknown) date) mcg-salmeterol 50 1 unknown) inh inhalation BID 10/15/22 10/15/22 (unknown) (no (unknown) (unknown) fluticasone (units (un known) date) propion-salmeterol unknown) [Advair Diskus] 500-50 mcg/dose blister with (unknown) (no (unknown) (unknown) follow with her (units (unknown) date) PCP, whom she is unknown) planningto see tomorrow (unknown) (no (unknown) (unknown) for an (units (unkno wn) date) appointment. Let unknown) them know you were seen in the Emergency Department and (unknown) (no (unknown) (unknown) for viral (units (unkn own) date) pneumonia (COVID-19 unknown) in October 2022) exacerbation of CHF presents to (unknown) (no (unknown) (unknown) gentamicin Allergy (units (unknown) date) Verified 10/15/22 unknown) 17:02 (unknown) (no (unknown) (unknown) her appetite was (units (unknown) date) poor as well. unknown) (unknown) (no (unknown) (unknown) household members: (units (unknown) date) spouse unknown) (unknown) (no (unknown) (unknown) however for next 2 (units (unknown) date) days please unknown) increase the dose of the torsemide to 40 (unknown) (no (unknown) (unknown) icterus. No (units (un known) date) injection or unknown) drainage. (unknown) (no (unknown) (unknown) if constipation (units (unknown) date) continues to be a unknown) problem, try stool softeners, occasional (unknown) (no (unknown) (unknown) in turn can (units (un known) date) trigger worsening unknown) shortness of breath and dyspnea on exertion as (unknown) (no (unknown) (unknown) including lung (units (unknown) date) cancer, status post unknown) partial lobectomy right lung, treated with (unknown) (no (unknown) (unknown) including mitral (units (unknown) date) valve replacement, unknown) congestive heart failure, recent admission (unknown) (no (unknown) (unknown) inhalation (Advair (units (unknown) date) Diskus) unknown) (unknown) (no (unknown) (unknown) iron) tablet (units (u nknown) date) unknown) (unknown) (no (unknown) (unknown) is (units (unkno wn) date) unknown) (unknown) (no (unknown) (unknown) labs reviewed (units ( unknown) date) patient has CRD st unknown) IV, chronic anemia and now thrombocytopenia (unknown) (no (unknown) (unknown) levothyroxine 100 (units (unknown) date) mcg tablet 100 mcg unknown) PO DAILY 10/15/22 10/15/22 (unknown) (no (unknown) (unknown) levothyroxine 100 (units (unknown) date) mcg tablet unknown) (unknown) (no (unknown) (unknown) magnesium chloride (units (unknown) date) 64 mg 64 mg PO unknown) DAILY 10/15/22 10/15/22 (unknown) (no (unknown) (unknown) magnesium chloride (units (unknown) date) 64 mg Tablet unknown) Extended Release (unknown) (no (unknown) (unknown) mcg/dose blistr (units (unknown) date) powdr for unknown) (unknown) (no (unknown) (unknown) metoprolol (units (unk nown) date) succinate 100 mg unknown) 100 mg PO DAILY #90 tabs 10/18/22 (unknown) (no (unknown) (unknown) metoprolol (units (unk nown) date) succinate 100 mg unknown) tablet extended release 24 hr (unknown) (no (unknown) (unknown) mg twice daily (units (unknown) date) unknown) (unknown) (no (unknown) (unknown) mid trunk obesity (units (unknown) date) noted unknown) (unknown) (no (unknown) (unknown) negotiating steps (units (unknown) date) with some dyspnea unknown) on excertion (unknown) (no (unknown) (unknown) no incontinence, (units (unknown) date) hematuria, urinary unknown) retention. (unknown) (no (unknown) (unknown) organomegaly (units (u nknown) date) unknown) (unknown) (no (unknown) (unknown) patient has very (units (unknown) date) little bowel unknown) movement, which was mostly soft. She did admit (unknown) (no (unknown) (unknown) polyp removed. (units (unknown) date) unknown) (unknown) (no (unknown) (unknown) radiation and now (units (unknown) date) on anastrozole unknown) (both diagnosis and treatment took place in (unknown) (no (unknown) (unknown) record of today's (units (unknown) date) note if your PCP is unknown) in our system (unknown) (no (unknown) (unknown) seizures, (units (unkn own) date) incoordination. unknown) (unknown) (no (unknown) (unknown) senna laxative. (units (unknown) date) unknown) (unknown) (no (unknown) (unknown) settled in the (units ( unknown) date) midback, also she unknown) has had sensation of bloatedness, low appetite. (unknown) (no (unknown) (unknown) significant (units (un known) date) improvement unknown) (unknown) (no (unknown) (unknown) started in right (units (unknown) date) upper quadrant then unknown) migrated to left upper quadrant, then (unknown) (no (unknown) (unknown) suspected. (units (unk nown) date) unknown) (unknown) (no (unknown) (unknown) symptoms (units (unkno wn) date) unknown) (unknown) (no (unknown) (unknown) tablet,extended (units (unknown) date) release 24 hr unknown) (unknown) (no (unknown) (unknown) tablet,extended (units (unknown) date) release unknown) (unknown) (no (unknown) (unknown) that we ask that (units (unknown) date) you be seen in unknown) follow up. We will electronically transmit a (unknown) (no (unknown) (unknown) the patient is 72 (units (unknown) date) years old unknown) female, with extensive medical history (unknown) (no (unknown) (unknown) tonsillar (units (unkn own) date) hypertrophy or unknown) exudate. Airway patent. (unknown) (no (unknown) (unknown) torsemide 20 mg (units (unknown) date) tablet 40 mg PO unknown) DAILY 10/15/22 10/15/22 (unknown) (no (unknown) (unknown) torsemide 20 mg (units (unknown) date) tablet unknown) (unknown) (no (unknown) (unknown) unspecified (units (un known) date) unknown) (unknown) (no (unknown) (unknown) weight. she (units (un known) date) describes her bowel unknown) habits as regular however within past week, (unknown) (no (unknown) (unknown) well as anemia, (units (unknown) date) which also could be unknown) a culprit of your symptoms. Result panel 193 (unknown) (no (unknown) (unknown) (no value) (units (unk nown) date) unknown) (unknown) (no (unknown) (unknown) <Electronically (units (unknown) date) signed by Olga unknown) P.A-C Yarczower> (unknown) (no (unknown) (unknown) *Please continue (units (unknown) date) to take your unknown) regular medications as directed. (unknown) (no (unknown) (unknown) *Please follow up (units (unknown) date) with your primary unknown) care provider in as soon as possible call (unknown) (no (unknown) (unknown) *Return to (units (unk nown) date) Emergency unknown) Department if you should have any new, worsening or (unknown) (no (unknown) (unknown) *What to do: (units (u nknown) date) unknown) (unknown) (no (unknown) (unknown) *You have been (units (unknown) date) diagnosed with unknown) Exacerbation of congestive heart failure which (unknown) (no (unknown) (unknown) 12/13/22 12/13/22 (units (unknown) date) 12/13/22 unknown) Range/Units (unknown) (no (unknown) (unknown) 12/13/22 12/13/22 (units (unknown) date) Range/Units unknown) (unknown) (no (unknown) (unknown) 12/13/22 12:35 (units (unknown) date) unknown) (unknown) (no (unknown) (unknown) 12/13/22 13:15 (units (unknown) date) unknown) (unknown) (no (unknown) (unknown) 12/13/22 14:24 (units (unknown) date) unknown) (unknown) (no (unknown) (unknown) 12/13/22 15:35 (units (unknown) date) unknown) (unknown) (no (unknown) (unknown) 12/13/22 2235 (units ( unknown) date) unknown) (unknown) (no (unknown) (unknown) 12/13/22 (units (unkno wn) date) unknown) (unknown) (no (unknown) (unknown) 1 inh INHALATION (units (unknown) date) BID unknown) (unknown) (no (unknown) (unknown) 1 mg PO DAILY (units ( unknown) date) unknown) (unknown) (no (unknown) (unknown) 100 mcg PO DAILY (units (unknown) date) unknown) (unknown) (no (unknown) (unknown) 100 mg PO DAILY (units (unknown) date) Qty: 90 0RF unknown) (unknown) (no (unknown) (unknown) 100 mg PO DAILY (units (unknown) date) unknown) (unknown) (no (unknown) (unknown) 101 F, shaking (units (unknown) date) chills, worsening unknown) pain, persistent vomiting or other bothersome (unknown) (no (unknown) (unknown) 12:35 12:35 12:35 (units (unknown) date) unknown) (unknown) (no (unknown) (unknown) 12:35 13:15 (units (un known) date) unknown) (unknown) (no (unknown) (unknown) 14:30 12/13/22 (units (unknown) date) unknown) (unknown) (no (unknown) (unknown) 14:51 12/13/22 (units (unknown) date) unknown) (unknown) (no (unknown) (unknown) 14:51 (units (unkno wn) date) unknown) (unknown) (no (unknown) (unknown) 15:00 12/13/22 (units (unknown) date) unknown) (unknown) (no (unknown) (unknown) 15:01 12/13/22 (units (unknown) date) unknown) (unknown) (no (unknown) (unknown) 15:01 (units (unkno wn) date) unknown) (unknown) (no (unknown) (unknown) 15:30 12/13/22 (units (unknown) date) unknown) (unknown) (no (unknown) (unknown) 15:31 12/13/22 (units (unknown) date) unknown) (unknown) (no (unknown) (unknown) 15:31 (units (unkno wn) date) unknown) (unknown) (no (unknown) (unknown) 16:01 12/13/22 (units (unknown) date) unknown) (unknown) (no (unknown) (unknown) 16:30 12/13/22 (units (unknown) date) unknown) (unknown) (no (unknown) (unknown) 17:18 (units (unkno wn) date) unknown) (unknown) (no (unknown) (unknown) 17:19 12/13/22 (units (unknown) date) unknown) (unknown) (no (unknown) (unknown) 17:25 (units (unkno wn) date) unknown) (unknown) (no (unknown) (unknown) 2018 ), she (units (un known) date) follows routinely unknown) with her oncologist, also cardiac history (unknown) (no (unknown) (unknown) 3097 (units (unkno wn) date) unknown) (unknown) (no (unknown) (unknown) 325 mg PO DAILY (units (unknown) date) unknown) (unknown) (no (unknown) (unknown) 40 mg PO BEDTIME (units (unknown) date) unknown) (unknown) (no (unknown) (unknown) 40 mg PO DAILY (units (unknown) date) unknown) (unknown) (no (unknown) (unknown) 64 mg PO DAILY (units (unknown) date) unknown) (unknown) (no (unknown) (unknown) 81 mg PO DAILY (units (unknown) date) unknown) (unknown) (no (unknown) (unknown) ? (units (unkno wn) date) unknown) (unknown) (no (unknown) (unknown) ALT (<35) IU/L (units (unknown) date) unknown) (unknown) (no (unknown) (unknown) ALT 21 (<35) IU/L (units (unknown) date) unknown) (unknown) (no (unknown) (unknown) AST (14-36) IU/L (units (unknown) date) unknown) (unknown) (no (unknown) (unknown) AST 42 H (14-36) (units (unknown) date) IU/L unknown) (unknown) (no (unknown) (unknown) Abdominal x-ray: (units (unknown) date) unknown) (unknown) (no (unknown) (unknown) Activity (units (unkno wn) date) Restrictions/Additi unknown) onal Instructions: (unknown) (no (unknown) (unknown) Additional (units (unk nown) date) findings:? unknown) (unknown) (no (unknown) (unknown) Additionally (units (u nknown) date) patient is aware of unknown) being anemic for some time, takes iron. She (unknown) (no (unknown) (unknown) Admin: 12/13/22 (units (unknown) date) 14:15 Dose: 1,000 unknown) mls/hr (unknown) (no (unknown) (unknown) Admin: 12/13/22 (units (unknown) date) 16:10 Dose: 112 unknown) mls/hr (unknown) (no (unknown) (unknown) Age/Sex: 72 / F (units (unknown) date) unknown) (unknown) (no (unknown) (unknown) Albumin (3.5-5.0) (units (unknown) date) g/dL unknown) (unknown) (no (unknown) (unknown) Albumin 3.8 (units (un known) date) (3.5-5.0) g/dL unknown) (unknown) (no (unknown) (unknown) Albumin/Globulin (units (unknown) date) Ratio (1.0-2.8) unknown) (unknown) (no (unknown) (unknown) Albumin/Globulin (units (unknown) date) Ratio 1.0 (1.0-2.8) unknown) (unknown) (no (unknown) (unknown) Alkaline (units (unkno wn) date) Phosphatase unknown) (38-126) U/L (unknown) (no (unknown) (unknown) Alkaline (units (unkno wn) date) Phosphatase 130 H unknown) (38-126) U/L (unknown) (no (unknown) (unknown) Allergies (units (unkn own) date) unknown) (unknown) (no (unknown) (unknown) Allergy/AdvReac (units (unknown) date) Type Severity unknown) Reaction Status Date / Time (unknown) (no (unknown) (unknown) 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 Please correlate with (unknown) (no (unknown) (unknown) At least moderate (units (unknown) date) cardiomegaly.? unknown) (unknown) (no (unknown) (unknown) BACK: Nontender (units (unknown) date) without deformity unknown) or crepitance. No flank tenderness. (unknown) (no (unknown) (unknown) BUN (7-17) mg/dL (units (unknown) date) unknown) (unknown) (no (unknown) (unknown) BUN 37 H (7-17) (units (unknown) date) mg/dL unknown) (unknown) (no (unknown) (unknown) BUN/Creatinine (units (unknown) date) Ratio (6-22) unknown) (unknown) (no (unknown) (unknown) BUN/Creatinine (units (unknown) date) Ratio 15.7 (6-22) unknown) (unknown) (no (unknown) (unknown) Baso # (Auto) (units ( unknown) date) (0-100) /uL unknown) (unknown) (no (unknown) (unknown) Baso # (Auto) 0 (units (unknown) date) (0-100) /uL unknown) (unknown) (no (unknown) (unknown) Baso % (Auto) (units ( unknown) date) (0-2) % unknown) (unknown) (no (unknown) (unknown) Baso % (Auto) 0.6 (units (unknown) date) (0-2) % unknown) (unknown) (no (unknown) (unknown) Bedside Urine (units ( unknown) date) Bilirubin - unknown) Negative (unknown) (no (unknown) (unknown) Bedside Urine (units ( unknown) date) Glucose Negative unknown) (unknown) (no (unknown) (unknown) Bedside Urine (units ( unknown) date) Ketone - Negative unknown) (unknown) (no (unknown) (unknown) Bedside Urine (units ( unknown) date) Leukocytes +/- 15 unknown) (unknown) (no (unknown) (unknown) Bedside Urine (units ( unknown) date) Nitrite - Negative unknown) (unknown) (no (unknown) (unknown) Bedside Urine (units ( unknown) date) Occult Blood - unknown) Negative (unknown) (no (unknown) (unknown) Bedside Urine (units ( unknown) date) Protein + 30 unknown) (unknown) (no (unknown) (unknown) Bedside Urine (units ( unknown) date) Urobilinogen - unknown) Negative (unknown) (no (unknown) (unknown) Bedside Urine pH (units (unknown) date) 6.5 unknown) (unknown) (no (unknown) (unknown) Blood Pressure (units (unknown) date) 143/72 H unknown) (unknown) (no (unknown) (unknown) Blood Pressure (units (unknown) date) 163/75 H unknown) (unknown) (no (unknown) (unknown) Blood Pressure (units (unknown) date) 181/72 H unknown) (unknown) (no (unknown) (unknown) Blood Pressure (units (unknown) date) 181/75 H unknown) (unknown) (no (unknown) (unknown) Blood Pressure (units (unknown) date) 191/97 H 12/13/22 unknown) 10:16 (unknown) (no (unknown) (unknown) Blood Pressure (units (unknown) date) unknown) (unknown) (no (unknown) (unknown) Bones:? (units (unkno wn) date) Unremarkable.? unknown) Sternotomy wires are seen.? (unknown) (no (unknown) (unknown) CARDIOVASCULAR: (units (unknown) date) Denies chest pain, unknown) palpitations, admits to orthopnea, no leg (unknown) (no (unknown) (unknown) CARDIOVASCULAR: (units (unknown) date) Regular rate and unknown) rhythm without murmurs, gallops, or rubs. (unknown) (no (unknown) (unknown) CHF exacerbation (units (unknown) date) unknown) (unknown) (no (unknown) (unknown) CK-MB (CK-2) (units (u nknown) date) (<2.37) ng/mL unknown) (unknown) (no (unknown) (unknown) CK-MB (CK-2) 0.85 (units (unknown) date) (<2.37) ng/mL unknown) (unknown) (no (unknown) (unknown) CK-MB (CK-2) Rel (units (unknown) date) Index (1.5-5.0) % unknown) (unknown) (no (unknown) (unknown) CK-MB (CK-2) Rel (units (unknown) date) Index 0.6 L unknown) (1.5-5.0) % (unknown) (no (unknown) (unknown) CT abdomen pelvis (units (unknown) date) wo con Stat unknown) (unknown) (no (unknown) (unknown) CT scan - (units (unkn own) date) abdomen/pelvis: unknown) (unknown) (no (unknown) (unknown) Calcium (8.4-10.2) (units (unknown) date) mg/dL unknown) (unknown) (no (unknown) (unknown) Calcium 8.5 (units (un known) date) (8.4-10.2) mg/dL unknown) (unknown) (no (unknown) (unknown) Carbon Dioxide (units (unknown) date) (22-32) mmol/L unknown) (unknown) (no (unknown) (unknown) Carbon Dioxide 25 (units (unknown) date) (22-32) mmol/L unknown) (unknown) (no (unknown) (unknown) Chest [XR chest (units (unknown) date) 1V] Stat unknown) (unknown) (no (unknown) (unknown) Chest x-ray: (units (u nknown) date) unknown) (unknown) (no (unknown) (unknown) Chief Complaint: (units (unknown) date) Back Pain/Injury unknown) (unknown) (no (unknown) (unknown) Chloride (98-107) (units (unknown) date) mmol/L unknown) (unknown) (no (unknown) (unknown) Chloride 103 (units (u nknown) date) (98-107) mmol/L unknown) (unknown) (no (unknown) (unknown) Cholecystectomy (units (unknown) date) unknown) (unknown) (no (unknown) (unknown) Clinical (units (unkno wn) date) Impression: unknown) (unknown) (no (unknown) (unknown) Constipation, (units ( unknown) date) unspecified unknown) (unknown) (no (unknown) (unknown) Course (units (unkno wn) date) unknown) (unknown) (no (unknown) (unknown) Creatinine (units (unk nown) date) (0.52-1.04) mg/dL unknown) (unknown) (no (unknown) (unknown) Creatinine 2.35 H (units (unknown) date) (0.52-1.04) mg/dL unknown) (unknown) (no (unknown) (unknown) : 1950 (units (unknown) date) Acct:[id number] unknown) (unknown) (no (unknown) (unknown) Date of Service: (units (unknown) date) 12/13/22 unknown) (unknown) (no (unknown) (unknown) Departure (units (unkn own) date) unknown) (unknown) (no (unknown) (unknown) Discharge Plan (units (unknown) date) unknown) (unknown) (no (unknown) (unknown) Discontinued (units (u nknown) date) Medications unknown) (unknown) (no (unknown) (unknown) Discussed with (units (unknown) date) patient diagnosis unknown) (unknown) (no (unknown) (unknown) Documented By: KB (units (unknown) date) unknown) (unknown) (no (unknown) (unknown) Documented By: RLS (units (unknown) date) unknown) (unknown) (no (unknown) (unknown) ED Orders (units (unkn own) date) unknown) (unknown) (no (unknown) (unknown) EKG-12 Lead Stat (units (unknown) date) unknown) (unknown) (no (unknown) (unknown) ENT: Nose without (units (unknown) date) bleeding, purulent unknown) drainage. Throat without erythema, (unknown) (no (unknown) (unknown) ER Physician: (units ( unknown) date) Olga Talbert unknown) P.A-C (unknown) (no (unknown) (unknown) EXTREMITIES: No (units (unknown) date) edema LE unknown) (unknown) (no (unknown) (unknown) EYES: Pupils equal (units (unknown) date) round and reactive. unknown) Extraocular motions intact. No scleral (unknown) (no (unknown) (unknown) Emergency Report (units (unknown) date) unknown) (unknown) (no (unknown) (unknown) Eos # (Auto) (units (u nknown) date) (0-450) /uL unknown) (unknown) (no (unknown) (unknown) Eos # (Auto) 100 (units (unknown) date) (0-450) /uL unknown) (unknown) (no (unknown) (unknown) Eos % (Auto) (2-4) (units (unknown) date) % unknown) (unknown) (no (unknown) (unknown) Eos % (Auto) 2.3 (units (unknown) date) (2-4) % unknown) (unknown) (no (unknown) (unknown) Esterase (units (unkno wn) date) unknown) (unknown) (no (unknown) (unknown) Estimated GFR (units ( unknown) date) (>60) mL/min unknown) (unknown) (no (unknown) (unknown) Estimated GFR 21 L (units (unknown) date) (>60) mL/min unknown) (unknown) (no (unknown) (unknown) Exam Narrative: (units (unknown) date) unknown) (unknown) (no (unknown) (unknown) Exam (units (unkno wn) date) unknown) (unknown) (no (unknown) (unknown) Findings and (units (u nknown) date) discharge diagnosis unknown) discussed with patient/family followed by (unknown) (no (unknown) (unknown) Furosemide 60 mg/ (units (unknown) date) Sodium (Chloride) unknown) 56 mls @ 112 mls/hr IV NOW ONE (unknown) (no (unknown) (unknown) GASTROINTESTINAL: (units (unknown) date) Abdomen soft, unknown) non-tender, slightly distended. Normal BS no (unknown) (no (unknown) (unknown) GASTROINTESTINAL: (units (unknown) date) Denies nausea, unknown) vomiting, has had RUQ and LUQ abdominal pain, (unknown) (no (unknown) (unknown) GENERAL: 72 year (units (unknown) date) old patient appears unknown) stated age. Well-developed patient, in no (unknown) (no (unknown) (unknown) GENERAL: Denies (units (unknown) date) chills, admits to unknown) fatigue, no malaise, fever, sweats. (unknown) (no (unknown) (unknown) : Denies (units (unk nown) date) dysuria,has a unknown) frequency, takes diuretics (unknown) (no (unknown) (unknown) General (units (unkno wn) date) unknown) (unknown) (no (unknown) (unknown) Globulin (1.7-4.1) (units (unknown) date) g/dL unknown) (unknown) (no (unknown) (unknown) Globulin 3.9 (units (u nknown) date) (1.7-4.1) g/dL unknown) (unknown) (no (unknown) (unknown) Glucose (80-110) (units (unknown) date) mg/dL unknown) (unknown) (no (unknown) (unknown) Glucose 132 H (units ( unknown) date) (80-110) mg/dL unknown) (unknown) (no (unknown) (unknown) HEAD: Atraumatic. (units (unknown) date) Normocephalic. unknown) (unknown) (no (unknown) (unknown) HEENT: Denies (units ( unknown) date) sinus pain, ear unknown) pain, sore throat, difficulty swallowing, (unknown) (no (unknown) (unknown) HPI - Back (units (unk nown) date) Pain/Injury unknown) (unknown) (no (unknown) (unknown) HPI Narrative: (units (unknown) date) unknown) (unknown) (no (unknown) (unknown) Has had (units (unkno wn) date) colonoscopy many unknown) years ago, over 15 years she admits, with 1 benign (unknown) (no (unknown) (unknown) Hct (36-46) % (units ( unknown) date) unknown) (unknown) (no (unknown) (unknown) Hct 29.9 L (36-46) (units (unknown) date) % unknown) (unknown) (no (unknown) (unknown) He also reported (units (unknown) date) constipation. unknown) Imaging studies confirmed congestive heart (unknown) (no (unknown) (unknown) Heart failure (units ( unknown) date) type: unspecified unknown) Qualified Code(s): I50.9 - Heart failure, (unknown) (no (unknown) (unknown) Her SOB seem to (units (unknown) date) improve, she was unknown) able to ambulate on her own. (unknown) (no (unknown) (unknown) Hgb (12.0-16.0) (units (unknown) date) g/dL unknown) (unknown) (no (unknown) (unknown) Hgb 9.6 L (units (unkn own) date) (12.0-16.0) g/dL unknown) (unknown) (no (unknown) (unknown) History of Present (units (unknown) date) Illness unknown) (unknown) (no (unknown) (unknown) Home Medications (units (unknown) date) unknown) (unknown) (no (unknown) (unknown) Hysterectomy (units (u nknown) date) unknown) (unknown) (no (unknown) (unknown) IMPRESSION:? (units (u nknown) date) Cardiomegaly, unknown) pleural effusions, and interstitial prominence.? CHF (unknown) (no (unknown) (unknown) IMPRESSION:? No (units (unknown) date) significant bowel unknown) abnormality is seen. (unknown) (no (unknown) (unknown) IMPRESSION:? There (units (unknown) date) is only a mild unknown) amount of stool seen within the distal colon.? (unknown) (no (unknown) (unknown) Imaging Data (units (u nknown) date) unknown) (unknown) (no (unknown) (unknown) Imaging reviewed: (units (unknown) date) yes unknown) (unknown) (no (unknown) (unknown) Initial Vital (units ( unknown) date) Signs unknown) (unknown) (no (unknown) (unknown) Initial Vital (units ( unknown) date) Signs: unknown) (unknown) (no (unknown) (unknown) Instructions: DI (units (unknown) date) for Heart Failure unknown) (unknown) (no (unknown) (unknown) [facility] (units (unknown) date) [address] [place] [address] unknown) [place] [address] (unknown) (no (unknown) (unknown) Lab Data (units (unkno wn) date) unknown) (unknown) (no (unknown) (unknown) Lab Results (units (un known) date) unknown) (unknown) (no (unknown) (unknown) Lab results (units (un known) date) narrative: unknown) (unknown) (no (unknown) (unknown) Labs reviewed and (units (unknown) date) interpreted by unknown) myself: yes (unknown) (no (unknown) (unknown) Labs: (units (unkno wn) date) unknown) (unknown) (no (unknown) (unknown) Last Infusion: (units (unknown) date) 12/13/22 15:38 unknown) Dose: 0 mls/hr (unknown) (no (unknown) (unknown) Last Infusion: (units (unknown) date) 12/13/22 17:04 unknown) Dose: 0 mls/hr (unknown) (no (unknown) (unknown) Lipase (23-300) (units (unknown) date) U/L unknown) (unknown) (no (unknown) (unknown) Lipase 201 (units (unk nown) date) (23-300) U/L unknown) (unknown) (no (unknown) (unknown) Aramis Godfrey, (units (unknown) date) [Primary Care unknown) Provider] (unknown) (no (unknown) (unknown) Lymph # (Auto) (units (unknown) date) (1365-7155) /uL unknown) (unknown) (no (unknown) (unknown) Lymph # (Auto) (units (unknown) date) 1000 L (7505-1257) unknown) /uL (unknown) (no (unknown) (unknown) Lymph % (Auto) (units (unknown) date) (25-40) % unknown) (unknown) (no (unknown) (unknown) Lymph % (Auto) (units (unknown) date) 19.0 L (25-40) % unknown) (unknown) (no (unknown) (unknown) MCH (26-34) PG (units (unknown) date) unknown) (unknown) (no (unknown) (unknown) MCH 32.9 (26-34) (units (unknown) date) PG unknown) (unknown) (no (unknown) (unknown) MCHC (30-36) % (units (unknown) date) unknown) (unknown) (no (unknown) (unknown) MCHC 32.1 (30-36) (units (unknown) date) % unknown) (unknown) (no (unknown) (unknown) MCV (80-100) fL (units (unknown) date) unknown) (unknown) (no (unknown) (unknown) MCV 102.6 H (units (un known) date) (80-100) fL unknown) (unknown) (no (unknown) (unknown) MDM - Back (units (unk nown) date) Pain/Injury unknown) (unknown) (no (unknown) (unknown) MDM Narrative (units ( unknown) date) unknown) (unknown) (no (unknown) (unknown) MUSCULOSKELETAL: (units (unknown) date) denies weakness, unknown) joint pain, or bony pain (unknown) (no (unknown) (unknown) Macrocytosis 1+ H (units (unknown) date) unknown) (unknown) (no (unknown) (unknown) Macrocytosis (units (u nknown) date) unknown) (unknown) (no (unknown) (unknown) Medical decision (units (unknown) date) making narrative: unknown) (unknown) (no (unknown) (unknown) Medication (units (unk nown) date) Instructions unknown) Recorded Confirmed (unknown) (no (unknown) (unknown) Medication (units (unk nown) date) Instructions unknown) Recorded (unknown) (no (unknown) (unknown) Mild ascites. (units ( unknown) date) unknown) (unknown) (no (unknown) (unknown) Miscellaneous: No (units (unknown) date) inguinal hernias unknown) are seen. ? ? (unknown) (no (unknown) (unknown) Stone # (Auto) (units ( unknown) date) (0-900) /uL unknown) (unknown) (no (unknown) (unknown) Stone # (Auto) 800 (units (unknown) date) (0-900) /uL unknown) (unknown) (no (unknown) (unknown) Stone % (Auto) (units ( unknown) date) (3-14) % unknown) (unknown) (no (unknown) (unknown) Stone % (Auto) 16.0 (units (unknown) date) H (3-14) % unknown) (unknown) (no (unknown) (unknown) NECK: Trachea (units ( unknown) date) midline. Non tender unknown) (unknown) (no (unknown) (unknown) NEURO: AOx3. (units (u nknown) date) unknown) (unknown) (no (unknown) (unknown) NEUROLOGIC: Denies (units (unknown) date) weakness, headache, unknown) numbness, change in speech, confusion, (unknown) (no (unknown) (unknown) NT-Pro-B Natriuret (units (unknown) date) Pep (<125) pg/mL unknown) (unknown) (no (unknown) (unknown) NT-Pro-B Natriuret (units (unknown) date) Pep 4890 H (<125) unknown) pg/mL (unknown) (no (unknown) (unknown) Narrative (units (unkn own) date) unknown) (unknown) (no (unknown) (unknown) Narrative: (units (unk nown) date) unknown) (unknown) (no (unknown) (unknown) Neut # (Auto) (units ( unknown) date) (1812-7743) /uL unknown) (unknown) (no (unknown) (unknown) Neut # (Auto) 3300 (units (unknown) date) (8996-7877) /uL unknown) (unknown) (no (unknown) (unknown) Neut % (Auto) (units ( unknown) date) (50-75) % unknown) (unknown) (no (unknown) (unknown) Neut % (Auto) 62.1 (units (unknown) date) (50-75) % unknown) (unknown) (no (unknown) (unknown) No Action (units (unkn own) date) unknown) (unknown) (no (unknown) (unknown) No blood in stool (units (unknown) date) unknown) (unknown) (no (unknown) (unknown) No new medications (units (unknown) date) given unknown) (unknown) (no (unknown) (unknown) No significant (units (unknown) date) stool can be seen unknown) within the colon (unknown) (no (unknown) (unknown) Onset (ago): (units (u nknown) date) day(s) (7) unknown) (unknown) (no (unknown) (unknown) Ordered: (units (unkno wn) date) unknown) (unknown) (no (unknown) (unknown) Orders (units (unkno wn) date) unknown) (unknown) (no (unknown) (unknown) Oxygen Delivery (units (unknown) date) Method 12/13/22 unknown) 10:16 (unknown) (no (unknown) (unknown) PELVIS: (units (unkno wn) date) unknown) (unknown) (no (unknown) (unknown) PSYCHIATRIC: No (units (unknown) date) concerning unknown) psychosocial issues. (unknown) (no (unknown) (unknown) Patient (units (unkno wn) date) Disposition: Home unknown) (unknown) (no (unknown) (unknown) Patient History (units (unknown) date) unknown) (unknown) (no (unknown) (unknown) Patient also noted (units (unknown) date) she is more short unknown) of breath then usual, and has difficulty (unknown) (no (unknown) (unknown) Patient got (units (un known) date) alarmed about unknown) change in BM, and tried OTC miralax and colace wo (unknown) (no (unknown) (unknown) Patient states she (units (unknown) date) does not eat as unknown) much but she does have difficulty to Lose (unknown) (no (unknown) (unknown) Patient's symptoms (units (unknown) date) improved over unknown) duration of stay with above-stated therapies. (unknown) (no (unknown) (unknown) Patient: (units (unkno wn) date) Gómez Walls MR#: unknown) [id number] (unknown) (no (unknown) (unknown) Pelvic Nodes: (units ( unknown) date) Unremarkable. unknown) (unknown) (no (unknown) (unknown) Pelvic Organs: (units (unknown) date) This patient is unknown) status post hysterectomy. No adnexal masses are (unknown) (no (unknown) (unknown) Plt Count (units (unkn own) date) (150-400) X103/uL unknown) (unknown) (no (unknown) (unknown) Plt Count 86 L (units (unknown) date) (150-400) X103/uL unknown) (unknown) (no (unknown) (unknown) Postoperative and (units (unknown) date) degenerative unknown) changes are seen.? 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 (unknown) (no (unknown) (unknown) Pulse Oximetry 95 (units (unknown) date) 97 92 unknown) (unknown) (no (unknown) (unknown) Pulse Oximetry 96 (units (unknown) date) 12/13/22 10:16 unknown) (unknown) (no (unknown) (unknown) Pulse Oximetry 97 (units (unknown) date) 97 unknown) (unknown) (no (unknown) (unknown) Pulse Oximetry 97 (units (unknown) date) 98 unknown) (unknown) (no (unknown) (unknown) Pulse Oximetry 98 (units (unknown) date) 99 unknown) (unknown) (no (unknown) (unknown) Pulse Rate 60 (units ( unknown) date) 12/13/22 10:16 unknown) (unknown) (no (unknown) (unknown) Pulse Rate 63 63 (units (unknown) date) unknown) (unknown) (no (unknown) (unknown) Pulse Rate 63 64 (units (unknown) date) unknown) (unknown) (no (unknown) (unknown) Pulse Rate 65 65 (units (unknown) date) unknown) (unknown) (no (unknown) (unknown) Pulse Rate 69 (units ( unknown) date) unknown) (unknown) (no (unknown) (unknown) Pulse Rate 73 65 (units (unknown) date) 72 unknown) (unknown) (no (unknown) (unknown) Qualifiers: (units (un known) date) unknown) (unknown) (no (unknown) (unknown) RBC (4.0-5.2) (units ( unknown) date) X106/uL unknown) (unknown) (no (unknown) (unknown) RBC 2.92 L (units (unk nown) date) (4.0-5.2) X106/uL unknown) (unknown) (no (unknown) (unknown) RBC Morphology Not (units (unknown) date) Reportable unknown) (unknown) (no (unknown) (unknown) RBC Morphology (units (unknown) date) unknown) (unknown) (no (unknown) (unknown) RDW (11.6-14.8) % (units (unknown) date) unknown) (unknown) (no (unknown) (unknown) RDW 19.9 H (units (unk nown) date) (11.6-14.8) % unknown) (unknown) (no (unknown) (unknown) RESPIRATORY: (units (u nknown) date) admits to dyspnea, unknown) no cough, wheezing, hemoptysis, sputum. (unknown) (no (unknown) (unknown) RESPIRATORY: there (units (unknown) date) are scattered rales unknown) not cleared with cough (unknown) (no (unknown) (unknown) Radiologist's (units ( unknown) date) Impression: unknown) (unknown) (no (unknown) (unknown) Referrals: (units (unk nown) date) unknown) (unknown) (no (unknown) (unknown) Related Data (units (u nknown) date) unknown) (unknown) (no (unknown) (unknown) Respiratory Rate (units (unknown) date) 16 unknown) (unknown) (no (unknown) (unknown) Respiratory Rate (units (unknown) date) 18 12/13/22 10:16 unknown) (unknown) (no (unknown) (unknown) Respiratory Rate (units (unknown) date) 20 unknown) (unknown) (no (unknown) (unknown) Respiratory Rate (units (unknown) date) unknown) (unknown) (no (unknown) (unknown) Return precautions (units (unknown) date) discussed with unknown) patient/family whom verbalize understanding of (unknown) (no (unknown) (unknown) Review of Systems (units (unknown) date) unknown) (unknown) (no (unknown) (unknown) SKIN: Denies rash, (units (unknown) date) skin lesions, or unknown) other feels skin is dry (unknown) (no (unknown) (unknown) SKIN: No rash or (units (unknown) date) erythema of visible unknown) areas dry skin noted (unknown) (no (unknown) (unknown) She admits to (units ( unknown) date) flatulence, urge to unknown) defecate, but not much comes out (unknown) (no (unknown) (unknown) She does not take (units (unknown) date) blood thinners, but unknown) on low dose ASA (unknown) (no (unknown) (unknown) She sees multiple (units (unknown) date) specialists, unknown) cardiology, nephrology, oncology, has a close (unknown) (no (unknown) (unknown) She states for (units (unknown) date) about 1 week she unknown) noticed some weight abdominal pain initially (unknown) (no (unknown) (unknown) She was instructed (units (unknown) date) to follow up with unknown) her PCP, cardiology (unknown) (no (unknown) (unknown) Signed By: (units (unk nown) date) unknown) (unknown) (no (unknown) (unknown) Small right-sided (units (unknown) date) pleural effusion. unknown) (unknown) (no (unknown) (unknown) Small right-sided (units (unknown) date) pleural effusion.? unknown) (unknown) (no (unknown) (unknown) Smoking Status: (units (unknown) date) Former smoker unknown) (unknown) (no (unknown) (unknown) Social History (units (unknown) date) (Reviewed 12/13/22 unknown) @ 22:22 by Olga Talbert PA-C) (unknown) (no (unknown) (unknown) Sodium (137-145) (units (unknown) date) mmol/L unknown) (unknown) (no (unknown) (unknown) Sodium 138 (units (unk nown) date) (137-145) mmol/L unknown) (unknown) (no (unknown) (unknown) Sodium Chloride (units (unknown) date) (Normal Saline unknown) 0.9%) 500 mls @ 1,000 mls/hr IV BOLUS ONE (unknown) (no (unknown) (unknown) Source: patient (units (unknown) date) unknown) (unknown) (no (unknown) (unknown) Stand Alone Forms: (units (unknown) date) Patient Portal/API unknown) (unknown) (no (unknown) (unknown) Stated Complaint: (units (unknown) date) Constipation no BM unknown) x7days (unknown) (no (unknown) (unknown) Sternotomy (units (unk nown) date) unknown) (unknown) (no (unknown) (unknown) Stop: 12/13/22 (units (unknown) date) 14:39 unknown) (unknown) (no (unknown) (unknown) Stop: 12/13/22 (units (unknown) date) 15:45 unknown) (unknown) (no (unknown) (unknown) Substance Use (units ( unknown) date) Type: does not use unknown) (unknown) (no (unknown) (unknown) Temperature 97.7 F (units (unknown) date) 12/13/22 10:16 unknown) (unknown) (no (unknown) (unknown) Time Seen by (units (u nknown) date) Provider: 12/13/22 unknown) 12:32 (unknown) (no (unknown) (unknown) Total Bilirubin (units (unknown) date) (0.2-1.3) mg/dL unknown) (unknown) (no (unknown) (unknown) Total Bilirubin (units (unknown) date) 0.9 (0.2-1.3) mg/dL unknown) (unknown) (no (unknown) (unknown) Total Creatine (units (unknown) date) Kinase (30-135) U/L unknown) (unknown) (no (unknown) (unknown) Total Creatine (units (unknown) date) Kinase 150 H unknown) (30-135) U/L (unknown) (no (unknown) (unknown) Total Protein (units ( unknown) date) (6.3-8.2) g/dL unknown) (unknown) (no (unknown) (unknown) Total Protein 7.7 (units (unknown) date) (6.3-8.2) g/dL unknown) (unknown) (no (unknown) (unknown) Troponin I (units (unk nown) date) (0.01-0.034) ng/mL unknown) (unknown) (no (unknown) (unknown) Troponin I 0.030 (units (unknown) date) (0.01-0.034) ng/mL unknown) (unknown) (no (unknown) (unknown) Ur Culture (units (unk nown) date) Indicated? Specimen unknown) cultured (unknown) (no (unknown) (unknown) Ur Culture (units (unk nown) date) Indicated? unknown) (unknown) (no (unknown) (unknown) Ur Leukocyte (units (u nknown) date) Esterase (NEGATIVE) unknown) (unknown) (no (unknown) (unknown) Ur Leukocyte (units (u nknown) date) Esterase 1+ H unknown) (NEGATIVE) (unknown) (no (unknown) (unknown) Ur Specific (units (un known) date) [place] unknown) (1.000-1.035) (unknown) (no (unknown) (unknown) Ur Specific (units (un known) date) [place] 1.010 unknown) (1.000-1.035) (unknown) (no (unknown) (unknown) Ur Squamous Epith (units (unknown) date) Cells (0-5/HPF) unknown) (unknown) (no (unknown) (unknown) Ur Squamous Epith (units (unknown) date) Cells 1-5 /hpf unknown) (0-5/HPF) (unknown) (no (unknown) (unknown) Urinalysis and (units (unknown) date) Microscopic Stat unknown) (unknown) (no (unknown) (unknown) Urine Appearance (units (unknown) date) Clear unknown) (unknown) (no (unknown) (unknown) Urine Appearance (units (unknown) date) unknown) (unknown) (no (unknown) (unknown) Urine Bacteria (units (unknown) date) (None) unknown) (unknown) (no (unknown) (unknown) Urine Bacteria Few (units (unknown) date) (2-10) H (None) unknown) (unknown) (no (unknown) (unknown) Urine Bilirubin (units (unknown) date) (NEGATIVE) unknown) (unknown) (no (unknown) (unknown) Urine Bilirubin (units (unknown) date) Negative (NEGATIVE) unknown) (unknown) (no (unknown) (unknown) Urine Color Yellow (units (unknown) date) unknown) (unknown) (no (unknown) (unknown) Urine Color (units (un known) date) unknown) (unknown) (no (unknown) (unknown) Urine Culture Stat (units (unknown) date) unknown) (unknown) (no (unknown) (unknown) Urine Dip (units (unkn own) date) unknown) (unknown) (no (unknown) (unknown) Urine Glucose (UA) (units (unknown) date) (Negative) g/dL unknown) (unknown) (no (unknown) (unknown) Urine Glucose (UA) (units (unknown) date) Negative (Negative) unknown) g/dL (unknown) (no (unknown) (unknown) Urine Ketones (units ( unknown) date) (NEGATIVE) unknown) (unknown) (no (unknown) (unknown) Urine Ketones (units ( unknown) date) Negative (NEGATIVE) unknown) (unknown) (no (unknown) (unknown) Urine Nitrate (units ( unknown) date) (Negative) unknown) (unknown) (no (unknown) (unknown) Urine Nitrate (units ( unknown) date) Negative (Negative) unknown) (unknown) (no (unknown) (unknown) Urine Occult Blood (units (unknown) date) (Negative) unknown) (unknown) (no (unknown) (unknown) Urine Occult Blood (units (unknown) date) Negative (Negative) unknown) (unknown) (no (unknown) (unknown) Urine Protein (units ( unknown) date) (Negative) unknown) (unknown) (no (unknown) (unknown) Urine Protein 1+ H (units (unknown) date) (Negative) unknown) (unknown) (no (unknown) (unknown) Urine RBC (units (unkn own) date) (0-5/HPF) unknown) (unknown) (no (unknown) (unknown) Urine RBC 0-1/hpf (units (unknown) date) (0-5/HPF) unknown) (unknown) (no (unknown) (unknown) Urine Specific (units (unknown) date) [place] 1.01 unknown) (unknown) (no (unknown) (unknown) Urine Urobilinogen (units (unknown) date) (0.2) E.U./dL unknown) (unknown) (no (unknown) (unknown) Urine Urobilinogen (units (unknown) date) 1.0 (0.2) E.U./dL unknown) (unknown) (no (unknown) (unknown) Urine WBC (units (unkn own) date) (0-5/HPF) unknown) (unknown) (no (unknown) (unknown) Urine WBC 1-5/hpf (units (unknown) date) (0-5/HPF) unknown) (unknown) (no (unknown) (unknown) Urine pH (4.5-8.0) (units (unknown) date) unknown) (unknown) (no (unknown) (unknown) Urine pH 7.0 (units (u nknown) date) (4.5-8.0) unknown) (unknown) (no (unknown) (unknown) Vital Signs - 8 hr (units (unknown) date) unknown) (unknown) (no (unknown) (unknown) Vital Signs (units (un known) date) unknown) (unknown) (no (unknown) (unknown) Vital signs: (units (u nknown) date) unknown) (unknown) (no (unknown) (unknown) WBC (4.5-11.0) (units (unknown) date) X103/uL unknown) (unknown) (no (unknown) (unknown) WBC 5.3 (4.5-11.0) (units (unknown) date) X103/uL unknown) (unknown) (no (unknown) (unknown) [Embedded Image (units (unknown) date) Not Available] unknown) (unknown) (no (unknown) (unknown) acute distress. 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 mastectomy, (unknown) (no (unknown) (unknown) alcohol intake (units (unknown) date) frequency: unknown) holidays/special occasions only (unknown) (no (unknown) (unknown) alcohol intake: (units (unknown) date) current unknown) (unknown) (no (unknown) (unknown) allopurinol 100 mg (units (unknown) date) tablet 100 mg PO unknown) DAILY 10/15/22 10/15/22 (unknown) (no (unknown) (unknown) allopurinol 100 mg (units (unknown) date) tablet unknown) (unknown) (no (unknown) (unknown) also has poor (units ( unknown) date) renal function, she unknown) is on multi drug regimen for her many medical (unknown) (no (unknown) (unknown) anastrozole 1 mg (units (unknown) date) tablet 1 mg PO unknown) DAILY 10/15/22 10/15/22 (unknown) (no (unknown) (unknown) anastrozole 1 mg (units (unknown) date) tablet unknown) (unknown) (no (unknown) (unknown) and believes she (units (unknown) date) has a constipation, unknown) no melena. (unknown) (no (unknown) (unknown) and then continue (units (unknown) date) with your usual unknown) dose 40 mg daily unless it would be changed (unknown) (no (unknown) (unknown) apparently patient (units (unknown) date) has several issues unknown) including exacerbation of CHF which may (unknown) (no (unknown) (unknown) aspirin 81 mg (units ( unknown) date) Capsule unknown) (unknown) (no (unknown) (unknown) aspirin 81 mg (units ( unknown) date) capsule 81 mg PO unknown) DAILY 10/15/22 10/15/22 (unknown) (no (unknown) (unknown) atorvastatin 40 mg (units (unknown) date) tablet 40 mg PO unknown) BEDTIME 10/15/22 10/15/22 (unknown) (no (unknown) (unknown) atorvastatin 40 mg (units (unknown) date) tablet unknown) (unknown) (no (unknown) (unknown) by your (units (unkno wn) date) hand bulldozer or unknown) primary care provider (unknown) (no (unknown) (unknown) cardiac enzymes (units (unknown) date) were NL however BNP unknown) is high suggesting exacerbation of her CHF (unknown) (no (unknown) (unknown) cellulitis. (units (un known) date) unknown) (unknown) (no (unknown) (unknown) concerning (units (unk nown) date) symptoms, such as unknown) Worsening shortness of breath,fever greater than (unknown) (no (unknown) (unknown) conditions (units (unk nown) date) unknown) (unknown) (no (unknown) (unknown) continue to work (units (unknown) date) with her unknown) oncologist, monitor anemia and thrombocytopenia (unknown) (no (unknown) (unknown) device (units (unkno wn) date) unknown) (unknown) (no (unknown) (unknown) diagnosis and plan (units (unknown) date) unknown) (unknown) (no (unknown) (unknown) dizziness. (units (unk nown) date) unknown) (unknown) (no (unknown) (unknown) edema, (units (unkno wn) date) unknown) (unknown) (no (unknown) (unknown) emergency room (units (unknown) date) with complaints of unknown) constipation. (unknown) (no (unknown) (unknown) explain her (units (un known) date) dyspnea, as well as unknown) anemia (unknown) (no (unknown) (unknown) failure, no acute (units (unknown) date) intra-abdominal unknown) findings. (unknown) (no (unknown) (unknown) ferrous sulfate (units (unknown) date) 325 mg (65 mg 325 unknown) mg PO DAILY 10/15/22 10/15/22 (unknown) (no (unknown) (unknown) ferrous sulfate (units (unknown) date) 325 mg (65 mg iron) unknown) Tablet (unknown) (no (unknown) (unknown) fluticasone 500 (units (unknown) date) mcg-salmeterol 50 1 unknown) inh inhalation BID 10/15/22 10/15/22 (unknown) (no (unknown) (unknown) fluticasone (units (un known) date) propion-salmeterol unknown) [Advair Diskus] 500-50 mcg/dose blister with (unknown) (no (unknown) (unknown) follow with her (units (unknown) date) PCP, whom she is unknown) planningto see tomorrow (unknown) (no (unknown) (unknown) for an (units (unkno wn) date) appointment. Let unknown) them know you were seen in the Emergency Department and (unknown) (no (unknown) (unknown) for viral (units (unkn own) date) pneumonia (COVID-19 unknown) in October 2022) exacerbation of CHF presents to (unknown) (no (unknown) (unknown) gentamicin Allergy (units (unknown) date) Verified 10/15/22 unknown) 17:02 (unknown) (no (unknown) (unknown) her appetite was (units (unknown) date) poor as well. unknown) (unknown) (no (unknown) (unknown) her symptoms (units (u nknown) date) unknown) (unknown) (no (unknown) (unknown) household members: (units (unknown) date) spouse unknown) (unknown) (no (unknown) (unknown) however for next 2 (units (unknown) date) days please unknown) increase the dose of the torsemide to 40 (unknown) (no (unknown) (unknown) icterus. No (units (un known) date) injection or unknown) drainage. (unknown) (no (unknown) (unknown) if constipation (units (unknown) date) continues to be a unknown) problem, try stool softeners, occasional (unknown) (no (unknown) (unknown) in turn can (units (un known) date) trigger worsening unknown) shortness of breath and dyspnea on exertion as (unknown) (no (unknown) (unknown) including lung (units (unknown) date) cancer, status post unknown) partial lobectomy right lung, treated with (unknown) (no (unknown) (unknown) including mitral (units (unknown) date) valve replacement, unknown) congestive heart failure, recent admission (unknown) (no (unknown) (unknown) inhalation (Advair (units (unknown) date) Diskus) unknown) (unknown) (no (unknown) (unknown) iron) tablet (units (u nknown) date) unknown) (unknown) (no (unknown) (unknown) is (units (unkno wn) date) unknown) (unknown) (no (unknown) (unknown) labs reviewed (units ( unknown) date) patient has CRD st unknown) IV, chronic anemia and now thrombocytopenia (unknown) (no (unknown) (unknown) levothyroxine 100 (units (unknown) date) mcg tablet 100 mcg unknown) PO DAILY 10/15/22 10/15/22 (unknown) (no (unknown) (unknown) levothyroxine 100 (units (unknown) date) mcg tablet unknown) (unknown) (no (unknown) (unknown) magnesium chloride (units (unknown) date) 64 mg 64 mg PO unknown) DAILY 10/15/22 10/15/22 (unknown) (no (unknown) (unknown) magnesium chloride (units (unknown) date) 64 mg Tablet unknown) Extended Release (unknown) (no (unknown) (unknown) mcg/dose blistr (units (unknown) date) powdr for unknown) (unknown) (no (unknown) (unknown) metoprolol (units (unk nown) date) succinate 100 mg unknown) 100 mg PO DAILY #90 tabs 10/18/22 (unknown) (no (unknown) (unknown) metoprolol (units (unk nown) date) succinate 100 mg unknown) tablet extended release 24 hr (unknown) (no (unknown) (unknown) mg twice daily (units (unknown) date) unknown) (unknown) (no (unknown) (unknown) mid trunk obesity (units (unknown) date) noted unknown) (unknown) (no (unknown) (unknown) negotiating steps (units (unknown) date) with some dyspnea unknown) on excertion (unknown) (no (unknown) (unknown) no clear etiology (units (unknown) date) of her unknown) constipation, acute intra abdominal findings to explain (unknown) (no (unknown) (unknown) no incontinence, (units (unknown) date) hematuria, urinary unknown) retention. (unknown) (no (unknown) (unknown) organomegaly (units (u nknown) date) unknown) (unknown) (no (unknown) (unknown) patient has very (units (unknown) date) little bowel unknown) movement, which was mostly soft. She did admit (unknown) (no (unknown) (unknown) patient was given (units (unknown) date) IV diuretics, and unknown) was able to void. (unknown) (no (unknown) (unknown) polyp removed. (units (unknown) date) unknown) (unknown) (no (unknown) (unknown) radiation and now (units (unknown) date) on anastrozole unknown) (both diagnosis and treatment took place in (unknown) (no (unknown) (unknown) record of today's (units (unknown) date) note if your PCP is unknown) in our system (unknown) (no (unknown) (unknown) seen.? (units (unkno wn) date) unknown) (unknown) (no (unknown) (unknown) seizures, (units (unkn own) date) incoordination. unknown) (unknown) (no (unknown) (unknown) senna laxative. (units (unknown) date) unknown) (unknown) (no (unknown) (unknown) settled in the (units ( unknown) date) midback, also she unknown) has had sensation of bloatedness, low appetite. (unknown) (no (unknown) (unknown) significant (units (un known) date) improvement unknown) (unknown) (no (unknown) (unknown) started in right (units (unknown) date) upper quadrant then unknown) migrated to left upper quadrant, then (unknown) (no (unknown) (unknown) suspected. (units (unk nown) date) unknown) (unknown) (no (unknown) (unknown) symptoms (units (unkno wn) date) unknown) (unknown) (no (unknown) (unknown) tablet,extended (units (unknown) date) release 24 hr unknown) (unknown) (no (unknown) (unknown) tablet,extended (units (unknown) date) release unknown) (unknown) (no (unknown) (unknown) that we ask that (units (unknown) date) you be seen in unknown) follow up. We will electronically transmit a (unknown) (no (unknown) (unknown) the patient is 72 (units (unknown) date) years old unknown) female, with extensive medical history (unknown) (no (unknown) (unknown) tonsillar (units (unkn own) date) hypertrophy or unknown) exudate. Airway patent. (unknown) (no (unknown) (unknown) torsemide 20 mg (units (unknown) date) tablet 40 mg PO unknown) DAILY 10/15/22 10/15/22 (unknown) (no (unknown) (unknown) torsemide 20 mg (units (unknown) date) tablet unknown) (unknown) (no (unknown) (unknown) unspecified (units (un known) date) unknown) (unknown) (no (unknown) (unknown) verbalization of (units (unknown) date) understanding unknown) (unknown) (no (unknown) (unknown) weight. she (units (un known) date) describes her bowel unknown) habits as regular however within past week, (unknown) (no (unknown) (unknown) well as anemia, (units (unknown) date) which also could be unknown) a culprit of your symptoms. Result panel 194 (unknown) (no date) (unknown) (unknown) No growth. 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 Deemed unknown) unsuitable for further studies. Result panel 196 (unknown) (no (unknown) (unknown) (no value) (units (unk nown) date) unknown) (unknown) (no (unknown) (unknown) <Electronically (units (unknown) date) signed by Jennifer unknown) Saloni Amaro.O.> (unknown) (no (unknown) (unknown) <Electronically (units (unknown) date) signed by Jennifer unknown) Prem Guallpa.OAgustin> (unknown) (no (unknown) (unknown) <Electronically (units (unknown) date) signed by Olga unknown) Guille Talbert> (unknown) (no (unknown) (unknown) <Jennifer Guallpa, (units (unknown) date) DO - Last Filed: unknown) 12/16/22 19:54> (unknown) (no (unknown) (unknown) <Olga Talbert, (units (unknown) date) DARIUS - Last Filed: unknown) 12/13/22 22:35> (unknown) (no (unknown) (unknown) <cosigner> (units (unk nown) date) unknown) (unknown) (no (unknown) (unknown) *Please continue (units (unknown) date) to take your unknown) regular medications as directed. (unknown) (no (unknown) (unknown) *Please follow up (units (unknown) date) with your primary unknown) care provider in as soon as possible call (unknown) (no (unknown) (unknown) *Return to (units (unk nown) date) Emergency unknown) Department if you should have any new, worsening or (unknown) (no (unknown) (unknown) *What to do: (units (u nknown) date) unknown) (unknown) (no (unknown) (unknown) *You have been (units (unknown) date) diagnosed with unknown) Exacerbation of congestive heart failure which (unknown) (no (unknown) (unknown) 12/13/22 12/13/22 (units (unknown) date) 12/13/22 unknown) Range/Units (unknown) (no (unknown) (unknown) 12/13/22 12/13/22 (units (unknown) date) Range/Units unknown) (unknown) (no (unknown) (unknown) 12/13/22 12:35 (units (unknown) date) unknown) (unknown) (no (unknown) (unknown) 12/13/225 (units ( unknown) date) unknown) (unknown) (no (unknown) (unknown) 12/13/22 (units (unkno wn) date) unknown) (unknown) (no (unknown) (unknown) 12/16/22 1954 (units ( unknown) date) unknown) (unknown) (no (unknown) (unknown) 1 inh INHALATION (units (unknown) date) BID unknown) (unknown) (no (unknown) (unknown) 1 mg PO DAILY (units ( unknown) date) unknown) (unknown) (no (unknown) (unknown) 100 mcg PO DAILY (units (unknown) date) unknown) (unknown) (no (unknown) (unknown) 100 mg PO DAILY (units (unknown) date) Qty: 90 0RF unknown) (unknown) (no (unknown) (unknown) 100 mg PO DAILY (units (unknown) date) unknown) (unknown) (no (unknown) (unknown) 101 F, shaking (units (unknown) date) chills, worsening unknown) pain, persistent vomiting or other bothersome (unknown) (no (unknown) (unknown) 12:35 12:35 12:35 (units (unknown) date) unknown) (unknown) (no (unknown) (unknown) 12:35 13:15 (units (un known) date) unknown) (unknown) (no (unknown) (unknown) 14:30 12/13/22 (units (unknown) date) unknown) (unknown) (no (unknown) (unknown) 14:51 12/13/22 (units (unknown) date) unknown) (unknown) (no (unknown) (unknown) 14:51 (units (unkno wn) date) unknown) (unknown) (no (unknown) (unknown) 15:00 12/13/22 (units (unknown) date) unknown) (unknown) (no (unknown) (unknown) 15:01 12/13/22 (units (unknown) date) unknown) (unknown) (no (unknown) (unknown) 15:01 (units (unkno wn) date) unknown) (unknown) (no (unknown) (unknown) 15:30 12/13/22 (units (unknown) date) unknown) (unknown) (no (unknown) (unknown) 15:31 12/13/22 (units (unknown) date) unknown) (unknown) (no (unknown) (unknown) 15:31 (units (unkno wn) date) unknown) (unknown) (no (unknown) (unknown) 16:01 12/13/22 (units (unknown) date) unknown) (unknown) (no (unknown) (unknown) 16:30 12/13/22 (units (unknown) date) unknown) (unknown) (no (unknown) (unknown) 17:18 (units (unkno wn) date) unknown) (unknown) (no (unknown) (unknown) 17:19 12/13/22 (units (unknown) date) unknown) (unknown) (no (unknown) (unknown) 17:25 (units (unkno wn) date) unknown) (unknown) (no (unknown) (unknown) 2018 ), she (units (un known) date) follows routinely unknown) with her oncologist, also cardiac history (unknown) (no (unknown) (unknown) 3097 (units (unkno wn) date) unknown) (unknown) (no (unknown) (unknown) 325 mg PO DAILY (units (unknown) date) unknown) (unknown) (no (unknown) (unknown) 40 mg PO BEDTIME (units (unknown) date) unknown) (unknown) (no (unknown) (unknown) 40 mg PO DAILY (units (unknown) date) unknown) (unknown) (no (unknown) (unknown) 64 mg PO DAILY (units (unknown) date) unknown) (unknown) (no (unknown) (unknown) 81 mg PO DAILY (units (unknown) date) unknown) (unknown) (no (unknown) (unknown) ? (units (unkno wn) date) unknown) (unknown) (no (unknown) (unknown) ALT (<35) IU/L (units (unknown) date) unknown) (unknown) (no (unknown) (unknown) ALT 21 (<35) IU/L (units (unknown) date) unknown) (unknown) (no (unknown) (unknown) AST (14-36) IU/L (units (unknown) date) unknown) (unknown) (no (unknown) (unknown) AST 42 H (14-36) (units (unknown) date) IU/L unknown) (unknown) (no (unknown) (unknown) Abdominal x-ray: (units (unknown) date) unknown) (unknown) (no (unknown) (unknown) Activity (units (unkno wn) date) Restrictions/Additi unknown) onal Instructions: (unknown) (no (unknown) (unknown) Additional (units (unk nown) date) findings:? unknown) (unknown) (no (unknown) (unknown) Additionally (units (u nknown) date) patient is aware of unknown) being anemic for some time, takes iron. She (unknown) (no (unknown) (unknown) Admin: 12/13/22 (units (unknown) date) 14:15 Dose: 1,000 unknown) mls/hr (unknown) (no (unknown) (unknown) Admin: 12/13/22 (units (unknown) date) 16:10 Dose: 112 unknown) mls/hr (unknown) (no (unknown) (unknown) Age/Sex: 72 / F (units (unknown) date) unknown) (unknown) (no (unknown) (unknown) Albumin (3.5-5.0) (units (unknown) date) g/dL unknown) (unknown) (no (unknown) (unknown) Albumin 3.8 (units (un known) date) (3.5-5.0) g/dL unknown) (unknown) (no (unknown) (unknown) Albumin/Globulin (units (unknown) date) Ratio (1.0-2.8) unknown) (unknown) (no (unknown) (unknown) Albumin/Globulin (units (unknown) date) Ratio 1.0 (1.0-2.8) unknown) (unknown) (no (unknown) (unknown) Alkaline (units (unkno wn) date) Phosphatase unknown) (38-126) U/L (unknown) (no (unknown) (unknown) Alkaline (units (unkno wn) date) Phosphatase 130 H unknown) (38-126) U/L (unknown) (no (unknown) (unknown) Allergies (units (unkn own) date) unknown) (unknown) (no (unknown) (unknown) Allergy/AdvReac (units (unknown) date) Type Severity unknown) Reaction Status Date / Time (unknown) (no (unknown) (unknown) 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 Please correlate with (unknown) (no (unknown) (unknown) At least moderate (units (unknown) date) cardiomegaly.? unknown) (unknown) (no (unknown) (unknown) BACK: Nontender (units (unknown) date) without deformity unknown) or crepitance. No flank tenderness. (unknown) (no (unknown) (unknown) BUN (7-17) mg/dL (units (unknown) date) unknown) (unknown) (no (unknown) (unknown) BUN 37 H (7-17) (units (unknown) date) mg/dL unknown) (unknown) (no (unknown) (unknown) BUN/Creatinine (units (unknown) date) Ratio (6-22) unknown) (unknown) (no (unknown) (unknown) BUN/Creatinine (units (unknown) date) Ratio 15.7 (6-22) unknown) (unknown) (no (unknown) (unknown) Baso # (Auto) (units ( unknown) date) (0-100) /uL unknown) (unknown) (no (unknown) (unknown) Baso # (Auto) 0 (units (unknown) date) (0-100) /uL unknown) (unknown) (no (unknown) (unknown) Baso % (Auto) (units ( unknown) date) (0-2) % unknown) (unknown) (no (unknown) (unknown) Baso % (Auto) 0.6 (units (unknown) date) (0-2) % unknown) (unknown) (no (unknown) (unknown) Bedside Urine (units ( unknown) date) Bilirubin - unknown) Negative (unknown) (no (unknown) (unknown) Bedside Urine (units ( unknown) date) Glucose Negative unknown) (unknown) (no (unknown) (unknown) Bedside Urine (units ( unknown) date) Ketone - Negative unknown) (unknown) (no (unknown) (unknown) Bedside Urine (units ( unknown) date) Leukocytes +/- 15 unknown) (unknown) (no (unknown) (unknown) Bedside Urine (units ( unknown) date) Nitrite - Negative unknown) (unknown) (no (unknown) (unknown) Bedside Urine (units ( unknown) date) Occult Blood - unknown) Negative (unknown) (no (unknown) (unknown) Bedside Urine (units ( unknown) date) Protein + 30 unknown) (unknown) (no (unknown) (unknown) Bedside Urine (units ( unknown) date) Urobilinogen - unknown) Negative (unknown) (no (unknown) (unknown) Bedside Urine pH (units (unknown) date) 6.5 unknown) (unknown) (no (unknown) (unknown) Blood Pressure (units (unknown) date) 143/72 H unknown) (unknown) (no (unknown) (unknown) Blood Pressure (units (unknown) date) 163/75 H unknown) (unknown) (no (unknown) (unknown) Blood Pressure (units (unknown) date) 181/72 H unknown) (unknown) (no (unknown) (unknown) Blood Pressure (units (unknown) date) 181/75 H unknown) (unknown) (no (unknown) (unknown) Blood Pressure (units (unknown) date) 191/97 H 12/13/22 unknown) 10:16 (unknown) (no (unknown) (unknown) Blood Pressure (units (unknown) date) unknown) (unknown) (no (unknown) (unknown) Bones:? (units (unkno wn) date) Unremarkable.? unknown) Sternotomy wires are seen.? (unknown) (no (unknown) (unknown) CARDIOVASCULAR: (units (unknown) date) Denies chest pain, unknown) palpitations, admits to orthopnea, no leg (unknown) (no (unknown) (unknown) CARDIOVASCULAR: (units (unknown) date) Regular rate and unknown) rhythm without murmurs, gallops, or rubs. (unknown) (no (unknown) (unknown) CHF exacerbation (units (unknown) date) unknown) (unknown) (no (unknown) (unknown) CK-MB (CK-2) (units (u nknown) date) (<2.37) ng/mL unknown) (unknown) (no (unknown) (unknown) CK-MB (CK-2) 0.85 (units (unknown) date) (<2.37) ng/mL unknown) (unknown) (no (unknown) (unknown) CK-MB (CK-2) Rel (units (unknown) date) Index (1.5-5.0) % unknown) (unknown) (no (unknown) (unknown) CK-MB (CK-2) Rel (units (unknown) date) Index 0.6 L unknown) (1.5-5.0) % (unknown) (no (unknown) (unknown) CT scan - (units (unkn own) date) abdomen/pelvis: unknown) (unknown) (no (unknown) (unknown) Calcium (8.4-10.2) (units (unknown) date) mg/dL unknown) (unknown) (no (unknown) (unknown) Calcium 8.5 (units (un known) date) (8.4-10.2) mg/dL unknown) (unknown) (no (unknown) (unknown) Carbon Dioxide (units (unknown) date) (22-32) mmol/L unknown) (unknown) (no (unknown) (unknown) Carbon Dioxide 25 (units (unknown) date) (22-32) mmol/L unknown) (unknown) (no (unknown) (unknown) Chest x-ray: (units (u nknown) date) unknown) (unknown) (no (unknown) (unknown) Chief Complaint: (units (unknown) date) Back Pain/Injury unknown) (unknown) (no (unknown) (unknown) Chloride (98-107) (units (unknown) date) mmol/L unknown) (unknown) (no (unknown) (unknown) Chloride 103 (units (u nknown) date) (98-107) mmol/L unknown) (unknown) (no (unknown) (unknown) Cholecystectomy (units (unknown) date) unknown) (unknown) (no (unknown) (unknown) Chronic kidney (units (unknown) date) disease is stable. unknown) She did urinate with diuretics here in the (unknown) (no (unknown) (unknown) Clinical (units (unkno wn) date) Impression: unknown) (unknown) (no (unknown) (unknown) Constipation, (units ( unknown) date) unspecified unknown) (unknown) (no (unknown) (unknown) Cosign (units (unkno wn) date) unknown) (unknown) (no (unknown) (unknown) Course (units (unkno wn) date) unknown) (unknown) (no (unknown) (unknown) Creatinine (units (unk nown) date) (0.52-1.04) mg/dL unknown) (unknown) (no (unknown) (unknown) Creatinine 2.35 H (units (unknown) date) (0.52-1.04) mg/dL unknown) (unknown) (no (unknown) (unknown) : 1950 (units (unknown) date) Acct:[id number] unknown) (unknown) (no (unknown) (unknown) Date of Service: (units (unknown) date) 12/13/22 unknown) (unknown) (no (unknown) (unknown) Departure (units (unkn own) date) unknown) (unknown) (no (unknown) (unknown) Discharge Plan (units (unknown) date) unknown) (unknown) (no (unknown) (unknown) Discontinued (units (u nknown) date) Medications unknown) (unknown) (no (unknown) (unknown) Discussed with (units (unknown) date) patient diagnosis unknown) (unknown) (no (unknown) (unknown) Documented By: KB (units (unknown) date) unknown) (unknown) (no (unknown) (unknown) Documented By: RLS (units (unknown) date) unknown) (unknown) (no (unknown) (unknown) ECG Data (units (unkno wn) date) unknown) (unknown) (no (unknown) (unknown) ED Attending (units (u nknown) date) Cosignature unknown) Attestation: (unknown) (no (unknown) (unknown) ED. Breathing (units ( unknown) date) improved. She is unknown) not hypoxic. Troponin is negative. (unknown) (no (unknown) (unknown) ENT: Nose without (units (unknown) date) bleeding, purulent unknown) drainage. Throat without erythema, (unknown) (no (unknown) (unknown) ER Physician: (units ( unknown) date) Olga Talbert unknown) P.A-C (unknown) (no (unknown) (unknown) EXTREMITIES: No (units (unknown) date) edema LE unknown) (unknown) (no (unknown) (unknown) EYES: Pupils equal (units (unknown) date) round and reactive. unknown) Extraocular motions intact. No scleral (unknown) (no (unknown) (unknown) Emergency Report (units (unknown) date) unknown) (unknown) (no (unknown) (unknown) Eos # (Auto) (units (u nknown) date) (0-450) /uL unknown) (unknown) (no (unknown) (unknown) Eos # (Auto) 100 (units (unknown) date) (0-450) /uL unknown) (unknown) (no (unknown) (unknown) Eos % (Auto) (2-4) (units (unknown) date) % unknown) (unknown) (no (unknown) (unknown) Eos % (Auto) 2.3 (units (unknown) date) (2-4) % unknown) (unknown) (no (unknown) (unknown) Esterase (units (unkno wn) date) unknown) (unknown) (no (unknown) (unknown) Estimated GFR (units ( unknown) date) (>60) mL/min unknown) (unknown) (no (unknown) (unknown) Estimated GFR 21 L (units (unknown) date) (>60) mL/min unknown) (unknown) (no (unknown) (unknown) Exam Narrative: (units (unknown) date) unknown) (unknown) (no (unknown) (unknown) Exam (units (unkno wn) date) unknown) (unknown) (no (unknown) (unknown) Findings and (units (u nknown) date) discharge diagnosis unknown) discussed with patient/family followed by (unknown) (no (unknown) (unknown) Furosemide 60 mg/ (units (unknown) date) Sodium (Chloride) unknown) 56 mls @ 112 mls/hr IV NOW ONE (unknown) (no (unknown) (unknown) GASTROINTESTINAL: (units (unknown) date) Abdomen soft, unknown) non-tender, slightly distended. Normal BS no (unknown) (no (unknown) (unknown) GASTROINTESTINAL: (units (unknown) date) Denies nausea, unknown) vomiting, has had RUQ and LUQ abdominal pain, (unknown) (no (unknown) (unknown) GENERAL: 72 year (units (unknown) date) old patient appears unknown) stated age. Well-developed patient, in no (unknown) (no (unknown) (unknown) GENERAL: Denies (units (unknown) date) chills, admits to unknown) fatigue, no malaise, fever, sweats. (unknown) (no (unknown) (unknown) : Denies (units (unk nown) date) dysuria,has a unknown) frequency, takes diuretics (unknown) (no (unknown) (unknown) General (units (unkno wn) date) unknown) (unknown) (no (unknown) (unknown) Globulin (1.7-4.1) (units (unknown) date) g/dL unknown) (unknown) (no (unknown) (unknown) Globulin 3.9 (units (u nknown) date) (1.7-4.1) g/dL unknown) (unknown) (no (unknown) (unknown) Glucose (80-110) (units (unknown) date) mg/dL unknown) (unknown) (no (unknown) (unknown) Glucose 132 H (units ( unknown) date) (80-110) mg/dL unknown) (unknown) (no (unknown) (unknown) HEAD: Atraumatic. (units (unknown) date) Normocephalic. unknown) (unknown) (no (unknown) (unknown) HEENT: Denies (units ( unknown) date) sinus pain, ear unknown) pain, sore throat, difficulty swallowing, (unknown) (no (unknown) (unknown) HPI - Back (units (unk nown) date) Pain/Injury unknown) (unknown) (no (unknown) (unknown) HPI Narrative: (units (unknown) date) unknown) (unknown) (no (unknown) (unknown) Has had (units (unkno wn) date) colonoscopy many unknown) years ago, over 15 years she admits, with 1 benign (unknown) (no (unknown) (unknown) Hct (36-46) % (units ( unknown) date) unknown) (unknown) (no (unknown) (unknown) Hct 29.9 L (36-46) (units (unknown) date) % unknown) (unknown) (no (unknown) (unknown) He also reported (units (unknown) date) constipation. unknown) Imaging studies confirmed congestive heart (unknown) (no (unknown) (unknown) Heart failure (units ( unknown) date) type: unspecified unknown) Qualified Code(s): I50.9 - Heart failure, (unknown) (no (unknown) (unknown) Her SOB seem to (units (unknown) date) improve, she was unknown) able to ambulate on her own. (unknown) (no (unknown) (unknown) Hgb (12.0-16.0) (units (unknown) date) g/dL unknown) (unknown) (no (unknown) (unknown) Hgb 9.6 L (units (unkn own) date) (12.0-16.0) g/dL unknown) (unknown) (no (unknown) (unknown) History of Present (units (unknown) date) Illness unknown) (unknown) (no (unknown) (unknown) Home Medications (units (unknown) date) unknown) (unknown) (no (unknown) (unknown) Hysterectomy (units (u nknown) date) unknown) (unknown) (no (unknown) (unknown) I saw and (units (unkn own) date) evaluated patient unknown) myself. She is complaining of shortness of breath (unknown) (no (unknown) (unknown) I was immediately (units (unknown) date) available in the unknown) department for consultation. Documentation (unknown) (no (unknown) (unknown) IMPRESSION:? (units (u nknown) date) Cardiomegaly, unknown) pleural effusions, and interstitial prominence.? CHF (unknown) (no (unknown) (unknown) IMPRESSION:? No (units (unknown) date) significant bowel unknown) abnormality is seen. (unknown) (no (unknown) (unknown) IMPRESSION:? There (units (unknown) date) is only a mild unknown) amount of stool seen within the distal colon.? (unknown) (no (unknown) (unknown) Imaging Data (units (u nknown) date) unknown) (unknown) (no (unknown) (unknown) Imaging reviewed: (units (unknown) date) yes unknown) (unknown) (no (unknown) (unknown) Initial Vital (units ( unknown) date) Signs unknown) (unknown) (no (unknown) (unknown) Initial Vital (units ( unknown) date) Signs: unknown) (unknown) (no (unknown) (unknown) Instructions: DI (units (unknown) date) for Heart Failure unknown) (unknown) (no (unknown) (unknown) Interpretation: (units (unknown) date) unknown) (unknown) (no (unknown) (unknown) [facility] (units (unknown) date) [address] unknown) [place] [address] (unknown) (no (unknown) (unknown) Lab Data (units (unkno wn) date) unknown) (unknown) (no (unknown) (unknown) Lab Results (units (un known) date) unknown) (unknown) (no (unknown) (unknown) Lab results (units (un known) date) narrative: unknown) (unknown) (no (unknown) (unknown) Labs reviewed and (units (unknown) date) interpreted by unknown) myself: yes (unknown) (no (unknown) (unknown) Labs: (units (unkno wn) date) unknown) (unknown) (no (unknown) (unknown) Last Infusion: (units (unknown) date) 12/13/22 15:38 unknown) Dose: 0 mls/hr (unknown) (no (unknown) (unknown) Last Infusion: (units (unknown) date) 12/13/22 17:04 unknown) Dose: 0 mls/hr (unknown) (no (unknown) (unknown) Lipase (23-300) (units (unknown) date) U/L unknown) (unknown) (no (unknown) (unknown) Lipase 201 (units (unk nown) date) (23-300) U/L unknown) (unknown) (no (unknown) (unknown) Aramis Godfrey, (units (unknown) date) [Primary Care unknown) Provider] (unknown) (no (unknown) (unknown) Lymph # (Auto) (units (unknown) date) (0373-4803) /uL unknown) (unknown) (no (unknown) (unknown) Lymph # (Auto) (units (unknown) date) 1000 L (5196-6245) unknown) /uL (unknown) (no (unknown) (unknown) Lymph % (Auto) (units (unknown) date) (25-40) % unknown) (unknown) (no (unknown) (unknown) Lymph % (Auto) (units (unknown) date) 19.0 L (25-40) % unknown) (unknown) (no (unknown) (unknown) MCH (26-34) PG (units (unknown) date) unknown) (unknown) (no (unknown) (unknown) MCH 32.9 (26-34) (units (unknown) date) PG unknown) (unknown) (no (unknown) (unknown) MCHC (30-36) % (units (unknown) date) unknown) (unknown) (no (unknown) (unknown) MCHC 32.1 (30-36) (units (unknown) date) % unknown) (unknown) (no (unknown) (unknown) MCV (80-100) fL (units (unknown) date) unknown) (unknown) (no (unknown) (unknown) MCV 102.6 H (units (un known) date) (80-100) fL unknown) (unknown) (no (unknown) (unknown) MDM - Back (units (unk nown) date) Pain/Injury unknown) (unknown) (no (unknown) (unknown) MDM Narrative (units ( unknown) date) unknown) (unknown) (no (unknown) (unknown) MUSCULOSKELETAL: (units (unknown) date) denies weakness, unknown) joint pain, or bony pain (unknown) (no (unknown) (unknown) Macrocytosis 1+ H (units (unknown) date) unknown) (unknown) (no (unknown) (unknown) Macrocytosis (units (u nknown) date) unknown) (unknown) (no (unknown) (unknown) Medical decision (units (unknown) date) making narrative: unknown) (unknown) (no (unknown) (unknown) Medication (units (unk nown) date) Instructions unknown) Recorded Confirmed (unknown) (no (unknown) (unknown) Medication (units (unk nown) date) Instructions unknown) Recorded (unknown) (no (unknown) (unknown) Mild ascites. (units ( unknown) date) unknown) (unknown) (no (unknown) (unknown) Miscellaneous: No (units (unknown) date) inguinal hernias unknown) are seen. ? ? (unknown) (no (unknown) (unknown) Stone # (Auto) (units ( unknown) date) (0-900) /uL unknown) (unknown) (no (unknown) (unknown) Stone # (Auto) 800 (units (unknown) date) (0-900) /uL unknown) (unknown) (no (unknown) (unknown) Stone % (Auto) (units ( unknown) date) (3-14) % unknown) (unknown) (no (unknown) (unknown) Stone % (Auto) 16.0 (units (unknown) date) H (3-14) % unknown) (unknown) (no (unknown) (unknown) NECK: Trachea (units ( unknown) date) midline. Non tender unknown) (unknown) (no (unknown) (unknown) NEURO: AOx3. (units (u nknown) date) unknown) (unknown) (no (unknown) (unknown) NEUROLOGIC: Denies (units (unknown) date) weakness, headache, unknown) numbness, change in speech, confusion, (unknown) (no (unknown) (unknown) NT-Pro-B Natriuret (units (unknown) date) Pep (<125) pg/mL unknown) (unknown) (no (unknown) (unknown) NT-Pro-B Natriuret (units (unknown) date) Pep 4890 H (<125) unknown) pg/mL (unknown) (no (unknown) (unknown) Narrative (units (unkn own) date) unknown) (unknown) (no (unknown) (unknown) Narrative: (units (unk nown) date) unknown) (unknown) (no (unknown) (unknown) Neut # (Auto) (units ( unknown) date) (8508-6675) /uL unknown) (unknown) (no (unknown) (unknown) Neut # (Auto) 3300 (units (unknown) date) (5986-3551) /uL unknown) (unknown) (no (unknown) (unknown) Neut % (Auto) (units ( unknown) date) (50-75) % unknown) (unknown) (no (unknown) (unknown) Neut % (Auto) 62.1 (units (unknown) date) (50-75) % unknown) (unknown) (no (unknown) (unknown) No Action (units (unkn own) date) unknown) (unknown) (no (unknown) (unknown) No blood in stool (units (unknown) date) unknown) (unknown) (no (unknown) (unknown) No new medications (units (unknown) date) given unknown) (unknown) (no (unknown) (unknown) No significant (units (unknown) date) stool can be seen unknown) within the colon (unknown) (no (unknown) (unknown) Onset (ago): (units (u nknown) date) day(s) (7) unknown) (unknown) (no (unknown) (unknown) Ordered: (units (unkno wn) date) unknown) (unknown) (no (unknown) (unknown) Orders (units (unkno wn) date) unknown) (unknown) (no (unknown) (unknown) Oxygen Delivery (units (unknown) date) Method 12/13/22 unknown) 10:16 (unknown) (no (unknown) (unknown) PELVIS: (units (unkno wn) date) unknown) (unknown) (no (unknown) (unknown) PSYCHIATRIC: No (units (unknown) date) concerning unknown) psychosocial issues. (unknown) (no (unknown) (unknown) Patient (units (unkno wn) date) Disposition: Home unknown) (unknown) (no (unknown) (unknown) Patient History (units (unknown) date) unknown) (unknown) (no (unknown) (unknown) Patient also noted (units (unknown) date) she is more short unknown) of breath then usual, and has difficulty (unknown) (no (unknown) (unknown) Patient got (units (un known) date) alarmed about unknown) change in BM, and tried OTC miralax and colace wo (unknown) (no (unknown) (unknown) Patient states she (units (unknown) date) does not eat as unknown) much but she does have difficulty to Lose (unknown) (no (unknown) (unknown) Patient's symptoms (units (unknown) date) improved over unknown) duration of stay with above-stated therapies. (unknown) (no (unknown) (unknown) Patient: (units (unkno wn) date) Gómez Walls MR#: unknown) [id number] (unknown) (no (unknown) (unknown) Pelvic Nodes: (units ( unknown) date) Unremarkable. unknown) (unknown) (no (unknown) (unknown) Pelvic Organs: (units (unknown) date) This patient is unknown) status post hysterectomy. No adnexal masses are (unknown) (no (unknown) (unknown) Plt Count (units (unkn own) date) (150-400) X103/uL unknown) (unknown) (no (unknown) (unknown) Plt Count 86 L (units (unknown) date) (150-400) X103/uL unknown) (unknown) (no (unknown) (unknown) Postoperative and (units (unknown) date) degenerative unknown) changes are seen.? 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 (unknown) (no (unknown) (unknown) Pulse Oximetry 95 (units (unknown) date) 97 92 unknown) (unknown) (no (unknown) (unknown) Pulse Oximetry 96 (units (unknown) date) 12/13/22 10:16 unknown) (unknown) (no (unknown) (unknown) Pulse Oximetry 97 (units (unknown) date) 97 unknown) (unknown) (no (unknown) (unknown) Pulse Oximetry 97 (units (unknown) date) 98 unknown) (unknown) (no (unknown) (unknown) Pulse Oximetry 98 (units (unknown) date) 99 unknown) (unknown) (no (unknown) (unknown) Pulse Rate 60 (units ( unknown) date) 12/13/22 10:16 unknown) (unknown) (no (unknown) (unknown) Pulse Rate 63 63 (units (unknown) date) unknown) (unknown) (no (unknown) (unknown) Pulse Rate 63 64 (units (unknown) date) unknown) (unknown) (no (unknown) (unknown) Pulse Rate 65 65 (units (unknown) date) unknown) (unknown) (no (unknown) (unknown) Pulse Rate 69 (units ( unknown) date) unknown) (unknown) (no (unknown) (unknown) Pulse Rate 73 65 (units (unknown) date) 72 unknown) (unknown) (no (unknown) (unknown) Qualifiers: (units (un known) date) unknown) (unknown) (no (unknown) (unknown) RBC (4.0-5.2) (units ( unknown) date) X106/uL unknown) (unknown) (no (unknown) (unknown) RBC 2.92 L (units (unk nown) date) (4.0-5.2) X106/uL unknown) (unknown) (no (unknown) (unknown) RBC Morphology Not (units (unknown) date) Reportable unknown) (unknown) (no (unknown) (unknown) RBC Morphology (units (unknown) date) unknown) (unknown) (no (unknown) (unknown) RDW (11.6-14.8) % (units (unknown) date) unknown) (unknown) (no (unknown) (unknown) RDW 19.9 H (units (unk nown) date) (11.6-14.8) % unknown) (unknown) (no (unknown) (unknown) RESPIRATORY: (units (u nknown) date) admits to dyspnea, unknown) no cough, wheezing, hemoptysis, sputum. (unknown) (no (unknown) (unknown) RESPIRATORY: there (units (unknown) date) are scattered rales unknown) not cleared with cough (unknown) (no (unknown) (unknown) Radiologist's (units ( unknown) date) Impression: unknown) (unknown) (no (unknown) (unknown) Referrals: (units (unk nown) date) unknown) (unknown) (no (unknown) (unknown) Related Data (units (u nknown) date) unknown) (unknown) (no (unknown) (unknown) Respiratory Rate (units (unknown) date) 16 unknown) (unknown) (no (unknown) (unknown) Respiratory Rate (units (unknown) date) 18 12/13/22 10:16 unknown) (unknown) (no (unknown) (unknown) Respiratory Rate (units (unknown) date) 20 unknown) (unknown) (no (unknown) (unknown) Respiratory Rate (units (unknown) date) unknown) (unknown) (no (unknown) (unknown) Return precautions (units (unknown) date) discussed with unknown) patient/family whom verbalize understanding of (unknown) (no (unknown) (unknown) Review of Systems (units (unknown) date) unknown) (unknown) (no (unknown) (unknown) SKIN: Denies rash, (units (unknown) date) skin lesions, or unknown) other feels skin is dry (unknown) (no (unknown) (unknown) SKIN: No rash or (units (unknown) date) erythema of visible unknown) areas dry skin noted (unknown) (no (unknown) (unknown) She admits to (units ( unknown) date) flatulence, urge to unknown) defecate, but not much comes out (unknown) (no (unknown) (unknown) She does not take (units (unknown) date) blood thinners, but unknown) on low dose ASA (unknown) (no (unknown) (unknown) She sees multiple (units (unknown) date) specialists, unknown) cardiology, nephrology, oncology, has a close (unknown) (no (unknown) (unknown) She states for (units (unknown) date) about 1 week she unknown) noticed some weight abdominal pain initially (unknown) (no (unknown) (unknown) She was instructed (units (unknown) date) to follow up with unknown) her PCP, cardiology (unknown) (no (unknown) (unknown) Signed By: (units (unk nown) date) unknown) (unknown) (no (unknown) (unknown) Small right-sided (units (unknown) date) pleural effusion. unknown) (unknown) (no (unknown) (unknown) Small right-sided (units (unknown) date) pleural effusion.? unknown) (unknown) (no (unknown) (unknown) Smoking Status: (units (unknown) date) Former smoker unknown) (unknown) (no (unknown) (unknown) Social History (units (unknown) date) (Reviewed 12/13/22 unknown) @ 22:22 by Olga Talbert PA-C) (unknown) (no (unknown) (unknown) Sodium (137-145) (units (unknown) date) mmol/L unknown) (unknown) (no (unknown) (unknown) Sodium 138 (units (unk nown) date) (137-145) mmol/L unknown) (unknown) (no (unknown) (unknown) Sodium Chloride (units (unknown) date) (Normal Saline unknown) 0.9%) 500 mls @ 1,000 mls/hr IV BOLUS ONE (unknown) (no (unknown) (unknown) Source: patient (units (unknown) date) unknown) (unknown) (no (unknown) (unknown) Stand Alone Forms: (units (unknown) date) Patient Portal/API unknown) (unknown) (no (unknown) (unknown) Stated Complaint: (units (unknown) date) Constipation no BM unknown) x7days (unknown) (no (unknown) (unknown) Sternotomy (units (unk nown) date) unknown) (unknown) (no (unknown) (unknown) Stop: 12/13/22 (units (unknown) date) 14:39 unknown) (unknown) (no (unknown) (unknown) Stop: 12/13/22 (units (unknown) date) 15:45 unknown) (unknown) (no (unknown) (unknown) Substance Use (units ( unknown) date) Type: does not use unknown) (unknown) (no (unknown) (unknown) Temperature 97.7 F (units (unknown) date) 12/13/22 10:16 unknown) (unknown) (no (unknown) (unknown) Time Seen by (units (u nknown) date) Provider: 12/13/22 unknown) 12:32 (unknown) (no (unknown) (unknown) Total Bilirubin (units (unknown) date) (0.2-1.3) mg/dL unknown) (unknown) (no (unknown) (unknown) Total Bilirubin (units (unknown) date) 0.9 (0.2-1.3) mg/dL unknown) (unknown) (no (unknown) (unknown) Total Creatine (units (unknown) date) Kinase (30-135) U/L unknown) (unknown) (no (unknown) (unknown) Total Creatine (units (unknown) date) Kinase 150 H unknown) (30-135) U/L (unknown) (no (unknown) (unknown) Total Protein (units ( unknown) date) (6.3-8.2) g/dL unknown) (unknown) (no (unknown) (unknown) Total Protein 7.7 (units (unknown) date) (6.3-8.2) g/dL unknown) (unknown) (no (unknown) (unknown) Troponin I (units (unk nown) date) (0.01-0.034) ng/mL unknown) (unknown) (no (unknown) (unknown) Troponin I 0.030 (units (unknown) date) (0.01-0.034) ng/mL unknown) (unknown) (no (unknown) (unknown) Ur Culture (units (unk nown) date) Indicated? Specimen unknown) cultured (unknown) (no (unknown) (unknown) Ur Culture (units (unk nown) date) Indicated? unknown) (unknown) (no (unknown) (unknown) Ur Leukocyte (units (u nknown) date) Esterase (NEGATIVE) unknown) (unknown) (no (unknown) (unknown) Ur Leukocyte (units (u nknown) date) Esterase 1+ H unknown) (NEGATIVE) (unknown) (no (unknown) (unknown) Ur Specific (units (un known) date) [place] unknown) (1.000-1.035) (unknown) (no (unknown) (unknown) Ur Specific (units (un known) date) [place] 1.010 unknown) (1.000-1.035) (unknown) (no (unknown) (unknown) Ur Squamous Epith (units (unknown) date) Cells (0-5/HPF) unknown) (unknown) (no (unknown) (unknown) Ur Squamous Epith (units (unknown) date) Cells 1-5 /hpf unknown) (0-5/HPF) (unknown) (no (unknown) (unknown) Urine Appearance (units (unknown) date) Clear unknown) (unknown) (no (unknown) (unknown) Urine Appearance (units (unknown) date) unknown) (unknown) (no (unknown) (unknown) Urine Bacteria (units (unknown) date) (None) unknown) (unknown) (no (unknown) (unknown) Urine Bacteria Few (units (unknown) date) (2-10) H (None) unknown) (unknown) (no (unknown) (unknown) Urine Bilirubin (units (unknown) date) (NEGATIVE) unknown) (unknown) (no (unknown) (unknown) Urine Bilirubin (units (unknown) date) Negative (NEGATIVE) unknown) (unknown) (no (unknown) (unknown) Urine Color Yellow (units (unknown) date) unknown) (unknown) (no (unknown) (unknown) Urine Color (units (un known) date) unknown) (unknown) (no (unknown) (unknown) Urine Dip (units (unkn own) date) unknown) (unknown) (no (unknown) (unknown) Urine Glucose (UA) (units (unknown) date) (Negative) g/dL unknown) (unknown) (no (unknown) (unknown) Urine Glucose (UA) (units (unknown) date) Negative (Negative) unknown) g/dL (unknown) (no (unknown) (unknown) Urine Ketones (units ( unknown) date) (NEGATIVE) unknown) (unknown) (no (unknown) (unknown) Urine Ketones (units ( unknown) date) Negative (NEGATIVE) unknown) (unknown) (no (unknown) (unknown) Urine Nitrate (units ( unknown) date) (Negative) unknown) (unknown) (no (unknown) (unknown) Urine Nitrate (units ( unknown) date) Negative (Negative) unknown) (unknown) (no (unknown) (unknown) Urine Occult Blood (units (unknown) date) (Negative) unknown) (unknown) (no (unknown) (unknown) Urine Occult Blood (units (unknown) date) Negative (Negative) unknown) (unknown) (no (unknown) (unknown) Urine Protein (units ( unknown) date) (Negative) unknown) (unknown) (no (unknown) (unknown) Urine Protein 1+ H (units (unknown) date) (Negative) unknown) (unknown) (no (unknown) (unknown) Urine RBC (units (unkn own) date) (0-5/HPF) unknown) (unknown) (no (unknown) (unknown) Urine RBC 0-1/hpf (units (unknown) date) (0-5/HPF) unknown) (unknown) (no (unknown) (unknown) Urine Specific (units (unknown) date) [place] 1.01 unknown) (unknown) (no (unknown) (unknown) Urine Urobilinogen (units (unknown) date) (0.2) E.U./dL unknown) (unknown) (no (unknown) (unknown) Urine Urobilinogen (units (unknown) date) 1.0 (0.2) E.U./dL unknown) (unknown) (no (unknown) (unknown) Urine WBC (units (unkn own) date) (0-5/HPF) unknown) (unknown) (no (unknown) (unknown) Urine WBC 1-5/hpf (units (unknown) date) (0-5/HPF) unknown) (unknown) (no (unknown) (unknown) Urine pH (4.5-8.0) (units (unknown) date) unknown) (unknown) (no (unknown) (unknown) Urine pH 7.0 (units (u nknown) date) (4.5-8.0) unknown) (unknown) (no (unknown) (unknown) Vital Signs - 8 hr (units (unknown) date) unknown) (unknown) (no (unknown) (unknown) Vital Signs (units (un known) date) unknown) (unknown) (no (unknown) (unknown) Vital signs: (units (u nknown) date) unknown) (unknown) (no (unknown) (unknown) WBC (4.5-11.0) (units (unknown) date) X103/uL unknown) (unknown) (no (unknown) (unknown) WBC 5.3 (4.5-11.0) (units (unknown) date) X103/uL unknown) (unknown) (no (unknown) (unknown) [Embedded Image (units (unknown) date) Not Available] unknown) (unknown) (no (unknown) (unknown) acute distress. 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 mastectomy, (unknown) (no (unknown) (unknown) alcohol intake (units (unknown) date) frequency: unknown) holidays/special occasions only (unknown) (no (unknown) (unknown) alcohol intake: (units (unknown) date) current unknown) (unknown) (no (unknown) (unknown) allopurinol 100 mg (units (unknown) date) tablet 100 mg PO unknown) DAILY 10/15/22 10/15/22 (unknown) (no (unknown) (unknown) allopurinol 100 mg (units (unknown) date) tablet unknown) (unknown) (no (unknown) (unknown) also has poor (units ( unknown) date) renal function, she unknown) is on multi drug regimen for her many medical (unknown) (no (unknown) (unknown) anastrozole 1 mg (units (unknown) date) tablet 1 mg PO unknown) DAILY 10/15/22 10/15/22 (unknown) (no (unknown) (unknown) anastrozole 1 mg (units (unknown) date) tablet unknown) (unknown) (no (unknown) (unknown) and believes she (units (unknown) date) has a constipation, unknown) no melena. (unknown) (no (unknown) (unknown) and then continue (units (unknown) date) with your usual unknown) dose 40 mg daily unless it would be changed (unknown) (no (unknown) (unknown) apparently patient (units (unknown) date) has several issues unknown) including exacerbation of CHF which may (unknown) (no (unknown) (unknown) aspirin 81 mg (units ( unknown) date) Capsule unknown) (unknown) (no (unknown) (unknown) aspirin 81 mg (units ( unknown) date) capsule 81 mg PO unknown) DAILY 10/15/22 10/15/22 (unknown) (no (unknown) (unknown) atorvastatin 40 mg (units (unknown) date) tablet 40 mg PO unknown) BEDTIME 10/15/22 10/15/22 (unknown) (no (unknown) (unknown) atorvastatin 40 mg (units (unknown) date) tablet unknown) (unknown) (no (unknown) (unknown) botnick-undetermin (units (unknown) date) ed rhythm possible unknown) sinus P wave is seen in V3 low voltage (unknown) (no (unknown) (unknown) by your (units (unkno wn) date) hand bulldozer or unknown) primary care provider (unknown) (no (unknown) (unknown) cardiac enzymes (units (unknown) date) were NL however BNP unknown) is high suggesting exacerbation of her CHF (unknown) (no (unknown) (unknown) cellulitis. (units (un known) date) unknown) (unknown) (no (unknown) (unknown) concerning (units (unk nown) date) symptoms, such as unknown) Worsening shortness of breath,fever greater than (unknown) (no (unknown) (unknown) conditions (units (unk nown) date) unknown) (unknown) (no (unknown) (unknown) continue to work (units (unknown) date) with her unknown) oncologist, monitor anemia and thrombocytopenia (unknown) (no (unknown) (unknown) device (units (unkno wn) date) unknown) (unknown) (no (unknown) (unknown) diagnosis and plan (units (unknown) date) unknown) (unknown) (no (unknown) (unknown) dizziness. (units (unk nown) date) unknown) (unknown) (no (unknown) (unknown) edema, (units (unkno wn) date) unknown) (unknown) (no (unknown) (unknown) emergency room (units (unknown) date) with complaints of unknown) constipation. (unknown) (no (unknown) (unknown) explain her (units (un known) date) dyspnea, as well as unknown) anemia (unknown) (no (unknown) (unknown) failure, no acute (units (unknown) date) intra-abdominal unknown) findings. (unknown) (no (unknown) (unknown) ferrous sulfate (units (unknown) date) 325 mg (65 mg 325 unknown) mg PO DAILY 10/15/22 10/15/22 (unknown) (no (unknown) (unknown) ferrous sulfate (units (unknown) date) 325 mg (65 mg iron) unknown) Tablet (unknown) (no (unknown) (unknown) fluticasone 500 (units (unknown) date) mcg-salmeterol 50 1 unknown) inh inhalation BID 10/15/22 10/15/22 (unknown) (no (unknown) (unknown) fluticasone (units (un known) date) propion-salmeterol unknown) [Advair Diskus] 500-50 mcg/dose blister with (unknown) (no (unknown) (unknown) follow with her (units (unknown) date) PCP, whom she is unknown) planningto see tomorrow (unknown) (no (unknown) (unknown) for an (units (unkno wn) date) appointment. Let unknown) them know you were seen in the Emergency Department and (unknown) (no (unknown) (unknown) for viral (units (unkn own) date) pneumonia (COVID-19 unknown) in October 2022) exacerbation of CHF presents to (unknown) (no (unknown) (unknown) gentamicin Allergy (units (unknown) date) Verified 10/15/22 unknown) 17:02 (unknown) (no (unknown) (unknown) has been reviewed. (units (unknown) date) unknown) (unknown) (no (unknown) (unknown) her appetite was (units (unknown) date) poor as well. unknown) (unknown) (no (unknown) (unknown) her symptoms (units (u nknown) date) unknown) (unknown) (no (unknown) (unknown) household members: (units (unknown) date) spouse unknown) (unknown) (no (unknown) (unknown) however for next 2 (units (unknown) date) days please unknown) increase the dose of the torsemide to 40 (unknown) (no (unknown) (unknown) icterus. No (units (un known) date) injection or unknown) drainage. (unknown) (no (unknown) (unknown) if constipation (units (unknown) date) continues to be a unknown) problem, try stool softeners, occasional (unknown) (no (unknown) (unknown) in turn can (units (un known) date) trigger worsening unknown) shortness of breath and dyspnea on exertion as (unknown) (no (unknown) (unknown) including lung (units (unknown) date) cancer, status post unknown) partial lobectomy right lung, treated with (unknown) (no (unknown) (unknown) including mitral (units (unknown) date) valve replacement, unknown) congestive heart failure, recent admission (unknown) (no (unknown) (unknown) inhalation (Advair (units (unknown) date) Diskus) unknown) (unknown) (no (unknown) (unknown) iron) tablet (units (u nknown) date) unknown) (unknown) (no (unknown) (unknown) is (units (unkno wn) date) unknown) (unknown) (no (unknown) (unknown) labs reviewed (units ( unknown) date) patient has CRD st unknown) IV, chronic anemia and now thrombocytopenia (unknown) (no (unknown) (unknown) levothyroxine 100 (units (unknown) date) mcg tablet 100 mcg unknown) PO DAILY 10/15/22 10/15/22 (unknown) (no (unknown) (unknown) levothyroxine 100 (units (unknown) date) mcg tablet unknown) (unknown) (no (unknown) (unknown) magnesium chloride (units (unknown) date) 64 mg 64 mg PO unknown) DAILY 10/15/22 10/15/22 (unknown) (no (unknown) (unknown) magnesium chloride (units (unknown) date) 64 mg Tablet unknown) Extended Release (unknown) (no (unknown) (unknown) mcg/dose blistr (units (unknown) date) powdr for unknown) (unknown) (no (unknown) (unknown) metoprolol (units (unk nown) date) succinate 100 mg unknown) 100 mg PO DAILY #90 tabs 10/18/22 (unknown) (no (unknown) (unknown) metoprolol (units (unk nown) date) succinate 100 mg unknown) tablet extended release 24 hr (unknown) (no (unknown) (unknown) mg twice daily (units (unknown) date) unknown) (unknown) (no (unknown) (unknown) mid trunk obesity (units (unknown) date) noted unknown) (unknown) (no (unknown) (unknown) negotiating steps (units (unknown) date) with some dyspnea unknown) on excertion (unknown) (no (unknown) (unknown) no clear etiology (units (unknown) date) of her unknown) constipation, acute intra abdominal findings to explain (unknown) (no (unknown) (unknown) no incontinence, (units (unknown) date) hematuria, urinary unknown) retention. (unknown) (no (unknown) (unknown) organomegaly (units (u nknown) date) unknown) (unknown) (no (unknown) (unknown) patient has very (units (unknown) date) little bowel unknown) movement, which was mostly soft. She did admit (unknown) (no (unknown) (unknown) patient was given (units (unknown) date) IV diuretics, and unknown) was able to void. (unknown) (no (unknown) (unknown) polyp removed. (units (unknown) date) unknown) (unknown) (no (unknown) (unknown) radiation and now (units (unknown) date) on anastrozole unknown) (both diagnosis and treatment took place in (unknown) (no (unknown) (unknown) record of today's (units (unknown) date) note if your PCP is unknown) in our system (unknown) (no (unknown) (unknown) regular rate (units (u nknown) date) narrow complex unknown) previous EKG 2022 did show normal sinus rhythm (unknown) (no (unknown) (unknown) seen.? (units (unkno wn) date) unknown) (unknown) (no (unknown) (unknown) seizures, (units (unkn own) date) incoordination. unknown) (unknown) (no (unknown) (unknown) senna laxative. (units (unknown) date) unknown) (unknown) (no (unknown) (unknown) settled in the (units ( unknown) date) midback, also she unknown) has had sensation of bloatedness, low appetite. (unknown) (no (unknown) (unknown) significant (units (un known) date) improvement unknown) (unknown) (no (unknown) (unknown) started in right (units (unknown) date) upper quadrant then unknown) migrated to left upper quadrant, then (unknown) (no (unknown) (unknown) suspected. (units (unk nown) date) unknown) (unknown) (no (unknown) (unknown) symptoms (units (unkno wn) date) unknown) (unknown) (no (unknown) (unknown) tablet,extended (units (unknown) date) release 24 hr unknown) (unknown) (no (unknown) (unknown) tablet,extended (units (unknown) date) release unknown) (unknown) (no (unknown) (unknown) that we ask that (units (unknown) date) you be seen in unknown) follow up. We will electronically transmit a (unknown) (no (unknown) (unknown) the patient is 72 (units (unknown) date) years old unknown) female, with extensive medical history (unknown) (no (unknown) (unknown) tonsillar (units (unkn own) date) hypertrophy or unknown) exudate. Airway patent. (unknown) (no (unknown) (unknown) torsemide 20 mg (units (unknown) date) tablet 40 mg PO unknown) DAILY 10/15/22 10/15/22 (unknown) (no (unknown) (unknown) torsemide 20 mg (units (unknown) date) tablet unknown) (unknown) (no (unknown) (unknown) unspecified (units (un known) date) unknown) (unknown) (no (unknown) (unknown) verbalization of (units (unknown) date) understanding unknown) (unknown) (no (unknown) (unknown) weight. she (units (un known) date) describes her bowel unknown) habits as regular however within past week, (unknown) (no (unknown) (unknown) well as anemia, (units (unknown) date) which also could be unknown) a culprit of your symptoms. (unknown) (no (unknown) (unknown) with orthopnea. (units (unknown) date) History of unknown) congestive heart failure, BNP elevated at 48 90. Social History date description facility 2022-12-13 00:00 Ex-smoker (finding) [facility] Vital Signs date measurement value units 2022-12-13 00:00 BMI 29.7 kg/m2 2022-12-13 00:00 BP_diastolic 72 mmHg 2022-12-13 00:00 BP_systolic 143 mmHg 2022-12-13 00:00 heart_rate 69 /min 2022-12-13 00:00 height_metric 160.02 cm 2022-12-13 00:00 height_standard 63 in 2022-12-13 00:00 o2_saturation 99 % 2022-12-13 00:00 respiration_rate 16 /min 2022-12-13 00:00 temperature_metric 36.5 C 2022-12-13 00:00 temperature_standard 97.7 F 2022-12-13 00:00 weight_metric 76.2 kg 2022-12-13 00:00 weight_standard 167.99 lb
--- NOTE | 2023-01-22 11:42 | ED Physician Documentation ---
PD HPI UPPER EXT INJURY - Stated complaint Stated Complaint: LFT ARM PX - Chief complaint Chief Complaint: Ext Problem - History obtained from History obtained from: Patient - Additonal information Additional information: This is a 72-year-old woman who presents with her . She has a history of aortic and mitral valve replacements, lung cancer status post lobectomy, CKD, anemia of chronic disease, COPD, and breast cancer. The beginning of October she was at [facility] for colder pneumonia and ever since then she has had pain in the proximal left forearm at the site of an IV placement. She also has increased shortness of breath and pedal edema despite taking her maximum dose of torsemide, 2 in the morning and 2 at night. PD PAST MEDICAL HISTORY - Past Medical History Cardiovascular: Hypertension, High cholesterol, Murmur Respiratory: COPD, Other (prior lung cancer with lower lobectomy) Neuro: None Endocrine/Autoimmune: Type 2 diabetes, HyPOthyroidism GI: GERD CLOTH FRAMER: None : Other HEENT: None Psych: None Musculoskeletal: Osteoarthritis Derm: None - Past Surgical History Past Surgical History: Yes General: Appendectomy /CLOTH FRAMER: Hysterectomy Cardiovascular: Valve replacement - Present Medications Home Medications: Ambulatory Orders Medication Instructions Recorded Confirmed Anastrozole 1 mg PO DAILY 12/21/17 11/10/22 Fluticasone/Salmeterol [Advair 1 puffs INH BID 04/02/18 11/10/22 500-50 Diskus] Multivitamin [Theragran] 1 tab PO DAILY 04/02/18 11/10/22 Torsemide 40 mg PO DAILY 12/08/19 11/10/22 Ubidecarenone [Co Q-10] 100 mg PO DAILY 03/26/20 11/10/22 Aspirin EC [Ecotrin] 81 mg PO DAILY 02/24/22 11/10/22 Albuterol Sulfate [Proair 1 - 2 puffs PO BID PRN 09/22/22 11/10/22 Respiclick] Atorvastatin Calcium 40 mg PO HS 09/22/22 11/10/22 Cholecalciferol [Vitamin D3] 1 tab PO DAILY 09/22/22 11/10/22 Cyanocobalamin (Vitamin B-12) 1,000 mcg PO DAILY 09/22/22 11/10/22 [Vitamin B-12] Levothyroxine [Synthroid] 100 mcg PO QDAC 09/22/22 11/10/22 Magnesium Oxide [Mag Ox] 400 mg PO QPM 09/22/22 11/10/22 Metoprolol Succinate 100 mg PO DAILY 09/22/22 11/10/22 Famotidine [Pepcid] 20 mg PO Q48H #30 tab 09/26/22 11/10/22 Metoprolol Tartrate [Lopressor] 25 mg PO DAILY PRN #30 tablet 09/26/22 11/10/22 - Allergies Allergies/Adverse Reactions: Allergies Allergy/AdvReac Type Severity Reaction Status Date / Time gentamicin Allergy ototoxicity Verified 09/21/22 09:19 azithromycin AdvReac Rash Verified 09/24/22 05:15 - Social History Does the pt smoke?: No Smoking Status: Former smoker Does the pt drink ETOH?: Yes Does the pt have substance abuse?: No - Immunizations Immunizations are current?: Yes Immunizations: TDAP >10years/unknown - POLST Patient has POLST: No POLST Status: Full Code PD ED PE NORMAL - Vitals Vital signs reviewed: Yes - General General: Alert and oriented X 3, No acute distress - HEENT HEENT: PERRL, EOMI - Neck Neck: Supple, no meningeal sign, No bony TTP - Respiratory Respiratory: Other (Wheezy with rhonchi and rales at the bases) - Extremities Extremities: Other (3+ pitting pedal edema. She has a cord with tenderness in the proximal lateral forearm of the left forearm. No limited range of motion at either elbow or wrist. ) - Neuro Neuro: Alert and oriented X 3, Normal speech Results - Vitals Vitals: Vital Signs - 24 hr 01/22/23 10:49 Temperature 36.4 C L Heart Rate 78 Respiratory 24 Rate Blood Pressure 108/36 L O2 Saturation 98 Oxygen O2 Source [] Room air O2 Source Room air - Rads (name of study) 2 view chest x-ray demonstrates small right pleural effusion and mild fluid overload with cardiomegaly. Relevant Findings:: Final report received, EMP independent interpretation of test PD Medical Decision Making - ED course ED course: 72-year-old woman presents for left arm pain, likely superficial phlebitis based on history and physical. We were waiting for the photography professor and who was delayed by emergent OB cases and the patient ended up eloping. I had updated the patient prior to her eloping and let her know that I was planning on putting her on an increased dose of diuretic given her mild fluid overload and shortness of breath. Departure - Departure Disposition: ED Laurita
--- NOTE | 2023-01-22 12:36 | XRAY Report ---
PROCEDURE: Chest 2 View X-Ray INDICATIONS: Cough and shortness of breath TECHNIQUE: 2 views of the chest were acquired. COMPARISON: CXR 09/21/2022. FINDINGS: Surgical changes and devices: Aortic valve replacement. Post median sternotomy. Left axillary clips.. Lungs and pleura: Small right pleural effusion. Prominent pulmonary markings. Mediastinum: Mediastinal contours are unchanged. Heart size is enlarged. Bones and chest wall: No suspicious bony abnormalities. Soft tissues appear unremarkable. IMPRESSION: Small right pleural effusion. Mild fluid overload/CHF. Cardiomegaly. Reviewed by: Ernie Nino MD on 01/22/2023 12:35 PM PST Approved by: Ernie Nino MD on 01/22/2023 12:35 PM PST Station ID: [id number]
== END 2023-01-22 14:36 | disposition left against medical advice (07) ==
LOC: ED 10:40
DX: M79.632 Pain in left forearm (principal); E87.70 Fluid overload, unspecified; Z87.891 Personal history of nicotine dependence
CPT/HCPCS: 99282; 99283

== ENCOUNTER 2023-04-26 08:24 | Outpatient (CLI) | payer MEDICARE, OTHER ==
[2023-04-26 09:07] LABS: INR 1.1 (0.8-1.2); PT - PROTHROMBIN TIME 12.3 secs (9.9-12.6)
[2023-04-26] MEDS ORDERED: fentaNYL 100 MCG/2 ML VIAL ONE (09:29)
[2023-04-26] MEDS ORDERED: MIDAZOLAM 2 MG/2 ML VIAL ONE (09:29)
[2023-04-26 09:35] LABS: PARTIAL THROMBOPLASTIN TIME 34.9 secs (24.9-33.3)
[2023-04-26] MEDS ORDERED: LIDOCAINE-MPF 1% 5 ML VIAL ONE ×2 (09:37→10:40)
[2023-04-26] MEDS ORDERED: LACTATED RINGERS 1,000 ML IV ONE (10:00)
[2023-04-26] MEDS ORDERED: fentaNYL 100 MCG/2 ML VIAL IVP ONE (10:30)
[2023-04-26] MEDS ORDERED: MIDAZOLAM 2 MG/2 ML VIAL IVP ONE (10:30)
--- NOTE | 2023-04-26 11:34 | CT Report ---
PROCEDURE: BONE MARROW BX W/ASPIRATION Sedation analgesia for 30 minutes. INDICATIONS: POST UNTREATED LYMPHOMA, ANEMIA TECHNIQUE: The indications, alternatives, benefits, risks, and possible complications of the procedure were comm unicated to the patient. Informed written consent from the patient was obtained and placed in the art. Continuous EKG and hemodynamic monitoring was started by trained personnel. For radiation dose reduction, the following was used: automated exposure control, adjustment of mA and/or kV according to patient size. The patient was brought to the CT suite and engagement executive spiral CT imaging was performed with localization g rid. The appropriate site for percutaneous access to the biopsy target was marked, was prepped and d raped sterilely, and was infused with local anaesthesia. Under CT guidance, a bone marrow biopsy dev ice and needle set was advanced to the biopsy target, and specimen(s) were obtained. The trocar and needle were then removed, and the patient was sent for post-procedure monitoring. COMPARISON: None. FINDINGS: Biopsy site: Left iliac crest. Needle: 11 gauge biopsy needle with introducer trocar. Number of passes: Aspiration (15 mL) and core. Medications: 1% lidocaine for local anaesthesia. IV Fentanyl and Versed for conscious sedation for 30 minutes (see nursing record). Complications: None. IMPRESSION: Successful CT-guided bone marrow biopsy of left iliac crest. Reviewed by: Ena Perez MD on 04/26/2023 11:33 AM PDT Approved by: Ena Perez MD on 04/26/2023 11:33 AM PDT Station ID: [id number]
[2023-04-26 13:02] VITALS: BP 110/60
[2023-04-26] MEDS ORDERED: fentaNYL 100 MCG/2 ML VIAL IV ONE (14:00)
== END 2023-04-26 08:25 | disposition home or self-care (01) ==
LOC: DI 08:24
PROVIDERS: ATTEND Internal Medicine Hematology & Oncology
DX: D64.9 Anemia, unspecified (principal); C85.90 Non-Hodgkin lymphoma, unspecified, unspecified site; Z85.118 Personal history of other malignant neoplasm of bronchus and lung
CPT/HCPCS: 36415; 38222; 85610; 85730; J7120

== ENCOUNTER 2023-11-24 11:14 | Emergency (ER) | payer MEDICARE, OTHER ==
[2023-11-24 11:38] VITALS: BP 110/56; O2SAT 100
== END 2023-11-24 11:57 | disposition left against medical advice (07) ==
LOC: ED 11:14
DX: Z53.21 Procedure and treatment not carried out due to patient leaving prior to being seen by health care provider (principal)

== ENCOUNTER 2024-01-18 12:41 | Emergency (ER) | payer MEDICARE, OTHER ==
[2024-01-18 13:44] LABS: BASOPHILS % (AUTO) 0.6 %; EOSINOPHILS # (AUTO) 0.1 10^3/uL (0.0-0.7); EOSINOPHILS % (AUTO) 2.3 %; HCT - HEMATOCRIT 29.5 % (37.0-47.0); HGB - HEMOGLOBIN 9.3 g/dL (12.0-16.0); LYMPHOCYTES # (AUTO) 0.7 10^3/uL (1.5-3.5); LYMPHOCYTES % (AUTO) 15.7 %; MEAN CORPUSCULAR HEMOGLOBIN 37.5 pg (27.0-31.0); MEAN CORPUSCULAR HGB CONC 31.5 g/dL (32.0-36.0); MEAN PLATELET VOLUME 10.2 fL (7.9-10.8); MONOCYTES # (AUTO) 0.7 10^3/uL (0.0-1.0); NEUTROPHILS # (AUTO) 3.2 10^3/uL (1.5-6.6); NEUTROPHILS % (AUTO) 67.2 %; PLT - PLATELET COUNT 104 10^3/uL (130-450); RED BLOOD COUNT 2.48 10^6/uL (4.20-5.40); RED CELL DISTRIBUTION WIDTH 20.4 % (12.0-15.0); WHITE BLOOD COUNT 4.7 x10^3/uL (4.8-10.8)
[2024-01-18 13:58] LABS: SLIDE REVIEW? Indicated
[2024-01-18 14:08] LABS: ALBUMIN 3.3 g/dL (3.2-5.5); ALBUMIN/GLOBULIN RATIO 1.1 (1.0-2.2); BILIRUBIN,TOTAL 0.8 mg/dL (0.2-1.0); CALCIUM 10.1 mg/dL (8.5-10.3); CREATININE 3.2 mg/dL (0.6-1.3); POTASSIUM 2.8 mmol/L (3.5-4.5); TOTAL PROTEIN 6.3 g/dL (6.4-8.9)
[2024-01-18 14:38] LABS: PLATELET ESTIMATE, MANUAL DECREASED (<130,000) (NORMAL); PLATELET MORPHOLOGY NORMAL APPEARANCE (NORMAL); WBC MORPHOLOGY (MULTIPLE) NORMAL APPEARANCE (NORMAL)
--- NOTE | 2024-01-18 14:56 | ED Physician Documentation ---
History of Present Illness - Stated complaint Stated Complaint: NOSE BLEED,GEORGE - Chief complaint Chief Complaint: General - Additonal information Additional information: 73-year-old ill-appearing female with complex past medical history including but not limited to COPD, type 2 diabetes, anemia of chronic disease, chronic kidney disease, lung cancer, bacteremia, CHF, thrombocytopenia, breast cancer, hypertension, COPD, hypothyroidism, presents emergency department for persistent nosebleed since Wednesday. Patient says that she has been having a persistent headache that does not go away with his ongoing nosebleed. She said that she is never had any cauterization for nosebleeds in the past she uses Afrin daily which does not seem to be helping as she does not use any Afrin today she is now feeling mild dizziness. PD PAST MEDICAL HISTORY - Past Medical History Past Medical History: Yes Cardiovascular: Congestive heart failure, Hypertension, High cholesterol, Atrial flutter, Atrial fibrillation, Valve disorder Respiratory: COPD, Other Neuro: None Endocrine/Autoimmune: Type 2 diabetes GI: None ASSISTANT BRANCH OPERATIONS MANAGER: None : Renal insuffiency HEENT: None Psych: Depression, Anxiety Musculoskeletal: None Derm: None - Past Surgical History Past Surgical History: Yes General: Appendectomy /ASSISTANT BRANCH OPERATIONS MANAGER: Hysterectomy Cardiovascular: Valve replacement - Present Medications Home Medications: Ambulatory Orders Medication Instructions Recorded Confirmed Anastrozole 1 mg PO DAILY 12/21/17 01/18/24 Multivitamin [Theragran] 1 tab PO DAILY 04/02/18 01/18/24 Torsemide 80 mg PO DAILY 12/08/19 01/18/24 Aspirin EC [Ecotrin] 81 mg PO DAILY 02/24/22 01/18/24 Levothyroxine [Synthroid] 100 mcg PO QDAC 09/22/22 01/18/24 Magnesium Oxide [Mag Ox] 400 mg PO QPM 09/22/22 01/18/24 Metoprolol Succinate 25 mg PO DAILY 09/22/22 01/18/24 Albuterol Sulf [Ventolin Hfa 1 - 2 puffs INH Q4HR PRN 04/06/23 01/18/24 Inhaler] Fluticasone/Salmeterol [Advair 1 each IH BID 04/06/23 01/18/24 500-50 Diskus] Indapamide [Lozol] 2.5 mg PO UD 04/06/23 01/18/24 Potassium Chloride 40 meq PO DAILY 04/06/23 01/18/24 allopurinoL [Zyloprim] 100 mg PO DAILY 04/06/23 01/18/24 - Allergies Allergies/Adverse Reactions: Allergies Allergy/AdvReac Type Severity Reaction Status Date / Time gentamicin Allergy ototoxicity Verified 01/18/24 13:01 azithromycin AdvReac Rash Verified 01/18/24 13:01 - Social History Does the pt smoke?: No Smoking Status: Never smoker Does the pt drink ETOH?: Yes Does the pt have substance abuse?: No - Immunizations Immunizations are current?: Yes Immunizations: TDAP >10years/unknown - POLST Patient has POLST: No POLST Status: Full Code PD ED PE NORMAL - Vitals Vital signs reviewed: Yes - General General: Alert and oriented X 3, No acute distress, Well developed/nourished - HEENT HEENT: Atraumatic, PERRL, Pharynx benign, Other (right nares bleeding) - Cardiac Cardiac: RRR, Other (murmur) - Respiratory Respiratory: No respiratory distress, Clear bilaterally - Neuro Neuro: Alert and oriented X 3, cheese cook 2-12 intact, No motor deficit, No sensory deficit, Normal speech Eye Opening: Spontaneous Motor: Obeys Commands Verbal: Oriented GCS Score: 15 - Psych Psych: Normal mood Results - Vitals Vitals: Vital Signs - 24 hr 01/18/24 01/18/24 01/18/24 13:01 15:30 16:31 Temperature 36.1 C L Heart Rate 73 47 L 64 Respiratory 18 16 18 Rate Blood Pressure 114/55 L 106/85 H 113/52 L O2 Saturation 100 98 95 Oxygen O2 Source [Without Activity] Room air O2 Source Room air - Labs Labs: Laboratory Tests 01/18/24 01/18/24 01/18/24 13:40 13:40 13:40 WBC 4.7 L RBC 2.48 L Hgb 9.3 L Hct 29.5 L MCV 119.0 H MCH 37.5 H MCHC 31.5 L RDW 20.4 H Plt Count 104 L MPV 10.2 Neut # (Auto) 3.2 Lymph # (Auto) 0.7 L [place] # (Auto) 0.7 Eos # (Auto) 0.1 Baso # (Auto) 0.0 Absolute Nucleated RBC 0.00 Nucleated RBC % 0.0 Manual Slide Review Indicated WBC Morphology NORMAL APPEARANCE Platelet Estimate DECREASED (<130,000) Platelet Morphology NORMAL APPEARANCE RBC Morph Micro Appear 3+ ANISOCYTOSIS Sodium 139 Potassium 2.8 L Chloride 96 L Carbon Dioxide 35 H Anion Gap 8.0 BUN 67 H Creatinine 3.2 H Estimated GFR (MDRD) 14 L Glucose 137 H Calcium 10.1 Magnesium 2.3 Total Bilirubin 0.8 AST 33 ALT 13 Alkaline Phosphatase 102 Total Protein 6.3 L Albumin 3.3 Globulin 3.0 Albumin/Globulin Ratio 1.1 PD Medical Decision Making - ED course ED course: 73-year-old female presents emergency department for ongoing nosebleed. She says that she uses Afrin daily and has been blowing out a large clots during nosebleeds. Labs were collected hemoglobin 9.3 this appears to be at patient's baseline last hemoglobin was in December was 9.1. Hematocrit 29.5, MCV elevated at 119 she does have previously charted macrocytic anemia. Platelet count 104. Chemistry reveals hypokalemia, potassium 2.8, BUN 67, creatinine 3.2, GFR 14. I spoke with patient's wet process miller head Dr. Leach, and he reports that given patien t's terminal mitral valve regurgitation she is not a candidate for dialysis and she does have end-stage renal disease and ultimately discussion needs to be had with the patient and her primary care provider about eventually pursuing hospice. He said that there is no intervention warranted for her kidney function right now. We have had him to do Afrin and nose clamp for 45 minutes and she continued to have nosebleed we then transition to TXA and Merisel sponge to the right naris with TXA. She was told to follow-up with ENT and to call them tomorrow to see if they are able to get her in for an urgent cauterization she was given their contact information patient was told to leave the packing in place for at least 24 to 48 hours. And to report back to the emergency department if she is having any worsening bleeding and to follow-up with primary care provider to have labs reevaluated in a couple days. Departure - Departure Disposition: 01 Home, Self Care Clinical Impression: Nosebleed CKD (chronic kidney disease) Qualifiers: Chronic kidney disease stage: stage 4 (severe) Qualified Code(s): N18.4 - Chronic kidney disease, stage 4 (severe) Instructions: ED Nosebleed Comments: Thank you for trusting us with your care. I did speak with your wet process miller head who says that this is your baseline for your kidney function. Please call follow-up with your primary care provider about your ongoing nosebleeds and consider holding off on your aspirin for a few days. In the future if your nosebleed comes back make sure that you are blowing the clot out and then inhal ing Afrin in both nostrils and then applying a nose clamp for at least 45 minutes to help with nosebleed. I strongly recommend following up with ENT there is an bacteriology research assistant in [place] called [facility] and their phone number is [phone] and sometimes they can do cauterization to help with these recurrent nosebleeds. Please follow-up with your primary care provider to have your labs reevaluated in a couple days if you are still having nosebleeds. Forms: PCP List Discharge Date/Time: 01/18/24 16:31
[2024-01-18] MEDS: OXYMETAZOLINE HCL 100 SPRAYS BOTTLE NAS STA (15:16)
[2024-01-18] MEDS: POTASSIUM CHLORIDE 20 MEQ TABLET PO STA ×2 (15:16)
[2024-01-18] MEDS: ACETAMINOPHEN 325 MG TABLET PO STA (15:25)
[2024-01-18] MEDS: TRANEXAMIC ACID 1,000 MG/10 ML VIAL NAS STA (16:25)
[2024-01-18 16:40] VITALS: BP 113/52; O2SAT 95
== END 2024-01-18 16:31 | disposition home or self-care (01) ==
LOC: ED 12:41
DX: R04.0 Epistaxis (principal); I13.0 Hypertensive heart and chronic kidney disease with heart failure and stage 1 through stage 4 chronic kidney disease, or unspecified chronic kidney disease; E11.22 Type 2 diabetes mellitus with diabetic chronic kidney disease; N18.4 Chronic kidney disease, stage 4 (severe); I50.9 Heart failure, unspecified; D63.1 Anemia in chronic kidney disease; J44.9 Chronic obstructive pulmonary disease, unspecified; E78.00 Pure hypercholesterolemia, unspecified; I48.91 Unspecified atrial fibrillation; E03.9 Hypothyroidism, unspecified; Z79.899 Other long term (current) drug therapy; Z79.82 Long term (current) use of aspirin; Z79.51 Long term (current) use of inhaled steroids
CPT/HCPCS: 36415; 80053; 83735; 85025; 99283; A9270

== ENCOUNTER 2024-05-30 17:42 | Emergency (ER) | payer MEDICARE, OTHER ==
--- NOTE | 2024-05-30 18:26 | XRAY Report ---
PROCEDURE: Chest 2V INDICATIONS: SOA/DIFF BREATHING TECHNIQUE: 2 views of the chest were acquired. COMPARISON: 07/29/2023 FINDINGS: Surgical changes and devices: Sternotomy wires. Right lung postsurgical changes. Valvular replacemen t devices. Lungs and pleura: Mild to moderate right effusion. Right mid and lower lung opacities are present. M ild left lung opacity also seen. Mediastinum: Cardiomegaly Bones and chest wall: Degenerative changes IMPRESSION: Mild to moderate right effusion. Right mid and lower lung opacities, with mild left lung base opacity . Findings may represent edema, atelectasis, and/or infection. Consider future imaging surveillance t o assess for resolution. Reviewed by: Antonio Bruner MD on 05/30/2024 6:24 PM PDT Approved by: Antonio Bruner MD on 05/30/2024 6:24 PM PDT Station ID: [id number]
[2024-05-30 19:16] LABS: BASOPHILS % (AUTO) 0.7 %; EOSINOPHILS # (AUTO) 0.1 10^3/uL (0.0-0.7); EOSINOPHILS % (AUTO) 1.6 %; HCT - HEMATOCRIT 34.7 % (37.0-47.0); HGB - HEMOGLOBIN 10.8 g/dL (12.0-16.0); LYMPHOCYTES # (AUTO) 0.9 10^3/uL (1.5-3.5); LYMPHOCYTES % (AUTO) 16.5 %; MEAN CORPUSCULAR HEMOGLOBIN 32.1 pg (27.0-31.0); MEAN CORPUSCULAR HGB CONC 31.1 g/dL (32.0-36.0); MEAN CORPUSCULAR VOLUME 103.3 fL (81.0-99.0); MEAN PLATELET VOLUME 9.9 fL (7.9-10.8); MONOCYTES # (AUTO) 0.7 10^3/uL (0.0-1.0); MONOCYTES % (AUTO) 12.1 %; NEUTROPHILS # (AUTO) 3.8 10^3/uL (1.5-6.6); NEUTROPHILS % (AUTO) 68.7 %; PLT - PLATELET COUNT 127 10^3/uL (130-450); RED BLOOD COUNT 3.36 10^6/uL (4.20-5.40); RED CELL DISTRIBUTION WIDTH 18.9 % (12.0-15.0); WHITE BLOOD COUNT 5.5 x10^3/uL (4.8-10.8)
[2024-05-30 19:24] LABS: ALBUMIN/GLOBULIN RATIO 0.9 (1.0-2.2); BILIRUBIN,TOTAL 0.7 mg/dL (0.2-1.0); CALCIUM 9.1 mg/dL (8.5-10.3); CREATININE 2.7 mg/dL (0.6-1.3); POTASSIUM 3.2 mmol/L (3.5-4.5); TOTAL PROTEIN 6.4 g/dL (6.4-8.9)
--- NOTE | 2024-05-30 19:55 | ED Physician Documentation ---
PD HPI DYSPNEA - Stated complaint Stated Complaint: SOA - Chief complaint Chief Complaint: Resp - History obtained from History obtained from: Patient - Additional information Additional information: This is a loan lady with history of CKD. She is on chronic diuresis and about a week ago her physician lowered her torsemide dose. Subsequently over the last week she has become more dyspneic and developed pedal edema. There is no significant chest pain associated with it. PD PAST MEDICAL HISTORY - Past Medical History Past Medical History: Yes Cardiovascular: Congestive heart failure, Hypertension, High cholesterol, Atrial flutter, Atrial fibrillation, Valve disorder Respiratory: COPD, Other Neuro: None Endocrine/Autoimmune: Type 2 diabetes GI: None NUTRITION TECH: None : Renal insuffiency HEENT: None Psych: Depression, Anxiety Musculoskeletal: None Derm: None - Past Surgical History Past Surgical History: Yes General: Appendectomy /NUTRITION TECH: Hysterectomy Cardiovascular: Valve replacement - Present Medications Home Medications: Ambulatory Orders Medication Instructions Recorded Confirmed Anastrozole 1 mg PO DAILY 12/21/17 04/18/24 Multivitamin [Theragran] 1 tab PO DAILY 04/02/18 04/18/24 Torsemide 80 mg PO DAILY 12/08/19 04/18/24 Levothyroxine [Synthroid] 100 mcg PO QDAC 09/22/22 04/18/24 Magnesium Oxide [Mag Ox] 400 mg PO QPM 09/22/22 04/18/24 Metoprolol Succinate 25 mg PO PRN PRN 09/22/22 04/18/24 Albuterol Sulf [Ventolin Hfa 1 - 2 puffs INH Q4HR PRN 04/06/23 04/18/24 Inhaler] Fluticasone Propion/Salmeterol 1 each IH BID 04/06/23 04/18/24 [Advair 500-50 Diskus] Indapamide [Lozol] 2.5 mg PO UD 04/06/23 04/18/24 Potassium Chloride 40 meq PO DAILY 04/06/23 04/18/24 allopurinoL [Zyloprim] 100 mg PO DAILY 04/06/23 04/18/24 - Allergies Allergies/Adverse Reactions: Allergies Allergy/AdvReac Type Severity Reaction Status Date / Time gentamicin Allergy ototoxicity Verified 05/30/24 17:50 azithromycin AdvReac Rash Verified 05/30/24 17:50 - Social History Does the pt smoke?: No Smoking Status: Never smoker Does the pt drink ETOH?: Yes Does the pt have substance abuse?: No - Immunizations Immunizations are current?: Yes Immunizations: TDAP >10years/unknown - POLST Patient has POLST: No POLST Status: Full Code PD ED PE NORMAL - Vitals Vital signs reviewed: Yes - General General: Alert and oriented X 3, No acute distress - Cardiac Cardiac: RRR, No murmur - Respiratory Respiratory: Other (Diminished at the right base, nonlabored) - Extremities Extremities: Other (3+ bilateral pitting pedal edema to just above the knee) - Neuro Neuro: Alert and oriented X 3, Normal speech Results - Vitals Vitals: Vital Signs - 24 hr 05/30/24 17:44 Temperature 36.7 C Heart Rate 72 Respiratory 17 Rate Blood Pressure 124/65 O2 Saturation 97 Oxygen O2 Source [Without Activity] Room air O2 Source Room air - Labs Labs: Laboratory Tests 05/30/24 05/30/24 19:03 19:03 WBC 5.5 RBC 3.36 L Hgb 10.8 L Hct 34.7 L MCV 103.3 H MCH 32.1 H MCHC 31.1 L RDW 18.9 H Plt Count 127 L MPV 9.9 Neut # (Auto) 3.8 Lymph # (Auto) 0.9 L [place] # (Auto) 0.7 Eos # (Auto) 0.1 Baso # (Auto) 0.0 Absolute Nucleated RBC 0.00 Nucleated RBC % 0.0 Sodium 137 Potassium 3.2 L Chloride 97 L Carbon Dioxide 32 Anion Gap 8.0 BUN 72 H Creatinine 2.7 H Estimated GFR (MDRD) 17 L Glucose 155 H Calcium 9.1 Total Bilirubin 0.7 AST 33 ALT 13 Alkaline Phosphatase 121 Total Protein 6.4 Albumin 3.0 L Globulin 3.4 Albumin/Globulin Ratio 0.9 L - Rads (name of study) 2 view chest x-ray demonstrates right pleural effusion Relevant Findings:: Final report received, EMP independent interpretation of test PD Medical Decision Making - ED course ED course: This is a 73-year-old woman with CKD who presents with some fluid overload and symptoms of CHF and pedal edema related to decreasing her torsemide dosing and she was out and about today's did not take any torsemide. Workup demonstrates mild macrocytic anemia and stable to improved kidney function. She was administered IV Lasix here and told her to go back to her previous torsemide dosing pending follow-up. Departure - Departure Disposition: 01 Home, Self Care Clinical Impression: Fluid overload Qualifiers: Hypervolemia type: unspecified Qualified Code(s): E87.70 - Fluid overload, unspecified Condition: Good Record reviewed to determine appropriate education?: Yes Instructions: ED CHF General Comments: You were seen today for increased fluid in your lungs and legs related to the decrease in your torsemide dosing. You received a IV dose of furosemide and would like you to go back to your previous dosing of torsemide tomorrow and follow-up with your primary care physician. He did have fluid in your right lung especially and your primary care physician will probably want to do serial x-rays to make sure this improves as well. Return if worse.
[2024-05-30] MEDS: POTASSIUM BICARB 25 MEQ TABLET PO STA (20:13)
[2024-05-30] MEDS: FUROSEMIDE 100 MG/10 ML VIAL IVP STA (20:13)
[2024-05-30 20:58] VITALS: BP 127/94; O2SAT 97
== END 2024-05-30 21:09 | disposition home or self-care (01) ==
LOC: ED 17:42
DX: I13.2 Hypertensive heart and chronic kidney disease with heart failure and with stage 5 chronic kidney disease, or end stage renal disease (principal); E11.22 Type 2 diabetes mellitus with diabetic chronic kidney disease; N18.6 End stage renal disease; I50.9 Heart failure, unspecified; E86.1 Hypovolemia; E87.70 Fluid overload, unspecified; J90 Pleural effusion, not elsewhere classified; Z95.2 Presence of prosthetic heart valve
CPT/HCPCS: 36415; 71046; 80053; 85025; 96374; 99283; 99284; A9270; J1940

== ENCOUNTER 2024-06-10 13:13 | Emergency (ER) | payer MEDICARE, OTHER ==
[2024-06-10 13:26] VITALS: O2SAT 98
[2024-06-10 14:02] LABS: BASOPHILS # (AUTO) 0.1 10^3/uL (0.0-0.1); EOSINOPHILS # (AUTO) 0.1 10^3/uL (0.0-0.7); EOSINOPHILS % (AUTO) 2.9 %; HCT - HEMATOCRIT 34.5 % (37.0-47.0); HGB - HEMOGLOBIN 10.8 g/dL (12.0-16.0); LYMPHOCYTES # (AUTO) 0.8 10^3/uL (1.5-3.5); LYMPHOCYTES % (AUTO) 17.6 %; MEAN CORPUSCULAR HGB CONC 31.3 g/dL (32.0-36.0); MEAN CORPUSCULAR VOLUME 102.1 fL (81.0-99.0); MEAN PLATELET VOLUME 10.7 fL (7.9-10.8); MONOCYTES # (AUTO) 0.5 10^3/uL (0.0-1.0); MONOCYTES % (AUTO) 11.1 %; NEUTROPHILS # (AUTO) 3.2 10^3/uL (1.5-6.6); NEUTROPHILS % (AUTO) 67.2 %; PLT - PLATELET COUNT 132 10^3/uL (130-450); RED BLOOD COUNT 3.38 10^6/uL (4.20-5.40); RED CELL DISTRIBUTION WIDTH 18.3 % (12.0-15.0); WHITE BLOOD COUNT 4.8 x10^3/uL (4.8-10.8)
[2024-06-10 14:15] LABS: ALBUMIN 3.2 g/dL (3.2-5.5); BILIRUBIN,TOTAL 0.8 mg/dL (0.2-1.0); CALCIUM 9.3 mg/dL (8.5-10.3); CREATININE 2.7 mg/dL (0.6-1.3); POTASSIUM 3.6 mmol/L (3.5-4.5); TOTAL PROTEIN 6.3 g/dL (6.4-8.9)
--- NOTE | 2024-06-10 14:19 | ED Physician Documentation ---
History of Present Illness - Stated complaint Stated Complaint: LEGS SWOLLEN - Chief complaint Chief Complaint: General - History obtained from History obtained from: Patient - History of Present Illness Timing: Prior to arrival, Enter time - Additonal information Additional information: Patient is a 73-year-old female past medical history of CKD, history of CHF history of TAVR and mitral valve replacement presents to the emergency department with symptoms of shortness of breath and leg swelling. She was seen here last week for similar episodes was given an IV dose of Lasix and restarted on her torsemide. She saw her PCP 3 days ago for reevaluation after ED visit and was increased to torsemide 4 times a day. She notes she has been compliant with these medications but continues to have leg swelling and notes a 5 pound increase from being seen here in the emergency department last week. She notes she has not been peeing as much as she usually does and continues to have significant leg swelling so much so she is unable to get up onto her bed. She denies any chest pain associated with her symptoms. She denies any cough no fevers no dizziness or lightheadedness. PD PAST MEDICAL HISTORY - Past Medical History Past Medical History: Yes Cardiovascular: Congestive heart failure, Hypertension, High cholesterol, Atrial flutter, Atrial fibrillation, Valve disorder Respiratory: COPD, Other Neuro: None Endocrine/Autoimmune: Type 2 diabetes GI: None QUARRYMAN: None : Renal insuffiency HEENT: None Psych: Depression, Anxiety Musculoskeletal: None Derm: None - Past Surgical History Past Surgical History: Yes General: Appendectomy /QUARRYMAN: Hysterectomy Cardiovascular: Valve replacement - Present Medications Home Medications: Ambulatory Orders Medication Instructions Recorded Confirmed Anastrozole 1 mg PO DAILY 12/21/17 06/10/24 Multivitamin [Theragran] 1 tab PO DAILY 04/02/18 06/10/24 Torsemide 80 mg PO DAILY 12/08/19 06/10/24 Levothyroxine [Synthroid] 110 mcg PO QDAC 09/22/22 06/10/24 Magnesium Oxide [Mag Ox] 400 mg PO QPM 09/22/22 06/10/24 Metoprolol Succinate 25 mg PO PRN PRN 09/22/22 06/10/24 Albuterol Sulf [Ventolin Hfa 1 - 2 puffs INH Q4HR PRN 04/06/23 06/10/24 Inhaler] Fluticasone Propion/Salmeterol 1 each IH BID 04/06/23 06/10/24 [Advair 500-50 Diskus] Indapamide [Lozol] 2.5 mg PO UD 04/06/23 06/10/24 Potassium Chloride 40 meq PO DAILY 04/06/23 06/10/24 allopurinoL [Zyloprim] 100 mg PO DAILY 04/06/23 06/10/24 - Allergies Allergies/Adverse Reactions: Allergies Allergy/AdvReac Type Severity Reaction Status Date / Time gentamicin Allergy ototoxicity Verified 06/10/24 13:18 azithromycin AdvReac Rash Verified 06/10/24 13:18 - Social History Does the pt smoke?: No Smoking Status: Never smoker Does the pt drink ETOH?: Yes Does the pt have substance abuse?: No - Immunizations Immunizations are current?: Yes Immunizations: TDAP >10years/unknown - POLST Patient has POLST: No POLST Status: Full Code PD ED PE NORMAL - Vitals Vital signs reviewed: Yes - General General: Alert and oriented X 3 - HEENT HEENT: Atraumatic, PERRL - Neck Neck: No JVD - Cardiac Cardiac: RRR, No murmur, No gallop, No rub, Strong equal pulses, Other - Respiratory Respiratory: No respiratory distress, Other (Diffuse Rales noted on bilateral auscultation of the lungs.) - Abdomen Abdomen: Normal bowel sounds - Extremities Extremities: Other (Significant pitting edema 3+ noted to bilateral pretibial regions. Anasarca noted with pitting edema and swelling all the way up to mid chest.) Results - Vitals Vitals: Vital Signs - 24 hr 06/10/24 06/10/24 13:18 15:21 Temperature 36.8 C Heart Rate 69 68 Respiratory 16 16 Rate Blood Pressure 110/60 122/80 O2 Saturation 98 98 Oxygen O2 Source [] Room air O2 Source Room air - Labs Labs: Laboratory Tests 06/10/24 06/10/24 06/10/24 13:57 13:57 13:57 WBC 4.8 RBC 3.38 L Hgb 10.8 L Hct 34.5 L MCV 102.1 H MCH 32.0 H MCHC 31.3 L RDW 18.3 H Plt Count 132 MPV 10.7 Neut # (Auto) 3.2 Lymph # (Auto) 0.8 L [place] # (Auto) 0.5 Eos # (Auto) 0.1 Baso # (Auto) 0.1 Absolute Nucleated RBC 0.00 Nucleated RBC % 0.0 Sodium 135 Potassium 3.6 Chloride 96 L Carbon Dioxide 32 Anion Gap 7.0 BUN 79 H Creatinine 2.7 H Estimated GFR (MDRD) 17 L Glucose 178 H Calcium 9.3 Magnesium 2.1 Total Bilirubin 0.8 AST 36 ALT 14 Alkaline Phosphatase 125 H Troponin I High Sens 82.1 H* B-Natriuretic Peptide Total Protein 6.3 L Albumin 3.2 Globulin 3.1 Albumin/Globulin Ratio 1.0 06/10/24 13:57 WBC RBC Hgb Hct MCV MCH MCHC RDW Plt Count MPV Neut # (Auto) Lymph # (Auto) [place] # (Auto) Eos # (Auto) Baso # (Auto) Absolute Nucleated RBC Nucleated RBC % Sodium Potassium Chloride Carbon Dioxide Anion Gap BUN Creatinine Estimated GFR (MDRD) Glucose Calcium Magnesium Total Bilirubin AST ALT Alkaline Phosphatase Troponin I High Sens B-Natriuretic Peptide 491 H Total Protein Albumin Globulin Albumin/Globulin Ratio - Rads (name of study) Chest X-ray Relevant Findings:: EMP independent interpretation of test PD Medical Decision Making - ED course Complexity details: reviewed old records, reviewed results, re-evaluated patient ED course: Patient is a 73-year-old female presenting to the emergency department with bilateral leg swelling she notes increase of 5 pounds she is currently on torsemide 80 mg daily this was increased 3 days ago from 60 mg to 80 mg daily she took her for pills this morning but has had decreased urinary output lately. She follows with cardiology at [facility] unsure of when her next appointment is. Patient was seen here last week given IV Lasix and is unsure if this seemed to help her symptoms. She notes mildly short of breath and significant swelling in her legs. Vitals are stable on arrival. Patient's nonhypoxic normotensive nontachycardic. Physical exam shows significant swelling to bilateral legs with 3+ pitting edema this extends all the way up to her upper thigh and has some mild pain edema to abdomen and chest. Diffuse rales noted on auscultation of the lungs bilaterally. No appreciable wheezing. Labs obtained here in the emergency department show no significant leukocytosis mild anemia however this appears stable. EKG obtained on arrival does show low voltage QRS with prolonged QTc otherwise sinus rhythm. Chest x-ray shows moderate effusion this appears stable from previous labs additionally creatinine is at 2.7 additionally this is also stable from patient here on 05/30. Given patient's symptoms we will give dose of Bumex 4 mg for persistent CHF symptoms. No acute CHF exasperation as patient's vitals are stable and no worsening creatinine BNP or chest x-ray. Troponin was slightly elevated here at 82 however this is chronically elevated for patient and she denies any chest pain at this time. Reevaluated patient she is feeling better she has making good urine output on observation here in the emergency department she was eating [employer]. Instructed patient on low-salt diet and continuing with her torsemide 80 mg at home. Patient was given referral to nephrology in outpatient setting. Departure - Departure Disposition: , Self Care Clinical Impression: CHF exacerbation Condition: Stable Follow-Up: RASHAD SINGH MD [Physician No Access] - Comments: Watch for any worsening shortness of breath chest pain difficulty breathing follow-up with your shift manager as instructed as well as follow-up with your side panel hanger have given you a new referral. Avoid salty foods and return with any symptoms listed above. Forms: PCP List
[2024-06-10 14:58] LABS: MAGNESIUM 2.1 mg/dL (1.7-2.3)
--- NOTE | 2024-06-10 15:08 | XRAY Report ---
PROCEDURE: Chest 1V INDICATIONS: sob TECHNIQUE: One view of the chest was acquired. COMPARISON: None FINDINGS: Surgical changes and devices: Midline sternal wires. Aortic valve replacement. The left axillary bay gical clips. Lungs and pleura: Right-sided pleural effusion with atelectasis. Mediastinum: Mediastinal contours appear normal. Heart size is enlarged. Moderate vascular congesti on. Bones and chest wall: Generalized decreased osseous mineralization present. Atherosclerotic vascular calcification noted in the aortic arch. IMPRESSION: Moderate right pleural effusion with atelectasis. Cardiomegaly and moderate vascular congestion. Aortic atherosclerosis. Reviewed by: Mushtaq Pardo MD on 06/10/2024 2:06 PM JAMI Approved by: Mushtaq Pardo MD on 06/10/2024 2:06 PM AKDT Station ID: [id number]
[2024-06-10 15:09] LABS: TROPONIN I HIGH SENSITIVITY 82.1 ng/L (2.3-14.8)
[2024-06-10] MEDS: BUMETANIDE 1 MG/4 ML VIAL IVP STA (16:57)
[2024-06-10 18:01] VITALS: BP 129/78
== END 2024-06-10 17:57 | disposition home or self-care (01) ==
LOC: ED 13:13
DX: I13.0 Hypertensive heart and chronic kidney disease with heart failure and stage 1 through stage 4 chronic kidney disease, or unspecified chronic kidney disease (principal); I50.9 Heart failure, unspecified; E11.22 Type 2 diabetes mellitus with diabetic chronic kidney disease; N18.9 Chronic kidney disease, unspecified; Z95.4 Presence of other heart-valve replacement; I48.91 Unspecified atrial fibrillation; I48.92 Unspecified atrial flutter; E78.00 Pure hypercholesterolemia, unspecified; J44.9 Chronic obstructive pulmonary disease, unspecified; Z79.899 Other long term (current) drug therapy
CPT/HCPCS: 36415; 80053; 83735; 83880; 84484; 85025; 93005; 96374; 99284

== ENCOUNTER 2024-06-21 12:01 | Outpatient (CLI) | payer MEDICARE, OTHER ==
[2024-06-21 13:06] LABS: CALCIUM 9.7 mg/dL (8.5-10.3); CREATININE 2.7 mg/dL (0.6-1.3); MAGNESIUM 2.4 mg/dL (1.7-2.3); POTASSIUM 3.9 mmol/L (3.5-4.5)
== END 2024-06-21 12:02 | disposition home or self-care (01) ==
LOC: LAB 12:01
PROVIDERS: ATTEND Internal Medicine Nephrology
DX: N05.9 Unspecified nephritic syndrome with unspecified morphologic changes (principal); E83.40 Disorders of magnesium metabolism, unspecified
CPT/HCPCS: 36415; 80048; 83735

== ENCOUNTER 2024-06-26 13:18 | Emergency (ER) | payer MEDICARE, OTHER ==
--- NOTE | 2024-06-26 15:13 | XRAY Report ---
PROCEDURE: Chest 1V INDICATIONS: Short of breath TECHNIQUE: One view of the chest was acquired. COMPARISON: 06/10/2024, 05/30/2024 FINDINGS: Surgical changes and devices: Sternotomy wires are seen. Prosthetic valves are seen. There is a clos ure device seen on the left. Left-sided breast clips in left axillary clips are seen. Lungs and pleura: Visualized interstitial prominence can be seen. There is a small right-sided pleur al effusion. No pneumothorax is seen. Joint interstitial prominence can be seen. Mediastinum: Mediastinal contours appear normal. Heart size is mildly enlarged. Calcification is se en of the aortic arch. Bones and chest wall: No suspicious bony lesions. Age-appropriate degenerative changes are seen. Overlying soft tissues appear unremarkable. IMPRESSION: Findings concerning for CHF, with cardiomegaly, interstitial prominence, and a right-sided pleural ef fusion. Study overall improved compared to 06/10/2024. Postoperative and degenerative changes are seen. Reviewed by: Connor Kumari MD on 06/26/2024 2:12 PM JAMI Approved by: Connor Kumari MD on 06/26/2024 2:12 PM [email or web address] Station ID: [id number]
[2024-06-26 15:43] VITALS: BP 121/59; O2SAT 100
[2024-06-26 15:55] LABS: BASOPHILS # (AUTO) 0.1 10^3/uL (0.0-0.1); BASOPHILS % (AUTO) 0.9 %; EOSINOPHILS # (AUTO) 0.1 10^3/uL (0.0-0.7); EOSINOPHILS % (AUTO) 2.5 %; HCT - HEMATOCRIT 32.7 % (37.0-47.0); HGB - HEMOGLOBIN 10.1 g/dL (12.0-16.0); LYMPHOCYTES # (AUTO) 1.1 10^3/uL (1.5-3.5); LYMPHOCYTES % (AUTO) 20.2 %; MEAN CORPUSCULAR HEMOGLOBIN 31.5 pg (27.0-31.0); MEAN CORPUSCULAR HGB CONC 30.9 g/dL (32.0-36.0); MEAN CORPUSCULAR VOLUME 101.9 fL (81.0-99.0); MEAN PLATELET VOLUME 8.5 fL (7.9-10.8); MONOCYTES # (AUTO) 0.5 10^3/uL (0.0-1.0); MONOCYTES % (AUTO) 9.6 %; NEUTROPHILS # (AUTO) 3.7 10^3/uL (1.5-6.6); NEUTROPHILS % (AUTO) 66.4 %; PLT - PLATELET COUNT 132 10^3/uL (130-450); RED BLOOD COUNT 3.21 10^6/uL (4.20-5.40); RED CELL DISTRIBUTION WIDTH 18.4 % (12.0-15.0); WHITE BLOOD COUNT 5.5 x10^3/uL (4.8-10.8)
[2024-06-26 16:08] LABS: ALBUMIN/GLOBULIN RATIO 0.9 (1.0-2.2); BILIRUBIN,TOTAL 0.7 mg/dL (0.2-1.0); CALCIUM 9.6 mg/dL (8.5-10.3); CREATININE 2.9 mg/dL (0.6-1.3); POTASSIUM 3.3 mmol/L (3.5-4.5); TOTAL PROTEIN 6.4 g/dL (6.4-8.9)
--- NOTE | 2024-06-26 16:24 | ED Physician Documentation ---
PD HPI DYSPNEA - Stated complaint Stated Complaint: FLUID DRAIN - Chief complaint Chief Complaint: Resp - History obtained from History obtained from: Patient, Family - Additional information Additional information: The patient comes to the emergency department chief complaint of shortness of breath and wondering if she has recurrence of her pleural effusion. The patient has been accumulating a pleural effusion on the right side for the past several weeks. She has had this drained once before. She denies any fevers or chills. She does not feel like she is sick with anything. She's just been somewhat short of breath at home. No chest pain. No cough. The patient does note that she feels like she is had increasing swelling in her legs. She has a history of chronic kidney disease and has been on various diuretics most recently torsemide. Dr. Leach is the patient's information strategist currently. 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 : Renal insuffiency HEENT: None Psych: Depression, Anxiety Musculoskeletal: None Derm: None - Past Surgical History Past Surgical History: Yes General: Appendectomy /STEMMING MACHINE OPERATOR: Hysterectomy Cardiovascular: Valve replacement - Present Medications Home Medications: Ambulatory Orders Medication Instructions Recorded Confirmed Anastrozole 1 mg PO DAILY 12/21/17 06/10/24 Multivitamin [Theragran] 1 tab PO DAILY 04/02/18 06/10/24 Torsemide 80 mg PO DAILY 12/08/19 06/10/24 Levothyroxine [Synthroid] 110 mcg PO QDAC 09/22/22 06/10/24 Magnesium Oxide [Mag Ox] 400 mg PO QPM 09/22/22 06/10/24 Metoprolol Succinate 25 mg PO PRN PRN 09/22/22 06/10/24 Albuterol Sulf [Ventolin Hfa 1 - 2 puffs INH Q4HR PRN 04/06/23 06/10/24 Inhaler] Fluticasone Propion/Salmeterol 1 each IH BID 04/06/23 06/10/24 [Advair 500-50 Diskus] Indapamide [Lozol] 2.5 mg PO UD 04/06/23 06/10/24 Potassium Chloride 40 meq PO DAILY 04/06/23 06/10/24 allopurinoL [Zyloprim] 100 mg PO DAILY 04/06/23 06/10/24 - Allergies Allergies/Adverse Reactions: Allergies Allergy/AdvReac Type Severity Reaction Status Date / Time gentamicin Allergy ototoxicity Verified 06/26/24 13:36 azithromycin AdvReac Rash Verified 06/26/24 13:36 - Social History Does the pt smoke?: No Smoking Status: Never smoker Does the pt drink ETOH?: Yes Does the pt have substance abuse?: No - Immunizations Immunizations are current?: Yes Immunizations: TDAP >10years/unknown - POLST Patient has POLST: No POLST Status: Full Code PD ED PE NORMAL - Vitals Vital signs reviewed: Yes - General General: Alert and oriented X 3, No acute distress, Other (Thin, frail appearing patient, no apparent distress.) - HEENT HEENT: Atraumatic, EOMI, Moist mucous membranes - Neck Neck: Supple, no meningeal sign - Cardiac Cardiac: RRR, No murmur - Respiratory Respiratory: No respiratory distress, Clear bilaterally - Abdomen Abdomen: Soft, Non tender, Non distended - Derm Derm: Normal color, Warm and dry, No rash - Extremities Extremities: No deformity, No edema - Neuro Neuro: Alert and oriented X 3 - Psych Psych: Normal mood, Normal affect Results - Vitals Vitals: Oxygen O2 Source [Without Activity] Room air O2 Source Nasal cannula Oxygen Flow Rate 2 - Labs Labs: Laboratory Tests 06/26/24 06/26/24 15:50 15:50 WBC 5.5 RBC 3.21 L Hgb 10.1 L Hct 32.7 L MCV 101.9 H MCH 31.5 H MCHC 30.9 L RDW 18.4 H Plt Count 132 MPV 8.5 Neut # (Auto) 3.7 Lymph # (Auto) 1.1 L [place] # (Auto) 0.5 Eos # (Auto) 0.1 Baso # (Auto) 0.1 Absolute Nucleated RBC 0.00 Nucleated RBC % 0.0 Sodium 137 Potassium 3.3 L Chloride 95 L Carbon Dioxide 36 H Anion Gap 6.0 BUN 77 H Creatinine 2.9 H Estimated GFR (MDRD) 16 L Glucose 111 H Calcium 9.6 Total Bilirubin 0.7 AST 37 ALT 15 Alkaline Phosphatase 144 H B-Natriuretic Peptide 523 H Total Protein 6.4 Albumin 3.0 L Globulin 3.4 Albumin/Globulin Ratio 0.9 L Lipase 54 PD Medical Decision Making - ED course Complexity details: reviewed results, re-evaluated patient, considered differential, d/w patient ED course: Laboratory studies were obtained including CBC which showed a normal white blood cell count and a moderate anemia with hemoglobin 10.1. Potassium was slightly low at 3.3 and the patient was found to have BUN 77 and creatinine 2 he reports that on. Her albumin was mildly low but protein and globulin were normal. I spoke with Dr. Sepulveda who recommended increasing the dose of torsemide. He is scheduled to see her in a couple of days and will speak with her, but he states there is not a whole lot that can be done at this point for her given her refractory kidney disease. The patient is making urine and is not in need of emergent dialysis at this time. Her chest x-ray actually looks quite good and her oxygen requirement in the ER is only 2 L per nasal cannula. I discussed with her that there is nothing to drain at this time. She should follow-up with Dr. Sepulveda as planned and see if he can help her improve her symptoms at all. We discussed the usual indications for return. Departure - Departure Disposition: Home, Self Care Clinical Impression: Fluid retention in legs Congestive heart failure Qualifiers: Heart failure type: unspecified Heart failure chronicity: chronic Qualified Code(s): I50.9 - Heart failure, unspecified Renal failure Qualifiers: Renal failure chronicity: chronic Chronic kidney disease stage: unspecified stage Qualified Code(s): N18.9 - Chronic kidney disease, unspecified Condition: Stable Instructions: ED CHF General, ED Edema Legs Bilateral Comments: Your labs show your kidney function to be at baseline and your x-ray actually looks a little bit improved from last month. I have discussed your case with your information strategist Dr. Leach, who has said that in advance of your appointment with him later this week, you can go ahead and increase your torsemide to 100 mg daily instead of 80. He will follow-up with you on to talk about whether there is anything else that can be done about your swelling. You should wear the compression stockings that you have at home to help get some of the fluid up and out of your legs. Your x-ray shows only a very small amount of fluid in the bottom of your right chest cavity and this is not nearly enough to try to drain. There is also just minimal fluid in your lungs and your oxygen actually is fairly good here on just 2 L. You may continue to use your home oxygen to the point that you need to help you be comfortable. Forms: PCP List Discharge Date/Time: 06/26/24 16:40
== END 2024-06-26 16:40 | disposition home or self-care (01) ==
LOC: ED 13:18
DX: E11.22 Type 2 diabetes mellitus with diabetic chronic kidney disease (principal); I13.0 Hypertensive heart and chronic kidney disease with heart failure and stage 1 through stage 4 chronic kidney disease, or unspecified chronic kidney disease; N18.9 Chronic kidney disease, unspecified; I50.9 Heart failure, unspecified
CPT/HCPCS: 36415; 80053; 83690; 83880; 85025; 99284

== ENCOUNTER 2024-07-11 15:48 | Outpatient (CLI) | payer MEDICARE, OTHER | END 2024-07-11 23:59 | disposition critical access hospital (66) | LOC: EMS 15:48 | DX: R53.81 Other malaise (principal); R06.00 Dyspnea, unspecified; R05.9 Cough, unspecified; Z99.81 Dependence on supplemental oxygen | CPT/HCPCS: A0425; A0429 ==

== ENCOUNTER 2024-07-11 16:05 | Emergency (ER) | payer MEDICARE, OTHER ==
[2024-07-11 16:26] VITALS: O2SAT 100
--- NOTE | 2024-07-11 16:37 | ED Physician Documentation ---
History of Present Illness - Stated complaint Stated Complaint: NOT FEELING WELL - Chief complaint Chief Complaint: General - History obtained from History obtained from: Patient, Family - Additonal information Additional information: This is a 73-year-old woman with CKD, baseline GFR 16 or so, sees Dr. Sepulveda for that. She your last echo was 2 years ago showing moderate to severe TR with history of aortic valve repair with elevated gradients. Also has a history of left breast cancer, lung cancer, chronic anemia, diabetes. She has been having a tough couple of months with breathing related to fluid retention and is more short of breath today. She has pedal edema. She is on high-dose torsemide. She was noted to be hypoxic prehospital but turned out her oxygen concentrator is out and she is not hypoxic you are on her usual amount of oxygen, 2 L. No chest pain. She was started on Keflex yesterday for a productive cough. PD PAST MEDICAL HISTORY - Past Medical History Cardiovascular: Congestive heart failure, Hypertension, High cholesterol, Atrial flutter, Atrial fibrillation, Valve disorder Respiratory: COPD, Other Neuro: None Endocrine/Autoimmune: Type 2 diabetes GI: None CLASSROOM TECHNOLOGY TECHNICIAN: None : Renal insuffiency HEENT: None Psych: Depression, Anxiety Musculoskeletal: None Derm: None - Past Surgical History Past Surgical History: Yes General: Appendectomy /CLASSROOM TECHNOLOGY TECHNICIAN: Hysterectomy Cardiovascular: Valve replacement - Present Medications Home Medications: Ambulatory Orders Medication Instructions Recorded Confirmed Anastrozole 1 mg PO DAILY 12/21/17 06/10/24 Multivitamin [Theragran] 1 tab PO DAILY 04/02/18 06/10/24 Torsemide 80 mg PO DAILY 12/08/19 06/10/24 Levothyroxine [Synthroid] 110 mcg PO QDAC 09/22/22 06/10/24 Magnesium Oxide [Mag Ox] 400 mg PO QPM 09/22/22 06/10/24 Metoprolol Succinate 25 mg PO PRN PRN 09/22/22 06/10/24 Albuterol Sulf [Ventolin Hfa 1 - 2 puffs INH Q4HR PRN 04/06/23 06/10/24 Inhaler] Fluticasone Propion/Salmeterol 1 each IH BID 04/06/23 06/10/24 [Advair 500-50 Diskus] Indapamide [Lozol] 2.5 mg PO UD 04/06/23 06/10/24 Potassium Chloride 40 meq PO DAILY 04/06/23 06/10/24 allopurinoL [Zyloprim] 100 mg PO DAILY 04/06/23 06/10/24 - Allergies Allergies/Adverse Reactions: Allergies Allergy/AdvReac Type Severity Reaction Status Date / Time gentamicin Allergy ototoxicity Verified 07/11/24 16:11 azithromycin AdvReac Rash Verified 07/11/24 16:11 - Social History Does the pt smoke?: No Smoking Status: Never smoker Does the pt drink ETOH?: Yes Does the pt have substance abuse?: No - Immunizations Immunizations are current?: Yes Immunizations: TDAP >10years/unknown - POLST Patient has POLST: No POLST Status: Full Code PD ED PE NORMAL - Vitals Vital signs reviewed: Yes - General General: Alert and oriented X 3, No acute distress - HEENT HEENT: PERRL, EOMI - Neck Neck: Supple, no meningeal sign, No bony TTP - Cardiac Cardiac: Other (Regular but with some extrasystoles and both systolic and diastolic murmurs) - Respiratory Respiratory: Other (Rales and rhonchi both bases, nonlabored, on supplemental oxygen) - Abdomen Abdomen: Non tender - Extremities Extremities: Other (4+ pitting pedal edema from the ankles down) Results - Vitals Vitals: Vital Signs - 24 hr 07/11/24 16:11 Temperature 36.8 C Heart Rate 82 Respiratory 18 Rate Blood Pressure 137/77 H O2 Saturation 100 Oxygen O2 Source [Without Activity] Room air O2 Source Nasal cannula - Labs Labs: Laboratory Tests 07/11/24 07/11/24 16:48 16:48 WBC 6.1 RBC 3.48 L Hgb 10.7 L Hct 35.4 L MCV 101.7 H MCH 30.7 MCHC 30.2 L RDW 18.7 H Plt Count 138 MPV 9.7 Neut # (Auto) 5.1 Lymph # (Auto) 0.5 L [place] # (Auto) 0.5 Eos # (Auto) 0.1 Baso # (Auto) 0.1 Absolute Nucleated RBC 0.00 Nucleated RBC % 0.0 Sodium 133 L Potassium 4.8 H Chloride 94 L Carbon Dioxide 30 Anion Gap 9.0 BUN 79 H Creatinine 3.0 H Estimated GFR (MDRD) 15 L Glucose 123 H Calcium 9.3 Total Bilirubin 0.8 AST 41 ALT 15 Alkaline Phosphatase 144 H Total Protein 6.7 Albumin 3.2 Globulin 3.5 Albumin/Globulin Ratio 0.9 L - Rads (name of study) 1v chest Relevant Findings:: Prelim report reviewed (chf), Final report received, EMP independent interpretation of test PD Medical Decision Making - ED course ED course: Labs and chest x-ray look stable from prior. She is not an extremis and has normal sats. I offered IV Lasix which was declined, saying he says she does not get any relief from that. Departure - Departure Disposition: Home, Self Care Clinical Impression: CKD (chronic kidney disease), Congestive heart failure Condition: Good Record reviewed to determine appropriate education?: Yes Comments: Talk with your tone artist apprentice about if dialysis is appropriate since he seems to be maxed out on medical management with fluid overload. Otherwise your chest x- ray and other lab indications are fairly stable from prior with good oxygen saturations. Return for new or worsening symptoms. Forms: PCP List
[2024-07-11 16:52] LABS: BASOPHILS # (AUTO) 0.1 10^3/uL (0.0-0.1); EOSINOPHILS # (AUTO) 0.1 10^3/uL (0.0-0.7); EOSINOPHILS % (AUTO) 0.8 %; HCT - HEMATOCRIT 35.4 % (37.0-47.0); HGB - HEMOGLOBIN 10.7 g/dL (12.0-16.0); LYMPHOCYTES # (AUTO) 0.5 10^3/uL (1.5-3.5); LYMPHOCYTES % (AUTO) 7.5 %; MEAN CORPUSCULAR HEMOGLOBIN 30.7 pg (27.0-31.0); MEAN CORPUSCULAR HGB CONC 30.2 g/dL (32.0-36.0); MEAN CORPUSCULAR VOLUME 101.7 fL (81.0-99.0); MEAN PLATELET VOLUME 9.7 fL (7.9-10.8); MONOCYTES # (AUTO) 0.5 10^3/uL (0.0-1.0); MONOCYTES % (AUTO) 7.5 %; NEUTROPHILS # (AUTO) 5.1 10^3/uL (1.5-6.6); NEUTROPHILS % (AUTO) 82.9 %; PLT - PLATELET COUNT 138 10^3/uL (130-450); RED BLOOD COUNT 3.48 10^6/uL (4.20-5.40); RED CELL DISTRIBUTION WIDTH 18.7 % (12.0-15.0); WHITE BLOOD COUNT 6.1 x10^3/uL (4.8-10.8)
--- NOTE | 2024-07-11 16:59 | XRAY Report ---
PROCEDURE: Chest 1V INDICATIONS: dyspnea TECHNIQUE: One view of the chest was acquired. COMPARISON: 06/26/2024. FINDINGS: Surgical changes and devices: Remote midline sternotomy and percutaneous aortic valve. Lungs and pleura: Pulmonary edema, moderate right pleural effusion, right basilar atelectasis. Mediastinum: Mediastinal contours appear normal. At least moderate cardiomegaly. Bones and chest wall: No suspicious bony lesions. Overlying soft tissues appear unremarkable. IMPRESSION: Congestive heart failure exacerbation. Reviewed by: Irving Ray MD on 07/11/2024 4:58 PM PDT Approved by: Irving Ray MD on 07/11/2024 4:58 PM PDT Station ID: [id number]
[2024-07-11 17:10] LABS: ALBUMIN 3.2 g/dL (3.2-5.5); ALBUMIN/GLOBULIN RATIO 0.9 (1.0-2.2); BILIRUBIN,TOTAL 0.8 mg/dL (0.2-1.0); CALCIUM 9.3 mg/dL (8.5-10.3); POTASSIUM 4.8 mmol/L (3.5-4.5); TOTAL PROTEIN 6.7 g/dL (6.4-8.9)
[2024-07-11 17:45] VITALS: BP 121/106
== END 2024-07-11 17:42 | disposition home or self-care (01) ==
LOC: EDUNIT# → ED 16:05
DX: I13.0 Hypertensive heart and chronic kidney disease with heart failure and stage 1 through stage 4 chronic kidney disease, or unspecified chronic kidney disease (principal); I50.9 Heart failure, unspecified; N18.9 Chronic kidney disease, unspecified; E11.22 Type 2 diabetes mellitus with diabetic chronic kidney disease; E78.00 Pure hypercholesterolemia, unspecified; I48.91 Unspecified atrial fibrillation; J44.9 Chronic obstructive pulmonary disease, unspecified; F32.A Depression, unspecified; F41.9 Anxiety disorder, unspecified; Z95.2 Presence of prosthetic heart valve
CPT/HCPCS: 36415; 80053; 85025; 99283; 99284